=== PATIENT | male | born 1965 | race Caucasian/White ===

== ENCOUNTER → 2017-11-24 06:39 | Outpatient (CLI) | payer OTHER, SELFPAY ==
--- NOTE | 2017-11-24 10:18 | NEURO ---
NCS and/or EMG Patient Report Ordering Doctor: Pablo Werner DATE OF SERVICE: 11/24/17 This is a right upper extremity EMG and nerve conduction study performed on this 51-year-old male who suffered an elbow injury in 2017, subsequently he says that he developed tendinitis around his right elbow and since that time has had numbness and tingling in his fourth and fifth digits in his right hand. He is healthy otherwise with no neck pain or diabetes. Right upper extremity sensory and motor nerve conduction studies performed. There is very mild drop off of the ulnar motor amplitude across the elbow with decreased conduction velocity and prolonged latency across the elbow. The ulnar F wave is mildly prolonged compared to the median F-wave. The median motor and sensory and radial sensory responses are normal, the ulnar latencies are mildly prolonged. Right upper extremity needle electromyography is performed. Muscles evaluated included the first dorsal interosseous, abductor pollicis brevis, abductor digiti quinti, brachioradialis, biceps, triceps, and deltoid muscles. Ulnar innervated muscles included the first dorsal interosseous and abductor digiti quinti did demonstrate large motor units but no pathologic spontaneous activity was noted. All other muscles tested demonstrated normal insertional activity with absence of pathologic spontaneous activity. Motor unit potential recruitment pattern and amplitude was normal. 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
== END ==
PROVIDERS: Family Provider Internal Medicine; PCP Internal Medicine; Visit Provider Orthopaedic Surgery
DX: M17.11 Unilateral primary osteoarthritis, right knee (principal); S52.044A Nondisplaced fracture of coronoid process of right ulna, initial encounter for closed fracture; G56.21 Lesion of ulnar nerve, right upper limb; X58.XXXA Exposure to other specified factors, initial encounter
CPT/HCPCS: 95886; 95910

== ENCOUNTER → 2017-12-24 10:13 | Outpatient (CLI) | payer OTHER, SELFPAY ==
[2017-12-24 12:09] LABS: Absolute Lymphocyte Count 1.47 X10^3/ul (0.83-4.51); Absolute Neutrophil Count 3.9 X10^3/uL (2.0-7.7); Basophil# 0.03 X10^3/uL; Basophil% 0.5 % (0-1); Eosinophil# 0.24 X10^3/uL; Eosinophils% 3.8 % (0-5); Hematocrit 43.7 % (40-54); Hemoglobin 15.2 g/dl (13.0-16.5); Lymphocyte # 1.47 X10^3/ul (4.0); Lymphocyte % 23.4 % (19-41); Mean Corp Hgb Conc 34.8 g/gl (32-36); Mean Corpuscular Hgb 32.8 pg (27.0-32.0); Mean Corpuscular Volume 94.2 fL (80-94); Mean Platelet Vol. 10.5 fl (6.2-12.0); Monocyte# 0.65 X10^3/uL; Monocyte% 10.4 % (0-10); Neutrophil # 3.87 X10^3/uL (2.7-7.7); Neutrophil % 61.6 % (47-70); Platelet Count 244 K/mm3 (150-450); RBC Distribution Width CV 13.2 % (11.6-14.6); RBC Distribution Width SD 44.3 fl (35.1-43.9); Red Blood Count 4.64 M/mm3 (4.6-6.2); White Blood Count 6.3 K/mm3 (4.4-11.0)
[2017-12-24 12:15] LABS: POSITIVE COUNT NO; POSITIVE DIFFERENTIAL NO; POSITIVE MORPHOLOGY NO
[2017-12-24 12:28] LABS: Albumin, Serum 3.9 g/dL (3.2-5.0); BUN 17 mg/dL (7-18); BUN/Creat Ratio 16.5 RATIO (10-20); Creatinine, Serum 1.03 mg/dL (0.70-1.30); EST Glomerular Filtration Rate 81 mL/min (>60); Est Glom Filt Rate - Afr Amer 98 mL/min (>60); Glucose 84 mg/dL (74-106); Protein, Total 7.4 g/dL (6.4-8.2)
[2017-12-24 12:29] LABS: ALB/GLOB Ratio 1.1 RATIO (0.9-2.4); AST(SGOT) 23 U/L (15-37); Alanine Aminotransfer ALT/SGPT 46 U/L (16-61); Alkaline Phosphatase 96 U/L (45-117); Anion Gap 8 (5-15); Calcium,Total 8.7 mg/dL (8.5-10.1); Chloride 109 mmol/L (98-107); Globulin 3.5 g/dL (2.2-4.2); Potassium 3.8 mmol/L (3.5-5.1); Sodium Level 144 mmol/L (136-145)
== END ==
PROVIDERS: Family Provider Internal Medicine; PCP Internal Medicine; Visit Provider Internal Medicine Rheumatology
DX: L40.59 Other psoriatic arthropathy (principal); Z79.899 Other long term (current) drug therapy; L40.8 Other psoriasis; J30.9 Allergic rhinitis, unspecified
CPT/HCPCS: 36415; 80053; 85025

== ENCOUNTER → 2018-03-29 15:26 | Outpatient (CLI) | payer OTHER, SELFPAY ==
[2018-03-29 17:39] LABS: Absolute Lymphocyte Count 1.55 X10^3/ul (0.83-4.51); Absolute Neutrophil Count 3.6 X10^3/uL (2.0-7.7); Basophil# 0.04 X10^3/uL; Basophil% 0.6 % (0-1); Eosinophil# 0.31 X10^3/uL; Eosinophils% 4.8 % (0-5); Hematocrit 43.1 % (40-54); Hemoglobin 14.6 g/dl (13.0-16.5); Lymphocyte # 1.55 X10^3/ul (4.0); Lymphocyte % 23.9 % (19-41); Mean Corp Hgb Conc 33.9 g/gl (32-36); Mean Corpuscular Hgb 32.3 pg (27.0-32.0); Mean Corpuscular Volume 95.4 fL (80-94); Mean Platelet Vol. 10.9 fl (6.2-12.0); Monocyte# 1.01 X10^3/uL; Monocyte% 15.6 % (0-10); Neutrophil # 3.55 X10^3/uL (2.7-7.7); Neutrophil % 54.6 % (47-70); Platelet Count 223 K/mm3 (150-450); RBC Distribution Width CV 13.4 % (11.6-14.6); RBC Distribution Width SD 46.4 fl (35.1-43.9); Red Blood Count 4.52 M/mm3 (4.6-6.2); White Blood Count 6.5 K/mm3 (4.4-11.0)
[2018-03-29 17:45] LABS: POSITIVE COUNT NO; POSITIVE DIFFERENTIAL NO; POSITIVE MORPHOLOGY NO
[2018-03-29 18:00] LABS: ALB/GLOB Ratio 1.2 RATIO (0.9-2.4); AST(SGOT) 35 U/L (15-37); Alanine Aminotransfer ALT/SGPT 58 U/L (16-61); Albumin, Serum 3.9 g/dL (3.2-5.0); Alkaline Phosphatase 77 U/L (45-117); Anion Gap 11 (5-15); BUN 14 mg/dL (7-18); BUN/Creat Ratio 16.2 RATIO (10-20); Calcium,Total 8.8 mg/dL (8.5-10.1); Chloride 105 mmol/L (98-107); Creatinine, Serum 0.86 mg/dL (0.70-1.30); EST Glomerular Filtration Rate 99 mL/min (>60); Est Glom Filt Rate - Afr Amer 120 mL/min (>60); Globulin 3.3 g/dL (2.2-4.2); Glucose 98 mg/dL (74-106); Potassium 3.8 mmol/L (3.5-5.1); Protein, Total 7.2 g/dL (6.4-8.2); Sodium Level 143 mmol/L (136-145)
== END ==
PROVIDERS: Family Provider Internal Medicine; PCP Internal Medicine; Visit Provider Internal Medicine Rheumatology
DX: L40.59 Other psoriatic arthropathy (principal); Z79.899 Other long term (current) drug therapy; L40.8 Other psoriasis; J30.9 Allergic rhinitis, unspecified
CPT/HCPCS: 36415; 80053; 85025

== ENCOUNTER → 2018-06-23 09:14 | Outpatient (CLI) | payer OTHER, SELFPAY ==
[2018-06-23 10:16] LABS: Absolute Lymphocyte Count 1.72 X10^3/ul (0.83-4.51); Absolute Neutrophil Count 3.2 X10^3/uL (2.0-7.7); Basophil# 0.05 X10^3/uL; Basophil% 0.8 % (0-1); Eosinophil# 0.39 X10^3/uL; Eosinophils% 6.3 % (0-5); Hematocrit 44.3 % (40-54); Hemoglobin 14.9 g/dl (13.0-16.5); Lymphocyte # 1.72 X10^3/ul (4.0); Lymphocyte % 27.7 % (19-41); Mean Corp Hgb Conc 33.6 g/gl (32-36); Mean Corpuscular Hgb 32.3 pg (27.0-32.0); Mean Corpuscular Volume 95.9 fL (80-94); Mean Platelet Vol. 10.2 fl (6.2-12.0); Monocyte# 0.89 X10^3/uL; Monocyte% 14.3 % (0-10); Neutrophil # 3.15 X10^3/uL (2.7-7.7); Neutrophil % 50.7 % (47-70); Platelet Count 215 K/mm3 (150-450); RBC Distribution Width CV 13.2 % (11.6-14.6); RBC Distribution Width SD 45.6 fl (35.1-43.9); Red Blood Count 4.62 M/mm3 (4.6-6.2); White Blood Count 6.2 K/mm3 (4.4-11.0)
[2018-06-23 10:22] LABS: POSITIVE COUNT NO; POSITIVE DIFFERENTIAL NO; POSITIVE MORPHOLOGY NO
[2018-06-23 10:34] LABS: ALB/GLOB Ratio 1.1 RATIO (0.9-2.4); AST(SGOT) 22 U/L (15-37); Alanine Aminotransfer ALT/SGPT 31 U/L (16-61); Albumin, Serum 3.7 g/dL (3.2-5.0); Alkaline Phosphatase 90 U/L (45-117); Anion Gap 4 (5-15); BUN 11 mg/dL (7-18); BUN/Creat Ratio 12.3 RATIO (10-20); Calcium,Total 8.5 mg/dL (8.5-10.1); Chloride 107 mmol/L (98-107); EST Glomerular Filtration Rate 95 mL/min (>60); Est Glom Filt Rate - Afr Amer 115 mL/min (>60); Globulin 3.3 g/dL (2.2-4.2); Glucose 87 mg/dL (74-106); Potassium 3.8 mmol/L (3.5-5.1); Sodium Level 140 mmol/L (136-145)
== END ==
PROVIDERS: Family Provider Internal Medicine; PCP Internal Medicine; Referring Provider Internal Medicine Rheumatology; Visit Provider Internal Medicine Rheumatology
DX: L40.59 Other psoriatic arthropathy (principal); Z79.899 Other long term (current) drug therapy; L40.8 Other psoriasis; M72.2 Plantar fascial fibromatosis; J30.9 Allergic rhinitis, unspecified
CPT/HCPCS: 36415; 80053; 85025

== ENCOUNTER → 2018-09-28 10:06 | Outpatient (CLI) | payer OTHER, SELFPAY ==
[2018-09-28 12:04] LABS: Absolute Lymphocyte Count 1.68 X10^3/ul (0.83-4.51); Absolute Neutrophil Count 3.5 X10^3/uL (2.0-7.7); Basophil# 0.03 X10^3/uL; Basophil% 0.5 % (0-1); Eosinophil# 0.24 X10^3/uL; Eosinophils% 3.9 % (0-5); Hematocrit 46.1 % (40-54); Hemoglobin 15.3 g/dl (13.0-16.5); Lymphocyte # 1.68 X10^3/ul (4.0); Mean Corp Hgb Conc 33.2 g/gl (32-36); Mean Corpuscular Hgb 31.9 pg (27.0-32.0); Mean Corpuscular Volume 96.2 fL (80-94); Mean Platelet Vol. 10.6 fl (6.2-12.0); Monocyte# 0.72 X10^3/uL; Monocyte% 11.6 % (0-10); Neutrophil # 3.54 X10^3/uL (2.7-7.7); Neutrophil % 56.8 % (47-70); Platelet Count 241 K/mm3 (150-450); RBC Distribution Width CV 13.1 % (11.6-14.6); RBC Distribution Width SD 45.3 fl (35.1-43.9); Red Blood Count 4.79 M/mm3 (4.6-6.2); White Blood Count 6.2 K/mm3 (4.4-11.0)
[2018-09-28 12:10] LABS: POSITIVE COUNT NO; POSITIVE DIFFERENTIAL NO; POSITIVE MORPHOLOGY NO
[2018-09-28 12:13] LABS: ALB/GLOB Ratio 1.1 RATIO (0.9-2.4); AST(SGOT) 27 U/L (15-37); Alanine Aminotransfer ALT/SGPT 43 U/L (16-61); Albumin, Serum 3.8 g/dL (3.2-5.0); Alkaline Phosphatase 96 U/L (45-117); Anion Gap 7 (5-15); BUN 14 mg/dL (7-18); Chloride 107 mmol/L (98-107); Creatinine, Serum 0.93 mg/dL (0.70-1.30); EST Glomerular Filtration Rate 91 mL/min (>60); Est Glom Filt Rate - Afr Amer 110 mL/min (>60); Globulin 3.5 g/dL (2.2-4.2); Glucose 101 mg/dL (74-106); Potassium 4.2 mmol/L (3.5-5.1); Protein, Total 7.3 g/dL (6.4-8.2); Sodium Level 141 mmol/L (136-145)
== END ==
PROVIDERS: Family Provider Internal Medicine; PCP Internal Medicine; Referring Provider Internal Medicine Rheumatology; Visit Provider Internal Medicine Rheumatology
DX: L40.59 Other psoriatic arthropathy (principal); Z79.899 Other long term (current) drug therapy; L40.8 Other psoriasis; M72.2 Plantar fascial fibromatosis; J30.9 Allergic rhinitis, unspecified
CPT/HCPCS: 36415; 80053; 85025

== ENCOUNTER → 2018-12-27 | Outpatient (CLI) | payer OTHER, SELFPAY ==
[2018-12-27 13:53] LABS: Absolute Lymphocyte Count 1.97 X10^3/ul (0.83-4.51); Absolute Neutrophil Count 3.5 X10^3/uL (2.0-7.7); Basophil# 0.03 X10^3/uL; Basophil% 0.5 % (0-1); Hematocrit 44.3 % (40-54); Hemoglobin 15.5 g/dl (13.0-16.5); Lymphocyte # 1.97 X10^3/ul (4.0); Lymphocyte % 29.8 % (19-41); Mean Corpuscular Hgb 32.5 pg (27.0-32.0); Mean Corpuscular Volume 92.9 fL (80-94); Mean Platelet Vol. 10.2 fl (6.2-12.0); Monocyte# 0.86 X10^3/uL; Neutrophil # 3.52 X10^3/uL (2.7-7.7); Neutrophil % 53.4 % (47-70); Platelet Count 242 K/mm3 (150-450); RBC Distribution Width CV 13.4 % (11.6-14.6); RBC Distribution Width SD 45.2 fl (35.1-43.9); Red Blood Count 4.77 M/mm3 (4.6-6.2); White Blood Count 6.6 K/mm3 (4.4-11.0)
[2018-12-27 13:56] LABS: POSITIVE COUNT NO; POSITIVE DIFFERENTIAL NO; POSITIVE MORPHOLOGY NO
[2018-12-27 14:03] LABS: ALB/GLOB Ratio 1.2 RATIO (0.9-2.4); AST(SGOT) 23 U/L (15-37); Alanine Aminotransfer ALT/SGPT 40 U/L (16-61); Alkaline Phosphatase 88 U/L (45-117); Anion Gap 3 (5-15); BUN 13 mg/dL (7-18); BUN/Creat Ratio 13.1 RATIO (10-20); Calcium,Total 8.8 mg/dL (8.5-10.1); Chloride 108 mmol/L (98-107); Creatinine, Serum 0.99 mg/dL (0.70-1.30); EST Glomerular Filtration Rate 85 mL/min (>60); Est Glom Filt Rate - Afr Amer 103 mL/min (>60); Globulin 3.3 g/dL (2.2-4.2); Glucose 84 mg/dL (74-106); Protein, Total 7.3 g/dL (6.4-8.2); Sodium Level 140 mmol/L (136-145)
== END | disposition home or self-care (01) ==
LOC: MTLAB 12:55
PROVIDERS: Family Provider Internal Medicine; PCP Internal Medicine; Referring Provider Internal Medicine Rheumatology; Visit Provider Internal Medicine Rheumatology
DX: L40.59 Other psoriatic arthropathy (principal); Z79.899 Other long term (current) drug therapy; L40.8 Other psoriasis; M72.2 Plantar fascial fibromatosis; J30.9 Allergic rhinitis, unspecified
CPT/HCPCS: 36415; 80053; 85025

== ENCOUNTER → 2019-04-01 09:01 | Outpatient (CLI) | payer OTHER, SELFPAY ==
[2019-04-01 10:52] LABS: Absolute Lymphocyte Count 1.69 X10^3/ul (0.83-4.51); Absolute Neutrophil Count 4.2 X10^3/uL (2.0-7.7); Basophil# 0.04 X10^3/uL; Basophil% 0.6 % (0-1); Eosinophils% 4.2 % (0-5); Hematocrit 44.6 % (40-54); Hemoglobin 15.7 g/dl (13.0-16.5); Lymphocyte # 1.69 X10^3/ul (4.0); Lymphocyte % 23.8 % (19-41); Mean Corp Hgb Conc 35.2 g/gl (32-36); Mean Corpuscular Hgb 32.6 pg (27.0-32.0); Mean Corpuscular Volume 92.5 fL (80-94); Mean Platelet Vol. 10.8 fl (6.2-12.0); Monocyte# 0.89 X10^3/uL; Monocyte% 12.5 % (0-10); Neutrophil # 4.16 X10^3/uL (2.7-7.7); Neutrophil % 58.5 % (47-70); Platelet Count 222 K/mm3 (150-450); RBC Distribution Width CV 13.1 % (11.6-14.6); Red Blood Count 4.82 M/mm3 (4.6-6.2); White Blood Count 7.1 K/mm3 (4.4-11.0)
[2019-04-01 10:58] LABS: POSITIVE COUNT NO; POSITIVE DIFFERENTIAL NO; POSITIVE MORPHOLOGY NO
[2019-04-01 11:00] LABS: ALB/GLOB Ratio 1.1 RATIO (0.9-2.4); AST(SGOT) 20 U/L (15-37); Alanine Aminotransfer ALT/SGPT 34 U/L (16-61); Albumin, Serum 3.8 g/dL (3.2-5.0); Alkaline Phosphatase 91 U/L (45-117); Anion Gap 8 (5-15); BUN 16 mg/dL (7-18); BUN/Creat Ratio 15.2 RATIO (10-20); Calcium,Total 8.9 mg/dL (8.5-10.1); Chloride 107 mmol/L (98-107); Creatinine, Serum 1.05 mg/dL (0.70-1.30); EST Glomerular Filtration Rate 79 mL/min (>60); Est Glom Filt Rate - Afr Amer 96 mL/min (>60); Globulin 3.4 g/dL (2.2-4.2); Glucose 127 mg/dL (74-106); Potassium 3.8 mmol/L (3.5-5.1); Protein, Total 7.2 g/dL (6.4-8.2); Sodium Level 141 mmol/L (136-145)
== END ==
PROVIDERS: Family Provider Internal Medicine; PCP Internal Medicine; Referring Provider Internal Medicine Rheumatology; Visit Provider Internal Medicine Rheumatology
DX: L40.59 Other psoriatic arthropathy (principal); Z79.899 Other long term (current) drug therapy; L40.8 Other psoriasis; M72.2 Plantar fascial fibromatosis; J30.9 Allergic rhinitis, unspecified
CPT/HCPCS: 36415; 80053; 85025

== ENCOUNTER → 2019-06-27 12:41 | Outpatient (CLI) | payer OTHER, SELFPAY ==
[2019-06-27 13:55] LABS: Absolute Lymphocyte Count 1.63 X10^3/uL (0.83-4.51); Absolute Neutrophil Count 3.7 X10^3/uL (2.0-7.7); Basophil# 0.07 X10^3/uL; Eosinophil# 0.33 X10^3/uL; Eosinophils% 4.9 % (0-5); Hematocrit 45.4 % (40-54); Hemoglobin 15.8 g/dL (13.0-16.5); Lymphocyte # 1.63 X10^3/ul (4.0); Lymphocyte % 24.3 % (19-41); Mean Corp Hgb Conc 34.8 g/dL (32-36); Mean Corpuscular Hgb 32.8 pg (27.0-32.0); Mean Corpuscular Volume 94.2 fL (80-94); Mean Platelet Vol. 10.5 fl (6.2-12.0); Monocyte# 0.91 X10^3/uL; Monocyte% 13.5 % (0-10); NRBC Flagged by Analyzer 0 % (0-5); Neutrophil # 3.74 X10^3/uL (2.7-7.7); Neutrophil % 55.7 % (47-70); Platelet Count 233 K/mm3 (150-450); RBC Distribution Width CV 12.4 % (11.6-14.6); RBC Distribution Width SD 42.6 fl (35.1-43.9); Red Blood Count 4.82 M/mm3 (4.6-6.2); White Blood Count 6.7 K/mm3 (4.4-11.0)
[2019-06-27 14:09] LABS: ALB/GLOB Ratio 1.4 RATIO (0.9-2.4); AST(SGOT) 33 U/L (15-37); Alanine Aminotransfer ALT/SGPT 43 U/L (16-61); Albumin, Serum 4.2 g/dL (3.2-5.0); Alkaline Phosphatase 95 U/L (45-117); Anion Gap 7 (5-15); BUN 11 mg/dL (7-18); BUN/Creat Ratio 11.9 RATIO (10-20); Calcium,Total 8.5 mg/dL (8.5-10.1); Chloride 109 mmol/L (98-107); Creatinine, Serum 0.93 mg/dL (0.70-1.30); EST Glomerular Filtration Rate 91 mL/min (>60); Est Glom Filt Rate - Afr Amer 110 mL/min (>60); Globulin 2.9 g/dL (2.2-4.2); Glucose 92 mg/dL (74-106); Potassium 4.3 mmol/L (3.5-5.1); Protein, Total 7.1 g/dL (6.4-8.2); Sodium Level 143 mmol/L (136-145)
== END ==
PROVIDERS: Family Provider Internal Medicine; PCP Internal Medicine; Referring Provider Internal Medicine Rheumatology; Visit Provider Internal Medicine Rheumatology
DX: L40.59 Other psoriatic arthropathy (principal); Z79.899 Other long term (current) drug therapy; L40.8 Other psoriasis; M72.2 Plantar fascial fibromatosis; J30.9 Allergic rhinitis, unspecified
CPT/HCPCS: 36415; 80053; 85025

== ENCOUNTER → 2019-09-29 13:08 | Outpatient (CLI) | payer OTHER, SELFPAY ==
[2019-09-29 14:15] LABS: Absolute Lymphocyte Count 1.96 X10^3/uL (0.83-4.51); Absolute Neutrophil Count 3.3 X10^3/uL (2.0-7.7); Basophil# 0.06 X10^3/uL; Basophil% 0.9 % (0-1); Eosinophil# 0.24 X10^3/uL; Eosinophils% 3.7 % (0-5); Hemoglobin 15.3 g/dL (13.0-16.5); Lymphocyte # 1.96 X10^3/ul (4.0); Lymphocyte % 30.2 % (19-41); Mean Corp Hgb Conc 34.8 g/dL (32-36); Mean Corpuscular Hgb 33.2 pg (27.0-32.0); Mean Corpuscular Volume 95.4 fL (80-94); Mean Platelet Vol. 10.2 fl (6.2-12.0); Monocyte# 0.95 X10^3/uL; Monocyte% 14.7 % (0-10); NRBC Flagged by Analyzer 0 % (0-5); Neutrophil # 3.25 X10^3/uL (2.7-7.7); Neutrophil % 50.2 % (47-70); Platelet Count 245 K/mm3 (150-450); RBC Distribution Width CV 12.6 % (11.6-14.6); RBC Distribution Width SD 44.5 fl (35.1-43.9); Red Blood Count 4.61 M/mm3 (4.6-6.2); White Blood Count 6.5 K/mm3 (4.4-11.0)
[2019-09-29 14:41] LABS: ALB/GLOB Ratio 1.1 RATIO (0.9-2.4); AST(SGOT) 23 U/L (15-37); Alanine Aminotransfer ALT/SGPT 44 U/L (16-61); Albumin, Serum 3.9 g/dL (3.2-5.0); Alkaline Phosphatase 77 U/L (45-117); Anion Gap 3 (5-15); BUN 16 mg/dL (7-18); BUN/Creat Ratio 17.7 RATIO (10-20); Calcium,Total 8.8 mg/dL (8.5-10.1); Chloride 108 mmol/L (98-107); EST Glomerular Filtration Rate 94 mL/min (>60); Est Glom Filt Rate - Afr Amer 113 mL/min (>60); Globulin 3.4 g/dL (2.2-4.2); Glucose 82 mg/dL (74-106); Potassium 3.8 mmol/L (3.5-5.1); Protein, Total 7.3 g/dL (6.4-8.2); Sodium Level 139 mmol/L (136-145)
== END ==
PROVIDERS: Family Provider Internal Medicine; PCP Internal Medicine; Referring Provider Internal Medicine Rheumatology; Visit Provider Internal Medicine Rheumatology
DX: L40.59 Other psoriatic arthropathy (principal); Z79.899 Other long term (current) drug therapy; L40.8 Other psoriasis; M72.2 Plantar fascial fibromatosis; J30.9 Allergic rhinitis, unspecified
CPT/HCPCS: 36415; 80053; 85025

== ENCOUNTER → 2019-12-19 11:08 | Outpatient (CLI) | payer OTHER, SELFPAY ==
[2019-12-19 12:11] LABS: Absolute Lymphocyte Count 1.55 X10^3/uL (0.83-4.51); Absolute Neutrophil Count 4.4 X10^3/uL (2.0-7.7); Basophil# 0.07 X10^3/uL; Eosinophil# 0.41 X10^3/uL; Eosinophils% 5.6 % (0-5); Hematocrit 46.2 % (40-54); Hemoglobin 16.4 g/dL (13.0-16.5); Lymphocyte # 1.55 X10^3/ul (4.0); Lymphocyte % 21.3 % (19-41); Mean Corp Hgb Conc 35.5 g/dL (32-36); Mean Corpuscular Volume 95.9 fL (80-94); Mean Platelet Vol. 10.5 fl (6.2-12.0); Monocyte# 0.86 X10^3/uL; Monocyte% 11.8 % (0-10); NRBC Flagged by Analyzer 0 % (0-5); Neutrophil # 4.36 X10^3/uL (2.7-7.7); Neutrophil % 59.8 % (47-70); Platelet Count 197 K/mm3 (150-450); RBC Distribution Width CV 12.9 % (11.6-14.6); RBC Distribution Width SD 43.8 fl (35.1-43.9); Red Blood Count 4.82 M/mm3 (4.6-6.2); White Blood Count 7.3 K/mm3 (4.4-11.0)
[2019-12-19 12:37] LABS: ALB/GLOB Ratio 1.1 RATIO (0.9-2.4); AST(SGOT) 25 U/L (15-37); Alanine Aminotransfer ALT/SGPT 31 U/L (16-61); Alkaline Phosphatase 104 U/L (45-117); Anion Gap 5 (5-15); BUN 17 mg/dL (7-18); BUN/Creat Ratio 16.7 RATIO (10-20); Calcium,Total 9.1 mg/dL (8.5-10.1); Chloride 110 mmol/L (98-107); Creatinine, Serum 1.02 mg/dL (0.70-1.30); EST Glomerular Filtration Rate 82 mL/min (>60); Est Glom Filt Rate - Afr Amer 99 mL/min (>60); Globulin 3.5 g/dL (2.2-4.2); Glucose 91 mg/dL (74-106); Potassium 4.1 mmol/L (3.5-5.1); Protein, Total 7.5 g/dL (6.4-8.2); Sodium Level 141 mmol/L (136-145)
== END ==
PROVIDERS: PCP Internal Medicine; Referring Provider Internal Medicine Rheumatology; Visit Provider Internal Medicine Rheumatology
DX: L40.59 Other psoriatic arthropathy (principal); Z79.899 Other long term (current) drug therapy; L40.8 Other psoriasis; M72.2 Plantar fascial fibromatosis; J30.9 Allergic rhinitis, unspecified
CPT/HCPCS: 36415; 80053; 85025

== ENCOUNTER → 2020-05-03 09:41 | Outpatient (CLI) | payer OTHER, SELFPAY ==
[2020-05-03 12:32] LABS: Basophil# 0.04 X10^3/uL; Basophil% 0.5 % (0-1); Eosinophil# 0.05 X10^3/uL; Eosinophils% 0.6 % (0-5); Hematocrit 45.4 % (40-54); Hemoglobin 15.4 g/dL (13.0-16.5); Lymphocyte % 13.8 % (19-41); Mean Corp Hgb Conc 33.9 g/dL (32-36); Mean Corpuscular Hgb 32.8 pg (27.0-32.0); Mean Corpuscular Volume 96.6 fL (80-94); Mean Platelet Vol. 10.8 fl (6.2-12.0); Monocyte# 0.32 X10^3/uL; Monocyte% 3.7 % (0-10); NRBC Flagged by Analyzer 0 % (0-5); Neutrophil # 6.98 X10^3/uL (2.7-7.7); Neutrophil % 80.5 % (47-70); Platelet Count 253 K/mm3 (150-450); RBC Distribution Width CV 13.2 % (11.6-14.6); White Blood Count 8.7 K/mm3 (4.4-11.0)
[2020-05-03 12:57] LABS: AST(SGOT) 16 U/L (15-37); Alanine Aminotransfer ALT/SGPT 36 U/L (16-61); Albumin, Serum 3.8 g/dL (3.2-5.0); Alkaline Phosphatase 90 U/L (45-117); Anion Gap 6 (5-15); BUN 16 mg/dL (7-18); BUN/Creat Ratio 15.5 RATIO (10-20); Calcium,Total 8.8 mg/dL (8.5-10.1); Chloride 105 mmol/L (98-107); Creatinine, Serum 1.03 mg/dL (0.70-1.30); EST Glomerular Filtration Rate 81 mL/min (>60); Est Glom Filt Rate - Afr Amer 97 mL/min (>60); Globulin 3.7 g/dL (2.2-4.2); Glucose 164 mg/dL (74-106); Potassium 3.8 mmol/L (3.5-5.1); Protein, Total 7.5 g/dL (6.4-8.2); Sodium Level 138 mmol/L (136-145)
== END ==
PROVIDERS: PCP Internal Medicine; Referring Provider Internal Medicine Rheumatology; Visit Provider Internal Medicine Rheumatology
DX: L40.59 Other psoriatic arthropathy (principal); Z79.899 Other long term (current) drug therapy; L40.8 Other psoriasis; M72.2 Plantar fascial fibromatosis; J30.9 Allergic rhinitis, unspecified
CPT/HCPCS: 36415; 80053; 85025

== ENCOUNTER → 2020-07-17 15:06 | Outpatient (CLI) | payer OTHER, SELFPAY ==
[2020-07-17 17:54] LABS: Absolute Lymphocyte Count 1.72 X10^3/uL (0.83-4.51); Absolute Neutrophil Count 8.7 X10^3/uL (2.0-7.7); Basophil# 0.08 X10^3/uL; Basophil% 0.7 % (0-1); Eosinophil# 0.22 X10^3/uL; Eosinophils% 1.9 % (0-5); Hematocrit 44.7 % (40-54); Hemoglobin 15.1 g/dL (13.0-16.5); Lymphocyte # 1.72 X10^3/ul (4.0); Lymphocyte % 14.6 % (19-41); Mean Corp Hgb Conc 33.8 g/dL (32-36); Mean Corpuscular Hgb 32.5 pg (27.0-32.0); Mean Corpuscular Volume 96.3 fL (80-94); Mean Platelet Vol. 10.4 fl (6.2-12.0); Monocyte% 9.3 % (0-10); NRBC Flagged by Analyzer 0 % (0-5); Neutrophil # 8.65 X10^3/uL (2.7-7.7); Neutrophil % 73.2 % (47-70); Platelet Count 245 K/mm3 (150-450); RBC Distribution Width SD 46.1 fl (35.1-43.9); Red Blood Count 4.64 M/mm3 (4.6-6.2); White Blood Count 11.8 K/mm3 (4.4-11.0)
[2020-07-17 18:10] LABS: AST(SGOT) 19 U/L (15-37); Alanine Aminotransfer ALT/SGPT 35 U/L (16-61); Albumin, Serum 3.7 g/dL (3.2-5.0); Alkaline Phosphatase 96 U/L (45-117); Anion Gap 7 (5-15); BUN 14 mg/dL (7-18); BUN/Creat Ratio 13.7 RATIO (10-20); Calcium,Total 8.5 mg/dL (8.5-10.1); Chloride 106 mmol/L (98-107); Creatinine, Serum 1.02 mg/dL (0.70-1.30); EST Glomerular Filtration Rate 81 mL/min (>60); Est Glom Filt Rate - Afr Amer 98 mL/min (>60); Globulin 3.6 g/dL (2.2-4.2); Glucose 87 mg/dL (74-106); Potassium 3.8 mmol/L (3.5-5.1); Protein, Total 7.3 g/dL (6.4-8.2); Sodium Level 141 mmol/L (136-145)
== END ==
PROVIDERS: PCP Internal Medicine; Referring Provider Internal Medicine Rheumatology; Visit Provider Internal Medicine Rheumatology
DX: L40.59 Other psoriatic arthropathy (principal); Z79.899 Other long term (current) drug therapy; L40.8 Other psoriasis; M72.2 Plantar fascial fibromatosis; J30.9 Allergic rhinitis, unspecified
CPT/HCPCS: 36415; 80053; 85025

== ENCOUNTER → 2020-09-07 13:13 | Outpatient (CLI) | payer OTHER, SELFPAY ==
[2020-07-31 14:25] VITALS: BMI 28.0
--- NOTE | 2020-09-07 13:20 | RAD_ITS ---
STUDY: X-RAY CHEST REASON FOR EXAM: Male, 54 years old. sob, chronic asthma since childhood. no other chest complaints. primary MD checking for scar tissue in the lungs also. TECHNIQUE: PA and lateral views of the chest. COMPARISON: None. FINDINGS: The lungs are clear and expanded. There is no demonstrated pleural abnormality. Normal size heart. Normal mediastinum and mary. Normal visualized pulmonary arteries. Normal visualized aortic arch and descending thoracic aorta. Normal visualized thoracic spine. Normal visualized ribs, clavicles, and shoulders. There is no demonstrated abnormality of the visualized soft tissue structures of the upper abdomen. RAD/Chest PA and Lateral IMPRESSION: Normal x-ray examination of the chest. Electronically Signed: Rex Mattson MD at 17:01 EST Tel , Service support ,
[2020-09-07 16:16] LABS: Absolute Lymphocyte Count 0.94 X10^3/uL (0.83-4.51); Absolute Neutrophil Count 9.6 X10^3/uL (2.0-7.7); Basophil# 0.02 X10^3/uL; Basophil% 0.2 % (0-1); Hematocrit 46.1 % (40-54); Hemoglobin 15.5 g/dL (13.0-16.5); Lymphocyte # 0.94 X10^3/ul (4.0); Lymphocyte % 8.4 % (19-41); Mean Corp Hgb Conc 33.6 g/dL (32-36); Mean Corpuscular Volume 95.2 fL (80-94); Mean Platelet Vol. 10.6 fl (6.2-12.0); Monocyte# 0.64 X10^3/uL; Monocyte% 5.7 % (0-10); NRBC Flagged by Analyzer 0 % (0-5); Neutrophil # 9.58 X10^3/uL (2.7-7.7); Neutrophil % 85.2 % (47-70); Platelet Count 272 K/mm3 (150-450); RBC Distribution Width CV 12.7 % (11.6-14.6); RBC Distribution Width SD 43.9 fl (35.1-43.9); Red Blood Count 4.84 M/mm3 (4.6-6.2); White Blood Count 11.2 K/mm3 (4.4-11.0)
[2020-09-11 19:38] LABS: Immunoglobulin E 37 IU/mL (6-495)
== END ==
PROVIDERS: PCP Internal Medicine; Referring Provider Internal Medicine Pulmonary Disease; Visit Provider Internal Medicine Pulmonary Disease
DX: R06.00 Dyspnea, unspecified (principal); J45.909 Unspecified asthma, uncomplicated; T78.40XA Allergy, unspecified, initial encounter
CPT/HCPCS: 36415; 71046; 82785; 85025

== ENCOUNTER → 2020-10-05 14:09 | Outpatient (CLI) | payer OTHER, SELFPAY ==
[2020-07-31 14:25] VITALS: BMI 28.0
[2020-10-05 17:38] LABS: Absolute Lymphocyte Count 2.09 X10^3/uL (0.83-4.51); Absolute Neutrophil Count 3.5 X10^3/uL (2.0-7.7); Basophil# 0.07 X10^3/uL; Eosinophils% 4.3 % (0-5); Hematocrit 46.3 % (40-54); Hemoglobin 15.8 g/dL (13.0-16.5); Lymphocyte # 2.09 X10^3/ul (4.0); Mean Corp Hgb Conc 34.1 g/dL (32-36); Mean Corpuscular Hgb 32.8 pg (27.0-32.0); Mean Corpuscular Volume 96.3 fL (80-94); Mean Platelet Vol. 10.5 fl (6.2-12.0); Monocyte# 0.94 X10^3/uL; Monocyte% 13.5 % (0-10); NRBC Flagged by Analyzer 0 % (0-5); Neutrophil % 50.3 % (47-70); Platelet Count 286 K/mm3 (150-450); RBC Distribution Width SD 45.7 fl (35.1-43.9); Red Blood Count 4.81 M/mm3 (4.6-6.2)
[2020-10-05 17:59] LABS: ALB/GLOB Ratio 1.1 RATIO (0.9-2.4); AST(SGOT) 19 U/L (15-37); Alanine Aminotransfer ALT/SGPT 35 U/L (16-61); Albumin, Serum 3.8 g/dL (3.2-5.0); Alkaline Phosphatase 98 U/L (45-117); Anion Gap 6 (5-15); BUN 16 mg/dL (7-18); BUN/Creat Ratio 15.8 RATIO (10-20); Calcium,Total 8.8 mg/dL (8.5-10.1); Chloride 107 mmol/L (98-107); Creatinine, Serum 1.01 mg/dL (0.70-1.30); EST Glomerular Filtration Rate 82 mL/min (>60); Est Glom Filt Rate - Afr Amer 99 mL/min (>60); Globulin 3.5 g/dL (2.2-4.2); Glucose 104 mg/dL (74-106); Potassium 3.5 mmol/L (3.5-5.1); Protein, Total 7.3 g/dL (6.4-8.2); Sodium Level 140 mmol/L (136-145)
== END ==
PROVIDERS: PCP Internal Medicine; Referring Provider Internal Medicine Rheumatology; Visit Provider Internal Medicine Rheumatology
DX: L40.59 Other psoriatic arthropathy (principal); Z79.899 Other long term (current) drug therapy; L40.8 Other psoriasis; M72.2 Plantar fascial fibromatosis; J30.9 Allergic rhinitis, unspecified
CPT/HCPCS: 36415; 80053; 85025

== ENCOUNTER → 2020-12-27 16:07 | Outpatient (CLI) | payer OTHER, SELFPAY ==
[2020-12-27 17:46] LABS: Absolute Lymphocyte Count 2.39 X10^3/uL (0.83-4.51); Absolute Neutrophil Count 6.4 X10^3/uL (2.0-7.7); Basophil# 0.07 X10^3/uL; Basophil% 0.7 % (0-1); Eosinophil# 0.31 X10^3/uL; Eosinophils% 2.9 % (0-5); Hematocrit 44.4 % (40-54); Hemoglobin 15.5 g/dL (13.0-16.5); Lymphocyte # 2.39 X10^3/ul (4.0); Lymphocyte % 22.5 % (19-41); Mean Corp Hgb Conc 34.9 g/dL (32-36); Mean Corpuscular Hgb 33.5 pg (27.0-32.0); Mean Corpuscular Volume 95.9 fL (80-94); Mean Platelet Vol. 10.2 fl (6.2-12.0); Monocyte# 1.32 X10^3/uL; Monocyte% 12.4 % (0-10); NRBC Flagged by Analyzer 0 % (0-5); Neutrophil # 6.41 X10^3/uL (2.7-7.7); Neutrophil % 60.3 % (47-70); Platelet Count 262 K/mm3 (150-450); RBC Distribution Width CV 13.2 % (11.6-14.6); RBC Distribution Width SD 45.3 fl (35.1-43.9); Red Blood Count 4.63 M/mm3 (4.6-6.2); White Blood Count 10.6 K/mm3 (4.4-11.0)
[2020-12-27 18:23] LABS: AST(SGOT) 22 U/L (15-37); Alanine Aminotransfer ALT/SGPT 34 U/L (16-61); Albumin, Serum 3.8 g/dL (3.2-5.0); Alkaline Phosphatase 94 U/L (45-117); Anion Gap 4 (5-15); BUN 13 mg/dL (7-18); BUN/Creat Ratio 13.5 RATIO (10-20); Chloride 108 mmol/L (98-107); Creatinine, Serum 0.97 mg/dL (0.70-1.30); EST Glomerular Filtration Rate 86 mL/min (>60); Est Glom Filt Rate - Afr Amer 105 mL/min (>60); Globulin 3.7 g/dL (2.2-4.2); Glucose 84 mg/dL (74-106); Potassium 3.8 mmol/L (3.5-5.1); Protein, Total 7.5 g/dL (6.4-8.2); Sodium Level 140 mmol/L (136-145)
== END ==
PROVIDERS: PCP Internal Medicine; Referring Provider Internal Medicine Rheumatology; Visit Provider Internal Medicine Rheumatology
DX: L40.59 Other psoriatic arthropathy (principal); Z79.899 Other long term (current) drug therapy; L40.8 Other psoriasis; M72.2 Plantar fascial fibromatosis; J30.9 Allergic rhinitis, unspecified
CPT/HCPCS: 36415; 80053; 85025

== ENCOUNTER → 2021-04-01 15:52 | Outpatient (CLI) | payer OTHER, SELFPAY ==
[2021-04-01 17:38] LABS: Absolute Lymphocyte Count 1.42 X10^3/uL (0.83-4.51); Absolute Neutrophil Count 5.6 X10^3/uL (2.0-7.7); Basophil# 0.04 X10^3/uL; Basophil% 0.5 % (0-1); Eosinophil# 0.24 X10^3/uL; Hemoglobin 16.1 g/dL (13.0-16.5); Lymphocyte # 1.42 X10^3/ul (0.83-4.51); Lymphocyte % 17.8 % (19-41); Mean Corp Hgb Conc 34.3 g/dL (32-36); Mean Corpuscular Hgb 32.1 pg (27.0-32.0); Mean Corpuscular Volume 93.6 fL (80-94); Mean Platelet Vol. 10.2 fl (6.2-12.0); Monocyte# 0.64 X10^3/uL; NRBC Flagged by Analyzer 0 % (0-5); Neutrophil # 5.59 X10^3/uL (2.7-7.7); Neutrophil % 69.9 % (47-70); Platelet Count 262 K/mm3 (150-450); RBC Distribution Width CV 13.2 % (11.6-14.6); RBC Distribution Width SD 45.1 fl (35.1-43.9); Red Blood Count 5.02 M/mm3 (4.6-6.2)
[2021-04-01 18:12] LABS: AST(SGOT) 28 U/L (15-37); Alanine Aminotransfer ALT/SGPT 52 U/L (16-61); Albumin, Serum 3.7 g/dL (3.2-5.0); Alkaline Phosphatase 100 U/L (45-117); Anion Gap 6 (5-15); BUN 14 mg/dL (7-18); BUN/Creat Ratio 12.7 RATIO (10-20); Calcium,Total 9.3 mg/dL (8.5-10.1); Chloride 104 mmol/L (98-107); EST Glomerular Filtration Rate 74 mL/min (>60); Est Glom Filt Rate - Afr Amer 90 mL/min (>60); Globulin 3.8 g/dL (2.2-4.2); Glucose 94 mg/dL (74-106); Protein, Total 7.5 g/dL (6.4-8.2); Sodium Level 139 mmol/L (136-145)
== END ==
PROVIDERS: PCP Internal Medicine; Referring Provider Internal Medicine Rheumatology; Visit Provider Internal Medicine Rheumatology
DX: L40.59 Other psoriatic arthropathy (principal); Z79.899 Other long term (current) drug therapy; L40.8 Other psoriasis; M72.2 Plantar fascial fibromatosis; J30.9 Allergic rhinitis, unspecified
CPT/HCPCS: 36415; 80053; 85025

== ENCOUNTER → 2021-06-14 13:46 | Outpatient (CLI) | payer OTHER, SELFPAY ==
[2021-06-14 15:25] LABS: Absolute Lymphocyte Count 1.96 X10^3/uL (0.83-4.51); Basophil# 0.08 X10^3/uL; Basophil% 0.9 % (0-1); Eosinophil# 0.33 X10^3/uL; Eosinophils% 3.9 % (0-5); Hematocrit 45.2 % (40-54); Hemoglobin 15.6 g/dL (13.0-16.5); Lymphocyte # 1.96 X10^3/ul (0.83-4.51); Lymphocyte % 22.9 % (19-41); Mean Corp Hgb Conc 34.5 g/dL (32-36); Mean Corpuscular Hgb 32.9 pg (27.0-32.0); Mean Corpuscular Volume 95.4 fL (80-94); Mean Platelet Vol. 10.2 fl (6.2-12.0); Monocyte# 1.12 X10^3/uL; Monocyte% 13.1 % (0-10); NRBC Flagged by Analyzer 0 % (0-5); Neutrophil # 4.98 X10^3/uL (2.7-7.7); Neutrophil % 58.1 % (47-70); Platelet Count 244 K/mm3 (150-450); RBC Distribution Width CV 13.3 % (11.6-14.6); RBC Distribution Width SD 46.2 fl (35.1-43.9); Red Blood Count 4.74 M/mm3 (4.6-6.2); White Blood Count 8.6 K/mm3 (4.4-11.0)
[2021-06-14 15:51] LABS: AST(SGOT) 24 U/L (15-37); Alanine Aminotransfer ALT/SGPT 33 U/L (16-61); Albumin, Serum 3.4 g/dL (3.2-5.0); Alkaline Phosphatase 87 U/L (45-117); Anion Gap 6 (5-15); BUN 12 mg/dL (7-18); BUN/Creat Ratio 11.3 RATIO (10-20); Calcium,Total 8.5 mg/dL (8.5-10.1); Chloride 110 mmol/L (98-107); Creatinine, Serum 1.06 mg/dL (0.70-1.30); EST Glomerular Filtration Rate 78 mL/min (>60); Est Glom Filt Rate - Afr Amer 94 mL/min (>60); Globulin 3.5 g/dL (2.2-4.2); Glucose 98 mg/dL (74-106); Potassium 4.1 mmol/L (3.5-5.1); Protein, Total 6.9 g/dL (6.4-8.2); Sodium Level 140 mmol/L (136-145)
== END ==
PROVIDERS: PCP Internal Medicine; Referring Provider Internal Medicine Rheumatology; Visit Provider Internal Medicine Rheumatology
DX: L40.59 Other psoriatic arthropathy (principal); Z79.899 Other long term (current) drug therapy; L40.8 Other psoriasis; M72.2 Plantar fascial fibromatosis; J30.9 Allergic rhinitis, unspecified
CPT/HCPCS: 36415; 80053; 85025

== ENCOUNTER → 2021-09-06 13:23 | Outpatient (CLI) | payer OTHER, SELFPAY ==
[2021-09-06 15:20] LABS: Absolute Lymphocyte Count 1.22 X10^3/uL (0.83-4.51); Absolute Neutrophil Count 9.2 X10^3/uL (2.0-7.7); Basophil# 0.06 X10^3/uL; Basophil% 0.5 % (0-1); Eosinophil# 0.01 X10^3/uL; Eosinophils% 0.1 % (0-5); Hematocrit 46.7 % (40-54); Hemoglobin 16.1 g/dL (13.0-16.5); Lymphocyte # 1.22 X10^3/ul (0.83-4.51); Lymphocyte % 10.7 % (19-41); Mean Corp Hgb Conc 34.5 g/dL (32-36); Mean Corpuscular Hgb 32.7 pg (27.0-32.0); Mean Corpuscular Volume 94.7 fL (80-94); Mean Platelet Vol. 10.4 fl (6.2-12.0); NRBC Flagged by Analyzer 0 % (0-5); Neutrophil # 9.18 X10^3/uL (2.7-7.7); Platelet Count 281 K/mm3 (150-450); RBC Distribution Width CV 12.8 % (11.6-14.6); RBC Distribution Width SD 44.5 fl (35.1-43.9); Red Blood Count 4.93 M/mm3 (4.6-6.2); White Blood Count 11.4 K/mm3 (4.4-11.0)
[2021-09-06 15:39] LABS: ALB/GLOB Ratio 0.9 RATIO (0.9-2.4); AST(SGOT) 21 U/L (15-37); Alanine Aminotransfer ALT/SGPT 30 U/L (16-61); Albumin, Serum 3.6 g/dL (3.2-5.0); Alkaline Phosphatase 106 U/L (45-117); Anion Gap 6 (5-15); BUN 15 mg/dL (7-18); BUN/Creat Ratio 15.9 RATIO (10-20); Calcium,Total 9.4 mg/dL (8.5-10.1); Chloride 111 mmol/L (98-107); Creatinine, Serum 0.95 mg/dL (0.70-1.30); EST Glomerular Filtration Rate 88 mL/min (>60); Est Glom Filt Rate - Afr Amer 107 mL/min (>60); Glucose 116 mg/dL (74-106); Potassium 4.2 mmol/L (3.5-5.1); Protein, Total 7.6 g/dL (6.4-8.2); Sodium Level 141 mmol/L (136-145)
== END ==
PROVIDERS: PCP Internal Medicine; Referring Provider Internal Medicine Rheumatology; Visit Provider Internal Medicine Rheumatology
DX: L40.59 Other psoriatic arthropathy (principal); Z79.899 Other long term (current) drug therapy; L40.8 Other psoriasis; M72.2 Plantar fascial fibromatosis; J30.9 Allergic rhinitis, unspecified
CPT/HCPCS: 36415; 80053; 85025

== ENCOUNTER 2021-11-14 15:57 | Outpatient (CLI) | payer OTHER, SELFPAY ==
[2021-11-14 17:49] LABS: Absolute Lymphocyte Count 1.82 X10^3/uL (0.83-4.51); Absolute Neutrophil Count 5.4 X10^3/uL (2.0-7.7); Basophil# 0.07 X10^3/uL; Basophil% 0.8 % (0-1); Eosinophil# 0.32 X10^3/uL; Eosinophils% 3.7 % (0-5); Hematocrit 46.2 % (40-54); Hemoglobin 16.2 g/dL (13.0-16.5); Lymphocyte # 1.82 X10^3/ul (0.83-4.51); Lymphocyte % 21.3 % (19-41); Mean Corp Hgb Conc 35.1 g/dL (32-36); Mean Corpuscular Hgb 33.4 pg (27.0-32.0); Mean Corpuscular Volume 95.3 fL (80-94); Mean Platelet Vol. 10.2 fl (6.2-12.0); Monocyte# 0.95 X10^3/uL; Monocyte% 11.1 % (0-10); NRBC Flagged by Analyzer 0 % (0-5); Neutrophil # 5.35 X10^3/uL (2.7-7.7); Neutrophil % 62.6 % (47-70); Platelet Count 272 K/mm3 (150-450); RBC Distribution Width CV 13.1 % (11.6-14.6); RBC Distribution Width SD 45.1 fl (35.1-43.9); Red Blood Count 4.85 M/mm3 (4.6-6.2); White Blood Count 8.6 K/mm3 (4.4-11.0)
[2021-11-14 18:48] LABS: ALB/GLOB Ratio 0.9 RATIO (0.9-2.4); AST(SGOT) 24 U/L (15-37); Alanine Aminotransfer ALT/SGPT 44 U/L (16-61); Albumin, Serum 3.6 g/dL (3.2-5.0); Alkaline Phosphatase 95 U/L (45-117); Anion Gap 5 (5-15); BUN 12 mg/dL (7-18); BUN/Creat Ratio 11.8 RATIO (10-20); Calcium,Total 8.9 mg/dL (8.5-10.1); Chloride 105 mmol/L (98-107); Creatinine, Serum 1.02 mg/dL (0.70-1.30); EST Glomerular Filtration Rate 81 mL/min (>60); Est Glom Filt Rate - Afr Amer 98 mL/min (>60); Globulin 3.9 g/dL (2.2-4.2); Glucose 92 mg/dL (74-106); Potassium 3.8 mmol/L (3.5-5.1); Protein, Total 7.5 g/dL (6.4-8.2); Sodium Level 139 mmol/L (136-145)
== END 2021-11-14 23:59 | disposition home or self-care (01) ==
LOC: MTLAB 15:59
PROVIDERS: PCP Internal Medicine; Referring Provider Internal Medicine Rheumatology; Visit Provider Internal Medicine Rheumatology
DX: L40.59 Other psoriatic arthropathy (principal); Z79.899 Other long term (current) drug therapy; L40.8 Other psoriasis; M72.2 Plantar fascial fibromatosis; J30.9 Allergic rhinitis, unspecified
CPT/HCPCS: 36415; 80053; 85025

== ENCOUNTER → 2022-02-21 | Outpatient (CLI) | payer OTHER, SELFPAY ==
[2022-02-21 10:07] LABS: Absolute Lymphocyte Count 2.29 X10^3/uL (0.83-4.51); Absolute Neutrophil Count 5.9 X10^3/uL (2.0-7.7); Eosinophil# 0.43 X10^3/uL; Eosinophils% 4.1 % (0-5); Hematocrit 46.4 % (40-54); Hemoglobin 15.8 g/dL (13.0-16.5); Lymphocyte # 2.29 X10^3/ul (0.83-4.51); Lymphocyte % 22.1 % (19-41); Mean Corp Hgb Conc 34.1 g/dL (32-36); Mean Corpuscular Hgb 32.8 pg (27.0-32.0); Mean Corpuscular Volume 96.3 fL (80-94); Mean Platelet Vol. 10.5 fl (6.2-12.0); Monocyte# 1.52 X10^3/uL; Monocyte% 14.6 % (0-10); NRBC Flagged by Analyzer 0 % (0-5); Neutrophil # 5.92 X10^3/uL (2.7-7.7); POSITIVE DIFFERENTIAL YES; Platelet Count 280 K/mm3 (150-450); RBC Distribution Width CV 13.2 % (11.6-14.6); RBC Distribution Width SD 46.4 fl (35.1-43.9); Red Blood Count 4.82 M/mm3 (4.6-6.2); White Blood Count 10.4 K/mm3 (4.4-11.0)
[2022-02-21 10:13] LABS: Differential Indicated SCAN CRITERIA MET
[2022-02-21 10:26] LABS: AST(SGOT) 24 U/L (15-37); Alanine Aminotransfer ALT/SGPT 50 U/L (16-61); Albumin, Serum 3.8 g/dL (3.2-5.0); Alkaline Phosphatase 83 U/L (45-117); Anion Gap 8 (5-15); BUN 21 mg/dL (7-18); BUN/Creat Ratio 16.8 RATIO (10-20); Calcium,Total 9.2 mg/dL (8.5-10.1); Chloride 104 mmol/L (98-107); Creatinine, Serum 1.25 mg/dL (0.70-1.30); EST Glomerular Filtration Rate 64 mL/min (>60); Est Glom Filt Rate - Afr Amer 77 mL/min (>60); Globulin 3.8 g/dL (2.2-4.2); Glucose 92 mg/dL (74-106); Potassium 3.8 mmol/L (3.5-5.1); Protein, Total 7.6 g/dL (6.4-8.2); Sodium Level 138 mmol/L (136-145)
[2022-02-21 10:30] LABS: Differential Comment SCANNED
[2022-02-24 13:31] LABS: Pathologist Review Reviewed
== END | disposition home or self-care (01) ==
LOC: MTLAB 07:38
PROVIDERS: PCP Internal Medicine; Referring Provider Internal Medicine Rheumatology; Visit Provider Internal Medicine Rheumatology
DX: L40.59 Other psoriatic arthropathy (principal); Z79.899 Other long term (current) drug therapy; L40.8 Other psoriasis; M72.2 Plantar fascial fibromatosis; J30.9 Allergic rhinitis, unspecified
CPT/HCPCS: 36415; 80053; 85025

== ENCOUNTER → 2022-04-11 | Outpatient (CLI) | payer OTHER, SELFPAY ==
[2022-04-11 14:53] LABS: Erythrocyte Sedimentation Rate 3 mm/hr (0-20)
[2022-04-11 14:55] LABS: Absolute Neutrophil Count 4.7 X10^3/uL (2.0-7.7); Basophil# 0.06 X10^3/uL; Basophil% 0.8 % (0-1); Eosinophils% 2.6 % (0-5); Hematocrit 45.3 % (40-54); Hemoglobin 15.5 g/dL (13.0-16.5); Lymphocyte % 20.8 % (19-41); Mean Corp Hgb Conc 34.2 g/dL (32-36); Mean Corpuscular Hgb 32.8 pg (27.0-32.0); Mean Corpuscular Volume 95.8 fL (80-94); Mean Platelet Vol. 10.3 fl (6.2-12.0); Monocyte# 1.08 X10^3/uL; Monocyte% 14.1 % (0-10); NRBC Flagged by Analyzer 0 % (0-5); Neutrophil # 4.67 X10^3/uL (2.7-7.7); Neutrophil % 60.8 % (47-70); Platelet Count 276 K/mm3 (150-450); RBC Distribution Width CV 13.2 % (11.6-14.6); RBC Distribution Width SD 45.4 fl (35.1-43.9); Red Blood Count 4.73 M/mm3 (4.6-6.2); White Blood Count 7.7 K/mm3 (4.4-11.0)
[2022-04-11 15:13] LABS: CRP < 2.90 mg/L (0.0-3.0)
== END | disposition home or self-care (01) ==
LOC: MTLAB 13:24
PROVIDERS: PCP Internal Medicine; Referring Provider Internal Medicine Pulmonary Disease; Visit Provider Internal Medicine Pulmonary Disease
DX: J45.50 Severe persistent asthma, uncomplicated (principal)
CPT/HCPCS: 36415; 85025; 85652; 86140

== ENCOUNTER → 2022-05-16 | Outpatient (CLI) | payer OTHER, SELFPAY ==
[2022-05-16 15:01] LABS: Absolute Lymphocyte Count 1.55 X10^3/uL (0.83-4.51); Absolute Neutrophil Count 6.3 X10^3/uL (2.0-7.7); Basophil# 0.06 X10^3/uL; Basophil% 0.6 % (0-1); Eosinophils% 2.1 % (0-5); Hematocrit 45.9 % (40-54); Lymphocyte # 1.55 X10^3/ul (0.83-4.51); Lymphocyte % 16.5 % (19-41); Mean Corp Hgb Conc 34.9 g/dL (32-36); Mean Corpuscular Hgb 33.7 pg (27.0-32.0); Mean Corpuscular Volume 96.6 fL (80-94); Mean Platelet Vol. 10.7 fl (6.2-12.0); Monocyte# 1.26 X10^3/uL; Monocyte% 13.4 % (0-10); NRBC Flagged by Analyzer 0 % (0-5); Neutrophil # 6.28 X10^3/uL (2.7-7.7); Neutrophil % 66.7 % (47-70); Platelet Count 252 K/mm3 (150-450); RBC Distribution Width CV 13.4 % (11.6-14.6); RBC Distribution Width SD 47.2 fl (35.1-43.9); Red Blood Count 4.75 M/mm3 (4.6-6.2); White Blood Count 9.4 K/mm3 (4.4-11.0)
[2022-05-16 15:19] LABS: AST(SGOT) 18 U/L (15-37); Alanine Aminotransfer ALT/SGPT 35 U/L (16-61); Albumin, Serum 3.7 g/dL (3.2-5.0); Alkaline Phosphatase 93 U/L (45-117); Anion Gap 5 (5-15); BUN 14 mg/dL (7-18); BUN/Creat Ratio 14.2 RATIO (10-20); Calcium,Total 9.2 mg/dL (8.5-10.1); Chloride 110 mmol/L (98-107); Creatinine, Serum 0.99 mg/dL (0.70-1.30); EST Glomerular Filtration Rate 84 mL/min (>60); Est Glom Filt Rate - Afr Amer 101 mL/min (>60); Globulin 3.6 g/dL (2.2-4.2); Glucose 91 mg/dL (74-106); Potassium 3.9 mmol/L (3.5-5.1); Protein, Total 7.3 g/dL (6.4-8.2); Sodium Level 141 mmol/L (136-145)
== END | disposition home or self-care (01) ==
LOC: MTLAB 13:14
PROVIDERS: PCP Internal Medicine; Referring Provider Internal Medicine Rheumatology; Visit Provider Internal Medicine Rheumatology
DX: L40.59 Other psoriatic arthropathy (principal); Z79.899 Other long term (current) drug therapy; L40.8 Other psoriasis; M72.2 Plantar fascial fibromatosis; J30.9 Allergic rhinitis, unspecified
CPT/HCPCS: 36415; 80053; 85025

== ENCOUNTER 2022-08-06 11:19 | Outpatient (CLI) | payer OTHER, SELFPAY ==
[2022-08-07 14:09] LABS: Cytoplasmic Ab (C-ANCA) <1:20 titer (Neg:<1:20)
[2022-08-07 15:20] LABS: Angiotensin Convert Enzyme 26 U/L (14-82); Perinuclear Ab (P-ANCA) <1:20 titer (Neg:<1:20)
== END 2022-08-06 23:59 | disposition home or self-care (01) ==
LOC: MTLAB 11:20
PROVIDERS: PCP Internal Medicine; Referring Provider Internal Medicine Pulmonary Disease; Visit Provider Internal Medicine Pulmonary Disease
DX: J30.9 Allergic rhinitis, unspecified (principal)
CPT/HCPCS: 36415; 82164; 86256

== ENCOUNTER 2022-08-15 11:15 | Outpatient (CLI) | payer OTHER, SELFPAY ==
[2022-08-15 14:56] LABS: Absolute Lymphocyte Count 1.27 X10^3/uL (0.83-4.51); Basophil# 0.07 X10^3/uL; Basophil% 0.9 % (0-1); Eosinophil# 0.38 X10^3/uL; Eosinophils% 4.9 % (0-5); Hematocrit 45.1 % (40-54); Hemoglobin 15.1 g/dL (13.0-16.5); Lymphocyte # 1.27 X10^3/ul (0.83-4.51); Lymphocyte % 16.3 % (19-41); Mean Corp Hgb Conc 33.5 g/dL (32-36); Mean Corpuscular Hgb 32.1 pg (27.0-32.0); Mean Corpuscular Volume 95.8 fL (80-94); Mean Platelet Vol. 10.4 fl (6.2-12.0); Monocyte# 1.06 X10^3/uL; Monocyte% 13.6 % (0-10); NRBC Flagged by Analyzer 0 % (0-5); Neutrophil # 4.96 X10^3/uL (2.7-7.7); Neutrophil % 63.5 % (47-70); Platelet Count 267 K/mm3 (150-450); RBC Distribution Width CV 13.6 % (11.6-14.6); RBC Distribution Width SD 47.3 fl (35.1-43.9); Red Blood Count 4.71 M/mm3 (4.6-6.2); White Blood Count 7.8 K/mm3 (4.4-11.0)
[2022-08-15 15:06] LABS: ALB/GLOB Ratio 1.3 RATIO (0.9-2.4); AST(SGOT) 23 U/L (15-37); Alanine Aminotransfer ALT/SGPT 32 U/L (16-61); Albumin, Serum 3.8 g/dL (3.2-5.0); Alkaline Phosphatase 100 U/L (45-117); Anion Gap 5 (5-15); BUN 12 mg/dL (7-18); BUN/Creat Ratio 13.2 RATIO (10-20); Chloride 109 mmol/L (98-107); Creatinine, Serum 0.91 mg/dL (0.70-1.30); EST Glomerular Filtration Rate 92 mL/min (>60); Est Glom Filt Rate - Afr Amer 111 mL/min (>60); Glucose 104 mg/dL (74-106); Potassium 4.2 mmol/L (3.5-5.1); Protein, Total 6.8 g/dL (6.4-8.2); Sodium Level 141 mmol/L (136-145)
== END 2022-08-15 23:59 | disposition home or self-care (01) ==
LOC: MTLAB 11:16
PROVIDERS: PCP Internal Medicine; Referring Provider Internal Medicine Rheumatology; Visit Provider Internal Medicine Rheumatology
DX: L40.59 Other psoriatic arthropathy (principal); Z79.899 Other long term (current) drug therapy; L40.8 Other psoriasis; M72.2 Plantar fascial fibromatosis; J30.9 Allergic rhinitis, unspecified
CPT/HCPCS: 36415; 80053; 85025

== ENCOUNTER 2022-08-19 13:54 | Outpatient (CLI) | payer OTHER, SELFPAY ==
--- NOTE | 2022-08-19 14:00 | ECHOD_ITS ---
Reason For Study: Sleep apnea, fatigue Procedure This was a 2D Doppler, Color Flow transthoracic echocardiogram. Exam performed in department. Left Ventricle Normal LV size. Left ventricular systolic function is normal. The estimated ejection fraction is 60 %. The global longitudinal strain = -20 % (normal). No evidence for diastolic dysfunction. No regional wall motion abnormalities noted. Right Ventricle Normal RV size. Normal systolic function. Atria Normal left atrium. Normal right atrium. No doppler evidence for ASD. Mitral Valve There is no mitral annular calcification. Normal mitral valve. Trivial mitral valve insufficiency. Tricuspid Valve Normal tricuspid valve. Trivial tricuspid valve insufficiency. Unable to estimate RV systolic pressure due to insufficient tricuspid regurgitant envelope. Aortic Valve Trisinus/trileaflet aortic valve. Normal aortic valve. Pulmonic Valve The pulmonic valve is not well visualized. Trivial pulmonic valve insufficiency. Great Vessels Normal sized aortic root. Pericardium/Pleural No pericardial effusion. MMode/2D Measurements & Calculations LVIDd: 4.1 cm IVSd: 0.88 cm Ao root diam: 2.9 cm LVIDs: 1.9 cm LVPWd: 0.98 cm RVDd: 3.4 cm FS: 53.7 % LAV(MOD-bp): 35.1 ml LVAd ap4: 28.5 cm2 LVAd ap2: 29.0 cm2 LAV(MOD-bp) Indexed: 17.3 ml/m2 LVLd ap4: 8.3 cm LVLd ap2: 9.1 cm LAV(MOD-sp2): 39.3 ml EDV(MOD-sp4): 82.1 ml EDV(MOD-sp2): 78.4 ml LAV(MOD-sp4): 29.6 ml EDV(sp4-el): 83.3 ml EDV(sp2-el): 78.3 ml LVAs ap4: 16.6 cm2 LVAs ap2: 16.3 cm2 LVLs ap4: 7.0 cm LVLs ap2: 7.7 cm ESV(MOD-sp4): 34.4 ml ESV(MOD-sp2): 30.5 ml ESV(sp4-el): 33.3 ml ESV(sp2-el): 29.2 ml EF(MOD-sp4): 58.1 % EF(MOD-sp2): 61.1 % EF(sp4-el): 60.0 % SV(MOD-sp4): 47.7 ml SV(MOD-sp2): 47.9 ml SV(sp4-el): 50.0 ml LA dimension(2D): 3.9 cm LA A4 area: 13.4 cm2 RA A4 area: 10.7 cm2 Doppler Measurements & Calculations MV E max junito: 52.6 cm/sec Lat Peak E' Junito: 8.5 cm/sec Med Peak E' Junito: 7.9 cm/sec MV A max junito: 74.9 cm/sec E/E' lat: 6.2 E/E' med: 6.7 MV E/A: 0.70 Ao V2 max: 140.2 cm/sec LV V1 max: 96.8 cm/sec PA V2 max: 107.7 cm/sec Ao max P.9 mmHg LV V1 max P.8 mmHg ECHO/Echo Complete Interpretation Summary Left ventricular systolic function is normal. The estimated ejection fraction is 60 %. The global longitudinal strain = -20 % (normal). Trivial mitral valve insufficiency. Trivial tricuspid valve insufficiency. Trivial pulmonic valve insufficiency. Unable to estimate RV systolic pressure due to insufficient tricuspid regurgita nt envelope. No evidence for diastolic dysfunction. Ordering Physician: Bam Linda V Referring Physician: Bam Linda V Performed By: Yohana Baig RDCS
--- NOTE | 2022-08-19 14:01 | CT_ITS ---
STUDY: CT CHEST WITHOUT CONTRAST REASON FOR EXAM: Male, 56 years old. ARTHRITIS RADIATION DOSAGE (If Supplied By Facility): CTDIvol = ( 14.59 ) mGy, DLP = ( 423.68 ) mGycm TECHNIQUE: Transaxial imaging was performed without the administration of intravenous contrast material. Multiplanar coronal and sagittal images were reformatted. Individualized dose optimization techniques were used for this CT. COMPARISON: No relevant priors. FINDINGS: CHEST There are small benign appearing bilateral axillary lymph nodes. The lungs are normal. Azygos lobe. This is a normal variant. There is no demonstrated pleural abnormality. Normal heart and pericardium. There are multiple small lymph nodes within the mediastinum, which are normal in size and morphology most compatible with reactive lymph hyperplasia. Normal hilar regions. Normal unenhanced pulmonary arteries. Normal aorta arch and descending thoracic aorta. Normal osseous structures. There is no demonstrated abnormality of the visualized upper abdomen. CT/Chest without Contrast IMPRESSION: No acute abnormality is seen. Electronically Signed: Reji Guillen MD at 15:33 EST ,
== END 2022-08-19 23:59 | disposition home or self-care (01) ==
PROVIDERS: PCP Internal Medicine; Referring Provider Internal Medicine Pulmonary Disease; Visit Provider Internal Medicine Pulmonary Disease
DX: J45.40 Moderate persistent asthma, uncomplicated (principal); L40.52 Psoriatic arthritis mutilans
CPT/HCPCS: 71250; 93306

== ENCOUNTER 2022-10-13 17:58 | Emergency (ER) | payer OTHER, BC, SELFPAY ==
[2022-10-13 17:59] VITALS: BP 130/77; PULSE 84; RESP 18; TEMP 36.1; O2SAT 95; BMI 28.3
--- NOTE | 2022-10-13 20:00 | EDS_ITS ---
HPI History of Present Illness Chief Complaint: Laceration Narrative Narrative: 56-year-old male who denies significant past medical history, [id number], presents with laceration to his left forearm that he sustained approximately 5 hours ago. He states he was at work, using a safety knife, trying to open a bottle. As he was doing so, the bottle broke, and the safety knife lacerated his left forearm. He denies other injury. No significant past medical history. He put Band-Aids on his laceration and continue to work, he presents to the emergency department for closure of his laceration as he states it was still seeping a small amount of blood. He is unsure of his last tetanus immunization but thinks it may have been in the last 10 years but is not sure. [facility] Medical History Acute pharyngitis, unspecified Arthritis Knee pain URI (upper respiratory infection) Home Medications folic acid 1 mg tablet 1 mg PO DAILY 07/31/20 [History Last Taken Unknown] fluticasone furoate 200 mcg-vilanterol 25 mcg/dose inhalation powder inhalation 11/16/20 [History Last Taken Unknown] methotrexate sodium 2.5 mg tablet mg PO 11/16/20 [History Last Taken Unknown] pramipexole 0.25 mg tablet 0.25 mg PO QHS 08/28/22 [History Last Taken Unknown] Allergy/AdvReac Type Severity Reaction Status Date / Time bee venom protein (honey bee) Allergy Mild unknown Verified 10/13/22 17:59 Latex, Natural Rubber Allergy Mild unknown Verified 10/13/22 17:59 Social History Smoking Status: Never smoker ROS ROS ED ROS Narrative Constitutional: No fever, no chills. HEENT: No sore throat. No neck pain. No loss of vision. No rhinorrhea. Cardiovascular: No chest pain. No palpitations. No pedal edema. Respiratory: No cough, no shortness of breath. Abdominal: No abdominal pain. No nausea. No vomiting. Genitourinary: No dysuria. No hematuria. Musculoskeletal: No myalgias. No arthralgias. Neurologic: No headaches. No dizziness. No lightheadedness. Skin: No rash. No change in color. Laceration to left forearm, distal Psychiatric: No depression. No anxiety. EXAM Physical Exam Narrative Exam Narrative: Afebrile. Vital signs noted. HEENT: Normocephalic. Atraumatic. PERRL, EOMI. Neck soft and supple. No point tenderness or step off. Cardiovascular: Regular rate and rhythm. No murmurs, rubs, or gallops appreciated. Respiratory: No tachypnea. Lungs clear to auscultation bilaterally. Gastrointestinal: Abdomen soft, nontender, with normoactive bowel sounds. No rebound or guarding. Neurological: Awake. Alert. Nonfocal, nonlateralizing. Skin: No rash. Normal color. No pallor. 3 cm laceration, more linear in nature on distal radius area. Musculoskeletal: No pedal edema. Full range of motion extremities. No tendon rupture through full range of motion of wrist or fifth digit flexion and extension. He may have a small laceration in the muscle, but no active bleeding. Const Vital Signs: 10/13/22 17:59 Temperature 97 F L Temperature Source Temporal Pulse Rate 84 Respiratory Rate 18 Blood Pressure 130/77 H Blood Pressure Mean 94 Pulse Ox 95 Oxygen Delivery Method Room Air MDM MDM MDM Narrative Medical decision making narrative: As this is a work-related injury, he will follow-up with the [facility]. He was told of the risk of infection and scarring and acknowledges an understanding. He was immunized with Boostrix 0.5 mL intramuscularly. Wound closure will be performed. See procedure note for detail. I do not feel x-ray is indicated to look for foreign body. Procedure note: Lidocaine 1% was used as local anesthetic. Area was irrigated with chlorhexidine normal saline a moderate amount. There is no evidence of foreign body, no apparent tendon involvement. Wound edges approximated with 8 simple interrupted sutures using five-point 0 nylon. Patient tolerated procedure well. Patient will have his sutures removed in 7 to 10 days. He was told to look for signs of infection including redness, drainage of pus from the wound. He will return to work tomorrow and keep the area clean, dry, and covered. I feel he be discharged safely home with follow-up. Return instructions to the emergency department were reviewed. Disposition is discharged home in stable condition. Discharge Plan Triage Chief Complaint: Laceration ED Provider: José Encinas Dx/Rx/DC Orders Clinical Impression: Laceration of forearm, left Instructions: ED Laceration Extremity Prescriptions: No Action folic acid 1 mg tablet 1 mg PO DAILY fluticasone furoate-vilanterol 200-25 mcg/dose blister with device INHALATION methotrexate sodium 2.5 mg tablet PO pramipexole 0.25 mg tablet 0.25 mg PO QHS Primary Care Provider: Kaden Diamond Referrals: Kaden Diamond MD [Primary Care Provider] - [facility] [Non-Staff] - 10 Day for suture removal Disposition Disposition: Home, Self Care
[2022-10-13] MEDS: Diphth,Pertuss(Acell),Tet Vac 0.5 ML Vial IM (20:09)
[2022-10-13] MEDS: Lidocaine 1% (20 ml mdv) 20 ML Vial INFILT (21:04)
== END 2022-10-13 21:05 | disposition home or self-care (01) ==
PROVIDERS: Emergency Provider Emergency Medicine; PCP Internal Medicine; Visit Provider Emergency Medicine
DX: S51.812A Laceration without foreign body of left forearm, initial encounter (principal); W26.0XXA Contact with knife, initial encounter; Y93.89 Activity, other specified; Y99.0 Civilian activity done for income or pay; Z23 Encounter for immunization
CPT/HCPCS: 12002; 90471; 90715; 99283

== ENCOUNTER → 2022-11-05 | Outpatient (CLI) | payer BC, SELFPAY | END | disposition home or self-care (01) | LOC: LABSPEC 12:47 | PROVIDERS: PCP Internal Medicine; Referring Provider Physician Assistant; Visit Provider Physician Assistant | DX: S51.812A Laceration without foreign body of left forearm, initial encounter (principal) | CPT/HCPCS: 87070; 87205 ==

== ENCOUNTER → 2022-11-12 | Outpatient (CLI) | payer BC, SELFPAY ==
[2022-11-12 15:09] LABS: Absolute Lymphocyte Count 1.55 X10^3/uL (0.83-4.51); Absolute Neutrophil Count 4.2 X10^3/uL (2.0-7.7); Basophil# 0.06 X10^3/uL; Basophil% 0.8 % (0-1); Eosinophil# 0.49 X10^3/uL; Eosinophils% 6.8 % (0-5); Hematocrit 45.6 % (40-54); Hemoglobin 15.4 g/dL (13.0-16.5); Lymphocyte # 1.55 X10^3/ul (0.83-4.51); Lymphocyte % 21.6 % (19-41); Mean Corp Hgb Conc 33.8 g/dL (32-36); Mean Corpuscular Hgb 32.6 pg (27.0-32.0); Mean Corpuscular Volume 96.6 fL (80-94); Mean Platelet Vol. 10.6 fl (6.2-12.0); Monocyte# 0.86 X10^3/uL; NRBC Flagged by Analyzer 0 % (0-5); Neutrophil % 58.5 % (47-70); Platelet Count 261 K/mm3 (150-450); RBC Distribution Width SD 46.7 fl (35.1-43.9); Red Blood Count 4.72 M/mm3 (4.6-6.2); White Blood Count 7.2 K/mm3 (4.4-11.0)
[2022-11-12 15:54] LABS: BUN 18 mg/dL (7-18); Creatinine, Serum 1.02 mg/dL (0.70-1.30); Glucose 96 mg/dL (74-106)
[2022-11-12 15:55] LABS: AST(SGOT) 26 U/L (15-37); Alanine Aminotransfer ALT/SGPT 35 U/L (16-61); Albumin, Serum 3.7 g/dL (3.2-5.0); Alkaline Phosphatase 82 U/L (45-117); Anion Gap 7 (5-15); BUN/Creat Ratio 17.6 RATIO (10-20); Calcium,Total 9.3 mg/dL (8.5-10.1); Chloride 109 mmol/L (98-107); EST Glomerular Filtration Rate 81 mL/min (>60); Est Glom Filt Rate - Afr Amer 98 mL/min (>60); Globulin 3.6 g/dL (2.2-4.2); Protein, Total 7.3 g/dL (6.4-8.2); Sodium Level 142 mmol/L (136-145)
== END | disposition home or self-care (01) ==
LOC: MTLAB 11:07
PROVIDERS: PCP Internal Medicine; Visit Provider Internal Medicine Rheumatology
DX: L40.59 Other psoriatic arthropathy (principal); Z79.899 Other long term (current) drug therapy; L40.8 Other psoriasis; M72.2 Plantar fascial fibromatosis; J30.9 Allergic rhinitis, unspecified
CPT/HCPCS: 36415; 80053; 85025

== ENCOUNTER → 2023-01-09 | Outpatient (CLI) | payer BC, SELFPAY ==
--- NOTE | 2023-01-09 13:15 | CT_ITS ---
STUDY: CT MAXILLOFACIAL SINUSES REASON FOR EXAM: Male, 57 years old. SINUSITIS RADIATION DOSAGE (If Supplied By Facility): CTDIvol = ( 28.14 ) mGy, DLP = ( 756.74 ) mGycm TECHNIQUE: The patient was scanned in a multi detector CT scanner. High resolution axial imaging was performed without the administration of intravenous contrast material. Sagittal and coronal images were reconstructed. Individualized dose optimization techniques were used for this CT. COMPARISON: None. FINDINGS: FRONTAL SINUSES: Normal aeration, without mucosal inflammatory disease. ETHMOIDAL SINUSES: Normal aeration, without mucosal inflammatory disease. MAXILLARY SINUSES: Minimal degree mucosal thickening along the medial wall of the right maxillary sinus. 7.4 mm retention cyst or pneumonia. Assessment SPHENOIDAL SINUSES: Normal aeration, without mucosal inflammatory disease. There is patency of the bilateral maxillary infundibuli with normal uncinate processes, ethmoid bullae, and hiatus semilunaris. Normal bilateral middle turbinates. Normal bilateral inferior turbinates. There is a right sided nasal septal deviation, but without a nasal septal spur. There is patency of the bilateral nasal airways. The visualized osseous structures are normal. The visualized bilateral orbital contents are normal. CT/Sinus/Facial Bone IMPRESSION: Minimal maxillary sinus mucosal thickening. Nasal septum deviation to the right sided midline. Electronically Signed: Reji Guillen MD at 15:21 EDT ,
== END | disposition home or self-care (01) ==
PROVIDERS: PCP Internal Medicine; Referring Provider Otolaryngology; Visit Provider Otolaryngology
DX: J32.8 Other chronic sinusitis (principal)
CPT/HCPCS: 70486

== ENCOUNTER → 2023-02-12 | Outpatient (CLI) | payer BC, SELFPAY ==
[2023-02-12 15:10] LABS: Absolute Lymphocyte Count 1.71 X10^3/uL (0.83-4.51); Absolute Neutrophil Count 4.3 X10^3/uL (2.0-7.7); Basophil# 0.07 X10^3/uL; Eosinophil# 0.22 X10^3/uL; Hematocrit 46.3 % (40-54); Hemoglobin 15.7 g/dL (13.0-16.5); Lymphocyte # 1.71 X10^3/ul (0.83-4.51); Lymphocyte % 23.7 % (19-41); Mean Corp Hgb Conc 33.9 g/dL (32-36); Mean Corpuscular Hgb 32.7 pg (27.0-32.0); Mean Corpuscular Volume 96.5 fL (80-94); Mean Platelet Vol. 10.5 fl (6.2-12.0); Monocyte% 12.4 % (0-10); NRBC Flagged by Analyzer 0 % (0-5); Neutrophil # 4.31 X10^3/uL (2.7-7.7); Neutrophil % 59.6 % (47-70); Platelet Count 234 K/mm3 (150-450); RBC Distribution Width CV 13.5 % (11.6-14.6); RBC Distribution Width SD 47.7 fl (35.1-43.9); White Blood Count 7.2 K/mm3 (4.4-11.0)
[2023-02-12 15:39] LABS: ALB/GLOB Ratio 1.1 RATIO (0.9-2.4); AST(SGOT) 28 U/L (15-37); Alanine Aminotransfer ALT/SGPT 41 U/L (16-61); Albumin, Serum 3.7 g/dL (3.2-5.0); Alkaline Phosphatase 97 U/L (45-117); Anion Gap 4 (5-15); BUN 18 mg/dL (7-18); Calcium,Total 8.9 mg/dL (8.5-10.1); Chloride 110 mmol/L (98-107); Creatinine, Serum 0.94 mg/dL (0.70-1.30); EST Glomerular Filtration Rate 88 mL/min (>60); Est Glom Filt Rate - Afr Amer 106 mL/min (>60); Globulin 3.5 g/dL (2.2-4.2); Glucose 92 mg/dL (74-106); Potassium 4.2 mmol/L (3.5-5.1); Protein, Total 7.2 g/dL (6.4-8.2); Sodium Level 141 mmol/L (136-145)
== END | disposition home or self-care (01) ==
LOC: MTLAB 12:43
PROVIDERS: PCP Internal Medicine; Referring Provider Internal Medicine Rheumatology; Visit Provider Internal Medicine Rheumatology
DX: L40.59 Other psoriatic arthropathy (principal); Z79.899 Other long term (current) drug therapy
CPT/HCPCS: 36415; 80053; 85025

== ENCOUNTER → 2023-05-15 | Outpatient (CLI) | payer BC, SELFPAY ==
[2023-05-15 15:21] LABS: Absolute Lymphocyte Count 1.49 X10^3/uL (0.83-4.51); Basophil# 0.09 X10^3/uL; Basophil% 1.1 % (0-1); Eosinophil# 0.29 X10^3/uL; Eosinophils% 3.6 % (0-5); Hematocrit 46.2 % (40-54); Hemoglobin 15.7 g/dL (13.0-16.5); Lymphocyte # 1.49 X10^3/ul (0.83-4.51); Lymphocyte % 18.3 % (19-41); Mean Corpuscular Hgb 32.6 pg (27.0-32.0); Mean Platelet Vol. 10.7 fl (6.2-12.0); Monocyte# 1.19 X10^3/uL; Monocyte% 14.6 % (0-10); NRBC Flagged by Analyzer 0 % (0-5); Neutrophil # 4.98 X10^3/uL (2.7-7.7); Neutrophil % 61.2 % (47-70); Platelet Count 252 K/mm3 (150-450); RBC Distribution Width CV 13.4 % (11.6-14.6); RBC Distribution Width SD 47.3 fl (35.1-43.9); Red Blood Count 4.81 M/mm3 (4.6-6.2); White Blood Count 8.1 K/mm3 (4.4-11.0)
[2023-05-15 15:31] LABS: ALB/GLOB Ratio 1.1 RATIO (0.9-2.4); AST(SGOT) 21 U/L (15-37); Alanine Aminotransfer ALT/SGPT 35 U/L (16-61); Albumin, Serum 3.9 g/dL (3.2-5.0); Alkaline Phosphatase 102 U/L (45-117); Anion Gap 5 (5-15); BUN 16 mg/dL (7-18); Calcium,Total 8.8 mg/dL (8.5-10.1); Chloride 108 mmol/L (98-107); EST Glomerular Filtration Rate 82 mL/min (>60); Est Glom Filt Rate - Afr Amer 100 mL/min (>60); Globulin 3.4 g/dL (2.2-4.2); Glucose 90 mg/dL (74-106); Potassium 3.8 mmol/L (3.5-5.1); Protein, Total 7.3 g/dL (6.4-8.2); Sodium Level 139 mmol/L (136-145)
== END | disposition home or self-care (01) ==
LOC: MTLAB 11:42
PROVIDERS: PCP Internal Medicine; Referring Provider Internal Medicine Rheumatology; Visit Provider Internal Medicine Rheumatology
DX: L40.59 Other psoriatic arthropathy (principal); Z79.899 Other long term (current) drug therapy; L40.8 Other psoriasis
CPT/HCPCS: 36415; 80053; 85025

== ENCOUNTER → 2023-08-07 | Outpatient (CLI) | payer BC, SELFPAY ==
[2023-08-07 15:40] LABS: Absolute Lymphocyte Count 1.62 X10^3/uL (0.83-4.51); Basophil# 0.06 X10^3/uL; Basophil% 0.8 % (0-1); Eosinophil# 0.22 X10^3/uL; Eosinophils% 2.8 % (0-5); Hematocrit 45.5 % (40-54); Hemoglobin 15.3 g/dL (13.0-16.5); Lymphocyte # 1.62 X10^3/ul (0.83-4.51); Lymphocyte % 20.5 % (19-41); Mean Corp Hgb Conc 33.6 g/dL (32-36); Mean Corpuscular Hgb 32.1 pg (27.0-32.0); Mean Corpuscular Volume 95.6 fL (80-94); Mean Platelet Vol. 10.5 fl (6.2-12.0); Monocyte# 0.93 X10^3/uL; Monocyte% 11.8 % (0-10); NRBC Flagged by Analyzer 0 % (0-5); Neutrophil # 5.02 X10^3/uL (2.7-7.7); Neutrophil % 63.5 % (47-70); Platelet Count 243 K/mm3 (150-450); RBC Distribution Width CV 12.6 % (11.6-14.6); RBC Distribution Width SD 44.4 fl (35.1-43.9); Red Blood Count 4.76 M/mm3 (4.6-6.2); White Blood Count 7.9 K/mm3 (4.4-11.0)
[2023-08-07 16:40] LABS: AST(SGOT) 23 U/L (15-37); Alanine Aminotransfer ALT/SGPT 33 U/L (16-61); Albumin, Serum 3.6 g/dL (3.2-5.0); Alkaline Phosphatase 79 U/L (45-117); Anion Gap 7 (5-15); BUN 17 mg/dL (7-18); Calcium,Total 8.6 mg/dL (8.5-10.1); Chloride 109 mmol/L (98-107); EST Glomerular Filtration Rate 82 mL/min (>60); Est Glom Filt Rate - Afr Amer 100 mL/min (>60); Globulin 3.5 g/dL (2.2-4.2); Glucose 105 mg/dL (74-106); Potassium 3.7 mmol/L (3.5-5.1); Protein, Total 7.1 g/dL (6.4-8.2); Sodium Level 141 mmol/L (136-145)
== END | disposition home or self-care (01) ==
LOC: MTLAB 14:06
PROVIDERS: PCP Internal Medicine; Referring Provider Internal Medicine Rheumatology; Visit Provider Internal Medicine Rheumatology
DX: L40.59 Other psoriatic arthropathy (principal); Z79.899 Other long term (current) drug therapy
CPT/HCPCS: 36415; 80053; 85025

== ENCOUNTER → 2023-11-06 | Outpatient (CLI) | payer BC, SELFPAY ==
--- OUTSIDE RECORDS SUMMARY | 2023-11-06 11:30 | XMS RPT_ITS | CCD ---
Author Name Unknown Address [address] [place] [address] Organization [facility] Care Team Providers Care Director Process Name Role Phone JESSICA BARROSO, DR CARUSO Primary Care Physician Kaden Lopez MD Primary Care Provider [phone] Kaden Lopez MD Primary Care Provider [phone] KADEN LOPEZ Attending Unavailable KADEN LOPEZ Primary Care Unavailable KADEN LOPEZ Primary Care Unavailable OLDER, NOAR Referring Unavailable NORA NELSON Attending Unavailable KADEN LOPEZ Primary Care Unavailable Allergies Allergy Classification Reported Allergen(s) Allergy Type Date of Onset Reaction(s) Facility (3 sources) Ampicillin; Translations: [AMPICILLIN] Drug Allergy 6 [facility] Work Phone: (2 sources) bandaid [Other] Propensity to adverse reactions 9 Rash [facility] Work Phone: (2 sources) bee stings [Other] Propensity to adverse reactions 6 Shortness of Breath [facility] Work Phone: (2 sources) Seasonal Allergies [Other] Propensity to adverse reactions 7 [facility] (1 source) OTHER; Translations: [OTHER] Propensity to adverse reactions (disorder) 9 [facility] Medications Completed/Discontinued Medications Medication Drug Class(es) Dates Sig (Normalized) Sig (Original) [id number] 200 actuat albuterol 0.09 mg/actuat metered dose inhaler (4 sources) beta2-Adrenergic Agonist Start: 11-24-2019 take 2 puff(s) by inhalation every six hours as needed albuterol HFA (PROAIR HFA) 90 mcg/actuation inhaler Indications: Mild intermittent asthma with acute exacerbation Inhale 2 Puffs as instructed every 6 hours as needed. 1 Inhaler 5 11/24/2019 Active Problems Active Problems Problem Classification Problem Date Documented Date Episodic/Chronic Asthma (3 sources) Mild intermittent asthma; Translations: [Mild intermittent asthma with (acute) exacerbation] Onset: 10-21-2007 11-24-2019 Chronic Immunizations and screening for infectious disease (1 source) Needs influenza immunization; Translations: [Encounter for immunization] Episodic Osteoarthritis (2 sources) Osteoarthritis of hip; Translations: [Osteoarthritis of hip, unspecified] Onset: 05-12-2013 11-24-2019 Chronic Other inflammatory condition of skin (2 sources) Psoriasis; Translations: [Psoriasis, unspecified] Onset: 05-12-2013 09-16-2021 Chronic Other inflammatory condition of skin (2 sources) Psoriatic arthritis; Translations: [Arthropathic psoriasis, unspecified] Onset: 09-21-2017 11-24-2019 Chronic Other lower respiratory disease (1 source) Rib pain; Translations: [Pleurodynia] Episodic Other lower respiratory disease (1 source) Chronic cough; Translations: [Chronic cough] Episodic Other upper respiratory disease (2 sources) Chronic rhinitis; Translations: [Chronic rhinitis] Onset: 03-03-2006 05-12-2013 Chronic Other upper respiratory disease (1 source) Chronic rhinitis; Translations: [Unspecified sinusitis (chronic)] Chronic Past or Other Problems Problem Classification Problem Date Documented Da te Episodic/Chronic Other lower respiratory disease (1 source) Pleurodynia; Translations: [Rib pain on right side] Onset: 06-11-2022 Episodic Poisoning by nonmedicinal substances (2 sources) Toxic effect of contact with unspecified venomous animal, accidental (unintentional), initial encounter; Translations: [Toxic effect of venom] Onset: 11-21-2006 11-21-2006 Episodic Results Test Name Value Interpretation Reference Range Facil ity Vital Signs Date Time Vital Sign Value Performing Clinician Faci lity 12-15-2022 19:18-0400 Body temperature 97.3 [degF] Kaden Lopez MD Work Phone: [facility] 12-15-2022 19:18-0400 Body weight 91.17 kg Kaden Lopez MD Work Phone: [facility] 12-15-2022 19:18-0400 Diastolic blood pressure 70 mm[Hg] Kaden Lopez MD Work Phone: [facility] 12-15-2022 19:18-0400 Heart rate 56 /min Kaden Lopez MD Work Phone: [facility] 12-15-2022 19:18-0400 Respiratory rate 16 /min Kaden Lopez MD Work Phone: [facility] 12-15-2022 19:18-0400 Systolic blood pressure 116 mm[Hg] Kaden Lopez MD Work Phone: [facility] 06-11-2022 13:33-0400 Body temperature 97.5 [degF] Nora Older SUPERVISOR PIGMENT MAKING.IUSS MASTER ANALYST Work Phone: [facility] 06-11-2022 13:33-0400 Body weight 86.18 kg Nora Older SUPERVISOR PIGMENT MAKING.IUSS MASTER ANALYST Work Phone: [facility] 06-11-2022 13:33-0400 Diastolic blood pressure 78 mm[Hg] Nora Older SUPERVISOR PIGMENT MAKING.IUSS MASTER ANALYST Work Phone: [facility] 06-11-2022 13:33-0400 Heart rate 64 /min Nora Older SUPERVISOR PIGMENT MAKING.IUSS MASTER ANALYST Work Phone: [facility] 06-11-2022 13:33-0400 Respiratory rate 12 /min Nora Older SUPERVISOR PIGMENT MAKING.IUSS MASTER ANALYST Work Phone: [facility] 06-11-2022 13:33-0400 Systolic blood pressure 116 mm[Hg] Nora Older SUPERVISOR PIGMENT MAKING.IUSS MASTER ANALYST Work Phone: [facility] Encounters Encounter Date Encounter Type Care Provider Facility Start: 12-15-2022 End: 12-15-2022 ambulatory KADEN LOPEZ Facility:[facility] Start: 12-15-2022 End: 12-15-2022 Patient encounter procedure Kaden Lopez MD Work Phone: [facility] Procedures Date Procedure Procedure Detail Performing Clinician Start: 06-11-2022 INFLUENZA VACCINE QUADRIVALENT 6 MO - 64 YRS IM Nora Older SUPERVISOR PIGMENT MAKING.IUSS MASTER ANALYST Work Phone: Start: 11-23-2021 Adult depression scr eening assessment Nora Older SUPERVISOR PIGMENT MAKING.IUSS MASTER ANALYST Work Phone: Start: 04-23-2020 Colonoscopy Nora Older SUPERVISOR PIGMENT MAKING.IUSS MASTER ANALYST Work Phone: Plan of Treatment Date Care Activity Detail Author Start: 10-13-2032 Urine microalbumin profile DTA P,TDAP,TD (3 - Td or Tdap) [facility] Start: 04-23-2025 Colonoscopy COLONOSCOPY [facility] Start: 04-23-2025 COLORECTAL CANCER SCREENING COLORECTAL CANCER SCREENING [facility] Start: 11-23-2024 LIPID SCREEN LIPID SCREEN [facility] Start: 11-23-2024 PROSTATE CANCER SCRE ENING DISCUSSION PROSTATE CANCER SCREENING DISCUSSION [facility] Start: 12-16-2023 ANNUAL PCP TEAM WAX POT TENDER YOLANDA DISEASE VISIT ANNUAL PCP TEAM CHRONIC DISEASE VISIT [facility] Start: 06-11-2023 ANNUAL PCP TEAM WAX POT TENDER YOLANDA DISEASE VISIT ANNUAL PCP TEAM CHRONIC DISEASE VISIT [facility] Start: 05-12-2023 Urine microalbumin profile DTA P,TDAP,TD (2 - Td or Tdap) [facility] Start: 11-23-2022 Adult depression scr eening assessment DEPRESSION SCREENING [facility] Start: 09-29-2022 DIABETES SCREEN DIABETES SCREEN [facility] Start: 09-21-2022 DEPRESSION ASSESSMENT DEPRESSION ASS ESSMENT [facility] Start: 01-10-2022 COVID-19 VACCINE (5 - Booster for Moderna series) COVID-19 VACCINE (5 - Booster for Moderna series) [facility] Start: 11-06-2021 COVID-19 VACCINE (5 - Booster for Moderna series) COVID-19 VACCINE (5 - Booster for Moderna series) [facility] Start: 12-05-2012 COLOGUARD (FIT-DNA) COLOGUARD (FIT-D NA) [facility] Start: 12-05-[address] COLONOGRAPHY [facility] Start: 12-05-2012 FECAL OCCULT BLOOD FECAL OCCULT BLOO D [facility] Start: 12-05-2012 SIGMOIDOSCOPY SIGMOIDOSCOPY [facility] Start: 12-05-1986 SHINGRIX VACCINE (1 of 2) SHINGRIX V ACCINE (1 of 2) [facility] Start: 12-05-1985 SPIROMETRY SPIROMETRY [facility] Start: 12-05-1973 PNEUMOCOCCAL (1 - PCV) PNEUMOCOCCAL (1 - PCV) [facility] Start: 1967 HEPATITIS B (1 of 3 - 3-dose series) HEPATITIS B (1 of 3 - 3-dose series) [facility] Immunizations Immunization Date Immunization Notes Care Provider Fa cility 10-13-2022 tetanus toxoid, redu jeri diphtheria toxoid, and acellular pertussis vaccine, adsorbed Kaden Lopez MD Work Phone: [facility] Work Phone: 06-11-2022 influenza, injectabl e, quadrivalent, contains preservative Nora Older SUPERVISOR PIGMENT MAKING.IUSS MASTER ANALYST Work Phone: [facility] Work Phone: 11-21-2020 COVID-19 original vaccine, full dose, monovalent (MODERNA) Nora Older SUPERVISOR PIGMENT MAKING.IUSS MASTER ANALYST Work Phone: [facility] Work Phone: 08-20-2020 Seasonal, quadrivale nt, recombinant, injectable influenza vaccine, preservative free Kaden Lopez MD Work Phone: [facility] Work Phone: 05-12-2013 tetanus toxoid, redu jeri diphtheria toxoid, and acellular pertussis vaccine, adsorbed Nora Older SUPERVISOR PIGMENT MAKING.IUSS MASTER ANALYST Work Phone: [facility] Payers Date Payer Category Payer Unknown [id number] 2020 Unknown [id number] 2020 Unknown [id number] Social History Date Type Detail Facility Start: 05-12-2013 End: 12-15-2022 Tobacco smoking status NHIS Never smoked tobacco [facility] Work Phone: Start: 05-12-2013 End: 12-15-2022 Tobacco use and exposure Smokeless tobacco non-user [facility] Work Phone: Start: 06-11-2022 End: 12-15-2022 Alcohol intake Current drinker of alcohol (finding) [facility] Start: 11-23-2021 History SDOH Alcohol Frequency 2 [facility] Start: 11-23-2021 History SDOH Alcohol Std Drinks 1 [facility] Start: 11-23-2021 History SDOH Alcohol Comment occasional [facility] Start: 1965 Sex Assigned At Not on file [facility] Clinical Notes 06-11-2022 to 12-16-2022 Kaden Lopez MD - 12/16/2022 10:37 AM EDTPatient Dez Nelson APRN.CNP - 06/11/2022 1:38 PM EDT Note Date & Type Note Facility 12-16-2022 Note HNO ID: [id number] Author: Kaden Lopez MD Service: ? Author Type: Physician Type: Progress Notes Filed: 12/17/2022 9:30 AM Note Text: This note was created using [employer]. Subjective Patient presents with: Nasal Congestion Hollis Brito is a 57 year old male is here with nasal congestion, postnasal drainage, and cough productive of mucous plugs for 3 years. He had right nasal scabbing and epistaxis off and on. His asthma was controlled, and managed by Dr. Linda. His psoriatic arthritis was managed by Dr. Preciado. 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 He had work injury and delayed wound healing of his left arm. He had a Zpak then protracted course of doxycycline. These antibiotic courses did not impact his drainage. Review of Systems Constitutional: Negative for appetite change, chills, diaphoresis, fever and unexpected weight change. HENT: Positive for congestion. Negative for sinus pressure, sneezing, sore throat, trouble swallowing and voice change. Eyes: Negative. Respiratory: Negative for chest tightness, shortness of breath and wheezing. Cardiovascular: Negative. Gastrointestinal: Negative. 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 rOPINIRole (REQUIP) 0.25 mg tablet Take 0.5 mg by mouth daily at bedtime. Take 1 to 2 tablets at bedtime. Dextromethorphan-guaiFENesin (MUCINEX DM) 60-1,200 mg tab ER 12 hr Take by mouth. BREO ELLIPTA 200-25 mcg/dose inhaler fexofenadine (DEWEY ALLERGY) 180 mg tablet Take 1 tablet by mouth once daily. methotrexate 2.5 mg tablet Take 2.5 mg by mouth one time only. 7 tablets once weekly FOLIC ACID ORAL Take 2 tablets by mouth once daily. montelukast (SINGULAIR) 10 mg tablet Take 1 tablet by mouth daily at bedtime. fluticasone (FLONASE) 50 mcg/actuation nasal spray Use 2 Sprays in each nostril once daily. Rinse mouth after use. albuterol HFA (PROAIR HFA) 90 mcg/actuation inhaler Inhale 2 Puffs as instructed every 6 hours as needed. (Patient not taking: Reported on 12/15/2022) No current facility-administered medications for this visit. Objective BP 116/70 (BP Site: Right Arm, BP Position: Sitting, BP Cuff Size: Large Adult) Pulse (!) 56 Temp 36.3 ?C (97.3 ?F) (Temporal) Resp 16 Wt 91.2 kg (201 lb) BMI (P) 29.05 kg/m? Physical Exam Constitutional: General: He is not in acute distress. HENT: Right Ear: Tympanic membrane normal. Left Ear: Tympanic membrane normal. Nose: Congestion present. Right Nostril: Epistaxis present. Right Turbinates: Enlarged and swollen. Right Sinus: No maxillary sinus tenderness or frontal sinus tenderness. Left Sinus: No maxillary sinus tenderness or frontal sinus tenderness. Mouth/Throat: Mouth: Mucous membranes are moist. Pharynx: Oropharynx is clear. Cardiovascular: Rate and Rhythm: Normal rate and regular rhythm. Pulmonary: Effort: No respiratory distress. Breath sounds: No wheezing. Lymphadenopathy: Cervical: No cervical adenopathy. Neurological: Mental Status: He is alert. Assessment and Plan 1. Rhinosinusitis - ICD9: 473.9, ICD10: J31.0, J32.9 (primary diagnosis) - Supportive care with plenty of fluids, rest, and analgesia prn. - CONSULT TO ENT - MONTELUKAST 10 MG TABLET. Discussed medication dosage, usage, goals of therapy, and side effects. - FLUTICASONE PROPIONATE 50 MCG/ACTUATION NASAL SPRAY,SUSPENSION 2. Mild intermittent asthma with acute exacerbation - ICD9: 493.92, ICD10: J45.21 Mild intermittent Asthma stable - Avoidance of triggers recommended - BUDESONIDE 0.5 MG/2 ML SUSPENSION FOR NEBULIZATION - DEXTROMETHORPHAN-GUAIFENESIN ER 60 MG-1,200 MG TAB,EXTEND RELEASE,12HR Kaden Lopez MD [facility] 12-16-2022 History of Presen t illness Narrative This note was created using [employer]. Subjective Patient presents with: Nasal Congestion Hollis Brito is a 57 year old male is here with nasal congestion, postnasal drainage, and cough productive of mucous plugs for 3 years. He had right nasal scabbing and epistaxis off and on. His asthma was controlled, and managed by Dr. Linda. His psoriatic arthritis was managed by Dr. Preciado. 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 He had work injury and delayed wound healing of his left arm. He had a Zpak then protracted course of doxycycline. These antibiotic courses did not impact his drainage. Review of Systems Constitutional: Negative for appetite change, chills, diaphoresis, fever and unexpected weight change. HENT: Positive for congestion. Negative for sinus pressure, sneezing, sore throat, trouble swallowing and voice change. Eyes: Negative. Respiratory: Negative for chest tightness, shortness of breath and wheezing. Cardiovascular: Negative. Gastrointestinal: Negative. 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 rOPINIRole (REQUIP) 0.25 mg tablet Take 0.5 mg by mouth daily at bedtime. Take 1 to 2 tablets at bedtime. Dextromethorphan-guaiFENesin (MUCINEX DM) 60-1,200 mg tab ER 12 hr Take by mouth. BREO ELLIPTA 200-25 mcg/dose inhaler fexofenadine (DEWEY ALLERGY) 180 mg tablet Take 1 tablet by mouth once daily. methotrexate 2.5 mg tablet Take 2.5 mg by mouth one time only. 7 tablets once weekly FOLIC ACID ORAL Take 2 tablets by mouth once daily. montelukast (SINGULAIR) 10 mg tablet Take 1 tablet by mouth daily at bedtime. fluticasone (FLONASE) 50 mcg/actuation nasal spray Use 2 Sprays in each nostril once daily. Rinse mouth after use. albuterol HFA (PROAIR HFA) 90 mcg/actuation inhaler Inhale 2 Puffs as instructed every 6 hours as needed. (Patient not taking: Reported on 12/15/2022) No current facility-administered medications for this visit. Objective BP 116/70 (BP Site: Right Arm, BP Position: Sitting, BP Cuff Size: Large Adult) Pulse (!) 56 Temp 36.3 C (97.3 F) (Temporal) Resp 16 Wt 91.2 kg (201 lb) BMI (P) 29.05 kg/m Physical Exam Constitutional: General: He is not in acute distress. HENT: Right Ear: Tympanic membrane normal. Left Ear: Tympanic membrane normal. Nose: Congestion present. Right Nostril: Epistaxis present. Right Turbinates: Enlarged and swollen. Right Sinus: No maxillary sinus tenderness or frontal sinus tenderness. Left Sinus: No maxillary sinus tenderness or frontal sinus tenderness. Mouth/Throat: Mouth: Mucous membranes are moist. Pharynx: Oropharynx is clear. Cardiovascular: Rate and Rhythm: Normal rate and regular rhythm. Pulmonary: Effort: No respiratory distress. Breath sounds: No wheezing. Lymphadenopathy: Cervical: No cervical adenopathy. Neurological: Mental Status: He is alert. Assessment and Plan 1. Rhinosinusitis - ICD9: 473.9, ICD10: J31.0, J32.9 (primary diagnosis) - Supportive care with plenty of fluids, rest, and analgesia prn. - CONSULT TO ENT - MONTELUKAST 10 MG TABLET. Discussed medication dosage, usage, goals of therapy, and side effects. - FLUTICASONE PROPIONATE 50 MCG/ACTUATION NASAL SPRAY,SUSPENSION 2. Mild intermittent asthma with acute exacerbation - ICD9: 493.92, ICD10: J45.21 Mild intermittent Asthma stable - Avoidance of triggers recommended - BUDESONIDE 0.5 MG/2 ML SUSPENSION FOR NEBULIZATION - DEXTROMETHORPHAN-GUAIFENESIN ER 60 MG-1,200 MG TAB,EXTEND RELEASE,12HR Kaden Lopez MD documented in this encounter [facility] 06-11-2022 Note HNO ID: [id number] Author: RT Dana(R) Service: ? Author Type: Locator Type: Progress Notes Filed: 06/11/2022 2:12 PM Note Text: Radiology Service Progress Note PATIENT NAME: Hollis Brito DATE OF SERVICE: June 11, 2022 TIME: 1:56 PM PATIENT IDENTITY VERIFICATION COMPLETED USING TWO (2) IDENTIFIERS: Name and Date of confirmed by patient verbally. FALL SCREENING: Has the patient had 2 falls in the last year or 1 fall with injury or currently using an Ambulatory Assistive Device (Walker, Cane, Wheelchair, Crutches, etc.)? No PATIENT GENDER DATA: Male PATIENT RELEVANT IMPLANT DATA REVIEWED: Yes RADIOLOGY DEPARTMENT: General X-ray: Exam(s) Completed: Rib X-Ray: Right PERIPHERAL IV DATA: Not applicable SIGNED BY: RT Dana(R) June 11, 2022 1:56 PM [facility] 06-11-2022 Note HNO ID: [id number] Author: Nora Nelson APRN.ASIM Service: ? Author Type: Nurse Practitioner Type: Progress Notes Filed: 06/11/2022 1:56 PM Note Text: CC: Patient presents with: Immunizations: Flu vaccination HPI Hollis Brito is a 56 year old male who presents today for rib pain. Patient reports his rib on the right side popped out of place due to coughing fits from asthma. He went to chriopractor initially who popped it back into place however it has come out of place several more times since then. He is able to pop it back in. Reports constant pain right postero lateral lower rib, aggravated by deep breathing and coughing. He has not taken anything for the pain or cough. He is using inhalers and medications prescribed by his film and video graphics designer and has follow-up scheduled with Dr. Linda on Thursday. Denies fever, chills, SOB, chest pain, palpitations, hemoptysis, wheezing. REVIEW OF SYSTEMS See HPI PAST MEDICAL HISTORY Diagnosis Date Asthma ASTHMA UNSPECIFIED 10/21/2007 Chronic rhinitis 03/03/2006 DJD (degenerative joint disease) of hip 05/12/2013 Dr. Moeller Psoriasis 05/12/2013 Dr. Calloway Psoriatic arthritis (HCC) 09/21/2017 Dr. 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 albuterol (PROVENTIL) 2.5 mg /3 mL (0.083 %) nebulizer solution Use 3 mL via nebulizer every 6 hours as needed for Wheezing/Shortness of Breath. 1 vial contains 3 ml. methotrexate 2.5 mg tablet Take 2.5 mg by mouth one time only. 7 tablets once weekly FOLIC ACID ORAL Take 2 tablets by mouth once daily. albuterol HFA (PROAIR HFA) 90 mcg/actuation inhaler Inhale 2 Puffs as instructed every 6 hours as needed. (Patient not taking: No sig reported) FAMILY HISTORY Problem Relation Age of Onset Cancer Mother 67 lung cancer Hypertension Mother Arthritis Mother psoriatic GI Father diverticulitis Heart Father [place] @ 81 years COPD Father davies's lung GI Brother diverticulitis Hypertension Brother Genitourinary () Brother urethral stenosis Colon Cancer Paternal Grandfather Social History Tobacco Use Smoking status: Never Smokeless tobacco: Never Vaping Use Vaping Use: Never used Substance Use Topics Alcohol use: Yes Comment: occasional Drug use: No PHYSICAL EXAM BP 116/78 (BP Site: Left Arm, BP Position: Sitting, BP Cuff Size: Large Adult) Pulse 64 Temp 36.4 ?C (97.5 ?F) (Temporal) Resp 12 Wt 86.2 kg (190 lb) BMI (P) 27.46 kg/m? General Appearance: well appearing, in no acute distress, alert Lungs: Lungs clear to auscultation. No wheezing, rhonchi, rales. Heart: RRR without murmur, gallop, or rubs. No ectopy Musculoskeletal: significant point tenderness with palpation of posterior 10th rib. No crepitus or step offs. No obvious deformities. No rashes or lesions in the area of pain. ASSESSMENT/PLAN: 1. 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 Chronic cough - ICD9: 786.2, ICD10: R05.3 Patient attributes to asthma. Recommend starting Mucinex OTC. Follow-up with film and video graphics designer as scheduled 3. Need for influenza vaccination - ICD9: V04.81, ICD10: Z23 - INFLUENZA VACCINE QUADRIVALENT 6 MO - 64 YRS IM Prescription instructions reviewed with patient as applicable. Potential red flag symptoms discussed with the patient. Reviewed appropriate action plan to take if red flag symptoms occur. Patient agreeable to treatment plan. Nora Nelson APRN.CNP [facility] 06-11-2022 Instructions Nora Nelson APRN.CNP - 06/11/2022 1:46 PM EDT Over the counter medications: ibuprofen (Motrin , Advil ) or naproxen (Aleve ), take routinely for the next 3-4 days. Can also try topical medications such as Icy Hot, Biofreeze or Lidocaine. Non-medication measures: Ice for localized pain/tenderness and/or heat. Splinting with pillow when coughing or deep breathing documented in this encounter [facility] 06-11-2022 History of Presen t illness Narrative CC: Patient presents with: Immunizations: Flu vaccination HPI Hollis Brito is a 56 year old male who presents today for rib pain. Patient reports his rib on the right side popped out of place due to coughing fits from asthma. He went to chriopractor initially who popped it back into place however it has come out of place several more times since then. He is able to pop it back in. Reports constant pain right postero lateral lower rib, aggravated by deep breathing and coughing. He has not taken anything for the pain or cough. He is using inhalers and medications prescribed by his film and video graphics designer and has follow-up scheduled with Dr. Linda on Thursday. Denies fever, chills, SOB, chest pain, palpitations, hemoptysis, wheezing. REVIEW OF SYSTEMS See HPI PAST MEDICAL HISTORY Diagnosis Date Asthma ASTHMA UNSPECIFIED 10/21/2007 Chronic rhinitis 03/03/2006 DJD (degenerative joint disease) of hip 05/12/2013 Dr. Moeller Psoriasis 05/12/2013 Dr. Calloway Psoriatic arthritis (HCC) 09/21/2017 Dr. 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 albuterol (PROVENTIL) 2.5 mg /3 mL (0.083 %) nebulizer solution Use 3 mL via nebulizer every 6 hours as needed for Wheezing/Shortness of Breath. 1 vial contains 3 ml. methotrexate 2.5 mg tablet Take 2.5 mg by mouth one time only. 7 tablets once weekly FOLIC ACID ORAL Take 2 tablets by mouth once daily. albuterol HFA (PROAIR HFA) 90 mcg/actuation inhaler Inhale 2 Puffs as instructed every 6 hours as needed. (Patient not taking: No sig reported) FAMILY HISTORY Problem Relation Age of Onset Cancer Mother 67 lung cancer Hypertension Mother Arthritis Mother psoriatic GI Father diverticulitis Heart Father [place] @ 81 years COPD Father davies's lung GI Brother diverticulitis Hypertension Brother Genitourinary () Brother urethral stenosis Colon Cancer Paternal Grandfather Social History Tobacco Use Smoking status: Never Smokeless tobacco: Never Vaping Use Vaping Use: Never used Substance Use Topics Alcohol use: Yes Comment: occasional Drug use: No PHYSICAL EXAM BP 116/78 (BP Site: Left Arm, BP Position: Sitting, BP Cuff Size: Large Adult) Pulse 64 Temp 36.4 C (97.5 F) (Temporal) Resp 12 Wt 86.2 kg (190 lb) BMI (P) 27.46 kg/m General Appearance: well appearing, in no acute distress, alert Lungs: Lungs clear to auscultation. No wheezing, rhonchi, rales. Heart: RRR without murmur, gallop, or rubs. No ectopy Musculoskeletal: significant point tenderness with palpation of posterior 10th rib. No crepitus or step offs. No obvious deformities. No rashes or lesions in the area of pain. ASSESSMENT/PLAN: 1. 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 Chronic cough - ICD9: 786.2, ICD10: R05.3 Patient attributes to asthma. Recommend starting Mucinex OTC. Follow-up with film and video graphics designer as scheduled 3. Need for influenza vaccination - ICD9: V04.81, ICD10: Z23 - INFLUENZA VACCINE QUADRIVALENT 6 MO - 64 YRS IM Prescription instructions reviewed with patient as applicable. Potential red flag symptoms discussed with the patient. Reviewed appropriate action plan to take if red flag symptoms occur. Patient agreeable to treatment plan. Nora Nelson APRN.ASIM documented in this encounter [facility] Evaluation + Plan note No data available for this section [facility] Diagnosis Rhinosinusitis- Primary Unspecified sinusitis (chronic) Mild intermittent asthma with acute exacerbation Unspecified asthma, with exacerbation [facility] No data available for this section [facility] Reason for referral (narrative)* Diagnostic Procedure Only (Urgent) - Closed Specialty Diagnoses / Procedures Referred By Carole reece Referred To Contact XR IMAGING Diagnoses Rib pain on right side Procedures XR RIBS/CHEST 3V AP RIB/OBLS/CXR RIGHT RADEX RIBS UNI W/POSTEROANT CH MINIMUM 3 VIEWS Nora Nelson APRN.CNP [address] [place] [address] Xr Imaging Referral ID Status Reason Start Date Expiration Date V isits Requested Visits Authorized [id number] Closed Auto-Generate d Referral 06/11/2022 07/11/2023 1 1 [facility] Summary Purpose Family History No Family History Records FoundNo Family History Records Found Advance Directives No Advanced Directives Records FoundNo Advanced Directives Records Found Reason for Referral Specialty Diagnoses / Procedures Referred By Carole reece Referred To Contact Ent - Otolaryngology Diagnoses Rhinosinusitis Procedures CONSULT TO ENT Kaden Lopez MD [address] [place] [address] Referral ID Status Reason Start Date Expiration Date Visits Requested Visits Authorized [id number] Ref Not Required PCP Requested Referral 12/15/2022 12/15/2023 1 1 Additional Source Comments (unrecognized sect ion and content) No Status Records FoundNo Status Records Found INFORMATION SOURCE (unrecogn ized section and content) DATE CREATED AUTHOR AUTHOR'S ORGANIZ ATION 12/18/2022 [facility] Source Comments (unrecognize d section and content) In the event this informatio n is protected by the Federal Confidentiality of Alcohol and Drug Abuse Patient Records regulations: The Federal rules restrict any use of the information to criminally investigate or prosecute any alcohol or drug abuse patient.[facility] the event this information is protected by the Federal Confidentiality of Alcohol and Drug Abuse Patient Records regulations: The Federal rules restrict any use of the information to criminally investigate or prosecute any alcohol or drug abuse patient.[facility] Reason for Visit (unrecogniz ed section and content) Reason Comments Nasal Congestion Care Teams (unrecognized sec tion and content) Director Process Relationship Specialty Start Date End Date Kaden Lopez MD [address] [place] [address] PCP - General Internal Medicine 04/03/14 FOR RECORDS PERTAINING TO PATIENTS WHO ARE OR HAVE BEEN ENROLLED IN A CHEMICAL DEPENDENCY/SUBSTANCEABUSE PROGRAM, SOME INFORMATION MAY BE OMITTED. This clinical summary was aggregated from multiple sources. Caution should be exercised in using it in the provision of clinical care. This summary normalizes information from multiple sources, and as a consequence, information in this document may materially change the coding, format and clinical context of patient data. In addition, data may be omitted in some cases. CLINICAL DECISIONS SHOULD BE BASED ON THE PRIMARY CLINICAL RECORDS. [employer] [facility]. provides no warranty or guarantee of the accuracy or completeness of information in this document.
[2023-11-06 12:15] LABS: Absolute Lymphocyte Count 1.26 X10^3/uL (0.83-4.51); Absolute Neutrophil Count 5.7 X10^3/uL (2.0-7.7); Basophil# 0.07 X10^3/uL; Basophil% 0.8 % (0-1); Eosinophil# 0.18 X10^3/uL; Eosinophils% 2.2 % (0-5); Hematocrit 47.1 % (40-54); Hemoglobin 15.7 g/dL (13.0-16.5); Lymphocyte # 1.26 X10^3/ul (0.83-4.51); Lymphocyte % 15.2 % (19-41); Mean Corp Hgb Conc 33.3 g/dL (32-36); Mean Corpuscular Hgb 32.2 pg (27.0-32.0); Mean Corpuscular Volume 96.7 fL (80-94); Mean Platelet Vol. 10.8 fl (6.2-12.0); Monocyte# 1.07 X10^3/uL; Monocyte% 12.9 % (0-10); NRBC Flagged by Analyzer 0 % (0-5); Neutrophil # 5.66 X10^3/uL (2.7-7.7); Neutrophil % 68.3 % (47-70); Platelet Count 279 K/mm3 (150-450); RBC Distribution Width CV 13.1 % (11.6-14.6); RBC Distribution Width SD 46.4 fl (35.1-43.9); Red Blood Count 4.87 M/mm3 (4.6-6.2); White Blood Count 8.3 K/mm3 (4.4-11.0)
[2023-11-06 12:39] LABS: ALB/GLOB Ratio 0.9 RATIO (0.9-2.4); AST(SGOT) 24 U/L (15-37); Alanine Aminotransfer ALT/SGPT 28 U/L (16-61); Albumin, Serum 3.7 g/dL (3.2-5.0); Alkaline Phosphatase 107 U/L (45-117); Anion Gap 2 (5-15); BUN 15 mg/dL (7-18); BUN/Creat Ratio 15.6 RATIO (10-20); Calcium,Total 9.2 mg/dL (8.5-10.1); Chloride 107 mmol/L (98-107); Creatinine, Serum 0.96 mg/dL (0.70-1.30); EST Glomerular Filtration Rate 86 mL/min (>60); Est Glom Filt Rate - Afr Amer 104 mL/min (>60); Globulin 3.9 g/dL (2.2-4.2); Glucose 81 mg/dL (74-106); Potassium 3.9 mmol/L (3.5-5.1); Protein, Total 7.6 g/dL (6.4-8.2); Sodium Level 138 mmol/L (136-145)
== END | disposition home or self-care (01) ==
LOC: MTLAB 11:08
PROVIDERS: PCP Internal Medicine; Referring Provider Internal Medicine Rheumatology; Visit Provider Internal Medicine Rheumatology
DX: L40.59 Other psoriatic arthropathy (principal); Z79.899 Other long term (current) drug therapy
CPT/HCPCS: 36415; 80053; 85025

== ENCOUNTER → 2023-12-10 | Outpatient (CLI) | payer BC, SELFPAY ==
--- NOTE | 2023-12-10 10:47 | RAD_ITS ---
STUDY: X-RAY - LEFT HAND REASON FOR EXAM: Male, 58 years old. Hand injury TECHNIQUE: 3 view(s) of the hand. COMPARISON: None. FINDINGS: Normal radiocarpal articulation. Normal distal radioulnar joint. Normal visualized carpal bones. Normal carpal articulations Normal carpometacarpal articulation of the thumb. Normal second through fifth carpometacarpal joints. Normal metacarpi. Normal metacarpophalangeal joint of the thumb. Normal interphalangeal joint of the thumb. Normal proximal and distal phalanges of the thumb. Normal metacarpophalangeal joints of the second through fifth fingers. Normal proximal and distal interphalangeal joints of the second through fifth fingers. Normal phalanges of the second through fifth fingers. The soft tissue structures are unremarkable. RAD/Hand Min 3 Views IMPRESSION: Normal x-ray examination of the hand. Electronically Signed: Reji Guillen MD at 10:59 EDT ,
== END | disposition home or self-care (01) ==
LOC: MTRAD 10:46
PROVIDERS: PCP Internal Medicine; Referring Provider Physician Assistant Surgical; Visit Provider Physician Assistant Surgical
DX: T14.90XA Injury, unspecified, initial encounter (principal)
CPT/HCPCS: 73130

== ENCOUNTER → 2024-02-01 | Outpatient (CLI) | payer BC, SELFPAY ==
[2024-02-01 15:53] LABS: Absolute Lymphocyte Count 1.51 X10^3/uL (0.83-4.51); Absolute Neutrophil Count 5.8 X10^3/uL (2.0-7.7); Basophil# 0.06 X10^3/uL; Basophil% 0.7 % (0-1); Eosinophil# 0.23 X10^3/uL; Eosinophils% 2.7 % (0-5); Hematocrit 44.4 % (40-54); Hemoglobin 14.9 g/dL (13.0-16.5); Lymphocyte # 1.51 X10^3/ul (0.83-4.51); Lymphocyte % 17.6 % (19-41); Mean Corp Hgb Conc 33.6 g/dL (32-36); Mean Corpuscular Hgb 31.6 pg (27.0-32.0); Mean Corpuscular Volume 94.1 fL (80-94); Mean Platelet Vol. 10.5 fl (6.2-12.0); Monocyte# 0.99 X10^3/uL; Monocyte% 11.5 % (0-10); NRBC Flagged by Analyzer 0 % (0-5); Neutrophil # 5.76 X10^3/uL (2.7-7.7); Neutrophil % 66.9 % (47-70); Platelet Count 273 K/mm3 (150-450); RBC Distribution Width CV 13.5 % (11.6-14.6); RBC Distribution Width SD 46.4 fl (35.1-43.9); Red Blood Count 4.72 M/mm3 (4.6-6.2); White Blood Count 8.6 K/mm3 (4.4-11.0)
[2024-02-01 16:11] LABS: ALB/GLOB Ratio 0.9 RATIO (0.9-2.4); AST(SGOT) 20 U/L (15-37); Alanine Aminotransfer ALT/SGPT 26 U/L (16-61); Albumin, Serum 3.7 g/dL (3.2-5.0); Alkaline Phosphatase 106 U/L (45-117); Anion Gap 8 (5-15); BUN 12 mg/dL (7-18); BUN/Creat Ratio 11.2 RATIO (10-20); Calcium,Total 8.9 mg/dL (8.5-10.1); Chloride 107 mmol/L (98-107); Creatinine, Serum 1.07 mg/dL (0.70-1.30); EST Glomerular Filtration Rate 76 mL/min (>60); Est Glom Filt Rate - Afr Amer 92 mL/min (>60); Glucose 100 mg/dL (74-106); Potassium 3.7 mmol/L (3.5-5.1); Protein, Total 7.7 g/dL (6.4-8.2); Sodium Level 141 mmol/L (136-145)
== END | disposition home or self-care (01) ==
PROVIDERS: PCP Internal Medicine; Referring Provider Internal Medicine Rheumatology; Visit Provider Internal Medicine Rheumatology
DX: L40.59 Other psoriatic arthropathy (principal); Z79.899 Other long term (current) drug therapy; L40.8 Other psoriasis
CPT/HCPCS: 36415; 80053; 85025

== ENCOUNTER 2024-03-09 15:00 | Outpatient (RCR) | payer BC, SELFPAY ==
--- NOTE | 2024-01-28 15:27 | HP.OTEVAL ---
Patient's Visit Information Visit Information Visit Information: RUFINA MASCORRO is a 58 year old M, referred to Occupational Therapy by BECK Marquis, with a diagnosis of S69.92XA, injury of L index finger. Date of Evaluation: 01/28/24 Occupational Therapist: Trudi Go Subjective Subjective: This 58 year old male referred to OT due to persistent L IF pain. injury 6-7 weeks ago with steer stick between two fingers adn steer was able to twist stick around finger causing pain. pt reports he has been in pain ever since. X ray complete no fx indicated shows arthritis of joints. Pt took prednisone for approx 3-4 days which did help the swelling. pt pain is when flexing the hand at the radiolateral aspect of D2 MCP pain also with digit extension. no pain at rest but with movement pain at 3-4/10. pt is R hand dominant. pt states he does have arthritis which he has now had for approx 17 years. 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 Pain L D2: Current Pain Intensity: 3 Objective Objective/Observation: pt arrives this date no orthosis no swelling noted in hand. normal coloration of hand. reported pain with L hand D2 flex/extenion as well as abduction ROM Shoulder: wfl Elbow: wfl Forearm: wfl Wrist: wfl CMC: wfl MP: wfl IP: wfl Radial Abduction: wfl Palmar Abduction: wfl Opposition: wfl MP: R 0/85 L 0/70 PIP: R 0/105 L 0/105 DIP: R0/80 L 0/85 ROM Comments: decreased ROM at L IF MCP Strength Washer Engineer Helper: R hand 80 pounds L hand 20 pounds Lateral Pinch: R hand 8 pounds L hand 6 pounds Tripod Pinch: R hand 5 pounds L hand 5 pounds Edema Other: R 22.3 L 22.5 Sensation Sensation Comments: denies Nine Hole Peg Right: 20 sec Left: 20 sec In-Hand Manipulation Finger to Palm Translation: Normal - Right and Normal - Left Quick DASH-Disab of Arm,Shoulder& Hand Quick DASH Score: 13.6350 Goals Goal:: 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 strength equal to non affected hand (85 pounds RUE) in order to return to IADL as well as work related tasks within 6 weeks Goal:: pt will increase L hand IF flexion at the MP joint to 80 degrees in order to return to IADL and work related tasks within 6 weeks Goal:: pt will decrease L hand IF pain with movement to 1/10 or less for increased functional use in day to day tasks within 6 weeks Goal:: pt will verbalize/ demonstrate 100% accuracy in proper joint protection and proper positioning during day to day tasks by third session Goal:: pt will improve quick dash score by 5-10 points (13.63 at eval) in order to increase perceived use of L hand within 6 weeks Rehabilitation General Assessment: This 58 year old male presents this date reporting L IF pain with completion of flexion extension as well as abduction of digit. 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 Rehabilitation Potential: Good Anticipated Interventions Anticipated Interventions: A/AAROM/PROM, Strengthening, Massage, Triggerpoint Release, Modalities, Joint Protection/Energy Conservation, Education re assistive Equipment, Education re Diagnosis, Education re Self Massage Techniques and Home Program Visit Plan Frequency: 1x/Week Duration: 6 Weeks General Plan: modalities tendon glide trigger point release and massage AROM/AAROM/PROM strengthening TEXT: Thank you for the opportunity to evaluate your patient. For Medicare and Medicare HMO plans, please review the plan of care and approve it. It will need to be FAXED BACK to us at [phone] for Medicare purposes. Please let me know if there are questions or concerns regarding this plan of care. Physician Signature: Date:
--- NOTE | 2024-03-09 15:33 | HP.OTDCSUM_ITS ---
Discharge Summary D/C Summary: It has been my pleasure to treat RUFINA MASCORRO under orders from BECK Marquis, for the diagnosis of S69.92XA, injury of L index finger for a total of 6 visit(s). Please see the following information for a summary of their discharge status. Pain modality treatment as well as training in joint protection. short arc AROM and ed on shashi taping for pain reduction and return to function. pt plan is to make appointment with ortho specialist. 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 equal to non affected hand (85 pounds RUE) in order to return to [employer]AD[employer] as well as work related tasks within 6 weeks now at 65 pounds not met Goal:: pt will increase L hand IF flexion at the MP joint to 80 degrees in order to return to IADL and work related tasks within 6 weeks now 75 degrees goal not met Goal:: pt will decrease L hand IF pain with movement to 1/10 or less for increased functional use in day to day tasks within 6 weeks 1/10 at rest and 3/10 with movement goa not emt Goal:: pt will verbalize/ demonstrate 100% accuracy in proper joint protection and proper positioning during day to day tasks by third session goal met Goal:: pt will improve quick dash score by 5-10 points (13.63 at eval) in order to increase perceived use of L hand within 6 weeks now 15.97 goal not met Plan Plan: discharge this date pt to go see ortho specialist D/C Information d/c sentence: If there are questions or concerns regarding this patient's occupational therapy, please fell free to call me at [phone]. Thank you for the referral of this patient. Sincerely, Trudi Go
--- NOTE | 2024-03-09 15:36 | HP.OT.NRP ---
Patient Information Patient Information: RUFINA MASCORRO was seen in my office for initial evaluation on 01/28/24. The following Plan of Care was established for this patient: POC Established Initial Frequency: 1x/Week Initial Duration: 6 Weeks Plan: discharge this date pt to go see ortho specialist Anticipated Interventions Anticipated Interventions: A/AAROM/PROM, Strengthening, Massage, Triggerpoint Release, Modalities, Joint Protection/Energy Conservation, Education re assistive Equipment, Education re Diagnosis, Education re Self Massage Techniques and Home Program Last Seen Last Seen: This patient was last seen in our office 03/09/24. Pertinent comments regarding their Occupational therapy will appear below: This 58 year old male seen due to pain at L hand D2 MCP joint. Pt continues to have pain during grasping motion resting at about a 1/10. pain modalities complete as well as short arc AROM and trigger point massage for healing and blood flow. ed provided on options of shashi taping/ taping as well as proper joint protection. Pt states he is going to book an appointment with ortho specialist to see what is going on. discharge at this time as pt to refer to ortho. At this point I will be discontinuing this patient from occupational therapy. I would be happy to see this patient again in the future if found appropriate by the physician. Thank you! Trudi Go
== END 2024-03-09 19:00 | disposition home or self-care (01) ==
LOC: OT 15:00
PROVIDERS: PCP Internal Medicine; Referring Provider Physician Assistant Surgical; Visit Provider Physician Assistant Surgical
DX: S69.92XD Unspecified injury of left wrist, hand and finger(s), subsequent encounter (principal)
CPT/HCPCS: 97035; 97140; 97165; 97530

== ENCOUNTER 2024-04-05 12:07 | Emergency (ER) | payer BC, SELFPAY ==
[2024-04-05 12:07] VITALS: BP 129/92; PULSE 68; RESP 16; TEMP 36.7; BMI 27.4
[2024-04-05 12:12] VITALS: O2SAT 97
--- NOTE | 2024-04-05 12:28 | EX.ED.UPPERE ---
HPI History of Present Illness HPI Narrative: Patient presents with injury to his right index finger that occurred today. Patient states he got it between 2 pieces of metal. Patient is right-hand dominant. Patient states this occurred approxione and 1/2 hours ago. Patient went to urgent care and was referred to the emergency department. Patient states his pain is worse with any palpation and with any movement. Patient admits to some tingling in the tip of his finger. Patient is unsure of his last tetanus. Chief Complaint: Laceration Informant: patient Occured/Mechanism Mechanism/Context: Yes blunt trauma Onset/Context/Timing Onset: Today Context: Sudden Onset Timing: Continuous Quality of Pain: Aching and Throbbing Location: Distal phalanx right index finger Worsened by: Palpation, movement Relieved by: Nothing Associated Symptoms Associated Symptoms: Positive for Parasthesia; Negative for Weakness or Loss of Funtion Narrative Tetanus Immunization: Unknown [facility] Medical History (Updated 04/05/24 @ 15:[address] Adolfo Mccormick, DO) Laceration of left forearm URI (upper respiratory infection) Acute pharyngitis, unspecified Arthritis Knee pain Home Medications ?Medication ?Instructions ?Recorded ?Last Taken ?Type folic acid 1 mg tablet 1 mg PO DAILY 07/31/20 Unknown History fluticasone furoate 200 inhalation 11/16/20 Unknown History mcg-vilanterol 25 mcg/dose inhalation powder methotrexate sodium 2.5 mg tablet mg PO 11/16/20 Unknown History pramipexole 0.25 mg tablet 0.25 mg PO QHS 08/28/22 Unknown History budesonide 0.25 mg/2 mL suspension 0.25 mg inhalation BID PRN 07/03/23 Unknown History for nebulization clobetasol 0.05 % scalp solution topical 12/10/23 Unknown History ipratropium bromide 21 mcg (0.03 1 spray intranasal BID 12/10/23 Unknown History %) nasal spray montelukast 10 mg tablet 10 mg PO QHS 12/10/23 Unknown History clindamycin HCl 300 mg capsule 300 mg PO Q6H #40 CAPSULES 04/05/24 Unknown Rx (Cleocin HCl) Allergy/AdvReac Type Severity Reaction Status Date / Time bee venom protein (honey bee) Allergy Mild unknown Verified 01/22/24 15:22 Latex, Natural Rubber Allergy Mild unknown Verified 01/22/24 15:22 ampicillin Allergy Unknown Other Verified 01/22/24 15:22 Surgical History (Updated 04/05/24 @ 12:[address] Adolfo Mccormick DO) Hx of foot surgery History of total hip replacement Social History Smoking Status: Never smoker ROS ROS ED Constitutional Constitutional ED: Denies chills or fever(s) Eyes Eyes: Denies blurry vision or change in vision ENT ENT ED: Denies rhinorrhea or sore throat Cardiovascular Cardiovascular: Denies chest pain or palpitations Respiratory/Chest Respiratory/Chest: Reports cough; Denies dyspnea Gastrointestinal Gastrointestinal: Denies nausea or vomiting Genitourinary Genitourinary ED: Denies dysuria or hematuria Musculoskeletal Musculoskeletal: Denies back pain or neck pain Integumentary Denies abscess or rash Neurologic Neurologic: Denies headache(s) or weakness Allergic/Immunologic Allergic/Immunologic ED: Denies mouth swelling or urticaria EXAM Physical Exam Const Vital Signs: 04/05/24 12:07 04/05/24 12:12 Temperature 98.1 F Temperature Source Temporal Pulse Rate 68 Respiratory Rate 16 Blood Pressure 129/92 H Blood Pressure Mean 104 Pulse Ox 97 Positive well nourished and well developed General Appearance ED: well developed and NAD HEENT Reports moist mucous membranes Neck full ROM and supple Extremity Extremity Narrative: There is a 2.5 cm full-thickness laceration over the distal phalanx of the right index finger that extends into the nailbed. The nail plate was avulsed. There is moderate gapping of the wound margins. There is no foreign body noted. There is minimal bleeding noted. Sensation was intact to light touch in all digits. Capillary refill was less than 2 seconds in all digits. Strength is 5/5 in flexion and and extension of the MP, PIP, and DIP joints. Neuro oriented x3, CN's II-XII intact bilaterally, moves all extremities, no focal motor deficits and no sensory deficits noted Sensorium / Orientation: alert Motor Exam: strength 5/5 throughout Psych mental status grossly normal MDM MDM MDM Narrative Medical decision making narrative: Differential diagnosis includes open fracture of the distal phalanx of the right index finger, and laceration. X-rays of the right index finger will be obtained to assess for fracture. Radiography Diagnostic Testing: X-rays of the right index finger were obtained. There are 3 views. On my independent interpretation, there is a nondisplaced fracture of the tip of the distal phalanx of the right index finger. Radiologist also interpreted the x-rays and agrees. Treatment and Re-Evaluation Narrative: Patient was given a tetanus booster. The wound was cleaned and irrigated with copious amounts of normal saline. The wound was anesthetized with 1% plain lidocaine via digital block. The nailbed laceration was closed with 4 simple interrupted #5-0 Vicryl rapide sutures. The wound outside of the nailbed was closed with 4 simple interrupted #4-0 nylon sutures under sterile technique. Patient tolerated the procedure well. Bacitracin dressing was applied. Aluminum foam splint was applied. Patient tolerated procedure well. Patient was given a dose of clindamycin here. Patient was given a prescription for clindamycin. Patient was instructed to follow-up with his primary care physician in 5 to 7 days. Patient understood and was agreeable with the plan. All questions were answered. Procedures Lacerations Distal phalanx right index finger: Length: 2.5 cm Depth: Sub Q Shape: Linear Prep: Sterile Conditions and Chlorhexadine Laceration repair: Digital block, Irrigated, Lidocaine, Skin sutures and Wound explored Irrigated (ml): 150 Number of Sutures/Farrell: 8 Suture Information: Vicryl, Ethilon, Simple, 4-0 and 5-0 Discharge Plan Triage Chief Complaint: Laceration ED Provider: Adolfo Mccormick Dx/Rx/DC Orders Clinical Impression: Open fracture of distal phalanx of right index finger, Laceration of right index finger Instructions: ED Fracture, Finger, Open, ED Laceration, Hand: All Closures Prescriptions: New clindamycin HCl [Cleocin HCl] 300 mg capsule 300 mg PO Q6H Qty: 40 0RF No Action folic acid 1 mg tablet 1 mg PO DAILY fluticasone furoate-vilanterol 200-25 mcg/dose blister with device INHALATION methotrexate sodium 2.5 mg tablet PO pramipexole 0.25 mg tablet 0.25 mg PO QHS budesonide 0.25 mg/2 mL suspension for nebulization 0.25 mg inhalation BID PRN montelukast 10 mg tablet 10 mg PO QHS ipratropium bromide 21 mcg (0.03 %) spray,non-aerosol 1 spray intranasal BID clobetasol 0.05 % solution topical Patient Comments: PLEASE SEE ATTACHED FOR DETAILED DIRECTIONS Primary Care Provider: Kaden Diamond Referrals: Kaden Diamond MD [Primary Care Provider] - 7 Days for suture removal Print Language: Irish Disposition Disposition: Home, Self Care
[2024-04-05] MEDS: Lidocaine 1% (20 ml mdv) 20 ML Vial INFILT (12:37)
--- NOTE | 2024-04-05 12:40 | RAD_ITS ---
STUDY: X-RAY - RIGHT HAND, ATTENTION INDEX FINGER REASON FOR EXAM: Male, 58 years old. Injury/Pain TECHNIQUE: 3 view(s) of the finger were obtained. COMPARISON: None. FINDINGS: Normal metacarpal head. Normal metacarpophalangeal joint. Normal proximal phalanx. Normal middle phalanx. Nondisplaced comminuted fracture of the tuft of the distal phalanx of the index finger with overlying soft tissue laceration and swelling. Normal proximal interphalangeal joint. Normal distal interphalangeal joint. RAD/Finger(s) Min 2 Views IMPRESSION: Nondisplaced, fracture of the tuft of the distal phalanx of the index finger with overlying soft tissue laceration and swelling. Electronically Signed: Reji Guillen MD at 13:02 EDT ,
[2024-04-05] MEDS: Clindamycin 900 MG/50 ML BAG 75 MG IV (12:46)
[2024-04-05] MEDS: Diphth,Pertuss(Acell),Tet Vac 0.5 ML Vial IM (12:46)
--- NOTE | 2024-04-05 15:49 | CHAPLAIN ---
Type of Pastoral Visit _x__ Initial Visit ___ Follow-up Visit ___ On-call Visit ___ General Patient Visit ___ Spiritual Assessment ___ Family Conference ___ Bereavement ___ Rapid Response ___ Code Blue ___ Other (describe below) Pastoral Care Referral From ___ Patient _x__ Family ___ Nurse ___ Physician ___ Automobile Appraiser ___ Radial Saw Operator ___ Other (describe below) Sacrament/Intervention _x__ Active listening ___ Anointing ___ Scientology ___ Bereavement ___ Communion ___ Tiesha exploration ___ _x__ Life review _x__ Prayer ___ Reconciliation ___ Sacrament of Sick _x__ Supportive presence ___ Wedding ___ Other (describe below) Pastoral Comments
== END 2024-04-05 16:01 | disposition home or self-care (01) ==
PROVIDERS: Emergency Provider Emergency Medicine; PCP Internal Medicine; Visit Provider Emergency Medicine
DX: S62.660B Nondisplaced fracture of distal phalanx of right index finger, initial encounter for open fracture (principal); Z96.649 Presence of unspecified artificial hip joint; Z23 Encounter for immunization; S61.310A Laceration without foreign body of right index finger with damage to nail, initial encounter; W23.0XXA Caught, crushed, jammed, or pinched between moving objects, initial encounter
CPT/HCPCS: 12001; 73140; 90715; 96365; 99283; A4216

== ENCOUNTER → 2024-04-21 | Outpatient (CLI) | payer BC, SELFPAY ==
[2024-04-21 17:52] LABS: Absolute Lymphocyte Count 1.75 X10^3/uL (0.83-4.51); Absolute Neutrophil Count 5.6 X10^3/uL (2.0-7.7); Basophil# 0.07 X10^3/uL; Basophil% 0.8 % (0-1); Eosinophil# 0.28 X10^3/uL; Eosinophils% 3.2 % (0-5); Hematocrit 44.6 % (40-54); Hemoglobin 15.4 g/dL (13.0-16.5); Lymphocyte # 1.75 X10^3/ul (0.83-4.51); Lymphocyte % 19.9 % (19-41); Mean Corp Hgb Conc 34.5 g/dL (32-36); Mean Corpuscular Hgb 32.2 pg (27.0-32.0); Mean Corpuscular Volume 93.1 fL (80-94); Mean Platelet Vol. 10.1 fl (6.2-12.0); Monocyte# 0.98 X10^3/uL; Monocyte% 11.2 % (0-10); NRBC Flagged by Analyzer 0 % (0-5); Neutrophil # 5.57 X10^3/uL (2.7-7.7); Neutrophil % 63.4 % (47-70); Platelet Count 266 K/mm3 (150-450); RBC Distribution Width CV 12.5 % (11.6-14.6); RBC Distribution Width SD 42.5 fl (35.1-43.9); Red Blood Count 4.79 M/mm3 (4.6-6.2); White Blood Count 8.8 K/mm3 (4.4-11.0)
[2024-04-21 18:03] LABS: ALB/GLOB Ratio 0.9 RATIO (0.9-2.4); AST(SGOT) 22 U/L (15-37); Alanine Aminotransfer ALT/SGPT 27 U/L (16-61); Albumin, Serum 3.5 g/dL (3.2-5.0); Alkaline Phosphatase 94 U/L (45-117); Anion Gap 6 (5-15); BUN 16 mg/dL (7-18); BUN/Creat Ratio 14.8 RATIO (10-20); Calcium,Total 8.8 mg/dL (8.5-10.1); Chloride 111 mmol/L (98-107); Creatinine, Serum 1.08 mg/dL (0.70-1.30); EST Glomerular Filtration Rate 75 mL/min (>60); Est Glom Filt Rate - Afr Amer 91 mL/min (>60); Globulin 4.1 g/dL (2.2-4.2); Glucose 129 mg/dL (74-106); Potassium 3.9 mmol/L (3.5-5.1); Protein, Total 7.6 g/dL (6.4-8.2); Sodium Level 141 mmol/L (136-145)
== END | disposition home or self-care (01) ==
LOC: MTLAB 13:58
PROVIDERS: PCP Internal Medicine; Referring Provider Internal Medicine Rheumatology; Visit Provider Internal Medicine Rheumatology
DX: L40.59 Other psoriatic arthropathy (principal); Z79.899 Other long term (current) drug therapy
CPT/HCPCS: 36415; 80053; 85025

== ENCOUNTER → 2024-07-15 | Outpatient (CLI) | payer BC, SELFPAY ==
[2024-07-15 10:30] LABS: Absolute Lymphocyte Count 1.73 X10^3/uL (0.83-4.51); Absolute Neutrophil Count 5.2 X10^3/uL (2.0-7.7); Basophil# 0.08 X10^3/uL; Basophil% 0.9 % (0-1); Eosinophil# 0.32 X10^3/uL; Eosinophils% 3.7 % (0-5); Hematocrit 44.2 % (40-54); Hemoglobin 15.1 g/dL (13.0-16.5); Lymphocyte # 1.73 X10^3/ul (0.83-4.51); Lymphocyte % 20.1 % (19-41); Mean Corp Hgb Conc 34.2 g/dL (32-36); Mean Corpuscular Hgb 32.3 pg (27.0-32.0); Mean Corpuscular Volume 94.6 fL (80-94); Monocyte# 1.26 X10^3/uL; Monocyte% 14.6 % (0-10); NRBC Flagged by Analyzer 0 % (0-5); Neutrophil # 5.17 X10^3/uL (2.7-7.7); Neutrophil % 60.1 % (47-70); Platelet Count 263 K/mm3 (150-450); RBC Distribution Width CV 13.5 % (11.6-14.6); RBC Distribution Width SD 46.6 fl (35.1-43.9); Red Blood Count 4.67 M/mm3 (4.6-6.2); White Blood Count 8.6 K/mm3 (4.4-11.0)
[2024-07-15 13:20] LABS: AST(SGOT) 23 U/L (15-37); Alanine Aminotransfer ALT/SGPT 39 U/L (16-61); Albumin, Serum 3.7 g/dL (3.2-5.0); Alkaline Phosphatase 99 U/L (45-117); Anion Gap 7 (5-15); BUN 17 mg/dL (7-18); BUN/Creat Ratio 19.3 RATIO (10-20); Calcium,Total 9.1 mg/dL (8.5-10.1); Chloride 110 mmol/L (98-107); Creatinine, Serum 0.88 mg/dL (0.70-1.30); EST Glomerular Filtration Rate 95 mL/min (>60); Est Glom Filt Rate - Afr Amer 115 mL/min (>60); Globulin 3.6 g/dL (2.2-4.2); Glucose 88 mg/dL (74-106); Potassium 3.7 mmol/L (3.5-5.1); Protein, Total 7.3 g/dL (6.4-8.2); Sodium Level 140 mmol/L (136-145)
== END | disposition home or self-care (01) ==
LOC: MTLAB 09:40
PROVIDERS: PCP Internal Medicine; Referring Provider Internal Medicine Rheumatology; Visit Provider Internal Medicine Rheumatology
DX: L40.59 Other psoriatic arthropathy (principal); Z79.899 Other long term (current) drug therapy
CPT/HCPCS: 36415; 80053; 85025

== ENCOUNTER → 2024-10-05 | Outpatient (CLI) | payer BC, SELFPAY ==
[2024-10-05 17:25] LABS: Absolute Lymphocyte Count 2.23 X10^3/uL (0.83-4.51); Absolute Neutrophil Count 5.1 X10^3/uL (2.0-7.7); Basophil# 0.08 X10^3/uL; Basophil% 0.9 % (0-1); Eosinophil# 0.24 X10^3/uL; Eosinophils% 2.8 % (0-5); Hematocrit 46.7 % (40-54); Hemoglobin 16.2 g/dL (13.0-16.5); Lymphocyte # 2.23 X10^3/ul (0.83-4.51); Lymphocyte % 25.8 % (19-41); Mean Corp Hgb Conc 34.7 g/dL (32-36); Mean Corpuscular Hgb 32.2 pg (27.0-32.0); Mean Corpuscular Volume 92.8 fL (80-94); Mean Platelet Vol. 9.6 fl (6.2-12.0); Monocyte# 0.99 X10^3/uL; Monocyte% 11.4 % (0-10); NRBC Flagged by Analyzer 0 % (0-5); Neutrophil # 5.09 X10^3/uL (2.7-7.7); Neutrophil % 58.8 % (47-70); Platelet Count 263 K/mm3 (150-450); RBC Distribution Width CV 13.2 % (11.6-14.6); Red Blood Count 5.03 M/mm3 (4.6-6.2); White Blood Count 8.7 K/mm3 (4.4-11.0)
[2024-10-05 17:45] LABS: AST(SGOT) 24 U/L (15-37); Alanine Aminotransfer ALT/SGPT 31 U/L (16-61); Albumin, Serum 3.9 g/dL (3.2-5.0); Alkaline Phosphatase 93 U/L (45-117); Anion Gap 6 (5-15); BUN 16 mg/dL (7-18); Calcium,Total 9.3 mg/dL (8.5-10.1); Chloride 107 mmol/L (98-107); EST Glomerular Filtration Rate 82 mL/min (>60); Est Glom Filt Rate - Afr Amer 99 mL/min (>60); Globulin 3.9 g/dL (2.2-4.2); Glucose 95 mg/dL (74-106); Potassium 3.6 mmol/L (3.5-5.1); Protein, Total 7.8 g/dL (6.4-8.2); Sodium Level 139 mmol/L (136-145)
== END | disposition home or self-care (01) ==
LOC: MTLAB 14:09
PROVIDERS: PCP Internal Medicine; Referring Provider Internal Medicine Rheumatology; Visit Provider Internal Medicine Rheumatology
DX: L40.59 Other psoriatic arthropathy (principal); Z79.899 Other long term (current) drug therapy
CPT/HCPCS: 36415; 80053; 85025

== ENCOUNTER → 2024-12-29 | Outpatient (CLI) | payer BC, SELFPAY ==
[2024-12-29 15:27] LABS: Absolute Lymphocyte Count 1.97 X10^3/uL (0.83-4.51); Absolute Neutrophil Count 5.1 X10^3/uL (2.0-7.7); Basophil# 0.09 X10^3/uL; Eosinophil# 0.28 X10^3/uL; Eosinophils% 3.2 % (0-5); Hematocrit 45.5 % (40-54); Hemoglobin 15.8 g/dL (13.0-16.5); Lymphocyte # 1.97 X10^3/ul (0.83-4.51); Lymphocyte % 22.6 % (19-41); Mean Corp Hgb Conc 34.7 g/dL (32-36); Mean Corpuscular Hgb 32.6 pg (27.0-32.0); Mean Platelet Vol. 10.1 fl (6.2-12.0); Monocyte# 1.25 X10^3/uL; Monocyte% 14.3 % (0-10); NRBC Flagged by Analyzer 0 % (0-5); Neutrophil # 5.07 X10^3/uL (2.7-7.7); Neutrophil % 58.1 % (47-70); Platelet Count 249 K/mm3 (150-450); RBC Distribution Width CV 12.9 % (11.6-14.6); RBC Distribution Width SD 44.2 fl (35.1-43.9); Red Blood Count 4.84 M/mm3 (4.6-6.2); White Blood Count 8.7 K/mm3 (4.4-11.0)
[2024-12-29 16:13] LABS: ALB/GLOB Ratio 1.3 RATIO (0.9-2.4); AST(SGOT) 26 U/L (<=37); Alanine Aminotransfer ALT/SGPT 25 U/L (<=46); Albumin, Serum 4.2 g/dL (3.5-5.0); Alkaline Phosphatase 82 U/L (40-129); Anion Gap 11 (5-15); BUN 18 mg/dL (4-19); BUN/Creat Ratio 16.8 RATIO (10-20); Calcium,Total 9.1 mg/dL (7.6-11.0); Carbon Dioxide 23.5 mmol/L (21.0-32.0); Chloride 105 mmol/L (98-108); Creatinine, Serum 1.06 mg/dL (0.70-1.20); EST Glomerular Filtration Rate 82 (>60); Globulin 3.1 g/dL (2.2-4.2); Glucose 96 mg/dL (70-99); Potassium 4.3 mmol/L (3.3-5.1); Protein, Total 7.3 g/dL (5.9-8.4); Sodium Level 139 mmol/L (133-145); Total Bilirubin 0.31 mg/dL (0.00-1.30)
== END | disposition home or self-care (01) ==
LOC: MTLAB 12:51
PROVIDERS: PCP Internal Medicine; Referring Provider Internal Medicine Rheumatology; Visit Provider Internal Medicine Rheumatology
DX: L40.59 Other psoriatic arthropathy (principal); Z79.899 Other long term (current) drug therapy; L40.8 Other psoriasis
CPT/HCPCS: 36415; 80053; 85025

== ENCOUNTER → 2025-03-27 | Outpatient (CLI) | payer BC, SELFPAY ==
[2025-03-27 15:39] LABS: Hematocrit 45.8 % (40-54); Hemoglobin 15.5 g/dL (13.0-16.5); Immature Granulocytes Count 0.030 X10^3/uL (0.0-0.0); Mean Corp Hgb Conc 33.8 g/dL (32-36); Mean Corpuscular Volume 95.4 fL (80-94); Mean Platelet Vol. 10.4 fl (6.2-12.0); NRBC Flagged by Analyzer 0 % (0-5); Platelet Count 244 K/mm3 (150-450); RBC Distribution Width CV 13.4 % (11.6-14.6); RBC Distribution Width SD 47.0 fl (35.1-43.9); Red Blood Count 4.80 M/mm3 (4.6-6.2); White Blood Count 6.4 K/mm3 (4.4-11.0)
[2025-03-27 18:50] LABS: AST(SGOT) 32 U/L (<=37); Alanine Aminotransfer ALT/SGPT 32 U/L (<=46); Albumin, Serum 4.2 g/dL (3.5-5.0); Alkaline Phosphatase 92 U/L (40-129); Anion Gap 10 (5-15); BUN 19 mg/dL (4-19); BUN/Creat Ratio 14.2 RATIO (10-20); Calcium,Total 9.2 mg/dL (7.6-11.0); Carbon Dioxide 23.4 mmol/L (21.0-32.0); Chloride 109 mmol/L (98-108); Globulin 2.9 g/dL (2.2-4.2); Glucose 135 mg/dL (70-99); Potassium 4.1 mmol/L (3.3-5.1)
== END | disposition home or self-care (01) ==
PROVIDERS: PCP Internal Medicine; Referring Provider Internal Medicine Rheumatology; Visit Provider Internal Medicine Rheumatology
DX: L40.59 Other psoriatic arthropathy (principal); Z79.899 Other long term (current) drug therapy
CPT/HCPCS: 36415; 80053; 85025

== ENCOUNTER → 2025-05-26 | Outpatient (CLI) | payer BC, SELFPAY ==
[2025-05-26 15:32] LABS: Hematocrit 44.6 % (40-54); Hemoglobin 15.6 g/dL (13.0-16.5); Immature Granulocytes Count 0.100 X10^3/uL (0.0-0.0); Mean Corp Hgb Conc 35.0 g/dL (32-36); Mean Corpuscular Volume 93.1 fL (80-94); Mean Platelet Vol. 10.2 fl (6.2-12.0); NRBC Flagged by Analyzer 0 % (0-5); Platelet Count 258 K/mm3 (150-450); RBC Distribution Width CV 13.3 % (11.6-14.6); RBC Distribution Width SD 45.2 fl (35.1-43.9); Red Blood Count 4.79 M/mm3 (4.6-6.2); White Blood Count 8.7 K/mm3 (4.4-11.0)
[2025-05-26 16:35] LABS: AST(SGOT) 31 U/L (<=37); Alanine Aminotransfer ALT/SGPT 34 U/L (<=46); Albumin, Serum 4.2 g/dL (3.5-5.0); Alkaline Phosphatase 82 U/L (40-129); Anion Gap 15 (5-15); BUN 17 mg/dL (4-19); BUN/Creat Ratio 16.7 RATIO (10-20); Calcium,Total 9.1 mg/dL (7.6-11.0); Carbon Dioxide 20.5 mmol/L (21.0-32.0); Chloride 102 mmol/L (98-108); Globulin 3.1 g/dL (2.2-4.2); Glucose 128 mg/dL (70-99); Potassium 3.7 mmol/L (3.3-5.1)
== END | disposition home or self-care (01) ==
LOC: MTLAB 14:04
PROVIDERS: PCP Internal Medicine; Referring Provider Internal Medicine Rheumatology; Visit Provider Internal Medicine Rheumatology
DX: L40.59 Other psoriatic arthropathy (principal); Z79.899 Other long term (current) drug therapy
CPT/HCPCS: 36415; 80053; 85025

== ENCOUNTER 2025-06-17 17:24 | Emergency (ER) | payer BC, SELFPAY ==
--- OUTSIDE RECORDS SUMMARY | 2025-06-14 14:56 | XMS RPT_ITS ---
Author Name Auto Generated Organization OHIP Care Team Providers Care Senior Medical Transcriptionist Name Role Phone IVANIA ALABRRAN Attending Unavailable DIAMOND, KADEN Primary Care Unavailable DIAMOND, KADEN Primary Care Unavailable DIAMOND, KADEN Primary Care Unavailable KARL NOLASCO Referring Unavailable KARL NOLASCO Attending Unavailable KARL NOLASCO Attending Unavailable ANDREA, KARL Admitting Unavailable DIAMOND, KADEN Primary Care Unavailable DIAMOND, KADEN Primary Care Unavailable IVANIA ALBARRAN Attending Unavailable DIAMOND, KADEN Primary Care Unavailable ANDREAKARL STAHL Attending Unavailable DIAMOND, BRE Attending Unavailable DIAMOND, BRE Primary Care Unavailable PROBLEMS DATE TYPE CONDITION / CODE ATTENDING STATUS [facility] 05/09/2025 Admitting Diagnosis Traumatic rupture of unspecified radial collateral ligament, initial encounter / S53.20XA(ICD-10) IVANIA ALBARRAN Active [facility] 05/02/2025 Admitting Diagnosis Other specified postprocedural states / Z98.890(ICD-10) KARL NOLASCO Active [facility] PROCEDURES No Procedure Records Found RESULTS OFFICE VISIT Observed: 05/16/2025 2:30 PM Status: COMPLETED Source: [facility] [id number] Rufina Mascorro [birth year] 70 M Date Provider Department Center 05/16/2025 [id number] ALBARRAN [facility] None No family history on file Level of Service:00493 HI POSTOP FOLLOW UP VISIT RELATED TO ORIGINAL PX Reason for Visit and Comments: Post-op [483] - Left index MCP radial collateral ligament reconstruction using palmaris longus autograft and Tenolysis EDC and EIP left index finger PROGRESS NOTE Observed: 05/16/2025 2:30 PM Status: COMPLETED Source: [facility] Subjective: Rufina is approximately 2 week(s) s/p Left index MCP radial collateral ligament reconstruction using palmaris longus autograft and Tenolysis EDC and EIP left index finger . Pain is minimal. He is taking tylenol for pain relief. He reports improvement in pain. The patient has been compliant with non-weight bearing restrictions in post operative splint. He denies numbness and tingling. He starts OT on . The patient returns today for repeat skin check and anticipated suture removal. He denies drainage from his incisions. He reports fluctuating swelling in the confines of his custom splint. He does report that the splint inhibits him from MCP motion of his ring and small fingers. His accompanies him today. He has been able to return to work light duty without any issues. He is scheduled to start occupational therapy closer to home next week. Objective: Ht 5' 9 (1.753 m) Wt 194 lb (88 kg) BMI 28.65 kg/m? Focused Exam of the LEFT Upper Extremity Skin: healing incision without evidence of infection Edema: moderate edema surrounding the hand, mildly increased in areas surrounding the custom splint straps Palpation: tender to palpation over the surgical sites as expected postoperatively ROM: LEFT index finger MCP (nl 0-45?H/90?) PIP (nl 0?/100?) DIP (nl 0?-80?) Tip to Palm EXTENSION -15? 0? 0? FLEXION 20? 70? 80? Not measured *(Passive values entered only if different than active; otherwise = AROM) Remaining fingers flex to palm excluding the middle finger which is approximately 2 cm tip to palm. Active wrist range of motion: full flexion/ full extension. Pronation full/ Supination full. Motor: Intact in the hand - able to fire AIN, PIN, and Ulnar nerves Sensation: to light touch is normal in the median, ulnar, and radial nerve distributions Perfusion: Brisk capillary refill in all 5 digits XRay: NONE Assessment Diagnosis Plan 1. Traumatic rupture of radial collateral ligament 2. S/P ligament repair Plan Rufina is healing his incision well without signs of infection underwent suture removal today without complication. He will continue with stockinettes under his hand-based custom splint. We did discuss that his splint can be adjusted to allow full MCP motion of his ring and small fingers but if this helps inhibit attempted use of his hand to avoid noncompliance, we can leave the custom splint as is. He can begin coming out of the splint to work active finger flexion and extension but is to avoid passive range of motion of the index MCP joint. Finger range of motion was encouraged within the confines of the splint. He will proceed with formal occupational therapy as scheduled and continue home exercises. The patient is to remain nonweightbearing through the hand. He was advised to avoid any type of pinching or gripping with his index finger as well as ulnar deviation of his MCP joint. This was demonstrated to the patient today in the office with good understanding. Expected recovery course was discussed with the patient. He will follow-up in 4 weeks. Their questions were answered and are comfortable with the plan. Weight Bearing: Non Weight Bearing Rehabilitation: OT/PT Rx given: To follow protocol. Dr. Nolasco/I will see Rufina back in 4 weeks to see how he is doing. Rufina knows to call the office with any questions or concerns in the interim. Future Imaging: NONE Electronically signed by Ivania Albarrna PA-C to Karl Nolasco M.D. Hand & Upper Extremity Surgery 05/16/2025 at 3:38 PM. (Please note that portions of this note may have been completed with a voice recognition program. Efforts were made to edit the dictations but occasionally words are mis-transcribed.) 36 Observed: 05/11/2025 11:36 AM Status: COMPLETED Source: [facility] Faxed and scanned to [employer] 36 Observed: 05/11/2025 10:50 AM Status: COMPLETED Source: [facility] Patient would like his PT/OT order to be faxed to [facility]. States that location is closer and easier for him. FAX: [phone] Attn: Vaishnavi Atkins PROGRESS NOTE Observed: 05/09/2025 4:00 PM Status: COMPLETED Source: [facility] [address] [facility] [address] Dept: [phone] Dept OCCUPATIONAL THERAPY Orthotic Only Evaluation Patient Name: Rufina Mascorro : 1965 Date of Service: 05/09/2025 Referring Provider: Karl Nolasco MD Diagnosis: Traumatic rupture of radial collateral ligament Visit Info / PMH Rufina Mascorro is a 59 y.o. male presents to clinic for a custom orthosis fabrication in order to protect healing structures. General Visit Information History of Injury: Pt is R hand dominant male. DOI: November 2023. ARNULFO: Injury involving a Steer ramming into his L hand. 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 DOS: 05/02 for RCL repair with PL graft with tenolysis EDC and EIP left index finger . Pt referred for custom orthosis and initiation of formal therapy. Reason for Referral: Custom [id number] MP extension with IP joints free to move-confirmed by Dr. Nolasco. Treatment Guidelines: Protocol in op note. Paper copy given to patient is a will continue with a hand specialist closer to their home. 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 Precautions/Red Flags: Gentle MP AROM initiated at week #2. No strengthening until the 8-week esteban per protocol. Subjective Chief complaints: 0/10 pain currently Knowledge of HEP/splint wear/care: Independent Knowledge of condition/precautions/restrictions: Independent Objective ROM: IP joints of digits 2-5 or WFL with the second digit perhaps slightly less than WFL which is to be expected. Sensation: Intact Observation of skin/wound: Sutures present. Clean, dry, and intact Treatment Therapeutic Activity # of Activities: 3 Therapeutic Activity 1: Background information gathered Therapeutic Activity 2: Education on anatomy/healing Activity 2 Comment: Review of protocol Therapeutic Activity 3: Splint education Activity 3 Comment: Wear and care Splinting Location: Left hand Type: Hand-based MP extension splint for digits 2-5 with IP's free to move. Splinting: Fabrication Splinting Education: Fitting, Donning, [place], Wear schedule, Precautions Splinting Comments: Patient satisfied with fit Assessment Patient appropriately fit with custom hand-based orthosis holding the MP joints of digits 2-5 and full extension with IP joints free to move in order to protect healing structures. Patient satisfied with fit and is independent with donning/doffing by end of session as well as has precautions. Patient knows to call the clinic with any questions, comments, and/or concerns. He will be attending his follow-up therapy at a location closer to his home. Plan & Recommendations Plan: d/c to HEP Goals Time Entry Total Treatment Time Start Time: 1603 Stop Time: 1700 Time Calculation (min): 57 min OT Therapeutic Procedures Time Entry Therapeutic Activity Time Entry: 10 Application of Splint Time Entry: 37 Vikas Tran OT OFFICE VISIT Observed: 05/09/2025 2:45 PM Status: COMPLETED Source: [facility] [id number] Rufina Mascorro [birth year] 70 M Date Provider Department Center 05/09/2025 [id number] ALBARRAN [facility] None No family history on file Level of Service:55499 HI POSTOP FOLLOW UP VISIT RELATED TO ORIGINAL PX Reason for Visit and Comments: Post-op [483] - Left index MCP radial collateral ligament reconstruction using palmaris longus autograft and Tenolysis EDC and EIP left index finger on 05/02/25 PROGRESS NOTE Observed: 05/09/2025 2:45 PM Status: COMPLETED Source: [facility] Subjective: Rufina is approximately 6 day(s) s/p Left index MCP radial collateral ligament reconstruction using palmaris longus autograft and Tenolysis EDC and EIP left index finger. Pain is minimal. He is taking Tylenol for pain relief. He reports improvement in pain. The patient has been compliant with non-weight bearing restrictions in post operative splint. He denies numbness and tingling. The patient is scheduled for a custom splint with occupational therapy today at 3:45. The patient feels that his hand is recovering well postoperatively. He has little to no discomfort. He comes out of his postoperative splint for the first time today and reports compliance with his postoperative restrictions. He would like to attend formal therapy closer to [place] where he lives. He is accompanied today by his . 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 He states that he mostly performs desk work and can avoid lifting through his operative hand. Objective: Ht 5' 9 (1.753 m) Wt 194 lb (88 kg) BMI 28.65 kg/m? Focused Exam of the LEFT Upper Extremity Skin: healing incision without evidence of infection Clinical Picture: Edema: mild edema surrounding the surgical site ROM: LEFT index finger MCP (nl 0-45?H/90?) PIP (nl 0?/100?) DIP (nl 0?-80?) Tip to Palm EXTENSION 0? 0? 0? FLEXION Not measured Not measured Not measured Not assessed *(Passive values entered only if different than active; otherwise = AROM) Motor: Intact in the hand - able to fire AIN, PIN, and Ulnar nerves Sensation: to light touch is normal in the median, ulnar, and radial nerve distributions Perfusion: Brisk capillary refill in all 5 digits XRay: NONE Assessment Diagnosis Plan 1. Traumatic rupture of radial collateral ligament External referral to Occupational Therapy 2. S/P ligament repair External referral to Occupational Therapy Plan I would like Rufina to be fit with custom splint with occupational therapy. He was temporarily placed back in his postoperative splint until his therapy appointment. He understands that he is to wear the splint at all times and only remove for hygiene purposes and at rest. At this time, he is to avoid any motion through his index MCP joint which was demonstrated to the patient today in the office. Finger range of motion was encouraged within the confines of the splint. A prescription to formal occupational therapy was provided to the patient. The patient is to remain nonweightbearing through the hand. Expected recovery course was discussed with the patient. I would like to see him back in 1 week for repeat skin check and anticipated suture removal. He was given a work release letter allowing him to return to light duty in 2 days as requested. Their questions were answered and are comfortable with the plan. Weight Bearing: Non Weight Bearing Rehabilitation: OT/PT Rx given: To follow protocol. I will see Rufina back in 1 week to see how he is doing. Rufina knows to call the office with any questions or concerns in the interim. Future Imaging: NONE Electronically signed by Ivania Albarran PA-C to Karl Nolasco M.D. Hand & Upper Extremity Surgery 05/09/2025 at 3:04 PM. (Please note that portions of this note may have been completed with a voice recognition program. Efforts were made to edit the dictations but occasionally words are mis-transcribed.) 36 Observed: 05/03/2025 3:40 PM Status: COMPLETED Source: [facility] Fax successfully and paperwo rk scanned into the chart 36 Observed: 05/03/2025 12:08 PM Status: COMPLETED Source: [facility] Paperwork completed and fax pending awaiting confirmation HISTORY AND PHYSICAL NOTE Observed: 04/21 11:08 AM Status: COMPLETED Source: [facility] Comprehensive PreSurgical History and Physical Name: Rufina Mascorro : 1965 (Age-59 y.o.) Date of evaluation: 05/02/2025 Surgeon: Karl Nolasco MD Allergies[1] Weight: 88 kg (194 lb) BMI (Calculated): 28.64 HPI: Traumatic rupture of unspecified radial collateral ligament, initial encounter [S53.20XA] Severity: Moderate Duration: > one week Review of systems negative except for items below: Medical History[2] There are no active problems to display for this patient. Surgical History[3] Family History[4] Medications: @DIAGMEDLIST@ Social history and Laboratory Data: No results found for: HGB, HCT, PLT, WBC, PROTIME, INR, APTT, NA, K, BUN, CREATININE, GLUCOSE Tobacco Use History[5] Social History Substance and Sexual Activity Alcohol Use Yes Comment: LESS THAN ONCE A MONTH 1-2 DRINKS Social History Substance and Sexual Activity Drug Use Never BP 113/70 (BP Location: Right arm, Patient Position: Lying) Pulse 68 Temp 36.2 ?C (97.2 ?F) (Temporal) Resp 24 Wt 88 kg (194 lb) SpO2 93% BMI 28.65 kg/m? Physical Examination: Constitutional: No apparent distress, well nourished, and in stable condition. Cardiac: Regular rate and rhythm Abdomen: Soft and nonacute Pulmonary: Clear bilaterally and no wheezing Neuro: Moves extremities X4 with no tremors HEENT: No gross cranial nerve defects and anicteric sclera Skin: Skin warm and dry with no visible rashes Vascular: Adequate perfusion of extremities with no cyanosis Psych: Alert and oriented x3 with appropriate affect Lymphatics: No swelling of arms/hands with no pedal edema Neck: FROM with no JVD Additional Notes:None After review of the medical history and physical assessment, medications, allergies, patient's current medical condition, and labs, this patient is at acceptable risk for the planned surgical procedure and anesthestic at this outpatient surgical facility. Electronically signed by: EDY CAMPBELL APRN - CRNA, MD Date: 05/02/2025 at 3:40 PM [1] Allergies Allergen Reactions Ampicillin Other Rash Bee Venom Hives, Swelling and Unknown [2] Past Medical History: Diagnosis Date Asthma Delayed emergence from general anesthesia Osteoarthritis PONV (postoperative nausea and vomiting) Psoriatic arthritis (HCC) Restless leg [3] Past Surgical History: Procedure Laterality Date COLONOSCOPY HAND SURGERY Left 05/02/2025 index finger metacarpophalangeal radial collateral ligament reconstruction TENDON REPAIR Left FOOT TOTAL HIP ARTHROPLASTY Left [4] No family history on file. [5] Social History Tobacco Use Smoking Status Never Smokeless Tobacco Never NURSING NOTE Observed: 05/02/2025 11:00 AM Status: COMPLETED Source: [email or web address] Pt dressed with little eric t-Tolerated activity well. States he is ready to go home. NURSING NOTE Observed: 05/02/2025 10:49 AM Status: COMPLETED Source: [email or web address] Homegoing isntrucitons given to pt and spouse verbally and written. Both verbalize understanding, no questions at this time. Pt set up on side of cart-denies any dizziness,pain,nausea. [id number] Observed: 05/02/2025 10:17 AM Status: COMPLETED Source: [email or web address] Patient: Rufina Mascorro Procedure Summary Date: 05/02/25 Room / Location: [address] Operating Room Anesthesia Start: 728 Anesthesia Stop: 929 Procedure: LEFT INDEX FINGER METACARPOPHALANGEAL RADIAL COLLATERAL LIGAMENT RECONSTRUCTION USING PALMARIS LONGUS AUTOGRAFT (Left: Hand) Diagnosis: Traumatic rupture of unspecified radial collateral ligament, initial encounter Surgeons: Karl Nolasco MD Responsible Provider: No Anesthesiologist - Lucinda/MD Brian Anesthesia Type: TIVA, regional ASA Status: 2 Anesthesia Type: TIVA, regional Vitals Value Taken Time BP 120/79 05/02/25 10:10 Temp 36.4 ?C (97.5 ?F) 05/02/25 10:00 Pulse 72 05/02/25 10:16 Resp 20 05/02/25 10:16 SpO2 92 % 05/02/25 10:16 Vitals shown include unfiled device data. Anesthesia Post Evaluation Patient location during evaluation: PACU Patient participation: complete - patient participated Level of consciousness: alert Pain management: satisfactory to patient Airway patency: patent Dental Injury: no Cardiovascular status: acceptable, blood pressure returned to baseline and hemodynamically stable Respiratory status: acceptable and spontaneous ventilation Hydration status: euvolemic Nausea/Vomiting: controlled No notable events documented. Patient can be discharged once all PACU criteria has been met. NURSING NOTE Observed: 05/02/2025 10:17 AM Status: COMPLETED Source: [email or web address] Pt awake and drinking soda-t olerating well. ANESTHESIA NOTE Observed: 05/02/2025 10:15 AM Status: COMPLETED Source: [facility] Patient: Rufina Mascorro Procedure Summary Date: 05/02/25 Room / Location: [address] Operating Room Anesthesia Start: 728 Anesthesia Stop: 929 Procedure: LEFT INDEX FINGER METACARPOPHALANGEAL RADIAL COLLATERAL LIGAMENT RECONSTRUCTION USING PALMARIS LONGUS AUTOGRAFT (Left: Hand) Diagnosis: Traumatic rupture of unspecified radial collateral ligament, initial encounter Surgeons: Karl Nolasco MD Responsible Provider: No Anesthesiologist - Lucinda/MD Brian Anesthesia Type: TIVA, regional ASA Status: 2 Anesthesia Type: TIVA, regional Vitals Value Taken Time BP 120/79 05/02/25 10:10 Temp 36.4 ?C (97.5 ?F) 05/02/25 10:00 Pulse 74 05/02/25 10:14 Resp 18 05/02/25 10:14 SpO2 95 % 05/02/25 10:14 Vitals shown include unfiled device data. Anesthesia Post Evaluation Patient participation: complete - patient participated Level of consciousness: sleepy but arousable Pain management: satisfactory to patient Multimodal analgesia pain management approach Airway patency: patent Two or more strategies used to mitigate risk of obstructive sleep apnea Respiratory status: acceptable Cardiovascular status: acceptable Hydration status: acceptable No notable events documented. MIPS #430 PONV Patient received an inhalational anesthetic (4554F) Patient exhibits three or more risk factors for PONV (4556F) [facility] prophylactic Rx PONV anti-emtic agents of different classes preop and/or intraop (G9775) MIPS # 424 Perioperative Temperature Management Anesthesia time was 60 minutes or longer (4255F) Anesthesai administered was General (inhalational or TIVA) or Neuraxial block (X0424) At least one body temperature greater than 95.8F/35.5C achieved within the 30 mins immediately prior to or the 15 minutes immediately following anesthesia end time (G9771) MIPS #477 Multimodal Pain Management Not emergent case Patient was administered multimodal pain management (two or more drugs and/or interventions excluding systemic opioids) in the periopeartive period occurring at some time between 6 hours prior to anesthesia start time until discharged from PACU (G2148) MIPS #404 Anesthesiology Smoking Abstinence The patient is not a current smoker (e.g. cigarette, cigar, pipe, e-cigarette/vaping/marijuana) If no stop here (XX404) I completed my handoff to the receiving clinician during which we: 1. Identified the patient 2. Identified the responsible provider 3. Reviewed the pertinent medical history 4. Discussed the surgical course 5. Reviewed intra-op anesthesia management and issues during anesthesia 6. Set expectations for post-procedure period 7. Allowed opportunity for questions and acknowledgement of understanding. NURSING NOTE Observed: 05/02/2025 10:07 AM Status: COMPLETED Source: [email or web address] Pt opens eyes and answers qu estions appropriately. NURSING NOTE Observed: 05/02/2025 9:26 AM Status: COMPLETED Source: [email or web address] Pt received from OR via cart , spont. Resp. With NOODLE CATALYST MAKER in attendance. Placed on monitor. Monitor alarms on in PACU PROCEDURE NOTE Observed: 05/02/2025 8:05 AM Status: COMPLETED Source: [email or web address] Peripheral Block Time Out: 05/02/2025 7:11 AM Patient location during procedure: Procedural Start time: 05/02/2025 7:12 AM End time: 05/02/2025 7:18 AM Reason for block: at surgeon's request and post-op pain management Staffing Performed: ZULEYMA Resident/NOODLE CATALYST MAKER: Edy Campbell INVESTMENT ASSOCIATE - NOODLE CATALYST MAKER Josie Allen RN Preanesthetic Checklist Completed: patient identified, IV checked, site marked, risks and benefits discussed, surgical consent and timeout performed Region: Upper Extremities Primary: Supraclavicular Peripheral Block Patient position: supine Prep: ChloraPrep Patient monitoring: continuous pulse ox and heart rate O2: Room air Laterality: left Injection technique: single-shot Guidance: ultrasound guided -image retained in chart, tip of the needle identified by ultraound during injection. Local infiltration: lidocaine Infiltration strength: 1 % Dose: 3 mL Needle Needle: 22G X 80 mm Additional Notes Patient Position - Supine w/head elevated Nerve stimulating, Minimum current when twitches disappeared at 0.3mA Post Procedure - Patient tolerated procedure well. No complications noted05/02/2025 7:12 AM and midazolam (Versed) injection - IntraVENous 2 mg - 05/02/2025 7:12:00 AM Assessment Injection assessment: negative aspiration for heme, no paresthesia on injection, incremental injection, local visualized surrounding nerve on ultrasound and transient paresthesias Heart rate change: no Slow fractionated injection: yes Required Documentation: Relevant anatomy identified (Nerves, Vessels, Muscles), Negative for blood on aspiration, Local anesthetic injected incrementally with intermittent aspiration every 5 mL, Normal resistance with injection, Local anesthetic spread visualized around nerves or plane., No EKG changes noted, No symptoms of toxicity and No paresthesias reported by patient during injectionMedications midazolam (Versed) injection - IntraVENous 2 mg - 05/02/2025 7:12:00 [id number]-aakrmnhmzaa-szcamuskkrh (TAP) syringe - Injection 25 mL - 05/02/2025 7:12:00 AM PROCEDURE NOTE Observed: 05/02/2025 7:43 AM Status: COMPLETED Source: [facility] Airway Date/Time: 05/02/2025 7:34 AM Reason: scheduled General Information and Staff Patient location during procedure: Procedural Performed: SRNA Patient Condition Indications for airway management: anesthesia Patient position: sniffing Sedation level: Asleep Final Airway Details Preoxygenated: yes Final airway type: supraglottic airway Successful airway: Igel Size: 4 Number of attempts at approach: 1 OP NOTE Observed: 05/02/2025 7:29 AM Status: COMPLETED [facility] [address] [place] [address] Dept: [phone] Loc: [phone] Operative Report Patient Name: Rufina Mascorro Date of : 1965 Date of Surgery: 05/02/25 Preoperative Diagnosis: 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 Rufina Mascorro is a 59 y.o. year-old male who presents today for surgical intervention. I have discussed with him, preoperatively, the complications, limitations, expectations, alternatives, and risks of surgical intervention which he has demonstrated understanding. No guarantees were given or implied. After having all of his questions answered to his satisfaction, Mr. Rufina Mascorro has provided written informed consent to proceed. Please see previous notes for full operative risk discussion. Procedure: Rufina Mascorro was identified in the preoperative waiting area. His operative site was initialed and consent was reviewed. Final questions were answered. He was brought to the operating room and placed in the supine position. All bony prominences were well padded. The operative extremity was prepped and draped in the usual sterile fashion. A surgical timeout was then performed with the patient's identification, the procedure to be performed being reviewed, verification that the patient had received preoperative antibiotics if indicated, and verification of the correct surgical site. The patient's ASA was verified by the nurse superintendent mechanical and the anesthesia staff. Fire risk was assessed. An esmarch bandage was used to exsanguinate the limb and the tourniquet was inflated to 250mm Hg. A curvilinear incision was made over the dorsal radial aspect of the left index finger MCP joint. Full-thickness skin flaps were developed and the extensor mechanism clearly identified. The radial sagittal band was reflected with a 1 to 2 mm sleeve of EDC tendon. The EDC and EIP tendons were densely adherent to the underlying dorsal MCP capsule from his previous trauma. I had careful tenolysis was performed with scissor dissection and 15 blade scalpel in order to release peritendinous adhesions of both tendons to allow for normal tendinous excursion. Once this was complete I evaluated the radial collateral ligament. The ligament appeared to have ruptured from the metacarpal neck with thick dense scar tissue remaining. An oblique capsulotomy was performed from metacarpal neck to the base of the proximal phalanx. The proper radial collateral ligament origin and insertion was sharply elevated from the metacarpal neck and proximal phalanx respectively. I was able to access the joint which appeared healthy without chondral wear. Attention was then turned to the volar forearm. The palmaris longus tendon was harvested with 2 small transverse incisions. The tendon was whipstitched with 4 looped FiberWire for later reconstruction. Guidewires were placed in the metacarpal head at the origin of the RCL as well as the base of the proximal phalanx at the RCL insertion. A 3 mm cannulated drill bit was passed over the wires to create bone sockets. The far cortex was left intact. I then dunked the palmaris longus graft with a suture tape in the metacarpal neck socket and retrieved the suture limbs ulnarly through the skin using a Krunal needle. The graft was tensioned and a 3 mm tenodesis screw placed. With the MCP joint flexed and in slight radial deviation the graft was then dunked into the proximal phalanx bone socket with a similar technique. With maximum tension the second 3 mm tenodesis screw was placed. This restored excellent stability to the radial collateral ligament with full impingement free passive range of motion. The joint was augustina irrigated normal saline. The [place] RCL tissue was repaired in an imbricated fashion over top of the reconstruction using 3-0 FiberWire suture. The sagittal band was repaired using 3-0 FiberWire suture and the tourniquet plated. The wound was irrigated and saline hemostasis achieved with bipolar cautery and gentle compression. The skin was closed in layers followed by an MCP blocking splint. Mr. Rufina Mascorro was taken to the recovery room in stable condition. POST OPERATIVE PLAN Phase 1: Immediate Postoperative (Days 0-14) Splint Type: Forearm-based radial gutter splint Positioning: Wrist: ~20? extension MCP joint: ~45? flexion IP joints: free to move Purpose: Immobilize the MCP joint to protect the repair and reduce tension on the reconstructed ligament. Wear Schedule: Full-time wear, including sleep. Remove only for hygiene under supervision. Phase 2: Early Mobilization (Weeks 2-4) Splint Transition: Switch to a custom thermoplastic radial gutter orthosis or MP extension splint Daytime Use: May begin protected AROM of MCP joint in flexion/extension only. Nighttime Use: Continue splinting to prevent stress on the repair. Shashi Loop Option: Introduce wide shashi loop splint during the day to allow controlled motion while preventing ulnar deviation. Phase 3: Intermediate Recovery (Weeks 5-8) Splinting Strategy: Daytime: Continue shashi loop splint for protection during light activity. Nighttime: May continue MP extension splint if instability or pain persists. Goal: Gradual increase in MCP joint motion while maintaining ligament integrity. Phase 4: Late Recovery (Weeks 8-12) Discontinue Splints: If MCP joint is stable and pain-free. Functional Splinting: Optional use of shashi loop during high-risk activities (e.g., gripping, lifting). Therapy Focus: Strengthening and proprioception. Outpatient Follow-up XRays: None Karl Nolasco MD 05/02/2025 , 9:25 AM HISTORY AND PHYSICAL NOTE Observed: 04/21 7:25 AM Status: COMPLETED Source: [facility] Pre-Surgical History and Physical Name: Rufina Mascorro : 1965 (Age-59 y.o.) Date of Service: Pt seen/examined on 05/02/2025 Chief Complaint: 59 y.o. male who we are asked to see/evaluate Rufina Mascorro for pre-procedure evaluation prior to Procedure Information Date/Time: 05/02/25 2776 Procedure: LEFT INDEX FINGER METACARPOPHALANGEAL RADIAL COLLATERAL LIGAMENT RECONSTRUCTION USING PALMARIS LONGUS AUTOGRAFT (Left: Hand) - 120 minutes total Location: [address] Operating Room Surgeons: Karl Nolasco MD History Of Present Illness: HPI: Pt here for LEFT INDEX FINGER METACARPOPHALANGEAL RADIAL COLLATERAL LIGAMENT RECONSTRUCTION USING PALMARIS LONGUS AUTOGRAFT BP 118/74 Pulse 54 Temp 36.2 ?C (97.2 ?F) (Temporal) Resp 16 Wt 194 lb (88 kg) SpO2 94% BMI 28.65 kg/m? Medical History[1] There are no active problems to display for this patient. Surgical History[2] Family History[3] Medications: Prior to Admission medications Medication Sig Start Date End Date Taking? Authorizing Provider Keyla Ellipta 100-25 MCG/ACT aerosol powder Inhale. Yes Historical Provider, fexofenadine (Rachell) 180 MG tablet Take 180 mg by mouth Daily with lunch. Yes Historical Provider, folic acid (Folvite) 1 MG tablet Take 2 mg by mouth daily. Yes Historical Provider, rOPINIRole (Requip) 0.25 MG tablet Take 0.5 mg by mouth Nightly. Yes Historical Provider, clindamycin (Cleocin) 300 MG capsule Take 300 mg by mouth in the morning and 300 mg at noon and 300 mg in the evening and 300 mg before bedtime. Historical Provider, methotrexate 2.5 MG tablet Take 6 tablets by mouth 1 (one) time per week . TAKES ON THURSDAY Historical Provider, montelukast (Singulair) 10 MG tablet Take 1 tablet by mouth Nightly. Patient not taking: Reported on 05/02/2025 12/15/22 Historical Provider, predniSONE (Deltasone) 10 MG tablet Take 10 mg by mouth Daily as needed. Patient not taking: Reported on 05/02/2025 Historical Provider, Social history and Laboratory Data: Tobacco Use History[4] Social History Substance and Sexual Activity Alcohol Use Yes Comment: LESS THAN ONCE A MONTH 1-2 DRINKS Social History Substance and Sexual Activity Drug Use Never No results found for: WBC, HGB, HCT, MCV, PLT No results found for: NA, K, CL, CO2, BUN, CREATININE, GLUCOSE, CALCIUM, PROT, BILITOT, ALKPHOS, AST, ALT, LABGLOM, AGRATIO, GLOB Review of systems negative except for what is noted in HPI and medical history. See Anesthesia Pre-op on the Day of Surgery for the completed Physical Exam. ASSESSMENT/PLAN: 1) LEFT INDEX FINGER METACARPOPHALANGEAL RADIAL COLLATERAL LIGAMENT RECONSTRUCTION USING PALMARIS LONGUS AUTOGRAFT Electronically signed by: Bridger Justice PA-C, Date: 05/02/2025 at 7:25 AM [1] Past Medical History: Diagnosis Date Asthma Delayed emergence from general anesthesia Osteoarthritis PONV (postoperative nausea and vomiting) Psoriatic arthritis (HCC) Restless leg [2] Past Surgical History: Procedure Laterality Date COLONOSCOPY TENDON REPAIR Left FOOT TOTAL HIP ARTHROPLASTY Left [3] No family history on file. [4] Social History Tobacco Use Smoking Status Never Smokeless Tobacco Never ANESTHESIA NOTE Observed: 05/02/2025 7:03 AM Status: COMPLETED Source: [facility] Patient: Rufina Mascorro Procedure Information Date/Time: 05/02/25729 Procedure: LEFT INDEX FINGER METACARPOPHALANGEAL RADIAL COLLATERAL LIGAMENT RECONSTRUCTION USING PALMARIS LONGUS AUTOGRAFT (Left: Hand) - 120 minutes total Location: [address] Operating Room Surgeons: Karl Nolasco MD Relevant Problems No relevant active problems Past Medical History: Past Medical History: No date: Asthma No date: Delayed emergence from general anesthesia No date: Osteoarthritis No date: PONV (postoperative nausea and vomiting) No date: Psoriatic arthritis (HCC) No date: Restless leg Past Surgical History: Past Surgical History: No date: COLONOSCOPY No date: TENDON REPAIR; Left Comment: FOOT No date: TOTAL HIP ARTHROPLASTY; Left Social History: TOBACCO: reports that he has never smoked. He has never used smokeless tobacco. ETOH: reports current alcohol use. Social History Substance and Sexual Activity Drug Use Never Family History: Family History[1] Screening: unknown Clinical information reviewed: Tobacco Allergies Meds Med Hx Surg Hx Fam Hx Soc Hx Physical Exam Airway Mallampati: II TM distance: >3 FB Neck ROM: full Mouth Open: normal Cardiovascular Dental dentition normal Pulmonary Abdominal Anesthesia Plan Any family history or previous problems with anesthesia no We discussed risks, benefits, alternatives and likelihood of success with the Patient and spouse. ASA 2 TIVA and regional Any family history or previous problems with anesthesia no The patient is not a current smoker. patient is NPO appropriate FLORIN Screening Labs: No results found for: WBC, HGB, HCT, MCV, PLT No results found for: SODIUM, NA, POTASSIUM, K, CHLORIDE, CL, CO2, BUN, CREATININE, GLUCOSE, CALCIUM, PROT, BILIRUBINFL, ALKPHOS, AST, ALT, EGFR, GLOB Pain Score: Scheduled No echocardiogram results found for the past 14 days No results found for this or any previous visit. Equipment Requests: Additional Equipment Requests [1] No family history on file. 29 Observed: 04/27/2025 1:43 PM Status: COMPLETED Source: [facility] Addended by: SAUL RODRIGUEZ on: 04/27/2025 01:43 PM Modules accepted: Orders 36 Observed: 04/27/2025 1:42 PM Status: COMPLETED Source: [facility] Custom splint order placed 36 Observed: 04/27/2025 1:39 PM Status: COMPLETED Source: [facility] Can you place another order for a custom splint? Please hand based radial maricarmen [id number] Observed: 04/18/2025 10:30 AM Status: COMPLETED Source: [facility] Medication List Accurate as of April 18, 2025 10:51 AM. Always use your most recent med list. Breo Ellipta 100-25 MCG/ACT aerosol powder Generic drug: Fluticasone Furoate-Vilanterol Medication Adjustments for Surgery: Take morning of surgery clindamycin 300 MG capsule Commonly known as: Cleocin Medication Adjustments for Surgery: Other (Comment) Notes to patient: NOT TAKING fexofenadine 180 MG tablet Commonly known as: Rachell Medication Adjustments for Surgery: Take night before surgery folic acid 1 MG tablet Commonly known as: Folvite Medication Adjustments for Surgery: Hold morning of surgery methotrexate 2.5 MG tablet Medication Adjustments for Surgery: Other (Comment) Notes to patient: TAKES ON THURSDAY montelukast 10 MG tablet Commonly known as: Singulair Medication Adjustments for Surgery: Take morning of surgery predniSONE 10 MG tablet Commonly known as: Deltasone Medication Adjustments for Surgery: Other (Comment) Notes to patient: OK TO TAKE IF NEEDED rOPINIRole 0.25 MG tablet Commonly known as: Requip Medication Adjustments for Surgery: Take night before surgery Additional Instructions: NO FOOD AFTER MIDNIGHT. YOU MAY HAVE 16 OUNCES OF CLEAR LIQUID 2 HOURS BEFORE SURGERY INCLUDING: WATER, BLACK COFFEE OR TEA-NO CREAM OR MILK APPLE OR CRANBERRY JUICE-NO ORANGE JUICE SODA SPORTS DRINKS You may take your prescription pain medication. You may take Tylenol for pain. NO Motrin, ibuprofen or Advil for 24 hours prior to surgery or longer if instructed by your surgeon. NO Aleve or Naprosyn for 5 days prior to surgery or longer if instructed by your surgeon. IF YOU TAKE BLOOD THINNERS OR ASPIRIN: DO NOT take aspirin or aspirin containing products for 5 days before surgery, or longer if instructed by your surgeon. Follow any instructions given to you by Dr. ANDREA WHITNEY AT YOUR PHARMACY AND SHOWER THE NIGHT BEFORE AND MORNING OF SURGERY BEFORE COMING TO THE HOSPITAL. FOLLOW DIRECTIONS WE DISCUSSED. No makeup, lotion, powder, deodorant or body spays. No hair products. Remove all jewelry and leave it at home. Wear loose comfortable clothing to go home in. You may brush your teeth morning of surgery. Do not wear contacts day of surgery. No marijuana (THC), smoking or alcohol for 24 hours prior to surgery. Please arrange for a responsible adult to drive you home after your surgery and that there is a responsible adult with you for 24 hours post discharge. If you have specific questions, please call your surgeon. You will receive a call the day before your surgery to verify your arrival time and date. You will be asked to arrive at least two hours prior to your scheduled surgery time. Please bring your [facility] folder and medication list with you day of surgery. We encourage you to write down any questions you may have for the surgeon, anesthesiologist, or other members of the surgical team and bring it with you the day of surgery. Please bring photo ID and insurance information. Ezio: Enter through Door number 2 Registration department is located here Patient will be escorted to [facility] Ezio does not open before 6am 36 Observed: 04/03/2025 4:20 PM Status: COMPLETED Source: [employer] Spoke with the pt. Clarified PAT and IPO time/day/location. Pt gave verbal understanding. 36 Observed: 04/03/2025 4:13 PM Status: COMPLETED [facility] I called and spoke with the patient, I told him no a custom splint is not needed prior surgery. He had questions about PAT and arrival time, I told him I send the message to Steffanie, she will probably call him tomorrow. 36 Observed: 04/03/2025 4:03 PM Status: COMPLETED Source: [facility] This patient called to ye vieyra a splint appointment. He said he thought he was supposed to get one pre surgery. He said that they were going to do one pre surgery before and the surgery was rescheduled? He said he also wasn't aware that he has an IPO appointment and OT appointment that was already scheduled. Can the office reach out to him and make him aware of that? Also if he needs a splint before the surgery we would need another order. Thank you! 36 Observed: 10/03/2024 1:20 PM Status: COMPLETED Source: [facility] Pt is rescheduled for 05/01 36 Observed: 10/03/2024 1:03 PM Status: COMPLETED Source: [facility] Brought to my attention cust om splint appt is scheduled for 11/07 while the surgery is scheduled Apr. I cancelled the appt for Oct but patient needs a custom splint appt for April. 36 Observed: 07/26/2024 11:29 AM Status: COMPLETED Source: [facility] PAT and Splint Order Signed. 36 Observed: 07/26/2024 8:10 AM Status: COMPLETED Source: [facility] Please enter PAT orders, ple ase Sx-05/02 @8a Consent- Left index finger MCP radial collateral ligament reconstruction using palmaris longus autograft Dx-(S53.20XA) Traumatic rupture of radial collateral ligament Anesthesia- MAC , Regional PAT- 04/18 @ 10:30a Surgery Checklist Details Calendar done Clearance no Case # [id number] Authorization Jess Armendariz [id number] clinicals PAT Day/Time done PAT Orders to Bridger done Splint yes IPO 05/08 @ 11a [facility] SURGERY SCHEDULING SLIP Patient: Rufina Mascorro Date of : 1965 Date of Surgery: Next available Day of Surgery: [facility] [place] Duration: 2hrs Type: Outpatient PAT: Yes - tele Med Clearance: No Anesthesia: MAC Block: Regional Position: Supine Table: Stretcher Arm Board: Roll-up arm table Radiology: Small C-Arm CPT Code: 84491 Consent: Left index finger MCP radial collateral ligament reconstruction using palmaris longus autograft FollowUp: Any P.A. in 5-7 days XRays: No OT Splint needed at first PO appointment: Yes - hand based radial gutter Special Requests Hand tray Arthrex 3mm tenodesis screws Krunal needles Looped 4-0 fiberwire 36 Observed: 07/25/2024 9:57 PM Status: COMPLETED Source: [facility] No need to see in office. Barbosa rgery form sent to Steffanie in separate TE 36 Observed: 07/22/2024 4:40 PM Status: COMPLETED Source: [facility] Name of caller: Rufina Mascorro Contact phone number: [phone] Relationship to Patient: patient Provider: Dr. Nolasco Practice: Ortho Chief Complaint/Reason for Call: Patient was requesting a call back, as he saw Dr. Nolasco on 05/09, he is wanting to go ahead with surgery. Please advise Best time of day caller can be reached: any Patient advised that office/PCP has 24-48 business hours to return their call: Yes CNPN Observed: 06/27/2024 12:00 AM Status: COMPLETED Source: [facility] Telephone ([email or web address]) RUFINA MASCORRO ([id number]) 1965 M Date Time Provider Department 06/27/24 KADEN DIAMOND INTMWS During your visit today, we recorded the following information about you: Judith Eason RN 06/27/2024 4:38 PM Signed Patient calling Dr. Diamond for advise. 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 Last treatment ended 06/17/24. Reports symptoms are returning. Reports loose stools, gas and bloating. Denies fever, abdominal pain nausea or vomiting. Eating healthy diet and taking probiotic. Uses [facility]. Please advise patient. Thank you. Kaden Diamond MD 06/29/2024 9:03 AM Signed Update on patient's condition/symptoms please. Rajiv Garcia, LIZ 06/29/2024 12:58 PM Signed Phoned patient and asked for update. Patient reports he is eating 4 lao yogarts a day now, instead of taking probiotic pill. Color of stools is darker now, and more formed. Mucous is gone from stools now. Having less stools now, only 1 stool today. Still has a lot of gas. No fever, nausea, vomiting, or abdominal pain. Kaden Diamond MD 06/29/2024 1:33 PM Signed Okay. There may be some irritable bowel for some time. Increase fiber. Return for liquid diarrhea. Rajiv Garcia RN 06/29/2024 4:42 PM Signed Left vm for patient to return call to nurse for provider's message. Mini Peña LPN 06/30/2024 9:38 AM Signed Left message to call office. 06/30/2024 9:38 AM CHASIDY Edwards M Robin, RN 06/30/2024 10:55 AM Signed Pt returned call and given provider's message below with verbalized understanding. Patient agreeable. Allergies As of Date: 06/27/2024 Noted Allergy Reaction AMPICILLIN 03/03/2006 bandaid [Other] 04/04/2009 2 - Rash bee stings [Other] 03/03/2006 12 - Shortness of Breath Seasonal Allergies [Other] 11/21/2006 Date Reviewed: 06/24/2024 Reviewed by: Roselyn Hdz LPN - Fully Assessed Reason for Visit: Patient Update [1234] Patient Question [9697] Prescriptions as of 06/30/2024 - rOPINIRole (REQUIP) 0.25 mg tablet Take 0.5 mg by mouth daily at bedtime. Take 1 to 2 tablets at bedtime. - BREO ELLIPTA 200-25 mcg/dose inhaler - fexofenadine (RACHELL ALLERGY) 180 mg tablet Take 1 tablet by mouth once daily. - methotrexate 2.5 mg tablet Take 2.5 mg by mouth one time only. 6 tablets once weekly - FOLIC ACID ORAL Take 2 tablets by mouth once daily. Problem List As Of Date 06/27/2024 Noted Resolved Chronic rhinitis [J31.0] 03/03/2006 TOXIC EFFECT VENOM [T63.91XA] 11/21/2006 Mild intermittent asthma with acute exacerbatio*10/21/2007 Osteoarthritis of hip [M16.9] 05/12/2013 Psoriasis [L40.9] 05/12/2013 Psoriatic arthritis (HCC) [L40.50] 09/21/2017 Clostridium difficile colitis [A04.72] 05/20/2024 06/24/2024 Encounter Status:Closed by Rajiv GARCIA on 06/30/24 PROGRESS Observed: 06/24/2024 11:41 AM Status: COMPLETED [id number] Author: KADEN DIAMOND MD Service: ? Author Type: Physician Type: Progress Notes Filed: 06/24/2024 13:13 Note Text: This note was created using [employer] Callriter. Subjective Patient presents with: Yearly Exam Immunizations: Flu vaccination Rufina Mascorro is a 58 year old male. He just recovered from C dificile colitis with repeat treatment completed. He was taking probiotics. His labs were mostly normal and CT of the abdomen and pelvis non specific. He gets allergy shots weekly. There are plans to do left index finger surgery in September and another hip replacement down the line. His medications are from his specialists: Dr. Bam Raines for asthma DrMarie Preciado for psoriatic arthritis and psoriasis. Dr. Levi Reyes, [facility]. Dr. Karl Nolasco, [facility] (hands) Dr. Robert Montoya, [facility], allergy. Review of Systems PAST MEDICAL HISTORY Diagnosis Date Chronic rhinitis 03/03/2006 Clostridium difficile colitis 05/20/2024 DJD (degenerative joint disease) of hip 05/12/2013 Dr. Moeller Mild intermittent asthma with acute exacerbation 10/21/2007 Osteoarthritis of hip 05/12/2013 Psoriasis 05/12/2013 Dr. Calloway Psoriatic arthritis (HCC) 09/21/2017 Dr. 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 Traumatic rupture of collateral ligament of left index finger 12/09/2023 [facility] PAST SURGICAL HISTORY Procedure Laterality Date ANKLE LEFT OP SURGERY Left 07/2015 COLONOSCOPY FLX DX W/COLLJ SPEC WHEN PFRMD 04/23/2020 Colonoscopy TOTAL HIP REPLACEMENT Left 11/28/2021 FAMILY HISTORY Problem Relation Age of Onset Cancer Mother 67 lung cancer Hypertension Mother Arthritis Mother psoriatic GI Father diverticulitis Heart Father GA @ 81 years COPD Father driscoll's lung GI Brother diverticulitis Hypertension Brother Genitourinary () Brother urethral stenosis Colon Cancer Paternal Grandfather Social History Tobacco Use Smoking status: Never Smokeless tobacco: Never Vaping Use Vaping status: Never Used Substance Use Topics Alcohol use: Yes Comment: occasional Drug use: No ALLERGIES Allergen Reactions Ampicillin Bandaid [Other] Rash Bee Stings [Other] Shortness of Breath Seasonal Allergies * Current Outpatient Medications Medication Sig rOPINIRole (REQUIP) 0.25 mg tablet Take 0.5 mg by mouth daily at bedtime. Take 1 to 2 tablets at bedtime. BREO ELLIPTA 200-25 mcg/dose inhaler fexofenadine (RACHELL ALLERGY) 180 mg tablet Take 1 tablet by mouth once daily. methotrexate 2.5 mg tablet Take 2.5 mg by mouth one time only. 6 tablets once weekly FOLIC ACID ORAL Take 2 tablets by mouth once daily. No current facility-administered medications for this visit. Objective BP 130/72 (BP Site: Left Arm, BP Position: Sitting, BP Cuff Size: Large Adult) Pulse 70 Temp 36.7 ?C (98.1 ?F) Resp 12 Ht 175.3 cm (5' 9) Wt 87.9 kg (193 lb 12.6 oz) SpO2 97% BMI 28.62 kg/m? Physical Exam HENT: Head: Normocephalic and atraumatic. Nose: Nose normal. No congestion or rhinorrhea. Mouth/Throat: Mouth: Mucous membranes are moist. Pharynx: Oropharynx is clear. No oropharyngeal exudate or posterior oropharyngeal erythema. Eyes: Extraocular Movements: Extraocular movements intact. Conjunctiva/sclera: Conjunctivae normal. Cardiovascular: Rate and Rhythm: Normal rate and regular rhythm. Heart sounds: No murmur heard. No gallop. Pulmonary: Effort: Pulmonary effort is normal. Breath sounds: Normal breath sounds. Abdominal: Palpations: Abdomen is soft. Tenderness: There is no abdominal tenderness. Musculoskeletal: General: No tenderness. Normal range of motion. Cervical back: Neck supple. Right lower leg: No edema. Left lower leg: No edema. Lymphadenopathy: Cervical: No cervical adenopathy. Skin: Findings: No lesion or rash. Neurological: General: No focal deficit present. Mental Status: He is alert. Assessment and Plan 1. Routine medical exam - ICD9: V70.0, ICD10: Z00.00 (primary diagnosis) - Counseled on healthy diet and regular exercise - Discussed need for and benefit of weight loss. BMI 28.62 kg/(m2) - Risks/benefits of prostate cancer screening discussed. screening PSA ordered - Counseled on limiting alcohol intake to 2 drinks per day - Patient counseled on and acknowledged vaccine benefits/risks/side effects; VIS provided: Influenza and Pneumococcal - Periodic eye exam recommended. 2. Need for influenza vaccination - ICD9: V04.81, ICD10: Z23 - INFLUENZA VACCINE, AGE 6MO-64YR, TRIVALENT (AFLURIA, FLULAVAL, FLUVIRIN, FLUZONE) 3. Screening for depression - ICD9: V79.0, ICD10: Z13.31 - DEPRESSION SCREENING 4. Encounter for screening examination for other mental health and behavioral disorders - ICD9: V79.8, ICD10: Z13.39 - ANXIETY SCREENING 5. Clostridium difficile colitis - ICD9: 008.45, ICD10: A04.72 Resolved. 6. Psoriatic arthritis (HCC) - ICD9: 696.0, ICD10: L40.50 Controlled. 7. Mild intermittent asthma with acute exacerbation - ICD9: 493.92, ICD10: J45.21 - Mild intermittent asthma stable - Continue current medications 8. Need for vaccination - ICD9: V05.9, ICD10: Z23 - PNEUMOCOCCAL VACCINE, 20 VALENT (PREVNAR 20) Kaden Diamond MD CNOV Observed: 06/24/2024 11:00 AM Status: COMPLETED Source: [facility] Office Visit (INTMWS) RUFINA MASCORRO ([id number]) 1965 M Date Time Provider Department 06/24/24 11:00 AM KADEN DIAMOND INTMWS During your visit today, we recorded the following information about you: Temperature Pulse Respiration Blood pressure 98.1 degrees 70/minute 12/minute 130/72 Weight Height 87.9 kg 1.753 m Kaden Diamond MD 06/24/2024 1:13 PM Signed This note was created using NoteWriter. Subjective Patient presents with: Yearly Exam Immunizations: Flu vaccination Rufina Mascorro is a 58 year old male. He just recovered from C dificile colitis with repeat treatment completed. He was taking probiotics. His labs were mostly normal and CT of the abdomen and pelvis non specific. He gets allergy shots weekly. There are plans to do left index finger surgery in September and another hip replacement down the line. His medications are from his specialists: Dr. Bam Raines for asthma Dr.. Catherine Preciado for psoriatic arthritis and psoriasis. Dr. Levi Reyes, [facility]. Dr. Karl Nolasco, [facility] (hands) Dr. Robert Montoya, [facility], allergy. Review of Systems PAST MEDICAL HISTORY Diagnosis Date Chronic rhinitis 03/03/2006 Clostridium difficile colitis 05/20/2024 DJD (degenerative joint disease) of hip 05/12/2013 Dr. Moeller Mild intermittent asthma with acute exacerbation 10/21/2007 Osteoarthritis of hip 05/12/2013 Psoriasis 05/12/2013 Dr. Calloway Psoriatic arthritis (HCC) 09/21/2017 Dr. 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 Traumatic rupture of collateral ligament of left index finger 12/09/2023 [facility] PAST SURGICAL HISTORY Procedure Laterality Date ANKLE LEFT OP SURGERY Left 07/2015 COLONOSCOPY FLX DX W/COLLJ SPEC WHEN PFRMD 04/23/2020 Colonoscopy TOTAL HIP REPLACEMENT Left 11/28/2021 FAMILY HISTORY Problem Relation Age of Onset Cancer Mother 67 lung cancer Hypertension Mother Arthritis Mother psoriatic GI Father diverticulitis Heart Father GA @ 81 years COPD Father driscoll's lung GI Brother diverticulitis Hypertension Brother Genitourinary () Brother urethral stenosis Colon Cancer Paternal Grandfather Social History Tobacco Use Smoking status: Never Smokeless tobacco: Never Vaping Use Vaping status: Never Used Substance Use Topics Alcohol use: Yes Comment: occasional Drug use: No ALLERGIES Allergen Reactions Ampicillin Bandaid [Other] Rash Bee Stings [Other] Shortness of Breath Seasonal Allergies * Current Outpatient Medications Medication Sig rOPINIRole (REQUIP) 0.25 mg tablet Take 0.5 mg by mouth daily at bedtime. Take 1 to 2 tablets at bedtime. BREO ELLIPTA 200-25 mcg/dose inhaler fexofenadine (RACHELL ALLERGY) 180 mg tablet Take 1 tablet by mouth once daily. methotrexate 2.5 mg tablet Take 2.5 mg by mouth one time only. 6 tablets once weekly FOLIC ACID ORAL Take 2 tablets by mouth once daily. No current facility-administered medications for this visit. Objective BP 130/72 (BP Site: Left Arm, BP Position: Sitting, BP Cuff Size: Large Adult) Pulse 70 Temp 36.7 ?C (98.1 ?F) Resp 12 Ht 175.3 cm (5' 9) Wt 87.9 kg (193 lb 12.6 oz) SpO2 97% BMI 28.62 kg/m? Physical Exam HENT: Head: Normocephalic and atraumatic. Nose: Nose normal. No congestion or rhinorrhea. Mouth/Throat: Mouth: Mucous membranes are moist. Pharynx: Oropharynx is clear. No oropharyngeal exudate or posterior oropharyngeal erythema. Eyes: Extraocular Movements: Extraocular movements intact. Conjunctiva/sclera: Conjunctivae normal. Cardiovascular: Rate and Rhythm: Normal rate and regular rhythm. Heart sounds: No murmur heard. No gallop. Pulmonary: Effort: Pulmonary effort is normal. Breath sounds: Normal breath sounds. Abdominal: Palpations: Abdomen is soft. Tenderness: There is no abdominal tenderness. Musculoskeletal: General: No tenderness. Normal range of motion. Cervical back: Neck supple. Right lower leg: No edema. Left lower leg: No edema. Lymphadenopathy: Cervical: No cervical adenopathy. Skin: Findings: No lesion or rash. Neurological: General: No focal deficit present. Mental Status: He is alert. Assessment and Plan 1. Routine medical exam - ICD9: V70.0, ICD10: Z00.00 (primary diagnosis) - Counseled on healthy diet and regular exercise - Discussed need for and benefit of weight loss. BMI 28.62 kg/(m2) - Risks/benefits of prostate cancer screening discussed. screening PSA ordered - Counseled on limiting alcohol intake to 2 drinks per day - Patient counseled on and acknowledged vaccine benefits/risks/side effects; VIS provided: Influenza and Pneumococcal - Periodic eye exam recommended. 2. Need for influenza vaccination - ICD9: V04.81, ICD10: Z23 - INFLUENZA VACCINE, AGE 6MO-64YR, TRIVALENT (AFLURIA, FLULAVAL, FLUVIRIN, FLUZONE) 3. Screening for depression - ICD9: V79.0, ICD10: Z13.31 - DEPRESSION SCREENING 4. Encounter for screening examination for other mental health and behavioral disorders - ICD9: V79.8, ICD10: Z13.39 - ANXIETY SCREENING 5. Clostridium difficile colitis - ICD9: 008.45, ICD10: A04.72 Resolved. 6. Psoriatic arthritis (HCC) - ICD9: 696.0, ICD10: L40.50 Controlled. 7. Mild intermittent asthma with acute exacerbation - ICD9: 493.92, ICD10: J45.21 - Mild intermittent asthma stable - Continue current medications 8. Need for vaccination - ICD9: V05.9, ICD10: Z23 - PNEUMOCOCCAL VACCINE, 20 VALENT (PREVNAR 20) Kaden Diamond MD Allergies As of Date: 06/24/2024 Noted Allergy Reaction AMPICILLIN 03/03/2006 bandaid [Other] 04/04/2009 2 - Rash bee stings [Other] 03/03/2006 12 - Shortness of Breath Seasonal Allergies [Other] 11/21/2006 Date Reviewed: 06/24/2024 Reviewed by: Roselyn Hdz LPN - Fully Assessed Reason for Visit: Yearly Exam [187] Immunizations [194] Cmt: Flu vaccination Primary Visit Diagnosis:Routine medical exam [Z00.00] Other Visit Diagnoses:Need for influenza vaccination [Z23] Screening for depression [Z13.31] Encounter for screening examination for other mental health and behavioral disorders [Z13.39] Clostridium difficile colitis [A04.72] Psoriatic arthritis (HCC) [L40.50] Mild intermittent asthma with acute exacerbation [J45.21] Need for vaccination [Z23] Order(s):INFLUENZA VACCINE, AGE 6MO-64YR, TRIVALENT (AFLURIA, FLULAVAL, FLUVIRIN, FLUZONE) [[id number]] Order #: [id number] DEPRESSION SCREENING [] Order #: [id number]: 1 ANXIETY SCREENING [] Order #: [id number]: 1 PNEUMOCOCCAL VACCINE, 20 VALENT (PREVNAR 20) [[id number]] Order #: [id number] Prescriptions as of 06/24/2024 - rOPINIRole (REQUIP) 0.25 mg tablet Take 0.5 mg by mouth daily at bedtime. Take 1 to 2 tablets at bedtime. - BREO ELLIPTA 200-25 mcg/dose inhaler - fexofenadine (RACHELL ALLERGY) 180 mg tablet Take 1 tablet by mouth once daily. - methotrexate 2.5 mg tablet Take 2.5 mg by mouth one time only. 6 tablets once weekly - FOLIC ACID ORAL Take 2 tablets by mouth once daily. Problem List As Of Date 06/24/2024 Noted Resolved Chronic rhinitis [J31.0] 03/03/2006 TOXIC EFFECT VENOM [T63.91XA] 11/21/2006 Mild intermittent asthma with acute exacerbatio*10/21/2007 Osteoarthritis of hip [M16.9] 05/12/2013 Psoriasis [L40.9] 05/12/2013 Psoriatic arthritis (HCC) [L40.50] 09/21/2017 Clostridium difficile colitis [A04.72] 05/20/2024 06/24/2024 Medications Discontinued During This Encounter Prescriptions - budesonide (PULMICORT) 0.5 mg/2 mL nebulizer solution (Discontinued) Use 0.5 mg via nebulizer once daily. - dicyclomine (BENTYL) 20 mg tablet (Discontinued) Take 20 mg by mouth three times a day as needed. Disposition: Return in about 1 year (around 06/24/2025). Follow-up and Disposition History for Encounter Date Provider Department Center 06/24/2024 [id number] DIAMOND [facility] Encounter Status:Closed by KADEN DIAMOND on 06/24/24 ALLERGIES DATE TYPE / CODE NAME / CODE REACTION SEVERITY SOURCE 04/04/2009 Miscellaneous Allergy/104042437(SNOMED CT) OTHER RASH [facility] 03/03/2006 DRUG INGREDI/919232477(SNOMED CT) AMPICILLIN [facility] ENCOUNTERS ADMIT/DISCHARGE ACCOUNT NUMBER ADMITTING ENCOUNTER CLASS LOCATION SOURCE 06/14/2025/06/14/20 [id number] Ambulatory Buildin [id number] [facility] 05/16/2025/05/16/20 25 [id number] Ambulatory Buildin [id number] [facility] 05/09/2025/05/09/20 25 [id number] Ambulatory Buildin [id number] [facility] 05/09/2025/05/09/20 [id number] Ambulatory Buildin [id number] [facility] 05/02/2025/05/02/20 25 [id number] KARL NOLASCO [id number] 04/18/2025/04/18/20 [id number] Ambulatory Buildin [id number] [facility] 06/24/2024/06/24/20 [id number] [facility] PAYERS ENCOUNTER GUARANTOR PAYER SUBSCRIBER SOURCE 06/14/2025 Primary Insurance:JAYDEN BLUE CROSSPolicy Number: [id number] Date:3378-73-70Heyy Name:Commercial RUFINA VASQUEZB: [id number] [place] [address] [facility] 05/16/2025 Primary Insurance:ANTHEM BLUE CROSSPolicy Number: [id number] Date:6618-72-10Ejxv Name:Commercial RUFINA VASQUEZB: [id number] [place] [address] [facility] 05/09/2025 Primary Insurance:ANTHEM BLUE CROSSPolicy Number: [id number] Date:2747-59-48Aqeg Name:Commercial RUFINA VASQUEZB: [id number] [place] [address] [facility] 05/09/2025 Primary Insurance:ANTHEM BLUE CROSSPolicy Number: [id number] Date:4398-76-36Wysd Name:Commercial RUFINA VASQUEZB: [id number] [place] [address] [facility] 05/02/2025 Primary Insurance:ANTHEM BLUE CROSSPolicy Number: [id number] Date:6483-78-47Bvsw Name:Commercial RUFINA VASQUEZB: [id number] [place] [address] [facility] 04/18/2025 Primary Insurance:ANTHEM BLUE CROSSPolicy Number: [id number] Date:4337-16-40Zlhr Name:Commercial RUFINA VASQUEZB: [id number] [place] [address] [facility] 06/24/2024 Primary Insuranc e:BLUE ACCESS PPOPolicy Number: [id number] Date:6138-98-98Fcut Name:Philip SKAGGS: [id number] [place] [address] [facility]
[2025-06-17 17:24] VITALS: BP 151/99; PULSE 96; RESP 18; TEMP 36.6; O2SAT 98; BMI 29.7
--- NOTE | 2025-06-17 17:51 | CM.ED ---
Social Work Date of referral: 06/17/25 Reason for referral: Advanced Care Directives (ACD's) not on file Referred by: Social Work identification Patient provided consent for social work visit. Assistant Professor Of Marine Biology asked patient to bring in a copy of the ACD's which patient was agreeable to. Yessi Thao, MANAGER SHIP, BLADE ALIGNER
--- NOTE | 2025-06-17 17:54 | EDS_ITS ---
HPI History of Present Illness Chief Complaint: Laceration Narrative Narrative: Patient is a 59-year-old male who presents to the emergency department chief complaint of cut to his right finger. According to the patient he was attempting to open a hay hawk when a knife slipped and cut his finger. He states that his tetanus shot is up-to-date was recently updated. He noted that since it was continuously bleeding they came here for further evaluation management. [facility] Medical History Laceration of left forearm URI (upper respiratory infection) Acute pharyngitis, unspecified Arthritis Knee pain Home Medications ?Medication ?Instructions ?Recorded ?Last Taken ?Type folic acid 1 mg tablet 1 mg PO DAILY 07/31/20 Unkno wn History fluticasone furoate 200 inhalation 11/16/20 Unknown History mcg-vilanterol 25 mcg/dose inhalation powder methotrexate sodium 2.5 mg tablet mg PO 11/16/20 Unkno wn History pramipexole 0.25 mg tablet 0.25 mg PO QHS 08/28/22 Unk nown History budesonide 0.25 mg/2 mL suspension 0.25 mg inhalation BID PRN 07/03/23 Unknown History for nebulization clobetasol 0.05 % scalp solution topical 12/10/23 Unkn own History ipratropium bromide 21 mcg (0.03 1 spray intranasal BI D 12/10/23 Unknown History %) nasal spray montelukast 10 mg tablet 10 mg PO QHS 12/10/23 Unknow n History dicyclomine 20 mg tablet 20 mg PO TID PRN abdominal p ain 05/13/24 Unknown Rx #20 tabs Allergy/AdvReac Type Severity Reaction Status Date / Time bee venom protein (honey bee) Allergy Mild unknown Verified 06/17/25 17:24 Latex, Natural Rubber Allergy Mild unknown Verified 06/17/25 17:24 ampicillin Allergy Unknown Other Verified 06/17/25 17:24 Surgical History Hx of foot surgery History of total hip replacement Social History Smoking Status: Never smoker ROS ROS ED ROS Narrative Neurological: Denies any numbness, weakness, tingling Skin: Complains of cut to the right index finger EXAM Physical Exam Narrative Exam Narrative: General: Patient is lying in bed rest comfortably did not appear to be acute distress Head: Atraumatic, normocephalic Eyes: PERRL bilaterally, EOMI bilaterally Cardiovascular: Regular rate Extremities: Radial pulses +2/4 in the bilateral extremities, +5/5 strength noted in the bilateral lower extremities, patient has full flexion extension of his fingers in his right hand Neurological: Patient has sensation grossly intact in the median, ulnar and radial nerve distribution bilaterally Skin: Patient has a chunk of skin missing out of the right index finger with no active bleeding noted there is no laceration to be repaired Const Vital Signs: 06/17/25 17:24 Temperature 97.9 F Temperature Source Oral Pulse Rate 96 Respiratory Rate 18 Blood Pressure 151/99 H Blood Pressure Mean 116 Pulse Ox 98 Oxygen Delivery Method Room Air MDM MDM MDM Narrative Medical decision making narrative: Patient is a 59-year-old male who presents to the emergency department the chief complaint of right index finger wound. On the differential diagnose includes but limited to laceration, abrasion. At this point time there is no repairable laceration and there is a chunk of skin missing out of his right finger. He is advised to keep the area dry and clean wound was cleaned here in the emergency department and Xeroform applied. He is advised to watch out for signs of infection and if this is to occur he is to return to the emergency department or follow-up with his doctor in outpatient setting. He is advised to do Dreft soaks as well. He is agreeable this plan as well as significant other at bedside he is discharged home in stable condition. Once again the patient's tetanus shot is up-to-date. Discharge Plan Triage Chief Complaint: Laceration ED Provider: Travis Pike Dx/Rx/DC Orders Clinical Impression: Injury of right index finger, History of IBS, Abrasion of right index finger Prescriptions: No Action folic acid 1 mg tablet 1 mg PO DAILY fluticasone furoate-vilanterol 200-25 mcg/dose blister with device INHALATION methotrexate sodium 2.5 mg tablet PO pramipexole 0.25 mg tablet 0.25 mg PO QHS budesonide 0.25 mg/2 mL suspension for nebulization 0.25 mg inhalation BID PRN montelukast 10 mg tablet 10 mg PO QHS ipratropium bromide 21 mcg (0.03 %) spray,non-aerosol 1 spray intranasal BID clobetasol 0.05 % solution topical Patient Comments: PLEASE SEE ATTACHED FOR DETAILED DIRECTIONS dicyclomine 20 mg tablet 20 mg PO TID PRN (Reason: abdominal pain) Qty: 20 0RF Primary Care Provider: Kaden Diamond Referrals: Kaden Diamond MD [Primary Care Provider, Internal Medicine] Activity Restrictions/Additional Instructions: Keep the area dry and clean. Follow-up your doctor in outpatient setting. Return to worsening symptoms or any concerns. Do Dreft soaks as we discussed here. If you develop surrounding redness purulent drainage out of the wound your whole finger becomes very swollen red and painful you need to return to the emergency department immediately Print Language: Micronesian Disposition Disposition: Home, Self Care
[2025-06-17 18:04] VITALS: BP 132/84; PULSE 75; RESP 18; TEMP 36.9; O2SAT 95
== END 2025-06-17 18:17 | disposition home or self-care (01) ==
PROVIDERS: Emergency Provider Emergency Medicine; PCP Internal Medicine; Visit Provider Emergency Medicine
DX: S60.410A Abrasion of right index finger, initial encounter (principal); Z96.649 Presence of unspecified artificial hip joint; W26.0XXA Contact with knife, initial encounter
CPT/HCPCS: 99282

== ENCOUNTER → 2025-07-07 | Outpatient (CLI) | payer BC, SELFPAY ==
--- OUTSIDE RECORDS SUMMARY | 2025-07-07 13:22 | XMS RPT_ITS | CCD ---
Author Organization [facility] Care Team Providers Care Sample Prep Technician Name Role Phone DR KADEN DIAMOND MD Primary Care Physician Kaden Diamond MD Primary Care Provider Dr. Kaden Diamond Primary Care Provider Dr. Janes Hammond Attending Provider Dr. Kaden Diamond Referring Provider BECK Orozco Attending Provider Kaden Diamond MD Primary Care Provider Dr. Kaden Diamond Primary Care Provider Dr. Kaden Diamond Referring Provider BECK Orozco Attending Provider Dr. Kaden Diamond Primary Care Provider Dr. Kaden Diamond Referring Provider BECK Fernandez Attending Provider Dr. Kaden Diamond Primary Care Provider Dr. Kaden Diamond Referring Provider BECK Fernandez Attending Provider Kaden Diamond MD Primary Care Provider Kaden Diamond Primary Care Provider Ozzy BARROSO, Catherine Unavailable DIAMOND, BRE Referring Unavailable DIAMOND, BRE Primary Care Unavailable DIAMOND, BRE Attending Unavailable DIAMOND, BRE Primary Care Unavailable DIAMOND, BRE Attending Unavailable DIAMOND, BRE Primary Care Unavailable DIAMOND, BRE Attending Unavailable DIAMOND, BRE Primary Care Unavailable DIAMOND, BRE Referring Unavailable DIAMOND, BRE Primary Care Unavailable DIAMOND, BRE Referring Unavailable DIAMOND, BRE Primary Care Unavailable Lobo BARROSO, Dr. Alfonso Primary Care Provider Ozzy BARROSO, Dr. Alexander Attending Provider Ozzy BARROSO, Dr. Alexander Referring Provider Lobo BARROSO, Dr. Alfonso Primary Care Provider Ozzy BARROSO, Dr. Alexander Attending Provider Ozzy BARROSO, Dr. Alexander Referring Provider Lobo BARROSO, Dr. Alfonso Primary Care Physician Ozzy BARROSO, Dr. Alexander Attending Physician Ozzy BARROSO, Dr. Alexander Referring Provider CHARISSA CORLEY Attending Physician CHARISSA CORLEY Referring Provider Dr. Travis Pike DO Emergency Department Physic drake Dr. Travis Pike DO Attending Physician [phone] CHARISSA CORLEY Attending Unavailable DIAMOND, KADEN Primary Care Unavailable DIAMOND, KADEN Primary Care Unavailable GAURAV, KARL Attending Unavailable GAURAV, KARL Referring Unavailable DIAMOND, KADEN Primary Care Unavailable GAURAV, KARL Admitting Unavailable GAURAV, KARL Attending Unavailable DIAMOND, KADEN Primary Care Unavailable CHARISSA CORLEY Attending Unavailable DIAMOND, KADEN Primary Care Unavailable GAURAV, KARL Attending Unavailable DIAMOND, KADEN Primary Care Unavailable KADHIM, HA1 Referring Unavailable Diamond, Kaden Primary Care Unavailable KADHIM, HA1 Attending Unavailable Diamond, Kaden Primary Care Unavailable Vellanki, Catherine Attending Unavailable Vellanki, Catherine Referring Unavailable Vellanki, Catherine Attending Unavailable Diamond, Kaden Primary Care Unavailable Vellanki, Catherine Referring Unavailable Diamond, Kaden Primary Care Unavailable Vellanki, Catherine Referring Unavailable Vellanki, Catherine Attending Unavailable Diamond, Kaden Primary Care Unavailable Vellanki, Catherine Referring Unavailable Vellanki, Catherine Attending Unavailable Diamond, Kaden Primary Care Unavailable Vellanki, Catherine Referring Unavailable Vellanki, Catherine Attending Unavailable Diamond, Kaden Primary Care Unavailable Travis Pike Attending Unavailable Allergies Allergy Classification Reported Allergen(s) Allergy Type Date of Onset Reaction(s) Facility (18 sources) natural latex rubber; Translations: [Latex, Natural Rubber] Allergy to substance 1 unknown [facility] (20 sources) bee venom protein (honey bee) Allergy to substance 1 Unknown [facility] (20 sources) Ampicillin; Translations: [AMPICILLIN] Drug Allergy 6 Other [facility] Work Phone: Comment on above: Pt was told he was a llergic unknown reaction to medication. Pt was told to stay away from it. (13 sources) bandaid [Other] Propensity to adverse reactions 9 Rash [facility] Work Phone: (13 sources) bee stings [Other] Propensity to adverse reactions 6 Shortness of Breath [facility] Work Phone: (13 sources) Seasonal Allergies [Other] Propensity to adverse reactions 7 [facility] (1 source) OTHER; Translations: [OTHER] Propensity to adverse reactions (disorder) 9 [facility] (13 sources) bee venom Allergy to substance 1 Unknown, Hives, Swelling [facility] (1 source) Ampicillin Drug Allergy 5 [facility] (1 source) bee venom protein (honey bee) Drug allergy (disorder) 5 [facility] Medications Current Medications Medication Drug Class(es) Dates Sig (Normalized) Sig (Original) budesonide 0.125 mg/ml inhalation suspension (17 sources) Corticosteroid Start: 07-03-2023 take 0.25 mg by inhalation twice daily as needed End: 06-24-2024 budesonide (PULMICORT) 0.5 m g/2 mL nebulizer solution Indications: Mild intermittent asthma with acute exacerbation Use 0.5 mg via nebulizer once daily. 06/24/2024 Discontinued Comment on above: Use 0.5 mg via nebul izer once daily. clobetasol propionate 0.5 mg/ml topical solution (5 sources) Corticosteroid Start: 12-10-2023 Start: 12-10-2023 Clobetasol Act jacquie TOPICAL December 10, 2023 12:00am dicyclomine hydrochloride 20 mg oral tablet (12 sources) Anticholinergic Start: 05-13-2024 End: 06-24-2024 take 1 tablet by mouth three times daily as needed for pain enteric contrast (will be provided with radiology test) (1 source) Start: 05-18-2024 End: 05-19-2024 enteric contrast (will be provided with radiology test) Indications: Abdominal pain, lower , Diarrhea, unspecified type For CT ABD/PEL W IVCON Routine order Administer, As Directed One Time Only, via Oral, Rectal, both Oral and Rectal, Enteric Tube, Stoma or Indwelling Catheter, Enteric Contrast as designated per enteric contrast guidelines 1 Each 05/18/2024 05/19/2024 Active fexofenadine hydrochloride 180 mg oral tablet (20 sources) Histamine-1 Receptor Antagonist Start: 11-24-2019 take 1 tablet by mouth once daily fexofenadine (RACHELL ALLERGY) 180 mg tablet Take 1 tablet by mouth once daily. 11/24/2019 Active Comment on above: Take 1 tablet by [facility] once daily. 30 actuat fluticasone furoate 0.2 mg/actuat / vilanterol 0.025 mg/actuat dry powder inhaler (20 sources) Corticosteroid, beta2-Adrenergic Agonist Start: 10-29-2021 BREO ELLIPTA 200-25 mcg/dose inhaler 10/29/2021 Active Start: 11-16-2020 Fluticasone Fu roate-Vilanterol Active INHALATION November 16, 2020 1:45pm Start: 11-16-2020 Start: 11-16-2020 Fluticasone Fu roate-Vilanterol 200-25 mcg/dose blister with device Active INHALATION November 16, 2020 1:00am Start: 11-16-2020 Fluticasone Fu roate-Vilanterol Active INHALATION November 16, 2020 12:00am Start: 11-16-2020 Fluticasone Fu roate-Vilanterol Active INHALATION November 16, 2020 1:00am Breo Ellipta 100 -25 MCG/ACT aerosol powder Inhale. Active folic acid 1 mg oral tablet (20 sources) Start: 07-31-2020 take 1 tablet by mouth once da alecia folic acid (Folv ite) 1 MG tablet Take 2 mg by mouth daily. Active take 2 tablets by mouth once alexa ly FOLIC ACID ORAL Take 2 tablets by mouth once daily. Active take 2 tablets by mouth once alexa ly FOLIC ACID ORAL Take 2 tablets by mouth once daily. 0 Active Comment on above: Take 2 tablets by mo uth once daily. ipratropium bromide 0.021 mg/actuat metered dose nasal spray (5 sources) Anticholinergic Start: 12-10-2023 Start: 12-10-2023 Ipratropium Br omide Active 1 SPRAY INTRANASAL TWICE A DAY December 10, 2023 12:00am iv contrast (will be provided with radiology test) (1 source) Start: 05-18-2024 End: 05-19-2024 iv contrast (will be provided with radiology test) Indications: Abdominal pain, lower , Diarrhea, unspecified type CT ABD/PEL -Inject, intravenously, once for 1 dose.No IV access, insert saline lock prior to the beginning of sedation, infusion, injection of imaging exam. Discontinue saline lock post exam. If Pt. has a central line or IVAD, may access for administration according to line specific nursing protocol. Once exam is complete flush line and de-access according to line specific nursing protocol in the CT contrast administration guidelines link. 1 Each 05/18/2024 05/19/2024 Active methotrexate 2.5 mg oral tablet (20 sources) Folate Analog Metabolic Inhibitor Start: 11-16-2020 Start: 11-16-2020 Methotrexate S odium Active MG PO November 16, 2020 1:00am take 6 tablets by mo uth every week methotrexate 2.5 MG tablet Take 6 tablets by mouth 1 (one) time per week . TAKES ON THURSDAY Active take 1 tablet by mouth once meth otrexate 2.5 mg tablet Take 2.5 mg by mouth one time only. 6 tablets once weekly Active Comment on above: Take 2.5 mg by mouth one time only. 7 tablets once weekly montelukast 10 mg oral tablet (20 sources) Leukotriene Receptor Antagonist Start: 12-16-19 End: 05-16-20 24 take 1 tablet by mouth at bedtime Comment on above: Take 1 tablet by zuleima th daily at bedtime. pramipexole dihydrochloride 0.25 mg oral tablet (12 sources) Nonergot Dopamine Agonist Start: 08-28-20 take 1 tablet by mouth at bedtime rOPINIRole 0.25 mg oral tablet (20 sources) Nonergot Dopamine Agonist take 2 tablets by mouth once daily rOPINIRole (Requip) 0.25 MG tablet Take 0.5 mg by mouth Nightly. Active rOPINIRole (Requ ip) 0.25 MG tablet Take by mouth. Active Comment on above: Take 0.5 mg by mouth daily at bedtime. Take 1 to 2 tablets at bedtime. vancomycin 125 mg oral capsule (5 sources) Glycopeptide Antibacterial Start: 4 End: 4 take 1 capsule by mouth four times daily vancomycin (VANCOCIN) 125 mg capsule Indications: Clostridium difficile colitis Take 1 capsule by mouth four times daily for 10 days. 40 capsule 06/07/2024 06/17/2024 Active Start: 05-20-2024 End: 05-30-2024 take 1 capsule by mouth four times daily vancomycin (VANCOCIN) 125 mg capsule Indications: Clostridium difficile colitis Take 1 capsule by mouth four times daily for 10 days. 40 capsule 05/20/2024 05/30/2024 Active Completed/Discontinued Medications Medication Drug Class(es) Dates Sig (Normalized) Sig (Original) acetaminophen 500 mg oral tablet (2 sources) Start: 05-02-2025 End: 05-02-2025 1,000 mg, Oral, Once, On Thu05/02/25 at 0615, For 1 dose, Preprocedure, Administer 60 minutes prior to surgery. [id number] 200 actuat albuterol 0.09 mg/actuat metered dose inhaler (20 sources) beta2-Adrenergic Agonist Start: 07-31-2020 End: 11-16-2020 Albuterol Sulfate 90 mcg/actuation HFA aerosol inhaler Discontinued 1 NMA INHALATION ONCE July 31, 2020 1:00am November 16, 2020 1:45pm Start: 07-31-2020 End: 11-16-2020 Albuterol Sulfate Discontinu ed 1 INH INHALATION ONCE July 31, 2020 1:00am November 16, 2020 1:45pm Start: 11-24-2019 End: 05-16-2024 take 2 puff(s) by inhalation every six hours as needed albuterol HFA (PROAIR HFA) 90 mcg/actuation inhaler Indications: Mild intermittent asthma with acute exacerbation Inhale 2 Puffs as instructed every 6 hours as needed. 1 Inhaler 5 11/24/2019 05/16/2024 Discontinued Start: 11-03-2019 End: 12-15-2022 albuterol (PROVENTIL) 2.5 mg /3 mL (0.083 %) nebulizer solution Indications: Mild intermittent asthma with acute exacerbation Use 3 mL via nebulizer every 6 hours as needed for Wheezing/Shortness of Breath. 1 vial contains 3 ml. 100 Vial 1 11/03/2019 12/15/2022 Discontinued Comment on above: Use 3 mL via nebuliz er every 6 hours as needed for Wheezing/Shortness of Breath. 1 vial contains 3 ml. Inhale 2 Puffs as in structed every 6 hours as needed. azithromycin 250 mg oral tablet (20 sources) Macrolide Antimicrobial Start: 10-22-2022 End: 11-24-2022 Azithromycin 250 mg tablet Discontinued 250 mg PO daily 6 0 October 22, 2022 1:00am November 24, 2022 11:48am 2 tablets today, then 1 tablet daily on days 2 through 5 Start: 07-31-2020 End: 11-16-2020 take 2-5 tablets by mouth once daily Azithromycin 250 mg tablet Discontinued 0 PO .COMPLEX 6 0 July 31, 2020 1:00am November 16, 2020 1:45pm take 500 mg today (day 1), then 250 mg for 4 days (days 2-5) PO Start: 07-31-2020 End: 11-16-2020 Azithromycin Discontinued 0 PO .COMPLEX 6 July 31, 2020 1:00am November 16, 2020 1:45pm take 500 mg today (day 1), then 250 mg for 4 days (days 2-5) PO calcium chloride 0.0014 meq/ml / potassium chloride 0.004 meq/ml / sodium chloride 0.103 meq/ml / sodium lactate 0.028 meq/ml injectable solution (3 sources) Start: 05-02-2025 End: 05-02-2025 take 50 mL intravenously every hour 50 mL/hr, IntraVENous, Continuous, Starting on Thu05/02/25 at 0615, Preprocedure, Upon admission to sameday - please start iv if patient does not have iv access. Use 500ml NS for patients on dialysis. cephalexin 500 mg oral capsule (7 sources) Cephalosporin Antibacterial Start: 07-03-2023 End: 07-13-2023 take 1 capsule by mouth every twelve hours Cephalexin 500 mg capsule Discontinued 500 mg PO Q12H 20 10 0 July 03, 2023 12:00am July 12, 2023 12:00am July 13, 2023 12:04am 50 ml clindamycin 12 mg/ml injection (20 sources) Lincosamide Antibacterial Start: 05-02-2025 End: 05-02-2025 600 mg, IntraVENous, at 100 mL/hr, Administer over 30 Minutes, Once, On Thu05/02/25 at 0615, For 1 dose, Preprocedure, Administer within 1 hour prior to Incision. premix bag, Suspected Indication (Select all that apply): Surgical Prophylaxis Start: 04-05-2024 End: 05-16-2025 take 1 capsule by mouth every six hours Clindamycin Hcl (Cleocin Hcl) 300 mg capsule Discontinued 300 mg PO EVERY 6 HOURS 40 0 April 05, 2024 12:00am May 13, 2024 4:25pm 1 ml dexamethasone phosphate 10 mg/ml injection (1 source) Corticosteroid Start: 05-02-2025 End: 05-02-2025 IntraVENous, As needed, Starting on Thu05/02/25 at 0735, Anesthesia Intraprocedure dexAMETHasone-bupivac bethany-epinephrine (TAP) syringe (1 source) Start: 05-02-2025 End: 05-02-2025 Injection, Once PRN Procedure, Starting on Thu05/02/25 at 0712, For 1 dose, Anesthesia Intraprocedure dexAMETHasone-bupivac bethany-epinephrine (TAP) syringe 30 mL (2 sources) Start: 05-02-2025 End: 05-02-2025 30 mL, Transabdominal Plane, Once PRN, Nerve Block, Starting on Thu05/02/25 at 0605, For 1 dose, Preprocedure 12 hr dextromethorphan hydrobromide 60 mg / guaiFENesin 1200 mg extended release oral tablet (3 sources) Uncompetitive B-osbele-P-aspartat e Receptor Antagonist, Sigma-1 Agonist End: 05-16-2024 take 60-1200 mg by mouth every twelve hours Dextromethorphan-gu aiFENesin (MUCINEX DM) 60-1,200 mg tab ER 12 hr Indications: Mild intermittent asthma with acute exacerbation Take by mouth. 05/16/2024 Discontinued Dextromethorphan -guaiFENesin (MUCINEX DM) 60-1,200 mg tab ER 12 hr Indications: Mild intermittent asthma with acute exacerbation Take by mouth. 0 Active Comment on above: Take by mouth. 1 ml diphenhydrAMINE hydrochloride 50 mg/ml cartridge (2 sources) Histamine-1 Receptor Antagonist Start: 025 End: 025 12.5 mg, IntraVENous, Once PRN, itching, Starting on Thu05/02/25 at 0944, For 1 dose, Recovery (only) doxycycline monohydrate 100 mg oral capsule (20 sources) Tetracycline-class Drug Start: End: take 1 capsule by mouth twice daily Doxycycline Monohydrate 100 mg capsule Discontinued 100 mg PO TWICE A DAY 28 0 November 12, 2022 12:00pm July 03, 2023 11:59am fluticasone propionate 0.05 mg/actuat metered dose nasal spray (20 sources) Corticosteroid Start: 023 End: take 2 spray(s) by mouth once daily fluticasone (FLONASE) 50 mcg/actuation nasal spray Indications: Rhinosinusitis Use 2 Sprays in each nostril once daily. Rinse mouth after use. 1 Each 12/15/2022 05/16/2024 Discontinued Start: 07-31-2020 End: 11-16-2020 Fluticasone Propionate 110 mcg/actuation HFA aerosol inhaler Discontinued 1 NMA INHALATION TWICE A DAY July 31, 2020 1:00am November 16, 2020 1:45pm Start: 07-31-2020 End: 11-16-2020 take 1 puff(s) by inhalation twice daily Fluticasone Propionate Discontinued 1 PUFF INHALATION TWICE A DAY July 31, 2020 1:00am November 16, 2020 1:45pm Comment on above: Use 2 Sprays in each nostril once daily. Rinse mouth after use. 1 ml HYDROmorphone hydrochloride 1 mg/ml cartridge (4 sources) Opioid Agonist Start: 05-02-2025 End: 05-02-2025 0.5 mg, IntraVENous, Every 5 min PRN, severe pain (7-10), Starting on Thu05/02/25 at 0944, For 4 doses, Recovery (only), For Phase I. If Phase II oral narcotics have been administered in the last 60 minutes, do not administer IV narcotics unless specifically approved by provider. Start: 05-02-2025 End: 05-02-2025 0.25 mg, IntraVENous, Every 5 min PRN, moderate pain (4-6), Starting on Thu05/02/25 at 0944, For 4 doses, Recovery (only), For Phase I. If Phase II oral narcotics have been administered in the last 60 minutes, do not administer IV narcotics unless specifically approved by provider. 1 ml ketorolac tromethamine 30 mg/ml cartridge (1 source) Nonsteroidal Anti-inflammatory Drug, Cyclooxygenase Inhibitor Start: 05-02-2025 End: 05-02-2025 IntraVENous, As needed, Starting on Thu05/02/25 at 0916, Anesthesia Intraprocedure labetalol (Normodyne,Trandate) injection 5 mg (2 sources) Start: 05-02-2025 End: 05-02-2025 labetalol (Normodyne,Trandate) injection 5 mg 10 ml lidocaine hydrochloride 20 mg/ml injection (1 source) Antiarrhythmic, Amide Local Anesthetic Start: 05-02-2025 End: 05-02-2025 IntraVENous, As needed, Starting on Thu05/02/25 at 0732, Anesthesia Intraprocedure 1 ml LORazepam 2 mg/ml injection (2 sources) Benzodiazepine Start: 05-02-2025 End: 05-02-2025 0.5 mg, IntraVENous, Once PRN, for anxiety or muscle spasm., Starting on Thu05/02/25 at 0944, For 1 dose, Recovery (only), For IV doses dilute dose with 1ml NS. methylPREDNISolone 4 mg oral tablet (17 sources) Corticosteroid Start: 07-31-2020 End: 08-05-2020 take 1 tablet by mouth once Methylprednisolone (Medrol (Rodriguez)) 4 mg tablets,dose pack Discontinued 4 mg PO per package directions 21 5 0 July 31, 2020 1:00am August 04, 2020 1:00am August 05, 2020 1:03am 2 ml midazolam 1 mg/ml injection (3 sources) Benzodiazepine Start: 05-02-2025 End: 05-02-2025 IntraVENous, Once PRN Procedure, Starting on Thu05/02/25 at 0712, For 1 dose, Anesthesia Intraprocedure Start: 05-02-2025 End: 05-02-2025 2 mg, IntraVENous, PRN, anxi ety, administration per anesthesiologist direction. Up to two mg., Starting on Thu05/02/25 at 0605, Preprocedure, Pull 2 mg vial of midazolam draw up for anesthesia block placement with administration per anesthesiologist direction. 2 ml ondansetron 2 mg/ml injection (3 sources) Serotonin-3 Receptor Antagonist Start: 05-02-2025 End: 05-02-2025 4 mg, IntraVENous, Once PRN, nausea, Starting on Thu05/02/25 at 0944, For 1 dose, Recovery (only), Initial antiemetic therapy. Start: 05-02-2025 End: 05-02-2025 IntraVENous, As needed, Star ting on Thu05/02/25 at 0851, Anesthesia Intraprocedure oxyCODONE hydrochloride 5 mg oral tablet (6 sources) Opioid Agonist Start: 05-02-2025 End: 05-09-2025 take 1 tablet by mouth every six hours as needed for pain oxyCODONE (Roxicodone) 5 MG immediate release tablet Indications: S/P ligament repair Take 1 tablet (5 mg) by mouth every 6 hours as needed for severe pain (7-10) for up to 5 days. 20 tablet 05/02/2025 05/09/2025 Discontinued (Therapy completed) Start: 05-02-2025 End: 05-02-2025 take 1 tablet by mouth every four hours as needed for pain oxyCODONE (Roxicodone) immediate release tablet 5 mg predniSONE 10 mg oral tablet (20 sources) Start: 11-16-2020 End: 11-28-2020 Prednisone 10 mg tablet Discontinued 10 mg PO daily 30 0 November 16, 2020 1:00am November 27, 2020 1:00am November 28, 2020 1:02am Unspecified contact dermatitis, unspecified cause Take 4 tabs once daily days 1-3 3 tabs once daily days 4-6 2 tabs once daily days 7-9 and 1 tab once daily days 10-12. take 1 tablet by zuleima th every twenty-four hours as needed predniSONE (Deltasone) 10 MG tablet Take 10 mg by mouth Daily as needed. Active 20 ml propofol 10 mg/ml injection (1 source) General Anesthetic Start: 05-02-2025 End: 05-02-2025 IntraVENous, As needed, Starting on Thu05/02/25 at 0732, Anesthesia Intraprocedure 50 ml sodium chloride 9 mg/ml injection (14 sources) Start: 05-02-2025 End: 05-02-2025 10 mL, IntraVENous, Every 12 hours scheduled (2 times per day), First dose on Thu05/02/25 at 0900, Preprocedure Start: 05-02-2025 End: 05-02-2025 500 mL, IntraVENous, at 1,00 0 mL/hr, Administer over 0.5 Hours, PRN, Anti-nausea, Starting on Thu05/02/25 at 0944, Recovery (only), Indications: Anti-nausea Start: 05-02-2025 End: 05-02-2025 take 10 mL intravenously once as needed 10 mL, IntraVENous, PRN, line care, Starting on Thu05/02/25 at 0605, Preprocedure, After every IV line use Start: 05-02-2025 End: 05-02-2025 take 5-40 mL intravenously every twelve hours 5-40 mL, IntraVENous, Every 12 hours, First dose on Thu05/02/25 at 0615, Preprocedure, For Line Patency: Peripheral IV = 5 mL; Midline or Central Line = 10 mL/lumen. If following IV push medication, administer flush at same rate as the IV push. Flush volume is determined by type of infusion therapy being given. For non-viscous solutions use: Peripheral IV = 5 mL Midline or Central Line = 10 mL/lumen For viscous solutions (i.e. blood components, parenteral nutrition, contrast media, or after obtaining blood sample) use: Peripheral IV = 10 mL Midline or Central Line = 20 mL/lumen Problems Active Problems Problem Classification Problem Date Documented Da te Episodic/Chronic Abdominal pain (4 sources) Lower abdominal pain; Translations: [Lower abdominal pain, unspecified] Onset: 05-17-2024 05-16-2024 Episodic Acute bronchitis (18 sources) Acute bronchitis; Translations: [Acute bronchitis, unspecified] Onset: 06-14-2025 07-31-2020 Episodic Asthma (16 sources) Mild intermittent asthma; Translations: [Mild intermittent asthma with (acute) exacerbation] Onset: 10-21-2007 11-24-2019 Chronic Fracture of upper limb (5 sources) Open fracture of distal phalanx of index finger; Translations: [Nondisplaced fracture of distal phalanx of right index finger, subsequent encounter for fracture with routine healing] 04-12-2024 Episodic Genitourinary symptoms and ill-defined conditions (2 sources) Delay when starting to pass urine; Translations: [Hesitancy of micturition] Onset: 05-17-2024 05-16-2024 Episodic Immunizations and screening for infectious disease (3 sources) Needs influenza immunization; Translations: [Encounter for immunization] Episodic Open wounds of extremities (20 sources) Laceration of left forearm; Translations: [Laceration without foreign body of left forearm, initial encounter] Onset: 06-14-2025 10-13-2022 Episodic Open wounds of extremities (6 sources) Laceration of finger without foreign body; Translations: [Laceration without foreign body of right index finger with damage to nail, subsequent encounter] Onset: 06-14-2025 04-12-2024 Episodic Osteoarthritis (15 sources) Osteoarthritis of hip; Translations: [Osteoarthritis of hip, unspecified] Onset: 05-12-2013 11-24-2019 Chronic Other aftercare (1 source) Removal of sutures done; Translations: [Encounter for removal of sutures] 04-12-2024 Episodic Other connective tissue disease (11 sources) Tendinitis of wrist; Translations: [Other enthesopathies, not elsewhere classified] 11-16-2020 Episodic Other connective tissue disease (7 sources) Tendonitis of right wrist; Translations: [Other enthesopathies, not elsewhere classified] Onset: 06-14-2025 11-16-2020 Episodic Other gastrointestinal disorders (5 sources) Irritable bowel syndrome; Translations: [Irritable bowel syndrome without diarrhea] Onset: 06-14-2025 05-13-2024 Chronic Other gastrointestinal disorders (3 sources) Diarrhea; Translations: [Diarrhea, unspecified] 05-16-2024 Episodic Other gastrointestinal disorders (1 source) Diarrhea, unspecified; Translations: [Diarrhea, unspecified type] Onset: 05-17-2024 Episodic Other gastrointestinal disorders (2 sources) History of irritable bowel syndrome; Translations: [Personal history of other diseases of the digestive system] 06-17-2025 Episodic Other inflammatory condition of skin (14 sources) Psoriasis; Translations: [Psoriasis, unspecified] Onset: 09-21-1985 09-16-2021 Chronic Other inflammatory condition of skin (16 sources) Psoriatic arthritis; Translations: [Arthropathic psoriasis, unspecified] Onset: 09-21-2017 11-24-2019 Chronic Other inflammatory condition of skin (1 source) Arthropathic psoriasis, unspecified; Translations: [Psoriatic arthritis (HCC)] Onset: 11-24-2019 Chronic Other inflammatory condition of skin (1 source) Other psoriatic arthropathy; Translations: [Other psoriatic arthropathy] Onset: 06-09-2025 Chronic Other injuries and conditions due to external causes (11 sources) Injury of finger of left hand; Translations: [Unspecified injury of left wrist, hand and finger(s), initial encounter] Onset: 06-14-2025 12-10-2023 Episodic Other injuries and conditions due to external causes (2 sources) Unspecified injury of left wrist, hand and finger(s), initial encounter; Translations: [Finger injury] 12-10-2023 Episodic Other injuries and conditions due to external causes (2 sources) Injury of finger of right hand; Translations: [Unspecified injury of right wrist, hand and finger(s), initial encounter] 06-17-2025 Episodic Other lower respiratory disease (2 sources) Rib pain; Translations: [Pleurodynia] Episodic Other lower respiratory disease (1 source) Chronic cough; Translations: [Chronic cough] Episodic Other screening for suspected conditions (not mental disorders or infectious disease) (4 sources) Patient encounter status; Translations: [Encounter for screening for lipoid disorders] Onset: 05-17-2024 04-12-2024 Episodic Other upper respiratory disease (14 sources) Chronic rhinitis; Translations: [Chronic rhinitis] Onset: 03-03-2006 05-12-2013 Chronic Other upper respiratory disease (1 source) Chronic rhinitis; Translations: [Unspecified sinusitis (chronic)] Chronic Residual codes; unclassified (5 sources) History of orthopedic surgery; Translations: [Other specified postprocedural states] 05-02-2025 Episodic Residual codes; unclassified (2 sources) Other specified postprocedural states; Translations: [Other specified postprocedural states] Onset: 05-02-2025 Episodic Sprains and strains (20 sources) Ligament rupture ; Translations: [Traumatic rupture of unspecified radial collateral ligament, initial encounter] Onset: 07-23-2020 05-09-2024 Episodic Superficial injury; contusion (3 sources) Abrasion of right index finger; Translations: [Abrasion of right index finger, initial encounter] Onset: 06-21-2025 06-17-2025 Episodic Unclassified (12 sources) Traumatic rupture of radial collateral ligament of elbow 08-04-2024 Past or Other Problems Problem Classification Problem Date Documented Da te Episodic/Chronic Acquired foot deformities (1 source) Acquired deformity of left foot; Translations: [Other acquired deformities of left foot] Onset: 06-25-2015 06-14-2025 Episodic Intestinal infection (10 sources) Clostridium difficile colitis; Translations: [Enterocolitis due to Clostridium difficile, not specified as recurrent] Onset: 05-20-2024 Resolved: 06-24-2024 05-20-2024 Episodic Other connective tissue disease (1 source) Lateral epicondylitis; Translations: [Lateral epicondylitis, unspecified elbow] Onset: 09-24-2017 06-14-2025 Episodic Other connective tissue disease (1 source) Peroneal tendinitis of left lower limb; Translations: [Peroneal tendinitis, left leg] Onset: 06-25-2015 06-14-2025 Episodic Other non-traumatic joint disorders (1 source) Knee joint effusion; Translations: [Effusion, unspecified knee] Onset: 07-23-2020 06-14-2025 Episodic Other nutritional; endocrine; and metabolic disorders (1 source) Body mass index 25-29 - overweight; Translations: [Overweight] Onset: 07-23-2020 06-14-2025 Episodic Other nutritional; endocrine; and metabolic disorders (1 source) Overweight; Translations: [Overweight] Onset: 07-23-2020 06-14-2025 Episodic Other upper respiratory infections (20 sources) Upper respiratory infection; Translations: [Acute upper respiratory infection, unspecified] Onset: 07-03-2023 08-28-2022 Episodic Poisoning by nonmedicinal substances (14 sources) Toxic effect of contact with unspecified venomous animal, accidental (unintentional), initial encounter; Translations: [Toxic effect of venom] Onset: 11-21-2006 11-21-2006 Episodic Unclassified (1 source) Traumatic rupture of collateral ligament of wrist 05-09-2025 Unclassified (1 source) History of orthopedic surgery 05-09-2025 Results Test Name Value Interpretation Reference Range Facility Emergency Department Summary on 06-17-2025 Emergency Department Summary [facility] Medical Records Department [address] [place] [address] Emergency Department Summary 06/17/25 MR#: [id number] Acct: [id number] Name: HOLLIS MASCORRO Rep #: [id number] : 1965 59 From: Travis Pike DO PCP: Dr. Kaden Diamond MD Status:PRE ER Location: ED HPI History of Present Illness Chief Complaint: Laceration Narrative Narrative: Patient is a 59-year-old male who presents to the emergency department chief complaint of cut to his right finger. According to the patient he was attempting to open a hay hawk when a knife slipped and cut his finger. He states that his tetanus shot is up-to-date was recently updated. He noted that since it was continuously bleeding they came here for further evaluation management. [facility] Medical History Laceration of left forearm URI (upper respiratory infection) Acute pharyngitis, unspecified Arthritis Knee pain Home Medications ???Medication ???Instructions ???Recorded ???Last Taken ???Type folic acid 1 mg tablet 1 mg PO DAILY 07/31/20 Unknown His tory fluticasone furoate 200 inhalation 11/16/20 Unknown Histor y mcg-vilanterol 25 mcg/dose inhalation powder methotrexate sodium 2.5 mg tablet mg PO 11/16/20 Unknown History pramipexole 0.25 mg tablet 0.25 mg PO QHS 08/28/22 Unknown Hi story budesonide 0.25 mg/2 mL suspension 0.25 mg inhalation BID PRN 07/03 Unknown History for nebulization clobetasol 0.05 % scalp solution topical 12/10/23 Unknown History ipratropium bromide 21 mcg (0.03 1 spray intranasal BID 12/10/23 Un known History %) nasal spray montelukast 10 mg tablet 10 mg PO QHS 12/10/23 Unknown Hist ory dicyclomine 20 mg tablet 20 mg PO TID PRN abdominal pain Unknown Rx #20 tabs Allergy/AdvReac Type Severity Reaction Status Date / Time bee venom protein (honey bee) Allergy Mild unknown Verified 06/17/25 17:24 Latex, Natural Rubber Allergy Mild unknown Verified 06/17/25 17:24 ampicillin Allergy Unknown Other Verified 06/17/25 17:24 Surgical History Hx of foot surgery History of total hip replacement Social History Smoking Status: Never smoker ROS ROS ED ROS Narrative Neurological: Denies any numbness, weakness, tingling Skin: Complains of cut to the right index finger EXAM Physical Exam Narrative Exam Narrative: General: Patient is lying in bed rest comfortably did not appear to be acute distress Head: Atraumatic, normocephalic Eyes: PERRL bilaterally, EOMI bilaterally Cardiovascular: Regular rate Extremities: Radial pulses +2/4 in the bilateral extremities, +5/5 strength noted in the bilateral lower extremities, patient has full flexion extension of his fingers in his right hand Neurological: Patient has sensation grossly intact in the median, ulnar and radial nerve distribution bilaterally Skin: Patient has a chunk of skin missing out of the right index finger with no active bleeding noted there is no laceration to be repaired Const Vital Signs: 06/17/25 17:24 Temperature 97.9 F Temperature Source Oral Pulse Rate 96 Respiratory Rate 18 Blood Pressure 151/99 H Blood Pressure Mean 116 Pulse Ox 98 Oxygen Delivery Method Room Air MDM MDM MDM Narrative Medical decision making narrative: Patient is a 59-year-old male who presents to the emergency department the chief complaint of right index finger wound. On the differential diagnose includes but limited to laceration, abrasion. At this point time there is no repairable laceration and there is a chunk of skin missing out of his right finger. He is advised to keep the area dry and clean wound was cleaned here in the emergency department and Xeroform applied. He is advised to watch out for signs of infection and if this is to occur he is to return to the emergency department or follow-up with his doctor in outpatient setting. He is advised to do Dreft soaks as well. He is agreeable this plan as well as significant other at bedside he is discharged home in stable condition. Once again the patient's tetanus shot is up-to-date. Discharge Plan Triage Chief Complaint: Laceration ED Provider: Travis Pike Dx/Rx/DC Orders Clinical Impression: Injury of right index finger, History of IBS, Abrasion of right index finger Prescriptions: No Action folic acid 1 mg tablet 1 mg PO DAILY fluticasone furoate-vilanterol 200-25 mcg/dose blister with device INHALATION methotrexate sodium 2.5 mg tablet PO pramipexole 0.25 mg tablet 0.25 mg PO QHS budesonide 0.25 mg/2 mL suspension for nebulization 0.25 mg inhalation BID PRN montelukast 10 mg (more content not included)... Normal [facility] Office Visiton 06-14-2025 Follow-up visit [id number] Hollis Mascorro 1965 M Date Provider Department Center 06/14/2025 [id number] NOLASCO MG GRN ORT None No family history on file Level of Service:56946 [place] POSTOP FOLLOW UP VISIT RELATED TO ORIGINAL PX Reason for Visit and Comments: Post-op [483] - Left index finger MCP radial collateral ligament reconstruction using palmaris longus autograft DOS 05/02/2025 Normal [facility] Progress Noteon 06-14-2025 Progress Note [facility] [address] [facility] [id number] Dept: [phone] Dept 06/14/2025 Chief Complaint Patient presents with Post-op Left index finger MCP radial collateral ligament reconstruction using palmaris longus autograft DOS 05/02/2025 SUBJECTIVE Hollis is approximately 6 week(s) s/p Left index finger MCP radial collateral ligament reconstruction using palmaris longus autograft. Pain is minimal. He is no longer taking anything for pain. He denies significant complaints other than the expected amount of pain. Feels pain is improving. OBJECTIVE BP 126/79 (BP Location: Right arm, Patient Position: Sitting) Pulse 61 Ht 5' 9 (1.753 m) Wt 194 lb (88 kg) BMI 28.65 kg/m? Ortho Exam Focused Exam of the LEFT Upper Extremity Skin: appropriately healed incision(s) without evidence of infection Edema: mild edema surrounding the at the surgical site Palpation: non tender to palpation throughout ROM: full functional ROM of the shoulder, elbow, and wrist. Clinical ROM Photo(s): Stability: no evidence of joint instabilities, firm end point with stability testing Motor: Intact in the hand - able to fire AIN, PIN, and Ulnar nerves Sensation: intact to light touch in all fingers Perfusion: Brisk capillary refill in all 5 digits Examination of the contralateral upper extremity reveals skin to be warm, dry, and intact. There is no evidence of edema. He has full range of motion without apparent instabilities. There is no apparent tenderness to palpation. Excellent strength without deficit. Normal coordination and sensation throughout his upper extremity. Easily palpable radial pulse. IMAGING No new Xray images obtained this visit. ASSESSMENT (S53.20XA) Traumatic rupture of radial collateral ligament (Z98.890) S/P ligament repair 1. Traumatic rupture of radial collateral ligament 2. S/P ligament repair PLAN Hollis is to continue with slow gradual strength in the hand. Given option for another follow-up at 3 months from surgery but he states he would call the office to be reevaluated if he feels necessary.. Immobilization: NO immobilization required at this point - FULL ROM encouraged without resitrictions Weight Bearing: Progress per therapy protocol Rehabilitation: Continue with therapy as scheduled. Follow-up: Hollis will followup with me on an as needed basis. He knows to call the office with any questions or concerns in the interim. Future Imaging: NONE Karl Nolasco MD Hand and Upper Extremity Surgery [facility] Department of Orthopaedics and Sports Medicine 06/14/2025 at 3:40 PM (Please note that portions of this note may have been completed with a voice recognition program. Efforts were made to edit the dictations but occasionally words are mis-transcribed.) Normal [facility] Re-Evalution OTon 06-13-2025 Re-Evalution OT [facility] Occupational Therapy [facility] [address] [place] [address] / REEVALUATION / MEDICARE RECERTIFICATION OCCUPATIONAL THERAPY MR#: [id number] Acct: [id number] Name: HOLLIS MASCORRO Rep #: [id number] : 1965 59 From: Tatum Atkins OTR/ROBERT MorrowT Referring Dr.: OUT OF TOWN DOCTOR Status: REG R CR [facility] Date: SELF PAY INSURANCE Re-Evaluation Intro: CHARISSA CORLEY, It has been my pleasure to treat HOLLIS MASCORRO over the last 6 visits for left IF radial collateral lig. Please see the progress note below for an update on the occupational therapy plan of care! Subjective Subjective: pt arrives 6 weeks s/p from left IF radial collateral lig repair. Objective Objective/Function: L hand prior to tx: IF MP 0/75 PIP -5/85 DIP 65 L hand after tx: IF MP 83 PIP PIP 90 DIP 70 pt is using his hand IND with bathing/dressing pt is progressing well and will transition pt to light PRE still wearing shashi splint for protection around others and pets. Plan Plan Frequency: 1-2x /Week Duration: 2 Months Visits in this POC: 16 Plan: General Plan: Phase 1: Day 0-14 splint all times phase 2 ( week 2-4) early mobilization Splint to custom orthosis (MP ext) allowing PIP and DIP motion- May begin protected AROM of MCP joint in flexion/extension only Night use: splint Shashi Loop Option: introduce wide shashi loop splint during the day to allow for controlled motion while preventing ulnar deviation Phase 3: Intermediate Recovery (week 5-8) daytime: continue shashi loop splint for protection during light activity nighttime: may contnue MP extension splint if instability or painful Goal gradual increase in MCP joint motion wile maintaining ligament integrity Phase 4 late recovery (week 8-12) D/C splint if MCP joint is stable and pain-free Functional splint: optional use of shashi loop during high-risk activity ( gripping/lifting) Therapy focus on strengthening and proprioception: Goals Goals Patient Goals: Regain Mobility, Decrease Pain, Improve Fine Motor Skills, Use Hand/Wrist/Arm Normally Again and Be More Independent in ADLS Goal:Daily scar massage when approriate: Yes Goal:ROM equal to unaffected hand: Yes Goal:Slimer/Pinch strength at least 75% of unaffected hand: Yes Goal:No pain with affected hand use: Yes Goal:PIP Circumferences equal to unaffected hand: Yes Goal:Full use of affected hand in daily activities including work: Yes Goal:Decrease scar hypersensitivity: Yes Anticipated Interventions Anticipated Interventions Anticipated Interventions: Early Active Motion, A/AAROM/PROM, Strengthening, Scar Care, Triggerpoint Release, Modalities, Orthoses, Joint Protection/Energy Conservation, Ergonomic Education, Education re assistive Equipment, Education re Diagnosis, Caregiver Training and Home Program Re-Evaluation Ending Re-evaluation ending: Please do not hesitate to contact me at [phone] by phone or if you have questions or concerns regarding this new plan of care! Sincerely, Tatum Atkins OTR/L, [facility] 06/13/25 0783 CC: Dr. Kaden Diamond MD; CHARISSA CORLEY MK Signed For Medicare only, by signing this I certify the plan of care. ___ Physicians Signature Date Normal [facility] Absolute lymphocyte countOrd ered By: Catherine Preciado on 05-26-2025 Lymphocytes Auto (Unsp spec) [#/Vol] 1.80 10*3/uL 0.83-4.51 [facility] Absolute neutrophil countOrd ered By: Catherine Preciado on 05-26-2025 Neutrophils (Bld) [#/Vol] 5.3 10*3/uL 2.0-7.7 [facility] Anion gap in Serum or Plasma Ordered By: Catherine Preciado on 05-26-2025 Anion gap [Moles/Vol] 15 mmol/L 5-15 [facility] Automated lymphocyte count a s percentage of total leukocytesOrdered By: Catherine Preciado on 05-26-2025 Lymphocytes/100 WBC Auto (Unsp spec) 20.7 % 19- [facility] BUN/creatinine ratioOrdered By: Catherinecarlos Preciado on 05-26-2025 Urea nitrogen/Creatinine [Mass ratio] 16.7 mg/mg 10- [facility] Basophil percentageOrdered B y: Catherine Preciado on 05-26-2025 Basophils/100 WBC (Bld) 0.9 % 0-1 [facility] Bilirubin, totalOrdered By: Catherinecarlos Preciado on 05-26-2025 Bilirubin [Mass/Vol] 0.41 mg/dL 0.00-1.30 [facility] CBC W/Diff, Automatedon Absolute Lymph 1.80 X10 3/uL Normal 0.83-4.51 [facility] Comment on above: Performed By: #### L 500.4050, L100.0100 #### [facility] [address] [place], [address] Absolute Neut 5.3 X10 3/uL Normal 2.0-7.7 [facility] Comment on above: Performed By: #### L 500.4050, L100.0100 #### [facility] [address] [place], [address] Basophils/100 WBC (Bld) 0.9 % Normal 0-1 [facility] Comment on above: Performed By: #### L 500.4050, L100.0100 #### [facility] [address] [place], [address] Eosinophils/100 WBC (Bld) 3.8 % Normal 0-5 [facility] Comment on above: Performed By: #### L 500.4050, L100.0100 #### [facility] [address] [place], [address] Erythrocyte distribution width (RBC) [Ratio] 13.3 % Normal 11.6-14.6 [facility] Comment on above: Performed By: #### L 500.4050, L100.0100 #### [facility] [address] [place], [address] Hematocrit (Bld) [Volume fraction] 44.6 % Normal 40-54 [facility] Comment on above: Performed By: #### L 500.4050, L100.0100 #### [facility] [address] [place], [address] Hemoglobin (Bld) [Mass/Vol] 15.6 g/dL Normal 13.0-16.5 [facility] Comment on above: Performed By: #### L 500.4050, L100.0100 #### [facility] [address] [place], [address] IG% 1.200 High 0.0-0.9 [facility] Comment on above: Result Comment: IG% - Immature Granulocytes (promyelocytes, myelocytes and metamyelocytes) > 1% indicates that a LEFT SHIFT is Present. Performed By: #### L 500.4050, L100.0100 #### [facility] [address] [place], [address] Lymphocytes/100 WBC (Bld) 20.7 % Normal 19-41 [facility] Comment on above: Performed By: #### L 500.4050, L100.0100 #### [facility] [address] [place], [address] MCH (RBC) [Entitic mass] 32.6 pg High 27.0-32.0 [facility] Comment on above: Performed By: #### L 500.4050, L100.0100 #### [facility] [address] [place], [address] MCHC (RBC) [Mass/Vol] 35.0 g/dL Normal 32-36 [facility] Comment on above: Performed By: #### L 500.4050, L100.0100 #### [facility] [address] [place], [address] MCV (RBC) [Entitic vol] 93.1 fL Normal 80-94 [facility] Comment on above: Performed By: #### L 500.4050, L100.0100 #### [facility] [address] [place], [address] Monocytes/100 WBC (Bld) 12.1 % High 0-10 [facility] Comment on above: Performed By: #### L 500.4050, L100.0100 #### [facility] [address] [place], [address] Neutrophils/100 WBC (Bld) 61.3 % Normal 47-70 [facility] Comment on above: Performed By: #### L 500.4050, L100.0100 #### [facility] [address] [place], [address] Nucleated RBC (Bld) [#/Vol] 0 10*3/uL Normal 0-5 [facility] Comment on above: Performed By: #### L 500.4050, L100.0100 #### [facility] [address] [place], [address] Platelet mean volume (Bld) [Entitic vol] 10.2 fL Normal 6.2-12.0 [facility] Comment on above: Performed By: #### L 500.4050, L100.0100 #### [facility] [address] [place], [address] Platelets (Bld) [#/Vol] 258 10*3/uL Normal 150-450 [facility] Comment on above: Performed By: #### L 500.4050, L100.0100 #### [facility] [address] [place], [address] RBC (Bld) [#/Vol] 4.79 10*6/uL Normal 4.6-6.2 [facility] Comment on above: Performed By: #### L 500.4050, L100.0100 #### [facility] [address] [place], [address] RDW SD 45.2 fl High 35.1-43.9 [facility] Comment on above: Performed By: #### L 500.4050, L100.0100 #### [facility] [address] [place], [address] WBC (Bld) [#/Vol] 8.7 10*3/uL Normal 4.4-11.0 [facility] Comment on above: Performed By: #### L 500.4050, L100.0100 #### [facility] [address] [place], [address] Carbon dioxide, total [Moles /volume] in Central venous bloodOrdered By: Catherine Preciado on 05-26-2025 CO2 [Moles/Vol] 20.5 mmol/L Low 21.0-32.0 [facility] Chloride assayOrdered By: Beck Preciado on 05-26-2025 Chloride [Moles/Vol] 102 mmol/L 98-108 [facility] Comprehensive Metabolic Prof ilon 05-26-2025 Albumin [Mass/Vol] 4.2 g/dL Normal 3.5-5.0 [facility] Comment on above: Performed By: #### L 500.4050, L100.0100 #### [facility] [address] [place], [address] Albumin/Globulin [Mass ratio] 1.4 {ratio} Normal 0.9-2.4 [facility] Comment on above: Performed By: #### L 500.4050, L100.0100 #### [facility] [address] [place], [address] ALK PHOS 82 U/L Normal 40-129 [facility] Comment on above: Performed By: #### L 500.4050, L100.0100 #### [facility] [address] [place], [address] ALT [Catalytic activity/Vol] 34 U/L Normal <=46 [facility] Comment on above: Performed By: #### L 500.4050, L100.0100 #### [facility] [address] [place], [address] AST [Catalytic activity/Vol] 31 U/L Normal <=37 [facility] Comment on above: Performed By: #### L 500.4050, L100.0100 #### [facility] [address] [place], [address] Bilirubin [Mass/Vol] 0.41 mg/dL Normal 0.00-1.30 [facility] Comment on above: Performed By: #### L 500.4050, L100.0100 #### [facility] [address] [place], [address] BUN/CRE 16.7 RATIO Normal 10-20 [facility] Comment on above: Performed By: #### L 500.4050, L100.0100 #### [facility] [address] [place], [address] Calcium [Mass/Vol] 9.1 mg/dL Normal 7.6-11.0 [facility] Comment on above: Performed By: #### L 500.4050, L100.0100 #### [facility] [address] [place], [address] Chloride [Moles/Vol] 102 mmol/L Normal 98-108 [facility] Comment on above: Performed By: #### L 500.4050, L100.0100 #### [facility] [address] [place], [address] CO2 [Moles/Vol] 20.5 mmol/L Low 21.0-32.0 [facility] Comment on above: Performed By: #### L 500.4050, L100.0100 #### [facility] [address] [place], [address] Creatinine [Mass/Vol] 1.00 mg/dL Normal 0.70-1.20 [facility] Comment on above: Performed By: #### L 500.4050, L100.0100 #### [facility] [address] [place], [address] GAP 15 Normal 5-15 [facility] Comment on above: Performed By: #### L 500.4050, L100.0100 #### [facility] [address] [place], [address] GFR/1.73 sq M.predicted among non-blacks MDRD (S/P/Bld) [Vol rate/Area] 88 mL/min/{1.73_m2} Normal >60 [facility] Comment on above: Result Comment: mL/m in/1.73m2 CKD-EPI Creatinine Equation (2020) Performed By: #### L 500.4050, L100.0100 #### [facility] [address] [place], [address] Globulin (S) [Mass/Vol] 3.1 g/dL Normal 2.2-4.2 [facility] Comment on above: Performed By: #### L 500.4050, L100.0100 #### [facility] [address] [place], [address] Glucose [Mass/Vol] 128 mg/dL High 70-99 [facility] Comment on above: Performed By: #### L 500.4050, L100.0100 #### [facility] [address] [place], [address] Potassium [Moles/Vol] 3.7 mmol/L Normal 3.3-5.1 [facility] Comment on above: Performed By: #### L 500.4050, L100.0100 #### [facility] [address] [place], [address] Sodium [Moles/Vol] 138 mmol/L Normal 133-145 [facility] Comment on above: Performed By: #### L 500.4050, L100.0100 #### [facility] [address] [place], [address] T PROT 7.4 g/dL Normal 5.9-8.4 [facility] Comment on above: Performed By: #### L 500.4050, L100.0100 #### [facility] [address] [place], [address] Urea nitrogen [Mass/Vol] 17 mg/dL Normal 4-19 [facility] Comment on above: Performed By: #### L 500.4050, L100.0100 #### [facility] [address] [place], [address] Eosinophil percentageOrdered By: Catherine Preciado on 05-26-2025 Eosinophils/100 WBC (Bld) 3.8 % 0-5 [facility] Erythrocyte distribution wid th ratioOrdered By: Catherine Preciado on 05-26-2025 Erythrocyte distribution width (RBC) [Ratio] 13.3 % 11.6-14.6 [facility] Erythrocyte distribution wid th standard deviationOrdered By: Catherine Preciado on 05-26-2025 Erythrocyte distribution width (RBC) [Ratio] 45.2 fl High 35.1-43.9 [facility] Glomerular filtration rate ( GFR) estimation/1.73 sq m using serum, plasma, or whole bOrdered By: Catherine Preciado on 05-26-2025 GFR/1.73 sq M.predicted among non-blacks MDRD (S/P/Bld) [Vol rate/Area] 88 mL/min/{1.73_m2} >60 [facility] Comment on above: mL/min/1.73m2 CKD-EP I Creatinine Equation (2020) Hematocrit Auto (Bld) [Volum e fraction]Ordered By: Catherine Preciado on 05-26-2025 Hematocrit (Bld) [Volume fraction] 44.6 % 40-54 [facility] Hemoglobin measurementOrdere d By: Catherine Preciado on 05-26-2025 Hemoglobin (Bld) [Mass/Vol] 15.6 g/dL 13.0-16.5 [facility] Immature granulocytes/100 WB C Auto (Bld)Ordered By: Catherine Preciado on 05-26-2025 Immature granulocytes/100 WBC (Bld) 1.200 % High 0.0-0.9 [facility] Comment on above: IG% - Immature Granu locytes (promyelocytes, myelocytes and metamyelocytes) > 1% indicates that a LEFT SHIFT is Present. Laboratory - Chemistry and C hemistry - challengeOrdered By: Catherine Preciado on 05-26-2025 AST [Catalytic activity/Vol] 31 U/L <38 [facility] MCV (mean corpuscular volume ) determinationOrdered By: Catherine Preciado on 05-26-2025 MCV (RBC) [Entitic vol] 93.1 fL 80-94 [facility] Mean corpuscular hemoglobin (MCH) determinationOrdered By: Catherine Preciado on 05-26-2025 MCH (RBC) [Entitic mass] 32.6 pg High 27.0-32.0 [facility] Mean corpuscular hemoglobin concentration (MCHC) determinationOrdered By: Catherine Preciado 05-26-2025 MCHC (RBC) [Mass/Vol] 35.0 g/dL 32-36 [facility] Mean platelet volume determi nationOrdered By: Catherine Preciado on 05-26-2025 Platelet mean volume (Bld) [Entitic vol] 10.2 fL 6.2-12.0 [facility] Monocyte percentageOrdered B y: Catherine Preciado on 05-26-2025 Monocytes/100 WBC (Bld) 12.1 % High 0-10 [facility] Neutrophil percentageOrdered By: Catherine Preciado on 05-26-2025 Neutrophils/100 WBC (Bld) 61.3 % 47-70 [facility] Nucleated red blood cell per centageOrdered By: Catherine Preciado on 05-26-2025 Nucleated RBC/100 WBC (Bld) [Ratio] 0 % 0-5 [facility] Platelet countOrdered By: Beck Preciado on 05-26-2025 Platelets (Bld) [#/Vol] 258 10*3/uL 150-450 [facility] Potassium measurement (mass/ volume)Ordered By: Catherine Preciado on 05-26-2025 Potassium (Unsp spec) [Mass/Vol] 3.7 mmol/L 3.3-5.1 [facility] RBC Auto (Bld) [#/Vol]Ordere d By: Catherine Preciado on 05-26-2025 RBC (Bld) [#/Vol] 4.79 10*6/uL 4.6-6.2 [facility] Serum creatinine measurement (mass/volume)Ordered By: Catherine Preciado on 05-26-2025 Creatinine [Mass/Vol] 1.00 mg/dL 0.70-1.20 [facility] Serum globulin measurementOr dered By: Catherine Preciado on 05-26-2025 Globulin (S) [Mass/Vol] 3.1 g/dL 2.2-4.2 [facility] Serum glucose measurement (m ass/volume)Ordered By: Catherine Preciado on 05-26-2025 Glucose [Mass/Vol] 128 mg/dL High 70-99 [facility] Serum or plasma alanine rivera otransferase (ALT) measurementOrdered By: Catherine Preciado on 05-26-2025 ALT [Catalytic activity/Vol] 34 U/L <47 [facility] Serum or plasma albumin britni urement (mass/volume)Ordered By: Catherine Preciado on 05-26-2025 Albumin [Mass/Vol] 4.2 g/dL 3.5-5.0 [facility] Serum or plasma albumin/glob ulin mass ratioOrdered By: Catherine Preciado on 05-26-2025 Albumin/Globulin [Mass ratio] 1.4 {ratio} 0.9-2.4 [facility] Serum or plasma alkaline addie sphatase measurementOrdered By: Catherine Preciado on 05-26-2025 ALP [Catalytic activity/Vol] 82 U/L 40-129 [facility] Serum or plasma calcium britni urement (mass/volume)Ordered By: Catherine Preciado on 05-26-2025 Calcium [Mass/Vol] 9.1 mg/dL 7.6-11.0 [facility] Serum or plasma urea nitroge n measurement (mass/volume)Ordered By: Catherine Preciado on 05-26-2025 Urea nitrogen [Mass/Vol] 17 mg/dL 4-19 [facility] Sodium levelOrdered By: Gloria Preciado on 05-26-2025 Sodium [Moles/Vol] 138 mmol/L 133-145 [facility] Total proteinOrdered By: Warren Preciado on 05-26-2025 Protein [Mass/Vol] 7.4 g/dL 5.9-8.4 [facility] White blood cell (WBC) count Ordered By: Catherine Preciado on 05-26-2025 WBC (Bld) [#/Vol] 8.7 10*3/uL 4.4-11.0 [facility] OT General Evaluationon 04-22 OT General Evaluation [facility] [address] [place] [address] / REHABILITATION SERVICES INITIAL EVALUATION MR#: [id number] Acct: [id number] Name: HOLLIS MASCORRO Rep #: [id number] : 1965 59 From: Tatum Atkins OTR/L, CHT Referring DrFina: OUT OF TOWN DOCTOR Status: REG R CR Insurance: JAYDEN Gonzalez Date: SELF PAY INSURANCE Patient's Visit Information Visit Information Visit Information: HOLLIS MASCORRO is a 59 year old M, referred to Occupational Therapy by CHARISSA CORLEY, with a diagnosis of left IF radial collateral lig. Date of Evaluation: 05/18/25 Occupational Therapist: Tatum Atkins, OTR/Elisa, CHT Subjective Subjective: This 59 year old male was seen for OT eval with dx of traumatic rupture of radial collateral ligament of right IF. Pt states DOI was November 2023. 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 pt states following failed conservative therapy. pt did see Dr. Gaurav Pate for Left IF radial collateral ligament reconstruction using palmaris longus autograft- tenolysis of EDC and EIP of IF. pt is right handed. 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 pt arrives 2 weeks and 2 days s/p. ROM MP: right IF 0/85 left -5/15 PIP: right IF 0/93 left 0/40 DIP: right 0/60 left 0/35 Strength Slimer: right 90# left NT Lateral Pinch: right 22# left NT Tripod Pinch: right 22# left NT Strength Comments: will test strength at later date Edema PIP: right IF 7.0 left 7.5 Sensation Sensation Comments: denies Quick DASH-Disab of Arm,Shoulder Hand Quick DASH Score: 30.0000 Goals Goal:Daily scar massage when approriate: Yes Goal:ROM equal to unaffected hand: Yes Goal:Slimer/Pinch strength at least 75% of unaffected hand: Yes Comment: will not initiate until week 8 or otherwise indicated by Goal:No pain with affected hand use: Yes Goal:PIP Circumferences equal to unaffected hand: Yes Goal:Full use of affected hand in daily activities including work: Yes Goal:Decrease scar hypersensitivity: Yes Rehabilitation General Assessment: pt arrives 2 weeks and 2 days s/p Left IF radial collateral ligament reconstruction using palmaris longus autograft- tenolysis of EDC and EIP of IF. pt is unbale to use left UE for ADLs and IADLs at this time due to newly healing structures. Pt demo need for skilled OT services 1-2x week for 8 weeks to return pt to functional use of left UE. Today therapist ed. pt on surgical guidelines, reviewed use of orthosis, and ed. pt on edema control. pt demo understanding and agree to POC. Rehabilitation Potential: Good Anticipated Interventions Anticipated Interventions: Early Active Motion, A/AAROM/PROM, Strengthening, Scar Care, Triggerpoint Release, Modalities, Orthoses, Joint Protection/Energy Conservation, Ergonomic Education, Education re assistive Equipment, Education re Diagnosis, Caregiver Training and Home Program Visit Plan Frequency: 1-2x /Week Duration: 2 Months General Plan: Phase 1: Day 0-14 splint all times phase 2 ( week 2-4) early mobilization Splint to custom orthosis (MP ext) allowing PIP and DIP motion- May begin protected AROM of MCP joint in flexion/extension only Night use: splint Shashi Loop Option: introduce wide shashi loop splint during the day to allow for controlled motion while preventing ulnar deviation Phase 3: Intermediate Recovery (week 5-8) daytime: continue shashi loop splint for protection during light activity nighttime: may contnue MP extension splint if instability or painful Goal gradual increase in MCP joint motion wile maintaining ligament integrity Phase 4 late recovery (week 8-12) D/C splint if MCP joint is stable and pain-free Functional splint: optional use of shashi loop during high-risk activity ( gripping/lifting) Therapy focus on strengthening and proprioception: TEXT: Thank you for the opportunity to evaluate your patient. For Medicare and Medicare HMO plans, please review the plan of care and approve it. It will need to be FAXED BACK to us at [phone] for Medicare purposes. Please let me know if there are questions or concerns regarding this plan of care. Physician Signature: Date: _ 05/19/25 1159 CC: Dr. Kaden Diamond MD; CHARISSA CORLEY AYAKA Signed For Medicare only, by signing this I certify the plan of care. ___ Physicians Signature Date [facility] Office Visiton 05-16-2025 Follow-up visit [id number] Hollis Mascorro 1965 M Date Provider Department Center 05/16/2025 [id number] CORLEY [facility] GRN ORT None No family history on file Level of Service:31377 [place] POSTOP FOLLOW UP VISIT RELATED TO ORIGINAL PX Reason for Visit and Comments: Post-op [483] - Left index MCP radial collateral ligament reconstruction using palmaris longus autograft and Tenolysis EDC and EIP left index finger Normal [facility] Progress Noteon 05-16-2025 Progress Note Subjective: Hollis is approximately 2 week(s) s/p Left index [...] collateral ligament 2. S/P ligament repair Plan Hollis is healing his incision well without signs [...] To follow protocol. Dr. Nolasco/I will see Hollis back in 4 weeks to see how he is doing. Hollis knows to call the office with any questions or concerns in the interim. Future Imaging: NONE Electronically signed by Charissa Corley PA-C to Karl Nolasco M.D. Hand & Upper Extremity Surgery 05/16/2025 at 3:38 PM. (Please note that portions of this note may have been completed with a voice recognition program. Efforts were made to edit the dictations but occasionally words are mis-transcribed.) [facility] 36on 05-11-2025 36 Faxed and scanned to [facility] 36 Patient would like h is PT/OT order to be faxed to [facility] Physical therapy. States that location is closer and easier for him. FAX: [phone] Attn: Vaishnavi Atkins [facility] Office Visiton 05-09-2025 Follow-up visit [id number] Hollis Mascorro 1965 M Date Provider Department Center 05/09/2025 [id number] CORLEY [facility] GRN ORT None No family history on file Level of Service:49837 [place] POSTOP FOLLOW UP VISIT RELATED TO ORIGINAL PX Reason for Visit and Comments: Post-op [483] - Left index MCP radial collateral ligament reconstruction using palmaris longus autograft and Tenolysis EDC and EIP left index finger on 05/02/25 [facility] Progress Noteon 05-09-2025 Progress Note [facility] [address] [facility] [address] Dept: [phone] Dept OCCUPATIONAL THERAPY Orthotic Only Evaluation Patient Name: Hollis Mascorro : 1965 Date of Service: 05/09/2025 Referring Provider: Karl Nolasco MD Diagnosis: Traumatic rupture of radial collateral ligament Visit Info / PMH Hollis Mascorro is a 59 y.o. male presents [...] of formal therapy. Reason for Referral: Custom [id number] MP extension with IP joints free to move-confirmed by Dr. Nolasco. Treatment Guidelines: Protocol in op note. Paper copy given to patient is a will continue with a hand specialist closer to their home. 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 Precautions/Red Flags: Gentle MP AROM initiated at week #2. No strengthening until the 8-week esteban per protocol. Subjective Chief complaints: 0/10 pain currently Knowledge of HEP/splint wear/care: Independent Knowledge of condition/precautions/res trictions: Independent Objective ROM: IP joints of digits [...] move. Splinting: Fabrication Splinting Education: Fitting, Donning, Poplar, Wear schedule, Precautions Splinting Comments: Patient satisfied [...] Splint Time Entry: 37 Vikas Tran OT [facility] Progress Note Subjective: Hollis is approximately 6 day(s) s/p Left index [...] like to attend formal therapy closer to [place] where he lives. He is accompanied today by his . 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 He states [...] to Occupational Therapy Plan I would like Hollis to be fit with custom splint with [...] given: To follow protocol. I will see Hollis back in 1 week to see how he is doing. Hollis knows to call the office with any questions or concerns in the interim. Future Imaging: NONE Electronically signed by Charissa Corley PA-C to Karl Nolasco M.D. Hand & Upper Extremity Surgery 05/09/2025 at 3:04 PM. (Please note that portions of this note may have been completed with a voice recognition program. Efforts were made to edit the dictations but occasionally words are mis-transcribed.) [facility] 36on 05-03-2025 36 Fax successfully and paperwork scanned into the chart [facility] 36 Paperwork completed and fax pending awaiting confirmation [facility] Airwayon 05-02-2025 CHRISTOPHER Plascencia CRNA 05/02/2025 8:07 AM Airway Date/Time: 05/02/2025 7:34 AM Reason: scheduled General Information and Staff Patient location during procedure: Procedural Performed: SRNA Patient Condition Indications for airway management: anesthesia Patient position: sniffing Sedation level: Asleep Final Airway Details Preoxygenated: yes Final airway type: supraglottic airway Successful airway: Igel Size: 4 Number of attempts at approach: 1 [facility] Nursing Noteon 05-02-2025 Nursing Note Pt dressed with tom le assist-Tolerated activity well. States he is ready to go home. Normal [facility] Nursing Note Homegoing isntrucito ns given to pt and spouse verbally and written. Both verbalize understanding, no questions at this time. Pt set up on side of cart-denies any dizziness,pain,nausea. Normal [facility] Nursing Note Pt awake and drinkin g soda-tolerating well. Normal [facility] Nursing Note Pt opens eyes and an swers questions appropriately. Normal [facility] Nursing Note Pt received from OR via cart, spont. Resp. With SKATESMAN in attendance. Placed on monitor. Monitor alarms on in PACU Normal [facility] Op Noteon 05-02-2025 Op Note [facility] OR [address] [address] Dept: [phone] Loc: [phone] Operative Report Patient Name: Hollis Mascorro Date of : 1965 Date of [...] after intra operative cultures obtained Indications: Mr. Hollis Mascorro is a 59 y.o. year-old male who presents today for surgical intervention. I have discussed with him, preoperatively, the complications, limitations, expectations, alternatives, and risks of surgical intervention which he has demonstrated understanding. No guarantees were given or implied. After having all of his questions answered to his satisfaction, Mr. Hollis Mascorro has provided written informed consent to proceed. Please see previous notes for full operative risk discussion. Procedure: Hollis Mascorro was identified in the preoperative waiting [...] patient's ASA was verified by the nurse boot maker and the anesthesia staff. Fire risk was [...] joint was augustina irrigated normal saline. The [place] RCL tissue was repaired in an imbricated fashion over top of the reconstruction using 3-0 FiberWire suture. The sagittal band was repaired using 3-0 FiberWire suture and the tourniquet plated. The wound was irrigated and saline hemostasis achieved with bipolar cautery and gentle compression. The skin was closed in layers followed by an MCP blocking splint. Mr. Hollis Mascorro was taken to the recovery room in stable condition. POST OPERATIVE PLAN Phase 1: Immediate Postoperative (Days 0-14) Splint Type: Forearm-based radial gutter splint Po (more content not included)... [facility] Peripheral Blockon 5 CHRISTOPHER Plascencia CRNA 05/02/2025 8:05 AM Peripheral Block Time Out: 05/02/2025 7:11 AM Patient location during procedure: Procedural Start time: 05/02/2025 7:12 AM End time: 05/02/2025 7:18 AM Reason for block: at surgeon's request and post-op pain management Staffing Performed: ZULEYMA Resident/SKATESMAN: CHRISTOPHER Plascencia CRNA, RN Preanesthetic Checklist Completed: patient identified, IV [...] - IntraVENous 2 mg - 05/02/2025 7:12:00 AMdexAMETHasone-bupivacai ne-epinephrine (TAP) syringe - Injection 25 mL - 05/02/2025 7:12:00 AM [facility] 2904-27-2025 29 Addended by: CAROLYN RODRIGUEZ on: 04/27/2025 01:43 PM Modules accepted: Orders [facility] 36on 04-27-2025 36 Custom splint order placed [facility] [address] anothe r order for a custom splint? Please hand based radial gutter [facility] [id number] 04-18-2025 [id number] Medication List Accurate as of April 18, [...] any instructions given to you by Dr. GAURAV WHITNEY AT YOUR PHARMACY AND SHOWER THE [...] your scheduled surgery time. Please bring your [facility] Surgical folder and medication list with you day of surgery. We encourage you to write down any questions you may have for the surgeon, anesthesiologist, or other members of the surgical team and bring it with you the day of surgery. Please bring photo ID and insurance information. Lauryn: Enter through Door number 2 Registration department is located here Patient will be escorted to [facility] [place] does not open before 6am [facility] 36on 04-03-2025 36 Spoke with the pt. Clarified PAT and IPO time/day/location. Pt gave verbal understanding. [facility] 36 I called and spoke w ith the patient, I told him no a custom splint is not needed prior surgery. He had questions about PAT and arrival time, I told him I send the message to Steffanie, she will probably call him tomorrow. [facility] 36 This patient called to schedule a splint appointment. He said he thought [...] we would need another order. Thank you! [facility] Absolute lymphocyte countOrd ered By: Catherine Preciado on 03-27-2025 Lymphocytes Auto (Unsp spec) [#/Vol] 1.69 10*3/uL 0.83-4.51 [facility] Absolute neutrophil countOrd ered By: Catherine Preciado on 03-27-2025 Neutrophils (Bld) [#/Vol] 3.7 10*3/uL 2.0-7.7 [facility] Anion gap in Serum or Plasma Ordered By: Catherine Preciado on 03-27-2025 Anion gap [Moles/Vol] 10 mmol/L 5-15 [facility] Automated lymphocyte count a s percentage of total leukocytesOrdered By: Catherine Preciado on 03-27-2025 Lymphocytes/100 WBC Auto (Unsp spec) 26.3 % 19-41 [facility] BUN/creatinine ratioOrdered By: Catherine Preciado on 03-27-2025 Urea nitrogen/Creatinine [Mass ratio] 14.2 mg/mg 10-20 [facility] Basophil percentageOrdered B y: Catherine Ozzy on 03-27-2025 Basophils/100 WBC (Bld) 0.8 % 0-1 [facility] Bilirubin, totalOrdered By: Catherine Ozzy on 03-27-2025 Bilirubin [Mass/Vol] 0.47 mg/dL 0.00-1.30 [facility] CBC W/Diff, Automatedon Absolute Lymph 1.69 X10 3/uL Normal 0.83-4.51 [facility] Comment on above: Performed By: #### L 500.4050, L100.0100 ####[facility] [address] [place], [address] Absolute Neut 3.7 X10 3/uL Normal 2.0-7.7 [facility] Comment on above: Performed By: #### L 500.4050, L100.0100 ####[facility] [address] [place], [address] Basophils/100 WBC (Bld) 0.8 % Normal 0-1 [facility] Comment on above: Performed By: #### L 500.4050, L100.0100 ####[facility] [address] [place], [address] Eosinophils/100 WBC (Bld) 4.7 % Normal 0-5 [facility] Comment on above: Performed By: #### L 500.4050, L100.0100 ####[facility] [address] [place], [address] Erythrocyte distribution width (RBC) [Ratio] 13.4 % Normal 11.6-14.6 [facility] Comment on above: Performed By: #### L 500.4050, L100.0100 ####[facility] [address] [place], [address] Hematocrit (Bld) [Volume fraction] 45.8 % Normal 40-54 [facility] Comment on above: Performed By: #### L 500.4050, L100.0100 ####[facility] [address] [place], [address] Hemoglobin (Bld) [Mass/Vol] 15.5 g/dL Normal 13.0-16.5 [facility] Comment on above: Performed By: #### L 500.4050, L100.0100 ####[facility] [address] [place], [address] IG% 0.500 Normal 0.0-0.9 [facility] Comment on above: Result Comment: IG% - Immature Granulocytes (promyelocytes, myelocytes and metamyelocytes) > 1% indicates that a LEFT SHIFT is Present. Performed By: #### L 500.4050, L100.0100 ####[facility] [address] [place], [address] Lymphocytes/100 WBC (Bld) 26.3 % Normal 19-41 [facility] Comment on above: Performed By: #### L 500.4050, L100.0100 ####[facility] [address] [place], [address] MCH (RBC) [Entitic mass] 32.3 pg High 27.0-32.0 [facility] Comment on above: Performed By: #### L 500.4050, L100.0100 ####[facility] [address] [place], [address] MCHC (RBC) [Mass/Vol] 33.8 g/dL Normal 32-36 [facility] Comment on above: Performed By: #### L 500.4050, L100.0100 ####[facility] [address] [place], [address] MCV (RBC) [Entitic vol] 95.4 fL High 80-94 [facility] Comment on above: Performed By: #### L 500.4050, L100.0100 ####[facility] [address] [place], [address] Monocytes/100 WBC (Bld) 10.9 % High 0-10 [facility] Comment on above: Performed By: #### L 500.4050, L100.0100 ####[facility] [address] [place], [address] Neutrophils/100 WBC (Bld) 56.8 % Normal 47-70 [facility] Comment on above: Performed By: #### L 500.4050, L100.0100 ####[facility] [address] [place], [address] Nucleated RBC (Bld) [#/Vol] 0 10*3/uL Normal 0-5 [facility] Comment on above: Performed By: #### L 500.4050, L100.0100 ####[facility] [address] [place], [address] Platelet mean volume (Bld) [Entitic vol] 10.4 fL Normal 6.2-12.0 [facility] Comment on above: Performed By: #### L 500.4050, L100.0100 ####[facility] [address] [place], [address] Platelets (Bld) [#/Vol] 244 10*3/uL Normal 150-450 [facility] Comment on above: Performed By: #### L 500.4050, L100.0100 ####[facility] [address] [place], [address] RBC (Bld) [#/Vol] 4.80 10*6/uL Normal 4.6-6.2 [facility] Comment on above: Performed By: #### L 500.4050, L100.0100 ####[facility] [address] [place], [address] RDW SD 47.0 fl High 35.1-43.9 [facility] Comment on above: Performed By: #### L 500.4050, L100.0100 ####[facility] [address] [place], [address] WBC (Bld) [#/Vol] 6.4 10*3/uL Normal 4.4-11.0 [facility] Comment on above: Performed By: #### L 500.4050, L100.0100 ####[facility] [address] [place], [address] Carbon dioxide, total [Moles /volume] in Central venous bloodOrdered By: Catherine Preciado on 03-27-2025 CO2 [Moles/Vol] 23.4 mmol/L 21.0-32.0 [facility] Chloride assayOrdered By: Beck Preciado on 03-27-2025 Chloride [Moles/Vol] 109 mmol/L High 98-108 [facility] Comprehensive Metabolic Prof ilon 03-27-2025 Albumin [Mass/Vol] 4.2 g/dL Normal 3.5-5.0 [facility] Comment on above: Performed By: #### L 500.4050, L100.0100 ####[facility] [address] [place], [address] Albumin/Globulin [Mass ratio] 1.5 {ratio} Normal 0.9-2.4 [facility] Comment on above: Performed By: #### L 500.4050, L100.0100 ####[facility] [address] [place], [address] ALK PHOS 92 U/L Normal 40-129 [facility] Comment on above: Performed By: #### L 500.4050, L100.0100 ####[facility] [address] [place], [address] ALT [Catalytic activity/Vol] 32 U/L Normal <=46 [facility] Comment on above: Performed By: #### L 500.4050, L100.0100 ####[facility] [address] [place], [address] AST [Catalytic activity/Vol] 32 U/L Normal <=37 [facility] Comment on above: Performed By: #### L 500.4050, L100.0100 ####[facility] [address] [place], [address] Bilirubin [Mass/Vol] 0.47 mg/dL Normal 0.00-1.30 [facility] Comment on above: Performed By: #### L 500.4050, L100.0100 ####[facility] [address] [place], [address] BUN/CRE 14.2 RATIO Normal 10-20 [facility] Comment on above: Performed By: #### L 500.4050, L100.0100 ####[facility] [address] [place], [address] Calcium [Mass/Vol] 9.2 mg/dL Normal 7.6-11.0 [facility] Comment on above: Performed By: #### L 500.4050, L100.0100 ####[facility] [address] [place], [address] Chloride [Moles/Vol] 109 mmol/L High 98-108 [facility] Comment on above: Performed By: #### L 500.4050, L100.0100 ####[facility] [address] [place], [address] CO2 [Moles/Vol] 23.4 mmol/L Normal 21.0-32.0 [facility] Comment on above: Performed By: #### L 500.4050, L100.0100 ####[facility] [address] [place], [address] Creatinine [Mass/Vol] 1.36 mg/dL High 0.70-1.20 [facility] Comment on above: Performed By: #### L 500.4050, L100.0100 ####[facility] [address] [place], [address] GAP 10 Normal 5-15 [facility] Comment on above: Performed By: #### L 500.4050, L100.0100 ####[facility] [address] [place], [address] GFR/1.73 sq M.predicted among non-blacks MDRD (S/P/Bld) [Vol rate/Area] 61 mL/min/{1.73_m2} Normal >60 [facility] Comment on above: Result Comment: mL/m in/1.73m2 CKD-EPI Creatinine Equation (2020) Performed By: #### L 500.4050, L100.0100 ####[facility] [address] [place], [address] Globulin (S) [Mass/Vol] 2.9 g/dL Normal 2.2-4.2 [facility] Comment on above: Performed By: #### L 500.4050, L100.0100 ####[facility] [address] [place], [address] Glucose [Mass/Vol] 135 mg/dL High 70-99 [facility] Comment on above: Performed By: #### L 500.4050, L100.0100 ####[facility] [address] [place], [address] Potassium [Moles/Vol] 4.1 mmol/L Normal 3.3-5.1 [facility] Comment on above: Performed By: #### L 500.4050, L100.0100 ####[facility] [address] [place], [address] Sodium [Moles/Vol] 143 mmol/L Normal 133-145 [facility] Comment on above: Performed By: #### L 500.4050, L100.0100 ####[facility] [address] [place], [address] T PROT 7.1 g/dL Normal 5.9-8.4 [facility] Comment on above: Performed By: #### L 500.4050, L100.0100 ####[facility] [address] [place], [address] Urea nitrogen [Mass/Vol] 19 mg/dL Normal 4-19 [facility] Comment on above: Performed By: #### L 500.4050, L100.0100 ####[facility] [address] [place], [address] Eosinophil percentageOrdered By: Catherine Preciado on 03-27-2025 Eosinophils/100 WBC (Bld) 4.7 % 0-5 [facility] Erythrocyte distribution wid th ratioOrdered By: [facility] Ozzy on 03-27-2025 Erythrocyte distribution width (RBC) [Ratio] 13.4 % 11.6-14.6 [facility] Erythrocyte distribution wid th standard deviationOrdered By: Catherine Preciado on 03-27-2025 Erythrocyte distribution width (RBC) [Ratio] 47.0 fl High 35.1-43.9 [facility] Glomerular filtration rate ( GFR) estimation/1.73 sq m using serum, plasma, or whole bOrdered By: Catherine Preciado on 03-27-2025 GFR/1.73 sq M.predicted among non-blacks MDRD (S/P/Bld) [Vol rate/Area] 61 mL/min/{1.73_m2} >60 [facility] Comment on above: mL/min/1.73m2 CKD-EP I Creatinine Equation (2020) Hematocrit Auto (Bld) [Volum e fraction]Ordered By: Catherine Preciado on 03-27-2025 Hematocrit (Bld) [Volume fraction] 45.8 % 40-54 [facility] Hemoglobin measurementOrdere d By: Catherine Preciado on 03-27-2025 Hemoglobin (Bld) [Mass/Vol] 15.5 g/dL 13.0-16.5 [facility] Immature granulocytes/100 WB C Auto (Bld)Ordered By: Catherine Preciado on 03-27-2025 Immature granulocytes/100 WBC (Bld) 0.500 % 0.0-0.9 [facility] Comment on above: IG% - Immature Granu locytes (promyelocytes, myelocytes and metamyelocytes) > 1% indicates that a LEFT SHIFT is Present. Laboratory - Chemistry and C hemistry - challengeOrdered By: Catherine Preciado on 03-27-2025 AST [Catalytic activity/Vol] 32 U/L <38 [facility] MCV (mean corpuscular volume ) determinationOrdered By: Catherine Preciado on 03-27-2025 MCV (RBC) [Entitic vol] 95.4 fL High 80-94 [facility] Mean corpuscular hemoglobin (MCH) determinationOrdered By: Catherine Preciado on 03-27-2025 MCH (RBC) [Entitic mass] 32.3 pg High 27.0-32.0 [facility] Mean corpuscular hemoglobin concentration (MCHC) determinationOrdered By: Catherine Preciado on 03-27-2025 MCHC (RBC) [Mass/Vol] 33.8 g/dL 32-36 [facility] Mean platelet volume determi nationOrdered By: Catherine Preciado on 03-27-2025 Platelet mean volume (Bld) [Entitic vol] 10.4 fL 6.2-12.0 [facility] Monocyte percentageOrdered B y: Catherine Preciado on 03-27-2025 Monocytes/100 WBC (Bld) 10.9 % High 0-10 [facility] Neutrophil percentageOrdered By: Catherine Preciado on 03-27-2025 Neutrophils/100 WBC (Bld) 56.8 % 47-70 [facility] Nucleated red blood cell per centageOrdered By: Catherine Preciado on 03-27-2025 Nucleated RBC/100 WBC (Bld) [Ratio] 0 % 0-5 [facility] Platelet countOrdered By: Beck Preciado on 03-27-2025 Platelets (Bld) [#/Vol] 244 10*3/uL 150-450 [facility] Potassium measurement (mass/ volume)Ordered By: Catherine Preciado on 03-27-2025 Potassium (Unsp spec) [Mass/Vol] 4.1 mmol/L 3.3-5.1 [facility] RBC Auto (Bld) [#/Vol]Ordere d By: Catherine Preciado on 03-27-2025 RBC (Bld) [#/Vol] 4.80 10*6/uL 4.6-6.2 [facility] Serum creatinine measurement (mass/volume)Ordered By: Catherine Preciado on 03-27-2025 Creatinine [Mass/Vol] 1.36 mg/dL High 0.70-1.20 [facility] Serum globulin measurementOr dered By: Catherine Preciado on 03-27-2025 Globulin (S) [Mass/Vol] 2.9 g/dL 2.2-4.2 [facility] Serum glucose measurement (m ass/volume)Ordered By: Catherine Preciado on 03-27-2025 Glucose [Mass/Vol] 135 mg/dL High 70-99 [facility] Serum or plasma alanine rivera otransferase (ALT) measurementOrdered By: Catherine Preciado on 03-27-2025 ALT [Catalytic activity/Vol] 32 U/L <47 [facility] Serum or plasma albumin britni urement (mass/volume)Ordered By: Catherine Preciado on 03-27-2025 Albumin [Mass/Vol] 4.2 g/dL 3.5-5.0 [facility] Serum or plasma albumin/glob ulin mass ratioOrdered By: Catherine Preciado on 03-27-2025 Albumin/Globulin [Mass ratio] 1.5 {ratio} 0.9-2.4 [facility] Serum or plasma alkaline addie sphatase measurementOrdered By: Catherine Preciado on 03-27-2025 ALP [Catalytic activity/Vol] 92 U/L 40-129 [facility] Serum or plasma calcium britni urement (mass/volume)Ordered By: Catherine Preciado on 03-27-2025 Calcium [Mass/Vol] 9.2 mg/dL 7.6-11.0 [facility] Serum or plasma urea nitroge n measurement (mass/volume)Ordered By: Catherine Preciado on 03-27-2025 Urea nitrogen [Mass/Vol] 19 mg/dL 4-19 [facility] Sodium levelOrdered By: Gloria Preciado on 03-27-2025 Sodium [Moles/Vol] 143 mmol/L 133-145 [facility] Total proteinOrdered By: Warren Preciado on 03-27-2025 Protein [Mass/Vol] 7.1 g/dL 5.9-8.4 [facility] White blood cell (WBC) count Ordered By: Catherine Preciado on 03-27-2025 WBC (Bld) [#/Vol] 6.4 10*3/uL 4.4-11.0 [facility] Absolute lymphocyte countOrd ered By: Catherine Preciado on 12-29-2024 Lymphocytes Auto (Unsp spec) [#/Vol] 1.97 10*3/uL 0.83-4.51 [facility] Absolute neutrophil countOrd ered By: Catherine Preciado on 12-29-2024 Neutrophils (Bld) [#/Vol] 5.1 10*3/uL 2.0-7.7 [facility] Anion gap in Serum or Plasma Ordered By: Catherine Preciado on 12-29-2024 Anion gap [Moles/Vol] 11 mmol/L 5-15 [facility] Automated lymphocyte count a s percentage of total leukocytesOrdered By: Catherine Preciado on 12-29-2024 Lymphocytes/100 WBC Auto (Unsp spec) 22.6 % 19-41 [facility] BUN/creatinine ratioOrdered By: Catherine Preciado on 12-29-2024 Urea nitrogen/Creatinine [Mass ratio] 16.8 mg/mg 10-20 [facility] Basophil percentageOrdered B y: Catherine Preciado on 12-29-2024 Basophils/100 WBC (Bld) 1.0 % 0-1 [facility] Bilirubin, totalOrdered By: Catherine Preciado on 12-29-2024 Bilirubin [Mass/Vol] 0.31 mg/dL 0.00-1.30 [facility] CBC W/Diff, Automatedon 04-1 0-2024 Absolute Lymph 1.97 X10 3/uL Normal 0.83-4.51 [facility] Comment on above: Performed By: #### L 500.4050, L100.0100 #### [facility] [address] [place], [address] Absolute Neut 5.1 X10 3/uL Normal 2.0-7.7 [facility] Comment on above: Performed By: #### L 500.4050, L100.0100 #### [facility] [address] [place], [address] Basophils/100 WBC (Bld) 1.0 % Normal 0-1 [facility] Comment on above: Performed By: #### L 500.4050, L100.0100 #### [facility] [address] [place], [address] Eosinophils/100 WBC (Bld) 3.2 % Normal 0-5 [facility] Comment on above: Performed By: #### L 500.4050, L100.0100 #### [facility] [address] [place], [address] Erythrocyte distribution width (RBC) [Ratio] 12.9 % Normal 11.6-14.6 [facility] Comment on above: Performed By: #### L 500.4050, L100.0100 #### [facility] [address] [place], [address] Hematocrit (Bld) [Volume fraction] 45.5 % Normal 40-54 [facility] Comment on above: Performed By: #### L 500.4050, L100.0100 #### [facility] [address] [place], [address] Hemoglobin (Bld) [Mass/Vol] 15.8 g/dL Normal 13.0-16.5 [facility] Comment on above: Performed By: #### L 500.4050, L100.0100 #### [facility] [address] [place], [address] IG% 0.800 Normal 0.0-0.9 [facility] Comment on above: Result Comment: IG% - Immature Granulocytes (promyelocytes, myelocytes and metamyelocytes) > 1% indicates that a LEFT SHIFT is Present. Performed By: #### L 500.4050, L100.0100 #### [facility] [address] [place], [address] Lymphocytes/100 WBC (Bld) 22.6 % Normal 19-41 [facility] Comment on above: Performed By: #### L 500.4050, L100.0100 #### [facility] [address] [place], [address] MCH (RBC) [Entitic mass] 32.6 pg High 27.0-32.0 [facility] Comment on above: Performed By: #### L 500.4050, L100.0100 #### [facility] [address] [place], [address] MCHC (RBC) [Mass/Vol] 34.7 g/dL Normal 32-36 [facility] Comment on above: Performed By: #### L 500.4050, L100.0100 #### [facility] [address] [place], [address] MCV (RBC) [Entitic vol] 94.0 fL Normal 80-94 [facility] Comment on above: Performed By: #### L 500.4050, L100.0100 #### [facility] [address] [place], [address] Monocytes/100 WBC (Bld) 14.3 % High 0-10 [facility] Comment on above: Performed By: #### L 500.4050, L100.0100 #### [facility] [address] [place], [address] Neutrophils/100 WBC (Bld) 58.1 % Normal 47-70 [facility] Comment on above: Performed By: #### L 500.4050, L100.0100 #### [facility] [address] [place], [address] Nucleated RBC (Bld) [#/Vol] 0 10*3/uL Normal 0-5 [facility] Comment on above: Performed By: #### L 500.4050, L100.0100 #### [facility] [address] [place], [address] Platelet mean volume (Bld) [Entitic vol] 10.1 fL Normal 6.2-12.0 [facility] Comment on above: Performed By: #### L 500.4050, L100.0100 #### [facility] [address] [place], [address] Platelets (Bld) [#/Vol] 249 10*3/uL Normal 150-450 [facility] Comment on above: Performed By: #### L 500.4050, L100.0100 #### [facility] [address] [place], [address] RBC (Bld) [#/Vol] 4.84 10*6/uL Normal 4.6-6.2 [facility] Comment on above: Performed By: #### L 500.4050, L100.0100 #### [facility] [address] [place], [address] RDW SD 44.2 fl High 35.1-43.9 [facility] Comment on above: Performed By: #### L 500.4050, L100.0100 #### [facility] [address] [place], [address] WBC (Bld) [#/Vol] 8.7 10*3/uL Normal 4.4-11.0 [facility] Comment on above: Performed By: #### L 500.4050, L100.0100 #### [facility] [address] [place], [address] Carbon dioxide, total [Moles /volume] in Central venous bloodOrdered By: Catherine Preciado on 12-29-2024 CO2 [Moles/Vol] 23.5 mmol/L 21.0-32.0 [facility] Chloride assayOrdered By: Beck Preciado on 12-29-2024 Chloride [Moles/Vol] 105 mmol/L 98-108 [facility] Comprehensive Metabolic Prof ilon 12-29-2024 Albumin [Mass/Vol] 4.2 g/dL Normal 3.5-5.0 [facility] Comment on above: Performed By: #### L 500.4050, L100.0100 #### [facility] [address] [place], [address] Albumin/Globulin [Mass ratio] 1.3 {ratio} Normal 0.9-2.4 [facility] Comment on above: Performed By: #### L 500.4050, L100.0100 #### [facility] [address] [place], [address] ALK PHOS 82 U/L Normal 40-129 [facility] Comment on above: Performed By: #### L 500.4050, L100.0100 #### [facility] [address] [place], [address] ALT [Catalytic activity/Vol] 25 U/L Normal <=46 [facility] Comment on above: Performed By: #### L 500.4050, L100.0100 #### [facility] [address] [place], [address] AST [Catalytic activity/Vol] 26 U/L Normal <=37 [facility] Comment on above: Performed By: #### L 500.4050, L100.0100 #### [facility] [address] [place], [address] Bilirubin [Mass/Vol] 0.31 mg/dL Normal 0.00-1.30 [facility] Comment on above: Performed By: #### L 500.4050, L100.0100 #### [facility] [address] [place], [address] BUN/CRE 16.8 RATIO Normal 10-20 [facility] Comment on above: Performed By: #### L 500.4050, L100.0100 #### [facility] [address] [place], [address] Calcium [Mass/Vol] 9.1 mg/dL Normal 7.6-11.0 [facility] Comment on above: Performed By: #### L 500.4050, L100.0100 #### [facility] [address] [place], [address] Chloride [Moles/Vol] 105 mmol/L Normal 98-108 [facility] Comment on above: Performed By: #### L 500.4050, L100.0100 #### [facility] [address] [place], [address] CO2 [Moles/Vol] 23.5 mmol/L Normal 21.0-32.0 [facility] Comment on above: Performed By: #### L 500.4050, L100.0100 #### [facility] [address] [place], [address] Creatinine [Mass/Vol] 1.06 mg/dL Normal 0.70-1.20 [facility] Comment on above: Performed By: #### L 500.4050, L100.0100 #### [facility] [address] [place], [address] GAP 11 Normal 5-15 [facility] Comment on above: Performed By: #### L 500.4050, L100.0100 #### [facility] [address] [place], [address] GFR/1.73 sq M.predicted among non-blacks MDRD (S/P/Bld) [Vol rate/Area] 82 mL/min/{1.73_m2} Normal >60 [facility] Comment on above: Result Comment: mL/m in/1.73m2 CKD-EPI Creatinine Equation (2020) Performed By: #### L 500.4050, L100.0100 #### [facility] [address] [place], [address] Globulin (S) [Mass/Vol] 3.1 g/dL Normal 2.2-4.2 [facility] Comment on above: Performed By: #### L 500.4050, L100.0100 #### [facility] [address] [place], [address] Glucose [Mass/Vol] 96 mg/dL Normal 70-99 [facility] Comment on above: Performed By: #### L 500.4050, L100.0100 #### [facility] [address] [place], [address] Potassium [Moles/Vol] 4.3 mmol/L Normal 3.3-5.1 [facility] Comment on above: Performed By: #### L 500.4050, L100.0100 #### [facility] [address] [place], [address] Sodium [Moles/Vol] 139 mmol/L Normal 133-145 [facility] Comment on above: Performed By: #### L 500.4050, L100.0100 #### [facility] [address] [place], [address] T PROT 7.3 g/dL Normal 5.9-8.4 [facility] Comment on above: Performed By: #### L 500.4050, L100.0100 #### [facility] [address] [place], [address] Urea nitrogen [Mass/Vol] 18 mg/dL Normal 4-19 [facility] Comment on above: Performed By: #### L 500.4050, L100.0100 #### [facility] [address] [place], [address] Eosinophil percentageOrdered By: Catherine Preciado on 12-29-2024 Eosinophils/100 WBC (Bld) 3.2 % 0-5 [facility] Erythrocyte distribution wid th (RBC) [Ratio]Ordered By: Catherine Preciado on 12-29-2024 Erythrocyte distribution width (RBC) [Entitic vol] 44.2 fL High 35.1-43.9 [facility] Erythrocyte distribution wid th ratioOrdered By: Catherine Preciado on 12-29-2024 Erythrocyte distribution width (RBC) [Ratio] 12.9 % 11.6-14.6 [facility] Erythrocyte distribution wid th standard deviationOrdered By: Catherine Preciado on 12-29-2024 Erythrocyte distribution width (RBC) [Ratio] 44.2 fl High 35.1-43.9 [facility] GFR/1.73 sq M.predicted derrick g non-blacks MDRD (S/P/Bld) [Vol rate/Area]Ordered By: Catherine Preciado on 12-29-2024 Estimated GFR (MDRD) Non-Af Amer 82 >60 [facility] Comment on above: mL/min/1.73m2 CKD-EP I Creatinine Equation (2020) Glomerular filtration rate ( GFR) estimation/1.73 sq m using serum, plasma, or whole bOrdered By: Catherine Preciado on 12-29-2024 GFR/1.73 sq M.predicted among non-blacks MDRD (S/P/Bld) [Vol rate/Area] 82 mL/min/{1.73_m2} >60 [facility] Comment on above: mL/min/1.73m2 CKD-EP I Creatinine Equation (2020) Hematocrit Auto (Bld) [Volum e fraction]Ordered By: Catherine Preciado on 12-29-2024 Hematocrit (Bld) [Volume fraction] 45.5 % 40-54 [facility] Hemoglobin measurementOrdere d By: Catherine Preciado on 12-29-2024 Hemoglobin (Bld) [Mass/Vol] 15.8 g/dL 13.0-16.5 [facility] Immature granulocytes/100 WB C Auto (Bld)Ordered By: Catherine Preciado on 12-29-2024 Immature granulocytes/100 WBC (Bld) 0.800 % 0.0-0.9 [facility] Comment on above: IG% - Immature Granu locytes (promyelocytes, myelocytes and metamyelocytes) > 1% indicates that a LEFT SHIFT is Present. Laboratory - Chemistry and C hemistry - challengeOrdered By: Catherine Preciado on 12-29-2024 AST [Catalytic activity/Vol] 26 U/L <38 [facility] Lymphocytes Auto (Unsp spec) [#/Vol]Ordered By: Catherine Preciado on 12-29-2024 Lymphocytes (Bld) [#/Vol] 1.97 10*3/uL 0.83-4.51 [facility] Lymphocytes/100 WBC Auto (Un sp spec)Ordered By: Catherine Preciado on 12-29-2024 Lymphocytes/100 WBC (Bld) 22.6 % 19-41 [facility] MCV (mean corpuscular volume ) determinationOrdered By: Catherine Preciado on 12-29-2024 MCV (RBC) [Entitic vol] 94.0 fL 80-94 [facility] Mean corpuscular hemoglobin (MCH) determinationOrdered By: Catherine Preciado on 12-29-2024 MCH (RBC) [Entitic mass] 32.6 pg High 27.0-32.0 [facility] Mean corpuscular hemoglobin concentration (MCHC) determinationOrdered By: Catherine Preciado on 12-29-2024 MCHC (RBC) [Mass/Vol] 34.7 g/dL 32-36 [facility] Mean platelet volume determi nationOrdered By: Catherine Preciado on 12-29-2024 Platelet mean volume (Bld) [Entitic vol] 10.1 fL 6.2-12.0 [facility] Monocyte percentageOrdered B y: Catherine Preciado on 12-29-2024 Monocytes/100 WBC (Bld) 14.3 % High 0-10 [facility] Neutrophil percentageOrdered By: Catherine Preciado on 12-29-2024 Neutrophils/100 WBC (Bld) 58.1 % 47-70 [facility] Nucleated red blood cell per centageOrdered By: Catherine Preciado on 12-29-2024 Nucleated RBC/100 WBC (Bld) [Ratio] 0 % 0-5 [facility] Platelet countOrdered By: Beck Preciado on 12-29-2024 Platelets (Bld) [#/Vol] 249 10*3/uL 150-450 [facility] Potassium (Unsp spec) [Mass/ Vol]Ordered By: Catherine Preciado on 12-29-2024 Potassium [Moles/Vol] 4.3 mmol/L 3.3-5.1 [facility] Potassium measurement (mass/ volume)Ordered By: Catherine Preciado on 12-29-2024 Potassium (Unsp spec) [Mass/Vol] 4.3 mmol/L 3.3-5.1 [facility] RBC Auto (Bld) [#/Vol]Ordere d By: Catherine Preciado on 12-29-2024 RBC (Bld) [#/Vol] 4.84 10*6/uL 4.6-6.2 [facility] Serum creatinine measurement (mass/volume)Ordered By: Catherine Preciado on 12-29-2024 Creatinine [Mass/Vol] 1.06 mg/dL 0.70-1.20 [facility] Serum globulin measurementOr dered By: Catherine Preciado on 12-29-2024 Globulin (S) [Mass/Vol] 3.1 g/dL 2.2-4.2 [facility] Serum glucose measurement (m ass/volume)Ordered By: Catherine Preciado on 12-29-2024 Glucose [Mass/Vol] 96 mg/dL 70-99 [facility] Serum or plasma alanine rivera otransferase (ALT) measurementOrdered By: Catherine Preciado on 12-29-2024 ALT [Catalytic activity/Vol] 25 U/L <47 [facility] Serum or plasma albumin britni urement (mass/volume)Ordered By: Catherine Preciado on 12-29-2024 Albumin [Mass/Vol] 4.2 g/dL 3.5-5.0 [facility] Serum or plasma albumin/glob ulin mass ratioOrdered By: Catherine Preciado on 12-29-2024 Albumin/Globulin [Mass ratio] 1.3 {ratio} 0.9-2.4 [facility] Serum or plasma alkaline addie sphatase measurementOrdered By: Catherine Preciado on 12-29-2024 ALP [Catalytic activity/Vol] 82 U/L 40-129 [facility] Serum or plasma calcium britni urement (mass/volume)Ordered By: Catherine Preciado on 12-29-2024 Calcium [Mass/Vol] 9.1 mg/dL 7.6-11.0 [facility] Serum or plasma urea nitroge n measurement (mass/volume)Ordered By: Catherine Preciado on 12-29-2024 Urea nitrogen [Mass/Vol] 18 mg/dL 4-19 [facility] Sodium levelOrdered By: Gloria Preciado on 12-29-2024 Sodium [Moles/Vol] 139 mmol/L 133-145 [facility] Total proteinOrdered By: Warren Preciado on 12-29-2024 Protein [Mass/Vol] 7.3 g/dL 5.9-8.4 [facility] White blood cell (WBC) count Ordered By: Catherine Preciado on 12-29-2024 WBC (Bld) [#/Vol] 8.7 10*3/uL 4.4-11.0 [facility] Absolute neutrophil countOrd ered By: Catherine Preciado on 10-05-2024 Neutrophils (Bld) [#/Vol] 5.1 10*3/uL 2.0-7.7 [facility] Albumin to globulin ratioOrd ered By: Catherine Preciado on 10-05-2024 Albumin/Globulin [Mass ratio] 1.0 {ratio} 0.9-2.4 [facility] Basophil percentageOrdered B y: Catherine Preciado on 10-05-2024 Basophils/100 WBC (Bld) 0.9 % 0-1 [facility] Bilirubin, totalOrdered By: Catherine Preciado on 10-05-2024 Bilirubin [Mass/Vol] 0.40 mg/dL 0.20-1.00 [facility] Comment on above: For patients on eltr ombopag therapy, use of Dimension Watson TBIL is not recommended. Blood urea nitrogen (BUN)/cr eatinine ratioOrdered By: Catherine Preciado on 10-05-2024 Urea nitrogen/Creatinine [Mass ratio] 16.0 mg/mg 10-20 [facility] CBC W/Diff, Automatedon 09-21 Absolute Lymph 2.23 X10 3/uL Normal 0.83-4.51 [facility] Comment on above: Performed By: #### L 100.0100, L500.4050 #### [facility] [address] [place], [address] Absolute Neut 5.1 X10 3/uL Normal 2.0-7.7 [facility] Comment on above: Performed By: #### L 100.0100, L500.4050 #### [facility] [address] [place], [address] Basophils/100 WBC (Bld) 0.9 % Normal 0-1 [facility] Comment on above: Performed By: #### L 100.0100, L500.4050 #### [facility] [address] [place], [address] Eosinophils/100 WBC (Bld) 2.8 % Normal 0-5 [facility] Comment on above: Performed By: #### L 100.0100, L500.4050 #### [facility] [address] [place], [address] Erythrocyte distribution width (RBC) [Ratio] 13.2 % Normal 11.6-14.6 [facility] Comment on above: Performed By: #### L 100.0100, L500.4050 #### [facility] [address] [place], [address] Hematocrit (Bld) [Volume fraction] 46.7 % Normal 40-54 [facility] Comment on above: Performed By: #### L 100.0100, L500.4050 #### [facility] [address] [place], [address] Hemoglobin (Bld) [Mass/Vol] 16.2 g/dL Normal 13.0-16.5 [facility] Comment on above: Performed By: #### L 100.0100, L500.4050 #### [facility] [address] [place], [address] IG% 0.300 Normal 0.0-0.9 [facility] Comment on above: Result Comment: IG% - Immature Granulocytes (promyelocytes, myelocytes and metamyelocytes) > 1% indicates that a LEFT SHIFT is Present. Performed By: #### L 100.0100, L500.4050 #### [facility] [address] [place], [address] Lymphocytes/100 WBC (Bld) 25.8 % Normal 19-41 [facility] Comment on above: Performed By: #### L 100.0100, L500.4050 #### [facility] [address] [place], [address] MCH (RBC) [Entitic mass] 32.2 pg High 27.0-32.0 [facility] Comment on above: Performed By: #### L 100.0100, L500.4050 #### [facility] [address] [place], [address] MCHC (RBC) [Mass/Vol] 34.7 g/dL Normal 32-36 [facility] Comment on above: Performed By: #### L 100.0100, L500.4050 #### [facility] [address] [place], [address] MCV (RBC) [Entitic vol] 92.8 fL Normal 80-94 [facility] Comment on above: Performed By: #### L 100.0100, L500.4050 #### [facility] [address] [place], [address] Monocytes/100 WBC (Bld) 11.4 % High 0-10 [facility] Comment on above: Performed By: #### L 100.0100, L500.4050 #### [facility] [address] [place], [address] Neutrophils/100 WBC (Bld) 58.8 % Normal 47-70 [facility] Comment on above: Performed By: #### L 100.0100, L500.4050 #### [facility] [address] [place], [address] Nucleated RBC (Bld) [#/Vol] 0 10*3/uL Normal 0-5 [facility] Comment on above: Performed By: #### L 100.0100, L500.4050 #### [facility] [address] [place], [address] Platelet mean volume (Bld) [Entitic vol] 9.6 fL Normal 6.2-12.0 [facility] Comment on above: Performed By: #### L 100.0100, L500.4050 #### [facility] [address] [place], [address] Platelets (Bld) [#/Vol] 263 10*3/uL Normal 150-450 [facility] Comment on above: Performed By: #### L 100.0100, L500.4050 #### [facility] [address] [place], [address] RBC (Bld) [#/Vol] 5.03 10*6/uL Normal 4.6-6.2 [facility] Comment on above: Performed By: #### L 100.0100, L500.4050 #### [facility] [address] [place], [address] RDW SD 45.0 fl High 35.1-43.9 [facility] Comment on above: Performed By: #### L 100.0100, L500.4050 #### [facility] [address] [place], [address] WBC (Bld) [#/Vol] 8.7 10*3/uL Normal 4.4-11.0 [facility] Comment on above: Performed By: #### L 100.0100, L500.4050 #### [facility] [address] [place], [address] Carbon dioxide measurementOr dered By: Catherine Preciado on 10-05-2024 CO2 [Moles/Vol] 26.0 mmol/L 21.0-32.0 [facility] Chloride measurementOrdered By: Catherine Preciado on 10-05-2024 Chloride [Moles/Vol] 107 mmol/L 98-107 [facility] Comprehensive Metabolic Prof ilon 10-05-2024 Albumin [Mass/Vol] 3.9 g/dL Normal 3.2-5.0 [facility] Comment on above: Performed By: #### L 100.0100, L500.4050 ####[facility] [address] [place], [address] Albumin/Globulin [Mass ratio] 1.0 {ratio} Normal 0.9-2.4 [facility] Comment on above: Performed By: #### L 100.0100, L500.4050 ####[facility] [address] [place], [address] ALK P 93 U/L Normal 45-117 [facility] Comment on above: Performed By: #### L 100.0100, L500.4050 ####[facility] [address] [place], [address] ALT [Catalytic activity/Vol] 31 U/L Normal 16-61 [facility] Comment on above: Performed By: #### L 100.0100, L500.4050 ####[facility] [address] [place], [address] AST [Catalytic activity/Vol] 24 U/L Normal 15-37 [facility] Comment on above: Performed By: #### L 100.0100, L500.4050 ####[facility] [address] [place], [address] Bilirubin [Mass/Vol] 0.40 mg/dL Normal 0.20-1.00 [facility] Comment on above: Result Comment: For patients on eltrombopag therapy, use of Dimension Watson TBIL is not recommended. Performed By: #### L 100.0100, L500.4050 ####[facility] [address] [place], [address] BUN/CRE 16.0 RATIO Normal 10-20 [facility] Comment on above: Performed By: #### L 100.0100, L500.4050 ####[facility] [address] [place], [address] CA,Total 9.3 mg/dL Normal 8.5-10.1 [facility] Comment on above: Performed By: #### L 100.0100, L500.4050 ####[facility] [address] [place], [address] Chloride [Moles/Vol] 107 mmol/L Normal 98-107 [facility] Comment on above: Performed By: #### L 100.0100, L500.4050 ####[facility] [address] [place], [address] CO2 [Moles/Vol] 26.0 mmol/L Normal 21.0-32.0 [facility] Comment on above: Performed By: #### L 100.0100, L500.4050 ####[facility] [address] [place], [address] Creatinine [Mass/Vol] 1.00 mg/dL Normal 0.70-1.30 [facility] Comment on above: Result Comment: The validity of the calculated GFR GFRAA in patients over 70 years has not been determined. Clinical correlation is essential. Performed By: #### L 100.0100, L500.4050 ####[facility] [address] [place], [address] EST GFR - AA 99 mL/min Normal >60 [facility] Comment on above: Result Comment: Afri can [place] GFR Calc Performed By: #### L 100.0100, L500.4050 ####[facility] [address] [place], [address] GAP 6 Normal 5-15 [facility] Comment on above: Performed By: #### L 100.0100, L500.4050 ####[facility] [address] [place], [address] GFR/1.73 sq M.predicted among non-blacks MDRD (S/P/Bld) [Vol rate/Area] 82 mL/min/{1.73_m2} Normal >60 [facility] Comment on above: Result Comment: Non- GFR Calc Performed By: #### L 100.0100, L500.4050 ####[facility] [address] [place], [address] Globulin (S) [Mass/Vol] 3.9 g/dL Normal 2.2-4.2 [facility] Comment on above: Performed By: #### L 100.0100, L500.4050 ####[facility] [address] [place], [address] Glucose [Mass/Vol] 95 mg/dL Normal 74-106 [facility] Comment on above: Performed By: #### L 100.0100, L500.4050 ####[facility] [address] [place], [address] Potassium [Moles/Vol] 3.6 mmol/L Normal 3.5-5.1 [facility] Comment on above: Performed By: #### L 100.0100, L500.4050 ####[facility] [address] [place], [address] Sodium [Moles/Vol] 139 mmol/L Normal 136-145 [facility] Comment on above: Performed By: #### L 100.0100, L500.4050 ####[facility] [address] [place], [address] T PROT 7.8 g/dL Normal 6.4-8.2 [facility] Comment on above: Performed By: #### L 100.0100, L500.4050 ####[facility] [address] [place], [address] Urea nitrogen [Mass/Vol] 16 mg/dL Normal 7-18 [facility] Comment on above: Performed By: #### L 100.0100, L500.4050 ####[facility] [address] [place], [address] Eosinophil percentageOrdered By: Catherine Preciado on 10-05-2024 Eosinophils/100 WBC (Bld) 2.8 % 0-5 [facility] Erythrocyte distribution wid th (RBC) [Ratio]Ordered By: Catherine Preciado on 10-05-2024 Erythrocyte distribution width (RBC) [Entitic vol] 45.0 fL High 35.1-43.9 [facility] Erythrocyte distribution wid th ratioOrdered By: Catherine Preciado on 10-05-2024 Erythrocyte distribution width (RBC) [Ratio] 13.2 % 11.6-14.6 [facility] Estimated glomerular filtrat ion rate (GFR) AmericanOrdered By: Catherine Preciado on 10-05-2024 Estimated GFR (MDRD) Amer 99 mL/min >60 [facility] Comment on above: GFR Calc Glomerular filtration rate ( GFR) estimationOrdered By: Catherine Preciado on 10-05-2024 Estimated GFR (MDRD) Non-Af Amer 82 mL/min >60 [facility] Comment on above: Non- GFR Calc Glucose measurementOrdered B y: Catherine Preciado on 10-05-2024 Glucose [Mass/Vol] 95 mg/dL 74-106 [facility] Hematocrit Auto (Bld) [Volum e fraction]Ordered By: Catherine Preciado on 10-05-2024 Hematocrit (Bld) [Volume fraction] 46.7 % 40-54 [facility] Hemoglobin measurementOrdere d By: Catherine Preciado on 10-05-2024 Hemoglobin (Bld) [Mass/Vol] 16.2 g/dL 13.0-16.5 [facility] Immature granulocytes/100 WB C Auto (Bld)Ordered By: Catherine Preciado on 10-05-2024 Immature granulocytes/100 WBC (Bld) 0.300 % 0.0-0.9 [facility] Comment on above: IG% - Immature Granu locytes (promyelocytes, myelocytes and metamyelocytes) > 1% indicates that a LEFT SHIFT is Present. Laboratory - Chemistry and C hemistry - challengeOrdered By: Catherine Preciado on 10-05-2024 AST [Catalytic activity/Vol] 24 U/L 15-37 [facility] Lymphocytes Auto (Unsp spec) [#/Vol]Ordered By: Catherine Preciado on 10-05-2024 Lymphocytes (Bld) [#/Vol] 2.23 10*3/uL 0.83-4.51 [facility] Lymphocytes/100 WBC Auto (Un sp spec)Ordered By: Catherine Preciado on 10-05-2024 Lymphocytes/100 WBC (Bld) 25.8 % 19-41 [facility] MCV (mean corpuscular volume ) determinationOrdered By: Catherine Preciado on 10-05-2024 MCV (RBC) [Entitic vol] 92.8 fL 80-94 [facility] Mean corpuscular hemoglobin (MCH) determinationOrdered By: Catherine Preciado on 10-05-2024 MCH (RBC) [Entitic mass] 32.2 pg High 27.0-32.0 [facility] Mean corpuscular hemoglobin concentration (MCHC) determinationOrdered By: Catherine Preciado on 10-05-2024 MCHC (RBC) [Mass/Vol] 34.7 g/dL 32-36 [facility] Mean platelet volume determi nationOrdered By: Catherine Preciado on 10-05-2024 Platelet mean volume (Bld) [Entitic vol] 9.6 fL 6.2-12.0 [facility] Monocyte percentageOrdered B y: Catherine Preciado on 10-05-2024 Monocytes/100 WBC (Bld) 11.4 % High 0-10 [facility] Neutrophil percentageOrdered By: Catherine Preciado on 10-05-2024 Neutrophils/100 WBC (Bld) 58.8 % 47-70 [facility] Nucleated red blood cell per centageOrdered By: Catherine Preciado on 10-05-2024 Nucleated RBC/100 WBC (Bld) [Ratio] 0 % 0-5 [facility] Platelet countOrdered By: Beck Preciado on 10-05-2024 Platelets (Bld) [#/Vol] 263 10*3/uL 150-450 [facility] Potassium measurementOrdered By: Catherine Preciado on 10-05-2024 Potassium [Moles/Vol] 3.6 mmol/L 3.5-5.1 [facility] RBC Auto (Bld) [#/Vol]Ordere d By: Catherine Preciado on 10-05-2024 RBC (Bld) [#/Vol] 5.03 10*6/uL 4.6-6.2 [facility] Serum anion gap measurementO rdered By: Catherine Preciado on 10-05-2024 Anion gap [Moles/Vol] 6 mmol/L 5-15 [facility] Serum globulin measurementOr dered By: Catherine Preciado on 10-05-2024 Globulin (S) [Mass/Vol] 3.9 g/dL 2.2-4.2 [facility] Serum or plasma alanine rivera otransferase (ALT) measurementOrdered By: Catherine Preciado on 10-05-2024 ALT [Catalytic activity/Vol] 31 U/L 16-61 [facility] Serum or plasma albumin britni urement (mass/volume)Ordered By: Catherine Preciado on 10-05-2024 Albumin [Mass/Vol] 3.9 g/dL 3.2-5.0 [facility] Serum or plasma alkaline addie sphatase measurementOrdered By: Catherine Preciado on 10-05-2024 ALP [Catalytic activity/Vol] 93 U/L 45-117 [facility] Serum or plasma calcium britni urement (mass/volume)Ordered By: Catherine Preciado on 10-05-2024 Calcium [Mass/Vol] 9.3 mg/dL 8.5-10.1 [facility] Serum or plasma creatinine m easurement (mass/volume)Ordered By: Catherine Preciado on 10-05-2024 Creatinine [Mass/Vol] 1.00 mg/dL 0.70-1.30 [facility] Comment on above: The validity of the calculated GFR & GFRAA in patients over 70 years has not been determined. Clinical correlation is essential. Serum or plasma urea nitroge n measurement (mass/volume)Ordered By: Catherine Preciado on 10-05-2024 Urea nitrogen [Mass/Vol] 16 mg/dL 7-18 [facility] Sodium levelOrdered By: Gloria Preciado on 10-05-2024 Sodium [Moles/Vol] 139 mmol/L 136-145 [facility] Total proteinOrdered By: Warren Preciado on 10-05-2024 Protein [Mass/Vol] 7.8 g/dL 6.4-8.2 [facility] White blood cell (WBC) count Ordered By: Catherine Preciado on 10-05-2024 WBC (Bld) [#/Vol] 8.7 10*3/uL 4.4-11.0 [facility] 36on 10-03-2024 36 Pt is rescheduled fo 05/01 [facility] 36 Brought to my attent ion custom splint appt is scheduled for 11/07 while the surgery is scheduled Apr. I cancelled the appt for Oct but patient needs a custom splint appt for April. [facility] 36on 07-26-2024 36 PAT and Splint Order Signed. [facility] 36 Please enter PAT ord ers, please Sx-05/02 @8a Consent- Left index finger MCP radial collateral ligament reconstruction using palmaris longus autograft Dx-(S53.20XA) Traumatic rupture of radial collateral ligament Anesthesia- MAC , Regional PAT- 04/18 @ 10:30a Surgery Checklist Details Calendar done Clearance no Case # [id number] Authorization Jess Armendariz [phone] [id number] clinicals PAT Day/Time done PAT Orders to Christianity done Splint yes IPO 05/08 @ 11a [facility] SURG[facility] SCHEDULING SLIP Patient: Hollis Mascorro Date of : 1965 Date of Surgery: Next available Day of Surgery: [facility]: [place] Duration: 2hrs Type: Outpatient PAT: Yes - tele Med Clearance: No Anesthesia: MAC Block: Regional Position: Supine Table: Stretcher Arm Board: Roll-up arm table Radiology: Small C-Arm CPT Code: 56069 Consent: Left index finger MCP radial collateral ligament reconstruction using palmaris longus autograft FollowUp: Any P.A. in 5-7 days XRays: No OT Splint needed at first PO appointment: Yes - hand based radial gutter Special Requests Hand tray Arthrex 3mm tenodesis screws Krunal needles Looped 4-0 fiberwire [facility] 36on 07-25-2024 36 No need to see in of fice. Surgery form sent to Steffanie in separate TE [facility] 36on 07-22-2024 36 Name of caller: Lily Mascorro Contact phone number: [phone] Relationship to Patient: patient Provider: Dr. Nolasco Practice: Ortho Chief Complaint/Reason for Call: Patient was requesting a call back, as he saw Dr. Nolasco on 05/09, he is wanting to go ahead with surgery. Please advise Best time of day caller can be reached: any Patient advised that office/PCP has 24-48 business hours to return their call: Yes Normal [facility] CBC W/Diff, Automatedon 10-2 -2023 Absolute Lymph 1.73 X10 3/uL Normal 0.83-4.51 [facility] Comment on above: Performed By: #### L 500.4050, L100.0100 #### [facility] [address] [place], [address] Absolute Neut 5.2 X10 3/uL Normal 2.0-7.7 [facility] Comment on above: Performed By: #### L 500.4050, L100.0100 #### [facility] [address] [place], [address] Basophils/100 WBC (Bld) 0.9 % Normal 0-1 [facility] Comment on above: Performed By: #### L 500.4050, L100.0100 #### [facility] [address] [place], [address] Eosinophils/100 WBC (Bld) 3.7 % Normal 0-5 [facility] Comment on above: Performed By: #### L 500.4050, L100.0100 #### [facility] [address] [place], [address] Erythrocyte distribution width (RBC) [Ratio] 13.5 % Normal 11.6-14.6 [facility] Comment on above: Performed By: #### L 500.4050, L100.0100 #### [facility] [address] [place], [address] Hematocrit (Bld) [Volume fraction] 44.2 % Normal 40-54 [facility] Comment on above: Performed By: #### L 500.4050, L100.0100 #### [facility] [address] [place], [address] Hemoglobin (Bld) [Mass/Vol] 15.1 g/dL Normal 13.0-16.5 [facility] Comment on above: Performed By: #### L 500.4050, L100.0100 #### [facility] [address] [place], [address] IG% 0.600 Normal 0.0-0.9 [facility] Comment on above: Result Comment: IG% - Immature Granulocytes (promyelocytes, myelocytes and metamyelocytes) > 1% indicates that a LEFT SHIFT is Present. Performed By: #### L 500.4050, L100.0100 #### [facility] [address] [place], [address] Lymphocytes/100 WBC (Bld) 20.1 % Normal 19-41 [facility] Comment on above: Performed By: #### L 500.4050, L100.0100 #### [facility] [address] [place], [address] MCH (RBC) [Entitic mass] 32.3 pg High 27.0-32.0 [facility] Comment on above: Performed By: #### L 500.4050, L100.0100 #### [facility] [address] [place], [address] MCHC (RBC) [Mass/Vol] 34.2 g/dL Normal 32-36 [facility] Comment on above: Performed By: #### L 500.4050, L100.0100 #### [facility] [address] [place], [address] MCV (RBC) [Entitic vol] 94.6 fL High 80-94 [facility] Comment on above: Performed By: #### L 500.4050, L100.0100 #### [facility] [address] [place], [address] Monocytes/100 WBC (Bld) 14.6 % High 0-10 [facility] Comment on above: Performed By: #### L 500.4050, L100.0100 #### [facility] [address] [place], [address] Neutrophils/100 WBC (Bld) 60.1 % Normal 47-70 [facility] Comment on above: Performed By: #### L 500.4050, L100.0100 #### [facility] [address] [place], [address] Nucleated RBC (Bld) [#/Vol] 0 10*3/uL Normal 0-5 [facility] Comment on above: Performed By: #### L 500.4050, L100.0100 #### [facility] [address] [place], [address] Platelet mean volume (Bld) [Entitic vol] 10.0 fL Normal 6.2-12.0 [facility] Comment on above: Performed By: #### L 500.4050, L100.0100 #### [facility] [address] [place], [address] Platelets (Bld) [#/Vol] 263 10*3/uL Normal 150-450 [facility] Comment on above: Performed By: #### L 500.4050, L100.0100 #### [facility] [address] [place], [address] RBC (Bld) [#/Vol] 4.67 10*6/uL Normal 4.6-6.2 [facility] Comment on above: Performed By: #### L 500.4050, L100.0100 #### [facility] [address] [place], [address] RDW SD 46.6 fl High 35.1-43.9 [facility] Comment on above: Performed By: #### L 500.4050, L100.0100 #### [facility] [address] [place], [address] WBC (Bld) [#/Vol] 8.6 10*3/uL Normal 4.4-11.0 [facility] Comment on above: Performed By: #### L 500.4050, L100.0100 #### [facility] [address] [place], [address] Comprehensive Metabolic Prof ndon 07-15-2024 Albumin [Mass/Vol] 3.7 g/dL Normal 3.2-5.0 [facility] Comment on above: Performed By: #### L 500.4050, L100.0100 #### [facility] [address] [place], [address] Albumin/Globulin [Mass ratio] 1.0 {ratio} Normal 0.9-2.4 [facility] Comment on above: Performed By: #### L 500.4050, L100.0100 #### [facility] [address] [place], [address] ALK P 99 U/L Normal 45-117 [facility] Comment on above: Performed By: #### L 500.4050, L100.0100 #### [facility] [address] [place], [address] ALT [Catalytic activity/Vol] 39 U/L Normal 16-61 [facility] Comment on above: Performed By: #### L 500.4050, L100.0100 #### [facility] [address] [place], [address] AST [Catalytic activity/Vol] 23 U/L Normal 15-37 [facility] Comment on above: Performed By: #### L 500.4050, L100.0100 #### [facility] [address] [place], [address] Bilirubin [Mass/Vol] 0.20 mg/dL Normal 0.20-1.00 [facility] Comment on above: Result Comment: For patients on eltrombopag therapy, use of Dimension Watson TBIL is not recommended. Performed By: #### L 500.4050, L100.0100 #### [facility] [address] [place], [address] BUN/CRE 19.3 RATIO Normal 10-20 [facility] Comment on above: Performed By: #### L 500.4050, L100.0100 #### [facility] [address] [place], [address] CA,Total 9.1 mg/dL Normal 8.5-10.1 [facility] Comment on above: Performed By: #### L 500.4050, L100.0100 #### [facility] [address] [place], [address] Chloride [Moles/Vol] 110 mmol/L High 98-107 [facility] Comment on above: Performed By: #### L 500.4050, L100.0100 #### [facility] [address] [place], [address] CO2 [Moles/Vol] 24.0 mmol/L Normal 21.0-32.0 [facility] Comment on above: Performed By: #### L 500.4050, L100.0100 #### [facility] [address] [place], [address] Creatinine [Mass/Vol] 0.88 mg/dL Normal 0.70-1.30 [facility] Comment on above: Result Comment: The validity of the calculated GFR GFRAA in patients over 70 years has not been determined. Clinical correlation is essential. Performed By: #### L 500.4050, L100.0100 #### [facility] [address] [place], [address] EST GFR - AA 115 mL/min Normal >60 [facility] Comment on above: Result Comment: Afri can Nicaraguan GFR Calc Performed By: #### L 500.4050, L100.0100 #### [facility] [address] [place], [address] GAP 7 Normal 5-15 [facility] Comment on above: Performed By: #### L 500.4050, L100.0100 #### [facility] [address] [place], [address] GFR/1.73 sq M.predicted among non-blacks MDRD (S/P/Bld) [Vol rate/Area] 95 mL/min/{1.73_m2} Normal >60 [facility] Comment on above: Result Comment: Non- GFR Calc Performed By: #### L 500.4050, L100.0100 #### [facility] [address] [place], [address] Globulin (S) [Mass/Vol] 3.6 g/dL Normal 2.2-4.2 [facility] Comment on above: Performed By: #### L 500.4050, L100.0100 #### [facility] [address] [place], [address] Glucose [Mass/Vol] 88 mg/dL Normal 74-106 [facility] Comment on above: Performed By: #### L 500.4050, L100.0100 #### [facility] [address] [place], [address] Potassium [Moles/Vol] 3.7 mmol/L Normal 3.5-5.1 [facility] Comment on above: Performed By: #### L 500.4050, L100.0100 #### [facility] [address] [place], [address] Sodium [Moles/Vol] 140 mmol/L Normal 136-145 [facility] Comment on above: Performed By: #### L 500.4050, L100.0100 #### [facility] [address] [place], [address] T PROT 7.3 g/dL Normal 6.4-8.2 [facility] Comment on above: Performed By: #### L 500.4050, L100.0100 #### [facility] [address] [place], [address] Urea nitrogen [Mass/Vol] 17 mg/dL Normal 7-18 [facility] Comment on above: Performed By: #### L 500.4050, L100.0100 #### [facility] [address] [place], [address] [facility] 06-27-2024 [facility] Telephone (INTMWS) ----- HOLLIS MASCORRO ([id number]) 1965 M Date Time Provider Department 06/27/24 KADEN DIAMOND INTWS During your visit today, we recorded the following information about you: Judith Eason RN 06/27/2024 4:38 PM Signed Patient calling Dr. Diamond for advise. 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 Last treatment ended 06/17/24. Reports symptoms are returning. Reports loose stools, gas and bloating. Denies fever, abdominal pain nausea or vomiting. Eating healthy diet and taking probiotic. Uses [facility]. Please advise patient. Thank you. Kaden Diamond MD 06/29/2024 9:03 AM Signed Update on patient's condition/symptoms please. Rajiv Alvarez RN 06/29/2024 12:58 PM Signed Phoned patient and asked for update. Patient reports he is eating 4 norwegian yogarts a day now, instead of taking [...] Increase fiber. Return for liquid diarrhea. Rajiv Alvarez RN 06/29/2024 4:42 PM Signed Left vm [...] for Visit: Patient Update [1234] Patient Question [4487] Prescriptions as of 06/30/2024 - rOPINIRole (REQUIP) [...] [A04.72] 05/20/2024 06/24/2024 Encounter Status:Closed by Rajiv ALVAREZ on 06/30/24 [facility] CNOVon 06-24-2024 CNOV Office Visit (INTMWS ) ----- HOLLIS MASCORRO ([id number]) 1965 M Date Time Provider Department 06/24/24 11:00 AM KADEN DIAMOND INTMWS During your visit today, we recorded the following information about you: Temperature Pulse Respiration Blood pressure 98.1 degrees 70/minute 12/minute 130/72 Weight Height 87.9 kg 1.753 m Kaden Diamond MD 06/24/2024 1:13 PM Signed This note was created using [employer]. Subjective Patient presents with: Yearly Exam Immunizations: Flu vaccination Hollis Mascorro is a 58 year old male. [...] psoriatic arthritis and psoriasis. Dr. Levi Reyes, [facility]. Dr. Karl Nolasco, [facility] (hands) [facility], allergy. Review of Systems PAST MEDICAL HISTORY Diagnosis Date Chronic rhinitis 03/03/2006 Clostridium difficile colitis 05/20/2024 DJD (degenerative joint disease) of hip 05/12/2013 Dr. Moeller Mild intermittent asthma with acute exacerbation 10/21/2007 Osteoarthritis of hip 05/12/2013 Psoriasis 05/12/2013 Dr. Calloway Psoriatic arthritis (HCC) 09/21/2017 Dr. 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 Traumatic rupture of collateral ligament of left index finger 12/09/2023 [facility] PAST SURGICAL HISTORY Procedure Laterality Date ANKLE LEFT OP SURGERY Left 07/2015 COLONOSCOPY FLX DX W/COLLJ SPEC WHEN PFRMD 04/23/2020 Colonoscopy TOTAL HIP REPLACEMENT Left 11/28/2021 FAMILY HISTORY Problem Relation Age of Onset Cancer Mother 67 lung cancer Hypertension Mother Arthritis Mother psoriatic GI Father diverticulitis Heart Father SC @ 81 years COPD Father driscoll's lung [...] Z23 - INFLUENZA VACCINE, AGE 6MO-64YR, TRIVALENT (AFLURI (more content not included)... Normal [facility]20[facility] ----- HOLLIS MASCORRO ([id number]) 1965 M Date Time Provider Department 06/07/24 KADEN DIAMOND INTMWS During your visit today, we recorded the following information about you: Jess Lyman RN 06/07/2024 3:11 PM Signed Patient calls and states that he had c-diff a couple of weeks ago and was put on antibiotic for this. Patient states that his last dose of Vancomycin was on the weekend on 05/28. Patient reports that he is starting to not feel well again. Patient noticed that the mucous was back in stool yesterday. Patient has been having a lot of gas and he is starting to feel not well again. Please review and advise, LIZ Hidalog Terri, CHRISTOPHER.PAPER COUNTER 06/07/2024 3:20 PM Signed Appears this is the first recurrence. Repeat vancomycin x 10 days. Rx sent. He should let us know how he is doing following the treatment or if not improving while taking the treatment. Dena Jameson LPN 06/07/2024 3:29 PM Signed Patient notified, verbalized understanding. Dena Jameson LPN Allergies As of Date: 06/07/2024 Noted Allergy Reaction AMPICILLIN 03/03/2006 bandaid [Other] 04/04/2009 2 - Rash bee stings [Other] 03/03/2006 12 - Shortness of Breath Seasonal Allergies [Other] 11/21/2006 Date Reviewed: 05/16/2024 Reviewed by: Dena Jameson LPN - Fully Assessed Reason for Visit: Patient Update [1234] Visit Diagnosis:Clostridium difficile colitis [A04.72] Order(s):vancomycin (VANCOCIN) 125 mg capsuleTake 1 capsule by mouth four times daily for 10 days.Disp: 40 capsuleRfl: 0 Prescriptions as of 06/07/2024 - vancomycin (VANCOCIN) 125 mg capsule Take 1 capsule by mouth four times daily for 10 days. - dicyclomine (BENTYL) 20 mg tablet Take 20 mg by mouth three times a day as needed. - budesonide (PULMICORT) 0.5 mg/2 mL nebulizer solution Use 0.5 mg via nebulizer once daily. - rOPINIRole (REQUIP) 0.25 mg tablet Take [...] once daily. Problem List As Of Date 06/07/2024 Noted Resolved Chronic rhinitis [J31.0] 03/03/2006 TOXIC EFFECT VENOM [T63.91XA] 11/21/2006 Mild intermittent asthma with acute exacerbatio*10/21/2007 Osteoarthritis of hip [M16.9] 05/12/2013 Psoriasis [L40.9] 05/12/2013 Psoriatic arthritis (HCC) [L40.50] 09/21/2017 Clostridium difficile colitis [A04.72] 05/20/2024 Prescriptions ordered this encounter Disp Refills Start End VANCOMYCIN 125 MG CAPSULE 40 c* 0 06/07/2024 06/17/2024 Route: ORAL Sig: Take 1 capsule by mouth four times daily for 10 days. Medications Discontinued During This Encounter Prescriptions - vancomycin (VANCOCIN) 125 mg capsule (Discontinued) Take 1 capsule by mouth four times daily for 10 days. Encounter Status:Closed by DENA JAMESON on 06/07/[address] [facility] [address] ABD/PEL W IVCONon 024 CT ABD/PEL W IVCON * * *Final Report* * * DATE OF EXAM: May 27 2024 11:24AM [facility] 0530 - CT ABD/PEL W IVCON / PROCEDURE REASON: multiple diagnoses * * * * Physician Interpretation * * * * EXAMINATION: CT ABDOMEN AND PELVIS WITH IV CONTRAST CLINICAL HISTORY: Abdominal pain and diarrhea. TECHNIQUE: CT of the abdomen and pelvis was performed using standard technique, scanning from just above the dome of the diaphragm to the symphysis pubis. MQ: CTAP_3 Contrast: IV: 100 ml of Omnipaque 350 Oral: 10 ml of Omni 300 10-25ml diluted with water CT Radiation dose: Integrated Dose-length product (DLP) for this visit = 674 mGy*cm. CT Dose Reduction Employed: Automated exposure control(AEC) and iterative recon RESULT: Liver: The liver is of low-density, when compared to the spleen, suggesting fatty infiltration of the liver. There is no obvious focal discrete hepatic mass. Biliary: The gallbladder is relatively collapsed. There is no biliary dilation. Spleen: No mass. No splenomegaly. Pancreas: There is no obvious focal discrete pancreatic mass or pancreatic ductal dilation. Adrenals: No mass. Kidneys: There is no hydronephrosis or perinephric fluid collection. GI tract: There are no dilated loops of bowel to suggest obstruction. Moderate stool burden. The appendix is seen right lower quadrant and is within normal limits. There is sigmoid colon diverticulosis. There is mild fat stranding seen involving the sigmoid colon and mild colitis cannot be excluded. No evidence for bowel perforation, abscess, or bowel obstruction. Lymph nodes: There are prominent, less than 1 cm abdominal lymph nodes, likely reactive. Mesentery/Peritoneum: There is fat stranding, with prominent lymph nodes within the root of mesentery, a nonspecific finding, but one which can be seen with mesenteric panniculitis. No abdominal ascites. Retroperitoneum: No mass. Vasculature: There is no abdominal aortic aneurysm. Pelvis: Evaluation of pelvis is limited signal to streak artifact from left hip arthroplasty. Prominent, less than 1 cm pelvic lymph nodes are likely reactive. Phleboliths within the right pelvis. Within the limits of this examination, there is no obvious pelvic mass or pelvic ascites. Calcifications within the prostate gland. Prominence of the seminal vesicles, bilaterally. Bones/Soft Tissues: Status post left hip arthroplasty. Right hip osteoarthritis, with associated osteophyte formation. There is no destructive bony lesion. Degenerative changes are seen within the visualized lower thoracic spine. Diastases of the rectus abdominis musculature. Lower thorax: There is dependent atelectasis. Linear atelectasis is seen within the lingula and right middle lobe. IMPRESSION: Normal appendix. Sigmoid colon diverticulosis. Mild fat stranding is seen involving the sigmoid colon and mild colitis is not excluded. No evidence for bowel perforation, abscess, or bowel obstruction. Moderate stool burden. Fatty infiltration of the liver. Training Development Manager: JAZMÍN Transcribe Date/Time: May 27 2024 12:45P Dictated by : DEDRICK YEAGER MD This examination was interpreted and the report reviewed and electronically signed by: DEDRICK YEAGER MD on May 27 2024 12:52PM EST [id number] Normal [facility] CT Abdomen and Pelvis W cont rast Denisha 05-27-2024 IMPRESSION: Normal appendix. Sigmoid colon diverticulosis. Mild fat stranding is seen involving the sigmoid colon and mild colitis is not excluded. No evidence for bowel perforation, abscess, or bowel obstruction. Moderate stool burden. Fatty infiltration of the liver. Training Development Manager: JAZMÍN Transcribe Date/Time: May 27 2024 12:45P Dictated by : DEDRICK YEAGER MD This examination was interpreted and the report reviewed and electronically signed by: DEDRICK YEAGER MD on May 27 2024 12:52PM EST DIVISION OF RADIOLOGY * * *Final Report* * * DATE OF EXAM: May 27 2024 11:24AM [facility] 0530 - CT ABD/PEL W IVCON / PROCEDURE REASON: multiple diagnoses * * * * Physician Interpretation * * * * EXAMINATION: CT ABDOMEN AND PELVIS WITH IV CONTRAST CLINICAL HISTORY: Abdominal pain and diarrhea. TECHNIQUE: CT of the abdomen and pelvis was performed using standard technique, scanning from just above the dome of the diaphragm to the symphysis pubis. MQ: CTAP_3 Contrast: IV: 100 ml of Omnipaque 350 Oral: 10 ml of Omni 300 10-25ml diluted with water CT Radiation dose: Integrated Dose-length product (DLP) for this visit = 674 mGy*cm. CT Dose Reduction Employed: Automated exposure control(AEC) and iterative recon RESULT: Liver: The liver is of low-density, when compared to the spleen, suggesting fatty infiltration of the liver. There is no obvious focal discrete hepatic mass. Biliary: The gallbladder is relatively collapsed. There is no biliary dilation. Spleen: No mass. No splenomegaly. Pancreas: There is no obvious focal discrete pancreatic mass or pancreatic ductal dilation. Adrenals: No mass. Kidneys: There is no hydronephrosis or perinephric fluid collection. GI tract: There are no dilated loops of bowel to suggest obstruction. Moderate stool burden. The appendix is seen right lower quadrant and is within normal limits. There is sigmoid colon diverticulosis. There is mild fat stranding seen involving the sigmoid colon and mild colitis cannot be excluded. No evidence for bowel perforation, abscess, or bowel obstruction. Lymph nodes: There are prominent, less than 1 cm abdominal lymph nodes, likely reactive. Mesentery/Peritoneum: There is fat stranding, with prominent lymph nodes within the root of mesentery, a nonspecific finding, but one which can be seen with mesenteric panniculitis. No abdominal ascites. Retroperitoneum: No mass. Vasculature: There is no abdominal aortic aneurysm. Pelvis: Evaluation of pelvis is limited signal to streak artifact from left hip arthroplasty. Prominent, less than 1 cm pelvic lymph nodes are likely reactive. Phleboliths within the right pelvis. Within the limits of this examination, there is no obvious pelvic mass or pelvic ascites. Calcifications within the prostate gland. Prominence of the seminal vesicles, bilaterally. Bones/Soft Tissues: Status post left hip arthroplasty. Right hip osteoarthritis, with associated osteophyte formation. There is no destructive bony lesion. Degenerative changes are seen within the visualized lower thoracic spine. Diastases of the rectus abdominis musculature. Lower thorax: There is dependent atelectasis. Linear atelectasis is seen within the lingula and right middle lobe. DIVISION OF RADIOLOGY Provider, Fabby Flaherty [facility] - 05/27/2024 * * *Final Report* * * DATE OF EXAM: May 27 2024 11:24AM [facility] 0530 - CT ABD/PEL W IVCON / PROCEDURE REASON: multiple diagnoses * * * * Physician Interpretation * * * * EXAMINATION: CT ABDOMEN AND PELVIS WITH IV CONTRAST CLINICAL HISTORY: Abdominal pain and diarrhea. TECHNIQUE: CT of the abdomen and pelvis was performed using standard technique, scanning from just above the dome of the diaphragm to the symphysis pubis. MQ: CTAP_3 Contrast: IV: 100 ml of Omnipaque 350 Oral: 10 ml of Omni 300 10-25ml diluted with water CT Radiation dose: Integrated Dose-length product (DLP) for this visit = 674 mGy*cm. CT Dose Reduction Employed: Automated exposure control(AEC) and iterative recon RESULT: Liver: The liver is of low-density, when compared to the spleen, suggesting fatty infiltration of the liver. There is no obvious focal discrete hepatic mass. Biliary: The gallbladder is relatively collapsed. There is no biliary dilation. Spleen: No mass. No splenomegaly. Pancreas: There is no obvious focal discrete pancreatic mass or pancreatic ductal dilation. Adrenals: No mass. Kidneys: There is no hydronephrosis or perinephric fluid collection. GI tract: There are no dilated loops of bowel to suggest obstruction. Moderate stool burden. The appendix is seen right lower quadrant and is within normal limits. There is sigmoid colon diverticulosis. There is mild fat stranding seen involving the sigmoid colon and mild colitis cannot be excluded. No evidence for bowel perforation, abscess, or bowel obstruction. Lymph nodes: There are prominent, less than 1 cm abdominal lymph nodes, likely reactive. Mesentery/Peritoneum: There is fat stranding, with prominent lymph nodes within the root of mesentery, a nonspecific finding, but one which can be seen with mesenteric panniculitis. No abdominal ascites. Retroperitoneum: No mass. Vasculature: There is no abdominal aortic aneurysm. Pelvis: Evaluation of pelvis is limited signal to streak artifact from left hip arthroplasty. Prominent, less than 1 cm pelvic lymph nodes are likely reactive. Phleboliths within the right pelvis. Within the limits of this examination, there is no obvious pelvic mass or pelvic ascites. Calcifications within the prostate gland. Prominence of the seminal vesicles, bilaterally. Bones/Soft Tissues: Status post left hip arthroplasty. Right hip osteoarthritis, with associated osteophyte formation. There is no destructive bony lesion. Degenerative changes are seen within the visualized lower thoracic spine. Diastases of the rectus abdominis musculature. Lower thorax: There is dependent atelectasis. Linear atelectasis is seen within the lingula and right middle lobe. IMPRESSION IMPRESSION: Normal appendix. Sigmoid colon diverticulosis. Mild fat stranding is seen involving the sigmoid colon and mild colitis is not excluded. No evidence for bowel perforation, abscess, or bowel obstruction. Moderate stool burden. Fatty infiltration of the liver. Training Development Manager: PSCB Transcribe Date/Time: May 27 2024 12:45P Dictated by : DEDRICK YEAGER MD This examination was interpreted and the report reviewed and electronically signed by: DEDRICK YEAGER MD on May 27 2024 12:52PM EST [facility] Radiology Study observation (narrative) [facility] CT Abdomen and Pelvis W cont rast IVOrdered By: [facility] Provider on 05-27-2024 [facility]-2024 [facility] ----- HOLLIS MASCORRO ([id number]) 1965 M Date Time Provider Department 05/21/24 KADEN DIAMOND During your visit today, we recorded the following information about you: Judith Eason, LIZ 05/21/2024 9:04 AM Signed Attempted to contact patient. No answer. Voicemail message left to call PCP office to ensure he is aware message. Kaden Diamond MD 05/20/2024 1:07 PM EDT Result(s) viewed by patient: Yes. Antibiotic associated inflammation of colon. Advise ER for worsening symptoms especially abdominal pain, fever. Contact precautions and frequent hand washing. Hydrate well. Do not take anti diarrhea medication. Start Vancomycin 125 mg 4x per day x 10 days. Emelina Black LPN 05/21/2024 10:31 AM Signed Spoke with pt and information listed below given. Pt verbalizes understanding. Pt reports already starting to feel better. Emelina Black LPN Allergies As of Date: 05/21/2024 Noted Allergy Reaction AMPICILLIN 03/03/2006 bandaid [Other] 04/04/2009 2 - Rash bee stings [Other] 03/03/2006 12 - Shortness of Breath Seasonal Allergies [Other] 11/21/2006 Date Reviewed: 05/16/2024 Reviewed by: Dena Jameson LPN - Fully Assessed Reason for Visit: Results [95] Prescriptions as of 05/21/2024 - vancomycin (VANCOCIN) 125 mg capsule Take 1 capsule by mouth four times daily for 10 days. - dicyclomine (BENTYL) 20 mg tablet Take 20 mg by mouth three times a day as needed. - budesonide (PULMICORT) 0.5 mg/2 mL nebulizer solution Use 0.5 mg via nebulizer once daily. - rOPINIRole (REQUIP) 0.25 mg tablet Take [...] once daily. 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 difficile toxin genes ERIC+probe Ql (Stl) Positive Abnormal Negative for C. difficile toxin by PCR [facility] Comment on above: Order Comment: aMrcos rolon Type: BLOOD SPECIMEN Ordering Facility: [facility] Address: [address] [place] [address] Result Comment: A po sitive PCR result may indicate C.difficile infection or colonization. The positive predictive value of this test for C.difficile infection is highest for patients with clinically significant diarrhea (>=3 unformed stools in 24h) who do not have an alternative explanation (e.g., recent receipt of laxatives). Toxin EIA testing will also be performed as recommended by IDSA clinical practice guidelines for institutions without pre-agreed criteria for specimen submission. Performed By: #### 4 537-7, 53977-4 #### [facility] CLIA [id number] [address] [place] [address] [place] C. DIFFICILE TOXIN BY EIAon 05-19-2024 C. difficile toxin A+B IA Ql (Stl) Detected Abnormal Negative for C. difficile toxin [facility] Comment on above: Order Comment: Marcos rolon Type: BLOOD SPECIMEN Ordering Facility: [facility] Address: [address] [place] [address] Performed By: #### 4 537-7, 17323-8 #### [facility] CLIA [id number] [address] [place] [address] [place] CBC panel Auto (Bld)on 05-17 Erythrocyte distribution width (RBC) [Ratio] 12.9 % Normal 11.5-15.0 [facility] Comment on above: Order Comment: Marcos rolon Type: BLOOD SPECIMEN Ordering Facility: [facility] Address: [address] [place] [address] Performed By: #### 4 537-7, 26805-9 #### [facility] CLIA [id number] [address] [place] [address] [place] Hematocrit (Bld) [Volume fraction] 44.8 % Normal 39.0-51.0 [facility] Comment on above: Order Comment: Speci men Type: BLOOD SPECIMEN Ordering Facility: [facility] Address: [address] [place] [address] Performed By: #### 4 537-7, 87289-3 #### [facility] CLIA [id number] [address] [place] [address] [place] Hemoglobin (Bld) [Mass/Vol] 15.3 g/dL Normal 13.0-17.0 [facility] Comment on above: Order Comment: Speci men Type: BLOOD SPECIMEN Ordering Facility: [facility] Address: [address] [place] [address] Performed By: #### 4 537-7, 62943-7 #### [facility] CLIA [id number] [address] [place] [address] [place] MCH (RBC) [Entitic mass] 32.1 pg Normal 26.0-34.0 [facility] Comment on above: Order Comment: Speci men Type: BLOOD SPECIMEN Ordering Facility: [facility] Address: [address] [place] [address] Performed By: #### 4 537-7, 79976-4 #### [facility] CLIA [id number] [address] [place] [address] [place] MCHC (RBC) [Mass/Vol] 34.2 g/dL Normal 30.5-36.0 [facility] Comment on above: Order Comment: Speci men Type: BLOOD SPECIMEN Ordering Facility: [facility] Address: [address] [place] [address] Performed By: #### 4 537-7, 79933-4 #### [facility] CLIA [id number] [address] [place] [address] [place] MCV (RBC) [Entitic vol] 94.1 fL Normal 80.0-100.0 C [facility] Comment on above: Order Comment: Speci men Type: BLOOD SPECIMEN Ordering Facility: [facility] Address: [address] [place] [address] Performed By: #### 4 537-7, 86598-2 #### [facility] CLIA [id number] [address] [place] [address] [place] Nucleated RBC (Bld) [#/Vol] 10*3/uL Normal <0.01 [facility] Comment on above: Order Comment: Speci men Type: BLOOD SPECIMEN Ordering Facility: [facility] Address: [address] [place] [address] Performed By: #### 4 537-7, 36374-0 #### [facility] CLIA [id number] [address] [place] [address] [place] Platelet mean volume (Bld) [Entitic vol] 10.1 fL Normal 9.0-12.7 [facility] Comment on above: Order Comment: Speci men Type: BLOOD SPECIMEN Ordering Facility: [facility] Address: [address] [place] [address] Performed By: #### 4 537-7, 72726-3 #### [facility] CLIA [id number] [address] [place] [address] [place] Platelets (Bld) [#/Vol] 268 10*3/uL Normal 150-400 [facility] Comment on above: Order Comment: Speci men Type: BLOOD SPECIMEN Ordering Facility: [facility] Address: [address] [place] [address] Performed By: #### 4 537-7, 40499-4 #### [facility] CLIA [id number] [address] [place] [address] [place] RBC (Bld) [#/Vol] 4.76 10*6/uL Normal 4.20-6.00 [facility] Comment on above: Order Comment: Speci men Type: BLOOD SPECIMEN Ordering Facility: [facility] Address: [address] [place] [address] Performed By: #### 4 537-7, 46893-2 #### [facility] CLIA [id number] [address] [place] [address] [place] WBC (Bld) [#/Vol] 14.68 10*3/uL High 3.70-11.00 [facility] Comment on above: Order Comment: Speci men Type: BLOOD SPECIMEN Ordering Facility: [facility] Address: [address] [place] [address] Performed By: #### 4 537-7, 12399-3 #### [facility] CLIA [id number] [address] [place] [address] [place] CRP SerPl-mCncon 05-17-2024 CRP [Mass/Vol] 2.0 mg/dL High <0.9 [facility] Comment on above: Order Comment: Speci men Type: BLOOD SPECIMEN Ordering Facility: [facility] Address: [address] [place] [address] Performed By: #### 4 537-7, 67107-9 #### [facility] CLIA [id number] [address] [place] [address] [place] Comprehensive metabolic 2000 panelon 05-17-2024 Albumin [Mass/Vol] 4.1 g/dL Normal 3.9-4.9 [facility] Comment on above: Order Comment: Speci men Type: BLOOD SPECIMEN Ordering Facility: [facility] Address: [address] [place] [address] Performed By: #### 4 537-7, 39016-2 #### [facility] CLIA [id number] [address] [place] [address] [place] ALP [Catalytic activity/Vol] 87 U/L Normal 38-113 [facility] Comment on above: Order Comment: Speci men Type: BLOOD SPECIMEN Ordering Facility: [facility] Address: [address] [place] [address] Performed By: #### 4 537-7, 05209-7 #### [facility] CLIA [id number] [address] [place] [address] [place] ALT [Catalytic activity/Vol] 15 U/L Normal 10-54 [facility] Comment on above: Order Comment: Speci men Type: BLOOD SPECIMEN Ordering Facility: [facility] Address: [address] [place] [address] Performed By: #### 4 537-7, 02809-2 #### [facility] CLIA [id number] [address] [place] [address] [place] Anion gap [Moles/Vol] 10 mmol/L Normal 8-15 [facility] Comment on above: Order Comment: Speci men Type: BLOOD SPECIMEN Ordering Facility: [facility] Address: [address] [place] [address] Performed By: #### 4 537-7, 05540-0 #### [facility] CLIA [id number] [address] [place] [address] [place] AST [Catalytic activity/Vol] 16 U/L Normal 14-40 [facility] Comment on above: Order Comment: Speci men Type: BLOOD SPECIMEN Ordering Facility: [facility] Address: [address] [place] [address] Performed By: #### 4 537-7, 72309-4 #### [facility] CLIA [id number] [address] [place] [address] [place] Bilirubin [Mass/Vol] 0.5 mg/dL Normal 0.2-1.3 [facility] Comment on above: Order Comment: Speci men Type: BLOOD SPECIMEN Ordering Facility: [facility] Address: [address] [place] [address] Performed By: #### 4 537-7, 27452-5 #### [facility] CLIA [id number] [address] [place] [address] [place] Calcium [Mass/Vol] 9.4 mg/dL Normal 8.5-10.2 [facility] Comment on above: Order Comment: Speci men Type: BLOOD SPECIMEN Ordering Facility: [facility] Address: [address] [place] [address] Performed By: #### 4 537-7, 14226-3 #### [facility] CLIA [id number] [address] [place] [address] [place] Chloride [Moles/Vol] 104 mmol/L Normal 98-107 [facility] Comment on above: Order Comment: Speci men Type: BLOOD SPECIMEN Ordering Facility: [facility] Address: [address] [place] [address] Performed By: #### 4 537-7, 34474-2 #### [facility] CLIA [id number] [address] [place] [address] [place] CO2 [Moles/Vol] 26 mmol/L Normal 22-30 [facility] Comment on above: Order Comment: Speci men Type: BLOOD SPECIMEN Ordering Facility: [facility] Address: [address] [place] [address] Performed By: #### 4 537-7, 17360-1 #### [facility] CLIA [id number] [address] [place] [address] [place] Creatinine [Mass/Vol] 0.99 mg/dL Normal 0.73-1.22 [facility] Comment on above: Order Comment: Speci men Type: BLOOD SPECIMEN Ordering Facility: [facility] Address: [address] [place] [address] Performed By: #### 4 537-7, 19297-1 #### [facility] CLIA [id number] [address] [place] [address] [place] Creatinine and Glomerular filtration rate.predicted panel (S/P/Bld) 89 mL/min/1.73m??? Normal >=60 [facility] Comment on above: Order Comment: Marcos rolon Type: BLOOD SPECIMEN Ordering Facility: [facility] Address: [address] [place] [address] Result Comment: Mary mated Glomerular Filtration Rate (eGFR) is calculated using the 2020 CKD-EPI creatinine equation. This equation utilizes serum creatinine, sex, and age as parameters. The creatinine assay has traceable calibration to isotope dilution-mass spectrometry. Refer to KDIGO guidelines for clinical interpretation. In patients with unstable renal function, e.g. those with acute kidney injury, the eGFR may not accurately reflect actual GFR. Performed By: #### 4 537-7, 96517-2 #### [facility] CLIA [id number] [address] [place] [address] [place] Glucose [Mass/Vol] 86 mg/dL Normal 74-99 [facility] Comment on above: Order Comment: Marcos rolon Type: BLOOD SPECIMEN Ordering Facility: [facility] Address: [address] [place] [address] Result Comment: The [place] Diabetes Association (ADA) provides guidance for cutoff values for fasting glucose and random glucose. The ADA defines fasting as no caloric intake for at least 8 hours. Fasting plasma glucose results between 100 to 125 mg/dL indicate increased risk for diabetes (prediabetes). Fasting plasma glucose results greater than or equal to 126 mg/dL meet the criteria for diagnosis of diabetes. In the absence of unequivocal hyperglycemia, results should be confirmed by repeat testing. In a patient with classic symptoms of hyperglycemia or hyperglycemic crisis, random plasma glucose results greater than or equal to 200 mg/dL meet the criteria for diagnosis of diabetes. Reference: Standards of Medical Care in Diabetes 2016, [place] [employer]. Diabetes Care. 2016.39(Suppl 1). Performed By: #### 4 537-7, 11332-1 #### [facility] CLIA [id number] [address] [place], [place] [address] [place] Potassium [Moles/Vol] 4.4 mmol/L Normal 3.7-5.1 [facility] Comment on above: Order Comment: Speci men Type: BLOOD SPECIMEN Ordering Facility: [facility] Address: [address] [place] [address] Performed By: #### 4 537-7, 37736-9 #### [facility] CLIA [id number] [address] [place] [address] [place] Protein [Mass/Vol] 7.4 g/dL Normal 6.3-8.0 [facility] Comment on above: Order Comment: Speci men Type: BLOOD SPECIMEN Ordering Facility: [facility] Address: [address] [place] [address] Performed By: #### 4 537-7, 83211-3 #### [facility] CLIA [id number] [address] [place] [address] [place] Sodium [Moles/Vol] 140 mmol/L Normal 136-144 [facility] Comment on above: Order Comment: Speci men Type: BLOOD SPECIMEN Ordering Facility: [facility] Address: [address] [place] [address] Performed By: #### 4 537-7, 28618-9 #### [facility] CLIA [id number] [address] [place] [address] [place] Urea nitrogen [Mass/Vol] 11 mg/dL Normal 9-24 [facility] Comment on above: Order Comment: Speci men Type: BLOOD SPECIMEN Ordering Facility: [facility] Address: [address] [place] [address] Performed By: #### 4 537-7, 85784-3 #### [facility] CLIA [id number] [address] [place] [address] [place] ESR Westergren method (Bld) [Velocity]on 05-17-2024 ESR (Bld) [Velocity] 13 mm/h Normal 0-15 [facility] Comment on above: Order Comment: Speci men Type: BLOOD SPECIMEN Ordering Facility: [facility] Address: [address] [place] [address] Performed By: #### 4 537-7, 87419-4 #### [facility] CLIA [id number] [address] [place] [address] [place] Lipid 1996 panelon 4 Cholesterol [Mass/Vol] 114 mg/dL Normal <200 [facility] Comment on above: Order Comment: Speci men Type: BLOOD SPECIMEN Ordering Facility: [facility] Address: [address] [place] [address] Result Comment: <200 mg/dL, Desirable 200-239 mg/dL, Borderline high >239 mg/dL, High Performed By: #### 4 537-7, 37014-1 #### [facility] CLIA [id number] [address] [place] [address] [place] Cholesterol in HDL [Mass/Vol] 41 mg/dL Normal >39 [facility] Comment on above: Order Comment: Speci men Type: BLOOD SPECIMEN Ordering Facility: [facility] Address: [address] [place] [address] Result Comment: 40-5 9 mg/dL, Acceptable >59 mg/dL, High: Negative risk factor for coronary heart disease <40 mg/dL, Low: Positive risk factor for coronary heart disease Performed By: #### 4 537-7, 62331-5 #### [facility] CLIA [id number] [address] [place] [address] [place] Cholesterol in LDL [Mass/Vol] 56 mg/dL Normal <100 [facility] Comment on above: Order Comment: Speci men Type: BLOOD SPECIMEN Ordering Facility: [facility] Address: [address], [place] [address] Result Comment: <100 mg/dL, Optimal 100-129 mg/dL, Near optimal/above optimal 130-159 mg/dL, Borderline high 160-189 mg/dL, High >189 mg/dL, Very high Secondary prevention optimal LDL Cholesterol levels are recommended to be < 70 mg/dL Performed By: #### 4 537-7, 48091-8 #### [facility] CLIA [id number] [address] [place] [address] [place] Cholesterol in LDL/Cholesterol in HDL [Mass ratio] 1.37 {ratio} Normal <2.54 [facility] Comment on above: Order Comment: Marcos rolon Type: BLOOD SPECIMEN Ordering Facility: [facility] Address: [address] [place] [address] Result Comment: Refe richiece: 1. National Cholesterol Education Program ATP III Guideline At-A-Glance Quick Desk Reference: National Heart, Lung, and Blood Custer. National Institutes of Health. 2001: NIH Publication No. 01-3305. 2. An International Atherosclerosis Society position paper: global recommendations for the management of dyslipidemia: executive summary, Atherosclerosis. 2014: 232(2):410-413. Performed By: #### 4 537-7, 23059-3 #### [facility] CLIA [id number] [address] [place] [address] [place] Cholesterol in VLDL [Mass/Vol] 17 mg/dL Normal <30 [facility] Comment on above: Order Comment: Marcos rolon Type: BLOOD SPECIMEN Ordering Facility: [facility] Address: [address] [place] [address] Performed By: #### 4 537-7, 31905-2 #### [facility] CLIA [id number] [address] [place] [address] [place] Cholesterol non HDL [Mass/Vol] 73 mg/dL Normal <130 [facility] Comment on above: Order Comment: Marcos rolon Type: BLOOD SPECIMEN Ordering Facility: [facility] Address: [address] [place] [address] Result Comment: <130 mg/dL, Optimal 130-159 mg/dL, Near optimal/above optimal 160-189 mg/dL, Borderline high 190-219 mg/dL, High >219 mg/dL, Very high Secondary prevention optimal non HDL Cholesterol levels are recommended to be <100 mg/dL Performed By: #### 4 537-7, 26858-4 #### [facility] CLIA [id number] [address] [place] [address] [place] Cholesterol.total/Choles terol in HDL [Mass ratio] 2.78 {ratio} Normal <5.10 [facility] Comment on above: Order Comment: Speci men Type: BLOOD SPECIMEN Ordering Facility: [facility] Address: [address] [place] [address] Performed By: #### 4 537-7, 56782-5 #### [facility] CLIA [id number] [address] [place] [address] [place] FASTING TIME 12 hrs Normal [facility] Comment on above: Order Comment: Speci men Type: BLOOD SPECIMEN Ordering Facility: [facility] Address: [address] [place] [address] Performed By: #### 4 537-7, 30351-8 #### [facility] CLIA [id number] [address] [place] [address] [place] Triglyceride [Mass/Vol] 86 mg/dL Normal <150 [facility] Comment on above: Order Comment: Speci men Type: BLOOD SPECIMEN Ordering Facility: [facility] Address: [address] [place] [address] Result Comment: <150 mg/dL, Normal 150-199 mg/dL, Borderline high 200-499 mg/dL, High >499 mg/dL, Very high Performed By: #### 4 537-7, 18242-1 #### [facility] CLIA [id number] [address] [place], [place] [address] [place] PSA/PROSTATE SPECIFIC ANTIGE N SCREENINGon 05-17-2024 Prostate specific Ag [Mass/Vol] 1.35 ng/mL Normal <2.60 [facility] Comment on above: Order Comment: Speci men Type: BLOOD SPECIMEN Ordering Facility: [facility] Address: [address] [place] [address] Result Comment: Jessica morrow PSA test methodology used is the Electrochemiluminescence Immunoassay by [employer]. Total PSA values by differing methodologies cannot be interchanged. Performed By: #### P SAS1 #### [facility] CLIA [id number] [address] [place] [address] [place] CNOVon 05-16-2024 CNOV Office Visit (INTMWS ) ----- HOLLIS MASCORRO ([id number]) 1965 M Date Time Provider Department 05/16/24 6:20 PM KADEN DIAMOND INTMWS During your visit today, we recorded the following information about you: Temperature Pulse Respiration Blood pressure 98 degrees 68/minute 16/minute 98/68 Weight 84 kg Kaden Diamond MD 05/17/2024 7:28 AM Signed This note was created using [employer] M[employer]. Subjective Patient presents with: Abdominal Pain Hollis Mascorro is a 58 year old male with lower abdominal pressure, cramping, and mucosy diarrhea for one week. He attributed this to stress, as he gave a history of similar issues in the past treated with dicyclomine. [facility] to [facility] ago, and was prescribed dicyclomine with some improvement. He denied unusual food intake, travel, or antibiotic usage. Review of Systems Constitutional: Negative for appetite change, fatigue and fever. Respiratory: Negative for shortness of breath. Cardiovascular: Negative. Gastrointestinal: Positive for abdominal distention. Negative for anal bleeding, blood in stool, constipation, nausea and vomiting. Genitourinary: Positive for difficulty urinating. Negative for dysuria and flank pain. Neurological: Negative for dizziness and light-headedness. 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 - budesonide (PULMICORT) 0.5 mg/2 mL nebulizer solution Use 0.5 mg via nebulizer once daily. - rOPINIRole (REQUIP) 0.25 mg tablet Take [...] facility-administered medications for this visit. Objective BP 98/68 (BP Site: Left Arm, BP Position: Sitting, BP Cuff Size: Large Adult) Pulse 68 Temp 36.7 ?C (98 ?F) (Temporal) Resp 16 Wt 84 kg (185 lb 3 oz) BMI (P) 26.76 kg/m? Physical Exam Constitutional: General: He is not in acute distress. Appearance: He is not ill-appearing. Cardiovascular: Heart sounds: Normal heart sounds. Pulmonary: Breath sounds: Normal breath sounds. Abdominal: General: Abdomen is flat. Bowel sounds are normal. Palpations: Abdomen is soft. There is no mass. Tenderness: There is abdominal tenderness in the right lower quadrant and suprapubic area. There is rebound. There is no guarding. Hernia: No hernia is present. Neurological: Mental Status: He is alert. Latest Ref Rng 05/16/2024 GLUCOSE UA (POCT) Negative mg/dL Negative BILIRUBIN UA (POCT) Negative Negative KETONE UA (POCT) Negative mg/dL Negative SPECIFIC GRAVITY UA (POCT) 1.005 - 1.030 1.020 HEMOGLOBIN/BLOOD UA (POCT) Negative Negative PH UA (POCT) 4.5 - 8.0 5.5 PROTEIN UA (POCT) Negative mg/dL Negative UROBILINOGEN UA (POCT) Normal E.U./dL 0.2 NITRITE UA (POCT) Negative Negative LEUKOCYTES UA (POCT) Negative Negative COLOR UA (POCT) Yellow CLARITY UA (POCT) Clear Assessment and Plan 1. Diarrhea, unspecified type - ICD9: 787.91, ICD10: R19.7 (primary diagnosis) - Labs tomorrow. If labs benign, treat diarrhea. - After the visit, on med reconciliation, he was prescribed clindamycin last month by some other provider. - COMPREHENSIVE METABOLIC PANEL - C. DIFFICILE PCR- Added late. Patient did not recall antibiotic prescription in March. 2. Abdominal pain, lower - ICD9: 789.09, ICD10: R10.30 History of IBS. See above. - COMPREHENSIVE METABOLIC PANEL - SEDIMENTATION RATE, WESTERGREN - C-REACTIVE PROTEIN 3. Urinary hesitancy - ICD9: 788.64, ICD10: R39.11 - PSA/PROSTATE SPECIFIC ANTIGEN SCREENING MD Lobo Balderrama Victor H, MD 05/16/2024 7:50 PM Signed DO ALL LABS TOMORROW FASTING. NOTIFY LAB YOU ARE FASTING. Tatum Miller 05/19/2024 8:26 PM Signed Addended by: TATUM SLOAN on: 05/19/2024 08:26 PM Modules accepted: Orders Allergies As of Date: 05/16/2024 Noted Allergy Reaction AMPICILLIN 03/03/2006 bandaid [Other] 04/04/2009 2 - Rash bee stings [Other] 03/03/2006 12 - Shortness of Breath Seasonal Allergies [Other] 11/21/2006 Date Reviewed: 05/16/2024 Reviewed by: Dena Jameson LPN - Fully Assessed Reason for Visit: Abdominal Pain [1] Primary Visit (more content not included)... [facility], URINE (POC)on 2023 BILIRUBIN UA (POCT) Negative Negative [facility] CLARITY UA (POCT) Clear [facility] COLOR UA (POCT) Yellow [facility] GLUCOSE UA (POCT) Negative Negative mg/dL [facility] Hemoglobin Ql (U) Negative Negative [facility] KETONE UA (POCT) Negative Negative mg/dL [facility] LEUKOCYTES UA (POCT) Negative [facility] NITRITE UA (POCT) Negative Negative [facility] PH UA (POCT) 5.5 4.5 - 8.0 [facility] Protein Ql (U) Negative Negative mg/dL [facility] SPECIFIC GRAVITY UA (POCT) 1.020 1.005 - 1.030 [facility] UROBILINOGEN UA (POCT) 0.2 Lisa l E.U./dL [facility] Location:[facility], [address] [place] [address], [place], [place], [id number] [place] [address] POINT OF CARE [facility] CNOVon 04-12-2024 CNOV Office Visit (INTMWS ) ----- HOLLIS MASCORRO ([id number]) 1965 M Date Time Provider Department 04/12/24 2:40 PM KADEN DIAMOND INTMWS During your visit today, we recorded the following information about you: Temperature Pulse Respiration Blood pressure 98.6 degrees 68/minute 16/minute 104/72 Weight 87.5 kg Kaden Diamond MD 04/12/2024 3:25 PM Signed This note was created using [employer]. Subjective Hollis Mascorro is a 58 year old male. He was working on a tool at home when he injured his right distal index finger on 04/05/24. He was treated in the ED for finger laceration, nail avulsion, distal phalanx fracture. He was using a finger spilint and was here for suture removal. Review of Systems Constitutional: Negative for fever. Hematological: Does not bruise/bleed easily. ACTIVE PROBLEM LIST Chronic Rhinitis Toxic Effect [...] Take 1 to 2 tablets at bedtime. montelukast (SINGULAIR) 10 mg tablet Take 1 tablet by mouth daily at bedtime. fluticasone (FLONASE) 50 mcg/actuation nasal spray Use 2 Sprays in each nostril once daily. Rinse mouth after use. BREO ELLIPTA 200-25 mcg/dose inhaler fexofenadine (RACHELL ALLERGY) 180 mg tablet Take 1 tablet by mouth once daily. methotrexate 2.5 mg tablet Take 2.5 mg by mouth one time only. 7 tablets once weekly FOLIC ACID ORAL Take 2 tablets by mouth once daily. Dextromethorphan-guaiFENe sin (MUCINEX DM) 60-1,200 mg tab ER 12 hr Take by mouth. (Patient not taking: Reported on 04/12/2024) albuterol HFA (PROAIR HFA) 90 mcg/actuation inhaler Inhale 2 Puffs as instructed every 6 hours as needed. (Patient not taking: Reported on 12/15/2022) No current facility-administered medications for this visit. Objective BP 104/72 (BP Site: Left Arm, BP Position: Sitting, BP Cuff Size: Large Adult) Pulse 68 Temp 37 ?C (98.6 ?F) (Temporal) Resp 16 Wt 87.5 kg (192 lb 12.8 oz) BMI (P) 27.86 kg/m? Physical Exam Constitutional: General: He is not in acute distress. Appearance: He is not ill-appearing. Pulmonary: Effort: Pulmonary effort is normal. Musculoskeletal: Comments: Right index finger tip swollen, ecchymotic. Capillary refill within normal limits. Nail splint in place. 4 sutures removed without difficulty. Scant serosanguinous drainage noted. Assessment and Plan 1. Visit for suture removal - ICD9: V58.32, ICD10: Z48.02 (primary diagnosis) Removed.. 2. Laceration of right index finger without foreign body with damage to nail, subsequent encounter - ICD9: V58.89, ICD10: S61.310D Improved. - He was aware the new nail may be deformed. 3. Open nondisplaced fracture of distal phalanx of right index finger with routine healing, subsequent encounter - ICD9: V54.19, ICD10: S62.660D Continue splinting until better. 4. Psoriatic arthritis (HCC) - ICD9: 696.0, ICD10: L40.50 Labs need updating. - COMPLETE BLOOD COUNT - BASIC METABOLIC PANEL 5. Screening for lipid disorders - ICD9: V77.91, ICD10: Z13.220 Labs need updating. - LIPID PANEL BASIC Yearly check up recommended in 2 months. Kaden Diamond MD Allergies As of Date: 04/12/2024 Noted Allergy Reaction AMPICILLIN 03/03/2006 bandaid [Other] 04/04/2009 2 - Rash bee stings [Other] 03/03/2006 12 - Shortness of Breath Seasonal Allergies [Other] 11/21/2006 Date Reviewed: 04/12/2024 Reviewed by: Dena Jameson LPN - Fully Assessed Reason for Visit: Suture Removal [105] Primary Visit Diagnosis:Visit for suture removal [Z48.02] Other Visit Diagnoses:Laceration of right index finger without foreign body with damage to nail, subsequent encounter [S61.310D] Open nondisplaced fracture of distal phalanx of right index finger with routine healing, subsequent encounter [S62.660D] Psoriatic arthritis (HCC) [L40.50] Screening for lipid disorders [Z13.220] Order(s):COMPLETE BLOOD COUNT [SQCBC] Order #: [id number] FUTURE BASIC METABOLIC PANEL [SQBMP] Order #: [id number] FUTURE LIPID PANEL BASIC [SQLIPB] Order #: [id number] FUTURE Prescriptions as of 04/12/2024 - budesonide (PULMICORT) 0.5 mg/2 mL nebulizer solution Use 0.5 mg via nebulizer once daily. - rOPINIRole (REQUIP) 0.25 mg tablet Take 0.5 mg by mouth daily at bedtime. Take 1 to 2 tablets at bedtime. - Dextromethorphan-guaiFENe sin (MUCINEX DM) 60-1,200 mg tab ER 12 hr Take by mouth. - (more content not included)... Normal [facility] Absolute lymphocyte countOrd ered By: Catherine Preciado on 11-06-2023 Lymphocytes Auto (Unsp spec) [#/Vol] 1.26 10*3/uL 0.83-4.51 [facility] Automated lymphocyte count a s percentage of total leukocytesOrdered By: Catherine Preciado on 11-06-2023 Lymphocytes/100 WBC Auto (Unsp spec) 15.2 % 19-41 [facility] Basophil percentageOrdered B y: Catherine Preciado on 11-06-2023 Basophils/100 WBC (Bld) 0.8 % 0-1 [facility] Bilirubin [Mass/Vol] 0.60 mg/dL 0.20-1.00 [facility] Comment on above: For patients on eltr ombopag therapy, use of Dimension Watson TBIL is not recommended. Chloride [Moles/Vol] 107 mmol/L 98-107 [facility] Eosinophils/100 WBC (Bld) 2.2 % 0-5 [facility] Glucose [Mass/Vol] 81 mg/dL 74-106 [facility] Hemoglobin (Bld) [Mass/Vol] 15.7 g/dL 13.0-16.5 [facility] Monocytes/100 WBC (Bld) 12.9 % 0-10 [facility] Neutrophils (Bld) [#/Vol] 5.7 10*3/uL 2.0-7.7 [facility] Neutrophils/100 WBC (Bld) 68.3 % 47-70 [facility] Potassium [Moles/Vol] 3.9 mmol/L 3.5-5.1 [facility] Protein [Mass/Vol] 7.6 g/dL 6.4-8.2 [facility] Sodium [Moles/Vol] 138 mmol/L 136-145 [facility] WBC (Bld) [#/Vol] 8.3 10*3/uL 4.4-11.0 [facility] Determination of erythrocyte mean corpuscular volume (MCV)Ordered By: Catherine Preciado on 11-06-2023 MCV (RBC) [Entitic vol] 96.7 fL 80-94 [facility] Erythrocyte distribution wid th ratioOrdered By: Catherine Preciado on 11-06-2023 Erythrocyte distribution width (RBC) [Ratio] 13.1 % 11.6-14.6 [facility] Erythrocyte distribution wid th standard deviationOrdered By: Catherine Preciado on 11-06-2023 Erythrocyte distribution width (RBC) [Entitic vol] 46.4 fL 35.1-43.9 [facility] Hematocrit Auto (Bld) [Volum e fraction]Ordered By: Catherine Preciado on 11-06-2023 Hematocrit (Bld) [Volume fraction] 47.1 % 40-54 [facility] Immature granulocytes/100 WB C Auto (Bld)Ordered By: Catherinecarlos Preciado on 11-06-2023 Immature granulocytes/100 WBC (Bld) 0.600 % 0.0-0.9 [facility] Comment on above: IG% - Immature Granu locytes (promyelocytes, myelocytes and metamyelocytes) > 1% indicates that a LEFT SHIFT is Present. Laboratory - Chemistry and C hemistry - challengeOrdered By: Catherine Preciado on 11-06-2023 Albumin/Globulin [Mass ratio] 0.9 {ratio} 0.9-2.4 [facility] ALP [Catalytic activity/Vol] 107 U/L 45-117 [facility] ALT [Catalytic activity/Vol] 28 U/L 16-61 [facility] CO2 [Moles/Vol] 29.0 mmol/L 21.0-32.0 [facility] Globulin (S) [Mass/Vol] 3.9 g/dL 2.2-4.2 [facility] Urea nitrogen/Creatinine [Mass ratio] 15.6 mg/mg 10-20 [facility] Laboratory - Hematology and Cell countsOrdered By: Catherine Preciado on 11-06-2023 MCH (RBC) [Entitic mass] 32.2 pg 27.0-32.0 [facility] MCHC (RBC) [Mass/Vol] 33.3 g/dL 32-36 [facility] Nucleated RBC/100 WBC (Bld) [Ratio] 0 % 0-5 [facility] Platelet mean volume (Bld) [Entitic vol] 10.8 fL 6.2-12.0 [facility] Platelets (Bld) [#/Vol] 279 10*3/uL 150-450 [facility] No Panel InformationOrdered By: Catherine Preciado on 11-06-2023 Estimated GFR (MDRD) Amer 104 mL/min >60 [facility] Comment on above: GFR Calc Estimated GFR (MDRD) Non-Af Amer 86 mL/min >60 [facility] Comment on above: Non- GFR Calc RBC Auto (Bld) [#/Vol]Ordere d By: Catherine Preciado on 11-06-2023 RBC (Bld) [#/Vol] 4.87 10*6/uL 4.6-6.2 [facility] Serum or plasma calcium britni urement (mass/volume)Ordered By: Catherine Preciado on 11-06-2023 Calcium [Mass/Vol] 9.2 mg/dL 8.5-10.1 [facility] Serum or plasma creatinine m easurement (mass/volume)Ordered By: Catherine Preciado on 11-06-2023 Creatinine [Mass/Vol] 0.96 mg/dL 0.70-1.30 [facility] Comment on above: The validity of the calculated GFR & GFRAA in patients over 70 years has not been determined. Clinical correlation is essential. Serum or plasma urea nitroge n measurement (mass/volume)Ordered By: Catherine Preciado on 11-06-2023 Urea nitrogen [Mass/Vol] 15 mg/dL 7-18 [facility] Thin prep Papanicolaou smear with manual screeningOrdered By: Catherine Preciado on 11-06-2023 Thin prep Papanicolaou smear with manual screening 3.7 g/dL 3.2-5.0 [facility] Thin prep Papanicolaou smear with manual screening 24 U/L 15-37 [facility] Thin prep Papanicolaou smear with manual screening 2 5-15 [facility] Absolute lymphocyte countOrd ered By: Catherine Preciado on 08-07-2023 Lymphocytes Auto (Unsp spec) [#/Vol] 1.62 10*3/uL 0.83-4.51 [facility] Basophil percentageOrdered B y: Catherine Preciado on 08-07-2023 Basophils/100 WBC (Bld) 0.8 % 0-1 [facility] Bilirubin [Mass/Vol] 0.50 mg/dL 0.20-1.00 [facility] Comment on above: For patients on eltr ombopag therapy, use of Dimension Watson TBIL is not recommended. Chloride [Moles/Vol] 109 mmol/L 98-107 [facility] Eosinophils/100 WBC (Bld) 2.8 % 0-5 [facility] Glucose [Mass/Vol] 105 mg/dL 74-106 [facility] Comment on above: Fasting Glucose resu lt from 100 to 125 mg/dL suggests IMPAIRED HOMEOSTASIS per A.D.A. criteria. Neutrophils (Bld) [#/Vol] 5.0 10*3/uL 2.0-7.7 [facility] Neutrophils/100 WBC (Bld) 63.5 % 47-70 [facility] Potassium [Moles/Vol] 3.7 mmol/L 3.5-5.1 [facility] Protein [Mass/Vol] 7.1 g/dL 6.4-8.2 [facility] Sodium [Moles/Vol] 141 mmol/L 136-145 [facility] WBC (Bld) [#/Vol] 7.9 10*3/uL 4.4-11.0 [facility] Blood erythrocytes count (nu mber/volume)Ordered By: Catherine Preciado on 08-07-2023 RBC (Bld) [#/Vol] 4.76 10*6/uL 4.6-6.2 [facility] Blood hemoglobin measurement (mass/volume)Ordered By: Catherine Preciado on 08-07-2023 Hemoglobin (Bld) [Mass/Vol] 15.3 g/dL 13.0-16.5 [facility] Blood lymphocytes/100 leukoc ytesOrdered By: Catherine Preciado on 08-07-2023 Lymphocytes/100 WBC (Bld) 20.5 % 19-41 [facility] Blood monocytes/100 leukocyt esOrdered By: Catherine Preciado on 08-07-2023 Monocytes/100 WBC (Bld) 11.8 % 0-10 [facility] Blood platelet mean volumeOr dered By: Catherine Preciado on 08-07-2023 Platelet mean volume (Bld) [Entitic vol] 10.5 fL 6.2-12.0 [facility] Determination of erythrocyte mean corpuscular volume (MCV)Ordered By: Catherine Preciado on 08-07-2023 MCV (RBC) [Entitic vol] 95.6 fL 80-94 [facility] Hematocrit Auto (Bld) [Volum e fraction]Ordered By: Catherinecarlos Preciado on 08-07-2023 Hematocrit (Bld) [Volume fraction] 45.5 % 40-54 [facility] Laboratory - Chemistry and C hemistry - challengeOrdered By: [facility] Ozzy on 08-07-2023 ALP [Catalytic activity/Vol] 79 U/L 45-117 [facility] ALT [Catalytic activity/Vol] 33 U/L 16-61 [facility] CO2 [Moles/Vol] 25.0 mmol/L 21.0-32.0 [facility] Globulin (S) [Mass/Vol] 3.5 g/dL 2.2-4.2 [facility] Urea nitrogen/Creatinine [Mass ratio] 17.0 mg/mg 10-20 [facility] Laboratory - Hematology and Cell countsOrdered By: [facility] Erythrocyte distribution width (RBC) [Entitic vol] 44.4 fL 35.1-43.9 [facility] Erythrocyte distribution width (RBC) [Ratio] 12.6 % 11.6-14.6 [facility] Immature granulocytes/100 WBC (Bld) 0.600 % 0.0-0.9 [facility] Comment on above: IG% - Immature Granu locytes (promyelocytes, myelocytes and metamyelocytes) > 1% indicates that a LEFT SHIFT is Present. MCH (RBC) [Entitic mass] 32.1 pg 27.0-32.0 [facility] Nucleated RBC/100 WBC (Bld) [Ratio] 0 % 0-5 [facility] MCHC Auto (RBC) [Mass/Vol]Or dered By: Catherinecarlos Preciado on 08-07-2023 MCHC (RBC) [Mass/Vol] 33.6 g/dL 32-36 [facility] No Panel InformationOrdered By: Catherinecarlos Preciado on 08-07-2023 Estimated GFR (MDRD) Amer 100 mL/min >60 [facility] Comment on above: GFR Calc Estimated GFR (MDRD) Non-Af Amer 82 mL/min >60 [facility] Comment on above: Non- GFR Calc Platelets bldOrdered By: Warren Preciado on 08-07-2023 Platelets (Bld) [#/Vol] 243 10*3/uL 150-450 [facility] Serum or plasma albumin britni urement (mass/volume)Ordered By: Catherine Preciado on 08-07-2023 Albumin [Mass/Vol] 3.6 g/dL 3.2-5.0 [facility] Serum or plasma albumin/glob ulin mass ratioOrdered By: Catherine Preciado on 08-07-2023 Albumin/Globulin [Mass ratio] 1.0 {ratio} 0.9-2.4 [facility] Serum or plasma calcium britni urement (mass/volume)Ordered By: Catherine Preciado on 08-07-2023 Calcium [Mass/Vol] 8.6 mg/dL 8.5-10.1 [facility] Serum or plasma creatinine m easurement (mass/volume)Ordered By: Catherine Preciado on 08-07-2023 Creatinine [Mass/Vol] 1.00 mg/dL 0.70-1.30 [facility] Comment on above: The validity of the calculated GFR & GFRAA in patients over 70 years has not been determined. Clinical correlation is essential. Serum or plasma urea nitroge n measurement (mass/volume)Ordered By: Catherine Preciado on 08-07-2023 Urea nitrogen [Mass/Vol] 17 mg/dL 7-18 [facility] Thin prep Papanicolaou smear with manual screeningOrdered By: Catherine Preciado on 08-07-2023 Thin prep Papanicolaou smear with manual screening 23 U/L 15-37 [facility] Thin prep Papanicolaou smear with manual screening 7 5-15 [facility] Absolute lymphocyte countOrd ered By: Catherine Preciado on 05-15-2023 Lymphocytes Auto (Unsp spec) [#/Vol] 1.49 10*3/uL 0.83-4.51 [facility] Basophil percentageOrdered B y: Catherine Preciado on 05-15-2023 Basophils/100 WBC (Bld) 1.1 % 0-1 [facility] Bilirubin [Mass/Vol] 0.50 mg/dL 0.20-1.00 [facility] Comment on above: For patients on eltr ombopag therapy, use of Dimension Watson TBIL is not recommended. Chloride [Moles/Vol] 108 mmol/L 98-107 [facility] Eosinophils/100 WBC (Bld) 3.6 % 0-5 [facility] Glucose [Mass/Vol] 90 mg/dL 74-106 [facility] Neutrophils (Bld) [#/Vol] 5.0 10*3/uL 2.0-7.7 [facility] Neutrophils/100 WBC (Bld) 61.2 % 47-70 [facility] Potassium [Moles/Vol] 3.8 mmol/L 3.5-5.1 [facility] Protein [Mass/Vol] 7.3 g/dL 6.4-8.2 [facility] Sodium [Moles/Vol] 139 mmol/L 136-145 [facility] WBC (Bld) [#/Vol] 8.1 10*3/uL 4.4-11.0 [facility] Blood erythrocytes count (nu mber/volume)Ordered By: Catherine Preciado on 05-15-2023 RBC (Bld) [#/Vol] 4.81 10*6/uL 4.6-6.2 [facility] Blood hemoglobin measurement (mass/volume)Ordered By: Catherine Preciado on 05-15-2023 Hemoglobin (Bld) [Mass/Vol] 15.7 g/dL 13.0-16.5 [facility] Blood lymphocytes/100 leukoc ytesOrdered By: Catherine Preciado on 05-15-2023 Lymphocytes/100 WBC (Bld) 18.3 % 19-41 [facility] Blood monocytes/100 leukocyt esOrdered By: Catherine Preciado on 05-15-2023 Monocytes/100 WBC (Bld) 14.6 % 0-10 [facility] Blood platelet mean volumeOr dered By: Catherine Preciado on 05-15-2023 Platelet mean volume (Bld) [Entitic vol] 10.7 fL 6.2-12.0 [facility] Determination of erythrocyte mean corpuscular volume (MCV)Ordered By: Catherine Preciado on 05-15-2023 MCV (RBC) [Entitic vol] 96.0 fL 80-94 [facility] Hematocrit Auto (Bld) [Volum e fraction]Ordered By: Catherine Preciado on 05-15-2023 Hematocrit (Bld) [Volume fraction] 46.2 % 40-54 [facility] Laboratory - Chemistry and C hemistry - challengeOrdered By: Catherinecarlos Preciado on 05-15-2023 ALP [Catalytic activity/Vol] 102 U/L 45-117 [facility] ALT [Catalytic activity/Vol] 35 U/L 16-61 [facility] CO2 [Moles/Vol] 26.0 mmol/L 21.0-32.0 [facility] Globulin (S) [Mass/Vol] 3.4 g/dL 2.2-4.2 [facility] Urea nitrogen/Creatinine [Mass ratio] 16.0 mg/mg 10-20 [facility] Laboratory - Hematology and Cell countsOrdered By: [facility] Ozzy on 05-15-2023 Erythrocyte distribution width (RBC) [Entitic vol] 47.3 fL 35.1-43.9 [facility] Erythrocyte distribution width (RBC) [Ratio] 13.4 % 11.6-14.6 [facility] Immature granulocytes/100 WBC (Bld) 1.200 % 0.0-0.9 [facility] Comment on above: IG% - Immature Granu locytes (promyelocytes, myelocytes and metamyelocytes) > 1% indicates that a LEFT SHIFT is Present. MCH (RBC) [Entitic mass] 32.6 pg 27.0-32.0 [facility] Nucleated RBC/100 WBC (Bld) [Ratio] 0 % 0-5 [facility] MCHC Auto (RBC) [Mass/Vol]Or dered By: Catherine Preciado on 05-15-2023 MCHC (RBC) [Mass/Vol] 34.0 g/dL 32-36 [facility] No Panel InformationOrdered By: Catherine Preciado on 05-15-2023 Estimated GFR (MDRD) Amer 100 mL/min >60 [facility] Comment on above: GFR Calc Estimated GFR (MDRD) Non-Af Amer 82 mL/min >60 [facility] Comment on above: Non- GFR Calc Platelets bldOrdered By: Warren Preciado on 05-15-2023 Platelets (Bld) [#/Vol] 252 10*3/uL 150-450 [facility] Serum or plasma albumin britni urement (mass/volume)Ordered By: Catherine Preciado on 05-15-2023 Albumin [Mass/Vol] 3.9 g/dL 3.2-5.0 [facility] Serum or plasma albumin/glob ulin mass ratioOrdered By: Catherine Preciado on 05-15-2023 Albumin/Globulin [Mass ratio] 1.1 {ratio} 0.9-2.4 [facility] Serum or plasma calcium britni urement (mass/volume)Ordered By: Catherine Preciado on 05-15-2023 Calcium [Mass/Vol] 8.8 mg/dL 8.5-10.1 [facility] Serum or plasma creatinine m easurement (mass/volume)Ordered By: Catherine Preciado on 05-15-2023 Creatinine [Mass/Vol] 1.00 mg/dL 0.70-1.30 [facility] Comment on above: The validity of the calculated GFR & GFRAA in patients over 70 years has not been determined. Clinical correlation is essential. Serum or plasma urea nitroge n measurement (mass/volume)Ordered By: Catherine Preciado on 05-15-2023 Urea nitrogen [Mass/Vol] 16 mg/dL 7-18 [facility] Thin prep Papanicolaou smear with manual screeningOrdered By: Catherine Preciado on 05-15-2023 Thin prep Papanicolaou smear with manual screening 21 U/L 15-37 [facility] Thin prep Papanicolaou smear with manual screening 5 5-15 [facility] Absolute lymphocyte countOrd ered By: Dr. Preciado on 02-12-2023 Lymphocytes Auto (Unsp spec) [#/Vol] 1.71 10*3/uL 0.83-4.51 [facility] Basophil percentageOrdered B y: Dr. Preciado on 02-12-2023 Basophils/100 WBC (Bld) 1.0 % 0-1 [facility] Bilirubin [Mass/Vol] 0.40 mg/dL 0.20-1.00 [facility] Comment on above: For patients on eltr ombopag therapy, use of Dimension Watson TBIL is not recommended. Chloride [Moles/Vol] 110 mmol/L 98-107 [facility] Eosinophils/100 WBC (Bld) 3.0 % 0-5 [facility] Glucose [Mass/Vol] 92 mg/dL 74-106 [facility] Neutrophils (Bld) [#/Vol] 4.3 10*3/uL 2.0-7.7 [facility] Neutrophils/100 WBC (Bld) 59.6 % 47-70 [facility] Potassium [Moles/Vol] 4.2 mmol/L 3.5-5.1 [facility] Protein [Mass/Vol] 7.2 g/dL 6.4-8.2 [facility] Sodium [Moles/Vol] 141 mmol/L 136-145 [facility] WBC (Bld) [#/Vol] 7.2 10*3/uL 4.4-11.0 [facility] Blood erythrocytes count (nu mber/volume)Ordered By: Dr. Preciado on 02-12-2023 RBC (Bld) [#/Vol] 4.80 10*6/uL 4.6-6.2 [facility] Blood hemoglobin measurement (mass/volume)Ordered By: Dr. Preciado on 02-12-2023 Hemoglobin (Bld) [Mass/Vol] 15.7 g/dL 13.0-16.5 [facility] Blood lymphocytes/100 leukoc ytesOrdered By: Dr. Preciado on 02-12-2023 Lymphocytes/100 WBC (Bld) 23.7 % 19-41 [facility] Blood monocytes/100 leukocyt esOrdered By: Dr. Preciado on 02-12-2023 Monocytes/100 WBC (Bld) 12.4 % 0-10 [facility] Blood platelet mean volumeOr dered By: Dr. Preciado on 02-12-2023 Platelet mean volume (Bld) [Entitic vol] 10.5 fL 6.2-12.0 [facility] Determination of erythrocyte mean corpuscular volume (MCV)Ordered By: Dr. Preciado on 02-12-2023 MCV (RBC) [Entitic vol] 96.5 fL 80-94 [facility] Hematocrit Auto (Bld) [Volum e fraction]Ordered By: Dr. Preciado on 02-12-2023 Hematocrit (Bld) [Volume fraction] 46.3 % 40-54 [facility] Laboratory - Chemistry and C hemistry - challengeOrdered By: Dr. Preciado on 02-12-2023 ALP [Catalytic activity/Vol] 97 U/L 45-117 [facility] ALT [Catalytic activity/Vol] 41 U/L 16-61 [facility] CO2 [Moles/Vol] 27.0 mmol/L 21.0-32.0 [facility] Globulin (S) [Mass/Vol] 3.5 g/dL 2.2-4.2 [facility] Urea nitrogen/Creatinine [Mass ratio] 19.0 mg/mg 10-20 [facility] Laboratory - Hematology and Cell countsOrdered By: Dr. Preciado on 02-12-2023 Erythrocyte distribution width (RBC) [Entitic vol] 47.7 fL 35.1-43.9 [facility] Erythrocyte distribution width (RBC) [Ratio] 13.5 % 11.6-14.6 [facility] Immature granulocytes/100 WBC (Bld) 0.300 % 0.0-0.9 [facility] Comment on above: IG% - Immature Granu locytes (promyelocytes, myelocytes and metamyelocytes) > 1% indicates that a LEFT SHIFT is Present. MCH (RBC) [Entitic mass] 32.7 pg 27.0-32.0 [facility] Nucleated RBC/100 WBC (Bld) [Ratio] 0 % 0-5 [facility] MCHC Auto (RBC) [Mass/Vol]Or dered By: Dr. Preciado on 02-12-2023 MCHC (RBC) [Mass/Vol] 33.9 g/dL 32-36 [facility] No Panel InformationOrdered By: Dr. Preciado on 02-12-2023 Estimated GFR (MDRD) Amer 106 mL/min >60 [facility] Comment on above: GFR Calc Estimated GFR (MDRD) Non-Af Amer 88 mL/min >60 [facility] Comment on above: Non- GFR Calc Platelets bldOrdered By: Dr. Preciado on 02-12-2023 Platelets (Bld) [#/Vol] 234 10*3/uL 150-450 [facility] Serum or plasma albumin britni urement (mass/volume)Ordered By: Dr. Preciado on 02-12-2023 Albumin [Mass/Vol] 3.7 g/dL 3.2-5.0 [facility] Serum or plasma albumin/glob ulin mass ratioOrdered By: Dr. Preciado on 02-12-2023 Albumin/Globulin [Mass ratio] 1.1 {ratio} 0.9-2.4 [facility] Serum or plasma calcium britni urement (mass/volume)Ordered By: Dr. Preciado on 02-12-2023 Calcium [Mass/Vol] 8.9 mg/dL 8.5-10.1 [facility] Serum or plasma creatinine m easurement (mass/volume)Ordered By: Dr. Preciado on 02-12-2023 Creatinine [Mass/Vol] 0.94 mg/dL 0.70-1.30 [facility] Comment on above: The validity of the calculated GFR & GFRAA in patients over 70 years has not been determined. Clinical correlation is essential. Serum or plasma urea nitroge n measurement (mass/volume)Ordered By: Dr. Preciado on 02-12-2023 Urea nitrogen [Mass/Vol] 18 mg/dL 7-18 [facility] Thin prep Papanicolaou smear with manual screeningOrdered By: Dr. Preciado on 02-12-2023 Thin prep Papanicolaou smear with manual screening 28 U/L 15-37 [facility] Thin prep Papanicolaou smear with manual screening 4 5-15 [facility] Absolute lymphocyte countOrd ered By: Dr. Preciado on 11-12-2022 Lymphocytes Auto (Unsp spec) [#/Vol] 1.55 10*3/uL 0.83-4.51 [facility] Basophil percentageOrdered B y: Dr. Preciado on 11-12-2022 Basophils/100 WBC (Bld) 0.8 % 0-1 [facility] Bilirubin [Mass/Vol] 0.70 mg/dL 0.20-1.00 [facility] Comment on above: For patients on eltr ombopag therapy, use of Dimension Watson TBIL is not recommended. Chloride [Moles/Vol] 109 mmol/L 98-107 [facility] Eosinophils/100 WBC (Bld) 6.8 % 0-5 [facility] Glucose [Mass/Vol] 96 mg/dL 74-106 [facility] Neutrophils (Bld) [#/Vol] 4.2 10*3/uL 2.0-7.7 [facility] Neutrophils/100 WBC (Bld) 58.5 % 47-70 [facility] Potassium [Moles/Vol] 4.0 mmol/L 3.5-5.1 [facility] Protein [Mass/Vol] 7.3 g/dL 6.4-8.2 [facility] Sodium [Moles/Vol] 142 mmol/L 136-145 [facility] WBC (Bld) [#/Vol] 7.2 10*3/uL 4.4-11.0 [facility] Blood erythrocytes count (nu mber/volume)Ordered By: Dr. Preciado on 11-12-2022 RBC (Bld) [#/Vol] 4.72 10*6/uL 4.6-6.2 [facility] Blood hemoglobin measurement (mass/volume)Ordered By: Dr. Preciado on 11-12-2022 Hemoglobin (Bld) [Mass/Vol] 15.4 g/dL 13.0-16.5 [facility] Blood lymphocytes/100 leukoc ytesOrdered By: Dr. Preciado on 11-12-2022 Lymphocytes/100 WBC (Bld) 21.6 % 19-41 [facility] Blood monocytes/100 leukocyt esOrdered By: Dr. Preciado on 11-12-2022 Monocytes/100 WBC (Bld) 12.0 % 0-10 [facility] Blood platelet mean volumeOr dered By: Dr. Preciado on 11-12-2022 Platelet mean volume (Bld) [Entitic vol] 10.6 fL 6.2-12.0 [facility] Determination of erythrocyte mean corpuscular volume (MCV)Ordered By: Dr. Preciado on 11-12-2022 MCV (RBC) [Entitic vol] 96.6 fL 80-94 [facility] Hematocrit Auto (Bld) [Volum e fraction]Ordered By: Dr. Preciado on 11-12-2022 Hematocrit (Bld) [Volume fraction] 45.6 % 40-54 [facility] - Chemistry and C hemistry - challengeOrdered By: Dr. Preciado on 11-12-2022 ALP [Catalytic activity/Vol] 82 U/L 45-117 [facility] ALT [Catalytic activity/Vol] 35 U/L 16-61 [facility] CO2 [Moles/Vol] 26.0 mmol/L 21.0-32.0 [facility] Globulin (S) [Mass/Vol] 3.6 g/dL 2.2-4.2 [facility] Urea nitrogen/Creatinine [Mass ratio] 17.6 mg/mg 10-20 [facility] Laboratory - Hematology and Cell countsOrdered By: Dr. Preciado on 11-12-2022 Erythrocyte distribution width (RBC) [Entitic vol] 46.7 fL 35.1-43.9 [facility] Erythrocyte distribution width (RBC) [Ratio] 13.0 % 11.6-14.6 [facility] Immature granulocytes/100 WBC (Bld) 0.300 % 0.0-0.9 [facility] Comment on above: IG% - Immature Granu locytes (promyelocytes, myelocytes and metamyelocytes) > 1% indicates that a LEFT SHIFT is Present. MCH (RBC) [Entitic mass] 32.6 pg 27.0-32.0 [facility] Nucleated RBC/100 WBC (Bld) [Ratio] 0 % 0-5 [facility] MCHC Auto (RBC) [Mass/Vol]Or dered By: Dr. Preciado on 11-12-2022 MCHC (RBC) [Mass/Vol] 33.8 g/dL 32-36 [facility] No Panel InformationOrdered By: Dr. Preciado on 11-12-2022 Estimated GFR (MDRD) Amer 98 mL/min >60 [facility] Comment on above: GFR Calc Estimated GFR (MDRD) Non-Af Amer 81 mL/min >60 [facility] Comment on above: Non- GFR Calc Platelets bldOrdered By: Dr. Preciado on 11-12-2022 Platelets (Bld) [#/Vol] 261 10*3/uL 150-450 [facility] Serum or plasma albumin britni urement (mass/volume)Ordered By: Dr. Preciado on 11-12-2022 Albumin [Mass/Vol] 3.7 g/dL 3.2-5.0 [facility] Serum or plasma albumin/glob ulin mass ratioOrdered By: Dr. Preciaod on 11-12-2022 Albumin/Globulin [Mass ratio] 1.0 {ratio} 0.9-2.4 [facility] Serum or plasma calcium britni urement (mass/volume)Ordered By: Dr. Preciado on 11-12-2022 Calcium [Mass/Vol] 9.3 mg/dL 8.5-10.1 [facility] Serum or plasma creatinine m easurement (mass/volume)Ordered By: Dr. Preciado on 11-12-2022 Creatinine [Mass/Vol] 1.02 mg/dL 0.70-1.30 [facility] Comment on above: The validity of the calculated GFR & GFRAA in patients over 70 years has not been determined. Clinical correlation is essential. Serum or plasma urea nitroge n measurement (mass/volume)Ordered By: Dr. Preciado on 11-12-2022 Urea nitrogen [Mass/Vol] 18 mg/dL 7-18 [facility] Thin prep Papanicolaou smear with manual screeningOrdered By: Dr. Preciado on 11-12-2022 Thin prep Papanicolaou smear with manual screening 26 U/L 15-37 [facility] Thin prep Papanicolaou smear with manual screening 7 5-15 [facility] Routine wound cultureOrdered By: Levi Wong on 11-08-2022 Bacteria identified Cx Nom (Wound) No growth aerobically. [facility] Gram stain for investigation of transfusion reactionOrdered By: Levi Wong on 11-06-2022 Microscopic observation Gram stain Nom (Unsp spec) [facility] Absolute lymphocyte countOrd ered By: Dr. Preciado on 08-15-2022 Lymphocytes Auto (Unsp spec) [#/Vol] 1.27 10*3/uL 0.83-4.51 [facility] Basophil percentageOrdered B y: Dr. Preciado on 08-15-2022 Basophils/100 WBC (Bld) 0.9 % 0-1 [facility] Bilirubin [Mass/Vol] 0.50 mg/dL 0.20-1.00 [facility] Comment on above: For patients on eltr ombopag therapy, use of Dimension Watson TBIL is not recommended. Chloride [Moles/Vol] 109 mmol/L 98-107 [facility] Eosinophils/100 WBC (Bld) 4.9 % 0-5 [facility] Glucose [Mass/Vol] 104 mg/dL 74-106 [facility] Comment on above: Fasting Glucose resu lt from 100 to 125 mg/dL suggests IMPAIRED HOMEOSTASIS per A.D.A. criteria. Neutrophils (Bld) [#/Vol] 5.0 10*3/uL 2.0-7.7 [facility] Neutrophils/100 WBC (Bld) 63.5 % 47-70 [facility] Potassium [Moles/Vol] 4.2 mmol/L 3.5-5.1 [facility] Protein [Mass/Vol] 6.8 g/dL 6.4-8.2 [facility] Sodium [Moles/Vol] 141 mmol/L 136-145 [facility] WBC (Bld) [#/Vol] 7.8 10*3/uL 4.4-11.0 [facility] Blood erythrocytes count (nu mber/volume)Ordered By: Dr. Preciado on 08-15-2022 RBC (Bld) [#/Vol] 4.71 10*6/uL 4.6-6.2 [facility] Blood hemoglobin measurement (mass/volume)Ordered By: Dr. Preciado on 08-15-2022 Hemoglobin (Bld) [Mass/Vol] 15.1 g/dL 13.0-16.5 [facility] Blood lymphocytes/100 leukoc ytesOrdered By: Dr. Preciado on 08-15-2022 Lymphocytes/100 WBC (Bld) 16.3 % 19-41 [facility] Blood monocytes/100 leukocyt esOrdered By: Dr. Preciado on 08-15-2022 Monocytes/100 WBC (Bld) 13.6 % 0-10 [facility] Blood platelet mean volumeOr dered By: Dr. Preciado on 08-15-2022 Platelet mean volume (Bld) [Entitic vol] 10.4 fL 6.2-12.0 [facility] Determination of erythrocyte mean corpuscular volume (MCV)Ordered By: Dr. Preciado on 08-15-2022 MCV (RBC) [Entitic vol] 95.8 fL 80-94 [facility] Hematocrit Auto (Bld) [Volum e fraction]Ordered By: Dr. Preciado on 08-15-2022 Hematocrit (Bld) [Volume fraction] 45.1 % 40-54 [facility] Laboratory - Chemistry and C hemistry - challengeOrdered By: Dr. Preciado on 08-15-2022 ALP [Catalytic activity/Vol] 100 U/L 45-117 [facility] ALT [Catalytic activity/Vol] 32 U/L 16-61 [facility] CO2 [Moles/Vol] 27.0 mmol/L 21.0-32.0 [facility] Globulin (S) [Mass/Vol] 3.0 g/dL 2.2-4.2 [facility] Urea nitrogen/Creatinine [Mass ratio] 13.2 mg/mg 10-20 [facility] Laboratory - Hematology and Cell countsOrdered By: Dr. Preciado on 08-15-2022 Erythrocyte distribution width (RBC) [Entitic vol] 47.3 fL 35.1-43.9 [facility] Erythrocyte distribution width (RBC) [Ratio] 13.6 % 11.6-14.6 [facility] Immature granulocytes/100 WBC (Bld) 0.800 % 0.0-0.9 [facility] Comment on above: IG% - Immature Granu locytes (promyelocytes, myelocytes and metamyelocytes) > 1% indicates that a LEFT SHIFT is Present. MCH (RBC) [Entitic mass] 32.1 pg 27.0-32.0 [facility] Nucleated RBC/100 [facility] (Bld) [[facility]] 0 [facility] [Mass/Vol]Or dered By: Dr. Preciado on 08-15-2022 MCHC (RBC) [Mass/Vol] 33.5 g/dL 32-36 [facility] No Panel InformationOrdered By: Dr. Preciado on 08-15-2022 Estimated GFR (MDRD) Amer 111 mL/min >60 [facility] Comment on above: GFR Calc Estimated GFR (MDRD) Non-Af Amer 92 mL/min >60 [facility] Comment on above: Non- GFR Calc Platelets bldOrdered By: Dr. Preciado on 08-15-2022 Platelets (Bld) [#/Vol] 267 10*3/uL 150-450 [facility] Serum or plasma albumin britni urement (mass/volume)Ordered By: Dr. Preciado on 08-15-2022 Albumin [Mass/Vol] 3.8 g/dL 3.2-5.0 [facility] Serum or plasma albumin/glob ulin mass ratioOrdered By: Dr. Preciado on 08-15-2022 Albumin/Globulin [Mass ratio] 1.3 {ratio} 0.9-2.4 [facility] Serum or plasma calcium britni urement (mass/volume)Ordered By: Dr. Preciado on 08-15-2022 Calcium [Mass/Vol] 9.0 mg/dL 8.5-10.1 [facility] Serum or plasma creatinine m easurement (mass/volume)Ordered By: Dr. Preciado on 08-15-2022 Creatinine [Mass/Vol] 0.91 mg/dL 0.70-1.30 [facility] Comment on above: The validity of the calculated GFR & GFRAA in patients over 70 years has not been determined. Clinical correlation is essential. Serum or plasma urea nitroge n measurement (mass/volume)Ordered By: Dr. Preciado on 08-15-2022 Urea nitrogen [Mass/Vol] 12 mg/dL 7-18 [facility] Thin prep Papanicolaou smear with manual screeningOrdered By: Dr. Preciado on 08-15-2022 Thin prep Papanicolaou smear with manual screening 23 U/L 15-37 [facility] Thin prep Papanicolaou smear with manual screening 5 5-15 [facility] Atypical perinuclear antineu trophil cytoplasmic antibodies measurementOrdered By: Dr. Linda on 08-06-2022 Neutrophil cytoplasmic Ab.perinuclear.atypical IF (S) [Titer] <1:20 titer Neg:<1:20 [facility] Comment on above: The atypical pANCA p attern has been observed in asignificant percentage of patients with ulcerative colitis,primary sclerosing cholangitis and autoimmune hepatitis. Serum classic neutrophil cyt oplasmic antibody assay (units/volume)Ordered By: Dr. Linda on 08-06-2022 Neutrophil cytoplasmic Ab.classic Qn (S) <1:20 titer Neg:<1:20 [facility] Serum or plasma angiotensin converting enzyme measurement (enzymatic activity/volume)Ordered By: Dr. Linda on 08-06-2022 Angiotensin converting enzyme [Catalytic activity/Vol] 26 U/L 14-82 [facility] Comment on above: Performed at: [facility] [employer] [place] [id number] Director: Fabricio Ford PhD, Phone: [phone] Serum perinuclear neutrophil cytoplasmic antibody titer by immunofluorescenceOrdered By: Dr. Linda on 08-06-2022 Neutrophil cytoplasmic Ab.perinuclear IF (S) [Titer] <1:20 titer Neg:<1:20 [facility] Comment on above: The presence of posi tive fluorescence exhibiting P-ANCA orC-ANCA patterns alone is not specific for the diagnosis ofWegener's Granulomatosis (WG) or microscopic polyangiitis.Decisions about treatment should not be based solely onANCA IFA results. The [employer] Consensusrecommends follow up testing of positive sera with both MN-3 and MPO-ANCA enzyme immunoassays. As many as 5% serumsamples are positive only by EIA. Ref. AM J Clin Icqfjo6521;111:507-513. XR RIBS/CHEST 3V AP RIB/OBLS /CXR RIGHTon 06-11-2022 [facility] XR Ribs - right Views and Ch est PAon 06-11-2022 IMPRESSION: Unremarkable radiographic right-sided rib series. Training Development Manager: JAZMÍN Transcribe Date/Time: Jun 11 2022 2:40P Dictated by : FRANCES COOL MD This examination was interpreted and the report reviewed and electronically signed by: FRANCES COOL MD on Jun 11 2022 2:41PM EST DIVISION OF RADIOLOGY * * *Final Report* * * DATE OF EXAM: Jun 11 2022 2:11PM WOX 5244 - XR RIB/CHST 3V AP RIB/OBL/CHST R / PROCEDURE REASON: Rib pain on right side * * * * Physician Interpretation * * * * CLINICAL INDICATION: Rib pain TECHNIQUE: 3 view right side of radiographic rib series with inclusion of a single frontal view of the chest for purposes of comparison/symmetry COMPARISON: None FINDINGS: No acute displaced right rib fracture identified. Normal cardiomediastinal silhouette. Incidental note made of azygous fissure, normal anatomic variant. No focal consolidation. No discernible pleural effusion or pneumothorax. DIVISION OF RADIOLOGY Provider, [facility] - 06/11/2022 * * *Final Report* * * DATE OF EXAM: Jun 11 2022 2:11PM WOX 5244 - XR RIB/CHST 3V AP RIB/OBL/CHST R / PROCEDURE REASON: Rib pain on right side * * * * Physician Interpretation * * * * CLINICAL INDICATION: Rib pain TECHNIQUE: 3 view right side of radiographic rib series with inclusion of a single frontal view of the chest for purposes of comparison/symmetry COMPARISON: None FINDINGS: No acute displaced right rib fracture identified. Normal cardiomediastinal silhouette. Incidental note made of azygous fissure, normal anatomic variant. No focal consolidation. No discernible pleural effusion or pneumothorax. IMPRESSION IMPRESSION: Unremarkable radiographic right-sided rib series. Training Development Manager: PSCB Transcribe Date/Time: Jun 11 2022 2:40P Dictated by : FRANCES COOL MD This examination was interpreted and the report reviewed and electronically signed by: FRANCES COOL MD on Jun 11 2022 2:41PM EST [facility] Radiology Study observation (narrative) Adithya Mcelroy XR Ribs - right Views and Ch est PAOrdered By: Cc Provider on 06-11-2022 [facility] Absolute lymphocyte counton 05-16-2022 Lymphocytes Auto (Unsp spec) [#/Vol] 1.55 10*3/uL 0.83-4.51 [facility] Work Phone: Basophil percentageon 2021 Basophils/100 WBC (Bld) 0.6 % 0-1 [facility] Work Phone: Bilirubin [Mass/Vol] 0.50 mg/dL 0.20-1.00 [facility] Work Phone: Comment on above: For patients on eltr ombopag therapy, use of Dimension Watson TBIL is not recommended. Chloride [Moles/Vol] 110 mmol/L 98-107 [facility] Work Phone: Eosinophils/100 WBC (Bld) 2.1 % 0-5 [facility] Work Phone: Glucose [Mass/Vol] 91 mg/dL 74-106 [facility] Work Phone: Neutrophils (Bld) [#/Vol] 6.3 10*3/uL 2.0-7.7 [facility] Work Phone: Neutrophils/100 WBC (Bld) 66.7 % 47-70 [facility] Work Phone: Potassium [Moles/Vol] 3.9 mmol/L 3.5-5.1 [facility] Work Phone: Protein [Mass/Vol] 7.3 g/dL 6.4-8.2 [facility] Work Phone: Sodium [Moles/Vol] 141 mmol/L 136-145 [facility] Work Phone: WBC (Bld) [#/Vol] 9.4 10*3/uL 4.4-11.0 [facility] Work Phone: Blood erythrocytes count (nu mber/volume)on 05-16-2022 RBC (Bld) [#/Vol] 4.75 10*6/uL 4.6-6.2 [facility] Work Phone: Blood hemoglobin measurement (mass/volume)on 05-16-2022 Hemoglobin (Bld) [Mass/Vol] 16.0 g/dL 13.0-16.5 [facility] Work Phone: Blood lymphocytes/100 leukoc yteson 05-16-2022 Lymphocytes/100 WBC (Bld) 16.5 % 19-41 [facility] Work Phone: Blood monocytes/100 leukocyt eson 05-16-2022 Monocytes/100 WBC (Bld) 13.4 % 0-10 [facility] Work Phone: Blood platelet mean volumeon 05-16-2022 Platelet mean volume (Bld) [Entitic vol] 10.7 fL 6.2-12.0 [facility] Work Phone: Determination of erythrocyte mean corpuscular volume (MCV)on 05-16-2022 MCV (RBC) [Entitic vol] 96.6 fL 80-94 [facility] Work Phone: Hematocrit Auto (Bld) [Volum e fraction]on 05-16-2022 Hematocrit (Bld) [Volume fraction] 45.9 % 40-54 [facility] Work Phone: Laboratory - Chemistry and C hemistry - challengeon 05-16-2022 ALP [Catalytic activity/Vol] 93 U/L 45-117 [facility] Work Phone: ALT [Catalytic activity/Vol] 35 U/L 16-61 [facility] Work Phone: CO2 [Moles/Vol] 26.0 mmol/L 21.0-32.0 [facility] Work Phone: Globulin (S) [Mass/Vol] 3.6 g/dL 2.2-4.2 [facility] Work Phone: Urea nitrogen/Creatinine [Mass ratio] 14.2 mg/mg 10-20 [facility] Work Phone: Laboratory - Hematology and Cell countson 05-16-2022 Erythrocyte distribution width (RBC) [Entitic vol] 47.2 fL 35.1-43.9 [facility] Work Phone: Erythrocyte distribution width (RBC) [Ratio] 13.4 % 11.6-14.6 [facility] Work Phone: Immature granulocytes/100 WBC (Bld) 0.700 % 0.0-0.9 [facility] Work Phone: Comment on above: IG% - Immature Granu locytes (promyelocytes, myelocytes and metamyelocytes) > 1% indicates that a LEFT SHIFT is Present. MCH (RBC) [Entitic mass] 33.7 pg 27.0-32.0 [facility] Work Phone: Nucleated RBC/100 WBC (Bld) [Ratio] 0 % 0-5 [facility] Work Phone: MCHC Auto (RBC) [Mass/Vol]on 05-16-2022 MCHC (RBC) [Mass/Vol] 34.9 g/dL 32-36 [facility] Work Phone: No Panel Informationon 05-16 Estimated GFR (MDRD) Amer 101 mL/min >60 [facility] Work Phone: Comment on above: GFR Calc Estimated GFR (MDRD) Non-Af Amer 84 mL/min >60 [facility] Work Phone: Comment on above: Non- GFR Calc Platelets bldon 05-16-2022 Platelets (Bld) [#/Vol] 252 10*3/uL 150-450 [facility] Work Phone: Serum or plasma albumin britni urement (mass/volume)on 05-16-2022 Albumin [Mass/Vol] 3.7 g/dL 3.2-5.0 [facility] Work Phone: Serum or plasma albumin/glob ulin mass ratioon 05-16-2022 Albumin/Globulin [Mass ratio] 1.0 {ratio} 0.9-2.4 [facility] Work Phone: Serum or plasma calcium britni urement (mass/volume)on 05-16-2022 Calcium [Mass/Vol] 9.2 mg/dL 8.5-10.1 [facility] Work Phone: Serum or plasma creatinine m easurement (mass/volume)on 05-16-2022 Creatinine [Mass/Vol] 0.99 mg/dL 0.70-1.30 [facility] Work Phone: Comment on above: The validity of the calculated GFR & GFRAA in patients over 70 years has not been determined. Clinical correlation is essential. Serum or plasma urea nitroge n measurement (mass/volume)on 05-16-2022 Urea nitrogen [Mass/Vol] 14 mg/dL 7-18 [facility] Work Phone: Thin prep Papanicolaou smear with manual screeningon 05-16-2022 Thin prep Papanicolaou smear with manual screening 18 U/L 15-37 [facility] Work Phone: [phone] Thin prep Papanicolaou smear with manual screening 5 5-15 [facility] Work Phone: [phone] Absolute lymphocyte counton 04-11-2022 Lymphocytes Auto (Unsp spec) [#/Vol] 1.60 10*3/uL 0.83-4.51 [facility] Work Phone: Basophil percentageon 2021 Basophils/100 WBC (Bld) 0.8 % 0-1 [facility] Work Phone: Eosinophils/100 WBC (Bld) 2.6 % 0-5 [facility] Work Phone: [phone] Neutrophils (Bld) [#/Vol] 4.7 10*3/uL 2.0-7.7 [facility] Work Phone: [phone] Neutrophils/100 WBC (Bld) 60.8 % 47-70 [facility] Work Phone: WBC (Bld) [#/Vol] 7.7 10*3/uL 4.4-11.0 [facility] Work Phone: Blood erythrocytes count (nu mber/volume)on 04-11-2022 RBC (Bld) [#/Vol] 4.73 10*6/uL 4.6-6.2 [facility] Work Phone: Blood hemoglobin measurement (mass/volume)on 04-11-2022 Hemoglobin (Bld) [Mass/Vol] 15.5 g/dL 13.0-16.5 [facility] Work Phone: Blood lymphocytes/100 leukoc yteson 04-11-2022 Lymphocytes/100 WBC (Bld) 20.8 % 19-41 [facility] Work Phone: Blood monocytes/100 leukocyt eson 04-11-2022 Monocytes/100 WBC (Bld) 14.1 % 0-10 [facility] Work Phone: Blood platelet mean volumeon 04-11-2022 Platelet mean volume (Bld) [Entitic vol] 10.3 fL 6.2-12.0 [facility] Work Phone: Determination of erythrocyte mean corpuscular volume (MCV)on 04-11-2022 MCV (RBC) [Entitic vol] 95.8 fL 80-94 [facility] Work Phone: Erythrocyte sedimentation ra yogi 04-11-2022 ESR (Bld) [Velocity] 3 mm[facility]h 0-20 [facility] Work Phone: Hematocrit Auto (Bld) [Volum e fraction]on 04-11-2022 Hematocrit (Bld) [Volume fraction] 45.3 % 40-54 [facility] Work Phone: Laboratory - Hematology and Cell countson 04-11-2022 Erythrocyte distribution width (RBC) [Entitic vol] 45.4 fL 35.1-43.9 [facility] Work Phone: Erythrocyte distribution width (RBC) [Ratio] 13.2 % 11.6-14.6 [facility] Work Phone: Immature granulocytes/100 WBC (Bld) 0.900 % 0.0-0.9 [facility] Work Phone: Comment on above: IG% - Immature Granu locytes (promyelocytes, myelocytes and metamyelocytes) > 1% indicates that a LEFT SHIFT is Present. MCH (RBC) [Entitic mass] 32.8 pg 27.0-32.0 [facility] Work Phone: Nucleated RBC/100 WBC (Bld) [Ratio] 0 % 0-5 [facility] Work Phone: MCHC Auto (RBC) [Mass/Vol]on 04-11-2022 MCHC (RBC) [Mass/Vol] 34.2 g/dL 32-36 [facility] Work Phone: Platelets bldon 04-11-2022 Platelets (Bld) [#/Vol] 276 10*3/uL 150-450 [facility] Work Phone: Serum or plasma C reactive p rotein measurement (mass/volume)on 04-11-2022 CRP [Mass/Vol] mg/L 0.0-3.0 [facility] Work Phone: Comment on above: C-Reactive Protein ( CRP) provides useful information for thediagnosis, therapy and monitoring of inflammatory processesand associated diseases. For the evaluation of Relative Riskfor Cardiovascular Disease, a High Sensitivity CRP (HSCRP)should be ordered. Absolute lymphocyte counton 02-21-2022 Lymphocytes Auto (Unsp spec) [#/Vol] 2.29 10*3/uL 0.83-4.51 [facility] Work Phone: Basophil percentageon 2021 Basophils/100 WBC (Bld) 1.0 % 0-1 [facility] Work Phone: Bilirubin [Mass/Vol] 0.20 mg/dL 0.20-1.00 [facility] Work Phone: Comment on above: For patients on eltr ombopag therapy, use of Dimension Watson TBIL is not recommended. Chloride [Moles/Vol] 104 mmol/L 98-107 [facility] Work Phone: Eosinophils/100 WBC (Bld) 4.1 % 0-5 [facility] Work Phone: Glucose [Mass/Vol] 92 mg/dL 74-106 [facility] Work Phone: [phone] Neutrophils (Bld) [#/Vol] 5.9 10*3/uL 2.0-7.7 [facility] Work Phone: Neutrophils/100 WBC (Bld) 57.0 % 47-70 [facility] Work Phone: Potassium [Moles/Vol] 3.8 mmol/L 3.5-5.1 [facility] Work Phone: Protein [Mass/Vol] 7.6 g/dL 6.4-8.2 [facility] Work Phone: Sodium [Moles/Vol] 138 mmol/L 136-145 [facility] Work Phone: WBC (Bld) [#/Vol] 10.4 10*3/uL 4.4-11.0 [facility] Work Phone: Blood erythrocytes count (nu mber/volume)on 02-21-2022 RBC (Bld) [#/Vol] 4.82 10*6/uL 4.6-6.2 [facility] Work Phone: Blood hemoglobin measurement (mass/volume)on 02-21-2022 Hemoglobin (Bld) [Mass/Vol] 15.8 g/dL 13.0-16.5 [facility] Work Phone: Blood lymphocytes/100 leukoc yteson 02-21-2022 Lymphocytes/100 WBC (Bld) 22.1 % 19-41 [facility] Work Phone: Blood manual differential co mment interpretation (narrative result)on 02-21-2022 Manual differential comment Andrew (Bld) [Interp] SCANNED [facility] Work Phone: Blood monocytes/100 leukocyt eson 02-21-2022 Monocytes/100 WBC (Bld) 14.6 % 0-10 [facility] Work Phone: Blood platelet mean volumeon 02-21-2022 Platelet mean volume (Bld) [Entitic vol] 10.5 fL 6.2-12.0 [facility] Work Phone: Determination of erythrocyte mean corpuscular volume (MCV)on 02-21-2022 MCV (RBC) [Entitic vol] 96.3 fL 80-94 [facility] Work Phone: Hematocrit Auto (Bld) [Volum e fraction]on 02-21-2022 Hematocrit (Bld) [Volume fraction] 46.4 % 40-54 [facility] Work Phone: Laboratory - Chemistry and C hemistry - challengeon 02-21-2022 ALP [Catalytic activity/Vol] 83 U/L 45-117 [facility] Work Phone: ALT [Catalytic activity/Vol] 50 U/L 16-61 [facility] Work Phone: CO2 [Moles/Vol] 26.0 mmol/L 21.0-32.0 [facility] Work Phone: Globulin (S) [Mass/Vol] 3.8 g/dL 2.2-4.2 [facility] Work Phone: Urea nitrogen/Creatinine [Mass ratio] 16.8 mg/mg 10-20 [facility] Work Phone: Laboratory - Hematology and Cell countson 02-21-2022 Erythrocyte distribution width (RBC) [Entitic vol] 46.4 fL 35.1-43.9 [facility] Work Phone: Erythrocyte distribution width (RBC) [Ratio] 13.2 % 11.6-14.6 [facility] Work Phone: Immature granulocytes/100 WBC (Bld) 1.200 % 0.0-0.9 [facility] Work Phone: Comment on above: IG% - Immature Granu locytes (promyelocytes, myelocytes and metamyelocytes) > 1% indicates that a LEFT SHIFT is Present. MCH (RBC) [Entitic mass] 32.8 pg 27.0-32.0 [facility] Work Phone: Nucleated RBC/100 WBC (Bld) [Ratio] 0 % 0-5 [facility] Work Phone: MCHC Auto (RBC) [Mass/Vol]on 02-21-2022 MCHC (RBC) [Mass/Vol] 34.1 g/dL 32-36 [facility] Work Phone: No Panel Informationon 02-21 Estimated GFR (MDRD) Amer 77 mL/min >60 [facility] Work Phone: Comment on above: GFR Calc Estimated GFR (MDRD) Non-Af Amer 64 mL/min >60 [facility] Work Phone: Comment on above: Non- GFR Calc Platelets bldon 02-21-2022 Platelets (Bld) [#/Vol] 280 10*3/uL 150-450 [facility] Work Phone: Review by pathologiston Pathologist review Andrew (Unsp spec) [Interp] Reviewed [facility] Work Phone: Comment on above: Previous reported re sult: Anita julio Edited by: SERENITY on 02/24/22:1331MacrocytosisClinical correlation necessary.Blake Muñiz M.D. 02/24/22 AMENDED REPORT 02/24/22 1331 PATH REV previously reported as: Anita julio Serum or plasma albumin britni urement (mass/volume)on 02-21-2022 Albumin [Mass/Vol] 3.8 g/dL 3.2-5.0 [facility] Work Phone: Serum or plasma albumin/glob ulin mass ratioon 02-21-2022 Albumin/Globulin [Mass ratio] 1.0 {ratio} 0.9-2.4 [facility] Work Phone: Serum or plasma calcium britni urement (mass/volume)on 02-21-2022 Calcium [Mass/Vol] 9.2 mg/dL 8.5-10.1 [facility] Work Phone: Serum or plasma creatinine m easurement (mass/volume)on 02-21-2022 Creatinine [Mass/Vol] 1.25 mg/dL 0.70-1.30 [facility] Work Phone: Comment on above: The validity of the calculated GFR & GFRAA in patients over 70 years has not been determined. Clinical correlation is essential. Serum or plasma urea nitroge n measurement (mass/volume)on 02-21-2022 Urea nitrogen [Mass/Vol] 21 mg/dL 7-18 [facility] Work Phone: Thin prep Papanicolaou smear with manual screeningon 02-21-2022 Thin prep Papanicolaou smear with manual screening 24 U/L 15-37 [facility] Work Phone: Thin prep Papanicolaou smear with manual screening 8 5-15 [facility] Work Phone: Absolute lymphocyte counton 11-14-2021 Lymphocytes Auto (Unsp spec) [#/Vol] 1.82 10*3/uL 0.83-4.51 [facility] Work Phone: Basophil percentageon 2021 Basophils/100 WBC (Bld) 0.8 % 0-1 [facility] Work Phone: Bilirubin [Mass/Vol] 0.50 mg/dL 0.20-1.00 [facility] Work Phone: Comment on above: For patients on eltr ombopag therapy, use of Dimension Watson TBIL is not recommended. Chloride [Moles/Vol] 105 mmol/L 98-107 [facility] Work Phone: Eosinophils/100 WBC (Bld) 3.7 % 0-5 [facility] Work Phone: Glucose [Mass/Vol] 92 mg/dL 74-106 [facility] Work Phone: Neutrophils (Bld) [#/Vol] 5.4 10*3/uL 2.0-7.7 [facility] Work Phone: [phone] Neutrophils/100 WBC (Bld) 62.6 % 47-70 [facility] Work Phone: Potassium [Moles/Vol] 3.8 mmol/L 3.5-5.1 [facility] Work Phone: Protein [Mass/Vol] 7.5 g/dL 6.4-8.2 [facility] Work [facility]: [phone] Sodium [Moles/Vol] 139 mmol/L 136-145 [facility] Work Phone: WBC (Bld) [#/Vol] 8.6 10*3/uL 4.4-11.0 [facility] Work Phone: Blood erythrocytes count (nu mber/volume)on 11-14-2021 RBC (Bld) [#/Vol] 4.85 10*6/uL 4.6-6.2 [facility]: Blood hemoglobin measurement (mass/volume)on 11-14-2021 Hemoglobin (Bld) [Mass/Vol] 16.2 g/dL 13.0-16.5 [facility] Work Phone: Blood lymphocytes/100 leukoc yteson 11-14-2021 Lymphocytes/100 WBC (Bld) 21.3 % 19-41 [facility] Work Phone: Blood monocytes/100 leukocyt eson 11-14-2021 Monocytes/100 WBC (Bld) 11.1 % 0-10 [facility] Work Phone: Blood platelet mean volumeon 11-14-2021 Platelet mean volume (Bld) [Entitic vol] 10.2 fL 6.2-12.0 [facility] Work Phone: [phone] Determination of erythrocyte mean corpuscular volume (MCV)on 11-14-2021 MCV (RBC) [Entitic vol] 95.3 fL 80-94 [facility] Work Phone: Hematocrit Auto (Bld) [Volum e fraction]on 11-14-2021 Hematocrit (Bld) [Volume fraction] 46.2 % 40-54 [facility] Work Phone: Laboratory - Chemistry and C hemistry - challengeon 11-14-2021 ALP [Catalytic activity/Vol] 95 U/L 45-117 [facility] Work Phone: ALT [Catalytic activity/Vol] 44 U/L 16-61 [facility] Work Phone: CO2 [Moles/Vol] 29.0 mmol/L 21.0-32.0 [facility] Work Phone: Globulin (S) [Mass/Vol] 3.9 g/dL 2.2-4.2 [facility] Work Phone: Urea nitrogen/Creatinine [Mass ratio] 11.8 mg/mg 10-20 [facility] Work Phone: Laboratory - Hematology and Cell countson 11-14-2021 Erythrocyte distribution width (RBC) [Entitic vol] 45.1 fL 35.1-43.9 [facility] Work Phone: Erythrocyte distribution width (RBC) [Ratio] 13.1 % 11.6-14.6 [facility] Work Phone: Immature granulocytes/100 WBC (Bld) 0.500 % 0.0-0.9 [facility] Work Phone: Comment on above: IG% - Immature Granu locytes (promyelocytes, myelocytes and metamyelocytes) > 1% indicates that a LEFT SHIFT is Present. MCH (RBC) [Entitic mass] 33.4 pg 27.0-32.0 [facility] Work Phone: Nucleated RBC/100 WBC (Bld) [Ratio] 0 % 0-5 [facility] Work Phone: MCHC Auto (RBC) [Mass/Vol]on 11-14-2021 MCHC (RBC) [Mass/Vol] 35.1 g/dL 32-36 [facility] Work Phone: No Panel Informationon 11-14 Estimated GFR (MDRD) Amer 98 mL/min >60 [facility] Work Phone: Comment on above: GFR Calc Estimated GFR (MDRD) Non-Af Amer 81 mL/min >60 [facility] Work Phone: Comment on above: Non- GFR Calc Platelets bldon 11-14-2021 Platelets (Bld) [#/Vol] 272 10*3/uL 150-450 [facility] Work Phone: Serum or plasma albumin britni urement (mass/volume)on 11-14-2021 Albumin [Mass/Vol] 3.6 g/dL 3.2-5.0 [facility] Work Phone: Serum or plasma albumin/glob ulin mass ratioon 11-14-2021 Albumin/Globulin [Mass ratio] 0.9 {ratio} 0.9-2.4 [facility] Work Phone: Serum or plasma calcium britni urement (mass/volume)on 11-14-2021 Calcium [Mass/Vol] 8.9 mg/dL 8.5-10.1 [facility] Work Phone: Serum or plasma creatinine m easurement (mass/volume)on 11-14-2021 Creatinine [Mass/Vol] 1.02 mg/dL 0.70-1.30 [facility] Work Phone: Comment on above: The validity of the calculated GFR & GFRAA in patients over 70 years has not been determined. Clinical correlation is essential. Serum or plasma urea nitroge n measurement (mass/volume)on 11-14-2021 Urea nitrogen [Mass/Vol] 12 mg/dL 7-18 [facility] Work Phone: Thin prep Papanicolaou smear with manual screeningon 11-14-2021 Thin prep Papanicolaou smear with manual screening 24 U/L 15-37 [facility] Work Phone: Thin prep Papanicolaou smear with manual screening 5 5-15 [facility] Work Phone: XR CHEST 2 VIEWSon 2 XR CHEST 2 VIEWS ORIGINAL EXAMINATION: TWO XRAY VIEWS OF THE CHEST11/08/2021 4:37 pm XR Chest two views COMPARISON: None HISTORY: ORDERING SYSTEM PROVIDED HISTORY: Reason for Exam: pre op, preop evaluation for hip surgery, no additional history is given FINDINGS: No acute infiltrate, consolidation,mass, pneumothorax, pleural fluid, or vascular congestion is seen. Heart size and mediastinal contours are within normal limits for age and projection. No acute skeletal abnormality. Mild bibasilar hypoventilatory changes. Dorsal spondylosis. IMPRESSION: No acute cardiopulmonary process. RECOMMENDATIONS: Unavailable Interpreted by: Harshil Dwyer MD Preliminary Report By: Harshil Dwyer MD Electronically signed By Harshil Dwyer MD Dictated Date: 11/09/2021 1:34:26 PM Prelim Date: 11/09/2021 1:35:24 PM Sign Date: 11/09/2021 1:35:24 PM Ordering Provider: NEGRO Panchal [facility] ([place]) .Auto Diffon 11-08-2021 Basophil, Absolute 0.10 10 3/mcL Normal 0.00-0.19 [facility] ([place]) Comment on above: Performed By: #### C BC, ADIFF, ANEU, BMP, ALB, GFR #### [address] [address] Basophils/100 WBC (Bld) 0.6 % Normal 0.0-2.[address] [facility] ([place]) Comment on above: Performed By: #### C BC, ADIFF, ANEU, BMP, ALB, GFR #### [address] [address] Eosinophil, Absolute 0.60 10 3/mcL High 0.00-0.[address] [facility] ([place]) Comment on above: Performed By: #### C BC, ADIFF, ANEU, BMP, ALB, GFR #### [address] [address] Eosinophils/100 WBC (Bld) 6.1 % Normal 0.0-7.0 [facility] ([place]) Comment on above: Performed By: #### C BC, ADIFF, ANEU, BMP, ALB, GFR #### [address] [address] Lymphocyte, Absolute 1.80 10 3/mcL Normal 0.77-3.[address] [facility] ([place]) Comment on above: Performed By: #### C BC, ADIFF, ANEU, BMP, ALB, GFR #### [address] [address] Lymphocytes/100 WBC (Bld) 19.1 % Normal 10.0-50.0 [facility] ([place] Comment on above: Performed By: #### C BC, ADIFF, ANEU, BMP, ALB, GFR #### [address] [address] Monocyte, Absolute 1.40 10 3/mcL High 0.15-1.00 [facility] ([place]) Comment on above: Performed By: #### C BC, ADIFF, ANEU, BMP, ALB, GFR #### [address] [address] Monocytes/100 WBC (Bld) 14.4 % High 1.7-13.[address] [facility] ([place]) Comment on above: Performed By: #### C BC, ADIFF, ANEU, BMP, ALB, GFR #### [address] [address] Neutrophils/100 WBC (Bld) 59.8 % Normal 37.0-80.0 [facility] ([place]) Comment on above: Performed By: #### C BC, ADIFF, ANEU, BMP, ALB, GFR #### [address] [address] .GFRon 11-08-2021 GFR 93 ml/min/1.73sqm Normal [facility] ([place]) Comment on above: Result Comment: GFR Population mean for , Non- Americans Ages 20-29 = 116 mL/min/1.73 sq.m. Ages 30-39 = 107 mL/min/1.73 sq.m. Ages 40-49 = 99 mL/min/1.73 sq.m. Ages 50-59 = 93 mL/min/1.73 sq.m. Ages 60-69 = 85 mL/min/1.73 sq.m. Ages 70+ = 75 mL/min/1.73 sq.m. Chronic Kidney Disease: Less than 60 mL/min/1.73 square meters End Stage Renal Disease: Less than 15 mL/min/1.73 square meters Performed By: #### C BC, ADIFF, ANEU, BMP, ALB, GFR #### [address] [address] GFR Non- 76 ml/min/1.73sqm Normal [facility] ([place]) Comment on above: Result Comment: GFR Population mean for , Non- Americans Ages 20-29 = 116 mL/min/1.73 sq.m. Ages 30-39 = 107 mL/min/1.73 sq.m. Ages 40-49 = 99 mL/min/1.73 sq.m. Ages 50-59 = 93 mL/min/1.73 sq.m. Ages 60-69 = 85 mL/min/1.73 sq.m. Ages 70+ = 75 mL/min/1.73 sq.m. Chronic Kidney Disease: Less than 60 mL/min/1.73 square meters End Stage Renal Disease: Less than 15 mL/min/1.73 square meters Performed By: #### C BC, ADIFF, ANEU, BMP, ALB, GFR #### [address] [address] .NEUABSon 11-08-2021 Neutrophil, Absolute 5.60 10 3/mcL Normal 2.85-6.[address] [facility] ([place]) Comment on above: Performed By: #### C BC, ADIFF, ANEU, BMP, ALB, GFR #### [address] [address] ALBon 11-08-2021 Albumin Level 3.9 G/dL Normal 3.5-5.0 [facility] ([place]) Comment on above: Performed By: #### C BC, ADIFF, ANEU, BMP, ALB, GFR #### [address] [address] BMPon 11-08-2021 BUN/Creatinine Ratio 15 ratio Normal 7-27 [facility] ([place]) Comment on above: Performed By: #### C BC, ADIFF, ANEU, BMP, ALB, GFR #### [address] [address] Calcium [Mass/Vol] 8.9 mg/dL Normal 8.4-10.2 [facility] ([place]) Comment on above: Performed By: #### C BC, ADIFF, ANEU, BMP, ALB, GFR #### [place] [id number] Chloride [Moles/Vol] 106 mmol/L Normal 98-107 [facility] ([place]) Comment on above: Performed By: #### C BC, ADIFF, ANEU, BMP, ALB, GFR #### [place] [address] CO2 [Moles/Vol] 27 mmol/L Normal 22-29 [facility] ([place] Comment on above: Performed By: #### C BC, ADIFF, ANEU, BMP, ALB, GFR #### [address] [address] Creatinine [Mass/Vol] 1.02 mg/dL Normal 0.70-1.30 [facility] ([place]) Comment on above: Performed By: #### C BC, ADIFF, ANEU, BMP, ALB, GFR #### [address] [address] Electrolyte Balance 8.0 mEq/L Normal 4.0-15.0 [facility] ([place]) Comment on above: Performed By: #### C BC, ADIFF, ANEU, BMP, ALB, GFR #### [address] [address] Glucose [Mass/Vol] 88 mg/dL Normal 70-105 [facility] ([place]) Comment on above: Performed By: #### C BC, ADIFF, ANEU, BMP, ALB, GFR #### [address] [address] Potassium [Moles/Vol] 4.4 mmol/L Normal 3.5-5.1 [facility] ([place]) Comment on above: Performed By: #### C BC, ADIFF, ANEU, BMP, ALB, GFR #### [address] [address] Sodium [Moles/Vol] 141 mmol/L Normal 136-145 [facility] ([place]) Comment on above: Performed By: #### C BC, ADIFF, ANEU, BMP, ALB, GFR #### [address] [address] Urea nitrogen [Mass/Vol] 15 mg/dL Normal 7-18 [facility] ([place]) Comment on above: Performed By: #### C BC, ADIFF, ANEU, BMP, ALB, GFR #### [address] [address] CBCon 11-08-2021 Erythrocyte distribution width (RBC) [Ratio] 13.7 % Normal 11.5-14.5 [facility] ([place]) Comment on above: Performed By: #### C BC, ADIFF, ANEU, BMP, ALB, GFR #### [place] [address] Hematocrit (Bld) [Volume fraction] 46.1 % Normal 42.0-52.0 [facility] ([place] Comment on above: Performed By: #### C BC, ADIFF, ANEU, BMP, ALB, GFR #### [address] [address] Hgb 15.7 G/dL Normal 14.0-18.0 [facility] ([place]) Comment on above: Performed By: #### C BC, ADIFF, ANEU, BMP, ALB, GFR #### [address] [address] MCH (RBC) [Entitic mass] 32.2 pg High 27.0-31.2 [facility] ([place]) Comment on above: Performed By: #### C BC, ADIFF, ANEU, BMP, ALB, GFR #### [address] [address] MCHC 33.9 G/dL Normal 31.8-35.4 [facility] ([place] Comment on above: Performed By: #### C BC, ADIFF, ANEU, BMP, ALB, GFR #### [address] [address] MCV (RBC) [Entitic vol] 94.9 fL High 80.0-94.[address] [facility] ([place]) Comment on above: Performed By: #### C BC, ADIFF, ANEU, BMP, ALB, GFR #### [address] [address] Platelet 260 10 3/mcL Normal 130-400 [facility] ([place]) Comment on above: Performed By: #### C BC, ADIFF, ANEU, BMP, ALB, GFR #### [place] [id number] Platelet mean volume (Bld) [Entitic vol] 8.1 fL Normal 7.4-10.4 [facility] ([place] Comment on above: Performed By: #### C BC, ADIFF, ANEU, BMP, ALB, GFR #### [place] [id number] RBC 4.86 10 6/mcL Normal 4.04-6.13 [facility] ([place]) Comment on above: Performed By: #### C BC, ADIFF, ANEU, BMP, ALB, GFR #### [address] [address] WBC 9.40 10 3/mcL Normal 4.60-10.80 [facility] ([place]) Comment on above: Performed By: #### C BC, ADIFF, ANEU, BMP, ALB, GFR #### [address] [address] LABORATORYOrdered By: Fracisco Prather on 11-08-2021 Albumin BCP dye [Mass/Vol] 3.9 G/dL Invalid Interpretation Code 3.5 - 5.0 G/dL AO ADM SS Calcium [Mass/Vol] 8.9 mg/dL Invalid Interpretation Code 8.4 - 10.2 mg/dL AO ADM SS Chloride [Moles/Vol] 106 mmol/L Invalid Interpretation Code 98 - 107 mmol/L AO ADM SS CO2 [Moles/Vol] 27 mmol/L Invalid Interpretation Code 22 - 29 mmol/L AO ADM SS Creatinine [Mass/Vol] 1.02 mg/dL Invalid Interpretation Code 0.70 - 1.30 mg/dL AO ADM SS Electrolyte Balance 8.0 mEq/L Invalid Interpretation Code 4.0 - 15.0 mEq/L AO ADM SS Glucose [Mass/Vol] 88 mg/dL Invalid Interpretation Code 70 - 105 mg/dL AO ADM SS Potassium [Moles/Vol] 4.4 mmol/L Invalid Interpretation Code 3.5 - 5.1 mmol/L AO ADM SS Sodium [Moles/Vol] 141 mmol/L Invalid Interpretation Code 136 - 145 mmol/L AO ADM SS Urea nitrogen [Mass/Vol] 15 mg/dL Invalid Interpretation Code 7 - 18 mg/dL AO ADM SS Urea nitrogen/Creatinine [Mass ratio] 15 ratio Invalid Interpretation Code 7 - 27 ratio AO ADM SS LABORATORYOrdered By: Ronen Comer on 11-08-2021 Basophil, Absolute 0.10 103/mcL Invalid Interpretation Code 0.00 - 0.19 10^3/mcL AO Auto Heme SS Basophils/100 WBC (Bld) 0.6 % Invalid Interpretation Code 0.0 - 2.5 % AO Auto Heme SS Eosinophil, Absolute 0.60 103/mcL Invalid Interpretation Code 0.00 - 0.40 10^3/mcL AO Auto Heme SS Eosinophils/100 WBC (Bld) 6.1 % Invalid Interpretation Code 0.0 - 7.0 % AO Auto Heme SS Erythrocyte distribution width (RBC) [Ratio] 13.7 % Invalid Interpretation Code 11.5 - 14.5 % AO Auto Heme SS Hematocrit (Bld) [Volume fraction] 46.1 % Invalid Interpretation Code 42.0 - 52.0 % AO Auto Heme SS Hemoglobin (Bld) [Mass/Vol] 15.7 G/dL Invalid Interpretation Code 14.0 - 18.0 G/dL AO Auto Heme SS Lymphocyte, Absolute 1.80 103/mcL Invalid Interpretation Code 0.77 - 3.85 10^3/mcL AO Auto Heme SS Lymphocytes/100 WBC (Bld) 19.1 % Invalid Interpretation Code 10.0 - 50.0 % AO Auto Heme SS MCH (RBC) [Entitic mass] 32.2 pg Invalid Interpretation Code 27.0 - 31.2 pg AO Auto Heme SS MCHC (RBC) [Mass/Vol] 33.9 G/dL Invalid Interpretation Code 31.8 - 35.4 G/dL AO Auto Heme SS MCV (RBC) [Entitic vol] 94.9 fL Invalid Interpretation Code 80.0 - 94.0 fL AO Auto Heme SS Monocyte, Absolute 1.40 103/mcL Invalid Interpretation Code 0.15 - 1.00 10^3/mcL AO Auto Heme SS Monocytes/100 WBC (Bld) 14.4 % Invalid Interpretation Code 1.7 - 13.0 % AO Auto Heme SS Neutrophil, Absolute 5.60 103/mcL Invalid Interpretation Code 2.85 - 6.16 10^3/mcL AO Auto Heme SS Neutrophils/100 WBC (Bld) 59.8 % Invalid Interpretation Code 37.0 - 80.0 % AO Auto Heme SS Platelet mean volume (Bld) [Entitic vol] 8.1 fL Invalid Interpretation Code 7.4 - 10.4 fL AO Auto Heme SS Platelets (Bld) [#/Vol] 260 103/mcL Invalid Interpretation Code 130 - 400 10^3/mcL AO Auto Heme SS RBC (Bld) [#/Vol] 4.86 106/mcL Invalid Interpretation Code 4.04 - 6.13 10^6/mcL AO Auto Heme SS WBC (Bld) [#/Vol] 9.40 103/mcL Invalid Interpretation Code 4.60 - 10.80 10^3/mcL AO Auto Heme SS LABORATORYOrdered By: SYSTEM SYSTEM on 11-08-2021 GFR 93 ml/min/1.73sqm Invalid Interpretation Code AO Chemistry S GFR Non- 76 ml/min/1.73sqm Inval id Interpretation Code AO Chemistry S Vital Signs Date Time Vital Sign Value Performing Clinician Facility 06-17-2025 18:04-0400 Body temperature 98.5 [degF] Dr. Kaden Diamond MD Work Phone: [facility] 06-17-2025 18:04-0400 Diastolic blood pressure 84 mm[Hg] Dr. Kaden Diamond MD Work Phone: [facility] 06-17-2025 18:04-0400 Heart rate 75 /min Dr. Kaden Diamond MD Work Phone: [facility] 06-17-2025 18:04-0400 Respiratory rate 18 /min Dr. Kaden Diamond MD Work Phone: [facility] 06-17-2025 18:04-0400 SaO2% (BldA) [Mass fraction] 95 % Dr. Kaden Diamond MD Work Phone: [facility] 06-17-2025 18:04-0400 Systolic blood pressure 132 mm[Hg] Dr. Kaden Diamond MD Work Phone: [facility] 06-17-2025 17:24-0400 Body height 175.[address] Kaden Diamond MD Work Phone: [facility] 06-17-2025 17:24-0400 Body mass index (BMI) [Ratio] 29.7 kg/m2 Dr. Kaden Diamond MD Work Phone: [facility] 06-17-2025 17:24-0400 Body weight 91.[address] Kaden Diamond MD Work Phone: [facility] 06-14-2025 15:16-0400 Body height 175.3 cm Karl Nolasco MD Work Phone: [facility] 06-14-2025 15:16-0400 Body mass index (BMI) [Ratio] 28.65 kg/m2 Karl Nolasco MD Work Phone: [facility] 06-14-2025 15:16-0400 Body weight 88 kg Karl Nolasco MD Work Phone: [facility] 06-14-2025 15:16-0400 Diastolic blood pressure 79 mm[Hg] Karl Nolasco MD Work Phone: [facility] 06-14-2025 15:16-0400 Heart rate 61 /min Karl Nolasco MD Work Phone: [facility] 06-14-2025 15:16-0400 Systolic blood pressure 126 mm[Hg] Karl Nolasco MD Work Phone: [facility] 05-16-2025 14:45-0400 Body height 175.3 cm Charissa Corley PA-C Work Phone: [facility] 05-16-2025 14:45-0400 Body mass index (BMI) [Ratio] 28.65 kg/m2 Charissa Mitchellal PA-C Work Phone: [facility] 05-16-2025 14:45-0400 Body weight 88 kg Charissa Mitchellal PA-C Work Phone: [facility] 05-09-2025 14:33-0400 Body height 175.3 cm Charissa Mitchellal PA-C Work Phone: [facility] 05-09-2025 14:33-0400 Body mass index (BMI) [Ratio] 28.65 kg/m2 Charissa Kendallreal PA-C Work Phone: [facility] 05-09-2025 14:33-0400 Body weight 88 kg Charissa Mitchellal PA-C Work Phone: [facility] 05-02-2025 10:30-0400 Body temperature 97.2 [degF] Karl Nolasco MD Work Phone: [facility] 05-02-2025 10:30-0400 Diastolic blood pressure 70 mm[Hg] Karl Nolasco MD Work Phone: [facility] 05-02-2025 10:30-0400 Heart rate 68 /min Karl Nolasco MD Work Phone: [facility] 05-02-2025 10:30-0400 Respiratory rate 24 /min Karl Nolasco MD Work Phone: [facility] 05-02-2025 10:30-0400 SaO2% (BldA) [Mass fraction] 93 % Karl Nolasco MD Work Phone: [facility] 05-02-2025 10:30-0400 Systolic blood pressure 113 mm[Hg] Karl Nolasco MD Work Phone: [facility] 05-02-2025 06:33-0400 Body mass index (BMI) [Ratio] 28.65 kg/m2 Karl Nolasco MD Work Phone: [facility] 05-02-2025 06:33-0400 Body weight 88 kg Karl Nolasco MD Work Phone: [facility] 06-24-2024 11:16-0400 Body height 175.3 cm Kaden Diamond MD Work Phone: [facility] 06-24-2024 11:16-0400 Body mass index (BMI) [Ratio] 28.62 kg/m2 Kaden Diamond MD Work Phone: [facility] 06-24-2024 11:16-0400 Body temperature 98.1 [degF] Kaden Diamond MD Work Phone: [facility] 06-24-2024 11:16-0400 Body weight 87.9 kg Kaden Diamond MD Work Phone: [facility] 06-24-2024 11:16-0400 Diastolic blood pressure 72 mm[Hg] Kaden Diamond MD Work Phone: [facility] 06-24-2024 11:16-0400 Heart rate 70 /min Kaden Diamond MD Work Phone: [facility] 06-24-2024 11:16-0400 Respiratory rate 12 /min Kaden Diamond MD Work Phone: [facility] 06-24-2024 11:16-0400 SaO2% (BldA) [Mass fraction] 97 % Kaden Diamond MD Work Phone: [facility] 06-24-2024 11:16-0400 Systolic blood pressure 130 mm[Hg] Kaden Diamond MD Work Phone: [facility] 05-16-2024 19:01-0400 Body temperature 98.01 [degF] Kaden Diamond MD Work Phone: [facility] 05-16-2024 19:01-0400 Body weight 84 kg Kaden Diamond MD Work Phone: [facility] 05-16-2024 19:01-0400 Diastolic blood pressure 68 mm[Hg] Kaden Diamond MD Work Phone: [facility] 05-16-2024 19:01-0400 Heart rate 68 /min Kaden Diamond MD Work Phone: [facility] 05-16-2024 19:01-0400 Respiratory rate 16 /min Kaden Diamond MD Work Phone: [facility] 05-16-2024 19:01-0400 Systolic blood pressure 98 mm[Hg] Kaden Diamond MD Work Phone: [facility] 05-09-2024 14:11-0400 Body height 177.8 cm Karl Nolasco MD Work Phone: [facility] 05-09-2024 14:11-0400 Body mass index (BMI) [Ratio] 26.83 kg/m2 Karl Nolasco MD Work Phone: [facility] 05-09-2024 14:11-0400 Body weight 84.82 kg Karl Nolasco MD Work Phone: [facility] 05-09-2024 14:11-0400 Diastolic blood pressure 70 mm[Hg] Karl Nolasco MD Work Phone: [facility] 05-09-2024 14:11-0400 Systolic blood pressure 110 mm[Hg] Karl Nolasco MD Work Phone: [facility] 04-12-2024 14:35-0400 Body temperature 98.6 [degF] Kaden Diamond MD Work Phone: [facility] 04-12-2024 14:35-0400 Body weight 87.45 kg Kaden Diamond MD Work Phone: [facility] 04-12-2024 14:35-0400 Diastolic blood pressure 72 mm[Hg] Kaden Diamond MD Work Phone: [facility] 04-12-2024 14:35-0400 Heart rate 68 /min Kaden Diamond MD Work Phone: [facility] 04-12-2024 14:35-0400 Respiratory rate 16 /min Kaden Diamond MD Work Phone: [facility] 04-12-2024 14:35-0400 Systolic blood pressure 104 mm[Hg] Kaden Diamond MD Work Phone: [facility] 12-10-2023 10:56-0400 Body height 175.[address] Kaden Diamond Work Phone: [facility] 12-10-2023 10:56-0400 Body mass index (BMI) [Ratio] 26.6 kg/m2 Dr. Kaden Diamond Work Phone: 1(313)934-901035 [place] [address] 12-10-2023 10:56-0400 Body temperature 97.8 [degF] Dr. Kaden Diamond Work Phone: 1(538)[phone] [place] [address] 12-10-2023 10:56-0400 Body weight 81.[address] Kaden Diamond Work Phone: 1(863)[phone] [place] [address] 12-10-2023 10:56-0400 Heart rate 75 /min Dr. Kaden Diamond Work Phone: 8(180)533-228794 [place] [address] 12-10-2023 10:56-0400 Respiratory rate 16 /min Dr. Kaden Diamond Work Phone: 4(801)[phone] [place] [address] 12-10-2023 10:56-0400 SaO2% (BldA) [Mass fraction] 98 % Dr. Kaden Diamond Work Phone: [facility] 07-03-2023 12:00-0400 Body temperature 98.6 [degF] Dr. Kaden Diamond Work Phone: 0(457)312-620294 [place] [address] 07-03-2023 12:00-0400 Diastolic blood pressure 89 mm[Hg] Dr. Kaden Diamond Work Phone: 3(896)[phone] [place] [address] 07-03-2023 12:00-0400 Heart rate 60 /min Dr. Kaden Diamond Work Phone: 5(886)[phone] [place] [address] 07-03-2023 12:00-0400 Respiratory rate 16 /min Dr. Kaden Diamond Work Phone: [facility] 07-03-2023 12:00-0400 SaO2% (BldA) [Mass fraction] 94 % Dr. Kaden Diamond Work Phone: [facility] 07-03-2023 12:00-0400 Systolic blood pressure 139 mm[Hg] Dr. Kaden Diamond Work Phone: [facility] 12-15-2022 19:18-0400 Body temperature 97.3 [degF] Kaden Diamond MD Work Phone: [facility] 12-15-2022 19:18-0400 Body weight 91.17 kg Kaden Diamond MD Work Phone: [facility] 12-15-2022 19:18-0400 Diastolic blood pressure 70 mm[Hg] Kaden Diamond MD Work Phone: [facility] 12-15-2022 19:18-0400 Heart rate 56 /min Kaden Diamond MD Work Phone: [facility] 12-15-2022 19:18-0400 Respiratory rate 16 /min Kaden Diamond MD Work Phone: [facility] 12-15-2022 19:18-0400 Systolic blood pressure 116 mm[Hg] Kaden Diamond MD Work Phone: [facility] 11-24-2022 10:52-0500 Body temperature 98.2 [degF] Dr. Kaden Diamond Work Phone: [facility] 11-24-2022 10:52-0500 Diastolic blood pressure 78 mm[Hg] Dr. Kaden Diamond Work Phone: [facility] 11-24-2022 10:52-0500 Heart rate 67 /min Dr. Kaden Diamond Work Phone: [facility] 11-24-2022 10:52-0500 Respiratory rate 16 /min Dr. Kaden Diamond Work Phone: 7(650)146-186894 [place] [address] 11-24-2022 10:52-0500 SaO2% (BldA) [Mass fraction] 97 % Dr. Kaden Diamond Work Phone: 4(673)640-883994 [place] [address] 11-24-2022 10:52-0500 Systolic blood pressure 116 mm[Hg] Dr. Kaden Diamond Work Phone: 6(425)938-990835 [place] [address] 11-12-2022 10:56-0500 Body temperature 98.1 [degF] Dr. Kaden Diamond Work Phone: 8(514)955-643135 [place] [address] 11-12-2022 10:56-0500 Diastolic blood pressure 82 mm[Hg] Dr. Kaden Diamond Work Phone: 9(250)928-631935 [place] [address] 11-12-2022 10:56-0500 Heart rate 70 /min Dr. Kaden Diamond Work Phone: 1(553)761-508335 [place] [address] 11-12-2022 10:56-0500 Respiratory rate 14 /min Dr. Kaden Diamond Work Phone: 8(236)195-141635 [place] [address] 11-12-2022 10:56-0500 Systolic blood pressure 122 mm[Hg] Dr. Kaden Diamond Work Phone: 8(788)910-161035 [place] [address] 10-29-2022 11:10-0500 Body temperature 98 [degF] Dr. Kaden Diamond Work Phone: 9(616)967-983735 [place] [address] 10-29-2022 11:10-0500 Diastolic blood pressure 78 mm[Hg] Dr. Kaden Diamond Work Phone: 1(372)835-363035 [place] [address] 10-29-2022 11:10-0500 Heart rate 73 /min Dr. Kaden Diamond Work Phone: 5(673)108-345035 [place] [address] 10-29-2022 11:10-0500 Respiratory rate 14 /min Dr. Kaden Diamond Work Phone: 5(101)260-855435 [place] [address] 10-29-2022 11:10-0500 SaO2% (BldA) [Mass fraction] 98 % Dr. Kaden Diamond Work Phone: 0(236)667-143194 [place] [address] 10-29-2022 11:10-0500 Systolic blood pressure 128 mm[Hg] Dr. Kaden Diamond Work Phone: 1(967)867-465135 [place] [address] 10-22-2022 09:51-0500 Body temperature 98.1 [degF] Dr. Kaden Diamond Work Phone: 8(771)442-142835 [place] [address] 10-22-2022 09:51-0500 Diastolic blood pressure 76 mm[Hg] Dr. Kaden Diamond Work Phone: 7(978)778-269235 [place] [address] 10-22-2022 09:51-0500 Heart rate 79 /min Dr. Kaden Diamond Work Phone: 8(336)128-536435 [place] [address] 10-22-2022 09:51-0500 Respiratory rate 14 /min Dr. Kaden Diamond Work Phone: 9(104)560-171235 [place] [address] 10-22-2022 09:51-0500 SaO2% (BldA) [Mass fraction] 97 % Dr. Kaden Diamond Work Phone: 9(464)581-662035 [place] [address] 10-22-2022 09:51-0500 Systolic blood pressure 138 mm[Hg] Dr. Kaden Diamond Work Phone: 6(361)433-599535 [place] [address] 10-13-2022 17:59-0500 Body height 175.[address] Kaden Diamond Work Phone: 0(487)723-172535 [place] [address] 10-13-2022 17:59-0500 Body mass index (BMI) [Ratio] 28.3 kg/m2 Dr. Kaden Diamond Work Phone: 0(912)675-114735 [place] [address] 10-13-2022 17:59-0500 Body temperature 97 [degF] Dr. Kaden Diamond Work Phone: 8(459)046-171635 [place] [address] 10-13-2022 17:59-0500 Body weight 87.[address] Kaden Diamond Work Phone: 6(362)277-561535 [place] [address] 10-13-2022 17:59-0500 Diastolic blood pressure 77 mm[Hg] Dr. Kaden Diamond Work Phone: 7(954)493-320994 [place] [address] 10-13-2022 17:59-0500 Heart rate 84 /min Dr. Kaden Diamond Work Phone: 7(633)959-778435 [place] [address] 10-13-2022 17:59-0500 Respiratory rate 18 /min Dr. Kaden Diamond Work Phone: 2(709)914-616535 [place] [address] 10-13-2022 17:59-0500 SaO2% (BldA) [Mass fraction] 95 % Dr. Kaden Diamond Work Phone: 9(700)257-050835 [place] [address] 10-13-2022 17:59-0500 Systolic blood pressure 130 mm[Hg] Dr. Kaden Diamond Work Phone: 6(192)716-125035 [place] [address] 08-28-2022 14:42-0500 Body temperature 98 [degF] Dr. Kaden Diamond Work Phone: 0(840)091-576435 [place] [address] 08-28-2022 14:42-0500 Diastolic blood pressure 80 mm[Hg] Dr. Kaden Diamond Work Phone: 1(222)040-592935 [place] [address] 08-28-2022 14:42-0500 Heart rate 81 /min Dr. Kaden Diamond Work Phone: 2(959)366-031335 [place] [address] 08-28-2022 14:42-0500 Respiratory rate 16 /min Dr. Kaden Diamond Work Phone: 4(633)371-995835 [place] [address] 08-28-2022 14:42-0500 SaO2% (BldA) [Mass fraction] 97 % Dr. Kaden Diamond Work Phone: 3(907)941-964035 [place] [address] 08-28-2022 14:42-0500 Systolic blood pressure 138 mm[Hg] Dr. Kaden Diamond Work Phone: 2(763)100-498094 [place] [address] 06-11-2022 13:33-0400 Body temperature 97.5 [degF] Jessica Vegas APRN.CNP Work Phone: 7(744)765-766527 [place] [address] 06-11-2022 13:33-0400 Body weight 86.18 kg Jessica Older CRT.PUBLICATIONS DESIGNER Work Phone: [facility] 06-11-2022 13:33-0400 Diastolic blood pressure 78 mm[Hg] Jessica Older CRT.PUBLICATIONS DESIGNER Work Phone: [facility] 06-11-2022 13:33-0400 Heart rate 64 /min Jessica Older CRT.PUBLICATIONS DESIGNER Work Phone: [facility] 06-11-2022 13:33-0400 Respiratory rate 12 /min Jessica Older CRT.PUBLICATIONS DESIGNER Work Phone: [facility] 06-11-2022 13:33-0400 Systolic blood pressure 116 mm[Hg] Jessica Older CRT.PUBLICATIONS DESIGNER Work Phone: [facility] Encounters Encounter Date Encounter Type Care Provider Facility Start: 06-29-[address] Facility:[facility] Start: 06-17-2025 End: 06-17-2025 Emergency department patient visit Dr. Travis Pike DO -Emergency Department Work Phone: Start: 06-15-[address] Angelica Diamond MD Work Phone: -Occupational Therapy Work Phone: Start: 06-14-2025 End: 06-14-2025 Postop follow up visit related to original px Karl Nolasco MD Work Phone: [facility] Comment on above: Traumatic rupture of radial collateral ligament (Primary Dx); S/P ligament repair Start: 06-14-2025 End: 06-14-2025 ambulatory KARL NOLASCO [facility] Start: 05-26-2025 End: 05-26-[address] Kaden Diamond MD Work Phone: [facility] Start: 05-26-2025 End: 05-26-[address] Catherine Preciado MD -[facility] Work Phone: Start: 05-26-2025 End: 05-26-2025 ambulatory Kaden Diamond Facility:[facility] Start: 05-16-2025 End: 05-16-2025 Postop follow up visit related to original px Charissa Mitchelldanisha SOLARES-Robert Work Phone: [facility] Comment on above: Traumatic rupture of radial collateral ligament (Primary Dx); S/P ligament repair Start: 05-16-2025 End: 05-16-2025 ambulatory CHARISSA CORLEY [facility] Start: 05-09-2025 End: 05-09-2025 Postop follow up visit related to original px Charissa Mitchelldanisha SOLARES-C Work Phone: [facility] Comment on above: Traumatic rupture of radial collateral ligament (Primary Dx); S/P ligament repair Start: 05-09-2025 End: 05-09-2025 ambulatory Karl Nolasco MD Work Phone: [facility] [employer] [facility] Comment on above: Traumatic rupture of radial collateral ligament Start: 05-02-2025 End: 05-02-2025 Anesthesia consultation No Anesthesiologist - Lucinda/Brian BARROSO Work Phone: [facility] Start: 05-02-2025 End: 05-02-2025 ambulatory KARL NOLASCO [facility] Start: 05-02-2025 End: 05-02-2025 Subsequent hospital visit by physician Karl Nolasco MD Work Phone: [facility] Comment on above: S/P ligament repair (Primary Dx) Start: 04-18-2025 End: 04-18-2025 ambulatory KADEN DIAMOND [facility] Start: 03-27-2025 End: 03-27-[address] Kaden Diamond MD Work Phone: [facility] Start: 03-27-2025 End: 03-27-[address] Catherine Preciado MD -[facility] Work Phone: Start: 03-27-2025 End: 03-27-2025 ambulatory Kaden Diamond Facility:[facility] Start: 12-29-2024 End: 12-29-[address] Kaden Diamond MD Work Phone: [facility] Work Phone: Start: 12-29-2024 End: 12-29-[address] Catherine Preciado MD -[facility] Work Phone: Start: 12-29-2024 End: 12-29-2024 ambulatory Kaden Diamond Facility:[facility] Start: 10-05-2024 End: 10-05-[address] Catherine Preciado MD -[facility] Work Phone: Start: 10-05-2024 End: 10-05-2024 ambulatory Catherine Preciado Facility:[facility] Start: 07-26-2024 End: 07-26-2024 ambulatory Bridger Justice PA-C Work Phone: [facility] Orthopedics [facility] Sports [facility] Start: 07-26-2024 End: 08-09-2024 Telephone encounter Karl Nolasco MD Work Phone: [facility] Comment on above: Surgery Scheduling ( 11/01 @ 8am [facility] (pt choice for date)) Surgery Scheduling ( 05/02 @ 8am [facility] (pt choice for date)) Start: 07-15-2024 End: 07-15-2024 ambulatory Kaden Diamond Facility:[facility] Start: 06-27-2024 End: 06-30-2024 Telephone encounter Kaden Diamond MD Work Phone: [facility] [place] Comment on above: Patient Update; Jess ent Question Start: 06-24-2024 End: 06-24-2024 ambulatory KADEN DIAMOND Facility:[facility] Start: 06-24-2024 End: 06-24-2024 Patient encounter procedure Kaden Diamond MD Work Phone: [facility] [place] Comment on above: Routine medical exam (Primary Dx); Need for influenza vaccination; Screening for depression; Encounter for screening examination for other mental health and behavioral disorders; Clostridium difficile colitis; Psoriatic arthritis (HCC); Mild intermittent asthma with acute exacerbation; Need for vaccination Start: 06-24-2024 End: 06-24-2024 Patient encounter status Kaden Diamond MD Work Phone: [facility] Start: 06-07-2024 End: 06-07-2024 Telephone encounter Kaden Diamond MD Work Phone: [facility] [place] Comment on above: Patient Update Start: 05-27-2024 End: 05-27-2024 ambulatory KADEN DIAMOND Facility:[facility] Start: 05-27-2024 End: 05-27-2024 Subsequent hospital visit by physician Ct Prep [facility] Comment on above: Abdominal pain, lowe r [R10.30] Start: 05-21-2024 End: 05-21-2024 Telephone encounter Kaden Diamond MD Work Phone: [facility] [place] Comment on above: Results Start: 05-20-2024 End: 05-20-2024 Orders Only Kaden Diamond MD Work Phone: [facility] [place] Comment on above: Clostridium difficil e colitis (Primary Dx) Start: 05-18-2024 End: 05-18-2024 Orders Only Kaden Diamond MD Work Phone: [facility] [place] Comment on above: Abdominal pain, lowe r (Primary Dx); Diarrhea, unspecified type Start: 05-17-2024 End: 05-17-2024 ambulatory KADEN DIAMOND Facility:[facility] Start: 05-16-2024 End: 05-16-2024 ambulatory KADEN DIAMOND Facility:[facility] Start: 05-16-2024 End: 05-16-2024 Patient encounter procedure Kaden Diamond MD Work Phone: [facility] [place] Comment on above: Diarrhea, unspecifie d type (Primary Dx); Abdominal pain, lower; Urinary hesitancy Start: 05-09-2024 End: 05-09-2024 Office outpatient new 30 minutes Karl Nolasco MD Work Phone: [facility] Comment on above: Traumatic rupture of radial collateral ligament Start: 04-12-2024 End: 04-12-2024 ambulatory KADEN DIAMOND Facility:[facility] Start: 04-12-2024 End: 04-12-2024 Patient encounter procedure Kaden Diamond MD Work Phone: [facility] [place] Comment on above: Visit for suture rem oval (Primary Dx); Laceration of right index finger without foreign body with damage to nail, subsequent encounter; Open nondisplaced fracture of distal phalanx of right index finger with routine healing, subsequent encounter; Psoriatic arthritis (HCC); Screening for lipid disorders Start: 12-10-2023 End: 12-10-[address] Kaden Diamond Work Phone: [facility] Work Phone: Start: 12-10-2023 End: 12-10-[address] Kaden Diamond Work Phone: [facility] Work Phone: Start: 11-06-2023 End: 11-06-2023 ambulatory [facility] Work Phone: Start: 11-06-2023 End: 11-06-2023 Patient encounter procedure [facility] Work Phone: Start: 08-07-2023 End: 08-07-[address] Kaden Diamond Work Phone: [facility] Work Phone: Start: 08-07-2023 End: 08-07-[address] Kaden Diamond Work Phone: [facility] Work Phone: Start: 07-03-2023 End: 07-03-[address] Kaden Diamond Work Phone: [facility] Work Phone: Start: 05-15-2023 End: 05-15-2023 ambulatory [facility] Work Phone: Start: 05-15-2023 End: 05-15-2023 Patient encounter procedure [facility] Work Phone: Start: 02-12-2023 End: 02-12-[address] Kaden Diamond Work Phone: [facility] Work Phone: Start: 02-12-2023 End: 02-12-[address] Kaden Diamond Work Phone: [facility] Start: 01-09-2023 End: 01-09-[address] Kaden Diamond Work Phone: [facility] Start: 12-15-2022 End: 12-15-2022 Patient encounter procedure Kaden Diamond MD Work Phone: [facility] [place] Comment on above: Rhinosinusitis (Prim saba Dx); Mild intermittent asthma with acute exacerbation Start: 11-24-2022 End: 11-24-[address] Kaden Diamond Work Phone: [facility] Start: 11-12-2022 End: 11-12-[address] Kaden Diamond Work Phone: [facility] Work Phone: Start: 11-12-2022 End: 11-12-[address] Kaden Diamond Work Phone: [facility] Start: 11-05-2022 End: 11-05-[address] Kaden Diamond Work Phone: [facility] Work Phone: Start: 11-05-2022 End: 11-05-[address] [facility] Start: 11-05-2022 End: 11-05-[address] Kaden Diamond Work Phone: [facility] Start: 10-29-2022 End: 10-29-[address] Kaden Diamond Work Phone: [facility] Start: 10-22-2022 End: 10-22-[address] Kaden Diamond Work Phone: [facility] Start: 10-13-2022 End: 10-13-2022 Emergency department patient visit Dr. Kaden Diamond Work Phone: [facility]-Emergency Department Start: 08-28-2022 End: 08-28-[address] Kaden Diamond Work Phone: [facility] Start: 08-19-2022 Non-patient / Non-visit Dr. Shameka Diamond Work Phone: [facility] Start: 08-19-2022 End: 08-19-[address] Kaden Diamond Work Phone: [facility] Work Phone: Start: 08-19-2022 End: 08-19-[address] Kaden Diamond Work Phone: [facility]Cardiov[facility] Start: 08-15-2022 End: 08-15-2022 ambulatory [facility] Work Phone: Start: 08-15-2022 End: 08-15-2022 Patient encounter procedure [facility] Start: 08-06-2022 End: 08-06-2022 ambulatory [facility] Work Phone: Start: 08-06-2022 End: 08-06-2022 Patient encounter procedure [facility] Start: 06-11-2022 End: 06-11-2022 Subsequent hospital visit by physician Daniele [facility] Work Phone: Radiology Comment on above: Rib pain on right si de [R07.81] Start: 06-11-2022 End: 06-11-2022 Patient encounter procedure Jessica Vegas APRN.CNP Work Phone: [facility] [place] Comment on above: Rib pain on right si de (Primary Dx); Chronic cough; Need for influenza vaccination Start: 05-16-2022 End: 05-16-2022 Patient encounter procedure [facility] Start: 04-11-2022 End: 04-11-2022 Patient encounter procedure [facility] Start: 02-21-2022 End: 02-21-2022 Patient encounter procedure [facility] Start: 11-14-2021 End: 11-14-2021 Patient encounter procedure [facility] Start: 11-08-2021 End: 11-08-2021 Patient encounter procedure NEGRO PHILIP PA-C [facility] Procedures Date Procedure Procedure Detail Performing Clinician Start: 05-02-2025 MN AN ELECTIVE SUPRAGLOTTIC AIRWAY Josie Williamson RN Start: 05-02-2025 Peripheral block anesthesia Edy Campbell APRN - SKATESMAN Work Phone: Start: 06-24-2024 Adult depression scr eening assessment Kaden Diamond MD Work Phone: Start: 05-27-2024 Ct abdomen & pelvis w/contrast material Kaden Diamond MD Work Phone: Start: 05-17-2024 Lipid 1996 panel - S ariel or Plasma Kaden Diamond MD Work Phone: Start: 05-16-2024 Urnls dip stick/tabl et rgnt auto w/o microscopy Kaden Diamond MD Work Phone: Start: 12-10-2023 Plain x-ray of hand Dr. Kaden Diamond Work Phone: Start: 01-09-[address] Kaden Diamond Work Phone: Start: 08-19-2022 CT of chest without contrast Dr. Kaden Diamond Work Phone: Start: 06-11-2022 Radex ribs uni w/posteroant ch minimum 3 views Jessica M Michelle CRT.PUBLICATIONS DESIGNER Work Phone: Start: 06-11-2022 INFLUENZA VACCINE QUADRIVALENT 6 MO - 64 YRS IM Jessica Older CRT.PUBLICATIONS DESIGNER Work Phone: Start: 11-23-2021 Adult depression scr eening assessment Jessica Older CRT.PUBLICATIONS DESIGNER Work Phone: Start: 04-23-2020 Colonoscopy Jessica Older CRT.PUBLICATIONS DESIGNER Work Phone: Start: 11-24-2019 Lipid 1996 panel - S ariel or Plasma Kaden Diamond MD Work Phone: Investigation of transfusion reaction Dr. Kaden Diamond Work Phone: Microbial culture, routine D flavio Diamond Work Phone: Plan of Treatment Date Care Activity Detail Author Start: 12-05-2042 RSV Immunization for Adults (1 - 1-dose 75+ series) RSV Immunization for Adults (1 - 1-dose 75+ series) [facility] Start: 04-05-2034 DTaP/Tdap/Td Vaccines (4 - Td or Tdap) DTaP/Tdap/Td Vaccines (4 - Td or Tdap) [facility] Start: 04-05-2034 Urine microalbumin profile DTaP,Tdap,Td Vaccine (4 - Td or Tdap) [facility] Start: 10-13-2032 Urine microalbumin profile DTAP,TDAP,TD (3 - Td or Tdap) [facility] Start: 05-17-2029 Lipid panel Lipid Screening [facility] Start: 05-17-2029 Prostate specific antigen measurement Prostate Cancer Screening Discussion [facility] Start: 2027 RSV Immunization aged 60 or older (1 - 1-dose 60+ series) RSV Immunization aged 60 or older (1 - 1-dose 60+ series) [facility] Start: 05-17-2027 Diabetes Screening Diabetes Screening [facility] Start: 06-24-2025 Annual PCP Team Chronic Disease Visit Annual PCP Team Chronic Disease Visit [facility] Start: 06-24-2025 Anxiety Screening Anxiety Screening [facility] Start: 06-24-2025 Depression Screening Depression Screening [facility] Start: 06-17-2025 [facility] Start: 06-17-2025 End: 06-17-2025 Emergency department patient visit Departed Emergency -Emergency Department Work Phone: Start: 06-15-2025 Registered Recurring Registered Recurring -Occupational Therapy Work Phone: Start: 06-14-2025 End: 06-14-2025 Patient encounter procedure 06/14/2025 3:10 PM EDT Office Visit [facility] [employer] [employer] [address] [place] [address] Karl Nolasco MD [address] [facility] [address] [place] [address] [facility] Start: 05-22-2025 COVID-19 Vaccine ( season) COVID-19 Vaccine ( season) [facility] Start: 05-22-2025 Influenza vaccination Influenza Vaccine (#1) [facility] Start: 05-16-2025 End: 05-16-2025 Patient encounter procedure 05/16/2025 2:30 PM EDT Office Visit [facility] [employer] [address] [place] [address] Charissa Corley PA-C [address] [facility] [address] [place] [address] [facility] Start: 05-16-2025 Annual PCP Team Chronic Disease Visit Annual PCP Team Chronic Disease Visit [facility] Start: 05-09-2025 End: 05-09-2025 ambulatory 05/09/2025 4:00 PM EDT [facility] [address] [place] [phone] Karl Nolasco MD [address] [facility] [address] [place] [address] Vikas Tran OT [facility] Start: 05-09-2025 End: 05-09-2025 Patient encounter procedure 05/09/2025 2:45 PM EDT Office Visit [facility] [address] [place] [phone] Charissa Corley PA-C [address] [facility] [address] [place], [place] [id number] [facility] Start: 05-08-2025 End: 05-08-2025 ambulatory [facility] Start: 05-08-2025 End: 05-08-2025 Patient encounter procedure 05/08/2025 11:00 AM EDT Office Visit [facility] Orthopedics and Sports Medicine - [place] [address] [facility] [address] [place] [id number] Bridger Justice PA-C [address] [facility] [address] [place] [address] [facility] Orthopedics [facility] Sports Medicine - [place] Start: 05-02-2025 End: 05-02-2025 Admission to same day surgery center [facility] Comment on above: LEFT INDEX FINGER METACARPOPHALANGEAL RA DIAL COLLATERAL LIGAMENT RECONSTRUCTION USING PALMARIS LONGUS AUTOGRAFT [98960 (CPT )] Start: 05-02-2025 End: 05-02-2025 Anesthesia consultation 05/02/2025 7:30 AM EDT Anesthesia Event [facility] [address] [place] [id number] Kavitha Kimble, CRT - SKATESMAN [address] [place] [address] [facility] Start: 05-02-2025 Subsequent hospital visit by physician [facility] Start: 05-02-2025 End: 05-02-2025 Rcnstj coltrl ligm mtcarphlngl 1 w/tdn/fscal grf [facility] Operating Room Start: 04-23-2025 Colonoscopy COLONOSCOPY [facility] Start: 04-23-2025 COLORECTAL CANCER SCREENING COLORECTAL CANCER SCREENING [facility] Start: 04-23-2025 Screening for malignant neoplasm of colon [facility] Start: 04-18-2025 End: 04-18-2025 Admission to establishment 04/18/2025 10:30 AM EDT Pre-Admission Testing [facility] Pre-Admit Testing [address] [place] [phone] [facility] Start: 04-12-2025 Annual PCP Team Chronic Disease Visit Annual PCP Team Chronic Disease Visit [facility] Start: 11-23-2024 Lipid panel Lipid Screening [facility] Start: 11-23-2024 LIPID SCREEN LIPID SCREEN [facility] Start: 11-23-2024 PROSTATE CANCER SCREENING DISCUSSION PROSTATE CANCER SCREENING DISCUSSION [facility] Start: 11-23-2024 Prostate specific antigen measurement Prostate Cancer Screening Discussion [facility] Start: 11-07-2024 End: 11-07-2024 ambulatory 11/07/2024 2:30 PM EST [facility] [address] [facility] [address] [place] [phone] Linda Reeves OT [facility] Start: 11-07-2024 End: 11-07-2024 Patient encounter procedure 11/07/2024 2:00 PM EST Office Visit [facility] Orthopedics and Sports Medicine - [place] [address] [facility] [address] [place] [phone] Bridger Justice PA-C [address] [facility] [address] [place] [address] [facility] Orthopedics and Sports Medicine [facility] Start: 11-01-2024 End: 11-01-2024 Admission to same day surgery center 11/01/2024 8:00 AM EST - 11/01/2024 10:00 AM EST Surgery [facility] [address] [place] [phone] Karl Nolasco MD 1 [facility] [address] [place], [place] [id number] LEFT INDEX FINGER METACARPOPHALANGEAL RADIAL COLLATERAL LIGAMENT RECONSTRUCTION USING PALMARIS LONGUS AUTOGRAFT [46347 (CPT )] [facility] Comment on above: LEFT INDEX FINGER METACARPOPHALANGEAL RA DIAL COLLATERAL LIGAMENT RECONSTRUCTION USING PALMARIS LONGUS AUTOGRAFT [88137 (CPT )] Start: 11-01-2024 End: 11-01-2024 Rcnstj coltrl ligm mtcarphlngl 1 w/tdn/fscal grf RECONSTRUCTION OF COLLATERAL LIGAMENT METACARPOPHALANGEAL JOINT WITH TENDON OR FASCIAL GRAFT Traumatic rupture of unspecified radial collateral ligament, initial encounter 11/01/2024 8:00 AM EST [facility] Operating Room Start: 11-01-2024 Subsequent hospital visit by physician 11/01/2024 8:00 AM EST Hospital Encounter [facility] [address] [place] [phone] Karl Nolasco MD 1 [facility] [address] [place], [place] [id number] [facility] Start: 10-14-2024 End: 10-14-2024 Admission to establishment 10/14/2024 10:00 AM EST Pre-Admission Testing [facility] Pre-Admit Testing [address] [place] [address] [facility] Pre-Admit Testing Start: 06-24-2024 End: 06-24-2024 Patient encounter procedure 06/24/2024 11:00 AM EDT Office Visit Internal Medicine [facility] [address] [place] [address] Kaden Diamond MD [address] [facility] [place] [address] Physical w/fasting lab prior [facility] Comment on above: Physical w/fasting lab prior Start: 05-27-2024 End: 05-27-2024 Patient encounter procedure Cat Scan Comment on above: Abdominal pain, lower [R10.30] Start: 05-24-2024 End: 08-23-2024 Basic metabolic 2000 panel - Serum or Plasma BASIC METABOLIC PANEL Lab Routine Psoriatic arthritis (HCC) Expected: 05/24/2024, Expires: 08/23/2024 [facility] Comment on above: Expected: 05/24/2024, Expires: 4 Start: 05-24-2024 End: 08-23-2024 CBC panel - Blood by Automated count COMPLETE BLOOD COUNT Lab Routine Psoriatic arthritis (HCC) Expected: 05/24/2024, Expires: 08/23/2024 [facility] Work Phone: Comment on above: Expected: 05/24/2024, Expires: 4 Start: 05-24-2024 End: 08-23-2024 Lipid 1996 panel - Serum or Plasma LIPID PANEL BASIC Lab Routine Screening for lipid disorders Expected: 05/24/2024, Expires: 08/23/2024 [facility] Comment on above: Expected: 05/24/2024, Expires: Start: 05-22-2024 Covid-19 Vaccine ( season) Covid-19 Vaccine ( season) [facility] Start: 05-22-2024 Covid-19 Vaccine ( season) Covid-19 Vaccine ( season) [facility] Start: 05-22-2024 [facility] Start: 05-17-2024 End: 08-16-2024 C reactive protein [Mass/volume] in Serum or Plasma C-REACTIVE PROTEIN Lab Routine Abdominal pain, lower Expected: 05/17/2024, Expires: 08/16/2024 [facility] Comment on above: Expected: 05/17/2024, Expires: 4 Start: 05-17-2024 End: 08-16-2024 Comprehensive metabolic 2000 panel - Serum or Plasma COMPREHENSIVE METABOLIC PANEL Lab Routine Diarrhea, unspecified type Abdominal pain, lower Expected: 05/17/2024, Expires: 08/16/2024 [facility] Comment on above: Expected: 05/17/2024, Expires: 4 Start: 05-17-2024 End: 08-16-2024 Erythrocyte sedimentation rate SEDIMENTATION RATE, WESTERGREN Lab Routine Abdominal pain, lower Expected: 05/17/2024, Expires: 08/16/2024 [facility] Comment on above: Expected: 05/17/2024, Expires: Start: 05-17-2024 End: 08-16-2024 PSA/PROSTATE SPECIFIC ANTIGEN SCREENING PSA/PROSTATE SPECIFIC ANTIGEN SCREENING Lab Routine Urinary hesitancy Expected: 05/17/2024, Expires: 08/16/2024 [facility] Work Phone: Comment on above: Expected: 05/17/2024, Expires: 4 Start: 12-16-2023 ANNUAL PCP TEAM CHRONIC DISEASE VISIT ANNUAL PCP TEAM CHRONIC DISEASE VISIT [facility] Start: 09-21-2023 Behavioral Health Screening Behavioral Health Screening [facility] Start: 06-11-2023 ANNUAL PCP TEAM CHRONIC DISEASE VISIT ANNUAL PCP TEAM CHRONIC DISEASE VISIT [facility] Start: 05-22-2023 Covid-19 Vaccine () Covid-19 Vaccine () [facility] Start: 05-12-2023 Urine microalbumin profile DTAP,TDAP,TD (2 - Td or Tdap) [facility] Start: 11-23-2022 Adult depression screening assessment DEPRESSION SCREENING [facility] Start: 10-13-2022 Smpl repair scalp/neck/ax/genit/trunk 2.6-7.5cm RPR S/N/AX/GEN/TRNK2.6-7.5CM [facility] Start: 09-29-2022 DIABETES SCREEN DIABETES SCREEN [facility] Start: 09-29-2022 Diabetes Screening Diabetes Screening [facility] Start: 09-21-2022 DEPRESSION ASSESSMENT DEPRESSION ASSESSMENT [facility] Start: 01-10-2022 COVID-19 VACCINE (5 - Booster for Moderna series) COVID-19 VACCINE (5 - Booster for Moderna series) [facility] Start: 11-06-2021 COVID-19 VACCINE (5 - Booster for Moderna series) COVID-19 VACCINE (5 - Booster for Moderna series) [facility] Start: 12-05-2017 Zoster Vaccines (1 of 2) Zoster Vaccines (1 of 2) [facility] Start: 12-05-2012 COLOGUARD (FIT-DNA) COLOGUARD (FIT-DNA) [facility] Start: 12-05-[address] COLONOGRAPHY [facility] Start: 12-05-2012 FECAL OCCULT BLOOD FECAL OCCULT BLOOD [facility] Start: 12-05-2012 Screening for malignant neoplasm of colon [facility] Start: 12-05-2012 SIGMOIDOSCOPY SIGMOIDOSCOPY [facility] Start: 12-05-1986 Hepatitis B Vaccine (1 of 3 - 19+ 3-dose series) Hepatitis B Vaccine (1 of 3 - 19+ 3-dose series) [facility] Start: 12-05-1986 Hepatitis B Vaccines (1 of 3 - 19+ 3-dose series) Hepatitis B Vaccines (1 of 3 - 19+ 3-dose series) [facility] Start: 12-05-1986 Pneumococcal Vaccine: 50+ Years (1 of 2 - PCV) Pneumococcal Vaccine: 50+ Years (1 of 2 - PCV) [facility] Start: 12-05-1986 SHINGRIX VACCINE (1 of 2) SHINGRIX VACCINE (1 of 2) [facility] Start: 12-05-1985 Anxiety Screening Anxiety Screening [facility] Start: 12-05-1985 Depression Screening Depression Screening [facility] Start: 12-05-1985 Diabetes mellitus screening Diabetes Screening [facility] Start: 12-05-1985 Hepatitis C screening Hepatitis C Screening [facility] Start: 12-05-1985 SPIROMETRY SPIROMETRY [facility] Start: 1979 Depression Screening Depression Screening [facility] Start: 12-05-1973 PNEUMOCOCCAL (1 - PCV) PNEUMOCOCCAL (1 - PCV) [facility] Start: 12-05-1973 Pneumococcal vaccination Pneumococcal Vaccine (1 of 2 - PCV) [facility] Start: 12-05-1973 Pneumococcal Vaccine: Pediatrics (0 to 5 Years) and At-Risk Patients (6 to 64 Years) (1 of 2 - PCV) Pneumococcal Vaccine: Pediatrics (0 to 5 Years) and At-Risk Patients (6 to 64 Years) (1 of 2 - PCV) [facility] Start: 12-05-1968 MMR Vaccines (1 of 1 - Standard series) MMR Vaccines (1 of 1 - Standard series) [facility] Start: 1967 HEPATITIS B (1 of 3 - 3-dose series) HEPATITIS B (1 of 3 - 3-dose series) [facility] Start: 1967 HIV screening HIV Screening [facility] Start: 1967 Lipid panel Lipid Panel [facility] Start: 1967 Screening for malignant neoplasm of colon [facility] Clostridioides diffi cile toxin genes [Presence] in Stool by ERIC with probe detection C. DIFFICILE PCR Lab Routine Diarrhea, unspecified type Ordered: 05/17/2024 [facility] Comment on above: Ordered: 05/17/2024 End: 06-17-2025 CT Abdomen and Pelvis W contrast IV CT ABD/PEL W IVCON Radiology Routine Abdominal pain, lower Diarrhea, unspecified type 1 Occurrences starting 05/18/2024 until 06/17/2025 [facility] Work Phone: Comment on above: 1 Occurrences starting 05/18/2024 until 06/17/2025 Patient Education ED Laceration Extremity [facility] Work Phone: Patient referral [facility] Work Phone: Immunizations Immunization Date Immunization Notes Care Provider [facility] 06-24-2024 influenza, seasonal, injectable Kaden Diamond MD Work Phone: [facility] 06-24-2024 pneumococcal conjuga te (PCV20) vaccine, 20 valent (PREVNAR 20) Kaden Diamond MD Work Phone: [facility] 06-24-2024 pneumococcal Conjugate, unspecified formulation Kaden Diamond MD Work Phone: [facility] Work Phone: 06-24-2024 influenza virus vaccine, unspecified formulation Karl Nolasco MD Work Phone: [facility] 04-05-2024 tetanus toxoid, reduced diphtheria toxoid, and acellular pertussis vaccine, adsorbed Kaden Diamond MD Work Phone: [facility] 10-13-2022 tetanus toxoid, reduced diphtheria toxoid, and acellular pertussis vaccine, adsorbed Dr. 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 Work Phone: [facility] Work Phone: 06-11-2022 influenza virus vaccine, unspecified formulation Kaden Diamond MD Work Phone: [facility] 11-21-2020 COVID-19 original vaccine, full dose, monovalent (MODERNA) Jessica Older [employer].PUBLICATIONS DESIGNER Work Phone: [facility] Work Phone: 08-20-2020 Seasonal, quadrivalent, recombinant, injectable influenza vaccine, preservative free Kaden Diamond MD Work Phone: [facility] Work Phone: 05-12-2013 tetanus toxoid, reduced diphtheria toxoid, and acellular pertussis vaccine, adsorbed Jessica Older [employer].PUBLICATIONS DESIGNER Work Phone: [facility] Payers Date Payer Category Payer Self-pay [id number] 2022 [facility] [id number] 2022 Unknown [id number] 2020 Unknown [id number] Unknown [id number] Unknown [id number] Unknown [id number] Unknown [id number] Unknown [id number] Unknown [id number] 462 Unknown [id number] 462 Unknown [id number] 462 Unknown [id number] 462 Unknown [id number] 462 Social History Date Type Detail Facility Start: 08-10-2015 End: 12-10-2023 Tobacco smoking status SDIS Unknown if ever smoked [facility] Start: 1965 Sex Assigned At Male [facility] Start: 05-12-2013 End: 06-17-2025 Tobacco smoking status NHIS Never smoked tobacco [facility] Work Phone: Start: 05-12-2013 End: 05-09-2024 Tobacco use and exposure Smokeless tobacco non-user [facility] Work Phone: Start: 06-11-2022 End: 06-14-2025 Alcohol intake Current drinker of alcohol (finding) [facility] Start: 11-23-2021 History SDOH Alcohol Frequency 2 [facility] Start: 11-23-2021 History SDOH Alcohol Std Drinks 1 [facility] Start: 11-23-2021 History SDOH Alcohol Comment occasional [facility] Start: 1965 Sex Assigned At Not on file [facility] Start: 11-23-2021 End: 06-14-2025 History of Social function [facility] Start: 11-23-2021 End: 06-14-2025 Alcohol Use Disorder Identification Test - Consumption [AUDIT-C] [facility] How often to you hav e a drink containing alcohol? Monthly or less [facility] How many standard dr inks containing alcohol do you have on a typical day? 1 or 2 [facility] How often do you hav e 6 or more drinks on 1 occasion? Less than monthly [facility] National Score (1-10 0), lower number is lower risk 36 [facility] Start: 05-09-2024 Alcoholic beverage intake Ex-drinker (finding) [facility] How often do you hav e 6 or more drinks on 1 occasion? Never [facility] Start: 04-21-2022 End: 12-30-2024 Sex Male (finding) [facility] Start: 04-18-2025 Alcohol Comment LESS THAN ONCE A MONTH 1-2 DRINKS [facility] Medical Equipment Procedure Code Equipment Code Equipment Origin al Text Equipment Identifier Dates Sys Implant Ib Forefoot Peek - [id number] Start: 05-02-2025 Clinical Notes 06-11-2022 to 06-17-2025 Note Date & Type Note Facility 06-17-2025 Discharge summary [facility] 06-17-2025 Discharge summary Note Date/Time June 17, 2025 5:58pm [facility] Medical Records Department [address] [place] [address] Emergency Department Summary 06/17/25 MR#: [id number] Acct: [id number] Name: HOLLIS MASCORRO Rep #:[id number] : 1965 59 From: Travis Pike DO PCP: Dr. Kaden Diamond MD Status:P RE ER Location: ED HPI History of Present Illness Chief Complaint: Laceration Narrative Narrative: Patient is a 59-year-old male who presents to the emergency department chief complaint of cut to his right finger. According to the patient he was attempting to open a hay hawk when a knife slipped and cut his finger. He states that his tetanus shot is up-to-date was recently updated. He noted that since it was continuously bleeding they came here for further evaluation management. [facility] Medical History Laceration of left forearm URI (upper respiratory infection) Acute pharyngitis, unspecified Arthritis Knee pain Home Medications ?Medication ?Instructions ?Recorded ?Last Taken ?Type folic acid 1 mg tablet 1 mg PO DAILY 07/31/20 Unkno wn History fluticasone furoate 200 inhalation 11/16/20 Unknown History mcg-vilanterol 25 mcg/dose inhalation powder methotrexate sodium 2.5 mg tablet mg PO 11/16/20 Unkno wn History pramipexole 0.25 mg tablet 0.25 mg PO QHS 08/28/22 Unk nown History budesonide 0.25 mg/2 mL suspension 0.25 mg inhalation BID PRN 07/03/23 Unknown History for nebulization clobetasol 0.05 % scalp solution topical 12/10/23 Unkn own History ipratropium bromide 21 mcg (0.03 1 spray intranasal BI D 12/10/23 Unknown History %) nasal spray montelukast 10 mg tablet 10 mg PO QHS 12/10/23 Unknow n History dicyclomine 20 mg tablet 20 mg PO TID PRN abdominal p ain 05/13/24 Unknown Rx #20 tabs Allergy/AdvReac Type Severity Reaction Status Date / Time bee venom protein (honey bee) Allergy Mild unknown Verified 06/17/25 17:24 Latex, Natural Rubber Allergy Mild unknown Verified 06/17/25 17:24 ampicillin Allergy Unknown Other Verified 06/17/25 17:24 Surgical History Hx of foot surgery History of total hip replacement Social History Smoking Status: Never smoker ROS ROS ED ROS Narrative Neurological: Denies any numbness, weakness, tingling Skin: Complains of cut to the right index finger EXAM Physical Exam Narrative Exam Narrative: General: Patient is lying in bed rest comfortably did not appear to be acute distress Head: Atraumatic, normocephalic Eyes: PERRL bilaterally, EOMI bilaterally Cardiovascular: Regular rate Extremities: Radial pulses +2/4 in the bilateral extremities, +5/5 strength noted in the bilateral lower extremities, patient has full flexion extension of his fingers in his right hand Neurological: Patient has sensation grossly intact in the median, ulnar and radial nerve distribution bilaterally Skin: Patient has a chunk of skin missing out of the right index finger with no active bleeding noted there is no laceration to be repaired Const Vital Signs: 06/17/25 17:24 Temperature 97.9 F Temperature Source Oral Pulse Rate 96 Respiratory Rate 18 Blood Pressure 151/99 H Blood Pressure Mean 116 Pulse Ox 98 Oxygen Delivery Method Room Air MDM MDM MDM Narrative Medical decision making narrative: Patient is a 59-year-old male who presents to the emergency department the chiefcomplaint of right index finger wound. On the differential diagnose includes but limited to laceration, abrasion. At this point time there is no repairable laceration and there is a chunk of skin missing out of his right finger. He is advised to keep the area dry and clean wound was cleaned here in the emergency department and Xeroform applied. He is advised to watch out for signs of infection and if this is to occur he is to return to the emergency department orfollow-up with his doctor in outpatient setting. He is advised to do Dreft soaks as well. He is agreeable this plan as well as significant other at bedside he is discharged home in stable condition. Once again the patient's tetanus shot is up-to-date. Discharge Plan Triage Chief Complaint: Laceration ED Provider: Travis Pike Dx/Rx/DC Orders Clinical Impression: Injury of right index finger, History of IBS, Abrasion of right index finger Prescriptions: No Action folic acid 1 mg tablet 1 mg PO DAILY fluticasone furoate-vilanterol 200-25 mcg/dose blister with device INHALATION methotrexate sodium 2.5 mg tablet PO pramipexole 0.25 mg tablet 0.25 mg PO QHS budesonide 0.25 mg/2 mL suspension for nebulization 0.25 mg inhalation BID PRN montelukast 10 mg tablet 10 mg PO QHS ipratropium bromide 21 mcg (0.03 %) spray,non-aerosol 1 spray intranasal BID clobetasol 0.05 % solution topical Patient Comments: PLEASE SEE ATTACHED FOR DETAILED DIRECTIONS dicyclomine 20 mg tablet 20 mg PO TID PRN (Reason: abdominal pain) Qty: 20 0RF Primary Care Provider: Kaden Diamond Referrals: Kaden Diamond MD [Primary Care Provider, Internal Medicine] Activity Restrictions/Additional Instructions: Keep the area dry and clean. Follow-up your doctor in outpatient setting. Return to worsening symptoms or any concerns. Do Dreft soaks as we discussed here. If you develop surrounding redness purulent drainage out of the wound your whole finger becomes very swollen red and painful you need to return to theemergency department immediately Print Language: Nepali Disposition Disposition: Home, Self Care What to do if you have Problems For any increased pain, shortness of breath, bleeding, nausea or vomiting, chestpain, or any unexpected problems, contact your Primary Care Provider. Call [facility] ([phone]) or report to the closest Emergency Room. Call 911 if necessary. 06/17/251757 <Electronically signed by Travis Pike DO> Cosigner Signature (if applicable): CC: Dr. Kaden Diamond MD ~ Signed [facility] Work Phone: [phone] 373-477909-24-2025 History of Present illness Narrative* Karl Nolasco MD - 06/14/2025 3:10 PM EDT Images from the original note were not included. [facility] [address] [facility] [address] [facility] [address] Dept: [phone] Dept 06/14/2025 Chief Complaint Patient presents with Post-op Left index finger MCP radial collateral ligament reconstruction using palmaris longus autograft DOS05/02/2025 SUBJECTIVE Hollis is approximately 6 week(s) s/p Left index finger MCP radial collateral ligament reconstruction using palmaris longus autograft. Pain is minimal. He is no longer taking anything for pain. He denies significant complaints other than the expected amount of pain. Feels pain is improving. OBJECTIVE BP 126/79 (BP Location: Right arm, Patient Position: Sitting) Pulse 61 Ht 5' 9 (1.753 m) Wt 194 lb (88 kg) BMI 28.65 kg/m Ortho Exam Focused Exam of the LEFT Upper Extremity Skin: appropriately healed incision(s) without evidence of infection Edema: mild edema surrounding the at the surgical site Palpation: non tender to palpation throughout ROM: full functional ROM of the shoulder, elbow, and wrist. Clinical ROM Photo(s): Stability: no evidence of joint instabilities, firm end point with stability testing Motor: Intact in the hand - able to fire AIN, PIN, and Ulnar nerves Sensation: intact to light touch in all fingers Perfusion: Brisk capillary refill in all 5 digits Examination of the contralateral upper extremity reveals skin to be warm, dry, and intact. There isno evidence of edema. He has full range of motion without apparent instabilities. There is no apparent tenderness to palpation. Excellent strength without deficit. Normal coordination and sensation throughout his upper extremity. Easily palpable radial pulse. IMAGING No new Xray images obtained this visit. ASSESSMENT (S53.20XA) Traumatic rupture of radial collateral ligament (Z98.890) S/P ligament repair 1. Traumatic rupture of radial collateral ligament 2. S/P ligament repair PLAN Hollis is to continue with slow gradual strength in the hand. Given option for another follow-up at 3 months from surgery but he states he would call the office to be reevaluated if he feels necessary.. Immobilization: NO immobilization required at this point - FULL ROM encouraged without resitrictions Weight Bearing: Progress per therapy protocol Rehabilitation: Continue with therapy as scheduled. Follow-up: Hollis will followup with me on an as needed basis. He knows to call the office with any questions or concerns in the interim. Future Imaging: NONE Karl Nolasco MD Hand and Upper Extremity Surgery [facility] Department of Orthopaedics and Sports Medicine 06/14/2025 at 3:40 PM (Please note that portions of this note may have been completed with a voice recognition program. Efforts were made to edit the dictations but occasionally words are mis-transcribed.) documented in this [facility]08-26-2025 History of Present illness Narrative* Charissa Corley PA-C - 05/16/2025 2:30 PM EDT Subjective: Hollis is approximately 2 week(s) s/p Left index MCP radial collateral ligament reconstruction usingpalmaris longus autograft and Tenolysis EDC and EIP [...] Wt 194 lb (88 kg) BMI 28.65 kg/m Focused Exam of the LEFT Upper Extremity Skin: healing incision without evidence of infection Edema: moderate edema surrounding the hand, mildly increased in areas surrounding the custom splintstraps Palpation: tender to palpation over the surgical sites as expected postoperatively ROM: LEFT index finger MCP (nl 0-45 H/90 ) PIP (nl 0 /100 ) DIP (nl 0 -80 ) Tip to Palm EXTENSION -15 0 0 FLEXION 20 70 80 Not measured *(Passive values entered only if different than active; otherwise = AROM) Remaining fingers flex to palm excluding the middle finger which is approximately 2 cm tip to palm.Active wrist range of motion: full flexion/ full [...] collateral ligament 2. S/P ligament repair Plan Hollis is healing his incision well without signs of infection underwent suture removal today without complication. He will continue with stockinettes under his hand-based custom splint. We did discuss that his splint can be adjusted to allow full MCP motion of his ring and small fingers but if thishelps inhibit attempted use of his hand to avoid noncompliance, we can leave the custom splint as is. He can begin coming out of the splint to work active finger flexion and extension but is to avoidpassive range of motion of the index MCP joint. Finger range of motion was encouraged within the confines of the splint. He will proceed with formal occupational therapy as scheduled and continue home exercises. The patient is to remain nonweightbearing through the hand. He was advised to avoid anytype of pinching or gripping with his index [...] OT/PT Rx given: To follow protocol. Dr. Nolasco/Thalia will see Hollis back in 4 weeks to see how he is doing. Hollis knows to call the office with any questions or concerns in the interim. Future Imaging: NONE Electronically signed by Charissa Corley PA-C to Karl Nolasco M.D. Hand & Upper Extremity Surgery 05/16/2025 at 3:38 PM. (Please note that portions of this note may have been completed with a voice recognition program. Efforts were made to edit the dictations but occasionally words are mis-transcribed.) documented in this [facility]08-19-2025 History of Present illness Narrative* Vikas Tran, OT - 05/09/2025 4:00 PM EDT Images from the original note were not included. [facility] THERAPY AT [address] [facility] [address] Dept: [phone] Dept OCCUPATIONAL THERAPY Orthotic Only Evaluation Patient Name: Hollis Mascorro : 1965 Date of Service: 05/09/2025 Referring Provider: Karl Nolasco MD Diagnosis: Traumatic rupture of radial collateral ligament Visit Info / PMH Hollis Mascorro is a 59 y.o. male presents to clinic for a custom orthosis fabrication in order to protect healing structures. General Visit Information History of Injury: Pt is R hand dominant male. DOI: November 2023. ARNULFO: Injury involving a Steer ramming into his L hand. 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 DOS: 05/02 for RCL repair with PL graft withtenolysis EDC and EIP left index finger . Pt referred for custom orthosis and initiation of formal therapy. Reason for Referral: Custom uqqxoves-ljod-ydkjw MP extension with IP joints free to move-confirmed by Dr. Nolasco. Treatment Guidelines: Protocol in op note. Paper copy given to patient is a will continue with a hand specialist closer to their home. 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 Precautions/Red Flags: Gentle MP AROM initiated at [...] move. Splinting: Fabrication Splinting Education: Fitting, Donning, P[place]ar, Wear schedule, Precautions Splinting Comments: Patient satisfied [...] Splint Time Entry: 37 Vikas Tran OT documented in this [facility]08-19-2025 History of Present illness Narrative* Charissa Rajiv Corley PA-C - 05/09/2025 2:45 PM EDT Images from the original note were not included. Subjective: Hollis is approximately 6 day(s) s/p Left index MCP radial collateral ligament reconstruction using palmaris longus autograft and Tenolysis EDC and EIP left index finger. Pain is minimal. He is takingTylenol for pain relief. He reports improvement in pain. The patient has been compliant with non-weight bearing restrictions in post operative splint. He denies numbness and tingling. The patient is scheduled for a custom splint with occupational therapy today at 3:45. The patient feels that his hand is recovering well postoperatively. He has little to no discomfort.He comes out of his postoperative splint for the first time today and reports compliance with his postoperative restrictions. He would like to attend formal therapy closer to [place] where he lives. He is accompanied today by his . 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 He states that he mostly performs desk work and can avoid lifting through his operative hand. Objective: Ht 5' 9 (1.753 m) Wt 194 lb (88 kg) BMI 28.65 kg/m Focused Exam of the LEFT Upper Extremity Skin: healing incision without evidence of infection Clinical Picture: Edema: mild edema surrounding the surgical site ROM: LEFT index finger MCP (nl 0-45 H/90 ) PIP (nl 0 /100 ) DIP (nl 0 -80 ) Tip to Palm EXTENSION 0 0 0 FLEXION Not measured Not measured Not measured [...] to Occupational Therapy Plan I would like Hollis to be fit with custom splint with [...] demonstrated to the patient today in the office.Finger range of motion was encouraged within the [...] given: To follow protocol. I will see Hollis back in 1 week to see how he is doing. Hollis knows to call the office with any questions or concerns in the interim. Future Imaging: NONE Electronically signed by Charissa Corley PA-C to Karl Nolasco M.D. Hand & Upper Extremity Surgery 05/09/2025 at 3:04 PM. (Please note that portions of this note may have been completed with a voice recognition program. Efforts were made to edit the dictations but occasionally words are mis-transcribed.) documented in this [facility]08-12-2025 History and physical note* Edy Campbell APRN - SKATESMAN - 05/02/2025 11:08 AM EDT [facility] Comprehensive PreSurgical History and Physical Name: Hollis Mascorro : 1965 (Age-59 y.o.) Date of [...] Patient Position: Lying) Pulse 68 Temp 36.2 C (97.2 F) (Temporal) Resp 24 Wt 88 kg (194 lb) SpO2 93% BMI 28.65 kg/m Physical Examination: Constitutional: No apparent distress, well [...] Use Smoking Status Never Smokeless Tobacco Never [facility] [employer] Work Phone: 1(256) 575-316108-12-2025 History and physical note* Edy CampbellCHRISTOPHER CRNA - 05/02/2025 11:08 AM EDT [facility] Comprehensive PreSurgical History and Physical Name: Hollis Mascorro : 1965 (Age-59 y.o.) Date of [...] Patient Position: Lying) Pulse 68 Temp 36.2 C (97.2 F) (Temporal) Resp 24 Wt 88 kg (194 lb) SpO2 93% BMI 28.65 kg/m Physical Examination: Constitutional: No apparent distress, well [...] Use Smoking Status Never Smokeless Tobacco Never * Bridger Justice PA-C - 05/02/2025 7:25 AM EDT [facility] Pre-Surgical History and Physical Name: Hollis Mascorro : 1965 (Age-59 y.o.) Date of Service: Pt seen/examined on 05/02/2025 Chief Complaint: 59 y.o. male who we are asked to see/evaluate Hollis Mascorro for pre-procedure evaluation prior to Procedure Information Date/Time: 05/02/25 22 Procedure: LEFT INDEX FINGER METACARPOPHALANGEAL RADIAL COLLATERAL LIGAMENT RECONSTRUCTION USING PALMARIS LONGUS AUTOGRAFT (Left: Hand) - 120 minutes total Location: [address] Operating Room Surgeons: Karl Nolasco MD History Of Present Illness: HPI: Pt here for LEFT INDEX FINGER METACARPOPHALANGEAL RADIAL COLLATERAL LIGAMENT RECONSTRUCTION USING PALMARIS LONGUS AUTOGRAFT BP 118/74 Pulse 54 Temp 36.2 C (97.2 F) (Temporal) Resp 16 Wt 194 lb (88 kg) SpO2 94% BMI 28.65 kg/m Medical History[1] There are no active problems to display for this patient. Surgical History[2] Family History[3] Medications: Prior to Admission medications Medication Sig Start Date End Date Taking? Authorizing Provider Keyla Ortiz 100-25 MCG/ACT aerosol powder Inhale. Yes Historical Provider, MD fexofenadine (Rachell) 180 MG tablet Take 180 [...] morning and 300 mg at noon and 300mg in the evening and 300 mg before bedtime. Historical Provider, methotrexate 2.5 MG tablet Take 6 tablets by mouth 1 (one) time per week . TAKES ON THURSDAY Historical ProviderMD montelukast (Singulair) 10 MG tablet Take 1 tablet by mouth Nightly. Patient not taking: Reported on 05/02/2025 12/15/22 Historical ProviderMD predniSONE (Deltasone) 10 MG tablet Take 10 [...] Use Smoking Status Never Smokeless Tobacco Never Cosigned by Karl Nolasco MD at 05/02/2025 9:07 AM EDT documented in this [facility]08-12-2025 [facility] Comprehensive PreSurgical History and Physical Name: Hollis Mascorro : 1965 (Age-59 y.o.) Date of [...] Tobacco Use Smoking Status Never Smokeless Tobacco [facility]08-12-2025 Miscellaneous Notes* Perioperative Nursing Note - Angela Monique RN - 05/02/2025 11:00 AM EDT Pt dressed with little assist-Tolerated activity well. States he is ready to go home. * Perioperative Nursing Note - Angela Monique RN - 05/02/2025 10:49 AM EDT Homegoing isntrucitons given to pt and spouse verbally and written. Both verbalize understanding, no questions at this time. Pt set up on side of cart- denies any dizziness,pain,nausea. * Perioperative Nursing Note - Angela Monique RN - 05/02/2025 10:17 AM EDT Pt awake and drinking soda-tolerating well. * Perioperative Nursing Note - Angela Monique RN - 05/02/2025 10:07 AM EDT Pt opens eyes and answers questions appropriately. * Perioperative Nursing Note - Yessi Barragan RN - 05/02/2025 9:26 AM EDT Pt received from OR via cart, spont. Resp. With SKATESMAN in attendance. Placed on monitor. Monitor alarms on in PACU * Op Note - Karl Nolasco MD - 05/02/2025 7:29 AM EDT [facility] MAIN OR [address] [address] Dept: [phone] Loc: [phone] Operative Report Patient Name: Hollis Mascorro Date of : 1965 Date of [...] after intra operative cultures obtained Indications: Mr. Hollis Mascorro is a 59 y.o. year-old male who presents today for surgical intervention. I have discussed with him, preoperatively, the complications, limitations, expectations, alternatives, and risks of surgical intervention which he has demonstrated understanding. No guarantees were given or implied. After having all of his questions answered to his satisfaction, Mr. Hollis Mascorro hasprovided written informed consent to proceed. Please see previous notes for full operative risk discussion. Procedure: Hollis Mascorro was identified in the preoperative waiting [...] patient's ASA was verified by the nurse boot maker and the anesthesia staff. Fire risk was [...] blade scalpel in order to release peritendinous adhesionsof both tendons to allow for normal tendinous [...] I was able to access the joint whichappeared healthy without chondral wear. Attention was then [...] excellent stability to the radial collateral ligament withfull impingement free passive range of motion. The joint was augustina irrigated normal saline. The [place] RCL tissue was repaired in an imbricated fashion over top of the reconstruction using 3-0 FiberWire suture. The sagittal band was repaired using 3-0 FiberWire suture and the tourniquet plated. Thewound was irrigated and saline hemostasis achieved with bipolar cautery and gentle compression. Theskin was closed in layers followed by an MCP blocking splint. Mr. Hollis Mascorro was taken to the recovery room in stable condition. POST OPERATIVE PLAN Phase 1: Immediate Postoperative (Days 0-14) Splint Type: Forearm-based radial gutter splint Positioning: Wrist: ~20 extension MCP joint: ~45 flexion IP joints: free to move Purpose: [...] during the day to allow controlled motion whilepreventing ulnar deviation. Phase 3: Intermediate Recovery (Weeks [...] Karl Nolasco MD 05/02/2025 , 9:25 AM documented in this [facility]08-12-2025 Nurse Note* Perioperative Nursing Note - Angela Monique RN - 05/02/2025 11:00 AM EDT Pt dressed with little assist-Tolerated activity well. States he is ready to go home. [facility] [id number] Nurse Note* Perioperative Nursing Note - Angela Monique RN - 05/02/2025 10:49 AM EDT Homegoing isntrucitons given to pt and spouse verbally and written. Both verbalize understanding, no questions at this time. Pt set up on side of cart- denies any dizziness,pain,nausea. [facility] [id number] Note* Anesthesia Discharge Note - Josie Williamson RN - 05/02/2025 10:17 AM EDT Patient: Hollis Mascorro Procedure Summary Date: 05/02/25 Room / Location: [address] Operating Room Anesthesia Start: 728 Anesthesia Stop: 929 Procedure: LEFT INDEX FINGER METACARPOPHALANGEAL RADIAL COLLATERAL LIGAMENT RECONSTRUCTION USING PALMARIS LONGUS AUTOGRAFT (Left: Hand) Diagnosis: Traumatic rupture of unspecified radial collateral ligament, initial encounter Surgeons: Karl Nolasco MD Responsible Provider: No Anesthesiologist - Lucinda/Msc, MD Anesthesia Type: TIVA, regional ASA Status: 2 Anesthesia Type: TIVA, regional Vitals Value Taken Time BP 120/79 05/02/25 10:10 Temp 36.4 C (97.5 F) 05/02/25 10:00 Pulse 72 05/02/25 10:16 Resp [...] once all PACU criteria has been met. Cosigned by Edy Campbell APRN - SKATESMAN at 05/02/2025 1:05 PM EDT [facility] [id number] NotePatient: Hollis Mascorro Procedure Summary Date: 05/02/25 Room / Location: [address] Operating Room Anesthesia Start: 728 Anesthesia Stop: 929 Procedure: LEFT INDEX FINGER METACARPOPHALANGEAL RADIAL COLLATERAL LIGAMENT RECONSTRUCTION USING PALMARIS LONGUS AUTOGRAFT (Left: Hand) Diagnosis: Traumatic rupture of unspecified radial collateral ligament, initial encounter Surgeons: Karl Nolasco MD Responsible Provider: Samantha Anesthesiologist - Lucinda/MD Brian Anesthesia Type: TIVA, [...] discharged once all PACU criteria has been met.[facility]08-12-2025 Nurse Note* Perioperative Nursing Note - Angela Monique RN - 05/02/2025 10:17 AM EDT Pt awake and drinking soda-tolerating well. [facility] [id number] Miscellaneous Notes* Anesthesia Discharge Note - Josie Williamson RN - 05/02/2025 10:17 AM EDT Patient: Hollis Mascorro Procedure Summary Date: 05/02/25 Room / Location: [address] Operating Room Anesthesia Start: 728 Anesthesia Stop: 929 Procedure: LEFT INDEX FINGER METACARPOPHALANGEAL RADIAL COLLATERAL LIGAMENT RECONSTRUCTION USING PALMARIS LONGUS AUTOGRAFT (Left: Hand) Diagnosis: Traumatic rupture of unspecified radial collateral ligament, initial encounter Surgeons: Karl Nolasco MD Responsible Provider: No Anesthesiologist - MD Leonie Anesthesia Type: TIVA, regional ASA Status: 2 Anesthesia Type: TIVA, regional Vitals Value Taken Time BP 120/79 05/02/25 10:10 Temp 36.4 C (97.5 F) 05/02/25 10:00 Pulse 72 05/02/25 10:16 Resp [...] once all PACU criteria has been met. Cosigned by CHRISTOPHER Plascencia CRNA at 05/02/2025 1:05 PM EDT documented in this [facility]08-12-2025 Anesthesiology Postoperative evaluation and management note* Anesthesia Postprocedure Evaluation - Josie Williamson RN - 05/02/2025 10:15 AM EDT Patient: Hollis Mascorro Procedure Summary Date: 05/02/25 Room / Location: [address] Operating Room Anesthesia Start: 728 Anesthesia [...] Time BP 120/79 05/02/25 10:10 Temp 36.4 C (97.5 F) 05/02/25 10:00 Pulse 74 05/02/25 10:14 Resp [...] factors for PONV (4556F) Patient received at [facility] 2 prophylactic Rx PONV anti-emtic agents of [...] a current smoker (e.g. cigarette, cigar, pipe, e- cigarette/vaping/marijuana) If no stop here (XX404) I completed my handoff to the receiving clinician during which we: 1. Identified the patient 2. Identified the responsible provider 3. Reviewed the pertinent medical history 4. Discussed the surgical course 5. Reviewed intra-op anesthesia management and issues during anesthesia 6. Set expectations for post-procedure period 7. Allowed opportunity for questions and acknowledgement of understanding. Cosigned by CHRISTOPHER Plascencia CRNA at 05/02/2025 1:05 PM EDT [facility] [id number] NotePatient: Hollis Mascorro Procedure Summary Date: 05/02/25 Room / Location: [address] Operating Room Anesthesia Start: 728 Anesthesia Stop: 929 Procedure: LEFT INDEX FINGER METACARPOPHALANGEAL RADIAL COLLATERAL LIGAMENT RECONSTRUCTION USING PALMARIS LONGUS AUTOGRAFT (Left: Hand) Diagnosis: Traumatic rupture of unspecified radial collateral ligament, initial encounter Surgeons: Karl Nolasco MD Responsible Provider: Samantha Anesthesiologist - Lucinda/MD Brian Anesthesia Type: TIVA, [...] factors for PONV (4556F) Patient received at [facility] 2 prophylactic Rx PONV anti-emtic agents of [...] Allowed opportunity for questions and acknowledgement of understanding.[facility]08-12-2025 Surgical operation note* Anesthesia Postprocedure Evaluation - Josie Williamson RN - 05/02/2025 10:15 AM EDT Patient: Hollis Mascorro Procedure Summary Date: 05/02/25 Room / Location: [address] Operating Room Anesthesia Start: 728 Anesthesia [...] Time BP 120/79 05/02/25 10:10 Temp 36.4 C (97.5 F) 05/02/25 10:00 Pulse 74 05/02/25 10:14 Resp [...] factors for PONV (4556F) Patient received at [facility] 2 prophylactic Rx PONV anti-emtic agents of [...] a current smoker (e.g. cigarette, cigar, pipe, e- cigarette/vaping/marijuana) If no stop here (XX404) I completed my handoff to the receiving clinician during which we: 1. Identified the patient 2. Identified the responsible provider 3. Reviewed the pertinent medical history 4. Discussed the surgical course 5. Reviewed intra-op anesthesia management and issues during anesthesia 6. Set expectations for post-procedure period 7. Allowed opportunity for questions and acknowledgement of understanding. Cosigned by CHRISTOPHER Plascencia CRNA at 05/02/2025 1:05 PM EDT * Anesthesia Procedure Notes - CHRISTOPHER Plascencia CRNA - 05/02/2025 8:05 AM EDTAssociated Order(s): Peripheral Block Peripheral Block Time Out: 05/02/2025 7:11 AM Patient location during procedure: Procedural Start time: 05/02/2025 7:12 AM End time: 05/02/2025 7:18 AM Reason for block: at surgeon's request and post-op pain management Staffing Performed: ZULEYMA Resident/SKATESMAN: CHRISTOPHER Plascencia CRNA, RN Preanesthetic Checklist Completed: patient identified, IV [...] - IntraVENous 2 mg - 05/02/2025 7:12:00 KXhnuQVTPLhksdu-zayscribjiv-udwnnbwshgg (TAP) syringe - Injection 25 mL - 05/02/2025 7:12:00 AM * Anesthesia Procedure Notes - Josie Williamson RN - 05/02/2025 7:43 AM EDT Associated Order(s): Airway Airway Date/Time: 05/02/2025 7:34 AM Reason: scheduled General Information and Staff Patient location during procedure: Procedural Performed: SRNA Patient Condition Indications for airway management: anesthesia Patient position: sniffing Sedation level: Asleep Final Airway Details Preoxygenated: yes Final airway type: supraglottic airway Successful airway: Igel Size: 4 Number of attempts at approach: 1 Cosigned by CHRISTOPHER Plascencia CRNA at 05/02/2025 8:07 AM EDT * Anesthesia Preprocedure Evaluation - CHRISTOPHER Plascencia CRNA - 05/02/2025 7:03 AM EDT Patient: Hollis Mascorro Procedure Information Date/Time: 05/02/25729 Procedure: LEFT INDEX FINGER METACARPOPHALANGEAL RADIAL COLLATERAL LIGAMENT RECONSTRUCTION USING PALMARIS LONGUS AUTOGRAFT (Left: Hand) - 120 minutes total Location: [address] Operating Room Surgeons: Karl Nolasco MD [...] Requests [1] No family history on file. documented in this encounterSumma [id number] Nurse Note* Perioperative Nursing Note - Angela Monique RN - 05/02/2025 10:07 AM EDT Pt opens eyes and answers questions appropriately. [facility] [id number] Procedure anesthesia Narrative* Procedure Summary Procedure Name Responsible Anesthesiologist Anesthesia Start Time Anesthesia Stop Time LEFT INDEX FINGER METACARPOPHALANGEAL RADIAL COLLATERAL LIGAMENT RECONSTRUCTION USING PALMARIS LONGUS AUTOGRAFT (Left: Hand) No Anesthesiologist - Lucinda/MD Brian 05/02/25 0729 05/02/25 0930 Events Date Time Event Comment 05/02/2025 0641 AN Preop Started 0704 0729 An Start 0729 In Room 0729 An Start Data 0732 An Induction The patient was reevaluated immediately before moderate or deep sedation use and before anesthesia induction. 0734 An Intubation 0734 Anesthesia Ready 0748 Proc Start 0921 Proc Fin 0922 An Extubation - Spontaneous ventilation - Patient suctioned - Airway removed without difficulty - Spontaneous ventilation maintained 0923 an stop data 0924 Out of Room 0930 An Stop Meds Name Total lidocaine PF (Xylocaine-MPF) local injec tion 2 % 100 mg propofol (Diprivan) injection 10 mg/mL 2 00 mg dexAMETHasone (Decadron) PF injection 10 mg/mL 8 mg ondansetron (Zofran) 2 mg/mL injection 4 mg ketorolac (Toradol) injection 30 mg 15 m g clindamycin in D5W (Cleocin) IVPB 600 mg 600 mg bkpMPQQQivhwl-gjcznodguky-uprffqgtava (T AP) syringe 25 mL midazolam (Versed) injection 2 mg lactated Ringer's (LR) infusion 400 mL * Agents Name O2 N2O Air Isoflurane * Blood No blood administrations on file. Lines, Drains, and Airways Type Details Placement Removal Wound/Incision Incision; Finger - index; Anterior, Left 05/02/25 0842 by Peripheral IV Placement Date: 05/02/25; Placement Time: 641; Catheter Size: 20 G; Orientation: Posterior, Right; Location: Hand; Site Prep: Chlorhexidine, Alcohol; Local Anesth: None; Technique: Anatomical landmarks; Inserted by: Rashid Wu RN; Insertion Attempts: 1; Difficult Venous Access? No; Removal Date: 05/02/25; Removal Time: 1103 05/02/25 0642 by Jere Perales RN 05/02/25 110 by Angela Monique RN Supraglottic Airway Placement Date: 05/02/25; Placement Time: 733 (created via procedure documentation); Mask Ventilation: 0; Size: 4; Insertion Attempts: 1; Removal Date: 05/02/25; Removal Time: 92105/02/25 07 by Josie Williamson RN 05/02/25 09 by Josie Williamson RN documented in this encounter [facility] [id number] Nurse Note* Perioperative Nursing Note - Yessi Barragan RN - 05/02/2025 9:26 AM EDT Pt received from OR via cart, spont. Resp. With SKATESMAN in attendance. Placed on monitor. Monitor alarms on in PACU [facility] [employer] Work Phone: 1(354) 913-846008-12-2025 Anesthesiology procedure note* Anesthesia Procedure Notes - CHRISTOPHER Plascencia CRNA - 05/02/2025 8:05 AM EDT Associated Order(s): Peripheral Block Peripheral Block Time Out: 05/02/2025 7:11 AM Patient location during procedure: Procedural Start time: 05/02/2025 7:12 AM End time: 05/02/2025 7:18 AM Reason for block: at surgeon's request and post-op pain management Staffing Performed: ZULEYMA Resident/SKATESMAN: CHRISTOPHER Plascencia CRNA, RN Preanesthetic Checklist Completed: patient identified, IV [...] - IntraVENous 2 mg - 05/02/2025 7:12:00 KZynzGUKMEafaee-mrcjsxkhpjb-mxlscioldel (TAP) syringe - Injection 25 mL - 05/02/2025 7:12:00 AM [employer] Phone: 1(697) 992-932208-12-2025 NotePeripheral Block Time Out: 05/02/2025 7:11 AM Patient location during procedure: Procedural Start time: 05/02/2025 7:12 AM End time: 05/02/2025 7:18 AM Reason for block: at surgeon's request and post-op pain management Staffing Performed: ZULEYMA Resident/SKATESMAN: CHRISTOPHER Plascencia CRNA, RN Preanesthetic Checklist Completed: patient identified, IV [...] - IntraVENous 2 mg - 05/02/2025 7:12:00 YZtuyRZKGEqmowm-uoybycjdqwt-rmmpnfzmcza (TAP) syringe - Injection 25 mL - 05/02/2025 7:12:00 [facility]08-12-2025 Anesthesiology procedure note* Anesthesia Procedure Notes - Josie Williamson RN - 05/02/2025 7:43 AM EDTAssociated Order(s): Airway Airway Date/Time: 05/02/2025 7:34 AM Reason: scheduled General Information and Staff Patient location during procedure: Procedural Performed: SRNA Patient Condition Indications for airway management: anesthesia Patient position: sniffing Sedation level: Asleep Final Airway Details Preoxygenated: yes Final airway type: supraglottic airway Successful airway: Igel Size: 4 Number of attempts at approach: 1 Cosigned by CHRISTOPHER Plascencia CRNA at 05/02/2025 8:07 AM EDT [facility] [id number] NoteAirway Date/Time: 05/02/2025 7:34 AM Reason: scheduled General Information and Staff Patient location during procedure: Procedural Performed: SRNA Patient Condition Indications for airway management: anesthesia Patient position: sniffing Sedation level: Asleep Final Airway Details Preoxygenated: yes Final airway type: supraglottic airway Successful airway: Igel Size: 4 Number of attempts at approach: [address] [place], [place] 7142408-12-2025 Procedure note* Op Note - Karl Nolasco MD - 05/02/2025 7:29 AM EDT [facility] MAIN OR [address] [address] Dept: [phone] Loc: [phone] Operative Report Patient Name: Hollis Mascorro Date of : 1965 Date of [...] after intra operative cultures obtained Indications: Mr. Hollis Mascorro is a 59 y.o. year-old male who presents today for surgical intervention. I have discussed with him, preoperatively, the complications, limitations, expectations, alternatives, and risks of surgical intervention which he has demonstrated understanding. No guarantees were given or implied. After having all of his questions answered to his satisfaction, Mr. Hollis Mascorro hasprovided written informed consent to proceed. Please see previous notes for full operative risk discussion. Procedure: Hollis Mascorro was identified in the preoperative waiting [...] patient's ASA was verified by the nurse boot maker and the anesthesia staff. Fire risk was [...] blade scalpel in order to release peritendinous adhesionsof both tendons to allow for normal tendinous [...] I was able to access the joint whichappeared healthy without chondral wear. Attention was then [...] excellent stability to the radial collateral ligament withfull impingement free passive range of motion. The joint was augustina irrigated normal saline. The [place] RCL tissue was repaired in an imbricated fashion over top of the reconstruction using 3-0 FiberWire suture. The sagittal band was repaired using 3-0 FiberWire suture and the tourniquet plated. Thewound was irrigated and saline hemostasis achieved with bipolar cautery and gentle compression. Theskin was closed in layers followed by an MCP blocking splint. Mr. Hollis Mascorro was taken to the recovery room in stable condition. POST OPERATIVE PLAN Phase 1: Immediate Postoperative (Days 0-14) Splint Type: Forearm-based radial gutter splint Positioning: Wrist: ~20 extension MCP joint: ~45 flexion IP joints: free to move Purpose: [...] during the day to allow controlled motion whilepreventing ulnar deviation. Phase 3: Intermediate Recovery (Weeks [...] Karl Nolasco MD 05/02/2025 , 9:25 AM [place] Phone: [phone]) 433-275208-12-2025 Hospital Discharge instructions* Discharge Instructions* Bridger Justice PA-C - 05/02/2025 7:28 AM EDT Bandage: Keep operative splint/dressing on, clean, and dry until follow up appointment in 1-2 weeks. Swelling control: Elevate and Ice for pain control. Immobilization: Encourage range of motion of last two joints of index finger, long finger, ring finger, little finger, thumb in splint/dressing with goal of touching finger tips to splint material/dressing in palm by initial post op appointment. Encourage elbow range of motion. Weightbearing: Non weight bearing in operative extremity. Nerve block for pain control: If you have any questions regarding your nerve block and/or catheter, please refer to the information packet provided in your post op folder. You can also call (generic nurse) or [phone] and page [facility] long distance billing operator for further questions or concerns. Okay to discontinue sling once the nerve block has worn off and motor function as well as sensation has returned to your arm. * Attachments The following attachments cannot be sent through Care Everywhere. * General Anesthesia Discharge Instructions (Nepali) documented in this [facility]08-12-2025 History and physical note* Bridger Justice PA-C - 05/02/2025 7:25 AM EDT [facility] Pre-Surgical History and Physical Name: Hollis Mascorro : 1965 (Age-59 y.o.) Date of Service: Pt seen/examined on 05/02/2025 Chief Complaint: 59 y.o. male who we are asked to see/evaluate Hollis Mascorro for pre-procedure evaluation prior to Procedure Information Date/Time: 05/02/25 0730 Procedure: LEFT INDEX FINGER METACARPOPHALANGEAL RADIAL COLLATERAL LIGAMENT RECONSTRUCTION USING PALMARIS LONGUS AUTOGRAFT (Left: Hand) - 120 minutes total Location: [address] Operating Room Surgeons: Karl Nolasco MD History Of Present Illness: HPI: Pt here for LEFT INDEX FINGER METACARPOPHALANGEAL RADIAL COLLATERAL LIGAMENT RECONSTRUCTION USING PALMARIS LONGUS AUTOGRAFT BP 118/74 Pulse 54 Temp 36.2 C (97.2 F) (Temporal) Resp 16 Wt 194 lb (88 kg) SpO2 94% BMI 28.65 kg/m Medical History[1] There are no active problems to display for this patient. Surgical History[2] Family History[3] Medications: Prior to Admission medications Medication Sig Start Date End Date Taking? Authorizing Provider Keyla Ellipmacario 100-25 MCG/ACT aerosol powder Inhale. Yes Historical [...] morning and 300 mg at noon and 300mg in the evening and 300 mg before [...] Use Smoking Status Never Smokeless Tobacco Never Cosigned by Karl Nolasco MD at 05/02/2025 9:07 AM EDT [facility] [id number] [facility] Pre-Surgical History and Physical Name: Hollis Mascorro : 1965 (Age-59 y.o.) Date of Service: Pt seen/examined on 05/02/2025 Chief Complaint: 59 y.o. male who we are asked to see/evaluate Hollis Mascorro for pre-procedure evaluation prior to Procedure Information Date/Time: 05/02/25729 Procedure: LEFT INDEX FINGER METACARPOPHALANGEAL RADIAL COLLATERAL LIGAMENT RECONSTRUCTION USING PALMARIS LONGUS AUTOGRAFT (Left: Hand) - 120 minutes total Location: [address] Operating Room Surgeons: Karl Nolasco MD [...] Date End Date Taking? Authorizing Provider Keyla Ellipmacario 100-25 MCG/ACT aerosol powder Inhale. Yes Historical [...] Tobacco Use Smoking Status Never Smokeless Tobacco [facility]08-12-2025 Anesthesiology Preoperative evaluation and management note* Anesthesia Preprocedure Evaluation - Edy Campbell APRN - SKATESMAN - 05/02/2025 7:03 AM EDT Patient: Hollis Mascorro Procedure Information Date/Time: 05/02/25729 Procedure: LEFT INDEX FINGER METACARPOPHALANGEAL RADIAL COLLATERAL LIGAMENT RECONSTRUCTION USING PALMARIS LONGUS AUTOGRAFT (Left: Hand) - 120 minutes total Location: [address] Operating Room Surgeons: Karl Nolasco MD [...] Requests [1] No family history on file. [facility]08-12-2025 NotePatient: Hollis Subha Procedure Information Date/Time: 05/02/2530 Procedure: LEFT INDEX FINGER METACARPOPHALANGEAL RADIAL COLLATERAL LIGAMENT RECONSTRUCTION USING PALMARIS LONGUS AUTOGRAFT (Left: Hand) - 120 minutes total Location: [address] Operating Room Surgeons: Karl Nolasco MD [...] Equipment Requests [1] No family history on file.[facility]08-07-2025 Note* Addendum Note - Carolyn Rodriguez ATC - 04/27/2025 1:43 PM EDTAddended by: CAROLYN RODRIGUEZ on: 04/27/2025 01:43 PM Modules accepted: Orders [facility] [id number] Note* Addendum Note - Carolyn Rodriguez ATC - 04/27/2025 1:43 PM EDTAddended by: CAROLYN RODRIGUEZ on: 04/27/2025 01:43 PM Modules accepted: Orders [place] [id number] Miscellaneous Notes* Addendum Note - Carolyn Rodriguez ATC - 04/27/2025 1:43 PM EDTAddended by: CAROLYN RODRIGUEZ on: 04/27/2025 01:43 PM Modules accepted: Orders * Telephone Encounter - Carolyn Rodriguez ATC - 04/27/2025 1:42 PM EDT Custom splint order placed * Telephone Encounter - Yessi Don - 04/27/2025 1:39 PM EDT Images from the original note were not included. Can you place another order for a custom splint? Please hand based radial gutter * Telephone Encounter - Bridger Justice PA-C - 07/26/2024 11:29 AM EST PAT and Splint Order Signed. * Telephone Encounter - Yessi Don - 07/26/2024 8:10 AM EST Images from the original note were not included. Please enter PAT orders, please Sx-05/02 @8a Consent- Left index finger MCP radial collateral ligament reconstruction using palmaris longus autograft Dx-(S53.20XA) Traumatic rupture of radial collateral ligament Anesthesia- MAC , Regional PAT- 04/18 @ 10:30a Surgery Checklist Details Calendar done Clearance no Case # [id number] Authorization Jess Armendariz [id number] clinicals PAT Day/Time done PAT Orders to Christianity done Splint yes IPO 05/08 @ 11a [facility] SURGERY SCHEDULING SLIP Patient: Hollis Mascorro Date of : 1965 Date of Surgery: Next available Day of Surgery: [facility]: [place] Duration: 2hrs Type: Outpatient PAT: Yes - tele Med Clearance: No Anesthesia: MAC Block: Regional Position: Supine Table: Stretcher Arm Board: Roll-up arm table Radiology: Small C-Arm CPT Code: 71386 Consent: Left index finger MCP radial collateral ligament reconstruction using palmaris longus autograft FollowUp: Any P.A. in 5-7 days XRays: No OT Splint needed at first PO appointment: Yes - hand based radial gutter Special Requests Hand tray Arthrex 3mm tenodesis screws Krunal needles Looped 4-0 fiberwire documented in this encounterSReg[facility] Hospital [id number] Telephone encounter Note* Telephone Encounter - Carolyn Rodriguez ATC - 04/27/2025 1:42 PM EDT Custom splint order placed [facility] [id number] Telephone encounter Note* Telephone Encounter - Yessi Don - 04/27/2025 1:39 PM EDT Images from the original note were not included. Can you place another order for a custom splint? Please hand based radial gutter [facility] [id number] Telephone encounter Note* Telephone Encounter - Bridger Justice PA-C - 07/26/2024 11:29 AM EST PAT and Splint Order Signed. [facility] [id number] Miscellaneous Notes* Telephone Encounter - Bridger Justice PA-C - 07/26/2024 11:29 AM EST PAT and Splint Order Signed. * Telephone Encounter - Yessi Don - 07/26/2024 8:10 AM EST Please enter PAT orders, please Sx- 11/01 @ 8a Consent- Left index finger MCP radial collateral ligament reconstruction using palmaris longus autograft Dx-(S53.20XA) Traumatic rupture of radial collateral ligament Anesthesia- MAC , Regional PAT- tele Surgery Checklist Details Calendar done Clearance no Case # [id number] Authorization 09/19 unable to start auth due to anthem hold up PAT Day/Time PAT Orders to Bridger mir Splint yes IPO 11/07 @ 2pm @ WP (per pt choice) [facility] SURGERY SCHEDULING SLIP Patient: Hollis Mascorro Date of : 1965 Date of Surgery: Next available Day of Surgery: [facility]: [place] Duration: 2hrs Type: Outpatient PAT: Yes - tele Med Clearance: No Anesthesia: MAC Block: Regional Position: Supine Table: Stretcher Arm Board: Roll-up arm table Radiology: Small C-Arm CPT Code: 21835 Consent: Left index finger MCP radial collateral ligament reconstruction using palmaris longus autograft FollowUp: Any P.A. in 5-7 days XRays: No OT Splint needed at first PO appointment: Yes - hand based radial gutter Special Requests Hand tray Arthrex 3mm tenodesis screws Krunal needles Looped 4-0 fiberwire documented in this [place] [address]-05-2024 Miscellaneous Notes* Telephone Encounter - Bridger Justice PA-C - 07/26/2024 11:29 AM EST PAT and Splint Order Signed. * Telephone Encounter - Yessi Don - 07/26/2024 8:10 AM EST Please enter PAT orders, please Sx-05/02 @8a Consent- Left index finger MCP radial collateral ligament reconstruction using palmaris longus autograft Dx-(S53.20XA) Traumatic rupture of radial collateral ligament Anesthesia- MAC , Regional PAT- Surgery Checklist Details Calendar done Clearance no Case # [id number] Authorization PAT Day/Time PAT Orders to Christianity done Splint yes IPO 05/08 @ 11a [facility] SURGERY SCHEDULING SLIP Patient: Hollis Mascorro Date of : 1965 Date of Surgery: Next available Day of Surgery: [facility]: [place] Duration: 2hrs Type: Outpatient PAT: Yes - tele Med Clearance: No Anesthesia: MAC Block: Regional Position: Supine Table: Stretcher Arm Board: Roll-up arm table Radiology: Small C-Arm CPT Code: 65769 Consent: Left index finger MCP radial collateral ligament reconstruction using palmaris longus autograft FollowUp: Any P.A. in 5-7 days XRays: No OT Splint needed at first PO appointment: Yes - hand based radial gutter Special Requests Hand tray Arthrex 3mm tenodesis screws Krunal needles Looped 4-0 fiberwire documented in this [facility]11-05-2024 Miscellaneous Notes* Telephone Encounter - Bridger Justice PA-C - 07/26/2024 11:29 AM EST PAT and Splint Order Signed. * Telephone Encounter - Yessi Don - 07/26/2024 8:10 AM EST Images from the original note were not included. Please enter PAT orders, please Sx-05/02 @8a Consent- Left index finger MCP radial collateral ligament reconstruction using palmaris longus autograft Dx-(S53.20XA) Traumatic rupture of radial collateral ligament Anesthesia- MAC , Regional PAT- 04/18 @ 10:30a Surgery Checklist Details Calendar done Clearance no Case # [id number] Authorization Jess harris PAT Day/Time PAT Orders to Bridger mir Splint yes IPO 05/08 @ 11a [facility] SURGERY SCHEDULING SLIP Patient: Hollis Mascorro Date of : 1965 Date of Surgery: Next available Day of Surgery: [facility]: [place] Duration: 2hrs Type: Outpatient PAT: Yes - tele Med Clearance: No Anesthesia: MAC Block: Regional Position: Supine Table: Stretcher Arm Board: Roll-up arm table Radiology: Small C-Arm CPT Code: 27062 Consent: Left index finger MCP radial collateral ligament reconstruction using palmaris longus autograft FollowUp: Any P.A. in 5-7 days XRays: No OT Splint needed at first PO appointment: Yes - hand based radial gutter Special Requests Hand tray Arthrex 3mm tenodesis screws Krunal needles Looped 4-0 fiberwire documented in this [facility]11-05-2024 Miscellaneous Notes* Telephone Encounter - Bridger Justice PA-C - 07/26/2024 11:29 AM EST PAT and Splint Order Signed. * Telephone Encounter - Yessi Don - 07/26/2024 8:10 AM EST Images from the original note were not included. Please enter PAT orders, please Sx-05/02 @8a Consent- Left index finger MCP radial collateral ligament reconstruction using palmaris longus autograft Dx-(S53.20XA) Traumatic rupture of radial collateral ligament Anesthesia- MAC , Regional PAT- 04/18 @ 10:30a Surgery Checklist Details Calendar done Clearance no Case # [id number] Authorization Jess Armendariz [id number] clinicals PAT Day/Time done PAT Orders to Christianity done Splint yes IPO 05/08 @ 11a [facility] SURGERY SCHEDULING SLIP Patient: Hollis Mascorro Date of : 1965 Date of Surgery: Next available Day of Surgery: [facility]: [place] Duration: 2hrs Type: Outpatient PAT: Yes - tele Med Clearance: No Anesthesia: MAC Block: Regional Position: Supine Table: Stretcher Arm Board: Roll-up arm table Radiology: Small C-Arm CPT Code: 47578 Consent: Left index finger MCP radial collateral ligament reconstruction using palmaris longus autograft FollowUp: Any P.A. in 5-7 days XRays: No OT Splint needed at first PO appointment: Yes - hand based radial gutter Special Requests Hand tray Arthrex 3mm tenodesis screws Krunal needles Looped 4-0 fiberwire documented in this [facility]11-05-2024 Miscellaneous Notes* Telephone Encounter - Bridger Justice PA-C - 07/26/2024 11:29 AM EST PAT and Splint Order Signed. * Telephone Encounter - Yessi Don - 07/26/2024 8:10 AM EST Images from the original note were not included. Please enter PAT orders, please Sx-05/02 @8a Consent- Left index finger MCP radial collateral ligament reconstruction using palmaris longus autograft Dx-(S53.20XA) Traumatic rupture of radial collateral ligament Anesthesia- MAC , Regional PAT- 04/18 @ 10:30a Surgery Checklist Details Calendar done Clearance no Case # [id number] Authorization Jess Armendariz [id number] clinicals PAT Day/Time done PAT Orders to Christianity done Splint yes IPO 05/08 @ 11a [facility] SURGERY SCHEDULING SLIP Patient: Hollis Mascorro Date of : 1965 Date of Surgery: Next available Day of Surgery: [facility]: [place] Duration: 2hrs Type: Outpatient PAT: Yes - tele Med Clearance: No Anesthesia: MAC Block: Regional Position: Supine Table: Stretcher Arm Board: Roll-up arm table Radiology: Small C-Arm CPT Code: 85472 Consent: Left index finger MCP radial collateral ligament reconstruction using palmaris longus autograft FollowUp: Any P.A. in 5-7 days XRays: No OT Splint needed at first PO appointment: Yes - hand based radial gutter Special Requests Hand tray Arthrex 3mm tenodesis screws Krunal needles Looped 4-0 fiberwire documented in this [facility]11-05-2024 Telephone encounter Note* Telephone Encounter - Yessi Don - 07/26/2024 8:10 AM EST Images from the original note were not included. Please enter PAT orders, please Sx-05/02 @8a Consent- Left index finger MCP radial collateral ligament reconstruction using palmaris longus autograft Dx-(S53.20XA) Traumatic rupture of radial collateral ligament Anesthesia- MAC , Regional PAT- 04/18 @ 10:30a Surgery Checklist Details Calendar done Clearance no Case # [id number] Authorization Jess Armendariz [phone] [id number] clinicals PAT Day/Time done PAT Orders to Christianity done Splint yes IPO 05/08 @ 11a [facility] SURGERY SCHEDULING SLIP Patient: Hollis Mascorro Date of : 1965 Date of Surgery: Next available Day of Surgery: [facility]: [place] Duration: 2hrs Type: Outpatient PAT: Yes - tele Med Clearance: No Anesthesia: MAC Block: Regional Position: Supine Table: Stretcher Arm Board: Roll-up arm table Radiology: Small C-Arm CPT Code: 92871 Consent: Left index finger MCP radial collateral ligament reconstruction using palmaris longus autograft FollowUp: Any P.A. in 5-7 days XRays: No OT Splint needed at first PO appointment: Yes - hand based radial gutter Special Requests Hand tray Arthrex 3mm tenodesis screws Krunal needles Looped 4-0 fiberwire [facility] [id number] Telephone encounter Note* Telephone Encounter - Rajiv Alvarez RN - 06/30/2024 10:55 AM EDT Pt returned call and given provider's message below with verbalized understanding. Patient agreeable. [facility]10-10-2024 Miscellaneous Notes* Telephone Encounter - Rajiv Alvarez RN - 06/30/2024 10:55 AM EDT Pt returned call and given provider's message below with verbalized understanding. Patient agreeable. * Telephone Encounter - Miin Peña LPN - 06/30/2024 9:38 AM EDT Left message to call office. 06/30/2024 9:38 AM Mini Peña LPN * Telephone Encounter - Rajiv Alvarez RN - 06/29/2024 4:42 PM EDT Left vm for patient to return call to nurse for provider's message. * Telephone Encounter - Kaden Diamond MD - 06/29/2024 1:31 PM EDT Okay. There may be some irritable bowel for some time. Increase fiber. Return for liquid diarrhea. * Telephone Encounter - Rajiv Alvarez RN - 06/29/2024 12:55 PM EDT Phoned patient and asked for update. Patient reports he is eating 4 norwegian yogarts a day now, instead of taking probiotic pill. Color of stools is darker now, and more formed. Mucous is gone from stools now. Having less stools now, only 1 stool today. Still has a lot of gas. No fever, nausea, vomiting, or abdominal pain. * Telephone Encounter - Kaden Diamond MD - 06/29/2024 9:03 AM EDT Update on patient's condition/symptoms please. * Telephone Encounter - Judith Eason RN - 06/27/2024 4:34 PM EDT Patient calling Dr. Diamond for advise. 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 Last treatment ended 9/27/24. Reports symptoms are returning. Reports loose stools, gas and bloating. Denies fever, abdominal pain nausea or vomiting. Eating healthy diet and taking probiotic. Uses [facility]. Please advise patient. Thank you. documented [facility]10-[facility]-2024 Telephone encounter Note * Telephone Encounter - Mini Peña LPN - 06/30/2024 9:38 AM EDT Left message to call office. 06/30/2024 9:38 AM Mini Peña LPN [facility]10-09-2024 Telephone encounter Note* Telephone Encounter - Rajiv Alvarez RN - 06/29/2024 4:42 PM EDT Left vm for patient to return call to nurse for provider's message. [facility]10-09-2024 Telephone encounter Note* Telephone Encounter - Kaden Diamond MD - 06/29/2024 1:31 PM EDT Okay. There may be some irritable bowel for some time. Increase fiber. Return for liquid diarrhea. [facility]10-09-2024 Telephone encounter Note* Telephone Encounter - Rajiv Alvarez RN - 06/29/2024 12:55 PM EDT Phoned patient and asked for update. Patient reports he is eating 4 norwegian yogarts a day now, instead of taking probiotic pill. Color of stools is darker now, and more formed. Mucous is gone from stools now. Having less stools now, only 1 stool today. Still has a lot of gas. No fever, nausea, vomiting, or abdominal pain. [facility]10-09-2024 Telephone encounter Note* Telephone Encounter - Kaden Diamond MD - 06/29/2024 9:03 AM EDT Update on patient's condition/symptoms please. [facility]10-07-2024 Telephone encounter Note* Telephone Encounter - Judith Eason RN - 06/27/2024 4:34 PM EDT Patient calling Dr. Diamond for advise. 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 Last treatment ended 06/17/24. Reports symptoms are returning. Reports loose stools, gas and bloating. Denies fever, abdominal pain nausea or vomiting. Eating healthy diet and taking probiotic. Uses [facility]. Please advise patient. Thank you. [facility]10-04-2024 NoteHNO ID: [id number] Author: KADEN DIAMOND MD Service: ? Author Type: Physician Type: Progress Notes Filed: 06/24/2024 13:13 Note Text: This note was created using [employer]. Subjective Patient presents with: Yearly Exam Immunizations: Flu vaccination Hollis Mascorro is a 58 year old male. [...] psoriatic arthritis and psoriasis. Dr. Levi Reyes, [facility]. Dr. Karl Nolasco, [facility] (hands) Dr. Robert Montoya, [facility], allergy. Review of Systems PAST MEDICAL HISTORY Diagnosis Date Chronic rhinitis 03/03/2006 Clostridium difficile colitis 05/20/2024 DJD (degenerative joint disease) of hip 05/12/2013 Dr. Moeller Mild intermittent asthma with acute exacerbation 10/21/2007 Osteoarthritis of hip 05/12/2013 Psoriasis 05/12/2013 Dr. Calloway Psoriatic arthritis (HCC) 09/21/2017 Dr. 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 Traumatic rupture of collateral ligament of left index finger 12/09/2023 [facility], [facility] PAST SURGICAL HISTORY Procedure Laterality Date ANKLE LEFT OP SURGERY Left 07/2015 COLONOSCOPY FLX DX W/COLLJ SPEC WHEN PFRMD 04/23/2020 Colonoscopy TOTAL HIP REPLACEMENT Left 11/28/2021 FAMILY HISTORY Problem Relation Age of Onset Cancer Mother 67 lung cancer Hypertension Mother Arthritis Mother psoriatic GI Father diverticulitis Heart Father [place] @ 81 years COPD Father driscoll's lung [...] Clostridium difficile colitis - ICD9: 008.45, ICD10: A04 (more content not included)...[facility]10-04-2024 History of Present illness Narrative* Kaden Diamond MD - 06/24/2024 11:41 AM EDT This note was created using NoteWriter. Subjective Patient presents with: Yearly Exam Immunizations: Flu vaccination Hollis Mascorro is a 58 year old male. He just recovered from C dificile colitis with repeat treatmentcompleted. He was taking probiotics. His labs were mostly normal and CT of the abdomen and pelvis non specific. He gets allergy shots weekly. There are plans to do left index finger surgery in September and another hip replacement down the line. His medications are from his specialists: Dr. Bam Raines for asthma Dr.. Catherine Preciado for psoriatic arthritis and psoriasis. Dr. Levi Reyes, [facility]. Dr. Karl Nolasco, [facility] (hands) Dr. Robert Montoya, [facility], allergy. Review of Systems PAST MEDICAL HISTORY Diagnosis Date Chronic rhinitis 03/03/2006 Clostridium difficile colitis 05/20/2024 DJD (degenerative joint disease) of hip 05/12/2013 Dr. Moeller Mild intermittent asthma with acute exacerbation 10/21/2007 Osteoarthritis of hip 05/12/2013 Psoriasis 05/12/2013 Dr. Calloway Psoriatic arthritis (HCC) 09/21/2017 Dr. 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 Traumatic rupture of collateral ligament of left index finger 12/09/2023 [facility] PAST SURGICAL HISTORY Procedure Laterality Date ANKLE LEFT OP SURGERY Left 07/2015 COLONOSCOPY FLX DX W/COLLJ SPEC WHEN PFRMD 04/23/2020 Colonoscopy TOTAL HIP REPLACEMENT Left 11/28/2021 FAMILY HISTORY Problem Relation Age of Onset Cancer Mother 67 lung cancer Hypertension Mother Arthritis Mother psoriatic GI Father diverticulitis Heart Father [place] @ 81 years COPD Father driscoll's lung [...] Size: Large Adult) Pulse 70 Temp 36.7 C (98.1 F) Resp 12 Ht 175.3 cm (5' 9) Wt 87.9 kg (193 lb 12.6 oz) SpO2 97% BMI 28.62 kg/m Physical Exam HENT: Head: Normocephalic and atraumatic. [...] and benefit of weight loss. BMI 28.62 kg/(m^2) - Risks/benefits of prostate cancer screening discussed. [...] 20 VALENT (PREVNAR 20) Kaden Diamond MD [facility] Tele[facility] encounter Note * Telephone Encounter - Dena Jameson LPN - 06/07/2024 3:28 PM EDT Patient notified, verbalized understanding. Dena Jameson LPN [facility]09-17-2024 Miscellaneous Notes* Telephone Encounter - Dena Jameson LPN - 06/07/2024 3:28 PM EDT Patient notified, verbalized understanding. Dena Jameson LPN * Telephone Encounter - Naomi Garcia APRN.CNS - 06/07/2024 3:19 PM EDT Appears this is the first recurrence. Repeat vancomycin x 10 days. Rx sent. He should let us know how he is doing following the treatment or if not improving while taking the treatment. * Telephone Encounter - Jess Lyman RN - 06/07/2024 3:08 PM EDT Patient calls and states that he had c-diff a couple of weeks ago and was put on antibiotic for this. Patient states that his last dose of Vancomycin was on the weekend on 05/28. Patient reports thathe is starting to not feel well again. Patient noticed that the mucous was back in stool yesterday.Patient has been having a lot of gas and he is starting to feel not well again. Please review and advise, Jess Lyman RN [facility] Telephone encounter Note * Telephone Encounter - Naomi Garcia APRN.CNS - 06/07/2024 3:19 PM EDT Appears this is the first recurrence. Repeat vancomycin x 10 days. Rx sent. He should let us know how he is doing following the treatment or if not improving while taking the treatment. [facility] Telephone encounter Note* Telephone Encounter - Jess Lyman RN - 06/07/2024 3:08 PM EDT Patient calls and states that he had c-diff a couple of weeks ago and was put on antibiotic for this. Patient states that his last dose of Vancomycin was on the weekend on 05/28. Patient reports thathe is starting to not feel well again. Patient noticed that the mucous was back in stool yesterday.Patient has been having a lot of gas and he is starting to feel not well again. Please review and advise, Jess Lyman RN [facility]09-06-2024 History of Present illness Narrative* Monique Mercado, RT(R) - 05/27/2024 11:00 AM EDT Radiology Service Progress Note DATE OF SERVICE: May 27, 2024 TIME: 3:46 PM PATIENT IDENTITY VERIFICATION COMPLETED USING TWO (2) STANDARD IDENTIFIERS: Name and Date of confirmed by patient verbally. FALL SCREENING: Has the patient had 2 falls in the last year or 1 fall with injury or currently using an Ambulatory Assistive Device (Walker, Cane, Wheelchair, Crutches, etc.)? No PATIENT GENDER DATA: Male PATIENT RELEVANT IMPLANT DATA REVIEWED: Yes PATIENT PRESENTS WITH AN IMPLANTABLE OR ATTACHED PASTRY ARTIST: No ALLERGIES: Reviewed and unchanged CONTRAST ALLERGY: NO. EXAM: CT -CONTRAST INDUCED NEPHROPATHY RISK FACTORS: Not applicable CREATININE: Creatinine Date Value Ref Range Status 05/17/2024 0.99 0.73 - 1.22 mg/dL Final Estimated Glomerular Filtration Rate Date Value Ref Range Status 05/17/2024 89 >=60 mL/min/1.73m Final Comment: Estimated Glomerular Filtration Rate (eGFR) is calculated using the 2020 CKD-EPI creatinine equation. This equation utilizes serum creatinine, sex, and age as parameters. The creatinine assay has traceable calibration to isotope dilution- mass spectrometry. Refer to KDIGO guidelines for clinical interpretation. In patients with unstable renal function, e.g. those with acute kidney injury, the eGFRmay not accurately reflect actual GFR. P.O.C.T. RESULTS: POC done: Yes, See Lab Tab May 27, 2024 TREATMENT: N/A PERIPHERAL IV DATA: Ambulatory: A peripheral IV was started in the Left antecubital site with a Angio cath: 22 gauge. RADIOLOGY DEPARTMENT: CT; Exam(s) Completed: Abdomen/Pelvis SIGNATURE: RADHA Lewis) PATIENT NAME: Hollis Mascorro DATE: May 27, 2024 TIME: 3:46 PM documented in this encounterK[facility]24 NoteHNO ID: [id number] Author: MONIQUE MERCADO RT(R) Service: ? Author Type: Conveyor Man Type: Progress Notes Filed: 05/27/2024 15:46 Note Text: Radiology Service Progress Note DATE OF SERVICE: May 27, 2024 TIME: 3:46 PM PATIENT IDENTITY VERIFICATION COMPLETED USING TWO (2) STANDARD IDENTIFIERS: Name and Date of confirmed by patient verbally. FALL SCREENING: Has the patient had 2 falls in the last year or 1 fall with injury or currently using an Ambulatory Assistive Device (Walker, Cane, Wheelchair, Crutches, etc.)? No PATIENT GENDER DATA: Male PATIENT RELEVANT IMPLANT DATA REVIEWED: Yes PATIENT PRESENTS WITH AN IMPLANTABLE OR ATTACHED PASTRY ARTIST: No ALLERGIES: Reviewed and unchanged CONTRAST ALLERGY: NO. EXAM: CT -CONTRAST INDUCED NEPHROPATHY RISK FACTORS: Not applicable CREATININE: Creatinine Date Value Ref Range Status 05/17/2024 0.99 0.73 - 1.22 mg/dL Final Estimated Glomerular Filtration Rate Date Value Ref Range Status 05/17/2024 89 >=60 mL/min/1.73m? Final Comment: Estimated Glomerular Filtration Rate (eGFR) is calculated using the 2020 CKD-EPI creatinine equation. This equation utilizes serum creatinine, sex, and age as parameters. The creatinine assay has traceable calibration to isotope dilution-mass spectrometry. Refer to KDIGO guidelines for clinical interpretation. In patients with unstable renal function, e.g. those with acute kidney injury, the eGFR may not accurately reflect actual GFR. P.O.C.T. RESULTS: POC done: Yes, See Lab Tab May 27, 2024 TREATMENT: N/A PERIPHERAL IV DATA: Ambulatory: A peripheral IV was started in the Left antecubital site with a Angio cath: 22 gauge. RADIOLOGY DEPARTMENT: CT; Exam(s) Completed: Abdomen/Pelvis SIGNATURE: Monique Baer RT(R) PATIENT NAME: Hollis Mascorro DATE: May 27, 2024 TIME: 3:46 [facility]08-31-2024 Telephone encounter Note* Telephone Encounter - Emelina Black LPN - 05/21/2024 10:31 AM EDT Spoke with pt and information listed below given. Pt verbalizes understanding. Pt reports already starting to feel better. Emelina Black LPN [facility]08-[facility] Miscellaneous Notes* Telephone Encounter - Emelina Black LPN - 05/21/2024 10:31 AM EDT Spoke with pt and information listed below given. Pt verbalizes understanding. Pt reports already starting to feel better. Emelina Black LPN * Telephone Encounter - Judith Eason RN - 05/21/2024 8:44 AM EDT Images from the original note were not included. Attempted to contact patient. No answer. Voicemail message left to call PCP office to ensure he is aware message. Kaden Diamond MD 05/20/2024 1:07 PM EDT Result(s) viewed by patient: Yes. Antibiotic associated inflammation of colon. Advise ER for worsening symptoms especially abdominal pain, fever. Contact precautions and frequent hand washing. Hydrate well. Do not take anti diarrhea medication. Start Vancomycin 125 mg 4x per day x 10 days. [facility] in this [facility]24 Telephone encounter Note * Telephone Encounter - Judith Eason RN - 05/21/2024 8:44 AM EDT Images from the original note were not included. Attempted to contact patient. No answer. Voicemail message left to call PCP office to ensure he is aware message. Kaden Diamond MD 05/20/2024 1:07 PM EDT Result(s) viewed by patient: Yes. Antibiotic associated inflammation of colon. Advise ER for worsening symptoms especially abdominal pain, fever. Contact precautions and frequent hand washing. Hydrate well. Do not take anti diarrhea medication. Start Vancomycin 125 mg 4x per day x 10 days. [facility]08-26-[facility] Instructions* Patient Instructions* Kaden Diamond MD - 05/16/2024 7:50 PM EDT DO ALL LABS TOMORROW FASTING. NOTIFY LAB YOU ARE FASTING. documented in this encounterK[facility]08-26-2024 NoteHNO ID: [id number] Author: KADEN DIAMOND MD Service: ? Author Type: Physician Type: Progress Notes Filed: 05/17/2024 07:28 Note Text: This note was created using [employer]Games[employer]. Subjective Patient presents with: Abdominal Pain Hollis Mascorro is a 58 year old male with lower abdominal pressure, cramping, and mucosy diarrhea for one week. He attributed this to stress, as he gave a history of similar issues in the past treated with dicyclomine. [facility] ago, and was prescribed dicyclomine with some improvement. He denied unusual food intake, travel, or antibiotic usage. Review of Systems Constitutional: Negative for appetite change, fatigue and fever. Respiratory: Negative for shortness of breath. Cardiovascular: Negative. Gastrointestinal: Positive for abdominal distention. Negative for anal bleeding, blood in stool, constipation, nausea and vomiting. Genitourinary: Positive for difficulty urinating. Negative for dysuria and flank pain. Neurological: Negative for dizziness and light-headedness. 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 - budesonide (PULMICORT) 0.5 mg/2 mL nebulizer solution Use 0.5 mg via nebulizer once daily. - rOPINIRole (REQUIP) 0.25 mg tablet Take [...] facility-administered medications for this visit. Objective BP 98/68 (BP Site: Left Arm, BP Position: Sitting, BP Cuff Size: Large Adult) Pulse 68 Temp 36.7 ?C (98 ?F) (Temporal) Resp 16 Wt 84 kg (185 lb 3 oz) BMI (P) 26.76 kg/m? Physical Exam Constitutional: General: He is not in acute distress. Appearance: He is not ill-appearing. Cardiovascular: Heart sounds: Normal heart sounds. Pulmonary: Breath sounds: Normal breath sounds. Abdominal: General: Abdomen is flat. Bowel sounds are normal. Palpations: Abdomen is soft. There is no mass. Tenderness: There is abdominal tenderness in the right lower quadrant and suprapubic area. There is rebound. There is no guarding. Hernia: No hernia is present. Neurological: Mental Status: He is alert. Latest Ref Rng 05/16/2024 GLUCOSE UA (POCT) Negative mg/dL Negative BILIRUBIN UA (POCT) Negative Negative KETONE UA (POCT) Negative mg/dL Negative SPECIFIC GRAVITY UA (POCT) 1.005 - 1.030 1.020 HEMOGLOBIN/BLOOD UA (POCT) Negative Negative PH UA (POCT) 4.5 - 8.0 5.5 PROTEIN UA (POCT) Negative mg/dL Negative UROBILINOGEN UA (POCT) Normal E.U./dL 0.2 NITRITE UA (POCT) Negative Negative LEUKOCYTES UA (POCT) Negative Negative COLOR UA (POCT) Yellow CLARITY UA (POCT) Clear Assessment and Plan 1. Diarrhea, unspecified type - ICD9: 787.91, ICD10: R19.7 (primary diagnosis) - Labs tomorrow. If labs benign, treat diarrhea. - After the visit, on med reconciliation, he was prescribed clindamycin last month by some other provider. - COMPREHENSIVE METABOLIC PANEL - C. DIFFICILE PCR- Added late. Patient did not recall antibiotic prescription in March. 2. Abdominal pain, lower - ICD9: 789.09, ICD10: R10.30 History of IBS. See above. - COMPREHENSIVE METABOLIC PANEL - SEDIMENTATION RATE, WESTERGREN - C-REACTIVE PROTEIN 3. Urinary hesitancy - ICD9: 788.64, ICD10: R39.11 - PSA/PROSTATE SPECIFIC ANTIGEN SCREENING [facility]08-26-2024 History of Present illness Narrative* Kaden Diamond MD - 05/16/2024 7:30 PM EDT This note was created using NoteWriter. Subjective Patient presents with: Abdominal Pain Hollis Mascorro is a 58 year old male with lower abdominal pressure, cramping, and mucosy diarrhea forone week. He attributed this to stress, as he gave a history of similar issues in the past treated with dicyclomine. He went to [facility] ago, and was prescribed dicyclomine with some improvement. He denied unusual food intake, travel, or antibiotic usage. Review of Systems Constitutional: Negative for appetite change, fatigue and fever. Respiratory: Negative for shortness of breath. Cardiovascular: Negative. Gastrointestinal: Positive for abdominal distention. Negative for anal bleeding, blood in stool, constipation, nausea and vomiting. Genitourinary: Positive for difficulty urinating. Negative for dysuria and flank pain. Neurological: Negative for dizziness and light-headedness. ACTIVE PROBLEM LIST Chronic Rhinitis Toxic Effect of Venom(989.5) Mild Intermittent Asthma With Acute Exacerbation Osteoarthritis of Hip Psoriasis Psoriatic Arthritis (Hcc) Social History Tobacco Use Smoking status: Never Smokeless tobacco: Never Vaping Use Vaping status: Never Used Substance Use Topics Alcohol use: Yes Comment: occasional Drug use: No Current Outpatient Medications Medication Sig dicyclomine (BENTYL) 20 mg tablet Take 20 mg by mouth three times a day as needed. budesonide (PULMICORT) 0.5 mg/2 mL nebulizer solution [...] facility-administered medications for this visit. Objective BP 98/68 (BP Site: Left Arm, BP Position: Sitting, BP Cuff Size: Large Adult) Pulse 68 Temp 36.7 C (98 F) (Temporal) Resp 16 Wt 84 kg (185 lb 3 oz) BMI (P) 26.76 kg/m Physical Exam Constitutional: General: He is not in acute distress. Appearance: He is not ill-appearing. Cardiovascular: Heart sounds: Normal heart sounds. Pulmonary: Breath sounds: Normal breath sounds. Abdominal: General: Abdomen is flat. Bowel sounds are normal. Palpations: Abdomen is soft. There is no mass. Tenderness: There is abdominal tenderness in the right lower quadrant and suprapubic area. There isrebound. There is no guarding. Hernia: No hernia is present. Neurological: Mental Status: He is alert. Latest Ref Rng 05/16/2024 GLUCOSE UA (POCT) Negative mg/dL Negative BILIRUBIN UA (POCT) Negative Negative KETONE UA (POCT) Negative mg/dL Negative SPECIFIC GRAVITY UA (POCT) 1.005 - 1.030 1.020 HEMOGLOBIN/BLOOD UA (POCT) Negative Negative PH UA (POCT) 4.5 - 8.0 5.5 PROTEIN UA (POCT) Negative mg/dL Negative UROBILINOGEN UA (POCT) Normal E.U./dL 0.2 NITRITE UA (POCT) Negative Negative LEUKOCYTES UA (POCT) Negative Negative COLOR UA (POCT) Yellow CLARITY UA (POCT) Clear Assessment and Plan 1. Diarrhea, unspecified type - ICD9: 787.91, ICD10: R19.7 (primary diagnosis) - Labs tomorrow. If labs benign, treat diarrhea. - After the visit, on med reconciliation, he was prescribed clindamycin last month by some other provider. - COMPREHENSIVE METABOLIC PANEL - C. DIFFICILE PCR- Added late. Patient did not recall antibiotic prescription in March. 2. Abdominal pain, lower - ICD9: 789.09, ICD10: R10.30 History of IBS. See above. - COMPREHENSIVE METABOLIC PANEL - SEDIMENTATION RATE, WESTERGREN - C-REACTIVE PROTEIN 3. Urinary hesitancy - ICD9: 788.64, ICD10: R39.11 - PSA/PROSTATE SPECIFIC ANTIGEN SCREENING Kaden Diamond MD documented in this [facility]08-[facility]24 History of Present illness Narrative* Karl Nolasco MD - 05/09/2024 2:30 PM EDT Images from the original note were not included. [facility] [address] [place] [address] [place] [id number] Dept: [phone] Dept Chief Complaint Patient presents with New Patient LEFT Index finger injury 11/2023; [facility] Referral HPI Hollis Mascorro is a 58 y.o. right handed male that presents for evaluation of pain in his LEFT Index Finger. Symptoms have been present for 6 month(s) DOI 12/09/23. The symptoms started after after fingergot caught in a trap when handling a 1500lb steer. His finger was bent at an awkward angle, unsure of exact mechanism as things happened very fast. He tried shashi taping for a couple weeks but did not see improvement. He did attend formal OT for about 6 weeks to work on ROM. He feels he has functional ROM, but cannot make a tight fist without pain. Previous Treatments NSAIDs: No - Have not tried Injection: No - Has never received an injection Therapy: Yes - Worked with OT x6 weeks- improved ROM. Splinting: No - Has not tried any splinting Surgery: No - Has not had previous surgery on the symptomatic extremity MRI: Yes on disc- uploaded into [employer]. States that his index finger got twisted and turned inward towards his palm. Had immediate pain along the radial side of his MCP joint which is persisted over the last 6 months. No results found for: HGBA1C OBJECTIVE BP 110/70 Ht 5' 10 (1.778 m) Wt 187 lb (84.8 kg) BMI 26.83 kg/m Ortho Exam Focal soft tissue swelling and tenderness along the radial aspect of the index MCP joint. Gross laxity radial collateral ligament. Pulm is longus is present. IMAGING Plain films were reviewed from outside disc. MRI Left Hand no contrast 04/07/24- [facility] PROCEDURE none ASSESSMENT (S53.20XA) Traumatic rupture of radial collateral ligament 1. Traumatic rupture of radial collateral ligament LEFT Index Finger PLAN I discussed with Hollis the natural history, expected outcome, and risks/benefits of both operative and nonoperative management of his particular diagnosis relative to his age, activity level, previous treatment, and physical exam. Hollis had some excellent questions, all of which were answered to his satisfaction. Hollis has an incompetent radial collateral ligament his index MCP. He is now 6 months and. Could benefit from repair versus reconstruction. Understands surgery would yield limitations for 4 to 6 months. He is not sure if he is ready to commit. He will call if he is ready. Otherwise Tylenol and ibuprofen for pain. I had an extensive discussion with Mr. Hollis Mascorro regarding the natural history, etiology, and alf consequences of his condition. We discussed both operative and non operative treatment optionsand Hollis Mascorro elected to proceed with surgical intervention. I have discussed with Mr. Hollis Mascorro the potential complications, limitations, expectations, alternatives, and risks of the proposed surgical procedure. Risks discussed include but are not limited to the risk of infection, iatrogenic injury to normal neurovascular structures, persistent pain and disability, unsightly scar, stiffness, complex regional pain syndrome, malunion, non union, hardware failure, need for hardware removal, loss of limb, myocardial infarction, deep vein thrombosis, pulmonary embolism and even . We also discussed the potential risk of COVID-19 exposure or infection and how it could alter his post operative recovery course. He has had full opportunity to ask his questions. I have answered them all to his satisfaction. I feel that Mr. Hollis Mascorro does understand our discussion today and he is comfortable providing informed consent for the procedure. Follow-up: Hollis will followup with me on an as needed basis. 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 He knows to call the office with any questions or concerns in the interim. Future Imaging: NONE Karl Nolasco MD Hand and Upper Extremity Surgery [facility] Department of Orthopaedics and Sports Medicine 05/09/2024 (Please note that portions of this note may have been completed with a voice recognition program. Efforts were made to edit the dictations but occasionally words are mis-transcribed.) documented in this [facility]08-19-2024 Instructions* Patient Instructions* Jessica Torres ATC - 05/09/2024 2:30 PM EDT - Outpatient surgery at [place]. - Call the office when you are ready to schedule. documented in this [facility]07-23-2024 NoteHNO ID: [id number] Author: KADEN DIAMOND MD Service: ? Author Type: Physician Type: Progress Notes Filed: 04/12/2024 15:25 Note Text: This note was created using NoteWriter. Subjective Hollis Mascorro is a 58 year old male. He was working on a tool at home when he injured his right distal index finger on 04/05/24. He was treated in the ED for finger laceration, nail avulsion, distal phalanx fracture. He was using a finger spilint and was here for suture removal. Review of Systems Constitutional: Negative for fever. Hematological: Does not bruise/bleed easily. ACTIVE PROBLEM LIST Chronic Rhinitis Toxic Effect [...] Take 1 to 2 tablets at bedtime. montelukast (SINGULAIR) 10 mg tablet Take 1 tablet by mouth daily at bedtime. fluticasone (FLONASE) 50 mcg/actuation nasal spray Use 2 Sprays in each nostril once daily. Rinse mouth after use. BREO ELLIPTA 200-25 mcg/dose inhaler fexofenadine (RACHELL ALLERGY) 180 mg tablet Take 1 tablet by mouth once daily. methotrexate 2.5 mg tablet Take 2.5 mg by mouth one time only. 7 tablets once weekly FOLIC ACID ORAL Take 2 tablets by mouth once daily. Dextromethorphan-guaiFENesin (MUCINEX DM) 60-1,200 mg tab ER 12 hr Take by mouth. (Patient not taking: Reported on 04/12/2024) albuterol HFA (PROAIR HFA) 90 mcg/actuation inhaler Inhale 2 Puffs as instructed every 6 hours as needed. (Patient not taking: Reported on 12/15/2022) No current facility-administered medications for this visit. Objective BP 104/72 (BP Site: Left Arm, BP Position: Sitting, BP Cuff Size: Large Adult) Pulse 68 Temp 37 ?C (98.6 ?F) (Temporal) Resp 16 Wt 87.5 kg (192 lb 12.8 oz) BMI (P) 27.86 kg/m? Physical Exam Constitutional: General: He is not in acute distress. Appearance: He is not ill-appearing. Pulmonary: Effort: Pulmonary effort is normal. Musculoskeletal: Comments: Right index finger tip swollen, ecchymotic. Capillary refill within normal limits. Nail splint in place. 4 sutures removed without difficulty. Scant serosanguinous drainage noted. Assessment and Plan 1. Visit for suture removal - ICD9: V58.32, ICD10: Z48.02 (primary diagnosis) Removed.. 2. Laceration of right index finger without foreign body with damage to nail, subsequent encounter - ICD9: V58.89, ICD10: S61.310D Improved. - He was aware the new nail may be deformed. 3. Open nondisplaced fracture of distal phalanx of right index finger with routine healing, subsequent encounter - ICD9: V54.19, ICD10: S62.660D Continue splinting until better. 4. Psoriatic arthritis (HCC) - ICD9: 696.0, ICD10: L40.50 Labs need updating. - COMPLETE BLOOD COUNT - BASIC METABOLIC PANEL 5. Screening for lipid disorders - ICD9: V77.91, ICD10: Z13.220 Labs need updating. - LIPID PANEL BASIC Yearly check up recommended in 2 months. [facility]07-23-2024 History of Present illness Narrative* Kaden Diamond MD - 04/12/2024 2:46 PM EDT This note was created using NoteWriter. Subjective Hollis Mascorro is a 58 year old male. He was working on a tool at home when he injured his right distal index finger on 04/05/24. He was treated in the ED for finger laceration, nail avulsion, distal phalanx fracture. He was using a finger spilint and was here for suture removal. Review of Systems Constitutional: Negative for fever. Hematological: Does not bruise/bleed easily. ACTIVE PROBLEM LIST Chronic Rhinitis Toxic Effect [...] Take 1 to 2 tablets at bedtime. montelukast (SINGULAIR) 10 mg tablet Take 1 tablet by mouth daily at bedtime. fluticasone (FLONASE) 50 mcg/actuation nasal spray Use 2 Sprays in each nostril once daily. Rinse mouth after use. BREO ELLIPTA 200-25 mcg/dose inhaler fexofenadine (RACHELL ALLERGY) 180 mg tablet Take 1 tablet by mouth once daily. methotrexate 2.5 mg tablet Take 2.5 mg by mouth one time only. 7 tablets once weekly FOLIC ACID ORAL Take 2 tablets by mouth once daily. Dextromethorphan-guaiFENesin (MUCINEX DM) 60-1,200 mg tab ER 12 hr Take by mouth. (Patient not taking: Reported on 04/12/2024) albuterol HFA (PROAIR HFA) 90 mcg/actuation inhaler Inhale 2 Puffs as instructed every 6 hours as needed. (Patient not taking: Reported on 12/15/2022) No current facility-administered medications for this visit. Objective BP 104/72 (BP Site: Left Arm, BP Position: Sitting, BP Cuff Size: Large Adult) Pulse 68 Temp 37C (98.6 F) (Temporal) Resp 16 Wt 87.5 kg (192 lb 12.8 oz) BMI (P) 27.86 kg/m Physical Exam Constitutional: General: He is not in acute distress. Appearance: He is not ill-appearing. Pulmonary: Effort: Pulmonary effort is normal. Musculoskeletal: Comments: Right index finger tip swollen, ecchymotic. Capillary refill within normal limits. Nail splint in place. 4 sutures removed without difficulty. Scant serosanguinous drainage noted. Assessment and Plan 1. Visit for suture removal - ICD9: V58.32, ICD10: Z48.02 (primary diagnosis) Removed.. 2. Laceration of right index finger without foreign body with damage to nail, subsequent encounter - ICD9: V58.89, ICD10: S61.310D Improved. - He was aware the new nail may be deformed. 3. Open nondisplaced fracture of distal phalanx of right index finger with routine healing, subsequent encounter - ICD9: V54.19, ICD10: S62.660D Continue splinting until better. 4. Psoriatic arthritis (HCC) - ICD9: 696.0, ICD10: L40.50 Labs need updating. - COMPLETE BLOOD COUNT - BASIC METABOLIC PANEL 5. Screening for lipid disorders - ICD9: V77.91, ICD10: Z13.220 Labs need updating. - LIPID PANEL BASIC Yearly check up recommended in 2 months. Kaden Diamond MD [facility] History of Present illness Narrative* Kaden Diamond MD - 12/16/2022 10:37 AM EDT This note was created using [employer]. Subjective Patient presents with: Nasal Congestion Hollis Mascorro is a 57 year old male is [...] mouth. BREO ELLIPTA 200-25 mcg/dose inhaler fexofenadine (RACHELL [...] ER 60 MG-1,200 MG TAB,EXTEND RELEASE,12HR Kaden Diamond MD documented in [facility]-[address] Encinas [facility] October 13, 2022 9:04pm Note Date/Time October 13, 2022 8 :03pm [facility] Medical Records Department [address] [place] [address] Emergency Department Summary 10/13/22 MR#: [id number] Acct: [id number] Name: HOLLIS MASCORRO Rep #:[id number] : [id number] 56 From: José Encinas MD PCP: Dr. Kaden Diamond MD Status:R EG ER Location: ED HPI History of Present Illness Chief Complaint: Laceration Narrative Narrative: 56-year-old male who denies significant past medical history, [id number], presents with laceration to his left forearm that he sustained approximately 5 hours ago. He states he was at work, using a safety knife, trying to open a bottle. As he was doing so, the bottle broke, and the safety knife lacerated his left forearm. He denies other injury. No significant past medical history. He put Band-Aids on his laceration and continue to work, he presents to the emergency department for closure of his laceration as he states it was still seeping a small amount of blood. He is unsure of his last tetanus immunization but thinks it may have been in the last 10 years but is not sure. [facility] Medical History Acute pharyngitis, unspecified Arthritis Knee pain URI (upper respiratory infection) Home Medications folic acid 1 mg tablet 1 mg PO DAILY 07/31/20 [History Last Taken Unknown] fluticasone furoate 200 mcg-vilanterol 25 mcg/dose inhalation powder inhalation 11/16/20 [History Last Taken Unknown] methotrexate sodium 2.5 mg tablet mg PO 11/16/20 [History Last Taken Unknown] pramipexole 0.25 mg tablet 0.25 mg PO QHS 08/28/22 [History Last Taken Unknown] Allergy/AdvReac Type Severity Reaction Status Date / Time bee venom protein (honey bee) Allergy Mild unknown Verified 10/13/22 17:59 Latex, Natural Rubber Allergy Mild unknown Verified 10/13/22 17:59 Social History Smoking Status: Never smoker ROS ROS ED ROS Narrative Constitutional: No fever, no chills. HEENT: No sore throat. No neck pain. No loss of vision. No rhinorrhea. Cardiovascular: No chest pain. No palpitations. No pedal edema. Respiratory: No cough, no shortness of breath. Abdominal: No abdominal pain. No nausea. No vomiting. Genitourinary: No dysuria. No hematuria. Musculoskeletal: No myalgias. No arthralgias. Neurologic: No headaches. No dizziness. No lightheadedness. Skin: No rash. No change in color. Laceration to left forearm, distal Psychiatric: No depression. No anxiety. EXAM Physical Exam Narrative Exam Narrative: Afebrile. Vital signs noted. HEENT: Normocephalic. Atraumatic. PERRL, EOMI. Neck soft and supple. No pointtenderness or step off. Cardiovascular: Regular rate and rhythm. No murmurs, rubs, or gallops appreciated. Respiratory: No tachypnea. Lungs clear to auscultation bilaterally. Gastrointestinal: Abdomen soft, nontender, with normoactive bowel sounds. No rebound or guarding. Neurological: Awake. Alert. Nonfocal, nonlateralizing. Skin: No rash. Normal color. No pallor. 3 cm laceration, more linear in nature on distal radius area. Musculoskeletal: No pedal edema. Full range of motion extremities. No tendon rupture through full range of motion of wrist or fifth digit flexion and extension. He may have a small laceration in the muscle, but no active bleeding. Const Vital Signs: 10/13/22 17:59 Temperature 97 F L Temperature Source Temporal Pulse Rate 84 Respiratory Rate 18 Blood Pressure 130/77 H Blood Pressure Mean 94 Pulse Ox 95 Oxygen Delivery Method Room Air MDM MDM MDM Narrative Medical decision making narrative: As this is a work-related injury, he will follow-up with the [facility]. He wastold of the risk of infection and scarring and acknowledges an understanding. He was immunized with Boostrix 0.5 mL intramuscularly. Wound closure will be performed. See procedure note for detail. I do not feel x-ray is indicated to look for foreign body. Procedure note: Lidocaine 1% was used as local anesthetic. Area was irrigated with chlorhexidine normal saline a moderate amount. There is no evidence of foreign body, no apparent tendon involvement. Wound edges approximated with 8 simple interrupted sutures using five-point 0 nylon. Patient tolerated procedure well. Patient will have his sutures removed in 7 to 10 days. He was told to look for signs of infection including redness, drainage of pus from the wound. He will return to work tomorrow and keep the area clean, dry, and covered. I feel he bedischarged safely home with follow-up. Return instructions to the emergency department were reviewed. Disposition is discharged home in stable condition. Discharge Plan Triage Chief Complaint: Laceration ED Provider: José Encinas Dx/Rx/DC Orders Clinical Impression: Laceration of forearm, left Instructions: ED Laceration Extremity Prescriptions: No Action folic acid 1 mg tablet 1 mg PO DAILY fluticasone furoate-vilanterol 200-25 mcg/dose blister with device INHALATION methotrexate sodium 2.5 mg tablet PO pramipexole 0.25 mg tablet 0.25 mg PO QHS Primary Care Provider: Kaden Diamond Referrals: Kaden Diamond MD [Primary Care Provider] - [facility] [Non-Staff] - 10 Day for suture removal Disposition Disposition: Home, Self Care What to do if you have Problems For any increased pain, shortness of breath, bleeding, nausea or vomiting, chestpain, or any unexpected problems, contact your Primary Care Provider. Call [facility] ([phone]) or report to the closest Emergency Room. Call 911 if necessary. 10/13/222103 <Electronically signed by José Encnias MD> Cosigner Signature (if applicable): CC: Dr. Kaden Diamond MD ~ Signed [facility] Work Phone: 1(185) 510-597009-21-2022 Instructions* Patient Instructions* Jessica Vegas APRN.CNP - 06/11/2022 1:46 PM EDT Over the counter medications: ibuprofen (Motrin , Advil ) or naproxen (Aleve ), take routinely for the next 3-4 days. Can also try topical medications such as Icy Hot, Biofreeze or Lidocaine. Non-medication measures: Ice for localized pain/tenderness and/or heat. Splinting with pillow when coughing or deep breathing documented in this encounter[facility]09-[facility]22 History of Present illness Narrative* Jessica Vegas APRN.CNP - 06/11/2022 1:38 PM EDT CC: Patient presents with: Immunizations: Flu vaccination HPI Hollis Mascorro is a 56 year old male who presents today for rib pain. Patient reports his rib on the right side popped out of place due to coughing fits from asthma. He went to chriopractor initially who popped it back into place however it has come out of place several more times since then. He isable to pop it back in. Reports constant pain right postero lateral lower rib, aggravated by deepbreathing and coughing. He has not taken anything for the pain or cough. He is using inhalers and medications prescribed by his internal revenue agent and has follow-up scheduled with Dr. Linda on Thursday. Denies fever, chills, SOB, chest pain, palpitations, hemoptysis, wheezing. REVIEW OF SYSTEMS See [facility] PAST MEDICAL HISTORY Diagnosis Date Asthma ASTHMA [...] MEDICATIONS BREO ELLIPTA 200-25 mcg/dose inhaler fexofenadine (RACHELL [...] Mother psoriatic GI Father diverticulitis Heart Father [place] @ 81 years COPD Father driscoll's lung [...] asthma. Recommend starting Mucinex OTC. Follow-up with internal revenue agent as scheduled 3. Need for influenza vaccination - ICD9: V04.81, ICD10: Z23 - INFLUENZA VACCINE QUADRIVALENT 6 MO - 64 YRS IM Prescription instructions reviewed with patient as applicable. Potential red flag symptoms discussed with the patient. Reviewed appropriate action plan to take if red flag symptoms occur. Patient agreeable to treatment plan. Jessica Vegas APRN.CNP [facility] No data available for this section [facility] Evaluation noteNo assessment information available [facility] Work Phone: Evaluation note* Diagnosis Rib pain on right side- Primary Chest pain, unspecified Chronic cough Cough Need for influenza vaccination Need for prophylactic vaccination and inoculation against influenza documented in this encounter [facility] note* Diagnosis Onset Date Resolution Status Acute pharyngitis, unspecified acute URI (upper respiratory infection) acute [facility] Work Phone: Evaluation note* Diagnosis Onset Date Resolution Status Acute pharyngitis, unspecified acute URI (upper respiratory infection) acute Laceration of left forearm a cute [facility] Work Phone: Evaluation note* Diagnosis Rhinosinusitis- Primary Unspecified sinusitis (chronic) Mild intermittent asthma with acute exacerbation Unspecified asthma, with exacerbation documented in this encounter [facility] note* Diagnosis Onset Date Resolution Status Acute sinusitis acute [facility] Work Phone: Evaluation note* Diagnosis Onset Date Resolution Status Injury of left index finger acute Injury of left middle finger acute [facility] Work Phone: Evaluation note* Diagnosis Visit for suture removal- Primary Encounter for removal of sutures Laceration of right index finger without foreign body with damage to nail, subsequent encounter Open nondisplaced fracture of distal phalanx of right index finger with routine healing, subsequent encounter Psoriatic arthritis (HCC) Psoriatic arthropathy Screening for lipid disorders documented in this encounter [facility] note* Diagnosis Diarrhea, unspecified type- Primary Abdominal pain, lower Abdominal pain, other specified site Urinary hesitancy documented in this encounter [facility] note* Diagnosis Abdominal pain, lower- Primary Abdominal pain, other specified site Diarrhea, unspecified type documented in this encounter [facility] note* Diagnosis Traumatic rupture of radial collateral ligament documented in this encounter [facility] note* Diagnosis Clostridium difficile colitis- Primary Intestinal infection due to clostridium difficile documented in this encounter [facility] note* Diagnosis Abdominal pain, lower Abdominal pain, other specified site Diarrhea, unspecified type [facility] Diagnosis Clostridium difficile colitis Intestinal infection due to clostridium difficile [facility]* Diagnosis Rib pain on right side Chest pain, unspecified [facility]* Diagnosis Routine medical exam- Primary Routine general medical examination at a health care facility Need for influenza vaccination Need for prophylactic vaccination and inoculation against influenza Screening for depression Encounter for screening examination for other mental health and behavioral disorders Clostridium difficile colitis Intestinal infection due to clostridium difficile Psoriatic arthritis (HCC) Psoriatic arthropathy Mild intermittent asthma with acute exacerbation Unspecified asthma, with exacerbation Need for vaccination Need for prophylactic vaccination and inoculation against unspecified single disease [facility]* Diagnosis Traumatic rupture of radial collateral ligament- Primary Traumatic rupture of unspecified radial collateral ligament, initial encounter documented in this encounter [facility] note* Diagnosis Traumatic rupture of radial collateral ligament- Primary Traumatic rupture of unspecified radial collateral ligament, initial encounter documented in this encounter [facility] note* Diagnosis Traumatic rupture of radial collateral ligament- Primary Traumatic rupture of unspecified radial collateral ligament, initial encounter [facility] Diagnosis Traumatic rupture of radial collateral ligament- Primary Traumatic rupture of unspecified radial collateral ligament, initial encounter [facility] Diagnosis Traumatic rupture of radial collateral ligament- Primary Traumatic rupture of unspecified radial collateral ligament, initial encounter [facility]* Diagnosis Traumatic rupture of radial collateral ligament- Primary Traumatic rupture of unspecified radial collateral ligament, initial encounter [facility] Diagnosis S/P ligament repair- Primary [facility]* Diagnosis Traumatic rupture of radial collateral ligament- Primary S/P ligament repair [facility]* Diagnosis Traumatic rupture of radial collateral ligament [facility]* Diagnosis Traumatic rupture of radial collateral ligament- Primary S/P ligament repair [facility] Diagnosis Traumatic rupture of radial collateral ligament- Primary S/P ligament repair [facility] instructions No data available for this section [facility] Discharge instructionsAdditional Instructions Keep the area dry and clean. Follow-up your doctor in outpatient setting. Return to worsening symptoms or any concerns. Do Dreft soaks as we discussed here. If you develop surrounding redness purulent drainage out of the wound your whole finger becomes very swollen red and painful you need to return to the emergency [facility] Work Phone: Reason for referral (narrative)* Diagnostic Procedure Only (Urgent) - Closed Specialty Diagnoses / Procedures Referred By Carole reece Referred To Contact XR IMAGING Diagnoses Rib pain on right side Procedures XR RIBS/CHEST 3V AP RIB/OBLS/CXR RIGHT RADEX RIBS UNI W/POSTEROANT CH MINIMUM 3 VIEWS Jessica Vegas APRN.CNP [address] [place] [address] Xr Imaging Referral ID Status Reason Start Date Expiration Date V isits Requested Visits Authorized [id number] Closed Auto-Generate d Referral 06/11/2022 07/11/2023 1 1 [facility] for referral (narrative)* Diagnostic Procedure Only (Urgent) - Closed Specialty Diagnoses / Procedures Referred By Contac t Referred To Contact XR IMAGING Diagnoses Rib pain on right side Procedures XR RIBS/CHEST 3V AP RIB/OBLS/CXR RIGHT RADEX RIBS UNI W/POSTEROANT CH MINIMUM 3 VIEWS Jessica Martinez, CRT.PUBLICATIONS DESIGNER [address] [place] [address] [place] [address] Referral ID Status Reason Start Date Expiration Date V isits Requested Visits Authorized [id number] Closed Auto-Generate d Referral 06/11/2022 07/11/2023 1 1 [facility] for referral (narrative)No reason for referral information availableWProvidence [facility] Work Phone: [facility] Narrative* Diagnostic Procedure Only (Urgent) - Closed Specialty Diagnoses / Procedures Referred By Contac t Referred To Contact XR IMAGING Diagnoses Rib pain on right side Procedures XR RIBS/CHEST 3V AP RIB/OBLS/CXR RIGHT RADEX RIBS UNI W/POSTEROANT CH MINIMUM 3 VIEWS Jessica Martinez APRN.PUBLICATIONS DESIGNER [address] [place] [address] [place] [address] Referral ID Status Reason Start Date Expiration Date V isits Requested Visits Authorized [id number] Closed Auto-Generate d Referral 06/11/2022 07/11/2023 1 1 [facility] for visit Narrative* Auth/Cert (Routine) Specialty Diagnoses / Procedures Referred By Contac t Referred To Contact Diagnoses Traumatic rupture of unspecified radial collateral ligament, initial encounter Procedures MN RCNSTJ COLTRL LIGM MTCARPHLNGL 1 W/TDN/FSCAL GRF LEFT INDEX FINGER METACARPOPHALANGEAL RADIAL COLLATERAL LIGAMENT RECONSTRUCTION USING PALMARIS LONGUS AUTOGRAFT Karl Nolasco MD [address] [facility] [address] [place] [address] Phone: tel: fax: Referral ID Status Reason Start Date Expiration Date Visits Re quested Visits Authorized 07/26/2024 1 1 [facility] for visit Narrative* Therapy (Routine) - Authorized Specialty Diagnoses / Procedures Referred By Carole reece Referred To Contact Occupational Therapy Diagnoses Traumatic rupture of unspecified radial collateral ligament, subsequent encounter Procedures MN OFFICE/OUTPATIENT [facility] 60 MINUTES Karl Nolasco MD [address] [facility] [address] [place] [address] Phone: tel: fax: [facility] Therapy at [address] [place] [address] Phone: tel: fax: Referral ID Status Reason Start Date Expiration Date Visits Requested Visits Authorized Authorized Eval and Treat 04/27/2025 04/27/2026 40 40 [facility] Summary Purpose Family History No Family History Records FoundNo Family History Records FoundNo Family History Records FoundNo Family History Records Found Advance Directives No Advanced Directives Records Found Advance Directive Response Recorded Date/ Time Living Will No October 13 7:57pm Power of Mop Worker No October 13, 2022 7:57pm Advance Directive Response Recorded Date/ Time Living Will No October 13 8:57pm Power of Mop Worker No October 13, 2022 8:57pm Date Activated Date Inactivated Comments 05/02/2025 6:05 AM 05/02/2025 1:16 PM Date Activated Date Inactivated Comments 05/02/2025 6:05 AM 05/02/2025 1:16 PM Advance Directive Response Recorded Date/ Time Do you have a Healthcare Power of Mop Worker? 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 SORE THROAT laceration Reason for Visit Acute pharyngitis, u nspecified URI (upper respiratory infection) Chief Complaint PAIN- COPY PCP Psoriatic arthritis mutilans SORE THROAT laceration OBWC/SUTURE REMOVAL/GOJO BWC/WOUND CHECK/GOJO 1 W FU Reason for Visit Acute pharyngitis, u nspecified URI (upper respiratory infection) Laceration of left forearm Chief Complaint PAIN- COPY PCP Psoriatic arthritis mutilans SORE THROAT laceration OBWC/SUTURE REMOVAL/GOJO BWC/WOUND CHECK/GOJO 1 W FU 1 W FU STANDING ORDER Reason for Visit Acute pharyngitis, u nspecified URI (upper respiratory infection) Laceration of left forearm Chief Complaint BWC/WOUND CHECK/GOJO 1 W FU 1 W FU STANDING ORDER 2 W FU SINUSITIS S/O- PAIN- COPY PCP Chief Complaint S/O- PAIN- COPY PCP SO- PAIN- COPY PCP Chief Complaint SO- PAIN- COPY PCP SINUS PAIN/PRESSURE S/O- PAIN- COPY PCP Reason for Visit Acute sinusitis Chief Complaint S/O- PAIN- COPY PCP S/O- PAIN- COPY PCP Chief Complaint S/O- PAIN- COPY PCP 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/ LFT HAND hand injury- LEFT Reason for Visit Injury of left index finger Injury of left middle finger Chief Complaint Admit Date S/O- PAIN- COPY PCP October 05, 2024 2 :08pm Chief Complaint Admit Date S/O- PAIN- COPY PCP March 27, 2025 1:48p m Chief Complaint Admit Date S/O- PAIN- COPY PCP March 27, 2025 1:48p m S/O- PAIN- COPY PCP May 26, 2025 2:03pm RADIAL RUPTURE RX HERE June 15, 2 025 1:30pm lac June 17, 2025 5:24pm Reason for Referral Specialty Diagnoses / Procedures Referred By Carole reece Referred To Contact CT IMAGING Diagnoses Abdominal pain, lower Diarrhea, unspecified type Procedures CT ABD/PEL W IVCON CT ABD & PELVIS W/CONTRAST Kaden Diamond MD [address] [place] [id number] [place] [address] Referral ID Status Reason Start Date Expiration Date Visits Requested Visits Authorized [id number] Authorized Auto-Generat ed Referral 05/18/2024 06/17/2025 1 1 Specialty Diagnoses / Procedures Referred By Carole reece Referred To Contact Ent - Otolaryngology Diagnoses Rhinosinusitis Procedures CONSULT TO ENT Kaden Diamond MD [address] [place] [id number] Referral ID Status Reason Start Date Expiration Date Visits Requested Visits Authorized [id number] Ref Not Required PCP Requested Referral 12/15/2022 12/15/2023 1 1 Additional Source Comments (unrecognized sect ion and content) No Status Records FoundNo Status Records FoundNo Status Records FoundNo Status Records Found INFORMATION SOURCE (unrecogn ized section and content) DATE CREATED AUTHOR 11/13/2021 [facility] ([place]) DATE CREATED AUTHOR AUTHOR'S ORGANIZ ATION 07/02/2024 [facility] DATE CREATED AUTHOR AUTHOR'S ORGANIZ ATION 06/26/2025 [facility] DATE CREATED AUTHOR AUTHOR'S ORGANIZ ATION 07/01/2025 [facility] Goals (unrecognized section and content) Goals may be documented in a n alternate section Source Comments (unrecognize d section and content) In the event this informatio n is protected by the Federal Confidentiality of Alcohol and Drug Abuse Patient Records regulations: The Federal rules restrict any use of the information to criminally investigate or prosecute any alcohol or drug abuse patient.[facility] HealthIn the event this information is protected by the Federal Confidentiality of Alcohol and Drug Abuse Patient Records regulations: The Federal rules restrict any use of the information to criminally investigate or prosecute any alcohol or drug abuse patient.[facility] HealthIn the event this information is protected by the Federal Confidentiality of Alcohol and Drug Abuse Patient Records regulations: The Federal rules restrict any use of the information to criminally investigate or prosecute any alcohol or drug abuse patient.[facility] HealthIn the event this information is protected by the Federal Confidentiality of Alcohol and Drug Abuse Patient Records regulations: The Federal rules restrict any use of the information to criminally investigate or prosecute any alcohol or drug abuse patient.[facility] HealthIn the event this information is protected by the Federal Confidentiality of Alcohol and Drug Abuse Patient Records regulations: The Federal rules restrict any use of the information to criminally investigate or prosecute any alcohol or drug abuse patient.[facility] HealthIn the event this information is protected by the Federal Confidentiality of Alcohol and Drug Abuse Patient Records regulations: The Federal rules restrict any use of the information to criminally investigate or prosecute any alcohol or drug abuse patient.[facility] HealthIn the event this information is protected by the Federal Confidentiality of Alcohol and Drug Abuse Patient Records regulations: The Federal rules restrict any use of the information to criminally investigate or prosecute any alcohol or drug abuse patient.[facility] HealthIn the event this information is protected by the Federal Confidentiality of Alcohol and Drug Abuse Patient Records regulations: The Federal rules restrict any use of the information to criminally investigate or prosecute any alcohol or drug abuse patient.[facility] HealthIn the event this information is protected by the Federal Confidentiality of Alcohol and Drug Abuse Patient Records regulations: The Federal rules restrict any use of the information to criminally investigate or prosecute any alcohol or drug abuse patient.[facility] HealthIn the event this information is protected by the Federal Confidentiality of Alcohol and Drug Abuse Patient Records regulations: The Federal rules restrict any use of the information to criminally investigate or prosecute any alcohol or drug abuse patient.[facility] HealthIn the event this information is protected by the Federal Confidentiality of Alcohol and Drug Abuse Patient Records regulations: The Federal rules restrict any use of the information to criminally investigate or prosecute any alcohol or drug abuse patient.[facility] HealthIn the event this information is protected by the Federal Confidentiality of Alcohol and Drug Abuse Patient Records regulations: The Federal rules restrict any use of the information to criminally investigate or prosecute any alcohol or drug abuse patient.[facility] HealthIn the event this information is protected by the Federal Confidentiality of Alcohol and Drug Abuse Patient Records regulations: The Federal rules restrict any use of the information to criminally investigate or prosecute any alcohol or drug abuse patient.[facility] Reason for Visit (unrecogniz ed section and content) Reason Comments Radiology CT Specialty Diagnoses / Procedures Referred By Carole t Referred To Contact CT IMAGING Diagnoses Abdominal pain, lower Diarrhea, unspecified type Procedures CT ABD/PEL W IVCON CT ABD & PELVIS W/CONTRAST Kaden Diamond MD [address] [place] [address] [place] [address] Referral ID Status Reason Start Date Expiration Date V isits Requested Visits Authorized [id number] Closed Auto-Generate d Referral 05/18/2024 06/17/2025 1 1 Reason Onset Date Comments Immunizations 06/11/2022 Flu vaccination Reason Comments Nasal Congestion Reason Comments Suture Removal Reason Comments Abdominal Pain Reason Comments New Patient LEFT Index finger in jury 11/2023; [facility] Referral Reason Comments Results Reason Comments Patient Update Reason Onset Date Comments Yearly Exam Immunizations 06/24/2024 Flu vaccination Reason Comments Patient Update Patient Question Reason Comments Surgery Scheduling 11/01 @ 8am [facility] (pt choice for date) Reason Comments Surgery Scheduling 05/02 @ 8am [facility] (pt choice for date) Reason Comments Surgery Scheduling 05/02 @ 8am [facility] (pt choice for date) Reason Comments Post-op Left index MCP radia l collateral ligament reconstruction using palmaris longus autograft and Tenolysis EDC and EIP left index finger on 05/02/25 Reason Comments Post-op Left index MCP radia l collateral ligament reconstruction using palmaris longus autograft and Tenolysis EDC and EIP left index finger Reason Comments Post-op Left index finger MC P radial collateral ligament reconstruction using palmaris longus autograft DOS 05/02/2025 Care Teams (unrecognized sec tion and content) Sample Prep Technician Relationship Specialty Start Date End Date Kaden Diamond MD [address] [place] [address] PCP - General Internal Medicine 04/03/14 Team Status: Active Member Role Status Dates Dr. Kaden Diamond MD Family Provider Active Dr. Kaden Diamond MD Primary Care Provider Active Team Status: Active Member Role Status Dates Dr. Kaden Diamond MD Primary Care Provider Active Dr. Janes Hammond MD Attending Provider Active Team Status: Inactive Member Role Status Dates Dr. Kaden Diamond MD Primary Care Provider, Refer [facility] Provider Active Levi Wong PA, PA Attending Provider Active Team Status: Inactive Member Role Status Dates Dr. Kaden Diamond MD Primary Care Provider Active Dr. Bam Linda MD [facility]ending [facility], [facility] Active Team Status: Inactive Member Role Status Dates Dr. Kdaen Diamond MD Primary Care Provider Active Dr. Catherine Preciado MD Attending Provider, Referring Provider Active Team Status: Inactive Member Role Status Dates Dr. Kaden Diamond MD Primary Care Provider Active José Encinas MD Emergency Provider Active Team Status: Inactive Member Role Status Dates Dr. Kaden Diamond MD Primary Care Provider Active José Encinas MD Attending Provider, Emergency Provid er Active Team Status: Inactive Member Role Status Dates Dr. Kaden Diamond MD Primary Care Provider Active Levi SOLARES PA Attending Provider, Referring Pr ovider Active Team Status: Inactive Member Role Status Dates Dr. Kaden Diamond MD Primary Care Provider Active Dr. Catherine Preciado MD Attending Provider Active Sample Prep Technician Relationship Specialty Start Date End Date Kaden Diamond MD [address] [place], [place] [address] PCP - General Internal Medicine 04/03/14 Team Status: Inactive Member Role Status Dates Dr. Kaden Diamond MD Primary Care Provider Active Dr. Jeremy Montoya MD Attending Provider, Refe rring Provider Active Dr. Bam Linda MD Other Provider Active Team Status: Inactive Member Role Status Dates Dr. Kaden Diamond MD Primary Care Provider, Refer ring Provider Active BECK Figueroa Attending Provider Active Team Status: Inactive Member Role Status Dates Dr. Kaden Diamond MD Primary Care Provider Active Joo SOLARES PA Attending Provider, Referring Provi pk Active Sample Prep Technician Relationship Specialty Start Date End Date Kaden Diamond MD [address] [place], [place] [id number] PCP - General Internal Medicine 04/03/14 Sample Prep Technician Relationship Specialty Start Date End Date Kaden Diamond MD [address] [place], [place] [address] PCP - General Internal Medicine 04/03/14 Sample Prep Technician Relationship Specialty Start Date End Date Kaden Diamond MD [address] [place], [place] [id number] PCP - General Internal Medicine 04/03/14 Sample Prep Technician Relationship Specialty Start Date End Date Kaden Diamond [address] [place] [address] PCP - General Internal Medicine 05/09/24 Catherine Preciado MD [address] [facility] [address] [place] [address] Internal Medicine 05/09/24 Sample Prep Technician Relationship Specialty Start Date End Date Kaden Diamond MD [address] [place] [address] PCP - General Internal Medicine 04/03/14 Sample Prep Technician Relationship Specialty Start Date End Date Kaden Diamond MD [address] [place] [address] PCP - General Internal Medicine 04/03/14 Sample Prep Technician Relationship Specialty Start Date End Date Kaden Diamond MD [address] [place] [address] PCP - General Internal Medicine 04/03/14 Sample Prep Technician Relationship Specialty Start Date End Date Kaden Diamond MD [address] [place] [address] PCP - General Internal Medicine 04/03/14 Sample Prep Technician Relationship Specialty Start Date End Date Kaden Diamond MD [address] [place] [address] PCP - General Internal Medicine 04/03/14 Sample Prep Technician Relationship Specialty Start Date End Date Kaden Diamond MD [address] [place] [address] PCP - General Internal Medicine 04/03/14 Sample Prep Technician Relationship Specialty Start Date End Date Kaden Diamond [address] [place] [address] PCP - General Internal Medicine 05/09/24 Catherine Preciado MD [address] [facility] [address] [place] [phone] Internal Medicine 05/09/24 Sample Prep Technician Relationship Specialty Start Date End Date Kaden iDamond [address] [place] [address] PCP - General Internal Medicine 05/09/24 Catherine Preciado MD [address] [facility] [address] [place] [phone] Internal Medicine 05/09/24 Team Status: Inactive Member Role Status Dates Dr. Kaden Diamond MD Primary Care Provider Active Start: October 05, 2024 End: October 05, 2024 Dr. Catherine Preciado MD Attending Provider Active Start: October 05, 2024 End: October 05, 2024 Dr. Catherine Preciado MD Referring Provider Active Start: October 05, 2024 End: October 05, 2024 Team Status: Inactive Member Role Status Dates Dr. Kaden Diamond MD Primary Care Provider Active Start: December 29, 2024 End: December 29, 2024 Dr. Catherine Preciado MD Attending Provider Active Start: December 29, 2024 End: December 29, 2024 Dr. Catherine Preciado MD Referring Provider Active Start: December 29, 2024 End: December 29, 2024 Team Status: Active Member Role/Relationship Status Dates Dr. Kaden Diamond MD Family Provider Active Dr. Kaden Diamond MD Primary Care Provider Active Team Status: Inactive Member Role/Relationship Status Dates Dr. Kaden Diamond MD Primary Care Provider Active Start: December 29, 2024 End: December 29, 2024 Dr. Catherine Preciado MD Attending Provider Active Start: December 29, 2024 End: December 29, 2024 Dr. Catherine Preciado MD Referring Provider Active Start: December 29, 2024 End: December 29, 2024 Team Status: Inactive Member Role/Relationship Status Dates Dr. Kaden Diamond MD Primary Care Provider Active Start: March 27, 2025 End: March 27, 2025 Dr. Catherine Preciado MD Attending Provider Active Start: March 27, 2025 End: March 27, 2025 Dr. Catherine Preciado MD Referring Provider Active Start: March 27, 2025 End: March 27, 2025 Sample Prep Technician Relationship Specialty Start Date End Date Kaden Diamond [address] [place], [place] [id number] PCP - General Internal Medicine 05/09/24 Catherine Preciado MD [address] [facility] [address] [place] [phone] Internal Medicine 05/09/24 Sample Prep Technician Relationship Specialty Start Date End Date Kaden Diamond [address] [place], [place] [id number] PCP - General Internal Medicine 05/09/24 Catherine Preciado MD [address] [facility] [address] [place] [phone] Internal Medicine 05/09/24 Sample Prep Technician Relationship Specialty Start Date End Date Kaden Diamond [address] [place], [place] [id number] PCP - General Internal Medicine 05/09/24 Catherine Preciado MD [address] [facility] [address] [place] [phone] Internal Medicine 05/09/24 Sample Prep Technician Relationship Specialty Start Date End Date Kaden Diamond [address] [facility] [place] [address] PCP - General Internal Medicine 05/09/24 Catherine Preciado MD [address] [facility] [address] [place] [phone] Internal Medicine 05/09/24 Sample Prep Technician Relationship Specialty Start Date End Date Kaden Diamond [address] [facility] [place] [address] PCP - General Internal Medicine 05/09/24 Catherine Preciado MD [address] [facility] [address] [place] [phone] Internal Medicine 05/09/24 Sample Prep Technician Relationship Specialty Start Date End Date Kaden Diamond [address] [facility] [place] [address] PCP - General Internal Medicine 05/09/24 Catherine Preciado MD [address] [facility] [address] [place] [phone] Internal Medicine 05/09/24 Sample Prep Technician Relationship Specialty Start Date End Date Kaden Diamond [address] [facility] [place] [id number] PCP - General Internal Medicine 05/09/24 Catherine Preciado MD [address] [facility] [address] [place] [phone] Internal Medicine 05/09/24 Sample Prep Technician Relationship Specialty Start Date End Date Kaden Diamond [address] [place] [address] PCP - General Internal Medicine 05/09/24 Catherine Preciado MD [address] [facility] [address] [place] [phone] Internal Medicine 05/09/24 Team Status: Active Member Role/Relationship Status Dates Dr. Kaden Diamond MD Primary care physician Activ e Team Status: Inactive Member Role/Relationship Status Dates Dr. Kaden Diamond MD Primary care physician Activ e Start: March 27, 2025 End: March 27, 2025 Dr. Catherine Preciado MD Attending physician Active Start: March 27, 2025 End: March 27, 2025 Dr. Catherine Preciado MD Referring Provider Active Start: March 27, 2025 End: March 27, 2025 Team Status: Inactive Member Role/Relationship Status Dates Dr. Kaden Diamond MD Primary care physician Activ e Start: May 26, 2025 End: May 26, 2025 Dr. Catherine Preciado MD Attending physician Active Start: May 26, 2025 End: May 26, 2025 Dr. Catherine Preciado MD Referring Provider Active Start: May 26, 2025 End: May 26, 2025 Team Status: Active Member Role/Relationship Status Dates Dr. Kaden Diamond MD Primary care physician Activ e Start: June 15, 2025 DEION CARRINGTON Attending physician Active Star t: June 15, 2025 DEION CARRINGTON Referring Provider Active Start : June 15, 2025 Team Status: Inactive Member Role/Relationship Status Dates Dr. Kaden Diamond MD Primary care physician Activ e Start: June 17, 2025 End: June 17, 2025 Dr. Travis Pike DO Emergency Departhi nt Physician Active Start: June 17, 2025 End: June 17, 2025 Sample Prep Technician Relationship Specialty Start Date End Date Kaden Diamond [address] [place] [address] PCP - General Internal Medicine 05/09/24 Catherine Preciado MD [address] [facility] [address] [place] [phone] Internal Medicine 05/09/24 Team Status: Inactive Member Role/Relationship Status Dates Dr. Kaden Diamond MD Primary care physician Activ e Start: June 17, 2025 End: June 17, 2025 Dr. Travis Pike DO Attending physician Active Start: June 17, 2025 End: June 17, 2025 Dr. Travis Pike DO Emergency Departme nt Physician Active Start: June 17, 2025 End: June 17, 2025 Scheduled Active and Recently Administ ered Medications (unrecognized section and content) Medication Order 04/30/2025 05/01/2025 05/02/2025 acetaminophen (Tylenol) tablet 1,000 mg (COMPLETED) 1,000 mg, Oral, Once, On Thu05/02/25 at 0615, For 1 dose, Preprocedure, Administer 60 minutes prior to surgery. 0643 (Given - Provid er: Jere Perales RN) clindamycin in D5W (Cleocin) IVPB 600 mg (COMPLETED) 600 mg, IntraVENous, at 100 mL/hr, Administer over 30 Minutes, Once, On Thu05/02/25 at 0615, For 1 dose, Preprocedure, Administer within 1 hour prior to Incision. premix bag, Suspected Indication (Select all that apply): Surgical Prophylaxis 0735 (Given - Provid er: Josie Williamson RN) famotidine (Pepcid) tablet 20 mg (COMPLETED)(Linked Group 1) 20 mg, Oral, Once, On Thu05/02/25 at 0615, For 1 dose, Preprocedure, IV or Oral - Use PO option as first line. If unable to tolerate PO, then okay to use IV. 0644 (Given - Provid er: Jere Perales RN) lidocaine PF (Xylocaine) 1 % injection 5 mL 5 mL, Infiltration, Once, On Thu05/02/25 at 0615, For 1 dose, Preprocedure, Draw up for block placement. 0615 (Canceled Entry - Provider: Automatic Discharge Provider - Comment: Automatically canceled at discontinue of medication order) sodium chloride 0.9% (NS) flush 10 mL 10 mL, IntraVENous, Every 12 hours scheduled (2 times per day), First dose on Thu05/02/25 at 0900, Preprocedure 0900 (Canceled Entry - Provider: Automatic Discharge Provider - Comment: Automatically canceled at discontinue of medication order) sodium chloride 0.9% (NS) flush 5-40 mL 5-40 mL, IntraVENous, Every 12 hours, First dose on Thu05/02/25 at 0615, Preprocedure, For Line Patency: Peripheral IV = 5 mL; Midline or Central Line = 10 mL/lumen. If following IV push medication, administer flush at same rate as the IV push. Flush volume is determined by type of infusion therapy being given. For non-viscous solutions use: Peripheral IV = 5 mL Midline or Central Line = 10 mL/lumen For viscous solutions (i.e. blood components, parenteral nutrition, contrast media, or after obtaining blood sample) use: Peripheral IV = 10 mL Midline or Central Line = 20 mL/lumen 0615 (Canceled Entry - Provider: Automatic Discharge Provider - Comment: Automatically canceled at discontinue of medication order) Continuous Medication Order 04/30/2025 05/01/2025 05/02/2025 lactated Ringer's (LR) infusion 50 mL/hr, IntraVENous, Continuous, Starting on Thu05/02/25 at 0615, Preprocedure, Upon admission to sameday - please start iv if patient does not have iv access. Use 500ml NS for patients on dialysis. 0643 (New Bag - Prov ider: Jere Perales RN)0729 (Continued by Anesthesia - Provider: Josie Williamson RN)0930 (Anesthesia Volume Adjustment - Provider: Josie Williamson RN)1316 (Due: Order Ending - Provider: Automatic Discharge Provider - Comment: [Order ends at this time. Document the following action when infusion is complete: Stopped]) PRN Medication Order 04/30/2025 05/01/2025 05/02/2025 kozRNDYSyryjm-ofnzwgspymn-ntgfxlaob ne (TAP) syringe 30 mL 30 mL, Transabdominal Plane, Once PRN, Nerve Block, Starting on Thu05/02/25 at 0605, For 1 dose, Preprocedure diphenhydrAMINE (BENADryl) injection 12.5 mg 12.5 mg, IntraVENous, Once PRN, itching, Starting on Thu05/02/25 at 0944, For 1 dose, Recovery (only) hydrALAZINE (Apresoline) injection 5 mg(Linked Group 2) 5 mg, IntraVENous, Every 15 min PRN, high blood pressure, for SBP greater than 160 mmHg for 2 consecutive measurements taken from different sites, Starting on Thu05/02/25 at 0944, For 2 doses, Recovery (only), PRN for SBP > 160 for 2 consecutive measurements, and if one of the following conditions is met: 1) If IV labetolol is ineffective. 2) If HR is under 60. 3) If patient has heart block, COPD or asthma. If both labetalol and hydralazine ineffective, notify anesthesia provider. HYDROmorphone (Dilaudid) injection 0.25 mg 0.25 mg, IntraVENous, Every 5 min PRN, moderate pain (4-6), Starting on Thu05/02/25 at 0944, For 4 doses, Recovery (only), For Phase I. If Phase II oral narcotics have been administered in the last 60 minutes, do not administer IV narcotics unless specifically approved by provider. HYDROmorphone (Dilaudid) injection 0.5 mg 0.5 mg, IntraVENous, Every 5 min PRN, severe pain (7-10), Starting on Thu05/02/25 at 0944, For 4 doses, Recovery (only), For Phase I. If Phase II oral narcotics have been administered in the last 60 minutes, do not administer IV narcotics unless specifically approved by provider. labetalol (Normodyne,Trandate) injection 5 mg(Linked Group 2) 5 mg, IntraVENous, Every 10 min PRN, high blood pressure, for SBP greater than 160 mmHg for 2 consecutive measurements taken from different sites., Starting on Thu05/02/25 at 0944, For 2 doses, Recovery (only), PRN for SBP >160 for 2 consecutive measurements, if HR is 60 or greater. If beta chuy is contraindicated (HR less than 60, heart block, COPD or asthma) use hydralazine IV order. LORazepam (Ativan) injection 0.5 mg 0.5 mg, IntraVENous, Once PRN, for anxiety or muscle spasm., Starting on Thu05/02/25 at 0944, For 1 dose, Recovery (only), For IV doses dilute dose with 1ml NS. midazolam (Versed) injection 2 mg 2 mg, IntraVENous, PRN, anxiety, administration per anesthesiologist direction. Up to two mg., Starting on Thu05/02/25 at 0605, Preprocedure, Pull 2 mg vial of midazolam draw up for anesthesia block placement with administration per anesthesiologist direction. mineral oil external liquid (CANCELED) As needed, Starting on Thu05/02/25 at 0753, Intraprocedure 0753 (Given - Provid er: Karl Nolasco MD - Comment: Surgical site) ondansetron (Zofran) injection 4 mg 4 mg, IntraVENous, Once PRN, nausea, Starting on Thu05/02/25 at 0944, For 1 dose, Recovery (only), Initial antiemetic therapy. oxyCODONE (Roxicodone) immediate release tablet 10 mg(Linked Group 3) 10 mg, Oral, Every 4 hours PRN, severe pain (7-10), Starting on Thu05/02/25 at 0944, For 1 dose, Recovery (only), PHASE II oxyCODONE (Roxicodone) immediate release tablet 5 mg(Linked Group 3) 5 mg, Oral, Every 4 hours PRN, moderate pain (4-6), Starting on Thu05/02/25 at 0944, For 1 dose, Recovery (only), PHASE II sodium chloride 0.9 % bolus 500 mL 500 mL, IntraVENous, at 1,000 mL/hr, Administer over 0.5 Hours, PRN, Anti-nausea, Starting on Thu05/02/25 at 0944, Recovery (only), Indications: Anti-nausea sodium chloride 0.9 % infusion 5-250 mL/hr, IntraVENous, PRN, if patient receiving piggyback infusions and maintenance fluids are not ordered OR KVO fluids to protect IV site / prevent frequent line interruptions / long duration, Starting on Thu05/02/25 at 0605, Preprocedure, For piggyback infusion, administer at same rate as piggyback for a total of 25 mL. Enter 25 mL into dose field and piggyback rate into rate field of order. If piggyback is infusing at a rate less than 100 mL/hr, enter 25 mL into dose field and 100 mL/hr into rate field of order. For KVO fluids, enter rate of 20 mL/hr or less into rate field of order. sodium chloride 0.9 % infusion 5-250 mL/hr, IntraVENous, PRN, if patient receiving piggyback infusions and maintenance fluids are not ordered OR KVO fluids to protect IV site / prevent frequent line interruptions/ long duration, Starting on Thu05/02/25 at 0605, Preprocedure, For piggyback infusion, administer at same rate as piggyback for a total of 25 mL. Enter 25 mL into dose field and piggyback rate into rate field of order. If piggyback is infusing at a rate less than 100 mL/hr, enter 25 mL into dose field and 100 mL/hr into rate field of order. For KVO fluids, enter rate of 20 mL/hr or less into rate field of order. sodium chloride 0.9 % irrigation solution (CANCELED) As needed, Starting on Thu05/02/25 at 0753, Intraprocedure 0753 (Given - Provid er: Karl Nolasco MD - Comment: Surgical site) sodium chloride 0.9% (NS) flush 10 mL 10 mL, IntraVENous, PRN, line care, Starting on Thu05/02/25 at 0605, Preprocedure, After every IV line use sodium chloride 0.9% (NS) flush 5-40 mL 5-40 mL, IntraVENous, PRN, line care, After every IV line use, Starting on Thu05/02/25 at 0605, Preprocedure, For Line Patency: Peripheral IV = 5 mL; Midline or Central Line = 10 mL/lumen. If following IV push medication, administer flush at same rate as the IV push. Flush volume is determined by type of infusion therapy being given. For non-viscous solutions use: Peripheral IV = 5 mL Midline or Central Line = 10 mL/lumen For viscous solutions (i.e. blood components, parenteral nutrition, contrast media, or after obtaining blood sample) use: Peripheral IV = 10 mL Midline or Central Line = 20 mL/lumen Linked Groups Order Group 1: famotidine (Pepcid) tablet 20 mg (COMPLETED)Jump to med 20 mg, Oral, Once, On Thu05/02/25 at 0615, For 1 dose, Preprocedure, IV or Oral - Use PO option as first line. If unable to tolerate PO, then okay to use IV. Or famotidine (Pepcid) 20 mg in sodium chloride (PF) 0.9 % 10 mL injection (COMPLETED) 20 mg, IntraVENous, Administer over 2 Minutes, Once, On Thu05/02/25 at 0615, For 1 dose, Preprocedure, IV or Oral Group 2: labetalol (Normodyne,Trandate) injection 5 mgJump to med 5 mg, IntraVENous, Every 10 min PRN, high blood pressure, for SBP greater than 160 mmHg for 2 consecutive measurements taken from different sites., Starting on Thu05/02/25 at 0944, For 2 doses, Recovery (only), PRN for SBP >160 for 2 consecutive measurements, if HR is 60 or greater. If beta chuy is contraindicated (HR less than 60, heart block, COPD or asthma) use hydralazine IV order. Or hydrALAZINE (Apresoline) injection 5 mgJump to med 5 mg, IntraVENous, Every 15 min PRN, high blood pressure, for SBP greater than 160 mmHg for 2 consecutive measurements taken from different sites, Starting on Thu05/02/25 at 0944, For 2 doses, Recovery (only), PRN for SBP > 160 for 2 consecutive measurements, and if one of the following conditions is met: 1) If IV labetolol is ineffective. 2) If HR is under 60. 3) If patient has heart block, COPD or asthma. If both labetalol and hydralazine ineffective, notify anesthesia provider. Group 3: oxyCODONE (Roxicodone) immediate release tablet 5 mgJump to med 5 mg, Oral, Every 4 hours PRN, moderate pain (4-6), Starting on Thu05/02/25 at 0944, For 1 dose, Recovery (only), PHASE II Or oxyCODONE (Roxicodone) immediate release tablet 10 mgJump to med 10 mg, Oral, Every 4 hours PRN, severe pain (7-10), Starting on Thu05/02/25 at 0944, For 1 dose, Recovery (only), PHASE II FOR RECORDS PERTAINING TO PATIENTS WHO ARE [...] BE BASED ON THE PRIMARY CLINICAL RECORDS. [facility]. provides no warranty or guarantee of the accuracy or completeness of information in this document.
--- OUTSIDE RECORDS SUMMARY | 2025-07-07 13:22 | XMS RPT_ITS | CCD ---
Author Organization [facility] Care Team Providers Care Materials Clerk Name Role Phone DR KADEN DIAMOND MD [...] drake Dr. Travis Pike DO Attending Physician CHARISSA CORLEY Attending Unavailable DIAMOND, KADEN Primary [...] Natural Rubber] Allergy to substance 1 unknown [facility] (20 sources) bee venom protein (honey bee) Allergy to substance 1 Unknown [facility] (20 sources) Ampicillin; Translations: [AMPICILLIN] Drug Allergy 6 Other [facility] Work Phone: Comment on above: Pt was told he was a llergic unknown reaction to medication. Pt was told to stay away from it. (13 sources) bandaid [Other] Propensity to adverse reactions 9 Rash [facility] Work Phone: (13 sources) bee stings [Other] Propensity to adverse reactions 6 Shortness of Breath [facility] Work Phone: (13 sources) Seasonal Allergies [Other] Propensity to adverse reactions 7 [facility] (1 source) OTHER; Translations: [OTHER] Propensity to adverse reactions (disorder) 9 [facility] Repository (13 sources) bee venom Allergy to substance 1 Unknown, Hives, Swelling [facility] (1 source) Ampicillin Drug Allergy 5 [facility] Repository (1 source) bee venom protein (honey bee) Drug allergy (disorder) 5 [facility] Repository Medications Current Medications Medication Drug Class(es) [...] Comment on above: Take 1 tablet by [facility] once daily. 30 actuat fluticasone furoate 0.2 [...] Preprocedure, Administer 60 minutes prior to surgery. [id number] 200 actuat albuterol 0.09 mg/actuat metered dose [...] extended release oral tablet (3 sources) Uncompetitive K-zsjgfu-Y-aspartat e Receptor Antagonist, Sigma-1 Agonist End: 05-16-2024 [...] Department Summary on 06-17-2025 Emergency Department Summary [facility] Medical Records Department [address] [place] [address] Emergency Department Summary 06/17/25 MR#: [id number] Acct: [id number] Name: HOLLIS MASCORRO Rep #: [id number] : 1965 59 From: Travis Pike DO [...] they came here for further evaluation management. [facility] Medical History Laceration of left forearm URI [...] 10 mg (more content not included)... Normal [facility] Office Visiton 06-14-2025 Follow-up visit [id number] Hollis Mascorro 1965 M Date Provider Department Center 06/14/2025 [id number] NOLASCO MG GRN ORT None No family history on file Level of Service:77221 [place] POSTOP FOLLOW UP VISIT RELATED TO ORIGINAL PX Reason for Visit and Comments: Post-op [483] - Left index finger MCP radial collateral ligament reconstruction using palmaris longus autograft DOS 05/02/2025 Normal [facility] [employer] System [facility] Progress Noteon 06-14-2025 Progress Note [facility] ORTHOPE [facility] - [facility] [address] [facility] [address] Dept: [phone] Dept 06/14/2025 Chief Complaint Patient presents with [...] dictations but occasionally words are mis-transcribed.) Normal [facility] Re-Evalution OTon 06-13-2025 Re-Evalution OT [facility] Occupational Therapy [facility] [address] [place] [address] / REEVALUATION / MEDICARE RECERTIFICATION OCCUPATIONAL THERAPY MR#: [id number] Acct: [id number] Name: HOLLIS MASCORRO Rep #: [id number] : 1965 59 From: Tatum Atkins OTR/ROBERT MorrowT Referring Dr.: OUT OF TOWN DOCTOR Status: REG R CR [facility] Date: SELF PAY INSURANCE Re-Evaluation Intro: CHARISSA [...] Yes Goal:ROM equal to unaffected hand: Yes Goal:Inclusion Internship/Pinch strength at least 75% of unaffected hand: [...] do not hesitate to contact me at [phone] by phone or if you have questions or concerns regarding this new plan of care! Sincerely, Tatum Atkins OTR/L, [facility] 06/13/25 7970 CC: Dr. Kaden Diamond MD; CHARISSA CORLEY MK Signed For Medicare only, by signing this I certify the plan of care. ___ Physicians Signature Date Normal [facility] Absolute lymphocyte countOrd ered By: Catherine Preciado on 05-26-2025 Lymphocytes Auto (Unsp spec) [#/Vol] 1.80 10*3/uL 0.83-4.51 [facility] Absolute neutrophil countOrd ered By: Catherine Preciado on 05-26-2025 Neutrophils (Bld) [#/Vol] 5.3 10*3/uL 2.0-7.7 [facility] Anion gap in Serum or Plasma Ordered By: Catherine Preciado on 05-26-2025 Anion gap [Moles/Vol] 15 mmol/L 5-15 [facility] Automated lymphocyte count a s percentage of total leukocytesOrdered By: Catherine Preciado on 05-26-2025 Lymphocytes/100 WBC Auto (Unsp spec) 20.7 % 19- [facility] BUN/creatinine ratioOrdered By: Catherinecarlos Preciado on 05-26-2025 Urea nitrogen/Creatinine [Mass ratio] 16.7 mg/mg 10- [facility] Basophil percentageOrdered B y: Catherine Preciado on 05-26-2025 Basophils/100 WBC (Bld) 0.9 % 0-1 [facility] Bilirubin, totalOrdered By: Catherinecarlos Preciado on 05-26-2025 Bilirubin [Mass/Vol] 0.41 mg/dL 0.00-1.30 [facility] CBC W/Diff, Automatedon Absolute Lymph 1.80 X10 3/uL Normal 0.83-4.51 [facility] Comment on above: Performed By: #### L 500.4050, L100.0100 #### [facility] [address] [facility] [place], [address] Absolute Neut 5.3 X10 3/uL Normal 2.0-7.7 [facility] Comment on above: Performed By: #### L 500.4050, L100.0100 #### [facility] [address] [place], [address] Basophils/100 WBC (Bld) 0.9 % Normal 0-1 [facility] Comment on above: Performed By: #### L 500.4050, L100.0100 #### [facility] [address] [place], [address] Eosinophils/100 WBC (Bld) 3.8 % Normal 0-5 [facility] Comment on above: Performed By: #### L 500.4050, L100.0100 #### [facility] [address] [place], [address] Erythrocyte distribution width (RBC) [Ratio] 13.3 % Normal 11.6-14.6 [facility] Comment on above: Performed By: #### L 500.4050, L100.0100 #### [facility] [address] [place], [address] Hematocrit (Bld) [Volume fraction] 44.6 % Normal 40-54 [facility] Comment on above: Performed By: #### L 500.4050, L100.0100 #### [facility] [address] [place], [address] Hemoglobin (Bld) [Mass/Vol] 15.6 g/dL Normal 13.0-16.5 [facility] Comment on above: Performed By: #### L 500.4050, L100.0100 #### [facility] [address] [place], [address] IG% 1.200 High 0.0-0.9 [facility] Comment on above: Result Comment: IG% - Immature Granulocytes (promyelocytes, myelocytes and metamyelocytes) > 1% indicates that a LEFT SHIFT is Present. Performed By: #### L 500.4050, L100.0100 #### [facility] [address] [place], [address] Lymphocytes/100 WBC (Bld) 20.7 % Normal 19-41 [facility] Comment on above: Performed By: #### L 500.4050, L100.0100 #### [facility] [address] [place], [address] MCH (RBC) [Entitic mass] 32.6 pg High 27.0-32.0 [facility] Comment on above: Performed By: #### L 500.4050, L100.0100 #### [facility] [address] [place], [address] MCHC (RBC) [Mass/Vol] 35.0 g/dL Normal 32-36 [facility] Comment on above: Performed By: #### L 500.4050, L100.0100 #### [facility] [address] [place], [address] MCV (RBC) [Entitic vol] 93.1 fL Normal 80-94 [facility] Comment on above: Performed By: #### L 500.4050, L100.0100 #### [facility] [address] [place], [address] Monocytes/100 WBC (Bld) 12.1 % High 0-10 [facility] Comment on above: Performed By: #### L 500.4050, L100.0100 #### [facility] [address] [place], [address] Neutrophils/100 WBC (Bld) 61.3 % Normal 47-70 [facility] Comment on above: Performed By: #### L 500.4050, L100.0100 #### [facility] [address] [place], [address] Nucleated RBC (Bld) [#/Vol] 0 10*3/uL Normal 0-5 [facility] Comment on above: Performed By: #### L 500.4050, L100.0100 #### [facility] [address] [place], [address] Platelet mean volume (Bld) [Entitic vol] 10.2 fL Normal 6.2-12.0 [facility] Comment on above: Performed By: #### L 500.4050, L100.0100 #### [facility] [address] [place], [address] Platelets (Bld) [#/Vol] 258 10*3/uL Normal 150-450 [facility] Comment on above: Performed By: #### L 500.4050, L100.0100 #### [facility] [address] [place], [address] RBC (Bld) [#/Vol] 4.79 10*6/uL Normal 4.6-6.2 [facility] Comment on above: Performed By: #### L 500.4050, L100.0100 #### [facility] [address] [place], [address] RDW SD 45.2 fl High 35.1-43.9 [facility] Comment on above: Performed By: #### L 500.4050, L100.0100 #### [facility] [address] [place], [address] WBC (Bld) [#/Vol] 8.7 10*3/uL Normal 4.4-11.0 [facility] Comment on above: Performed By: #### L 500.4050, L100.0100 #### [facility] [address] [place], [address] Carbon dioxide, total [Moles /volume] in Central venous bloodOrdered By: Catherine Precidao on 05-26-2025 CO2 [Moles/Vol] 20.5 mmol/L Low 21.0-32.0 [facility] Chloride assayOrdered By: Beck Preciado on 05-26-2025 Chloride [Moles/Vol] 102 mmol/L 98-108 [facility] Comprehensive Metabolic Prof ilon 05-26-2025 Albumin [Mass/Vol] 4.2 g/dL Normal 3.5-5.0 [facility] Comment on above: Performed By: #### L 500.4050, L100.0100 #### [facility] [address] [place], [address] Albumin/Globulin [Mass ratio] 1.4 {ratio} Normal 0.9-2.4 [facility] Comment on above: Performed By: #### L 500.4050, L100.0100 #### [facility] [address] [place], [address] ALK PHOS 82 U/L Normal 40-129 [facility] Comment on above: Performed By: #### L 500.4050, L100.0100 #### [facility] [address] [place], [address] ALT [Catalytic activity/Vol] 34 U/L Normal <=46 [facility] Comment on above: Performed By: #### L 500.4050, L100.0100 #### [facility] [address] [place], [address] AST [Catalytic activity/Vol] 31 U/L Normal <=37 [facility] Comment on above: Performed By: #### L 500.4050, L100.0100 #### [facility] [address] [place], [address] Bilirubin [Mass/Vol] 0.41 mg/dL Normal 0.00-1.30 [facility] Comment on above: Performed By: #### L 500.4050, L100.0100 #### [facility] [address] [place], [address] BUN/CRE 16.7 RATIO Normal 10-20 [facility] Comment on above: Performed By: #### L 500.4050, L100.0100 #### [facility] [address] [place], [address] Calcium [Mass/Vol] 9.1 mg/dL Normal 7.6-11.0 [facility] Comment on above: Performed By: #### L 500.4050, L100.0100 #### [facility] [address] [place], [address] Chloride [Moles/Vol] 102 mmol/L Normal 98-108 [facility] Comment on above: Performed By: #### L 500.4050, L100.0100 #### [facility] [address] [place], [address] CO2 [Moles/Vol] 20.5 mmol/L Low 21.0-32.0 [facility] Comment on above: Performed By: #### L 500.4050, L100.0100 #### [facility] [address] [place], [address] Creatinine [Mass/Vol] 1.00 mg/dL Normal 0.70-1.20 [facility] Comment on above: Performed By: #### L 500.4050, L100.0100 #### [facility] [address] [place], [address] GAP 15 Normal 5-15 [facility] Comment on above: Performed By: #### L 500.4050, L100.0100 #### [facility] [address] [place], [address] GFR/1.73 sq M.predicted among non-blacks MDRD (S/P/Bld) [Vol rate/Area] 88 mL/min/{1.73_m2} Normal >60 [facility] Comment on above: Result Comment: mL/m in/1.73m2 CKD-EPI Creatinine Equation (2020) Performed By: #### L 500.4050, L100.0100 #### [facility] [address] [place], [address] Globulin (S) [Mass/Vol] 3.1 g/dL Normal 2.2-4.2 [facility] Comment on above: Performed By: #### L 500.4050, L100.0100 #### [facility] [address] [place], [address] Glucose [Mass/Vol] 128 mg/dL High 70-99 [facility] Comment on above: Performed By: #### L 500.4050, L100.0100 #### [facility] [address] [place], [address] Potassium [Moles/Vol] 3.7 mmol/L Normal 3.3-5.1 [facility] Comment on above: Performed By: #### L 500.4050, L100.0100 #### [facility] [address] [place], [address] Sodium [Moles/Vol] 138 mmol/L Normal 133-145 [facility] Comment on above: Performed By: #### L 500.4050, L100.0100 #### [facility] [address] [place], [address] T PROT 7.4 g/dL Normal 5.9-8.4 [facility] Comment on above: Performed By: #### L 500.4050, L100.0100 #### [facility] [address] [place], [address] Urea nitrogen [Mass/Vol] 17 mg/dL Normal 4-19 [facility] Comment on above: Performed By: #### L 500.4050, L100.0100 #### [facility] [address] [place], [address] Eosinophil percentageOrdered By: Catherine Preciado on 05-26-2025 Eosinophils/100 WBC (Bld) 3.8 % 0-5 [facility] Erythrocyte distribution wid th ratioOrdered By: Catherine Preciado on 05-26-2025 Erythrocyte distribution width (RBC) [Ratio] 13.3 % 11.6-14.6 [facility] Erythrocyte distribution wid th standard deviationOrdered By: Catherine Preciado on 05-26-2025 Erythrocyte distribution width (RBC) [Ratio] 45.2 fl High 35.1-43.9 [facility] Glomerular filtration rate ( GFR) estimation/1.73 sq m using serum, plasma, or whole bOrdered By: Catherine Preciado on 05-26-2025 GFR/1.73 sq M.predicted among non-blacks MDRD (S/P/Bld) [Vol rate/Area] 88 mL/min/{1.73_m2} >60 [facility] Comment on above: mL/min/1.73m2 CKD-EP I Creatinine Equation (2020) Hematocrit Auto (Bld) [Volum e fraction]Ordered By: Catherine Preciado on 05-26-2025 Hematocrit (Bld) [Volume fraction] 44.6 % 40-54 [facility] Hemoglobin measurementOrdere d By: Catherine Preciado on 05-26-2025 Hemoglobin (Bld) [Mass/Vol] 15.6 g/dL 13.0-16.5 [facility] Immature granulocytes/100 WB C Auto (Bld)Ordered By: Catherine Preciado on 05-26-2025 Immature granulocytes/100 WBC (Bld) 1.200 % High 0.0-0.9 [facility] Comment on above: IG% - Immature Granu locytes (promyelocytes, myelocytes and metamyelocytes) > 1% indicates that a LEFT SHIFT is Present. Laboratory - Chemistry and C hemistry - challengeOrdered By: Catherine Preciado on 05-26-2025 AST [Catalytic activity/Vol] 31 U/L <38 [facility] MCV (mean corpuscular volume ) determinationOrdered By: Catherine Preciado on 05-26-2025 MCV (RBC) [Entitic vol] 93.1 fL 80-94 [facility] Mean corpuscular hemoglobin (MCH) determinationOrdered By: Catherine Preciado on 05-26-2025 MCH (RBC) [Entitic mass] 32.6 pg High 27.0-32.0 [facility] Mean corpuscular hemoglobin concentration (MCHC) determinationOrdered By: Catherine Preciado 05-26-2025 MCHC (RBC) [Mass/Vol] 35.0 g/dL 32-36 [facility] Mean platelet volume determi nationOrdered By: Catherine Preciado on 05-26-2025 Platelet mean volume (Bld) [Entitic vol] 10.2 fL 6.2-12.0 [facility] Monocyte percentageOrdered B y: Catherine Preciado on 05-26-2025 Monocytes/100 WBC (Bld) 12.1 % High 0-10 [facility] Neutrophil percentageOrdered By: Catherine Preciado on 05-26-2025 Neutrophils/100 WBC (Bld) 61.3 % 47-70 [facility] Nucleated red blood cell per centageOrdered By: Catherine Preciado on 05-26-2025 Nucleated RBC/100 WBC (Bld) [Ratio] 0 % 0-5 [facility] Platelet countOrdered By: Beck Preciado on 05-26-2025 Platelets (Bld) [#/Vol] 258 10*3/uL 150-450 [facility] Potassium measurement (mass/ volume)Ordered By: Catherine Preciado on 05-26-2025 Potassium (Unsp spec) [Mass/Vol] 3.7 mmol/L 3.3-5.1 [facility] RBC Auto (Bld) [#/Vol]Ordere d By: Catherine Preciado on 05-26-2025 RBC (Bld) [#/Vol] 4.79 10*6/uL 4.6-6.2 [facility] Serum creatinine measurement (mass/volume)Ordered By: Catherine Preciado on 05-26-2025 Creatinine [Mass/Vol] 1.00 mg/dL 0.70-1.20 [facility] Serum globulin measurementOr dered By: Catherine Preciado on 05-26-2025 Globulin (S) [Mass/Vol] 3.1 g/dL 2.2-4.2 [facility] Serum glucose measurement (m ass/volume)Ordered By: Catherine Preciado on 05-26-2025 Glucose [Mass/Vol] 128 mg/dL High 70-99 [facility] Serum or plasma alanine rivera otransferase (ALT) measurementOrdered By: Catherine Preciado on 05-26-2025 ALT [Catalytic activity/Vol] 34 U/L <47 [facility] Serum or plasma albumin britni urement (mass/volume)Ordered By: Catherine Preciado on 05-26-2025 Albumin [Mass/Vol] 4.2 g/dL 3.5-5.0 [facility] Serum or plasma albumin/glob ulin mass ratioOrdered By: Catherine Preciado on 05-26-2025 Albumin/Globulin [Mass ratio] 1.4 {ratio} 0.9-2.4 [facility] Serum or plasma alkaline addie sphatase measurementOrdered By: Catherine Preciado on 05-26-2025 ALP [Catalytic activity/Vol] 82 U/L 40-129 [facility] Serum or plasma calcium britni urement (mass/volume)Ordered By: Catherine Preciado on 05-26-2025 Calcium [Mass/Vol] 9.1 mg/dL 7.6-11.0 [facility] Serum or plasma urea nitroge n measurement (mass/volume)Ordered By: Catherine Preciado on 05-26-2025 Urea nitrogen [Mass/Vol] 17 mg/dL 4-19 [facility] Sodium levelOrdered By: Gloria Preciado on 05-26-2025 Sodium [Moles/Vol] 138 mmol/L 133-145 [facility] Total proteinOrdered By: Warren Preciado on 05-26-2025 Protein [Mass/Vol] 7.4 g/dL 5.9-8.4 [facility] White blood cell (WBC) count Ordered By: Catherine Preciado on 05-26-2025 WBC (Bld) [#/Vol] 8.7 10*3/uL 4.4-11.0 [facility] OT General Evaluationon 04-22 OT General Evaluation [facility] Occupational Therapy [address] [place] [address] / REHABILITATION SERVICES INITIAL EVALUATION MR#: [id number] Acct: [id number] Name: HOLLIS MASCORRO Rep #: [id number] : 1965 59 From: Tatum Atkins OTR/L, [...] pt is right handed. 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 pt arrives 2 weeks and 2 days s/p. ROM MP: right IF 0/85 left -5/15 PIP: right IF 0/93 left 0/40 DIP: right 0/60 left 0/35 Strength Inclusion Internship: right 90# left NT Lateral Pinch: right 22# left NT Tripod Pinch: right 22# left NT Strength Comments: will test strength at later date Edema PIP: right IF 7.0 left 7.5 Sensation Sensation Comments: denies Quick DASH-Disab of Arm,Shoulder Hand Quick DASH Score: 30.0000 Goals Goal:Daily scar massage when approriate: Yes Goal:ROM equal to unaffected hand: Yes Goal:Inclusion Internship/Pinch strength at least 75% of unaffected hand: [...] use: splint Shashi Loop Option: introduce wide shahsi loop splint during the day to allow [...] to be FAXED BACK to us at [phone] for Medicare purposes. Please let me know if there are questions or concerns regarding this plan of care. Physician Signature: Date: _ 05/19/25 1159 CC: Dr. Kaden Diamond MD; CHARISSA CORLEY AYAKA Signed For Medicare only, by signing this I certify the plan of care. ___ Physicians Signature Date [facility] Office Visiton 05-16-2025 Follow-up visit [id number] Hollis Mascorro 1965 M Date Provider Department Center 05/16/2025 [id number]-UZUEMTWCHARISSA CORLEY SHMG GRN ORT None No family history on file Level of Service:31922 [place] POSTOP FOLLOW UP VISIT RELATED TO ORIGINAL PX Reason for Visit and Comments: Post-op [483] - Left index MCP radial collateral ligament reconstruction using palmaris longus autograft and Tenolysis EDC and EIP left index finger Normal [facility] Progress Noteon 05-16-2025 Progress Note Subjective: Hollis [...] 36on 05-11-2025 36 Faxed and scanned to [employer] [facility] 36 Patient would like h is PT/OT order to be faxed to [facility] Physical therapy. States that location is closer and easier for him. FAX: [phone] Attn: Vaishnavi Atkins [facility] Office Visiton 05-09-2025 Follow-up visit [id number] Hollis Mascorro 1965 M Date Provider Department Center 05/09/2025 57513-VIZSTCHCHARISSA CORLEY SHMG GRN ORT None No family history on file Level of Service:26994 [place] POSTOP FOLLOW UP VISIT RELATED TO ORIGINAL PX Reason for Visit and Comments: Post-op [483] - Left index MCP radial collateral ligament reconstruction using palmaris longus autograft and Tenolysis EDC and EIP left index finger on 05/02/25 [facility] Progress Noteon 05-09-2025 Progress Note [facility] AT [facility] [address] [facility] [address] Dept: [phone] Dept OCCUPATIONAL THERAPY Orthotic Only Evaluation Patient [...] of formal therapy. Reason for Referral: Custom [id number]-[id number]-[id number] MP extension with IP joints free to move-confirmed by Dr. Nolasco. Treatment Guidelines: Protocol in op note. Paper copy given to patient is a will continue with a hand specialist closer to their home. 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 Precautions/Red Flags: Gentle MP AROM initiated [...] move. Splinting: Fabrication Splinting Education: Fitting, [place], [place], Wear schedule, Precautions Splinting Comments: Patient satisfied [...] like to attend formal therapy closer to [place] where he lives. He is accompanied today by his . 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 He states [...] 4 Number of attempts at approach: 1 [facility] Nursing Noteon 05-02-2025 Nursing Note Pt dressed with tom le assist-Tolerated activity well. States he is ready to go home. Normal [facility] Nursing Note Homegoing isntrucito ns given to pt and spouse verbally and written. Both verbalize understanding, no questions at this time. Pt set up on side of cart-denies any dizziness,pain,nausea. Normal [facility] Nursing Note Pt awake and drinkin g soda-tolerating well. Normal [facility] Nursing Note Pt opens eyes and an swers questions appropriately. Normal [facility] Nursing Note Pt received from OR via cart, spont. Resp. With MEMBERSHIP ADMINISTRATOR in attendance. Placed on monitor. Monitor alarms on in PACU Normal [facility] Op Noteon 05-02-2025 Op Note [facility] MA[facility] OR [address] [facility] [id number] Dept: [phone] Loc: [phone] Operative Report Patient Name: Hollis Mascorro Date [...] 1st Assist: Elva Heart MD 2nd Assist: Bridegr Justice PA-C Implants: Arthrex 3 mm tenodesis [...] patient's ASA was verified by the nurse waitress and the anesthesia staff. Fire risk was [...] joint was augustina irrigated normal saline. The crow RCL tissue was repaired in an imbricated [...] and post-op pain management Staffing Performed: ZULEYMA Resident/MEMBERSHIP ADMINISTRATOR: CHRISTOPHER Plascencia CRNA, RN Preanesthetic Checklist Completed: [...] Injection 25 mL - 05/02/2025 7:12:00 AM [facility] 2904-27-2025 29 Addended by: CAROLYN RODRIGUEZ on: 04/27/2025 01:43 PM Modules accepted: Orders [facility] 36on 04-27-2025 36 Custom splint order placed [facility] [address] anothe r order for a custom splint? Please hand based radial gutter [facility] [id number] 04-18-2025 [id number] Medication List Accurate as of April 18, [...] your scheduled surgery time. Please bring your [facility] Surgical folder and medication list with you [...] located here Patient will be escorted to [facility] [place] does not open before 6am [facility] [...] Auto (Unsp spec) [#/Vol] 1.69 10*3/uL 0.83-4.51 [facility] Absolute neutrophil countOrd ered By: Catherine Preciado on 03-27-2025 Neutrophils (Bld) [#/Vol] 3.7 10*3/uL 2.0-7.7 [facility] Anion gap in Serum or Plasma Ordered By: Catherine Preciado on 03-27-2025 Anion gap [Moles/Vol] 10 mmol/L 5-15 [facility] Automated lymphocyte count a s percentage of total leukocytesOrdered By: Catherine Preciado on 03-27-2025 Lymphocytes/100 WBC Auto (Unsp spec) 26.3 % 19-41 [facility] BUN/creatinine ratioOrdered By: Catherine Preciado on 03-27-2025 Urea nitrogen/Creatinine [Mass ratio] 14.2 mg/mg 10-20 [facility] Basophil percentageOrdered B y: Catherine Ozzy on 03-27-2025 Basophils/100 WBC (Bld) 0.8 % 0-1 [facility] Bilirubin, totalOrdered By: Catherine Ozzy on 03-27-2025 Bilirubin [Mass/Vol] 0.47 mg/dL 0.00-1.30 [facility] CBC W/Diff, Automatedon Absolute Lymph 1.69 X10 3/uL Normal 0.83-4.51 [facility] Comment on above: Performed By: #### L 500.4050, L100.0100 ####[facility] [address] [place], [address] Absolute Neut 3.7 X10 3/uL Normal 2.0-7.7 [facility] Comment on above: Performed By: #### L 500.4050, L100.0100 ####[facility] [address] [place], [address] Basophils/100 WBC (Bld) 0.8 % Normal 0-1 [facility] Comment on above: Performed By: #### L 500.4050, L100.0100 ####[facility] [address] [place], [address] Eosinophils/100 WBC (Bld) 4.7 % Normal 0-5 [facility] Comment on above: Performed By: #### L 500.4050, L100.0100 ####[facility] [address] [place], [address] Erythrocyte distribution width (RBC) [Ratio] 13.4 % Normal 11.6-14.6 [facility] Comment on above: Performed By: #### L 500.4050, L100.0100 ####[facility] [address] [place], [address] Hematocrit (Bld) [Volume fraction] 45.8 % Normal 40-54 [facility] Comment on above: Performed By: #### L 500.4050, L100.0100 ####[facility] [address] [place], [address] Hemoglobin (Bld) [Mass/Vol] 15.5 g/dL Normal 13.0-16.5 [facility] Comment on above: Performed By: #### L 500.4050, L100.0100 ####[facility] [address] [place], [address] IG% 0.500 Normal 0.0-0.9 [facility] Comment on above: Result Comment: IG% - Immature Granulocytes (promyelocytes, myelocytes and metamyelocytes) > 1% indicates that a LEFT SHIFT is Present. Performed By: #### L 500.4050, L100.0100 ####[facility] [address] [place], [address] Lymphocytes/100 WBC (Bld) 26.3 % Normal 19-41 [facility] Comment on above: Performed By: #### L 500.4050, L100.0100 ####[facility] [address] [place], [address] MCH (RBC) [Entitic mass] 32.3 pg High 27.0-32.0 [facility] Comment on above: Performed By: #### L 500.4050, L100.0100 ####[facility] [address] [place], [address] MCHC (RBC) [Mass/Vol] 33.8 g/dL Normal 32-36 [facility] Comment on above: Performed By: #### L 500.4050, L100.0100 ####[facility] [address] [place], [address] MCV (RBC) [Entitic vol] 95.4 fL High 80-94 [facility] Comment on above: Performed By: #### L 500.4050, L100.0100 ####[facility] [address] [place], [address] Monocytes/100 WBC (Bld) 10.9 % High 0-10 [facility] Comment on above: Performed By: #### L 500.4050, L100.0100 ####[facility] [address] [place], [address] Neutrophils/100 WBC (Bld) 56.8 % Normal 47-70 [facility] Comment on above: Performed By: #### L 500.4050, L100.0100 ####[facility] [address] [place], [address] Nucleated RBC (Bld) [#/Vol] 0 10*3/uL Normal 0-5 [facility] Comment on above: Performed By: #### L 500.4050, L100.0100 ####[facility] [address] [place], [address] Platelet mean volume (Bld) [Entitic vol] 10.4 fL Normal 6.2-12.0 [facility] Comment on above: Performed By: #### L 500.4050, L100.0100 ####[facility] [address] [place], [address] Platelets (Bld) [#/Vol] 244 10*3/uL Normal 150-450 [facility] Comment on above: Performed By: #### L 500.4050, L100.0100 ####[facility] [address] [place], [address] RBC (Bld) [#/Vol] 4.80 10*6/uL Normal 4.6-6.2 [facility] Comment on above: Performed By: #### L 500.4050, L100.0100 ####[facility] [address] [place], [address] RDW SD 47.0 fl High 35.1-43.9 [facility] Comment on above: Performed By: #### L 500.4050, L100.0100 ####[facility] [address] [place], [address] WBC (Bld) [#/Vol] 6.4 10*3/uL Normal 4.4-11.0 [facility] Comment on above: Performed By: #### L 500.4050, L100.0100 ####[facility] [address] [place], [address] Carbon dioxide, total [Moles /volume] in Central venous bloodOrdered By: Catherine Preciado on 03-27-2025 CO2 [Moles/Vol] 23.4 mmol/L 21.0-32.0 [facility] Chloride assayOrdered By: Beck Preciado on 03-27-2025 Chloride [Moles/Vol] 109 mmol/L High 98-108 [facility] Comprehensive Metabolic Prof ilon 03-27-2025 Albumin [Mass/Vol] 4.2 g/dL Normal 3.5-5.0 [facility] Comment on above: Performed By: #### L 500.4050, L100.0100 ####[facility] [address] [place], [address] Albumin/Globulin [Mass ratio] 1.5 {ratio} Normal 0.9-2.4 [facility] Comment on above: Performed By: #### L 500.4050, L100.0100 ####[facility] [address] [place], [address] ALK PHOS 92 U/L Normal 40-129 [facility] Comment on above: Performed By: #### L 500.4050, L100.0100 ####[facility] [address] [place], [address] ALT [Catalytic activity/Vol] 32 U/L Normal <=46 [facility] Comment on above: Performed By: #### L 500.4050, L100.0100 ####[facility] [address] [place], [address] AST [Catalytic activity/Vol] 32 U/L Normal <=37 [facility] Comment on above: Performed By: #### L 500.4050, L100.0100 ####[facility] [address] [place], [address] Bilirubin [Mass/Vol] 0.47 mg/dL Normal 0.00-1.30 [facility] Comment on above: Performed By: #### L 500.4050, L100.0100 ####[facility] [address] [place], [address] BUN/CRE 14.2 RATIO Normal 10-20 [facility] Comment on above: Performed By: #### L 500.4050, L100.0100 ####[facility] [address] [place], [address] Calcium [Mass/Vol] 9.2 mg/dL Normal 7.6-11.0 [facility] Comment on above: Performed By: #### L 500.4050, L100.0100 ####[facility] [address] [place], [address] Chloride [Moles/Vol] 109 mmol/L High 98-108 [facility] Comment on above: Performed By: #### L 500.4050, L100.0100 ####[facility] [address] [place], [address] CO2 [Moles/Vol] 23.4 mmol/L Normal 21.0-32.0 [facility] Comment on above: Performed By: #### L 500.4050, L100.0100 ####[facility] [address] [place], [address] Creatinine [Mass/Vol] 1.36 mg/dL High 0.70-1.20 [facility] Comment on above: Performed By: #### L 500.4050, L100.0100 ####[facility] [address] [place], [address] GAP 10 Normal 5-15 [facility] Comment on above: Performed By: #### L 500.4050, L100.0100 ####[facility] [address] [place], [address] GFR/1.73 sq M.predicted among non-blacks MDRD (S/P/Bld) [Vol rate/Area] 61 mL/min/{1.73_m2} Normal >60 [facility] Comment on above: Result Comment: mL/m in/1.73m2 CKD-EPI Creatinine Equation (2020) Performed By: #### L 500.4050, L100.0100 ####[facility] [address] [place], [address] Globulin (S) [Mass/Vol] 2.9 g/dL Normal 2.2-4.2 [facility] Comment on above: Performed By: #### L 500.4050, L100.0100 ####[facility] [address] [place], [address] Glucose [Mass/Vol] 135 mg/dL High 70-99 [facility] Comment on above: Performed By: #### L 500.4050, L100.0100 ####[facility] [address] [place], [address] Potassium [Moles/Vol] 4.1 mmol/L Normal 3.3-5.1 [facility] Comment on above: Performed By: #### L 500.4050, L100.0100 ####[facility] [address] [place], [address] Sodium [Moles/Vol] 143 mmol/L Normal 133-145 [facility] Comment on above: Performed By: #### L 500.4050, L100.0100 ####[facility] [address] [place], [address] T PROT 7.1 g/dL Normal 5.9-8.4 [facility] Comment on above: Performed By: #### L 500.4050, L100.0100 ####[facility] [address] [place], [address] Urea nitrogen [Mass/Vol] 19 mg/dL Normal 4-19 [facility] Comment on above: Performed By: #### L 500.4050, L100.0100 ####[facility] [address] [place], [address] Eosinophil percentageOrdered By: Catherine Preciado on 03-27-2025 Eosinophils/100 WBC (Bld) 4.7 % 0-5 [facility] Erythrocyte distribution wid th ratioOrdered By: [facility] Ozzy on 03-27-2025 Erythrocyte distribution width (RBC) [Ratio] 13.4 % 11.6-14.6 [facility] Erythrocyte distribution wid th standard deviationOrdered By: Catherine Preciado on 03-27-2025 Erythrocyte distribution width (RBC) [Ratio] 47.0 fl High 35.1-43.9 [facility] Glomerular filtration rate ( GFR) estimation/1.73 sq m using serum, plasma, or whole bOrdered By: Catherine Preciado on 03-27-2025 GFR/1.73 sq M.predicted among non-blacks MDRD (S/P/Bld) [Vol rate/Area] 61 mL/min/{1.73_m2} >60 [facility] Comment on above: mL/min/1.73m2 CKD-EP I Creatinine Equation (2020) Hematocrit Auto (Bld) [Volum e fraction]Ordered By: Catherine Preciado on 03-27-2025 Hematocrit (Bld) [Volume fraction] 45.8 % 40-54 [facility] Hemoglobin measurementOrdere d By: Catherine Preciado on 03-27-2025 Hemoglobin (Bld) [Mass/Vol] 15.5 g/dL 13.0-16.5 [facility] Immature granulocytes/100 WB C Auto (Bld)Ordered By: Catherine Preciado on 03-27-2025 Immature granulocytes/100 WBC (Bld) 0.500 % 0.0-0.9 [facility] Comment on above: IG% - Immature Granu locytes (promyelocytes, myelocytes and metamyelocytes) > 1% indicates that a LEFT SHIFT is Present. Laboratory - Chemistry and C hemistry - challengeOrdered By: Catherine Preciado on 03-27-2025 AST [Catalytic activity/Vol] 32 U/L <38 [facility] MCV (mean corpuscular volume ) determinationOrdered By: Catherine Preciado on 03-27-2025 MCV (RBC) [Entitic vol] 95.4 fL High 80-94 [facility] Mean corpuscular hemoglobin (MCH) determinationOrdered By: Catherine Preciado on 03-27-2025 MCH (RBC) [Entitic mass] 32.3 pg High 27.0-32.0 [facility] Mean corpuscular hemoglobin concentration (MCHC) determinationOrdered By: Catherine Preciado on 03-27-2025 MCHC (RBC) [Mass/Vol] 33.8 g/dL 32-36 [facility] Mean platelet volume determi nationOrdered By: Catherine Preciado on 03-27-2025 Platelet mean volume (Bld) [Entitic vol] 10.4 fL 6.2-12.0 [facility] Monocyte percentageOrdered B y: Catherine Preciado on 03-27-2025 Monocytes/100 WBC (Bld) 10.9 % High 0-10 [facility] Neutrophil percentageOrdered By: Catherine Preciado on 03-27-2025 Neutrophils/100 WBC (Bld) 56.8 % 47-70 [facility] Nucleated red blood cell per centageOrdered By: Catherine Preciado on 03-27-2025 Nucleated RBC/100 WBC (Bld) [Ratio] 0 % 0-5 [facility] Platelet countOrdered By: Beck Preciado on 03-27-2025 Platelets (Bld) [#/Vol] 244 10*3/uL 150-450 [facility] Potassium measurement (mass/ volume)Ordered By: Catherine Preciado on 03-27-2025 Potassium (Unsp spec) [Mass/Vol] 4.1 mmol/L 3.3-5.1 [facility] RBC Auto (Bld) [#/Vol]Ordere d By: Catherine Preciado on 03-27-2025 RBC (Bld) [#/Vol] 4.80 10*6/uL 4.6-6.2 [facility] Serum creatinine measurement (mass/volume)Ordered By: Catherine Preciado on 03-27-2025 Creatinine [Mass/Vol] 1.36 mg/dL High 0.70-1.20 [facility] Serum globulin measurementOr dered By: Catherine Preciado on 03-27-2025 Globulin (S) [Mass/Vol] 2.9 g/dL 2.2-4.2 [facility] Serum glucose measurement (m ass/volume)Ordered By: Catherine Preciado on 03-27-2025 Glucose [Mass/Vol] 135 mg/dL High 70-99 [facility] Serum or plasma alanine rivera otransferase (ALT) measurementOrdered By: Catherine Preciado on 03-27-2025 ALT [Catalytic activity/Vol] 32 U/L <47 [facility] Serum or plasma albumin britni urement (mass/volume)Ordered By: Catherine Preciado on 03-27-2025 Albumin [Mass/Vol] 4.2 g/dL 3.5-5.0 [facility] Serum or plasma albumin/glob ulin mass ratioOrdered By: Catherine Preciado on 03-27-2025 Albumin/Globulin [Mass ratio] 1.5 {ratio} 0.9-2.4 [facility] Serum or plasma alkaline addie sphatase measurementOrdered By: Catherine Preciado on 03-27-2025 ALP [Catalytic activity/Vol] 92 U/L 40-129 [facility] Serum or plasma calcium britni urement (mass/volume)Ordered By: Catherine Preciado on 03-27-2025 Calcium [Mass/Vol] 9.2 mg/dL 7.6-11.0 [facility] Serum or plasma urea nitroge n measurement (mass/volume)Ordered By: Catherine Preciado on 03-27-2025 Urea nitrogen [Mass/Vol] 19 mg/dL 4-19 [facility] Sodium levelOrdered By: Gloria Preciado on 03-27-2025 Sodium [Moles/Vol] 143 mmol/L 133-145 [facility] Total proteinOrdered By: Warren Preciado on 03-27-2025 Protein [Mass/Vol] 7.1 g/dL 5.9-8.4 [facility] White blood cell (WBC) count Ordered By: Catherine Preciado on 03-27-2025 WBC (Bld) [#/Vol] 6.4 10*3/uL 4.4-11.0 [facility] Absolute lymphocyte countOrd ered By: Catherine Preciado on 12-29-2024 Lymphocytes Auto (Unsp spec) [#/Vol] 1.97 10*3/uL 0.83-4.51 [facility] Absolute neutrophil countOrd ered By: Catherine Preciado on 12-29-2024 Neutrophils (Bld) [#/Vol] 5.1 10*3/uL 2.0-7.7 [facility] Anion gap in Serum or Plasma Ordered By: Catherine Preciado on 12-29-2024 Anion gap [Moles/Vol] 11 mmol/L 5-15 [facility] Automated lymphocyte count a s percentage of total leukocytesOrdered By: Catherine Preciado on 12-29-2024 Lymphocytes/100 WBC Auto (Unsp spec) 22.6 % 19-41 [facility] BUN/creatinine ratioOrdered By: Catherine Preciado on 12-29-2024 Urea nitrogen/Creatinine [Mass ratio] 16.8 mg/mg 10-20 [facility] Basophil percentageOrdered B y: Catherine Preciado on 12-29-2024 Basophils/100 WBC (Bld) 1.0 % 0-1 [facility] Bilirubin, totalOrdered By: Catherine Preciado on 12-29-2024 Bilirubin [Mass/Vol] 0.31 mg/dL 0.00-1.30 [facility] CBC W/Diff, Automatedon 04-1 0-2024 Absolute Lymph 1.97 X10 3/uL Normal 0.83-4.51 [facility] Comment on above: Performed By: #### L 500.4050, L100.0100 #### [facility] [address] [place], [address] Absolute Neut 5.1 X10 3/uL Normal 2.0-7.7 [facility] Comment on above: Performed By: #### L 500.4050, L100.0100 #### [facility] [address] [place], [address] Basophils/100 WBC (Bld) 1.0 % Normal 0-1 [facility] Comment on above: Performed By: #### L 500.4050, L100.0100 #### [facility] [address] [place], [address] Eosinophils/100 WBC (Bld) 3.2 % Normal 0-5 [facility] Comment on above: Performed By: #### L 500.4050, L100.0100 #### [facility] [address] [place], [address] Erythrocyte distribution width (RBC) [Ratio] 12.9 % Normal 11.6-14.6 [facility] Comment on above: Performed By: #### L 500.4050, L100.0100 #### [facility] [address] [place], [address] Hematocrit (Bld) [Volume fraction] 45.5 % Normal 40-54 [facility] Comment on above: Performed By: #### L 500.4050, L100.0100 #### [facility] [address] [place], [address] Hemoglobin (Bld) [Mass/Vol] 15.8 g/dL Normal 13.0-16.5 [facility] Comment on above: Performed By: #### L 500.4050, L100.0100 #### [facility] [address] [place], [address] IG% 0.800 Normal 0.0-0.9 [facility] Comment on above: Result Comment: IG% - Immature Granulocytes (promyelocytes, myelocytes and metamyelocytes) > 1% indicates that a LEFT SHIFT is Present. Performed By: #### L 500.4050, L100.0100 #### [facility] [address] [place], [address] Lymphocytes/100 WBC (Bld) 22.6 % Normal 19-41 [facility] Comment on above: Performed By: #### L 500.4050, L100.0100 #### [facility] [address] [place], [address] MCH (RBC) [Entitic mass] 32.6 pg High 27.0-32.0 [facility] Comment on above: Performed By: #### L 500.4050, L100.0100 #### [facility] [address] [place], [address] MCHC (RBC) [Mass/Vol] 34.7 g/dL Normal 32-36 [facility] Comment on above: Performed By: #### L 500.4050, L100.0100 #### [facility] [address] [place], [address] MCV (RBC) [Entitic vol] 94.0 fL Normal 80-94 [facility] Comment on above: Performed By: #### L 500.4050, L100.0100 #### [facility] [address] [place], [address] Monocytes/100 WBC (Bld) 14.3 % High 0-10 [facility] Comment on above: Performed By: #### L 500.4050, L100.0100 #### [facility] [address] [place], [address] Neutrophils/100 WBC (Bld) 58.1 % Normal 47-70 [facility] Comment on above: Performed By: #### L 500.4050, L100.0100 #### [facility] [address] [place], [address] Nucleated RBC (Bld) [#/Vol] 0 10*3/uL Normal 0-5 [facility] Comment on above: Performed By: #### L 500.4050, L100.0100 #### [facility] [address] [place], [address] Platelet mean volume (Bld) [Entitic vol] 10.1 fL Normal 6.2-12.0 [facility] Comment on above: Performed By: #### L 500.4050, L100.0100 #### [facility] [address] [place], [address] Platelets (Bld) [#/Vol] 249 10*3/uL Normal 150-450 [facility] Comment on above: Performed By: #### L 500.4050, L100.0100 #### [facility] [address] [place], [address] RBC (Bld) [#/Vol] 4.84 10*6/uL Normal 4.6-6.2 [facility] Comment on above: Performed By: #### L 500.4050, L100.0100 #### [facility] [address] [place], [address] RDW SD 44.2 fl High 35.1-43.9 [facility] Comment on above: Performed By: #### L 500.4050, L100.0100 #### [facility] [address] [place], [address] WBC (Bld) [#/Vol] 8.7 10*3/uL Normal 4.4-11.0 [facility] Comment on above: Performed By: #### L 500.4050, L100.0100 #### [facility] [address] [place], [address] Carbon dioxide, total [Moles /volume] in Central venous bloodOrdered By: Catherine Preciado on 12-29-2024 CO2 [Moles/Vol] 23.5 mmol/L 21.0-32.0 [facility] Chloride assayOrdered By: Beck Preciado on 12-29-2024 Chloride [Moles/Vol] 105 mmol/L 98-108 [facility] Comprehensive Metabolic Prof ilon 12-29-2024 Albumin [Mass/Vol] 4.2 g/dL Normal 3.5-5.0 [facility] Comment on above: Performed By: #### L 500.4050, L100.0100 #### [facility] [address] [place], [address] Albumin/Globulin [Mass ratio] 1.3 {ratio} Normal 0.9-2.4 [facility] Comment on above: Performed By: #### L 500.4050, L100.0100 #### [facility] [address] [place], [address] ALK PHOS 82 U/L Normal 40-129 [facility] Comment on above: Performed By: #### L 500.4050, L100.0100 #### [facility] [address] [place], [address] ALT [Catalytic activity/Vol] 25 U/L Normal <=46 [facility] Comment on above: Performed By: #### L 500.4050, L100.0100 #### [facility] [address] [place], [address] AST [Catalytic activity/Vol] 26 U/L Normal <=37 [facility] Comment on above: Performed By: #### L 500.4050, L100.0100 #### [facility] [address] [place], [address] Bilirubin [Mass/Vol] 0.31 mg/dL Normal 0.00-1.30 [facility] Comment on above: Performed By: #### L 500.4050, L100.0100 #### [facility] [address] [place], [address] BUN/CRE 16.8 RATIO Normal 10-20 [facility] Comment on above: Performed By: #### L 500.4050, L100.0100 #### [facility] [address] [place], [address] Calcium [Mass/Vol] 9.1 mg/dL Normal 7.6-11.0 [facility] Comment on above: Performed By: #### L 500.4050, L100.0100 #### [facility] [address] [place], [address] Chloride [Moles/Vol] 105 mmol/L Normal 98-108 [facility] Comment on above: Performed By: #### L 500.4050, L100.0100 #### [facility] [facility] [address] [place], [address] CO2 [Moles/Vol] 23.5 mmol/L Normal 21.0-32.0 [facility] Comment on above: Performed By: #### L 500.4050, L100.0100 #### [facility] [address] [place], [address] Creatinine [Mass/Vol] 1.06 mg/dL Normal 0.70-1.20 [facility] Comment on above: Performed By: #### L 500.4050, L100.0100 #### [facility] [address] [place], [address] GAP 11 Normal 5-15 [facility] Comment on above: Performed By: #### L 500.4050, L100.0100 #### [facility] [address] [place], [address] GFR/1.73 sq M.predicted among non-blacks MDRD (S/P/Bld) [Vol rate/Area] 82 mL/min/{1.73_m2} Normal >60 [facility] Comment on above: Result Comment: mL/m in/1.73m2 CKD-EPI Creatinine Equation (2020) Performed By: #### L 500.4050, L100.0100 #### [facility] [address] [place], [address] Globulin (S) [Mass/Vol] 3.1 g/dL Normal 2.2-4.2 [facility] Comment on above: Performed By: #### L 500.4050, L100.0100 #### [facility] [address] [place], [address] Glucose [Mass/Vol] 96 mg/dL Normal 70-99 [facility] Comment on above: Performed By: #### L 500.4050, L100.0100 #### [facility] [address] [place], [address] Potassium [Moles/Vol] 4.3 mmol/L Normal 3.3-5.1 [facility] Comment on above: Performed By: #### L 500.4050, L100.0100 #### [facility] [address] [place], [address] Sodium [Moles/Vol] 139 mmol/L Normal 133-145 [facility] Comment on above: Performed By: #### L 500.4050, L100.0100 #### [facility] [address] [place], [address] T PROT 7.3 g/dL Normal 5.9-8.4 [facility] Comment on above: Performed By: #### L 500.4050, L100.0100 #### [facility] [address] [place], [address] Urea nitrogen [Mass/Vol] 18 mg/dL Normal 4-19 [facility] Comment on above: Performed By: #### L 500.4050, L100.0100 #### [facility] [address] [place], [address] Eosinophil percentageOrdered By: Catherine Preciado on 12-29-2024 Eosinophils/100 WBC (Bld) 3.2 % 0-5 [facility] Erythrocyte distribution wid th (RBC) [Ratio]Ordered By: Catherine Preciado on 12-29-2024 Erythrocyte distribution width (RBC) [Entitic vol] 44.2 fL High 35.1-43.9 [facility] Erythrocyte distribution wid th ratioOrdered By: Catherine Preciado on 12-29-2024 Erythrocyte distribution width (RBC) [Ratio] 12.9 % 11.6-14.6 [facility] Erythrocyte distribution wid th standard deviationOrdered By: Catherine Preciado on 12-29-2024 Erythrocyte distribution width (RBC) [Ratio] 44.2 fl High 35.1-43.9 [facility] GFR/1.73 sq M.predicted derrick g non-blacks MDRD (S/P/Bld) [Vol rate/Area]Ordered By: Catherine Preciado on 12-29-2024 Estimated GFR (MDRD) Non-Af Amer 82 >60 [facility] Comment on above: mL/min/1.73m2 CKD-EP I Creatinine Equation (2020) Glomerular filtration rate ( GFR) estimation/1.73 sq m using serum, plasma, or whole bOrdered By: Catherine Preciado on 12-29-2024 GFR/1.73 sq M.predicted among non-blacks MDRD (S/P/Bld) [Vol rate/Area] 82 mL/min/{1.73_m2} >60 [facility] Comment on above: mL/min/1.73m2 CKD-EP I Creatinine Equation (2020) Hematocrit Auto (Bld) [Volum e fraction]Ordered By: Catherine Preciado on 12-29-2024 Hematocrit (Bld) [Volume fraction] 45.5 % 40-54 [facility] Hemoglobin measurementOrdere d By: Catherine Preciado on 12-29-2024 Hemoglobin (Bld) [Mass/Vol] 15.8 g/dL 13.0-16.5 [facility] Immature granulocytes/100 WB C Auto (Bld)Ordered By: Catherine Preciado on 12-29-2024 Immature granulocytes/100 WBC (Bld) 0.800 % 0.0-0.9 [facility] Comment on above: IG% - Immature Granu locytes (promyelocytes, myelocytes and metamyelocytes) > 1% indicates that a LEFT SHIFT is Present. Laboratory - Chemistry and C hemistry - challengeOrdered By: Catherine Preciado on 12-29-2024 AST [Catalytic activity/Vol] 26 U/L <38 [facility] Lymphocytes Auto (Unsp spec) [#/Vol]Ordered By: Catherine Preciado on 12-29-2024 Lymphocytes (Bld) [#/Vol] 1.97 10*3/uL 0.83-4.51 [facility] Lymphocytes/100 WBC Auto (Un sp spec)Ordered By: Catherine Preciado on 12-29-2024 Lymphocytes/100 WBC (Bld) 22.6 % 19-41 [facility] MCV (mean corpuscular volume ) determinationOrdered By: Catherine Preciado on 12-29-2024 MCV (RBC) [Entitic vol] 94.0 fL 80-94 [facility] Mean corpuscular hemoglobin (MCH) determinationOrdered By: Catherine Preciado on 12-29-2024 MCH (RBC) [Entitic mass] 32.6 pg High 27.0-32.0 [facility] Mean corpuscular hemoglobin concentration (MCHC) determinationOrdered By: Catherine Preciado on 12-29-2024 MCHC (RBC) [Mass/Vol] 34.7 g/dL 32-36 [facility] Mean platelet volume determi nationOrdered By: Catherine Preciado on 12-29-2024 Platelet mean volume (Bld) [Entitic vol] 10.1 fL 6.2-12.0 [facility] Monocyte percentageOrdered B y: Catherine Preciado on 12-29-2024 Monocytes/100 WBC (Bld) 14.3 % High 0-10 [facility] Neutrophil percentageOrdered By: Catherine Preciado on 12-29-2024 Neutrophils/100 WBC (Bld) 58.1 % 47-70 [facility] Nucleated red blood cell per centageOrdered By: Catherine Preciado on 12-29-2024 Nucleated RBC/100 WBC (Bld) [Ratio] 0 % 0-5 [facility] Platelet countOrdered By: Beck Preciado on 12-29-2024 Platelets (Bld) [#/Vol] 249 10*3/uL 150-450 [facility] Potassium (Unsp spec) [Mass/ Vol]Ordered By: Catherine Preciado on 12-29-2024 Potassium [Moles/Vol] 4.3 mmol/L 3.3-5.1 [facility] Potassium measurement (mass/ volume)Ordered By: Catherine Preciado on 12-29-2024 Potassium (Unsp spec) [Mass/Vol] 4.3 mmol/L 3.3-5.1 [facility] RBC Auto (Bld) [#/Vol]Ordere d By: Catherine Preciado on 12-29-2024 RBC (Bld) [#/Vol] 4.84 10*6/uL 4.6-6.2 [facility] Serum creatinine measurement (mass/volume)Ordered By: Catherine Preciado on 12-29-2024 Creatinine [Mass/Vol] 1.06 mg/dL 0.70-1.20 [facility] Serum globulin measurementOr dered By: Catherine Preciado on 12-29-2024 Globulin (S) [Mass/Vol] 3.1 g/dL 2.2-4.2 [facility] Serum glucose measurement (m ass/volume)Ordered By: Catherine Preciado on 12-29-2024 Glucose [Mass/Vol] 96 mg/dL 70-99 [facility] Serum or plasma alanine rivera otransferase (ALT) measurementOrdered By: Catherine Preciado on 12-29-2024 ALT [Catalytic activity/Vol] 25 U/L <47 [facility] Serum or plasma albumin britni urement (mass/volume)Ordered By: Catherine Preciado on 12-29-2024 Albumin [Mass/Vol] 4.2 g/dL 3.5-5.0 [facility] Serum or plasma albumin/glob ulin mass ratioOrdered By: Catherine Preciado on 12-29-2024 Albumin/Globulin [Mass ratio] 1.3 {ratio} 0.9-2.4 [facility] Serum or plasma alkaline addie sphatase measurementOrdered By: Catherine Preciado on 12-29-2024 ALP [Catalytic activity/Vol] 82 U/L 40-129 [facility] Serum or plasma calcium britni urement (mass/volume)Ordered By: Catherine Preciado on 12-29-2024 Calcium [Mass/Vol] 9.1 mg/dL 7.6-11.0 [facility] Serum or plasma urea nitroge n measurement (mass/volume)Ordered By: Catherine Preciado on 12-29-2024 Urea nitrogen [Mass/Vol] 18 mg/dL 4-19 [facility] Sodium levelOrdered By: Gloria Preciado on 12-29-2024 Sodium [Moles/Vol] 139 mmol/L 133-145 [facility] Total proteinOrdered By: Warren Preciado on 12-29-2024 Protein [Mass/Vol] 7.3 g/dL 5.9-8.4 [facility] White blood cell (WBC) count Ordered By: Catherine Preciado on 12-29-2024 WBC (Bld) [#/Vol] 8.7 10*3/uL 4.4-11.0 [facility] Absolute neutrophil countOrd ered By: Catherine Preciado on 10-05-2024 Neutrophils (Bld) [#/Vol] 5.1 10*3/uL 2.0-7.7 [facility] Albumin to globulin ratioOrd ered By: Catherine Preciado on 10-05-2024 Albumin/Globulin [Mass ratio] 1.0 {ratio} 0.9-2.4 [facility] Basophil percentageOrdered B y: Catherine Preciado on 10-05-2024 Basophils/100 WBC (Bld) 0.9 % 0-1 [facility] Bilirubin, totalOrdered By: Catherine Preciado on 10-05-2024 Bilirubin [Mass/Vol] 0.40 mg/dL 0.20-1.00 [facility] Comment on above: For patients on eltr ombopag therapy, use of Dimension [place] TBIL is not recommended. Blood urea nitrogen (BUN)/cr eatinine ratioOrdered By: Catherine Preciado on 10-05-2024 Urea nitrogen/Creatinine [Mass ratio] 16.0 mg/mg 10-20 [facility] CBC W/Diff, Automatedon 09-21 Absolute Lymph 2.23 X10 3/uL Normal 0.83-4.51 [facility] Comment on above: Performed By: #### L 100.0100, L500.4050 #### [facility] [address] [place], [address] Absolute Neut 5.1 X10 3/uL Normal 2.0-7.7 [facility] Comment on above: Performed By: #### L 100.0100, L500.4050 #### [facility] [address] [place], [address] Basophils/100 WBC (Bld) 0.9 % Normal 0-1 [facility] Comment on above: Performed By: #### L 100.0100, L500.4050 #### [facility] [address] [place], [address] Eosinophils/100 WBC (Bld) 2.8 % Normal 0-5 [facility] Comment on above: Performed By: #### L 100.0100, L500.4050 #### [facility] [address] [place], [address] Erythrocyte distribution width (RBC) [Ratio] 13.2 % Normal 11.6-14.6 [facility] Comment on above: Performed By: #### L 100.0100, L500.4050 #### [facility] [address] [place], [address] Hematocrit (Bld) [Volume fraction] 46.7 % Normal 40-54 [facility] Comment on above: Performed By: #### L 100.0100, L500.4050 #### [facility] [address] [place], [address] Hemoglobin (Bld) [Mass/Vol] 16.2 g/dL Normal 13.0-16.5 [facility] Comment on above: Performed By: #### L 100.0100, L500.4050 #### [facility] [address] [place], [address] IG% 0.300 Normal 0.0-0.9 [facility] Comment on above: Result Comment: IG% - Immature Granulocytes (promyelocytes, myelocytes and metamyelocytes) > 1% indicates that a LEFT SHIFT is Present. Performed By: #### L 100.0100, L500.4050 #### [facility] [address] [place], [address] Lymphocytes/100 WBC (Bld) 25.8 % Normal 19-41 [facility] Comment on above: Performed By: #### L 100.0100, L500.4050 #### [facility] [address] [place], [address] MCH (RBC) [Entitic mass] 32.2 pg High 27.0-32.0 [facility] Comment on above: Performed By: #### L 100.0100, L500.4050 #### [facility] [address] [place], [address] MCHC (RBC) [Mass/Vol] 34.7 g/dL Normal 32-36 [facility] Comment on above: Performed By: #### L 100.0100, L500.4050 #### [facility] [address] [place], [address] MCV (RBC) [Entitic vol] 92.8 fL Normal 80-94 [facility] Comment on above: Performed By: #### L 100.0100, L500.4050 #### [facility] [address] [place], [address] Monocytes/100 WBC (Bld) 11.4 % High 0-10 [facility] Comment on above: Performed By: #### L 100.0100, L500.4050 #### [facility] [address] [place], [address] Neutrophils/100 WBC (Bld) 58.8 % Normal 47-70 [facility] Comment on above: Performed By: #### L 100.0100, L500.4050 #### [facility] [address] [place], [address] Nucleated RBC (Bld) [#/Vol] 0 10*3/uL Normal 0-5 [facility] Comment on above: Performed By: #### L 100.0100, L500.4050 #### [facility] [address] [place], [address] Platelet mean volume (Bld) [Entitic vol] 9.6 fL Normal 6.2-12.0 [facility] Comment on above: Performed By: #### L 100.0100, L500.4050 #### [facility] [address] [place], [address] Platelets (Bld) [#/Vol] 263 10*3/uL Normal 150-450 [facility] Comment on above: Performed By: #### L 100.0100, L500.4050 #### [facility] [address] [place], [address] RBC (Bld) [#/Vol] 5.03 10*6/uL Normal 4.6-6.2 [facility] Comment on above: Performed By: #### L 100.0100, L500.4050 #### [facility] [address] [place], [address] RDW SD 45.0 fl High 35.1-43.9 [facility] Comment on above: Performed By: #### L 100.0100, L500.4050 #### [facility] [address] [place], [address] WBC (Bld) [#/Vol] 8.7 10*3/uL Normal 4.4-11.0 [facility] Comment on above: Performed By: #### L 100.0100, L500.4050 #### [facility] [address] [place], [address] Carbon dioxide measurementOr dered By: Catherine Preciado on 10-05-2024 CO2 [Moles/Vol] 26.0 mmol/L 21.0-32.0 [facility] Chloride measurementOrdered By: Catherine Preciado on 10-05-2024 Chloride [Moles/Vol] 107 mmol/L 98-107 [facility] Comprehensive Metabolic Prof ilon 10-05-2024 Albumin [Mass/Vol] 3.9 g/dL Normal 3.2-5.0 [facility] Comment on above: Performed By: #### L 100.0100, L500.4050 ####[facility] [address] [place], [address] Albumin/Globulin [Mass ratio] 1.0 {ratio} Normal 0.9-2.4 [facility] Comment on above: Performed By: #### L 100.0100, L500.4050 ####[facility] [address] [place], [address] ALK P 93 U/L Normal 45-117 [facility] Comment on above: Performed By: #### L 100.0100, L500.4050 ####[facility] [address] [place], [address] ALT [Catalytic activity/Vol] 31 U/L Normal 16-61 [facility] Comment on above: Performed By: #### L 100.0100, L500.4050 ####[facility] [address] [place], [address] AST [Catalytic activity/Vol] 24 U/L Normal 15-37 [facility] Comment on above: Performed By: #### L 100.0100, L500.4050 ####[facility] [address] [place], [address] Bilirubin [Mass/Vol] 0.40 mg/dL Normal 0.20-1.00 [facility] Comment on above: Result Comment: For patients on eltrombopag therapy, use of Dimension [place] TBIL is not recommended. Performed By: #### L 100.0100, L500.4050 ####[facility] [address] [place], [address] BUN/CRE 16.0 RATIO Normal 10-20 [facility] Comment on above: Performed By: #### L 100.0100, L500.4050 ####[facility] [address] [place], [address] CA,Total 9.3 mg/dL Normal 8.5-10.1 [facility] Comment on above: Performed By: #### L 100.0100, L500.4050 ####[facility] [address] [place], [address] Chloride [Moles/Vol] 107 mmol/L Normal 98-107 [facility] Comment on above: Performed By: #### L 100.0100, L500.4050 ####[facility] [address] [place], [address] CO2 [Moles/Vol] 26.0 mmol/L Normal 21.0-32.0 [facility] Comment on above: Performed By: #### L 100.0100, L500.4050 ####[facility] [address] [place], [address] Creatinine [Mass/Vol] 1.00 mg/dL Normal 0.70-1.30 [facility] Comment on above: Result Comment: The validity of the calculated GFR GFRAA in patients over 70 years has not been determined. Clinical correlation is essential. Performed By: #### L 100.0100, L500.4050 ####[facility] [address] [place], [address] EST GFR - AA 99 mL/min Normal >60 [facility] Comment on above: Result Comment: Afri can [place] GFR Calc Performed By: #### L 100.0100, L500.4050 ####[facility] [address] [place], [address] GAP 6 Normal 5-15 [facility] Comment on above: Performed By: #### L 100.0100, L500.4050 ####[facility] [address] [place], [address] GFR/1.73 sq M.predicted among non-blacks MDRD (S/P/Bld) [Vol rate/Area] 82 mL/min/{1.73_m2} Normal >60 [facility] Comment on above: Result Comment: Non- GFR Calc Performed By: #### L 100.0100, L500.4050 ####[facility] [address] [place], [address] Globulin (S) [Mass/Vol] 3.9 g/dL Normal 2.2-4.2 [facility] Comment on above: Performed By: #### L 100.0100, L500.4050 ####[facility] [address] [place], [address] Glucose [Mass/Vol] 95 mg/dL Normal 74-106 [facility] Comment on above: Performed By: #### L 100.0100, L500.4050 ####[facility] [address] [place], [address] Potassium [Moles/Vol] 3.6 mmol/L Normal 3.5-5.1 [facility] Comment on above: Performed By: #### L 100.0100, L500.4050 ####[facility] [address] [place], [address] Sodium [Moles/Vol] 139 mmol/L Normal 136-145 [facility] Comment on above: Performed By: #### L 100.0100, L500.4050 ####[facility] [address] [place], [address] T PROT 7.8 g/dL Normal 6.4-8.2 [facility] Comment on above: Performed By: #### L 100.0100, L500.4050 ####[facility] [address] [place], [address] Urea nitrogen [Mass/Vol] 16 mg/dL Normal 7-18 [facility] Comment on above: Performed By: #### L 100.0100, L500.4050 ####[facility] [address] [place], [address] Eosinophil percentageOrdered By: Catherine Precidao on 10-05-2024 Eosinophils/100 WBC (Bld) 2.8 % 0-5 [facility] Erythrocyte distribution wid th (RBC) [Ratio]Ordered By: Catherine Preciado on 10-05-2024 Erythrocyte distribution width (RBC) [Entitic vol] 45.0 fL High 35.1-43.9 [facility] Erythrocyte distribution wid th ratioOrdered By: Catherine Preciado on 10-05-2024 Erythrocyte distribution width (RBC) [Ratio] 13.2 % 11.6-14.6 [facility] Estimated glomerular filtrat ion rate (GFR) AmericanOrdered By: Catherine Preciado on 10-05-2024 Estimated GFR (MDRD) Amer 99 mL/min >60 [facility] Comment on above: GFR Calc Glomerular filtration rate ( GFR) estimationOrdered By: Catherine Preciado on 10-05-2024 Estimated GFR (MDRD) Non-Af Amer 82 mL/min >60 [facility] Comment on above: Non- GFR Calc Glucose measurementOrdered B y: Catherine Preciado on 10-05-2024 Glucose [Mass/Vol] 95 mg/dL 74-106 [facility] Hematocrit Auto (Bld) [Volum e fraction]Ordered By: Catherine Preciado on 10-05-2024 Hematocrit (Bld) [Volume fraction] 46.7 % 40-54 [facility] Hemoglobin measurementOrdere d By: Catherine Preciado on 10-05-2024 Hemoglobin (Bld) [Mass/Vol] 16.2 g/dL 13.0-16.5 [facility] Immature granulocytes/100 WB C Auto (Bld)Ordered By: Catherine Preciado on 10-05-2024 Immature granulocytes/100 WBC (Bld) 0.300 % 0.0-0.9 [facility] Comment on above: IG% - Immature Granu locytes (promyelocytes, myelocytes and metamyelocytes) > 1% indicates that a LEFT SHIFT is Present. Laboratory - Chemistry and C hemistry - challengeOrdered By: Catherine Preciado on 10-05-2024 AST [Catalytic activity/Vol] 24 U/L 15-37 [facility] Lymphocytes Auto (Unsp spec) [#/Vol]Ordered By: Catherine Preciado on 10-05-2024 Lymphocytes (Bld) [#/Vol] 2.23 10*3/uL 0.83-4.51 [facility] Lymphocytes/100 WBC Auto (Un sp spec)Ordered By: Catherine Preciado on 10-05-2024 Lymphocytes/100 WBC (Bld) 25.8 % 19-41 [facility] MCV (mean corpuscular volume ) determinationOrdered By: Catherine Preciado on 10-05-2024 MCV (RBC) [Entitic vol] 92.8 fL 80-94 [facility] Mean corpuscular hemoglobin (MCH) determinationOrdered By: Catherine Preciado on 10-05-2024 MCH (RBC) [Entitic mass] 32.2 pg High 27.0-32.0 [facility] Mean corpuscular hemoglobin concentration (MCHC) determinationOrdered By: Catherine Preciado on 10-05-2024 MCHC (RBC) [Mass/Vol] 34.7 g/dL 32-36 [facility] Mean platelet volume determi nationOrdered By: Catherine Preciado on 10-05-2024 Platelet mean volume (Bld) [Entitic vol] 9.6 fL 6.2-12.0 [facility] Monocyte percentageOrdered B y: Catherine Preciado on 10-05-2024 Monocytes/100 WBC (Bld) 11.4 % High 0-10 [facility] Neutrophil percentageOrdered By: Catherine Preciado on 10-05-2024 Neutrophils/100 WBC (Bld) 58.8 % 47-70 [facility] Nucleated red blood cell per centageOrdered By: Catherine Preciado on 10-05-2024 Nucleated RBC/100 WBC (Bld) [Ratio] 0 % 0-5 [facility] Platelet countOrdered By: Beck Preciado on 10-05-2024 Platelets (Bld) [#/Vol] 263 10*3/uL 150-450 [facility] Potassium measurementOrdered By: Catherine Preciado on 10-05-2024 Potassium [Moles/Vol] 3.6 mmol/L 3.5-5.1 [facility] RBC Auto (Bld) [#/Vol]Ordere d By: Catherine Preciado on 10-05-2024 RBC (Bld) [#/Vol] 5.03 10*6/uL 4.6-6.2 [facility] Serum anion gap measurementO rdered By: Catherine Preciado on 10-05-2024 Anion gap [Moles/Vol] 6 mmol/L 5-15 [facility] Serum globulin measurementOr dered By: Catherine Preciado on 10-05-2024 Globulin (S) [Mass/Vol] 3.9 g/dL 2.2-4.2 [facility] Serum or plasma alanine rivera otransferase (ALT) measurementOrdered By: Catherine Preciado on 10-05-2024 ALT [Catalytic activity/Vol] 31 U/L 16-61 [facility] Serum or plasma albumin britni urement (mass/volume)Ordered By: Catherine Preciado on 10-05-2024 Albumin [Mass/Vol] 3.9 g/dL 3.2-5.0 [facility] Serum or plasma alkaline addie sphatase measurementOrdered By: Catherine Preciado on 10-05-2024 ALP [Catalytic activity/Vol] 93 U/L 45-117 [facility] Serum or plasma calcium britni urement (mass/volume)Ordered By: Catherine Preciado on 10-05-2024 Calcium [Mass/Vol] 9.3 mg/dL 8.5-10.1 [facility] Serum or plasma creatinine m easurement (mass/volume)Ordered By: Catherine Preciado on 10-05-2024 Creatinine [Mass/Vol] 1.00 mg/dL 0.70-1.30 [facility] Comment on above: The validity of the calculated GFR & GFRAA in patients over 70 years has not been determined. Clinical correlation is essential. Serum or plasma urea nitroge n measurement (mass/volume)Ordered By: Catherine Preciado on 10-05-2024 Urea nitrogen [Mass/Vol] 16 mg/dL 7-18 [facility] Sodium levelOrdered By: Gloria Preciado on 10-05-2024 Sodium [Moles/Vol] 139 mmol/L 136-145 [facility] Total proteinOrdered By: Warren Preciado on 10-05-2024 Protein [Mass/Vol] 7.8 g/dL 6.4-8.2 [facility] White blood cell (WBC) count Ordered By: Catherine Preciado on 10-05-2024 WBC (Bld) [#/Vol] 8.7 10*3/uL 4.4-11.0 [facility] 36on 10-03-2024 36 Pt is rescheduled fo [...] Details Calendar done Clearance no Case # [id number] Authorization Jess Armendariz [id number] clinicals PAT Day/Time done PAT Orders to Jain done Splint yes IPO 05/08 @ 11a [facility] SCHEDULING SLIP Patient: Hollis Mascorro Date of : 1965 Date of Surgery: Next available Day of Surgery: [facility]: [place] Duration: 2hrs Type: Outpatient PAT: Yes - tele Med Clearance: No Anesthesia: MAC Block: Regional Position: Supine Table: Stretcher Arm Board: Roll-up arm table Radiology: Small C-Arm CPT Code: 96351 Consent: Left index finger MCP radial collateral [...] of caller: Lily Mascorro Contact phone number: [phone] Relationship to Patient: patient Provider: Dr. Nolasco Practice: Ortho Chief Complaint/Reason for Call: Patient was requesting a call back, as he saw Dr. Nolasco on 05/09, he is wanting to go ahead with surgery. Please advise Best time of day caller can be reached: any Patient advised that office/PCP has 24-48 business hours to return their call: Yes Normal [facility] CBC W/Diff, Automatedon 10-2 -2023 Absolute Lymph 1.73 X10 3/uL Normal 0.83-4.51 [facility] Comment on above: Performed By: #### L 500.4050, L100.0100 #### [facility] [address] [place], [address] Absolute Neut 5.2 X10 3/uL Normal 2.0-7.7 [facility] Comment on above: Performed By: #### L 500.4050, L100.0100 #### [facility] [address] [place], [address] Basophils/100 WBC (Bld) 0.9 % Normal 0-1 [facility] Comment on above: Performed By: #### L 500.4050, L100.0100 #### [facility] [address] [place], [address] Eosinophils/100 WBC (Bld) 3.7 % Normal 0-5 [facility] Comment on above: Performed By: #### L 500.4050, L100.0100 #### [facility] [address] [place], [address] Erythrocyte distribution width (RBC) [Ratio] 13.5 % Normal 11.6-14.6 [facility] Comment on above: Performed By: #### L 500.4050, L100.0100 #### [facility] [address] [place], [address] Hematocrit (Bld) [Volume fraction] 44.2 % Normal 40-54 [facility] Comment on above: Performed By: #### L 500.4050, L100.0100 #### [facility] [address] [place], [address] Hemoglobin (Bld) [Mass/Vol] 15.1 g/dL Normal 13.0-16.5 [facility] Comment on above: Performed By: #### L 500.4050, L100.0100 #### [facility] [address] [place], [address] IG% 0.600 Normal 0.0-0.9 [facility] Comment on above: Result Comment: IG% - Immature Granulocytes (promyelocytes, myelocytes and metamyelocytes) > 1% indicates that a LEFT SHIFT is Present. Performed By: #### L 500.4050, L100.0100 #### [facility] [address] [place], [address] Lymphocytes/100 WBC (Bld) 20.1 % Normal 19-41 [facility] Comment on above: Performed By: #### L 500.4050, L100.0100 #### [facility] [address] [place], [address] MCH (RBC) [Entitic mass] 32.3 pg High 27.0-32.0 [facility] Comment on above: Performed By: #### L 500.4050, L100.0100 #### [facility] [address] [place], [address] MCHC (RBC) [Mass/Vol] 34.2 g/dL Normal 32-36 [facility] Comment on above: Performed By: #### L 500.4050, L100.0100 #### [facility] [address] [place], [address] MCV (RBC) [Entitic vol] 94.6 fL High 80-94 [facility] Comment on above: Performed By: #### L 500.4050, L100.0100 #### [facility] [address] [place], [address] Monocytes/100 WBC (Bld) 14.6 % High 0-10 [facility] Comment on above: Performed By: #### L 500.4050, L100.0100 #### [facility] [address] [place], [address] Neutrophils/100 WBC (Bld) 60.1 % Normal 47-70 [facility] Comment on above: Performed By: #### L 500.4050, L100.0100 #### [facility] [address] [place], [address] Nucleated RBC (Bld) [#/Vol] 0 10*3/uL Normal 0-5 [facility] Comment on above: Performed By: #### L 500.4050, L100.0100 #### [facility] [address] [place], [address] Platelet mean volume (Bld) [Entitic vol] 10.0 fL Normal 6.2-12.0 [facility] Comment on above: Performed By: #### L 500.4050, L100.0100 #### [facility] [address] [place], [address] Platelets (Bld) [#/Vol] 263 10*3/uL Normal 150-450 [facility] Comment on above: Performed By: #### L 500.4050, L100.0100 #### [facility] [address] [place], [address] RBC (Bld) [#/Vol] 4.67 10*6/uL Normal 4.6-6.2 [facility] Comment on above: Performed By: #### L 500.4050, L100.0100 #### [facility] [address] [place], [address] RDW SD 46.6 fl High 35.1-43.9 [facility] Comment on above: Performed By: #### L 500.4050, L100.0100 #### [facility] [address] [place], [address] WBC (Bld) [#/Vol] 8.6 10*3/uL Normal 4.4-11.0 [facility] Comment on above: Performed By: #### L 500.4050, L100.0100 #### [facility] [address] [place], [address] Comprehensive Metabolic Prof scon 07-15-2024 Albumin [Mass/Vol] 3.7 g/dL Normal 3.2-5.0 [facility] Comment on above: Performed By: #### L 500.4050, L100.0100 #### [facility] [address] [place], [address] Albumin/Globulin [Mass ratio] 1.0 {ratio} Normal 0.9-2.4 [facility] Comment on above: Performed By: #### L 500.4050, L100.0100 #### [facility] [address] [place], [address] ALK P 99 U/L Normal 45-117 [facility] Comment on above: Performed By: #### L 500.4050, L100.0100 #### [facility] [address] [place], [address] ALT [Catalytic activity/Vol] 39 U/L Normal 16-61 [facility] Comment on above: Performed By: #### L 500.4050, L100.0100 #### [facility] [address] [place], [address] AST [Catalytic activity/Vol] 23 U/L Normal 15-37 [facility] Comment on above: Performed By: #### L 500.4050, L100.0100 #### [facility] [address] [place], [address] Bilirubin [Mass/Vol] 0.20 mg/dL Normal 0.20-1.00 [facility] Comment on above: Result Comment: For patients on eltrombopag therapy, use of Dimension [place] TBIL is not recommended. Performed By: #### L 500.4050, L100.0100 #### [facility] [address] [place], [address] BUN/CRE 19.3 RATIO Normal 10-20 [facility] Comment on above: Performed By: #### L 500.4050, L100.0100 #### [facility] [address] [place], [address] CA,Total 9.1 mg/dL Normal 8.5-10.1 [facility] Comment on above: Performed By: #### L 500.4050, L100.0100 #### [facility] [address] [place], [address] Chloride [Moles/Vol] 110 mmol/L High 98-107 [facility] Comment on above: Performed By: #### L 500.4050, L100.0100 #### [facility] [address] [place], [address] CO2 [Moles/Vol] 24.0 mmol/L Normal 21.0-32.0 [facility] Comment on above: Performed By: #### L 500.4050, L100.0100 #### [facility] [address] [place], [address] Creatinine [Mass/Vol] 0.88 mg/dL Normal 0.70-1.30 [facility] Comment on above: Result Comment: The validity of the calculated GFR GFRAA in patients over 70 years has not been determined. Clinical correlation is essential. Performed By: #### L 500.4050, L100.0100 #### [facility] [address] [place], [address] EST GFR - AA 115 mL/min Normal >60 [facility] Comment on above: Result Comment: Afri can Nauruan GFR Calc Performed By: #### L 500.4050, L100.0100 #### [facility] [address] [place], [address] GAP 7 Normal 5-15 [facility] Comment on above: Performed By: #### L 500.4050, L100.0100 #### [facility] [address] [place], [address] GFR/1.73 sq M.predicted among non-blacks MDRD (S/P/Bld) [Vol rate/Area] 95 mL/min/{1.73_m2} Normal >60 [facility] Comment on above: Result Comment: Non- GFR Calc Performed By: #### L 500.4050, L100.0100 #### [facility] [address] [place], [address] Globulin (S) [Mass/Vol] 3.6 g/dL Normal 2.2-4.2 [facility] Comment on above: Performed By: #### L 500.4050, L100.0100 #### [facility] [address] [place], [address] Glucose [Mass/Vol] 88 mg/dL Normal 74-106 [facility] Comment on above: Performed By: #### L 500.4050, L100.0100 #### [facility] [address] [place], [address] Potassium [Moles/Vol] 3.7 mmol/L Normal 3.5-5.1 [facility] Comment on above: Performed By: #### L 500.4050, L100.0100 #### [facility] [address] [place], [address] Sodium [Moles/Vol] 140 mmol/L Normal 136-145 [facility] Comment on above: Performed By: #### L 500.4050, L100.0100 #### [facility] [address] [place], [address] T PROT 7.3 g/dL Normal 6.4-8.2 [facility] Comment on above: Performed By: #### L 500.4050, L100.0100 #### [facility] [address] [place], [address] Urea nitrogen [Mass/Vol] 17 mg/dL Normal 7-18 [facility] Comment on above: Performed By: #### L 500.4050, L100.0100 #### [facility] [address] [place], [address] [facility] 06-27-2024 [facility] Telephone (INTMWS) ----- HOLLIS MASCORRO ([id number]) 1965 M Date Time Provider Department 06/27/24 [...] healthy diet and taking probiotic. Uses [facility]. Please advise patient. Thank you. Kaden Diamond MD 06/29/2024 9:03 AM Signed Update on patient's condition/symptoms please. Rajiv Alvarez RN 06/29/2024 12:58 PM Signed Phoned patient and asked for update. Patient reports he is eating 4 nicaraguan yogarts a day now, instead of taking [...] for Visit: Patient Update [1234] Patient Question [3857] Prescriptions as of 06/30/2024 - rOPINIRole (REQUIP) [...] Encounter Status:Closed by Rajiv ALVAREZ on 06/30/24 [facility] CNOVon 06-24-2024 CNOV Office Visit (INTMWS ) ----- HOLLIS MASCORRO ([id number]) 1965 M Date Time Provider Department 06/24/24 11:00 AM KADEN DIAMOND INTMWS During your visit today, we recorded the following information about you: Temperature Pulse Respiration Blood pressure 98.1 degrees 70/minute 12/minute 130/72 Weight Height 87.9 kg 1.753 m Kaden Diamond MD 06/24/2024 1:13 PM Signed This note was created using [employer]. Subjective Patient presents with: Yearly Exam Immunizations: [...] Levi Reyes, [facility]. Dr. Karl Nolasco, [facility] (hands) [facility], allergy. Review [...] collateral ligament of left index finger 12/09/2023 [facility] PAST SURGICAL HISTORY Procedure Laterality Date ANKLE LEFT OP SURGERY Left 07/2015 COLONOSCOPY FLX DX W/COLLJ SPEC WHEN PFRMD 04/23/2020 Colonoscopy TOTAL HIP REPLACEMENT Left 11/28/2021 FAMILY HISTORY Problem Relation Age of Onset Cancer Mother 67 lung cancer Hypertension Mother Arthritis Mother psoriatic GI Father diverticulitis Heart Father [place] @ 81 years COPD Father driscoll's lung [...] TRIVALENT (AFLURI (more content not included)... Normal [facility] 06-07-2024 [facility] (INTMWS) ----- HOLLIS MASCORRO ([id number]) 1965 M Date Time Provider Department 06/07/24 [...] well again. Please review and advise, LIZ Hidalgo Terri, CHRISTOPHER.COMPOSITION MIXER 06/07/2024 3:20 PM Signed Appears this is [...] Status:Closed by DENA JAMESON on 06/07/24 Normal [facility] CT ABD/PEL W IVCONon 024 CT ABD/PEL W IVCON * * *Final Report* * * DATE OF EXAM: May 27 2024 11:24AM [facility] 0530 - CT ABD/PEL W IVCON [...] stool burden. Fatty infiltration of the liver. Clothes Ironer: JAZMÍN Transcribe Date/Time: May 27 2024 12:45P Dictated by : DEDRICK YEAGER MD This examination was interpreted and the report reviewed and electronically signed by: DEDRICK YEAGER MD on May 27 2024 12:52PM EST [id number] Normal [facility] CT Abdomen and Pelvis W cont rast Denisha 05-27-2024 IMPRESSION: Normal appendix. Sigmoid colon diverticulosis. Mild fat stranding is seen involving the sigmoid colon and mild colitis is not excluded. No evidence for bowel perforation, abscess, or bowel obstruction. Moderate stool burden. Fatty infiltration of the liver. Clothes Ironer: JAZMÍN Transcribe Date/Time: May 27 2024 12:45P Dictated by : DEDRICK YEAGER MD This examination was interpreted and the report reviewed and electronically signed by: DEDRICK YEAGER MD on May 27 2024 12:52PM EST DIVISION OF RADIOLOGY * * *Final Report* * * DATE OF EXAM: May 27 2024 11:24AM [facility] 0530 - CT ABD/PEL W IVCON [...] lobe. DIVISION OF RADIOLOGY Provider, Fabby Flaherty [facility] - 05/27/2024 * * *Final Report* * * DATE OF EXAM: May 27 2024 11:24AM [facility] 0530 - CT ABD/PEL W IVCON [...] stool burden. Fatty infiltration of the liver. Clothes Ironer: PSCB Transcribe Date/Time: May 27 2024 12:45P Dictated by : DEDRICK YEAGER MD This examination was interpreted and the report reviewed and electronically signed by: DEDRICK YEAGER MD on May 27 2024 12:52PM EST [facility] Radiology Study observation (narrative) [facility] CT Abdomen and Pelvis W cont rast IVOrdered By: [facility]cf Provider on 05-27-2024 [facility] 05-21-2024 [facility] Tele[facility] (JOSHMWS) ----- HOLLIS MASCORRO ([id number]) 1965 M Date Time Provider Department 05/21/24 [...] Status:Closed by EMELINA BLACK on 05/21/24 Normal [facility] C diff Tox gens Stl Ql ERIC+p robeon 05-19-2024 C. difficile toxin genes ERIC+probe Ql (Stl) Positive Abnormal Negative for C. difficile toxin by PCR [facility] Comment on above: Order Comment: Marcos rolon Type: BLOOD SPECIMEN Ordering Facility: [facility] Address: [address] [place] [address] Result Comment: A po sitive PCR result [...] specimen submission. Performed By: #### 4 537-7, 31811-1 #### [facility] CLIA [id number] [address] [place] [address] [place] C. DIFFICILE TOXIN BY EIAon 05-19-2024 C. difficile toxin A+B IA Ql (Stl) Detected Abnormal Negative for C. difficile toxin [facility] Comment on above: Order Comment: Marcos rolon Type: BLOOD SPECIMEN Ordering Facility: [facility] Address: [address] [place] [address] Performed By: #### 4 537-7, 80116-9 #### [facility] CLIA [id number] [address] [place] [address] [place] CBC panel Auto (Bld)on 05-17 Erythrocyte distribution width (RBC) [Ratio] 12.9 % Normal 11.5-15.0 [facility] Comment on above: Order Comment: Marcos rolon Type: BLOOD SPECIMEN Ordering Facility: [facility] Address: [address] [place] [address] Performed By: #### 4 537-7, 15887-0 #### [facility] CLIA [id number] [address] [place] [address] [place] Hematocrit (Bld) [Volume fraction] 44.8 % Normal 39.0-51.0 [facility] Comment on above: Order Comment: Speci men Type: BLOOD SPECIMEN Ordering Facility: [facility] Address: [address] [place] [address] Performed By: #### 4 537-7, 09923-1 #### [facility] CLIA [id number] [address] [place] [address] [place] Hemoglobin (Bld) [Mass/Vol] 15.3 g/dL Normal 13.0-17.0 [facility] Comment on above: Order Comment: Speci men Type: BLOOD SPECIMEN Ordering Facility: [facility] Address: [address] [place] [address] Performed By: #### 4 537-7, 33909-1 #### [facility] CLIA [id number] [address] [place] [address] [place] MCH (RBC) [Entitic mass] 32.1 pg Normal 26.0-34.0 [facility] Comment on above: Order Comment: Speci men Type: BLOOD SPECIMEN Ordering Facility: [facility] Address: [address] [place] [address] Performed By: #### 4 537-7, 49903-0 #### [facility] CLIA [id number] [address] [place] [address] [place] MCHC (RBC) [Mass/Vol] 34.2 g/dL Normal 30.5-36.0 [facility] Comment on above: Order Comment: Speci men Type: BLOOD SPECIMEN Ordering Facility: [facility] Address: [address] [place] [address] Performed By: #### 4 537-7, 12330-3 #### [facility] CLIA [id number] [address] [place] [address] [place] MCV (RBC) [Entitic vol] 94.1 fL Normal 80.0-100.0 [facility] Comment on above: Order Comment: Speci men Type: BLOOD SPECIMEN Ordering Facility: [facility] Address: [address] [place] [address] Performed By: #### 4 537-7, 47873-3 #### [facility] CLIA [id number] [address] [place] [address] [place] Nucleated RBC (Bld) [#/Vol] 10*3/uL Normal <0.01 [facility] Comment on above: Order Comment: Speci men Type: BLOOD SPECIMEN Ordering Facility: [facility] Address: [address] [place] [address] Performed By: #### 4 537-7, 94183-4 #### [facility] CLIA [id number] [address] [place] [address] [place] Platelet mean volume (Bld) [Entitic vol] 10.1 fL Normal 9.0-12.7 [facility] Comment on above: Order Comment: Speci men Type: BLOOD SPECIMEN Ordering Facility: [facility] Address: [address] [place] [address] Performed By: #### 4 537-7, 57540-1 #### [facility] CLIA [id number] [address] [place] [address] [place] Platelets (Bld) [#/Vol] 268 10*3/uL Normal 150-400 [facility] Comment on above: Order Comment: Speci men Type: BLOOD SPECIMEN Ordering Facility: [facility] Address: [address] [place] [address] Performed By: #### 4 537-7, 93572-4 #### [facility] CLIA [id number] [address] [place] [address] [place] RBC (Bld) [#/Vol] 4.76 10*6/uL Normal 4.20-6.00 [facility] Comment on above: Order Comment: Speci men Type: BLOOD SPECIMEN Ordering Facility: [facility] Address: [address] [place] [address] Performed By: #### 4 537-7, 30521-2 #### [facility] CLIA [id number] [address] [place] [address] [place] WBC (Bld) [#/Vol] 14.68 10*3/uL High 3.70-11.00 [facility] Comment on above: Order Comment: Speci men Type: BLOOD SPECIMEN Ordering Facility: [facility] Address: [address] [place] [address] Performed By: #### 4 537-7, 08309-2 #### [facility] CLIA [id number] [address] [place] [address] [place] CRP SerPl-mCncon 05-17-2024 CRP [Mass/Vol] 2.0 mg/dL High <0.9 [facility] Comment on above: Order Comment: Speci men Type: BLOOD SPECIMEN Ordering Facility: [facility] Address: [address] [place] [address] Performed By: #### 4 537-7, 01218-4 #### [facility] CLIA [id number] [address] [place] [address] [place] Comprehensive metabolic 2000 panelon 05-17-2024 Albumin [Mass/Vol] 4.1 g/dL Normal 3.9-4.9 [facility] Comment on above: Order Comment: Speci men Type: BLOOD SPECIMEN Ordering Facility: [facility] Address: [address] [place] [address] Performed By: #### 4 537-7, 18979-0 #### [facility] CLIA [id number] [address] [place] [address] [place] ALP [Catalytic activity/Vol] 87 U/L Normal 38-113 [facility] Comment on above: Order Comment: Speci men Type: BLOOD SPECIMEN Ordering Facility: [facility] Address: [address] [place] [address] Performed By: #### 4 537-7, 51467-1 #### [facility] CLIA [id number] [address] [place] [address] [place] ALT [Catalytic activity/Vol] 15 U/L Normal 10-54 [facility] Comment on above: Order Comment: Speci men Type: BLOOD SPECIMEN Ordering Facility: [facility] Address: [address] [place] [address] Performed By: #### 4 537-7, 74856-2 #### [facility] CLIA [id number] [address] [place] [address] [place] Anion gap [Moles/Vol] 10 mmol/L Normal 8-15 [facility] Comment on above: Order Comment: Speci men Type: BLOOD SPECIMEN Ordering Facility: [facility] Address: [address] [place] [address] Performed By: #### 4 537-7, 82959-5 #### [facility] CLIA [id number] [address] [place] [address] [place] AST [Catalytic activity/Vol] 16 U/L Normal 14-40 [facility] Comment on above: Order Comment: Speci men Type: BLOOD SPECIMEN Ordering Facility: [facility] Address: [address] [place] [address] Performed By: #### 4 537-7, 61797-2 #### [facility] CLIA [id number] [address] [place] [address] [place] Bilirubin [Mass/Vol] 0.5 mg/dL Normal 0.2-1.3 [facility] Comment on above: Order Comment: Speci men Type: BLOOD SPECIMEN Ordering Facility: [facility] Address: [address] [place] [address] Performed By: #### 4 537-7, 36733-7 #### [facility] CLIA [id number] [address] [place] [address] [place] Calcium [Mass/Vol] 9.4 mg/dL Normal 8.5-10.2 [facility] Comment on above: Order Comment: Speci men Type: BLOOD SPECIMEN Ordering Facility: [facility] Address: [address] [place] [address] Performed By: #### 4 537-7, 79925-4 #### [facility] CLIA [id number] [address] [place] [address] [place] Chloride [Moles/Vol] 104 mmol/L Normal 98-107 [facility] Comment on above: Order Comment: Speci men Type: BLOOD SPECIMEN Ordering Facility: [facility] Address: [address] [place] [address] Performed By: #### 4 537-7, 11289-9 #### [facility] CLIA [id number] [address] [place] [address] [place] CO2 [Moles/Vol] 26 mmol/L Normal 22-30 [facility] Comment on above: Order Comment: Speci men Type: BLOOD SPECIMEN Ordering Facility: [facility] Address: [address] [place] [address] Performed By: #### 4 537-7, 75272-7 #### [facility] CLIA [id number] [address] [place] [address] [place] Creatinine [Mass/Vol] 0.99 mg/dL Normal 0.73-1.22 [facility] Comment on above: Order Comment: Speci men Type: BLOOD SPECIMEN Ordering Facility: [facility] Address: [address] [place] [address] Performed By: #### 4 537-7, 02788-9 #### [facility] CLIA [id number] [address] [place] [address] [place] Creatinine and Glomerular filtration rate.predicted panel (S/P/Bld) 89 mL/min/1.73m??? Normal >=60 [facility] Comment on above: Order Comment: Marcos rolon Type: BLOOD SPECIMEN Ordering Facility: [facility] Address: [address] [place] [address] Result Comment: Mary mated Glomerular Filtration Rate [...] actual GFR. Performed By: #### 4 537-7, 72471-8 #### [facility] CLIA [id number] [address] [place] [address] [place] Glucose [Mass/Vol] 86 mg/dL Normal 74-99 [facility] Comment on above: Order Comment: Marcos rolon Type: BLOOD SPECIMEN Ordering Facility: [facility] Address: [address] [place] [address] Result Comment: The [place] Diabetes Association (ADA) provides guidance for cutoff [...] Standards of Medical Care in Diabetes 2016, [place] [employer] Association. Diabetes Care. 2016.39(Suppl 1). Performed By: #### 4 537-7, 25936-5 #### [facility] CLIA [id number] [address] [place], [place] [id number] [place] Potassium [Moles/Vol] 4.4 mmol/L Normal 3.7-5.1 [facility] Comment on above: Order Comment: Speci men Type: BLOOD SPECIMEN Ordering Facility: [facility] Address: [address] [place] [address] Performed By: #### 4 537-7, 35463-1 #### [facility] CLIA [id number] [address] [place] [address] [place] Protein [Mass/Vol] 7.4 g/dL Normal 6.3-8.0 [facility] Comment on above: Order Comment: Speci men Type: BLOOD SPECIMEN Ordering Facility: [facility] Address: [address] [place] [address] Performed By: #### 4 537-7, 78915-9 #### [facility] CLIA [id number] [address] [place] [address] [place] Sodium [Moles/Vol] 140 mmol/L Normal 136-144 [facility] Comment on above: Order Comment: Speci men Type: BLOOD SPECIMEN Ordering Facility: [facility] Address: [address] [place] [address] Performed By: #### 4 537-7, 50581-6 #### [facility] CLIA [id number] [address] [place] [address] [place] Urea nitrogen [Mass/Vol] 11 mg/dL Normal 9-24 [facility] Comment on above: Order Comment: Speci men Type: BLOOD SPECIMEN Ordering Facility: [facility] Address: [address] [place] [address] Performed By: #### 4 537-7, 69104-2 #### [facility] CLIA [id number] [address] [place] [address] [place] ESR Westergren method (Bld) [Velocity]on 05-17-2024 ESR (Bld) [Velocity] 13 mm/h Normal 0-15 [facility] Comment on above: Order Comment: Speci men Type: BLOOD SPECIMEN Ordering Facility: [facility] Address: [address] [place] [address] Performed By: #### 4 537-7, 32714-9 #### [facility] CLIA [id number] [address] [place] [address] [place] Lipid 1996 panelon 4 Cholesterol [Mass/Vol] 114 mg/dL Normal <200 [facility] Comment on above: Order Comment: Speci men Type: BLOOD SPECIMEN Ordering Facility: [facility] Address: [address] [place] [address] Result Comment: <200 mg/dL, Desirable 200-239 mg/dL, Borderline high >239 mg/dL, High Performed By: #### 4 537-7, 12087-2 #### [facility] CLIA [id number] [address] [place] [address] [place] Cholesterol in HDL [Mass/Vol] 41 mg/dL Normal >39 [facility] Comment on above: Order Comment: Speci men Type: BLOOD SPECIMEN Ordering Facility: [facility] Address: [address] [place] [address] Result Comment: 40-5 9 mg/dL, Acceptable >59 mg/dL, High: Negative risk factor for coronary heart disease <40 mg/dL, Low: Positive risk factor for coronary heart disease Performed By: #### 4 537-7, 22724-4 #### [facility] CLIA [id number] [address] [place] [address] [place] Cholesterol in LDL [Mass/Vol] 56 mg/dL Normal <100 [facility] Comment on above: Order Comment: Speci men Type: BLOOD SPECIMEN Ordering Facility: [facility] Address: [address], [place] [address] Result Comment: <100 mg/dL, Optimal 100-129 mg/dL, Near optimal/above optimal 130-159 mg/dL, Borderline high 160-189 mg/dL, High >189 mg/dL, Very high Secondary prevention optimal LDL Cholesterol levels are recommended to be < 70 mg/dL Performed By: #### 4 537-7, 04908-5 #### [facility] CLIA [id number] [address] [place] [address] [place] Cholesterol in LDL/Cholesterol in HDL [Mass ratio] 1.37 {ratio} Normal <2.54 [facility] Comment on above: Order Comment: Marcos rolon Type: BLOOD SPECIMEN Ordering Facility: [facility] Address: [address] [place] [address] Result Comment: Refe richiece: 1. National Cholesterol Education Program ATP III Guideline At-A-Glance Quick Desk Reference: National Heart, Lung, and Blood [place]. National Institutes of Health. 2001: NIH Publication No. 01-3305. 2. An International Atherosclerosis Society position paper: global recommendations for the management of dyslipidemia: executive summary, Atherosclerosis. 2014: 232(2):410-413. Performed By: #### 4 537-7, 96293-9 #### [facility] CLIA [id number] [address] [place] [address] [place] Cholesterol in VLDL [Mass/Vol] 17 mg/dL Normal <30 [facility] Comment on above: Order Comment: Macros rolon Type: BLOOD SPECIMEN Ordering Facility: [facility] Address: [address] [place] [address] Performed By: #### 4 537-7, 08746-8 #### [facility] CLIA [id number] [address] [place] [address] [place] Cholesterol non HDL [Mass/Vol] 73 mg/dL Normal <130 [facility] Comment on above: Order Comment: Marcos rolon Type: BLOOD SPECIMEN Ordering Facility: [facility] Address: [address] [place] [address] Result Comment: <130 mg/dL, Optimal 130-159 mg/dL, Near optimal/above optimal 160-189 mg/dL, Borderline high 190-219 mg/dL, High >219 mg/dL, Very high Secondary prevention optimal non HDL Cholesterol levels are recommended to be <100 mg/dL Performed By: #### 4 537-7, 13334-8 #### [facility] CLIA [id number] [address] [place] [address] [place] Cholesterol.total/Choles terol in HDL [Mass ratio] 2.78 {ratio} Normal <5.10 [facility] Comment on above: Order Comment: Speci men Type: BLOOD SPECIMEN Ordering Facility: [facility] Address: [address] [place] [address] Performed By: #### 4 537-7, 16467-5 #### [facility] CLIA [id number] [address] [place] [address] [place] FASTING TIME 12 hrs Normal [facility] Comment on above: Order Comment: Speci men Type: BLOOD SPECIMEN Ordering Facility: [facility] Address: [address] [place] [address] Performed By: #### 4 537-7, 33113-4 #### [facility] CLIA [id number] [address] [place] [address] [place] Triglyceride [Mass/Vol] 86 mg/dL Normal <150 [facility] Comment on above: Order Comment: Speci men Type: BLOOD SPECIMEN Ordering Facility: [facility] Address: [address] [place] [address] Result Comment: <150 mg/dL, Normal 150-199 mg/dL, Borderline high 200-499 mg/dL, High >499 mg/dL, Very high Performed By: #### 4 537-7, 55539-0 #### [facility] CLIA [id number] [address] [place], [place] [id number] [place] PSA/PROSTATE SPECIFIC ANTIGE N SCREENINGon 05-17-2024 Prostate specific Ag [Mass/Vol] 1.35 ng/mL Normal <2.60 [facility] Comment on above: Order Comment: Speci men Type: BLOOD SPECIMEN Ordering Facility: [facility] Address: [address] [place] [address] Result Comment: Jessica morrow PSA test methodology used is the Electrochemiluminescence Immunoassay by [employer]. Total PSA values by differing methodologies cannot be interchanged. Performed By: #### P SAS1 #### [facility] CLIA [id number] [address] [place] [address] [place] CNOVon 05-16-2024 CNOV Office Visit (INTMWS ) ----- HOLLIS MASCORRO ([id number]) 1965 M Date Time Provider Department 05/16/24 6:20 PM KADEN DIAMOND INTMWS During your visit today, we recorded the following information about you: Temperature Pulse Respiration Blood pressure 98 degrees 68/minute 16/minute 98/68 Weight 84 kg Kaden Diamond MD 05/17/2024 7:28 AM Signed This note was created using [employer]. Subjective Patient presents with: Abdominal Pain Hollis [...] Primary Visit (more content not included)... [facility], UR[facility] (POC)on 2023 BILIRUBIN UA (POCT) Negative Negative [facility] CLARITY UA (POCT) Clear [facility] COLOR UA (POCT) Yellow [facility] GLUCOSE UA (POCT) Negative Negative mg/dL [facility] Hemoglobin Ql (U) Negative Negative [facility] KETONE UA (POCT) Negative Negative mg/dL [facility] LEUKOCYTES UA (POCT) Negative Negative [facility] NITRITE UA (POCT) Negative Negative [facility] PH UA (POCT) 5.5 4.5 - 8.0 [facility] Protein Ql (U) Negative Negative mg/dL [facility] SPECIFIC GRAVITY UA (POCT) 1.020 1.005 - 1.030 [facility] UROBILINOGEN UA (POCT) 0.2 Lisa l E.U./dL [facility] Location:[facility], [address] [place] [address], [place], [place], [id number] [place] [address] POINT OF CARE [facility] CNOVon 04-12-2024 CNOV Office Visit (INTMWS ) ----- HOLLIS MASCORRO ([id number]) 1965 M Date Time Provider Department 04/12/24 2:40 PM KADEN DIAMOND INTMWS During your visit today, we recorded the following information about you: Temperature Pulse Respiration Blood pressure 98.6 degrees 68/minute 16/minute 104/72 Weight 87.5 kg Kaden Diamond MD 04/12/2024 3:25 PM Signed This note was created using [employer]. Subjective Hollis Mascorro is a 58 year [...] [Z13.220] Order(s):COMPLETE BLOOD COUNT [SQCBC] Order #: [id number] FUTURE BASIC METABOLIC PANEL [SQBMP] Order #: [id number] FUTURE LIPID PANEL BASIC [SQLIPB] Order #: [id number] FUTURE Prescriptions as of 04/12/2024 - budesonide (PULMICORT) 0.5 mg/2 mL nebulizer solution Use 0.5 mg via nebulizer once daily. - rOPINIRole (REQUIP) 0.25 mg tablet Take 0.5 mg by mouth daily at bedtime. Take 1 to 2 tablets at bedtime. - Dextromethorphan-guaiFENe sin (MUCINEX DM) 60-1,200 mg tab ER 12 hr Take by mouth. - (more content not included)... Normal [facility] Absolute lymphocyte countOrd ered By: Catherine Preciado on 11-06-2023 Lymphocytes Auto (Unsp spec) [#/Vol] 1.26 10*3/uL 0.83-4.51 [facility] Automated lymphocyte count a s percentage of total leukocytesOrdered By: Catherine Preciado on 11-06-2023 Lymphocytes/100 WBC Auto (Unsp spec) 15.2 % 19-41 [facility] Basophil percentageOrdered B y: Catherine Preciado on 11-06-2023 Basophils/100 WBC (Bld) 0.8 % 0-1 [facility] Bilirubin [Mass/Vol] 0.60 mg/dL 0.20-1.00 [facility] Comment on above: For patients on eltr ombopag therapy, use of Dimension [place] TBIL is not recommended. Chloride [Moles/Vol] 107 mmol/L 98-107 [facility] Eosinophils/100 WBC (Bld) 2.2 % 0-5 [facility] Glucose [Mass/Vol] 81 mg/dL 74-106 [facility] Hemoglobin (Bld) [Mass/Vol] 15.7 g/dL 13.0-16.5 [facility] Monocytes/100 WBC (Bld) 12.9 % 0-10 [facility] Neutrophils (Bld) [#/Vol] 5.7 10*3/uL 2.0-7.7 [facility] Neutrophils/100 WBC (Bld) 68.3 % 47-70 [facility] Potassium [Moles/Vol] 3.9 mmol/L 3.5-5.1 [facility] Protein [Mass/Vol] 7.6 g/dL 6.4-8.2 [facility] Sodium [Moles/Vol] 138 mmol/L 136-145 [facility] WBC (Bld) [#/Vol] 8.3 10*3/uL 4.4-11.0 [facility] Determination of erythrocyte mean corpuscular volume (MCV)Ordered By: Catherine Preciado on 11-06-2023 MCV (RBC) [Entitic vol] 96.7 fL 80-94 [facility] Erythrocyte distribution wid th ratioOrdered By: Catherine Preciado on 11-06-2023 Erythrocyte distribution width (RBC) [Ratio] 13.1 % 11.6-14.6 [facility] Erythrocyte distribution wid th standard deviationOrdered By: Catherine Preciado on 11-06-2023 Erythrocyte distribution width (RBC) [Entitic vol] 46.4 fL 35.1-43.9 [facility] Hematocrit Auto (Bld) [Volum e fraction]Ordered By: Catherine Preciado on 11-06-2023 Hematocrit (Bld) [Volume fraction] 47.1 % 40-54 [facility] Immature granulocytes/100 WB C Auto (Bld)Ordered By: Catherinecarlos Preciado on 11-06-2023 Immature granulocytes/100 WBC (Bld) 0.600 % 0.0-0.9 [facility] Comment on above: IG% - Immature Granu locytes (promyelocytes, myelocytes and metamyelocytes) > 1% indicates that a LEFT SHIFT is Present. Laboratory - Chemistry and C hemistry - challengeOrdered By: Catherine Preciado on 11-06-2023 Albumin/Globulin [Mass ratio] 0.9 {ratio} 0.9-2.4 [facility] ALP [Catalytic activity/Vol] 107 U/L 45-117 [facility] ALT [Catalytic activity/Vol] 28 U/L 16-61 [facility] CO2 [Moles/Vol] 29.0 mmol/L 21.0-32.0 [facility] Globulin (S) [Mass/Vol] 3.9 g/dL 2.2-4.2 [facility] Urea nitrogen/Creatinine [Mass ratio] 15.6 mg/mg 10-20 [facility] Laboratory - Hematology and Cell countsOrdered By: Catherine Preciado on 11-06-2023 MCH (RBC) [Entitic mass] 32.2 pg 27.0-32.0 [facility] MCHC (RBC) [Mass/Vol] 33.3 g/dL 32-36 [facility] Nucleated RBC/100 WBC (Bld) [Ratio] 0 % 0-5 [facility] Platelet mean volume (Bld) [Entitic vol] 10.8 fL 6.2-12.0 [facility] Platelets (Bld) [#/Vol] 279 10*3/uL 150-450 [facility] No Panel InformationOrdered By: Catherine Preciado on 11-06-2023 Estimated GFR (MDRD) Amer 104 mL/min >60 [facility] Comment on above: GFR Calc Estimated GFR (MDRD) Non-Af Amer 86 mL/min >60 [facility] Comment on above: Non- GFR Calc RBC Auto (Bld) [#/Vol]Ordere d By: Catherine Preciado on 11-06-2023 RBC (Bld) [#/Vol] 4.87 10*6/uL 4.6-6.2 [facility] Serum or plasma calcium britni urement (mass/volume)Ordered By: Catherine Preciado on 11-06-2023 Calcium [Mass/Vol] 9.2 mg/dL 8.5-10.1 [facility] Serum or plasma creatinine m easurement (mass/volume)Ordered By: Catherine Preciado on 11-06-2023 Creatinine [Mass/Vol] 0.96 mg/dL 0.70-1.30 [facility] Comment on above: The validity of the calculated GFR & GFRAA in patients over 70 years has not been determined. Clinical correlation is essential. Serum or plasma urea nitroge n measurement (mass/volume)Ordered By: Catherine Preciado on 11-06-2023 Urea nitrogen [Mass/Vol] 15 mg/dL 7-18 [facility] Thin prep Papanicolaou smear with manual screeningOrdered By: Catherine Preciado on 11-06-2023 Thin prep Papanicolaou smear with manual screening 3.7 g/dL 3.2-5.0 [facility] Thin prep Papanicolaou smear with manual screening 24 U/L 15-37 [facility] Thin prep Papanicolaou smear with manual screening 2 5-15 [facility] Absolute lymphocyte countOrd ered By: Catherine Preciado on 08-07-2023 Lymphocytes Auto (Unsp spec) [#/Vol] 1.62 10*3/uL 0.83-4.51 [facility] Basophil percentageOrdered B y: Catherine Preciado on 08-07-2023 Basophils/100 WBC (Bld) 0.8 % 0-1 [facility] Bilirubin [Mass/Vol] 0.50 mg/dL 0.20-1.00 [facility] Comment on above: For patients on eltr ombopag therapy, use of Dimension [place] TBIL is not recommended. Chloride [Moles/Vol] 109 mmol/L 98-107 [facility] Eosinophils/100 WBC (Bld) 2.8 % 0-5 [facility] Glucose [Mass/Vol] 105 mg/dL 74-106 [facility] Comment on above: Fasting Glucose resu lt from 100 to 125 mg/dL suggests IMPAIRED HOMEOSTASIS per A.D.A. criteria. Neutrophils (Bld) [#/Vol] 5.0 10*3/uL 2.0-7.7 [facility] Neutrophils/100 WBC (Bld) 63.5 % 47-70 [facility] Potassium [Moles/Vol] 3.7 mmol/L 3.5-5.1 [facility] Protein [Mass/Vol] 7.1 g/dL 6.4-8.2 [facility] Sodium [Moles/Vol] 141 mmol/L 136-145 [facility] WBC (Bld) [#/Vol] 7.9 10*3/uL 4.4-11.0 [facility] Blood erythrocytes count (nu mber/volume)Ordered By: Catherine Preciado on 08-07-2023 RBC (Bld) [#/Vol] 4.76 10*6/uL 4.6-6.2 [facility] Blood hemoglobin measurement (mass/volume)Ordered By: Catherine Preciado on 08-07-2023 Hemoglobin (Bld) [Mass/Vol] 15.3 g/dL 13.0-16.5 [facility] Blood lymphocytes/100 leukoc ytesOrdered By: Catherine Preciado on 08-07-2023 Lymphocytes/100 WBC (Bld) 20.5 % 19-41 [facility] Blood monocytes/100 leukocyt esOrdered By: Catherine Preciado on 08-07-2023 Monocytes/100 WBC (Bld) 11.8 % 0-10 [facility] Blood platelet mean volumeOr dered By: Catherine Preciado on 08-07-2023 Platelet mean volume (Bld) [Entitic vol] 10.5 fL 6.2-12.0 [facility] Determination of erythrocyte mean corpuscular volume (MCV)Ordered By: Catherine Preciado on 08-07-2023 MCV (RBC) [Entitic vol] 95.6 fL 80-94 [facility] Hematocrit Auto (Bld) [Volum e fraction]Ordered By: Catherinecarlos Preciado on 08-07-2023 Hematocrit (Bld) [Volume fraction] 45.5 % 40-54 [facility] Laboratory - Chemistry and C hemistry - challengeOrdered By: [facility] Ozzy on 08-07-2023 ALP [Catalytic activity/Vol] 79 U/L 45-117 [facility] ALT [Catalytic activity/Vol] 33 U/L 16-61 [facility] CO2 [Moles/Vol] 25.0 mmol/L 21.0-32.0 [facility] Globulin (S) [Mass/Vol] 3.5 g/dL 2.2-4.2 [facility] Urea nitrogen/Creatinine [Mass ratio] 17.0 mg/mg 10-20 [facility] Laboratory - Hematology and Cell countsOrdered By: [facility] on 08-07-2023 Erythrocyte distribution width (RBC) [Entitic vol] 44.4 fL 35.1-43.9 [facility] Erythrocyte distribution width (RBC) [Ratio] 12.6 % 11.6-14.6 [facility] Immature granulocytes/100 WBC (Bld) 0.600 % 0.0-0.9 [facility] Comment on above: IG% - Immature Granu locytes (promyelocytes, myelocytes and metamyelocytes) > 1% indicates that a LEFT SHIFT is Present. MCH (RBC) [Entitic mass] 32.1 pg 27.0-32.0 [facility] Nucleated RBC/100 WBC (Bld) [Ratio] 0 % 0-5 [facility] MCHC Auto (RBC) [Mass/Vol]Or dered By: Catherinecarlos Preciado on 08-07-2023 MCHC (RBC) [Mass/Vol] 33.6 g/dL 32-36 [facility] No Panel InformationOrdered By: Catherinecarlos Preciado on 08-07-2023 Estimated GFR (MDRD) Amer 100 mL/min >60 [facility] Comment on above: GFR Calc Estimated GFR (MDRD) Non-Af Amer 82 mL/min >60 [facility] Comment on above: Non- GFR Calc Platelets bldOrdered By: Warren Preciado on 08-07-2023 Platelets (Bld) [#/Vol] 243 10*3/uL 150-450 [facility] Serum or plasma albumin britni urement (mass/volume)Ordered By: Catherine Preciado on 08-07-2023 Albumin [Mass/Vol] 3.6 g/dL 3.2-5.0 [facility] Serum or plasma albumin/glob ulin mass ratioOrdered By: Catherine Preciado on 08-07-2023 Albumin/Globulin [Mass ratio] 1.0 {ratio} 0.9-2.4 [facility] Serum or plasma calcium britni urement (mass/volume)Ordered By: Catherine Preciado on 08-07-2023 Calcium [Mass/Vol] 8.6 mg/dL 8.5-10.1 [facility] Serum or plasma creatinine m easurement (mass/volume)Ordered By: Catherine Preciado on 08-07-2023 Creatinine [Mass/Vol] 1.00 mg/dL 0.70-1.30 [facility] Comment on above: The validity of the calculated GFR & GFRAA in patients over 70 years has not been determined. Clinical correlation is essential. Serum or plasma urea nitroge n measurement (mass/volume)Ordered By: Catherine Preciado on 08-07-2023 Urea nitrogen [Mass/Vol] 17 mg/dL 7-18 [facility] Thin prep Papanicolaou smear with manual screeningOrdered By: Catherine Preciado on 08-07-2023 Thin prep Papanicolaou smear with manual screening 23 U/L 15-37 [facility] Thin prep Papanicolaou smear with manual screening 7 5-15 [facility] Absolute lymphocyte countOrd ered By: Catherine Preciado on 05-15-2023 Lymphocytes Auto (Unsp spec) [#/Vol] 1.49 10*3/uL 0.83-4.51 [facility] Basophil percentageOrdered B y: Catherine Preciado on 05-15-2023 Basophils/100 WBC (Bld) 1.1 % 0-1 [facility] Bilirubin [Mass/Vol] 0.50 mg/dL 0.20-1.00 [facility] Comment on above: For patients on eltr ombopag therapy, use of Dimension [place] TBIL is not recommended. Chloride [Moles/Vol] 108 mmol/L 98-107 [facility] Eosinophils/100 WBC (Bld) 3.6 % 0-5 [facility] Glucose [Mass/Vol] 90 mg/dL 74-106 [facility] Neutrophils (Bld) [#/Vol] 5.0 10*3/uL 2.0-7.7 [facility] Neutrophils/100 WBC (Bld) 61.2 % 47-70 [facility] Potassium [Moles/Vol] 3.8 mmol/L 3.5-5.1 [facility] Protein [Mass/Vol] 7.3 g/dL 6.4-8.2 [facility] Sodium [Moles/Vol] 139 mmol/L 136-145 [facility] WBC (Bld) [#/Vol] 8.1 10*3/uL 4.4-11.0 [facility] Blood erythrocytes count (nu mber/volume)Ordered By: Catherine Preciado on 05-15-2023 RBC (Bld) [#/Vol] 4.81 10*6/uL 4.6-6.2 [facility] Blood hemoglobin measurement (mass/volume)Ordered By: Catherine Preciado on 05-15-2023 Hemoglobin (Bld) [Mass/Vol] 15.7 g/dL 13.0-16.5 [facility] Blood lymphocytes/100 leukoc ytesOrdered By: Catherine Preciado on 05-15-2023 Lymphocytes/100 WBC (Bld) 18.3 % 19-41 [facility] Blood monocytes/100 leukocyt esOrdered By: Catherine Preciado on 05-15-2023 Monocytes/100 WBC (Bld) 14.6 % 0-10 [facility] Blood platelet mean volumeOr dered By: Catherine Preciado on 05-15-2023 Platelet mean volume (Bld) [Entitic vol] 10.7 fL 6.2-12.0 [facility] Determination of erythrocyte mean corpuscular volume (MCV)Ordered By: Catherine Preciado on 05-15-2023 MCV (RBC) [Entitic vol] 96.0 fL 80-94 [facility] Hematocrit Auto (Bld) [Volum e fraction]Ordered By: Catherine Preciado on 05-15-2023 Hematocrit (Bld) [Volume fraction] 46.2 % 40-54 [facility] Laboratory - Chemistry and C hemistry - challengeOrdered By: Catherinecarlos Preciado on 05-15-2023 ALP [Catalytic activity/Vol] 102 U/L 45-117 [facility] ALT [Catalytic activity/Vol] 35 U/L 16-61 [facility] CO2 [Moles/Vol] 26.0 mmol/L 21.0-32.0 [facility] Globulin (S) [Mass/Vol] 3.4 g/dL 2.2-4.2 [facility] Urea nitrogen/Creatinine [Mass ratio] 16.0 mg/mg 10-20 [facility] Laboratory - Hematology and Cell countsOrdered By: [facility] Ozzy on 05-15-2023 Erythrocyte distribution width (RBC) [Entitic vol] 47.3 fL 35.1-43.9 [facility] Erythrocyte distribution width (RBC) [Ratio] 13.4 % 11.6-14.6 [facility] [facility] Immature granulocytes/100 WBC (Bld) 1.200 % 0.0-0.9 [facility] Comment on above: IG% - Immature Granu locytes (promyelocytes, myelocytes and metamyelocytes) > 1% indicates that a LEFT SHIFT is Present. MCH (RBC) [Entitic mass] 32.6 pg 27.0-32.0 [facility] Nucleated RBC/100 WBC (Bld) [Ratio] 0 % 0-5 [facility] MCHC Auto (RBC) [Mass/Vol]Or dered By: Catherine Preciado on 05-15-2023 MCHC (RBC) [Mass/Vol] 34.0 g/dL 32-36 [facility] No Panel InformationOrdered By: Catherine Preciado on 05-15-2023 Estimated GFR (MDRD) Amer 100 mL/min >60 [facility] Comment on above: GFR Calc Estimated GFR (MDRD) Non-Af Amer 82 mL/min >60 [facility] Comment on above: Non- GFR Calc Platelets bldOrdered By: Warren Preciado on 05-15-2023 Platelets (Bld) [#/Vol] 252 10*3/uL 150-450 [facility] Serum or plasma albumin britni urement (mass/volume)Ordered By: Catherine Preciado on 05-15-2023 Albumin [Mass/Vol] 3.9 g/dL 3.2-5.0 [facility] Serum or plasma albumin/glob ulin mass ratioOrdered By: Catherine Preciado on 05-15-2023 Albumin/Globulin [Mass ratio] 1.1 {ratio} 0.9-2.4 [facility] Serum or plasma calcium britni urement (mass/volume)Ordered By: Catherine Preciado on 05-15-2023 Calcium [Mass/Vol] 8.8 mg/dL 8.5-10.1 [facility] Serum or plasma creatinine m easurement (mass/volume)Ordered By: Catherine Preciado on 05-15-2023 Creatinine [Mass/Vol] 1.00 mg/dL 0.70-1.30 [facility] Comment on above: The validity of the calculated GFR & GFRAA in patients over 70 years has not been determined. Clinical correlation is essential. Serum or plasma urea nitroge n measurement (mass/volume)Ordered By: Catherine Preciado on 05-15-2023 Urea nitrogen [Mass/Vol] 16 mg/dL 7-18 [facility] Thin prep Papanicolaou smear with manual screeningOrdered By: Catherine Preciado on 05-15-2023 Thin prep Papanicolaou smear with manual screening 21 U/L 15-37 [facility] Thin prep Papanicolaou smear with manual screening 5 5-15 [facility] Absolute lymphocyte countOrd ered By: Dr. Preciado on 02-12-2023 Lymphocytes Auto (Unsp spec) [#/Vol] 1.71 10*3/uL 0.83-4.51 [facility] Basophil percentageOrdered B y: Dr. Preciado on 02-12-2023 Basophils/100 WBC (Bld) 1.0 % 0-1 [facility] Bilirubin [Mass/Vol] 0.40 mg/dL 0.20-1.00 [facility] Comment on above: For patients on eltr ombopag therapy, use of Dimension [place] TBIL is not recommended. Chloride [Moles/Vol] 110 mmol/L 98-107 [facility] Eosinophils/100 WBC (Bld) 3.0 % 0-5 [facility] Glucose [Mass/Vol] 92 mg/dL 74-106 [facility] Neutrophils (Bld) [#/Vol] 4.3 10*3/uL 2.0-7.7 [facility] Neutrophils/100 WBC (Bld) 59.6 % 47-70 [facility] Potassium [Moles/Vol] 4.2 mmol/L 3.5-5.1 [facility] Protein [Mass/Vol] 7.2 g/dL 6.4-8.2 [facility] Sodium [Moles/Vol] 141 mmol/L 136-145 [facility] WBC (Bld) [#/Vol] 7.2 10*3/uL 4.4-11.0 [facility] Blood erythrocytes count (nu mber/volume)Ordered By: Dr. Preciado on 02-12-2023 RBC (Bld) [#/Vol] 4.80 10*6/uL 4.6-6.2 [facility] Blood hemoglobin measurement (mass/volume)Ordered By: Dr. Preciado on 02-12-2023 Hemoglobin (Bld) [Mass/Vol] 15.7 g/dL 13.0-16.5 [facility] Blood lymphocytes/100 leukoc ytesOrdered By: Dr. Preciado on 02-12-2023 Lymphocytes/100 WBC (Bld) 23.7 % 19-41 [facility] Blood monocytes/100 leukocyt esOrdered By: Dr. Preciado on 02-12-2023 Monocytes/100 WBC (Bld) 12.4 % 0-10 [facility] Blood platelet mean volumeOr dered By: Dr. Preciado on 02-12-2023 Platelet mean volume (Bld) [Entitic vol] 10.5 fL 6.2-12.0 [facility] Determination of erythrocyte mean corpuscular volume (MCV)Ordered By: Dr. Preciado on 02-12-2023 MCV (RBC) [Entitic vol] 96.5 fL 80-94 [facility] Hematocrit Auto (Bld) [Volum e fraction]Ordered By: Dr. Preciado on 02-12-2023 Hematocrit (Bld) [Volume fraction] 46.3 % 40-54 [facility] Laboratory - Chemistry and C hemistry - challengeOrdered By: Dr. Preciado on 02-12-2023 ALP [Catalytic activity/Vol] 97 U/L 45-117 [facility] ALT [Catalytic activity/Vol] 41 U/L 16-61 [facility] CO2 [Moles/Vol] 27.0 mmol/L 21.0-32.0 [facility] Globulin (S) [Mass/Vol] 3.5 g/dL 2.2-4.2 [facility] Urea nitrogen/Creatinine [Mass ratio] 19.0 mg/mg 10-20 [facility] Laboratory - Hematology and Cell countsOrdered By: Dr. Preciado on 02-12-2023 Erythrocyte distribution width (RBC) [Entitic vol] 47.7 fL 35.1-43.9 [facility] Erythrocyte distribution width (RBC) [Ratio] 13.5 % 11.6-14.6 [facility] Immature granulocytes/100 WBC (Bld) 0.300 % 0.0-0.9 [facility] Comment on above: IG% - Immature Granu locytes (promyelocytes, myelocytes and metamyelocytes) > 1% indicates that a LEFT SHIFT is Present. MCH (RBC) [Entitic mass] 32.7 pg 27.0-32.0 [facility] Nucleated RBC/100 WBC (Bld) [Ratio] 0 % 0-5 [facility] MCHC Auto (RBC) [Mass/Vol]Or dered By: Dr. Preciado on 02-12-2023 MCHC (RBC) [Mass/Vol] 33.9 g/dL 32-36 [facility] No Panel InformationOrdered By: Dr. Preciado on 02-12-2023 Estimated GFR (MDRD) Amer 106 mL/min >60 [facility] Comment on above: GFR Calc Estimated GFR (MDRD) Non-Af Amer 88 mL/min >60 [facility] Comment on above: Non- GFR Calc Platelets bldOrdered By: Dr. Preciado on 02-12-2023 Platelets (Bld) [#/Vol] 234 10*3/uL 150-450 [facility] Serum or plasma albumin britni urement (mass/volume)Ordered By: Dr. Preciado on 02-12-2023 Albumin [Mass/Vol] 3.7 g/dL 3.2-5.0 [facility] Serum or plasma albumin/glob ulin mass ratioOrdered By: Dr. Preciado on 02-12-2023 Albumin/Globulin [Mass ratio] 1.1 {ratio} 0.9-2.4 [facility] Serum or plasma calcium britni urement (mass/volume)Ordered By: Dr. Preciado on 02-12-2023 Calcium [Mass/Vol] 8.9 mg/dL 8.5-10.1 [facility] Serum or plasma creatinine m easurement (mass/volume)Ordered By: Dr. Preciado on 02-12-2023 Creatinine [Mass/Vol] 0.94 mg/dL 0.70-1.30 [facility] Comment on above: The validity of the calculated GFR & GFRAA in patients over 70 years has not been determined. Clinical correlation is essential. Serum or plasma urea nitroge n measurement (mass/volume)Ordered By: Dr. Preciado on 02-12-2023 Urea nitrogen [Mass/Vol] 18 mg/dL 7-18 [facility] Thin prep Papanicolaou smear with manual screeningOrdered By: Dr. Preciado on 02-12-2023 Thin prep Papanicolaou smear with manual screening 28 U/L 15-37 [facility] Thin prep Papanicolaou smear with manual screening 4 5-15 [facility] Absolute lymphocyte countOrd ered By: Dr. rPeciado on 11-12-2022 Lymphocytes Auto (Unsp spec) [#/Vol] 1.55 10*3/uL 0.83-4.51 [facility] Basophil percentageOrdered B y: Dr. Preciado on 11-12-2022 Basophils/100 WBC (Bld) 0.8 % 0-1 [facility] Bilirubin [Mass/Vol] 0.70 mg/dL 0.20-1.00 [facility] Comment on above: For patients on eltr ombopag therapy, use of Dimension [place] TBIL is not recommended. Chloride [Moles/Vol] 109 mmol/L 98-107 [facility] Eosinophils/100 WBC (Bld) 6.8 % 0-5 [facility] Glucose [Mass/Vol] 96 mg/dL 74-106 [facility] Neutrophils (Bld) [#/Vol] 4.2 10*3/uL 2.0-7.7 [facility] Neutrophils/100 WBC (Bld) 58.5 % 47-70 [facility] Potassium [Moles/Vol] 4.0 mmol/L 3.5-5.1 [facility] Protein [Mass/Vol] 7.3 g/dL 6.4-8.2 [facility] Sodium [Moles/Vol] 142 mmol/L 136-145 [facility] WBC (Bld) [#/Vol] 7.2 10*3/uL 4.4-11.0 [facility] Blood erythrocytes count (nu mber/volume)Ordered By: Dr. Preciado on 11-12-2022 RBC (Bld) [#/Vol] 4.72 10*6/uL 4.6-6.2 [facility] Blood hemoglobin measurement (mass/volume)Ordered By: Dr. Preciado on 11-12-2022 Hemoglobin (Bld) [Mass/Vol] 15.4 g/dL 13.0-16.5 [facility] Blood lymphocytes/100 leukoc ytesOrdered By: Dr. Preciado on 11-12-2022 Lymphocytes/100 WBC (Bld) 21.6 % 19-41 [facility] Blood monocytes/100 leukocyt esOrdered By: Dr. Preciado on 11-12-2022 Monocytes/100 WBC (Bld) 12.0 % 0-10 [facility] Blood platelet mean volumeOr dered By: Dr. Preciado on 11-12-2022 Platelet mean volume (Bld) [Entitic vol] 10.6 fL 6.2-12.0 [facility] Determination of erythrocyte mean corpuscular volume (MCV)Ordered By: Dr. Preciado on 11-12-2022 MCV (RBC) [Entitic vol] 96.6 fL 80-94 [facility] Hematocrit Auto (Bld) [Volum e fraction]Ordered By: Dr. Preciado on 11-12-2022 Hematocrit (Bld) [Volume fraction] 45.6 % 40-54 [facility] Laboratory - Chemistry and C hemistry - challengeOrdered By: Dr. Preciado on 11-12-2022 ALP [Catalytic activity/Vol] 82 U/L 45-117 [facility] ALT [Catalytic activity/Vol] 35 U/L 16-61 [facility] CO2 [Moles/Vol] 26.0 mmol/L 21.0-32.0 [facility] Globulin (S) [Mass/Vol] 3.6 g/dL 2.2-4.2 [facility] Urea nitrogen/Creatinine [Mass ratio] 17.6 mg/mg 10-20 [facility] Laboratory - Hematology and Cell countsOrdered By: Dr. Preciado on 11-12-2022 Erythrocyte distribution width (RBC) [Entitic vol] 46.7 fL 35.1-43.9 [facility] Erythrocyte distribution width (RBC) [Ratio] 13.0 % 11.6-14.6 [facility] Immature granulocytes/100 WBC (Bld) 0.300 % 0.0-0.9 [facility] Comment on above: IG% - Immature Granu locytes (promyelocytes, myelocytes and metamyelocytes) > 1% indicates that a LEFT SHIFT is Present. MCH (RBC) [Entitic mass] 32.6 pg 27.0-32.0 [facility] Nucleated RBC/100 WBC (Bld) [Ratio] 0 % 0-5 [facility] MCHC Auto (RBC) [Mass/Vol]Or dered By: Dr. Preciado on 11-12-2022 MCHC (RBC) [Mass/Vol] 33.8 g/dL 32-36 [facility] No Panel InformationOrdered By: Dr. Preciado on 11-12-2022 Estimated GFR (MDRD) Amer 98 mL/min >60 [facility] Comment on above: GFR Calc Estimated GFR (MDRD) Non-Af Amer 81 mL/min >60 [facility] Comment on above: Non- GFR Calc Platelets bldOrdered By: Dr. Preciado on 11-12-2022 Platelets (Bld) [#/Vol] 261 10*3/uL 150-450 [facility] Serum or plasma albumin britni urement (mass/volume)Ordered By: Dr. Preciado on 11-12-2022 Albumin [Mass/Vol] 3.7 g/dL 3.2-5.0 [facility] Serum or plasma albumin/glob ulin mass ratioOrdered By: Dr. Preciado on 11-12-2022 Albumin/Globulin [Mass ratio] 1.0 {ratio} 0.9-2.4 [facility] Serum or plasma calcium britni urement (mass/volume)Ordered By: Dr. Preciado on 11-12-2022 Calcium [Mass/Vol] 9.3 mg/dL 8.5-10.1 [facility] Serum or plasma creatinine m easurement (mass/volume)Ordered By: Dr. Preciado on 11-12-2022 Creatinine [Mass/Vol] 1.02 mg/dL 0.70-1.30 [facility] Comment on above: The validity of the calculated GFR & GFRAA in patients over 70 years has not been determined. Clinical correlation is essential. Serum or plasma urea nitroge n measurement (mass/volume)Ordered By: Dr. Preciado on 11-12-2022 Urea nitrogen [Mass/Vol] 18 mg/dL 7-18 [facility] Thin prep Papanicolaou smear with manual screeningOrdered By: Dr. Preciado on 11-12-2022 Thin prep Papanicolaou smear with manual screening 26 U/L 15-37 [facility] Thin prep Papanicolaou smear with manual screening 7 5-15 [facility] Routine wound cultureOrdered By: Levi Wong on 11-08-2022 Bacteria identified Cx Nom (Wound) No growth aerobically. [facility] Gram stain for investigation of transfusion reactionOrdered By: Levi Wong on 11-06-2022 Microscopic observation Gram stain Nom (Unsp spec) [facility] Absolute lymphocyte countOrd ered By: Dr. Preciado on 08-15-2022 Lymphocytes Auto (Unsp spec) [#/Vol] 1.27 10*3/uL 0.83-4.51 [facility] Basophil percentageOrdered B y: Dr. Preciado on 08-15-2022 Basophils/100 WBC (Bld) 0.9 % 0-1 [facility] Bilirubin [Mass/Vol] 0.50 mg/dL 0.20-1.00 [facility] Comment on above: For patients on eltr ombopag therapy, use of Dimension [place] TBIL is not recommended. Chloride [Moles/Vol] 109 mmol/L 98-107 [facility] Eosinophils/100 WBC (Bld) 4.9 % 0-5 [facility] Glucose [Mass/Vol] 104 mg/dL 74-106 [facility] Comment on above: Fasting Glucose resu lt from 100 to 125 mg/dL suggests IMPAIRED HOMEOSTASIS per A.D.A. criteria. Neutrophils (Bld) [#/Vol] 5.0 10*3/uL 2.0-7.7 [facility] Neutrophils/100 WBC (Bld) 63.5 % 47-70 [facility] Potassium [Moles/Vol] 4.2 mmol/L 3.5-5.1 [facility] Protein [Mass/Vol] 6.8 g/dL 6.4-8.2 [facility] Sodium [Moles/Vol] 141 mmol/L 136-145 [facility] WBC (Bld) [#/Vol] 7.8 10*3/uL 4.4-11.0 [facility] Blood erythrocytes count (nu mber/volume)Ordered By: Dr. Preciado on 08-15-2022 RBC (Bld) [#/Vol] 4.71 10*6/uL 4.6-6.2 [facility] Blood hemoglobin measurement (mass/volume)Ordered By: Dr. Preciado on 08-15-2022 Hemoglobin (Bld) [Mass/Vol] 15.1 g/dL 13.0-16.5 [facility] Blood lymphocytes/100 leukoc ytesOrdered By: Dr. Preciado on 08-15-2022 Lymphocytes/100 WBC (Bld) 16.3 % 19-41 [facility] Blood monocytes/100 leukocyt esOrdered By: Dr. Preciado on 08-15-2022 Monocytes/100 WBC (Bld) 13.6 % 0-10 [facility] Blood platelet mean volumeOr dered By: Dr. Preciado on 08-15-2022 Platelet mean volume (Bld) [Entitic vol] 10.4 fL 6.2-12.0 [facility] Determination of erythrocyte mean corpuscular volume (MCV)Ordered By: Dr. Preciado on 08-15-2022 MCV (RBC) [Entitic vol] 95.8 fL 80-94 [facility] Hematocrit Auto (Bld) [Volum e fraction]Ordered By: Dr. Preciado on 08-15-2022 Hematocrit (Bld) [Volume fraction] 45.1 % 40-54 [facility] Laboratory - Chemistry and C hemistry - challengeOrdered By: Dr. Preciado on 08-15-2022 ALP [Catalytic activity/Vol] 100 U/L 45-117 [facility] ALT [Catalytic activity/Vol] 32 U/L 16-61 [facility] CO2 [Moles/Vol] 27.0 mmol/L 21.0-32.0 [facility] Globulin (S) [Mass/Vol] 3.0 g/dL 2.2-4.2 [facility] Urea nitrogen/Creatinine [Mass ratio] 13.2 mg/mg 10-20 [facility] Laboratory - Hematology and Cell countsOrdered By: Dr. Preciado on 08-15-2022 Erythrocyte distribution width (RBC) [Entitic vol] 47.3 fL 35.1-43.9 [facility] Erythrocyte distribution width (RBC) [Ratio] 13.6 % 11.6-14.6 [facility] Immature granulocytes/100 WBC (Bld) 0.800 % 0.0-0.9 [facility] Comment on above: IG% - Immature Granu locytes (promyelocytes, myelocytes and metamyelocytes) > 1% indicates that a LEFT SHIFT is Present. MCH (RBC) [Entitic mass] 32.1 pg 27.0-32.0 [facility] Nucleated RBC/100 [facility] (Bld) [[facility]] 0 [facility] [Mass/Vol]Or dered By: Dr. Preciado on 08-15-2022 MCHC (RBC) [Mass/Vol] 33.5 g/dL 32-36 [facility] No Panel InformationOrdered By: Dr. Preciado on 08-15-2022 Estimated GFR (MDRD) Amer 111 mL/min >60 [facility] Comment on above: GFR Calc Estimated GFR (MDRD) Non-Af Amer 92 mL/min >60 [facility] Comment on above: Non- GFR Calc Platelets bldOrdered By: Dr. Preciado on 08-15-2022 Platelets (Bld) [#/Vol] 267 10*3/uL 150-450 [facility] Serum or plasma albumin britni urement (mass/volume)Ordered By: Dr. Preciado on 08-15-2022 Albumin [Mass/Vol] 3.8 g/dL 3.2-5.0 [facility] Serum or plasma albumin/glob ulin mass ratioOrdered By: Dr. Preciado on 08-15-2022 Albumin/Globulin [Mass ratio] 1.3 {ratio} 0.9-2.4 [facility] Serum or plasma calcium britni urement (mass/volume)Ordered By: Dr. Preciado on 08-15-2022 Calcium [Mass/Vol] 9.0 mg/dL 8.5-10.1 [facility] Serum or plasma creatinine m easurement (mass/volume)Ordered By: Dr. Preciado on 08-15-2022 Creatinine [Mass/Vol] 0.91 mg/dL 0.70-1.30 [facility] Comment on above: The validity of the calculated GFR & GFRAA in patients over 70 years has not been determined. Clinical correlation is essential. Serum or plasma urea nitroge n measurement (mass/volume)Ordered By: Dr. Preciado on 08-15-2022 Urea nitrogen [Mass/Vol] 12 mg/dL 7-18 [facility] Thin prep Papanicolaou smear with manual screeningOrdered By: Dr. Preciado on 08-15-2022 Thin prep Papanicolaou smear with manual screening 23 U/L 15-37 [facility] Thin prep Papanicolaou smear with manual screening 5 5-15 [facility] Atypical perinuclear antineu trophil cytoplasmic antibodies measurementOrdered By: Dr. Linda on 08-06-2022 Neutrophil cytoplasmic Ab.perinuclear.atypical IF (S) [Titer] <1:20 titer Neg:<1:20 [facility] Comment on above: The atypical pANCA p attern has been observed in asignificant percentage of patients with ulcerative colitis,primary sclerosing cholangitis and autoimmune hepatitis. Serum classic neutrophil cyt oplasmic antibody assay (units/volume)Ordered By: Dr. Linda on 08-06-2022 Neutrophil cytoplasmic Ab.classic Qn (S) <1:20 titer Neg:<1:20 [facility] Serum or plasma angiotensin converting enzyme measurement (enzymatic activity/volume)Ordered By: Dr. Linda on 08-06-2022 Angiotensin converting enzyme [Catalytic activity/Vol] 26 U/L 14-82 [facility] Comment on above: Performed at: [facility] [employer] [id number] Director: Fabricio Ford PhD, Phone: [phone] Serum perinuclear neutrophil cytoplasmic antibody titer by immunofluorescenceOrdered By: Dr. Linda on 08-06-2022 Neutrophil cytoplasmic Ab.perinuclear IF (S) [Titer] <1:20 titer Neg:<1:20 [facility] Comment on above: The presence of posi tive fluorescence exhibiting P-ANCA orC-ANCA patterns alone is not specific for the diagnosis ofWegener's Granulomatosis (WG) or microscopic polyangiitis.Decisions about treatment should not be based solely onANCA IFA results. The [employer] ANCA [employer] Consensusrecommends follow up testing of positive sera with both [place]-3 and MPO-ANCA enzyme immunoassays. As many as 5% serumsamples are positive only by EIA. Ref. AM J Clin Oesiul6886;111:507-513. XR RIBS/CHEST 3V AP RIB/OBLS /CXR RIGHTon 06-11-2022 [facility] XR Ribs - right Views and Ch est PAon 06-11-2022 IMPRESSION: Unremarkable radiographic right-sided rib series. Clothes Ironer: JAZMÍN Transcribe Date/Time: Jun 11 2022 2:40P [...] effusion or pneumothorax. DIVISION OF RADIOLOGY Provider, [facility] - 06/11/2022 * * *Final Report* * [...] IMPRESSION IMPRESSION: Unremarkable radiographic right-sided rib series. Clothes Ironer: PSCB Transcribe Date/Time: Jun 11 2022 2:40P Dictated by : FRANCES COOL MD This examination was interpreted and the report reviewed and electronically signed by: FRANCES COOL MD on Jun 11 2022 2:41PM EST [facility] Radiology Study observation (narrative) Adithya Mcelroy XR Ribs - right Views and Ch est PAOrdered By: Cc Provider on 06-11-2022 [facility] Absolute lymphocyte counton 05-16-2022 Lymphocytes Auto (Unsp spec) [#/Vol] 1.55 10*3/uL 0.83-4.51 [facility] Work Phone: Basophil percentageon 2021 Basophils/100 WBC (Bld) 0.6 % 0-1 [facility] Work Phone: Bilirubin [Mass/Vol] 0.50 mg/dL 0.20-1.00 [facility] Work Phone: Comment on above: For patients on eltr ombopag therapy, use of Dimension [place] TBIL is not recommended. Chloride [Moles/Vol] 110 mmol/L 98-107 [facility] Work Phone: Eosinophils/100 WBC (Bld) 2.1 % 0-5 [facility] Work Phone: Glucose [Mass/Vol] 91 mg/dL 74-106 [facility] Work Phone: Neutrophils (Bld) [#/Vol] 6.3 10*3/uL 2.0-7.7 [facility] Work Phone: Neutrophils/100 WBC (Bld) 66.7 % 47-70 [facility] Work Phone: Potassium [Moles/Vol] 3.9 mmol/L 3.5-5.1 [facility] Work Phone: Protein [Mass/Vol] 7.3 g/dL 6.4-8.2 [facility] Work Phone: Sodium [Moles/Vol] 141 mmol/L 136-145 [facility] Work Phone: WBC (Bld) [#/Vol] 9.4 10*3/uL 4.4-11.0 [facility] Work Phone: Blood erythrocytes count (nu mber/volume)on 05-16-2022 RBC (Bld) [#/Vol] 4.75 10*6/uL 4.6-6.2 [facility] Work Phone: Blood hemoglobin measurement (mass/volume)on 05-16-2022 Hemoglobin (Bld) [Mass/Vol] 16.0 g/dL 13.0-16.5 [facility] Work Phone: Blood lymphocytes/100 leukoc yteson 05-16-2022 Lymphocytes/100 WBC (Bld) 16.5 % 19-41 [facility] Work Phone: Blood monocytes/100 leukocyt eson 05-16-2022 Monocytes/100 WBC (Bld) 13.4 % 0-10 [facility] Work Phone: Blood platelet mean volumeon 05-16-2022 Platelet mean volume (Bld) [Entitic vol] 10.7 fL 6.2-12.0 [facility] Work Phone: Determination of erythrocyte mean corpuscular volume (MCV)on 05-16-2022 MCV (RBC) [Entitic vol] 96.6 fL 80-94 [facility] Work Phone: Hematocrit Auto (Bld) [Volum e fraction]on 05-16-2022 Hematocrit (Bld) [Volume fraction] 45.9 % 40-54 [facility] Work Phone: Laboratory - Chemistry and C hemistry - challengeon 05-16-2022 ALP [Catalytic activity/Vol] 93 U/L 45-117 [facility] Work Phone: ALT [Catalytic activity/Vol] 35 U/L 16-61 [facility] Work Phone: CO2 [Moles/Vol] 26.0 mmol/L 21.0-32.0 [facility] Work Phone: Globulin (S) [Mass/Vol] 3.6 g/dL 2.2-4.2 [facility] Work Phone: Urea nitrogen/Creatinine [Mass ratio] 14.2 mg/mg 10-20 [facility] Work Phone: Laboratory - Hematology and Cell countson 05-16-2022 Erythrocyte distribution width (RBC) [Entitic vol] 47.2 fL 35.1-43.9 [facility] Work Phone: Erythrocyte distribution width (RBC) [Ratio] 13.4 % 11.6-14.6 [facility] Work Phone: Immature granulocytes/100 WBC (Bld) 0.700 % 0.0-0.9 [facility] Work Phone: Comment on above: IG% - Immature Granu locytes (promyelocytes, myelocytes and metamyelocytes) > 1% indicates that a LEFT SHIFT is Present. MCH (RBC) [Entitic mass] 33.7 pg 27.0-32.0 [facility] Work Phone: Nucleated RBC/100 WBC (Bld) [Ratio] 0 % 0-5 [facility] Work Phone: MCHC Auto (RBC) [Mass/Vol]on 05-16-2022 MCHC (RBC) [Mass/Vol] 34.9 g/dL 32-36 [facility] Work Phone: No Panel Informationon 05-16 Estimated GFR (MDRD) Amer 101 mL/min >60 [facility] Work Phone: Comment on above: GFR Calc Estimated GFR (MDRD) Non-Af Amer 84 mL/min >60 [facility] Work Phone: Comment on above: Non- GFR Calc Platelets bldon 05-16-2022 Platelets (Bld) [#/Vol] 252 10*3/uL 150-450 [facility] Work Phone: Serum or plasma albumin britni urement (mass/volume)on 05-16-2022 Albumin [Mass/Vol] 3.7 g/dL 3.2-5.0 [facility] Work Phone: Serum or plasma albumin/glob ulin mass ratioon 05-16-2022 Albumin/Globulin [Mass ratio] 1.0 {ratio} 0.9-2.4 [facility] Work Phone: Serum or plasma calcium britni urement (mass/volume)on 05-16-2022 Calcium [Mass/Vol] 9.2 mg/dL 8.5-10.1 [facility] Work Phone: Serum or plasma creatinine m easurement (mass/volume)on 05-16-2022 Creatinine [Mass/Vol] 0.99 mg/dL 0.70-1.30 [facility] Work Phone: Comment on above: The validity of the calculated GFR & GFRAA in patients over 70 years has not been determined. Clinical correlation is essential. Serum or plasma urea nitroge n measurement (mass/volume)on 05-16-2022 Urea nitrogen [Mass/Vol] 14 mg/dL 7-18 [facility] Work Phone: [phone] Thin prep Papanicolaou smear with manual screeningon 05-16-2022 Thin prep Papanicolaou smear with manual screening 18 U/L 15-37 [facility] Work Phone: Thin prep Papanicolaou smear with manual screening 5 5-15 [facility] Work Phone: Absolute lymphocyte counton 04-11-2022 Lymphocytes Auto (Unsp spec) [#/Vol] 1.60 10*3/uL 0.83-4.51 [facility] Work Phone: Basophil percentageon 2021 Basophils/100 WBC (Bld) 0.8 % 0-1 [facility] Work Phone: Eosinophils/100 WBC (Bld) 2.6 % 0-5 [facility] Work Phone: [phone] Neutrophils (Bld) [#/Vol] 4.7 10*3/uL 2.0-7.7 [facility] Work Phone: [phone] Neutrophils/100 WBC (Bld) 60.8 % 47-70 [facility] Work Phone: WBC (Bld) [#/Vol] 7.7 10*3/uL 4.4-11.0 [facility] Work Phone: [phone] Blood erythrocytes count (nu mber/volume)on 04-11-2022 RBC (Bld) [#/Vol] 4.73 10*6/uL 4.6-6.2 [facility] Work Phone: Blood hemoglobin measurement (mass/volume)on 04-11-2022 Hemoglobin (Bld) [Mass/Vol] 15.5 g/dL 13.0-16.5 [facility] Work Phone: Blood lymphocytes/100 leukoc yteson 04-11-2022 Lymphocytes/100 WBC (Bld) 20.8 % 19-41 [facility] Work Phone: Blood monocytes/100 leukocyt eson 04-11-2022 Monocytes/100 WBC (Bld) 14.1 % 0-10 [facility] Work Phone: Blood platelet mean volumeon 04-11-2022 Platelet mean volume (Bld) [Entitic vol] 10.3 fL 6.2-12.0 [facility] Work Phone: Determination of erythrocyte mean corpuscular volume (MCV)on 04-11-2022 MCV (RBC) [Entitic vol] 95.8 fL 80-94 [facility] Work Phone: Erythrocyte sedimentation ra yogi 04-11-2022 ESR (Bld) [Velocity] 3 mm/h 0-20 [facility]: Hematocrit Auto (Bld) [Volum e fraction]on 04-11-2022 Hematocrit (Bld) [Volume fraction] 45.3 % 40-54 [facility] Work Phone: Laboratory - Hematology and Cell countson 04-11-2022 Erythrocyte distribution width (RBC) [Entitic vol] 45.4 fL 35.1-43.9 [facility] Work Phone: Erythrocyte distribution width (RBC) [Ratio] 13.2 % 11.6-14.6 [facility] Work Phone: Immature granulocytes/100 WBC (Bld) 0.900 % 0.0-0.9 [facility] Work Phone: Comment on above: IG% - Immature Granu locytes (promyelocytes, myelocytes and metamyelocytes) > 1% indicates that a LEFT SHIFT is Present. MCH (RBC) [Entitic mass] 32.8 pg 27.0-32.0 [facility] Work Phone: Nucleated RBC/100 WBC (Bld) [Ratio] 0 % 0-5 [facility] Work Phone: MCHC Auto (RBC) [Mass/Vol]on 04-11-2022 MCHC (RBC) [Mass/Vol] 34.2 g/dL 32-36 [facility] Work Phone: Platelets bldon 04-11-2022 Platelets (Bld) [#/Vol] 276 10*3/uL 150-450 [facility] Work Phone: Serum or plasma C reactive p rotein measurement (mass/volume)on 04-11-2022 CRP [Mass/Vol] mg/L 0.0-3.0 [facility] Work Phone: Comment on above: C-Reactive Protein ( CRP) provides useful information for thediagnosis, therapy and monitoring of inflammatory processesand associated diseases. For the evaluation of Relative Riskfor Cardiovascular Disease, a High Sensitivity CRP (HSCRP)should be ordered. Absolute lymphocyte counton 02-21-2022 Lymphocytes Auto (Unsp spec) [#/Vol] 2.29 10*3/uL 0.83-4.51 [facility] Work Phone: Basophil percentageon 2021 Basophils/100 WBC (Bld) 1.0 % 0-1 [facility] Work Phone: Bilirubin [Mass/Vol] 0.20 mg/dL 0.20-1.00 [facility] Work Phone: Comment on above: For patients on eltr ombopag therapy, use of Dimension [place] TBIL is not recommended. Chloride [Moles/Vol] 104 mmol/L 98-107 [facility] Work Phone: Eosinophils/100 WBC (Bld) 4.1 % 0-5 [facility] Work Phone: Glucose [Mass/Vol] 92 mg/dL 74-106 [facility] Work Phone: [phone] Neutrophils (Bld) [#/Vol] 5.9 10*3/uL 2.0-7.7 [facility] Work Phone: Neutrophils/100 WBC (Bld) 57.0 % 47-70 [facility] Work Phone: Potassium [Moles/Vol] 3.8 mmol/L 3.5-5.1 [facility] Work Phone: Protein [Mass/Vol] 7.6 g/dL 6.4-8.2 [facility] Work Phone: Sodium [Moles/Vol] 138 mmol/L 136-145 [facility] Work Phone: WBC (Bld) [#/Vol] 10.4 10*3/uL 4.4-11.0 [facility] Work Phone: Blood erythrocytes count (nu mber/volume)on 02-21-2022 RBC (Bld) [#/Vol] 4.82 10*6/uL 4.6-6.2 [facility] Work Phone: Blood hemoglobin measurement (mass/volume)on 02-21-2022 Hemoglobin (Bld) [Mass/Vol] 15.8 g/dL 13.0-16.5 [facility] Work Phone: Blood lymphocytes/100 leukoc yteson 02-21-2022 Lymphocytes/100 WBC (Bld) 22.1 % 19-41 [facility] Work Phone: Blood manual differential co mment interpretation (narrative result)on 02-21-2022 Manual differential comment Andrew (Bld) [Interp] SCANNED [facility] Work Phone: Blood monocytes/100 leukocyt eson 02-21-2022 Monocytes/100 WBC (Bld) 14.6 % 0-10 [facility] Work Phone: Blood platelet mean volumeon 02-21-2022 Platelet mean volume (Bld) [Entitic vol] 10.5 fL 6.2-12.0 [facility] Work Phone: Determination of erythrocyte mean corpuscular volume (MCV)on 02-21-2022 MCV (RBC) [Entitic vol] 96.3 fL 80-94 [facility] Work Phone: Hematocrit Auto (Bld) [Volum e fraction]on 02-21-2022 Hematocrit (Bld) [Volume fraction] 46.4 % 40-54 [facility] Work Phone: Laboratory - Chemistry and C hemistry - challengeon 02-21-2022 ALP [Catalytic activity/Vol] 83 U/L 45-117 [facility] Work Phone: ALT [Catalytic activity/Vol] 50 U/L 16-61 [facility] Work Phone: CO2 [Moles/Vol] 26.0 mmol/L 21.0-32.0 [facility] Work Phone: Globulin (S) [Mass/Vol] 3.8 g/dL 2.2-4.2 [facility] Work Phone: Urea nitrogen/Creatinine [Mass ratio] 16.8 mg/mg 10-20 [facility] Work Phone: Laboratory - Hematology and Cell countson 02-21-2022 Erythrocyte distribution width (RBC) [Entitic vol] 46.4 fL 35.1-43.9 [facility] Work Phone: Erythrocyte distribution width (RBC) [Ratio] 13.2 % 11.6-14.6 [facility] Work Phone: Immature granulocytes/100 WBC (Bld) 1.200 % 0.0-0.9 [facility] Work Phone: Comment on above: IG% - Immature Granu locytes (promyelocytes, myelocytes and metamyelocytes) > 1% indicates that a LEFT SHIFT is Present. MCH (RBC) [Entitic mass] 32.8 pg 27.0-32.0 [facility] Work Phone: Nucleated RBC/100 WBC (Bld) [Ratio] 0 % 0-5 [facility] Work Phone: MCHC Auto (RBC) [Mass/Vol]on 02-21-2022 MCHC (RBC) [Mass/Vol] 34.1 g/dL 32-36 [facility] Work Phone: No Panel Informationon 02-21 Estimated GFR (MDRD) Amer 77 mL/min >60 [facility] Work Phone: Comment on above: GFR Calc Estimated GFR (MDRD) Non-Af Amer 64 mL/min >60 [facility] Work Phone: Comment on above: Non- GFR Calc Platelets bldon 02-21-2022 Platelets (Bld) [#/Vol] 280 10*3/uL 150-450 [facility] Work Phone: Review by pathologiston Pathologist review Andrew (Unsp spec) [Interp] Reviewed [facility] Work Phone: Comment on above: Previous reported re sult: Anita julio Edited by: SERENITY on 02/24/22:1331MacrocytosisClinical correlation necessary.Blake Muñiz M.D. 02/24/22 AMENDED REPORT 02/24/22 1331 PATH REV previously reported as: Anita julio Serum or plasma albumin britni urement (mass/volume)on 02-21-2022 Albumin [Mass/Vol] 3.8 g/dL 3.2-5.0 [facility] Work Phone: Serum or plasma albumin/glob ulin mass ratioon 02-21-2022 Albumin/Globulin [Mass ratio] 1.0 {ratio} 0.9-2.4 [facility] Work Phone: Serum or plasma calcium britni urement (mass/volume)on 02-21-2022 Calcium [Mass/Vol] 9.2 mg/dL 8.5-10.1 [facility] Work Phone: Serum or plasma creatinine m easurement (mass/volume)on 02-21-2022 Creatinine [Mass/Vol] 1.25 mg/dL 0.70-1.30 [facility] Work Phone: Comment on above: The validity of the calculated GFR & GFRAA in patients over 70 years has not been determined. Clinical correlation is essential. Serum or plasma urea nitroge n measurement (mass/volume)on 02-21-2022 Urea nitrogen [Mass/Vol] 21 mg/dL 7-18 [facility] Work Phone: Thin prep Papanicolaou smear with manual screeningon 02-21-2022 Thin prep Papanicolaou smear with manual screening 24 U/L 15-37 [facility] Work Phone: Thin prep Papanicolaou smear with manual screening 8 5-15 [facility] Work Phone: Absolute lymphocyte counton 11-14-2021 Lymphocytes Auto (Unsp spec) [#/Vol] 1.82 10*3/uL 0.83-4.51 [facility] Work Phone: Basophil percentageon 2021 Basophils/100 WBC (Bld) 0.8 % 0-1 [facility] Work Phone: Bilirubin [Mass/Vol] 0.50 mg/dL 0.20-1.00 [facility] Work Phone: Comment on above: For patients on eltr ombopag therapy, use of Dimension [place] TBIL is not recommended. Chloride [Moles/Vol] 105 mmol/L 98-107 [facility] Work Phone: Eosinophils/100 WBC (Bld) 3.7 % 0-5 [facility] Work Phone: Glucose [Mass/Vol] 92 mg/dL 74-106 [facility] Work Phone: Neutrophils (Bld) [#/Vol] 5.4 10*3/uL 2.0-7.7 [facility] Work Phone: Neutrophils/100 WBC (Bld) 62.6 % 47-70 [facility] Work Phone: Potassium [Moles/Vol] 3.8 mmol/L 3.5-5.1 [facility] Work Phone: Protein [Mass/Vol] 7.5 g/dL 6.4-8.2 [facility] Work [facility]: Sodium [Moles/Vol] 139 mmol/L 136-145 [facility] Work Phone: WBC (Bld) [#/Vol] 8.6 10*3/uL 4.4-11.0 [facility] Work Phone: Blood erythrocytes count (nu mber/volume)on 11-14-2021 RBC (Bld) [#/Vol] 4.85 10*6/uL 4.6-6.2 [facility]: Blood hemoglobin measurement (mass/volume)on 11-14-2021 Hemoglobin (Bld) [Mass/Vol] 16.2 g/dL 13.0-16.5 [facility] Work Phone: Blood lymphocytes/100 leukoc yteson 11-14-2021 Lymphocytes/100 WBC (Bld) 21.3 % 19-41 [facility] Work Phone: Blood monocytes/100 leukocyt eson 11-14-2021 Monocytes/100 WBC (Bld) 11.1 % 0-10 [facility] Work Phone: Blood platelet mean volumeon 11-14-2021 Platelet mean volume (Bld) [Entitic vol] 10.2 fL 6.2-12.0 [facility] Work Phone: Determination of erythrocyte mean corpuscular volume (MCV)on 11-14-2021 MCV (RBC) [Entitic vol] 95.3 fL 80-94 [facility] Work Phone: Hematocrit Auto (Bld) [Volum e fraction]on 11-14-2021 Hematocrit (Bld) [Volume fraction] 46.2 % 40-54 [facility] Work Phone: Laboratory - Chemistry and C hemistry - challengeon 11-14-2021 ALP [Catalytic activity/Vol] 95 U/L 45-117 [facility] Work Phone: ALT [Catalytic activity/Vol] 44 U/L 16-61 [facility] Work Phone: CO2 [Moles/Vol] 29.0 mmol/L 21.0-32.0 [facility] Work Phone: Globulin (S) [Mass/Vol] 3.9 g/dL 2.2-4.2 [facility] Work Phone: Urea nitrogen/Creatinine [Mass ratio] 11.8 mg/mg 10-20 [facility] Work Phone: Laboratory - Hematology and Cell countson 11-14-2021 Erythrocyte distribution width (RBC) [Entitic vol] 45.1 fL 35.1-43.9 [facility] Work Phone: Erythrocyte distribution width (RBC) [Ratio] 13.1 % 11.6-14.6 [facility] Work Phone: Immature granulocytes/100 WBC (Bld) 0.500 % 0.0-0.9 [facility] Work Phone: Comment on above: IG% - Immature Granu locytes (promyelocytes, myelocytes and metamyelocytes) > 1% indicates that a LEFT SHIFT is Present. MCH (RBC) [Entitic mass] 33.4 pg 27.0-32.0 [facility] Work Phone: Nucleated RBC/100 WBC (Bld) [Ratio] 0 % 0-5 [facility] Work Phone: MCHC Auto (RBC) [Mass/Vol]on 11-14-2021 MCHC (RBC) [Mass/Vol] 35.1 g/dL 32-36 [facility] Work Phone: No Panel Informationon 11-14 Estimated GFR (MDRD) Amer 98 mL/min >60 [facility] Work Phone: Comment on above: GFR Calc Estimated GFR (MDRD) Non-Af Amer 81 mL/min >60 [facility] Work Phone: Comment on above: Non- GFR Calc Platelets bldon 11-14-2021 Platelets (Bld) [#/Vol] 272 10*3/uL 150-450 [facility] Work Phone: Serum or plasma albumin britni urement (mass/volume)on 11-14-2021 Albumin [Mass/Vol] 3.6 g/dL 3.2-5.0 [facility] Work Phone: Serum or plasma albumin/glob ulin mass ratioon 11-14-2021 Albumin/Globulin [Mass ratio] 0.9 {ratio} 0.9-2.4 [facility] Work Phone: Serum or plasma calcium britni urement (mass/volume)on 11-14-2021 Calcium [Mass/Vol] 8.9 mg/dL 8.5-10.1 [facility] Work Phone: Serum or plasma creatinine m easurement (mass/volume)on 11-14-2021 Creatinine [Mass/Vol] 1.02 mg/dL 0.70-1.30 [facility] Work Phone: Comment on above: The validity of the calculated GFR & GFRAA in patients over 70 years has not been determined. Clinical correlation is essential. Serum or plasma urea nitroge n measurement (mass/volume)on 11-14-2021 Urea nitrogen [Mass/Vol] 12 mg/dL 7-18 [facility] Work Phone: Thin prep Papanicolaou smear with manual screeningon 11-14-2021 Thin prep Papanicolaou smear with manual screening 24 U/L 15-37 [facility] Work Phone: Thin prep Papanicolaou smear with manual screening 5 5-15 [facility] Work Phone: XR CHEST 2 VIEWSon 2 [...] 11/09/2021 1:35:24 PM Ordering Provider: NEGRO [facility] ([place]) .Auto Diffon 11-08-2021 Basophil, Absolute 0.10 10 3/mcL Normal 0.00-0.19 [facility] ([place]) Comment on above: Performed By: #### C BC, ADIFF, ANEU, BMP, ALB, GFR #### [address] [address] Basophils/100 WBC (Bld) 0.6 % Normal 0.0-2.5 [facility] ([place]) Comment on above: Performed By: #### C BC, ADIFF, ANEU, BMP, ALB, GFR #### [address] [address] Eosinophil, Absolute 0.60 10 3/mcL High 0.00-0.40 [facility] ([place]) Comment on above: Performed By: #### C BC, ADIFF, ANEU, BMP, ALB, GFR #### [address] [address] Eosinophils/100 WBC (Bld) 6.1 % Normal 0.0-7.0 [facility] ([place]) Comment on above: Performed By: #### C BC, ADIFF, ANEU, BMP, ALB, GFR #### [address] [address] Lymphocyte, Absolute 1.80 10 3/mcL Normal 0.77-3.85 [facility] ([place]) Comment on above: Performed By: #### C BC, ADIFF, ANEU, BMP, ALB, GFR #### [address] [address] Lymphocytes/100 WBC (Bld) 19.1 % Normal 10.0-50.0 [facility] ([place]) Comment on above: Performed By: #### C BC, ADIFF, ANEU, BMP, ALB, GFR #### [address] [address] Monocyte, Absolute 1.40 10 3/mcL High 0.15-1.00 [facility] ([place]) Comment on above: Performed By: #### C BC, ADIFF, ANEU, BMP, ALB, GFR #### [address] [address] Monocytes/100 WBC (Bld) 14.4 % High 1.7-13.0 [facility] ([place]) Comment on above: Performed By: #### C BC, ADIFF, ANEU, BMP, ALB, GFR #### [address] [address] Neutrophils/100 WBC (Bld) 59.8 % Normal 37.0-80.0 [facility] ([place]) Comment on above: Performed By: #### C BC, ADIFF, ANEU, BMP, ALB, GFR #### [address] [address] .GFRon 11-08-2021 GFR 93 ml/min/1.73sqm Normal [facility] ([place]) Comment on above: Result Comment: GFR Population [...] BC, ADIFF, ANEU, BMP, ALB, GFR #### [address] [address] GFR Non- 76 ml/min/1.73sqm Normal [facility] ([place]) Comment on above: Result Comment: GFR Population [...] BC, ADIFF, ANEU, BMP, ALB, GFR #### [address] [address] .NEUABSon 11-08-2021 Neutrophil, Absolute 5.60 10 3/mcL Normal 2.85-6.16 [facility] ([place]) Comment on above: Performed By: #### C BC, ADIFF, ANEU, BMP, ALB, GFR #### [address] [address] ALBon 11-08-2021 Albumin Level 3.9 G/dL Normal 3.5-5.0 [facility] ([place]) Comment on above: Performed By: #### C BC, ADIFF, ANEU, BMP, ALB, GFR #### [address] [address] BMPon 11-08-2021 BUN/Creatinine Ratio 15 ratio Normal 7-27 [facility] ([place]) Comment on above: Performed By: #### C BC, ADIFF, ANEU, BMP, ALB, GFR #### [address] [address] Calcium [Mass/Vol] 8.9 mg/dL Normal 8.4-10.2 [facility] ([place]) Comment on above: Performed By: #### C BC, ADIFF, ANEU, BMP, ALB, GFR #### [place] [id number] Chloride [Moles/Vol] 106 mmol/L Normal 98-107 [facility] ([place]) Comment on above: Performed By: #### C BC, ADIFF, ANEU, BMP, ALB, GFR #### [place] [address] CO2 [Moles/Vol] 27 mmol/L Normal 22-29 [facility] ([place]) Comment on above: Performed By: #### C BC, ADIFF, ANEU, BMP, ALB, GFR #### [address] [address] Creatinine [Mass/Vol] 1.02 mg/dL Normal 0.70-1.30 [facility] ([place]) Comment on above: Performed By: #### C BC, ADIFF, ANEU, BMP, ALB, GFR #### [address] [address] Electrolyte Balance 8.0 mEq/L Normal 4.0-15.0 [facility] ([place]) Comment on above: Performed By: #### C BC, ADIFF, ANEU, BMP, ALB, GFR #### [address] [address] Glucose [Mass/Vol] 88 mg/dL Normal 70-105 [facility] ([place]) Comment on above: Performed By: #### C BC, ADIFF, ANEU, BMP, ALB, GFR #### [address] [address] Potassium [Moles/Vol] 4.4 mmol/L Normal 3.5-5.1 [facility] ([place]) Comment on above: Performed By: #### C BC, ADIFF, ANEU, BMP, ALB, GFR #### [address] [address] Sodium [Moles/Vol] 141 mmol/L Normal 136-145 [facility] ([place]) Comment on above: Performed By: #### C BC, ADIFF, ANEU, BMP, ALB, GFR #### [address] [address] Urea nitrogen [Mass/Vol] 15 mg/dL Normal 7-18 [facility] ([place]) Comment on above: Performed By: #### C BC, ADIFF, ANEU, BMP, ALB, GFR #### [address] [address] CBCon 11-08-2021 Erythrocyte distribution width (RBC) [Ratio] 13.7 % Normal 11.5-14.5 [facility] ([place]) Comment on above: Performed By: #### C BC, ADIFF, ANEU, BMP, ALB, GFR #### [place] [address] Hematocrit (Bld) [Volume fraction] 46.1 % Normal 42.0-52.0 [facility] ([place]) Comment on above: Performed By: #### C BC, ADIFF, ANEU, BMP, ALB, GFR #### [address] [address] Hgb 15.7 G/dL Normal 14.0-18.0 [facility] ([place]) Comment on above: Performed By: #### C BC, ADIFF, ANEU, BMP, ALB, GFR #### [address] [address] MCH (RBC) [Entitic mass] 32.2 pg High 27.0-31.2 [facility] ([place]) Comment on above: Performed By: #### C BC, ADIFF, ANEU, BMP, ALB, GFR #### [address] [address] MCHC 33.9 G/dL Normal 31.8-35.4 [facility] ([place]) Comment on above: Performed By: #### C BC, ADIFF, ANEU, BMP, ALB, GFR #### [address] [address] MCV (RBC) [Entitic vol] 94.9 fL High 80.0-94.0 [facility] ([place]) Comment on above: Performed By: #### C BC, ADIFF, ANEU, BMP, ALB, GFR #### [address] [address] Platelet 260 10 3/mcL Normal 130-400 [facility] ([place]) Comment on above: Performed By: #### C BC, ADIFF, ANEU, BMP, ALB, GFR #### [place] [id number] Platelet mean volume (Bld) [Entitic vol] 8.1 fL Normal 7.4-10.4 [facility] ([place]) Comment on above: Performed By: #### C BC, ADIFF, ANEU, BMP, ALB, GFR #### [place] [phone] RBC 4.86 10 6/mcL Normal 4.04-6.13 [facility] ([place]) Comment on above: Performed By: #### C BC, ADIFF, ANEU, BMP, ALB, GFR #### [address] [address] WBC 9.40 10 3/mcL Normal 4.60-10.80 [facility] ([place]) Comment on above: Performed By: #### C BC, ADIFF, ANEU, BMP, ALB, GFR #### [address] [address] LABORATORYOrdered By: Fracisco Prather on 11-08-2021 Albumin [...] [degF] Dr. Kaden Diamond MD Work Phone: [facility] 06-17-2025 18:04-0400 Diastolic blood pressure 84 mm[Hg] Dr. Kaden Diamond MD Work Phone: [facility] 06-17-2025 18:04-0400 Heart rate 75 /min Dr. Kaden Diamond MD Work Phone: [facility] 06-17-2025 18:04-0400 Respiratory rate 18 /min Dr. Kaden Diamond MD Work Phone: [facility] 06-17-2025 18:04-0400 SaO2% (BldA) [Mass fraction] 95 % Dr. Kaden Diamond MD Work Phone: [facility] 06-17-2025 18:04-0400 Systolic blood pressure 132 mm[Hg] Dr. Kaden Diamond MD Work Phone: [facility] 06-17-2025 17:24-0400 Body height 175.[address] Kaden Diamond MD Work Phone: [facility] 06-17-2025 17:24-0400 Body mass index (BMI) [Ratio] 29.7 kg/m2 Dr. Kaden Diamond MD Work Phone: [facility] 06-17-2025 17:24-0400 Body weight 91.[address] Kaden Diamond MD Work Phone: [facility] 06-14-2025 15:16-0400 Body height 175.3 cm Karl Nolasco MD Work Phone: [facility] 06-14-2025 15:16-0400 Body mass index (BMI) [Ratio] 28.65 kg/m2 Karl Nolasco MD Work Phone: [facility] 06-14-2025 15:16-0400 Body weight 88 kg Karl Nolasco MD Work Phone: [facility] 06-14-2025 15:16-0400 Diastolic blood pressure 79 mm[Hg] Karl Nolasco MD Work Phone: [facility] 06-14-2025 15:16-0400 Heart rate 61 /min Karl Nolasco MD Work Phone: [facility] 06-14-2025 15:16-0400 Systolic blood pressure 126 mm[Hg] Karl Nolasco MD Work Phone: [facility] 05-16-2025 14:45-0400 Body height 175.3 cm Charissa Corley PA-C Work Phone: [facility] [employer] 05-16-2025 14:45-0400 Body mass index (BMI) [Ratio] 28.65 kg/m2 Charissa Mitchellal PA-C Work Phone: [facility] [employer] 05-16-2025 14:45-0400 Body weight 88 kg Charissa Mitchellal PA-C Work Phone: [facility] [employer] 05-09-2025 14:33-0400 Body height 175.3 cm Charissa Mitchellal PA-C Work Phone: [facility] [employer] 05-09-2025 14:33-0400 Body mass index (BMI) [Ratio] 28.65 kg/m2 Charissa Kendallreal PA-C Work Phone: [facility] [employer] 05-09-2025 14:33-0400 Body weight 88 kg Charissa Mitchellal PA-C Work Phone: [facility] [employer] 05-02-2025 10:30-0400 Body temperature 97.2 [degF] Karl Nolasco MD Work Phone: [facility] [employer] 05-02-2025 10:30-0400 Diastolic blood pressure 70 mm[Hg] Karl Nolasco MD Work Phone: [facility] [employer] 05-02-2025 10:30-0400 Heart rate 68 /min Karl Nolasco MD Work Phone: [facility] [employer] 05-02-2025 10:30-0400 Respiratory rate 24 /min Karl Nolasco MD Work Phone: [facility] [employer] 05-02-2025 10:30-0400 SaO2% (BldA) [Mass fraction] 93 % Karl Nolasco MD Work Phone: [facility] [employer] 05-02-2025 10:30-0400 Systolic blood pressure 113 mm[Hg] Kral Nolasco MD Work Phone: [facility] [employer] 05-02-2025 06:33-0400 Body mass index (BMI) [Ratio] 28.65 kg/m2 Karl Nolasco MD Work Phone: [facility] 05-02-2025 06:33-0400 Body weight 88 kg Karl Nolasco MD Work Phone: [facility] 06-24-2024 11:16-0400 Body height 175.3 cm Kaden Diamond MD Work Phone: [facility] 06-24-2024 11:16-0400 Body mass index (BMI) [Ratio] 28.62 kg/m2 Kaden Diamond MD Work Phone: [facility] 06-24-2024 11:16-0400 Body temperature 98.1 [degF] Kaden Diamond MD Work Phone: [facility] 06-24-2024 11:16-0400 Body weight 87.9 kg Kaden Diamond MD Work Phone: [facility] 06-24-2024 11:16-0400 Diastolic blood pressure 72 mm[Hg] Kaden Diamond MD Work Phone: [facility] 06-24-2024 11:16-0400 Heart rate 70 /min Kaden Diamond MD Work Phone: [facility] 06-24-2024 11:16-0400 Respiratory rate 12 /min Kaden Diamond MD Work Phone: [facility] 06-24-2024 11:16-0400 SaO2% (BldA) [Mass fraction] 97 % Kaden Diamond MD Work Phone: [facility] 06-24-2024 11:16-0400 Systolic blood pressure 130 mm[Hg] Kaden Diamond MD Work Phone: [facility] 05-16-2024 19:01-0400 Body temperature 98.01 [degF] Kaden Diamond MD Work Phone: [facility] 05-16-2024 19:01-0400 Body weight 84 kg Kaden Diamond MD Work Phone: [facility] 05-16-2024 19:01-0400 Diastolic blood pressure 68 mm[Hg] Kaden Diamond MD Work Phone: [facility] 05-16-2024 19:01-0400 Heart rate 68 /min Kaden Diamond MD Work Phone: [facility] 05-16-2024 19:01-0400 Respiratory rate 16 /min Kaden Diamond MD Work Phone: [facility] 05-16-2024 19:01-0400 Systolic blood pressure 98 mm[Hg] Kaden Diamond MD Work Phone: [facility] 05-09-2024 14:11-0400 Body height 177.8 cm Karl Nolasco MD Work Phone: [facility] 05-09-2024 14:11-0400 Body mass index (BMI) [Ratio] 26.83 kg/m2 Karl Nolasco MD Work Phone: [facility] 05-09-2024 14:11-0400 Body weight 84.82 kg Karl Nolasco MD Work Phone: [facility] 05-09-2024 14:11-0400 Diastolic blood pressure 70 mm[Hg] Karl Nolasco MD Work Phone: [facility] 05-09-2024 14:11-0400 Systolic blood pressure 110 mm[Hg] Karl Nolasco MD Work Phone: [facility] 04-12-2024 14:35-0400 Body temperature 98.6 [degF] Kaden Diamond MD Work Phone: [facility] 04-12-2024 14:35-0400 Body weight 87.45 kg Kaden Diamond MD Work Phone: [facility] 04-12-2024 14:35-0400 Diastolic blood pressure 72 mm[Hg] Kaden Diamond MD Work Phone: [facility] 04-12-2024 14:35-0400 Heart rate 68 /min Kaden Diamond MD Work Phone: [facility] 04-12-2024 14:35-0400 Respiratory rate 16 /min Kaden Diamond MD Work Phone: [facility] 04-12-2024 14:35-0400 Systolic blood pressure 104 mm[Hg] Kaden Diamond MD Work Phone: [facility] 12-10-2023 10:56-0400 Body height 175.[address] Kaden Diamond Work Phone: [facility] 12-10-2023 10:56-0400 Body mass index (BMI) [Ratio] 26.6 kg/m2 Dr. Kaden Diamond Work Phone: 5(995)566-079920 [place] [address] 12-10-2023 10:56-0400 Body temperature 97.8 [degF] Dr. Kaden Diamond Work Phone: 3(834)759-308620 [place] [address] 12-10-2023 10:56-0400 Body weight 81.[address] Kaden Diamond Work Phone: 1(258)765-183011 [place] [address] 12-10-2023 10:56-0400 Heart rate 75 /min Dr. Kaden Diamond Work Phone: 6(984)752-093411 [place] [address] 12-10-2023 10:56-0400 Respiratory rate 16 /min Dr. Kaden Diamond Work Phone: 4(769)914-696311 [place] [address] 12-10-2023 10:56-0400 SaO2% (BldA) [Mass fraction] 98 % Dr. Kaden Diamond Work Phone: [facility] 07-03-2023 12:00-0400 Body temperature 98.6 [degF] Dr. Kaden Diamond Work Phone: 2(389)303-232511 [place] [address] 07-03-2023 12:00-0400 Diastolic blood pressure 89 mm[Hg] Dr. Kaden Diamond Work Phone: 6(663)723-553111 [place] [address] 07-03-2023 12:00-0400 Heart rate 60 /min Dr. Kaden Diamond Work Phone: 3(241)519-985811 [place] [address] 07-03-2023 12:00-0400 Respiratory rate 16 /min Dr. Kaden Diamond Work Phone: [facility] 07-03-2023 12:00-0400 SaO2% (BldA) [Mass fraction] 94 % Dr. Kaden Diamond Work Phone: [facility] 07-03-2023 12:00-0400 Systolic blood pressure 139 mm[Hg] Dr. Kaden Diamond Work Phone: [facility] 12-15-2022 19:18-0400 Body temperature 97.3 [degF] Kaden Diamond MD Work Phone: [facility] 12-15-2022 19:18-0400 Body weight 91.17 kg Kaden Diamond MD Work Phone: [facility] 12-15-2022 19:18-0400 Diastolic blood pressure 70 mm[Hg] Kaden Diamond MD Work Phone: [facility] 12-15-2022 19:18-0400 Heart rate 56 /min Kaden Diamond MD Work Phone: [facility] 12-15-2022 19:18-0400 Respiratory rate 16 /min Kaden Diamond MD Work Phone: [facility] 12-15-2022 19:18-0400 Systolic blood pressure 116 mm[Hg] Kaden Diamond MD Work Phone: [facility] 11-24-2022 10:52-0500 Body temperature 98.2 [degF] Dr. Kaden Diamond Work Phone: [facility] 11-24-2022 10:52-0500 Diastolic blood pressure 78 mm[Hg] Dr. Kaden Diamond Work Phone: [facility] 11-24-2022 10:52-0500 Heart rate 67 /min Dr. Kaden Diamond Work Phone: [facility] 11-24-2022 10:52-0500 Respiratory rate 16 /min Dr. Kaden Diamond Work Phone: 5(259)320-103411 [place] [address] 11-24-2022 10:52-0500 SaO2% (BldA) [Mass fraction] 97 % Dr. Kaden Diamond Work Phone: 3(688)894-847611 [place] [address] 11-24-2022 10:52-0500 Systolic blood pressure 116 mm[Hg] Dr. Kaden Diamond Work Phone: 8(771)687-901120 [place] [address] 11-12-2022 10:56-0500 Body temperature 98.1 [degF] Dr. Kaden Diamond Work Phone: 5(753)670-983720 [place] [address] 11-12-2022 10:56-0500 Diastolic blood pressure 82 mm[Hg] Dr. Kaden Diamond Work Phone: 7(569)607-618220 [place] [address] 11-12-2022 10:56-0500 Heart rate 70 /min Dr. Kaden Diamond Work Phone: 9(060)863-652320 [place] [address] 11-12-2022 10:56-0500 Respiratory rate 14 /min Dr. Kaden Diamond Work Phone: 8(613)654-905420 [place] [address] 11-12-2022 10:56-0500 Systolic blood pressure 122 mm[Hg] Dr. Kaden Diamond Work Phone: 7(736)369-650920 [place] [address] 10-29-2022 11:10-0500 Body temperature 98 [degF] Dr. Kaden Diamond Work Phone: 1(358)011-901620 [place] [address] 10-29-2022 11:10-0500 Diastolic blood pressure 78 mm[Hg] Dr. Kaden Diamond Work Phone: 7(806)464-146420 [place] [address] 10-29-2022 11:10-0500 Heart rate 73 /min Dr. Kaden Diamond Work Phone: 5(100)927-727420 [place] [address] 10-29-2022 11:10-0500 Respiratory rate 14 /min Dr. Kaden Diamond Work Phone: 5(174)916-665320 [place] [address] 10-29-2022 11:10-0500 SaO2% (BldA) [Mass fraction] 98 % Dr. Kaden Diamond Work Phone: 7(252)796-409011 [place] [address] 10-29-2022 11:10-0500 Systolic blood pressure 128 mm[Hg] Dr. Kaden Diamond Work Phone: 1(726)716-947020 [place] [address] 10-22-2022 09:51-0500 Body temperature 98.1 [degF] Dr. Kaden Diamond Work Phone: 9(541)018-357620 [place] [address] 10-22-2022 09:51-0500 Diastolic blood pressure 76 mm[Hg] Dr. Kaden Diamond Work Phone: 3(961)852-066120 [place] [address] 10-22-2022 09:51-0500 Heart rate 79 /min Dr. Kaden Diamond Work Phone: 0(147)099-75[address] [place] [address] 10-22-2022 09:51-0500 Respiratory rate 14 /min Dr. Kaden Diamond Work Phone: 0(500)307-45[address] [place] [address] 10-22-2022 09:51-0500 SaO2% (BldA) [Mass fraction] 97 % Dr. Kaden Diamond Work Phone: 2(211)169-839920 [place] [address] 10-22-2022 09:51-0500 Systolic blood pressure 138 mm[Hg] Dr. Kaden Diamond Work Phone: 8(475)319-223720 [place] [address] 10-13-2022 17:59-0500 Body height 175.[address] Kaden Diamond Work Phone: 1(405)387-225220 [place] [address] 10-13-2022 17:59-0500 Body mass index (BMI) [Ratio] 28.3 kg/m2 Dr. Kaden Diamond Work Phone: 3(820)923-770320 [place] [address] 10-13-2022 17:59-0500 Body temperature 97 [degF] Dr. Kaden Diamond Work Phone: 1(257)351-675120 [place] [address] 10-13-2022 17:59-0500 Body weight 87.[address] Kaden Diamond Work Phone: 3(191)792-510320 [place] [address] 10-13-2022 17:59-0500 Diastolic blood pressure 77 mm[Hg] Dr. Kaden Diamond Work Phone: 1(528)400-501011 [place] [address] 10-13-2022 17:59-0500 Heart rate 84 /min Dr. Kaden Diamond Work Phone: 2(872)472-800820 [place] [address] 10-13-2022 17:59-0500 Respiratory rate 18 /min Dr. Kaden Diamond Work Phone: 9(838)289-774320 [place] [address] 10-13-2022 17:59-0500 SaO2% (BldA) [Mass fraction] 95 % Dr. Kaden Diamond Work Phone: 7(942)348-863820 [place] [address] 10-13-2022 17:59-0500 Systolic blood pressure 130 mm[Hg] Dr. Kaden Diamond Work Phone: 2(462)438-309720 [place] [address] 08-28-2022 14:42-0500 Body temperature 98 [degF] Dr. Kaden Diamond Work Phone: 9(718)212-026620 [place] [address] 08-28-2022 14:42-0500 Diastolic blood pressure 80 mm[Hg] Dr. Kaden Diamond Work Phone: 9(660)952-303720 [place] [address] 08-28-2022 14:42-0500 Heart rate 81 /min Dr. Kaden Diamond Work Phone: 4(932)607-406920 [place] [address] 08-28-2022 14:42-0500 Respiratory rate 16 /min Dr. Kaden Diamond Work Phone: 1(340)703-795220 [place] [address] 08-28-2022 14:42-0500 SaO2% (BldA) [Mass fraction] 97 % Dr. Kaden Diamond Work Phone: 4(995)341-218920 [place] [address] 08-28-2022 14:42-0500 Systolic blood pressure 138 mm[Hg] Dr. Kaden Diamond Work Phone: 6(721)797-329811 [place] [address] 06-11-2022 13:33-0400 Body temperature 97.5 [degF] Jessica Vegas APRN.CNP Work Phone: 3(879)589-434149 [place] [address] 06-11-2022 13:33-0400 Body weight 86.18 kg Jessica Older VAULT SERVICE MECHANIC.RESIDENTIAL NURSE Work Phone: [facility] 06-11-2022 13:33-0400 Diastolic blood pressure 78 mm[Hg] Jessica Older VAULT SERVICE MECHANIC.RESIDENTIAL NURSE Work Phone: [facility] 06-11-2022 13:33-0400 Heart rate 64 /min Jessica Older VAULT SERVICE MECHANIC.RESIDENTIAL NURSE Work Phone: [facility] 06-11-2022 13:33-0400 Respiratory rate 12 /min Jessica Older VAULT SERVICE MECHANIC.RESIDENTIAL NURSE Work Phone: [facility] 06-11-2022 13:33-0400 Systolic blood pressure 116 mm[Hg] Jessica Older VAULT SERVICE MECHANIC.RESIDENTIAL NURSE Work Phone: [facility] Encounters Encounter Date Encounter Type Care Provider Facility Start: 06-29-[address] Facility:[facility] Start: 06-17-2025 End: 06-17-2025 Emergency department patient visit Dr. Travis Pike DO -Emergency Department Work Phone: Start: 06-15-[address] Angelica Diamond MD Work Phone: -Occupational Therapy Work Phone: Start: 06-14-2025 End: 06-14-2025 Postop follow up visit related to original px Karl Nolasco MD Work Phone: [facility] Comment on above: Traumatic rupture of radial collateral ligament (Primary Dx); S/P ligament repair Start: 06-14-2025 End: 06-14-2025 ambulatory KARL NOLASCO [facility] Start: 05-26-2025 End: 05-26-[address] Kaden Diamond MD Work Phone: -[facility] [place] Start: 05-26-2025 End: 05-26-[address] Catherine Preciado MD -[facility] [place] Work Phone: Start: 05-26-2025 End: 05-26-2025 ambulatory Kaden Diamond Facility:[facility] Start: 05-16-2025 End: 05-16-2025 Postop follow up visit related to original px Charissa Mitchelldanisha SOLARES-Robert Work Phone: [facility] Comment on above: Traumatic rupture of radial collateral ligament (Primary Dx); S/P ligament repair Start: 05-16-2025 End: 05-16-2025 ambulatory CHARISSA CORLEY [facility] Start: 05-09-2025 End: 05-09-2025 Postop follow up visit related to original px Charissa Mitchelldanisha SOLARES-C Work Phone: [facility] Comment on above: Traumatic rupture of radial collateral ligament (Primary Dx); S/P ligament repair Start: 05-09-2025 End: 05-09-2025 ambulatory Karl Nolasco MD Work Phone: [facility] [employer] [facility] Comment on above: Traumatic rupture of radial collateral ligament Start: 05-02-2025 End: 05-02-2025 Anesthesia consultation No Anesthesiologist - Lucinda/Brian BARROSO Work Phone: [facility] Start: 05-02-2025 End: 05-02-2025 ambulatory KARL NOLASCO [facility] Start: 05-02-2025 End: 05-02-2025 Subsequent hospital visit by physician Karl Nolasco MD Work Phone: [facility] Comment on above: S/P ligament repair (Primary Dx) Start: 04-18-2025 End: 04-18-2025 ambulatory KADEN DIAMOND [facility] Start: 03-27-2025 End: 03-27-[address] Kaden Diamond MD Work Phone: -[facility] [place] Start: 03-27-2025 End: 03-27-[address] Catherine Preciado MD -[facility] [place] Work Phone: Start: 03-27-2025 End: 03-27-2025 ambulatory Kaden Diamond Facility:[facility] Start: 12-29-2024 End: 12-29-[address] Kaden Diamond MD Work Phone: [facility] Work Phone: Start: 12-29-2024 End: 12-29-[address] Catherine Preciado MD -Laboratory, [place] Work Phone: Start: 12-29-2024 End: 12-29-2024 ambulatory Kaden Diamond Facility:[facility] Start: 10-05-2024 End: 10-05-[address] Catherine Preciado MD -Laboratory, [place] Work Phone: Start: 10-05-2024 End: 10-05-2024 ambulatory Catherine Preciado Facility:[facility] Start: 07-26-2024 End: 07-26-2024 ambulatory Bridger Justice PA-C Work Phone: [facility] Start: 07-26-2024 End: 08-09-2024 Telephone encounter Karl Nolasco MD Work Phone: [facility] Comment on above: Surgery Scheduling ( 11/01 @ 8am [facility] (pt choice for date)) Surgery Scheduling ( 05/02 @ 8am [facility] (pt choice for date)) Start: 07-15-2024 End: 07-15-2024 ambulatory Kaden Diamond Facility:[facility] Start: 06-27-2024 End: 06-30-2024 Telephone encounter Kaden Diamond MD Work Phone: [facility] [place] Comment on above: Patient Update; Jess ent Question Start: 06-24-2024 End: 06-24-2024 ambulatory KADEN DIAMOND Facility:[facility] Start: 06-24-2024 End: 06-24-2024 Patient encounter procedure Kaden Diamond MD Work Phone: [facility] [place] Comment on above: Routine medical exam (Primary Dx); Need for influenza vaccination; Screening for depression; Encounter for screening examination for other mental health and behavioral disorders; Clostridium difficile colitis; Psoriatic arthritis (HCC); Mild intermittent asthma with acute exacerbation; Need for vaccination Start: 06-24-2024 End: 06-24-2024 Patient encounter status Kaden Diamond MD Work Phone: [facility] Start: 06-07-2024 End: 06-07-2024 Telephone encounter Kaden Diamond MD Work Phone: [facility] [place] Comment on above: Patient Update Start: 05-27-2024 End: 05-27-2024 ambulatory KADEN DIAMOND Facility:[facility] Start: 05-27-2024 End: 05-27-2024 Subsequent hospital visit by physician [facility] Comment on above: Abdominal pain, lowe r [R10.30] Start: 05-21-2024 End: 05-21-2024 Telephone encounter Kaden Diamond MD Work Phone: [facility] [place] Comment on above: Results Start: 05-20-2024 End: 05-20-2024 Orders Only Kaden Diamond MD Work Phone: [facility] [place] Comment on above: Clostridium difficil e colitis (Primary Dx) Start: 05-18-2024 End: 05-18-2024 Orders Only Kaden Diamond MD Work Phone: [facility] [place] Comment on above: Abdominal pain, lowe r (Primary Dx); Diarrhea, unspecified type Start: 05-17-2024 End: 05-17-2024 ambulatory KADEN DIAMOND Facility:[facility] Start: 05-16-2024 End: 05-16-2024 ambulatory KADEN DIAOMND Facility:[facility] Start: 05-16-2024 End: 05-16-2024 Patient encounter procedure Kaden Diamond MD Work Phone: [facility] [place] Comment on above: Diarrhea, unspecifie d type (Primary Dx); Abdominal pain, lower; Urinary hesitancy Start: 05-09-2024 End: 05-09-2024 Office outpatient new 30 minutes Karl Nolasco MD Work Phone: [facility] Comment on above: Traumatic rupture of radial collateral ligament Start: 04-12-2024 End: 04-12-2024 ambulatory KADEN DIAMOND Facility:[facility] Start: 04-12-2024 End: 04-12-2024 Patient encounter procedure Kaden Diamond MD Work Phone: [facility] [place] Comment on above: Visit for suture rem oval (Primary Dx); Laceration of right index finger without foreign body with damage to nail, subsequent encounter; Open nondisplaced fracture of distal phalanx of right index finger with routine healing, subsequent encounter; Psoriatic arthritis (HCC); Screening for lipid disorders Start: 12-10-2023 End: 12-10-[address] Kaden Diamond Work Phone: [facility] Work Phone: Start: 12-10-2023 End: 12-10-[address] Kaden Diamond Work Phone: [facility] Work Phone: Start: 11-06-2023 End: 11-06-2023 ambulatory [facility] Work Phone: Start: 11-06-2023 End: 11-06-2023 Patient encounter procedure [facility] Work Phone: Start: 08-07-2023 End: 08-07-[address] Kaden Diamond Work Phone: [facility] Work Phone: Start: 08-07-2023 End: 08-07-[address] Kaden Diamond Work Phone: [facility] Work Phone: Start: 07-03-2023 End: 07-03-[address] Kaden Diamond Work Phone: [facility] Work Phone: Start: 05-15-2023 End: 05-15-2023 ambulatory [facility] Work Phone: Start: 05-15-2023 End: 05-15-2023 Patient encounter procedure [facility] Work Phone: Start: 02-12-2023 End: 02-12-[address] Kaden Diamond Work Phone: [facility] Work Phone: Start: 02-12-2023 End: 02-12-[address] Kaden Diamond Work Phone: [facility] Start: 01-09-2023 End: 01-09-[address] Kaden Diamond Work Phone: [facility] Start: 12-15-2022 End: 12-15-2022 Patient encounter procedure Kaden Diamond MD Work Phone: [facility] [place] Comment on above: Rhinosinusitis (Prim saba Dx); Mild intermittent asthma with acute exacerbation Start: 11-24-2022 End: 11-24-[address] Kaden Diamond Work Phone: [facility] Start: 11-12-2022 End: 11-12-[address] Kaden Diamond Work Phone: [facility] Work Phone: Start: 11-12-2022 End: 11-12-[address] Kaden Diamond Work Phone: [facility] Start: 11-05-2022 End: 11-05-[address] Kaden Diamond Work Phone: [facility] Work Phone: Start: 11-05-2022 End: 11-05-[address] [facility] Start: 11-05-2022 End: 11-05-[address] Kaden Diamond Work Phone: [facility] Start: 10-29-2022 End: 10-29-[address] Kaden Diamond Work Phone: [facility] Start: 10-22-2022 End: 10-22-[address] Kaden Diamond Work Phone: [facility] Start: 10-13-2022 End: 10-13-2022 Emergency department patient visit Dr. Kaden Diamond Work Phone: [facility] Start: 08-28-2022 End: 08-28-[address] Kaden Diamond Work Phone: [facility] Start: 08-19-2022 Non-patient / Non-visit Dr. Shameka Diamond Work Phone: [facility] Start: 08-19-2022 End: 08-19-[address] Kaden Diamond Work Phone: [facility] Work Phone: Start: 08-19-2022 End: 08-19-[address] Kaden Diamond Work Phone: [facility] Start: 08-15-2022 End: 08-15-2022 ambulatory [facility] Work Phone: Start: 08-15-2022 End: 08-15-2022 Patient encounter procedure [facility] [place] Start: 08-06-2022 End: 08-06-2022 ambulatory [facility] Work Phone: Start: 08-06-2022 End: 08-06-2022 Patient encounter procedure [facility] Start: 06-11-2022 End: 06-11-2022 Subsequent hospital visit by physician Daniele [facility] Work Phone: Radiology Comment on above: Rib pain on right si de [R07.81] Start: 06-11-2022 End: 06-11-2022 Patient encounter procedure Jessica Vegas APRN.CNP Work Phone: [facility] [place] Comment on above: Rib pain on right si de (Primary Dx); Chronic cough; Need for influenza vaccination Start: 05-16-2022 End: 05-16-2022 Patient encounter procedure [facility] Start: 04-11-2022 End: 04-11-2022 Patient encounter procedure [facility] Start: 02-21-2022 End: 02-21-2022 Patient encounter procedure [facility] Start: 11-14-2021 End: 11-14-2021 Patient encounter procedure [facility] Start: 11-08-2021 End: 11-08-2021 Patient encounter procedure NEGRO PHILIP PA-C [facility] Procedures Date Procedure Procedure Detail Performing Clinician Start: 05-02-2025 [place] AN ELECTIVE SUPRAGLOTTIC AIRWAY Josie Williamson RN Start: 05-02-2025 Peripheral block anesthesia Edy Campbell APRN - MEMBERSHIP ADMINISTRATOR Work Phone: Start: 06-24-2024 Adult depression scr [...] ch minimum 3 views Jessica M Michelle VAULT SERVICE MECHANIC.RESIDENTIAL NURSE Work Phone: Start: 06-11-2022 INFLUENZA VACCINE QUADRIVALENT 6 MO - 64 YRS IM Jessica Older VAULT SERVICE MECHANIC.RESIDENTIAL NURSE Work Phone: Start: 11-23-2021 Adult depression scr eening assessment Jessica Older VAULT SERVICE MECHANIC.RESIDENTIAL NURSE Work Phone: Start: 04-23-2020 Colonoscopy Jessica Older VAULT SERVICE MECHANIC.RESIDENTIAL NURSE Work Phone: Start: 11-24-2019 Lipid 1996 panel - S ariel or Plasma Kaden Diamond MD Work Phone: Investigation of transfusion reaction Dr. Kaden Diamond Work Phone: Microbial culture, routine D flavio Diamond Work Phone: Plan of Treatment Date Care Activity Detail Author Start: 12-05-2042 RSV Immunization for Adults (1 - 1-dose 75+ series) RSV Immunization for Adults (1 - 1-dose 75+ series) [facility] Start: 04-05-2034 DTaP/Tdap/Td Vaccines (4 - Td or Tdap) DTaP/Tdap/Td Vaccines (4 - Td or Tdap) [facility] Start: 04-05-2034 Urine microalbumin profile DTaP,Tdap,Td Vaccine (4 - Td or Tdap) [facility] Start: 10-13-2032 Urine microalbumin profile DTAP,TDAP,TD (3 - Td or Tdap) [facility] Start: 05-17-2029 Lipid panel Lipid Screening [facility] Start: 05-17-2029 Prostate specific antigen measurement Prostate Cancer Screening Discussion [facility] Start: 2027 RSV Immunization aged 60 or older (1 - 1-dose 60+ series) RSV Immunization aged 60 or older (1 - 1-dose 60+ series) [facility] Start: 05-17-2027 Diabetes Screening Diabetes Screening [facility] Start: 06-24-2025 Annual PCP Team Chronic Disease Visit Annual PCP Team Chronic Disease Visit [facility] Start: 06-24-2025 Anxiety Screening Anxiety Screening [facility] Start: 06-24-2025 Depression Screening Depression Screening [facility] Start: 06-17-2025 [facility] Start: 06-17-2025 End: 06-17-2025 Emergency department patient visit Departed Emergency -Emergency Department Work Phone: Start: 06-15-2025 Registered Recurring Registered Recurring -Occupational Therapy Work Phone: Start: 06-14-2025 End: 06-14-2025 Patient encounter procedure 06/14/2025 3:10 PM EDT Office Visit [facility] [address] [place] [address] Karl Nolasco MD [address] [facility] [address] [place] [address] [facility] Start: 05-22-2025 COVID-19 Vaccine ( season) COVID-19 Vaccine ( season) [facility] Start: 05-22-2025 Influenza vaccination Influenza Vaccine (#1) [facility] Start: 05-16-2025 End: 05-16-2025 Patient encounter procedure 05/16/2025 2:30 PM EDT Office Visit [facility] [employer] [address] [place] [address] Charissa Corley PA-C [address] [facility] [address] [place] [address] [facility] Start: 05-16-2025 Annual PCP Team Chronic Disease Visit Annual PCP Team Chronic Disease Visit [facility] Start: 05-09-2025 End: 05-09-2025 ambulatory 05/09/2025 4:00 PM EDT Evaluation [facility] [address] [place] [phone] Karl Nolasco MD [address] [facility] [address] [place] [address] Vikas Tran OT [facility] Start: 05-09-2025 End: 05-09-2025 Patient encounter procedure 05/09/2025 2:45 PM EDT Office Visit [facility] [address] [place] [phone] Charissa Corley PA-C [address] [facility] [address] [place], [place] [id number] [facility] Start: 05-08-2025 End: 05-08-2025 ambulatory [facility] Therapy at [facility] Start: 05-08-2025 End: 05-08-2025 Patient encounter procedure 05/08/2025 11:00 AM EDT Office Visit [facility] - [place] [address] [facility] [address] [place] [phone] Bridger Justice PA-C [address] [facility] [address] [place] [address] [facility] Orthoped[facility] - [place] Start: 05-02-2025 End: 05-02-2025 Admission to same day surgery center [facility] MA[facility] Comment on above: LEFT INDEX FINGER METACARPOPHALANGEAL RA DIAL COLLATERAL LIGAMENT RECONSTRUCTION USING PALMARIS LONGUS AUTOGRAFT [01932 (CPT )] Start: 05-02-2025 End: 05-02-2025 Anesthesia consultation 05/02/2025 7:30 AM EDT Anesthesia Event [facility] MA[facility] [place] [address] [place] [phone] Kavitha Kimble, VAULT SERVICE MECHANIC - MEMBERSHIP ADMINISTRATOR [address] [place] [address] [facility] MA[facility] OR Start: 05-02-2025 Subsequent hospital visit by physician [facility] MA[facility] OR Start: 05-02-2025 End: 05-02-2025 Rcnstj coltrl ligm mtcarphlngl 1 w/tdn/fscal grf [facility] Operating Room Start: 04-23-2025 Colonoscopy COLONOSCOPY [facility] Start: 04-23-2025 COLORECTAL CANCER SCREENING COLORECTAL CANCER SCREENING [facility] Start: 04-23-2025 Screening for malignant neoplasm of colon [facility] Start: 04-18-2025 End: 04-18-2025 Admission to establishment 04/18/2025 10:30 AM EDT Pre-Admission Testing [facility] Pre-Admit Testing [address] [place] [phone] [facility] Start: 04-12-2025 Annual PCP Team Chronic Disease Visit Annual PCP Team Chronic Disease Visit [facility] Start: 11-23-2024 Lipid panel Lipid Screening [facility] Start: 11-23-2024 LIPID SCREEN LIPID SCREEN [facility] Start: 11-23-2024 PROSTATE CANCER SCREENING DISCUSSION PROSTATE CANCER SCREENING DISCUSSION [facility] Start: 11-23-2024 Prostate specific antigen measurement Prostate Cancer Screening Discussion [facility] Start: 11-07-2024 End: 11-07-2024 ambulatory 11/07/2024 2:30 PM EST Evaluation [facility] at [facility] [address] [facility] [address] [place] [phone] Linda Reeves OT [facility] Start: 11-07-2024 End: 11-07-2024 Patient encounter procedure 11/07/2024 2:00 PM EST Office Visit [facility] - [place] [address] [facility] [address] [place] [phone] Bridger Justice PA-C [address] [facility] [address] [place] [address] [facility] Orthoped[facility] Start: 11-01-2024 End: 11-01-2024 Admission to same day surgery center 11/01/2024 8:00 AM EST - 11/01/2024 10:00 AM EST Surgery [facility] MA[facility] OR [address] [place] [phone] Karl Nolasco MD [address] [facility] [address] [place], [place] [phone] LEFT INDEX FINGER METACARPOPHALANGEAL RADIAL COLLATERAL LIGAMENT RECONSTRUCTION USING PALMARIS LONGUS AUTOGRAFT [67259 (CPT )] [facility] MA[facility] OR Comment on above: LEFT INDEX FINGER METACARPOPHALANGEAL RA DIAL COLLATERAL LIGAMENT RECONSTRUCTION USING PALMARIS LONGUS AUTOGRAFT [51770 (CPT )] Start: 11-01-2024 End: 11-01-2024 Rcnstj coltrl ligm mtcarphlngl 1 w/tdn/fscal grf RECONSTRUCTION OF COLLATERAL LIGAMENT METACARPOPHALANGEAL JOINT WITH TENDON OR FASCIAL GRAFT Traumatic rupture of unspecified radial collateral ligament, initial encounter 11/01/2024 8:00 AM EST [facility] Operating Room Start: 11-01-2024 Subsequent hospital visit by physician 11/01/2024 8:00 AM EST Hospital Encounter [facility] MA[facility] OR [address] [place] [phone] Karl Nolasco MD [address] [facility] [address] [place], [place] [phone] [facility] MAIN OR Start: 10-14-2024 End: 10-14-2024 Admission to establishment 10/14/2024 10:00 AM EST Pre-Admission Testing [facility] [address] [place] [address] [facility] Start: 06-24-2024 End: 06-24-2024 Patient encounter procedure 06/24/2024 11:00 AM EDT Office Visit [facility] [address] [place] [address] Kaden Diamond MD [address] [facility] [address] Physical w/fasting lab prior [facility] Comment on above: Physical w/fasting lab prior Start: 05-27-2024 End: 05-27-2024 Patient encounter procedure Cat Scan Comment on above: Abdominal pain, lower [R10.30] Start: 05-24-2024 End: 08-23-2024 Basic metabolic 2000 panel - Serum or Plasma BASIC METABOLIC PANEL Lab Routine Psoriatic arthritis (HCC) Expected: 05/24/2024, Expires: 08/23/2024 [facility] Comment on above: Expected: 05/24/2024, Expires: 4 Start: 05-24-2024 End: 08-23-2024 CBC panel - Blood by Automated count COMPLETE BLOOD COUNT Lab Routine Psoriatic arthritis (HCC) Expected: 05/24/2024, Expires: 08/23/2024 [facility] Work Phone: Comment on above: Expected: 05/24/2024, Expires: 4 Start: 05-24-2024 End: 08-23-2024 Lipid 1996 panel - Serum or Plasma LIPID PANEL BASIC Lab Routine Screening for lipid disorders Expected: 05/24/2024, Expires: 08/23/2024 [facility] Comment on above: Expected: 05/24/2024, Expires: Start: 05-22-2024 Covid-19 Vaccine ( season) Covid-19 Vaccine ( season) [facility] Start: 05-22-2024 Covid-19 Vaccine ( season) Covid-19 Vaccine ( season) [facility] Start: 05-22-2024 Influenza vaccination [facility] Start: 05-17-2024 End: 08-16-2024 C reactive protein [Mass/volume] in Serum or Plasma C-REACTIVE PROTEIN Lab Routine Abdominal pain, lower Expected: 05/17/2024, Expires: 08/16/2024 [facility] Comment on above: Expected: 05/17/2024, Expires: 4 Start: 05-17-2024 End: 08-16-2024 Comprehensive metabolic 2000 panel - Serum or Plasma COMPREHENSIVE METABOLIC PANEL Lab Routine Diarrhea, unspecified type Abdominal pain, lower Expected: 05/17/2024, Expires: 08/16/2024 [facility] Comment on above: Expected: 05/17/2024, Expires: 4 Start: 05-17-2024 End: 08-16-2024 Erythrocyte sedimentation rate SEDIMENTATION RATE, WESTERGREN Lab Routine Abdominal pain, lower Expected: 05/17/2024, Expires: 08/16/2024 [facility] Comment on above: Expected: 05/17/2024, Expires: Start: 05-17-2024 End: 08-16-2024 PSA/PROSTATE SPECIFIC ANTIGEN SCREENING PSA/PROSTATE SPECIFIC ANTIGEN SCREENING Lab Routine Urinary hesitancy Expected: 05/17/2024, Expires: 08/16/2024 [facility] Work Phone: Comment on above: Expected: 05/17/2024, Expires: 4 Start: 12-16-2023 ANNUAL PCP TEAM CHRONIC DISEASE VISIT ANNUAL PCP TEAM CHRONIC DISEASE VISIT [facility] Start: 09-21-2023 Behavioral Health Screening Behavioral Health Screening [facility] Start: 06-11-2023 ANNUAL PCP TEAM CHRONIC DISEASE VISIT ANNUAL PCP TEAM CHRONIC DISEASE VISIT [facility] Start: 05-22-2023 Covid-19 Vaccine () Covid-19 Vaccine () [facility] Start: 05-12-2023 Urine microalbumin profile DTAP,TDAP,TD (2 - Td or Tdap) [facility] Start: 11-23-2022 Adult depression screening assessment DEPRESSION SCREENING [facility] Start: 10-13-2022 Smpl repair scalp/neck/ax/genit/trunk 2.6-7.5cm RPR S/N/AX/GEN/TRNK2.6-7.5CM [facility] Start: 09-29-2022 DIABETES SCREEN DIABETES SCREEN [facility] Start: 09-29-2022 Diabetes Screening Diabetes Screening [facility] Start: 09-21-2022 DEPRESSION ASSESSMENT DEPRESSION ASSESSMENT [facility] Start: 01-10-2022 COVID-19 VACCINE (5 - Booster for Moderna series) COVID-19 VACCINE (5 - Booster for Moderna series) [facility] Start: 11-06-2021 COVID-19 VACCINE (5 - Booster for Moderna series) COVID-19 VACCINE (5 - Booster for Moderna series) [facility] Start: 12-05-2017 Zoster Vaccines (1 of 2) Zoster Vaccines (1 of 2) [facility] Start: 12-05-2012 COLOGUARD (FIT-DNA) COLOGUARD (FIT-DNA) [facility] Start: 12-05-[address] COLONOGRAPHY [facility] Start: 12-05-2012 FECAL OCCULT BLOOD FECAL OCCULT BLOOD [facility] Start: 12-05-2012 Screening for malignant neoplasm of colon [facility] Start: 12-05-2012 SIGMOIDOSCOPY SIGMOIDOSCOPY [facility] Start: 12-05-1986 Hepatitis B Vaccine (1 of 3 - 19+ 3-dose series) Hepatitis B Vaccine (1 of 3 - 19+ 3-dose series) [facility] Start: 12-05-1986 Hepatitis B Vaccines (1 of 3 - 19+ 3-dose series) Hepatitis B Vaccines (1 of 3 - 19+ 3-dose series) [facility] Start: 12-05-1986 Pneumococcal Vaccine: 50+ Years (1 of 2 - PCV) Pneumococcal Vaccine: 50+ Years (1 of 2 - PCV) [facility] Start: 12-05-1986 SHINGRIX VACCINE (1 of 2) SHINGRIX VACCINE (1 of 2) [facility] Start: 12-05-1985 Anxiety Screening Anxiety Screening [facility] Start: 12-05-1985 Depression Screening Depression Screening [facility] Start: 12-05-1985 Diabetes mellitus screening Diabetes Screening [facility] Start: 12-05-1985 Hepatitis C screening Hepatitis C Screening [facility] Start: 12-05-1985 SPIROMETRY SPIROMETRY [facility] Start: 1979 Depression Screening Depression Screening [facility] Start: 12-05-1973 PNEUMOCOCCAL (1 - PCV) PNEUMOCOCCAL (1 - PCV) [facility] Start: 12-05-1973 Pneumococcal vaccination Pneumococcal Vaccine (1 of 2 - PCV) [facility] Start: 12-05-1973 Pneumococcal Vaccine: Pediatrics (0 to 5 Years) and At-Risk Patients (6 to 64 Years) (1 of 2 - PCV) Pneumococcal Vaccine: Pediatrics (0 to 5 Years) and At-Risk Patients (6 to 64 Years) (1 of 2 - PCV) [facility] Start: 12-05-1968 MMR Vaccines (1 of 1 - Standard series) MMR Vaccines (1 of 1 - Standard series) [facility] Start: 1967 HEPATITIS B (1 of 3 - 3-dose series) HEPATITIS B (1 of 3 - 3-dose series) [facility] Start: 1967 HIV screening HIV Screening [facility] Start: 1967 Lipid panel Lipid Panel [facility] Start: 1967 Screening for malignant neoplasm of colon [facility] Clostridioides diffi cile toxin genes [Presence] in Stool by ERIC with probe detection C. DIFFICILE PCR Lab Routine Diarrhea, unspecified type Ordered: 05/17/2024 [facility] Comment on above: Ordered: 05/17/2024 End: 06-17-2025 CT Abdomen and Pelvis W contrast IV CT ABD/PEL W IVCON Radiology Routine Abdominal pain, lower Diarrhea, unspecified type 1 Occurrences starting 05/18/2024 until 06/17/2025 [facility] Work Phone: Comment on above: 1 Occurrences starting 05/18/2024 until 06/17/2025 Patient Education ED Laceration Extremity [facility] Work Phone: Patient referral [facility] Work Phone: Immunizations Immunization Date Immunization Notes Care Provider Fa [facility] 06-24-2024 influenza, seasonal, injectable Kaden Diamond MD Work Phone: [facility] 06-24-2024 pneumococcal conjuga te (PCV20) vaccine, 20 valent (PREVNAR 20) Kaden Diamond MD Work Phone: [facility] 06-24-2024 pneumococcal Conjugate, unspecified formulation Kaden Diamond MD Work Phone: [facility] Work Phone: 06-24-2024 influenza virus vaccine, unspecified formulation Karl Nolasco MD Work Phone: [facility] 04-05-2024 tetanus toxoid, reduced diphtheria toxoid, and acellular pertussis vaccine, adsorbed Kaden Diamond MD Work Phone: [facility] 10-13-2022 tetanus toxoid, reduced diphtheria toxoid, and acellular pertussis vaccine, adsorbed Dr. Kaden Diamond Work Phone: [facility] 06-11-2022 influenza, injectabl e, quadrivalent, contains preservative Jessica Older VAULT SERVICE MECHANIC.RESIDENTIAL NURSE Work Phone: [facility] Work Phone: 06-11-2022 influenza virus vaccine, unspecified formulation Kaden Diamond MD Work Phone: [facility] 11-21-2020 COVID-19 original vaccine, full dose, monovalent (MODERNA) Jessica Older VAULT SERVICE MECHANIC.RESIDENTIAL NURSE Work Phone: [facility] Work Phone: 08-20-2020 Seasonal, quadrivalent, recombinant, injectable influenza vaccine, preservative free Kaden Diamond MD Work Phone: [facility] Work Phone: 05-12-2013 tetanus toxoid, reduced diphtheria toxoid, and acellular pertussis vaccine, adsorbed Jessica Older VAULT SERVICE MECHANIC.RESIDENTIAL NURSE Work Phone: [facility] Payers Date Payer Category Payer Self-pay [id number] 2022 [facility] Care - [facility] [id number] 2022 Unknown [id number] 2020 Unknown [id number] Unknown [id number] Unknown [id number] Unknown [id number] Unknown [id number] Unknown [id number] Unknown [id number] Unknown [id number] Unknown [id number] Unknown [id number] Unknown [id number] Social History Date Type Detail Facility Start: 08-10-2015 End: 12-10-2023 Tobacco smoking status GAIS Unknown if ever smoked [facility] Start: 1965 Sex Assigned At Male [facility] Start: 05-12-2013 End: 06-17-2025 Tobacco smoking status NHIS Never smoked tobacco [facility] Work Phone: Start: 05-12-2013 End: 05-09-2024 Tobacco use and exposure Smokeless tobacco non-user [facility] Work Phone: Start: 06-11-2022 End: 06-14-2025 Alcohol intake Current drinker of alcohol (finding) [facility] Start: 11-23-2021 History SDOH Alcohol Frequency 2 [facility] Start: 11-23-2021 History SDOH Alcohol Std Drinks 1 [facility] Start: 11-23-2021 History SDOH Alcohol Comment occasional [facility] Start: 1965 Sex Assigned At Not on file [facility] Start: 11-23-2021 End: 06-14-2025 History of Social function [facility] Start: 11-23-2021 End: 06-14-2025 Alcohol Use Disorder Identification Test - Consumption [AUDIT-C] [facility] How often to you hav e a drink containing alcohol? Monthly or less [facility] How many standard dr inks containing alcohol do you have on a typical day? 1 or 2 [facility] How often do you hav e 6 or more drinks on 1 occasion? Less than monthly [facility] National Score (1-10 0), lower number is lower risk 36 [facility] Start: 05-09-2024 Alcoholic beverage intake Ex-drinker (finding) [facility] How often do you hav e 6 or more drinks on 1 occasion? Never [facility] Start: 04-21-2022 End: 12-30-2024 Sex Male (finding) [facility] Start: 04-18-2025 Alcohol Comment LESS THAN ONCE A MONTH 1-2 DRINKS [facility] Medical Equipment Procedure Code Equipment Code Equipment Origin al Text Equipment Identifier Dates Sys Implant Ib Forefoot Peek - [id number] Start: 05-02-2025 Clinical Notes 06-11-2022 to 06-17-2025 Note Date & Type Note Facility 06-17-2025 Discharge summary [facility] 06-17-2025 Discharge summary Note Date/Time June 17, 2025 5:58pm [facility] Medical Records Department [address] [place] [address] Emergency Department Summary 06/17/25 MR#: [id number] Acct: [id number] Name: HOLLIS MASCORRO Rep #:[id number] : [id number] 59 From: Travis Pike DO [...] they came here for further evaluation management. [facility] Medical History Laceration of left forearm URI [...] pain) Qty: 20 0RF Primary Care Provider: aKden Diamond Referrals: Kaden Diamond MD [Primary Care [...] return to theemergency department immediately Print Language: Frisian Disposition Disposition: Home, Self Care What to do if you have Problems For any increased pain, shortness of breath, bleeding, nausea or vomiting, chestpain, or any unexpected problems, contact your Primary Care Provider. Call [facility] ([phone]) or report to the closest Emergency Room. Call 911 if necessary. 06/17/251757 <Electronically signed by Travis Pike DO> Cosigner Signature (if applicable): CC: Dr. Kaden Diamond MD ~ Signed [facility] Work Phone: [phone] 704-152809-24-2025 History of Present illness Narrative* Karl Nolasco MD - 06/14/2025 3:10 PM EDT Images from the original note were not included. [facility] [address] [place] [address] Dept: [phone] Dept 06/14/2025 Chief Complaint Patient presents with [...] Nolasco MD Hand and Upper Extremity Surgery [facility] Department of Orthopaedics and Sports Medicine 06/14/2025 at 3:40 PM (Please note that portions of this note may have been completed with a voice recognition program. Efforts were made to edit the dictations but occasionally words are mis-transcribed.) documented in this [facility]08-26-2025 History of Present illness Narrative* Charissa Corley [...] occasionally words are mis-transcribed.) documented in this [facility]08-19-2025 History of Present illness Narrative* Vikas Tran, OT - 05/09/2025 4:00 PM EDT Images from the original note were not included. [facility] THERAPY AT [address] [place] [address] Dept: [phone] Dept OCCUPATIONAL THERAPY Orthotic Only Evaluation Patient [...] of formal therapy. Reason for Referral: Custom eoeaawxu-wlbh-nctjo MP extension with IP joints free to move-confirmed by Dr. Nolasco. Treatment Guidelines: Protocol in op note. Paper copy given to patient is a will continue with a hand specialist closer to their home. 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 Precautions/Red Flags: Gentle MP AROM initiated [...] move. Splinting: Fabrication Splinting Education: Fitting, Don[place], [place], Wear schedule, Precautions Splinting Comments: Patient satisfied [...] 37 Vikas Tran OT documented in this [facility]08-19-2025 History of Present illness Narrative* Charissa Rajiv [...] like to attend formal therapy closer to [place] where he lives. He is accompanied today by his . 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 He states [...] occasionally words are mis-transcribed.) documented in this [facility]08-12-2025 History and physical note* Edy Campbell APRN - MEMBERSHIP ADMINISTRATOR - 05/02/2025 11:08 AM EDT [facility] Comprehensive PreSurgical History and Physical Name: [...] Use Smoking Status Never Smokeless Tobacco Never [facility] [employer] Work Phone: 1(731) 229-163308-12-2025 History and physical note* Edy CampbellCHRISTOPHER CRNA - 05/02/2025 11:08 AM EDT [facility] Comprehensive PreSurgical History and Physical Name: [...] Justice PA-C - 05/02/2025 7:25 AM EDT [facility] Pre-Surgical History and Physical Name: Hollis Mascorro : 1965 (Age-59 y.o.) Date of Service: Pt seen/examined on 05/02/2025 Chief Complaint: 59 y.o. male who we are asked to see/evaluate Hollis Mascorro for pre-procedure evaluation prior to Procedure Information Date/Time: 05/02/25 95 Procedure: LEFT INDEX FINGER METACARPOPHALANGEAL RADIAL COLLATERAL LIGAMENT RECONSTRUCTION USING PALMARIS LONGUS AUTOGRAFT (Left: Hand) - 120 minutes total Location: [address] Operating Room Surgeons: Karl Nolasco MD [...] 05/02/2025 9:07 AM EDT documented in this [facility]08-12-2025 [facility] Comprehensive PreSurgical History and Physical Name: [...] Tobacco Use Smoking Status Never Smokeless Tobacco [facility]08-12-2025 Miscellaneous Notes* Perioperative Nursing Note - [...] from OR via cart, spont. Resp. With MEMBERSHIP ADMINISTRATOR in attendance. Placed on monitor. Monitor alarms on in PACU * Op Note - Karl Nolasco MD - 05/02/2025 7:29 AM EDT [facility] [address] [address] Dept: [phone] Loc: [phone] Operative Report Patient Name: Hollis Mascorro Date [...] patient's ASA was verified by the nurse waitress and the anesthesia staff. Fire risk was [...] joint was augustina irrigated normal saline. The crow RCL tissue was repaired in an imbricated [...] 05/02/2025 , 9:25 AM documented in this [facility]08-12-2025 Nurse Note* Perioperative Nursing Note - Angela Monique RN - 05/02/2025 11:00 AM EDT Pt dressed with little assist-Tolerated activity well. States he is ready to go home. [id number] Nurse Note* Perioperative Nursing Note - Angela Monique RN - 05/02/2025 10:49 AM EDT Homegoing isntrucitons given to pt and spouse verbally and written. Both verbalize understanding, no questions at this time. Pt set up on side of cart- denies any dizziness,pain,nausea. [facility] [id number] Note* Anesthesia Discharge Note - Josie Williamson RN - 05/02/2025 10:17 AM EDT Patient: Hollis Mascorro Procedure Summary Date: 05/02/25 Room / Location: [address] Operating Room Anesthesia Start: 728 Anesthesia [...] met. Cosigned by Edy Campbell APRN - MEMBERSHIP ADMINISTRATOR at 05/02/2025 1:05 PM EDT [facility] [id number] NotePatient: Hollis Mascorro Procedure Summary Date: 05/02/25 Room / Location: [address] Operating Room Anesthesia Start: 728 Anesthesia [...] discharged once all PACU criteria has been met.[facility]08-12-2025 Nurse Note* Perioperative Nursing Note - Angela Monique RN - 05/02/2025 10:17 AM EDT Pt awake and drinking soda-tolerating well. [facility] [id number] Miscellaneous Notes* Anesthesia Discharge Note - Josie Williamson RN - 05/02/2025 10:17 AM EDT Patient: Hollis Mascorro Procedure Summary Date: 05/02/25 Room / Location: [address] Operating Room Anesthesia Start: 728 Anesthesia [...] 05/02/2025 1:05 PM EDT documented in this [facility]08-12-2025 Anesthesiology Postoperative evaluation and management note* Anesthesia Postprocedure Evaluation - Josie Williamson RN - 05/02/2025 10:15 AM EDT Patient: Hollis Mascorro Procedure Summary Date: 05/02/25 Room / Location: [address] Operating Room Anesthesia Start: 728 Anesthesia [...] Plascencia CRNA at 05/02/2025 1:05 PM EDT [facility] [id number] NotePatient: Hollis Mascorro Procedure Summary Date: 05/02/25 Room / Location: [address] Operating Room Anesthesia Start: 728 Anesthesia [...] Allowed opportunity for questions and acknowledgement of understanding.[facility]08-12-2025 Surgical operation note* Anesthesia Postprocedure Evaluation - Josie Williamson RN - 05/02/2025 10:15 AM EDT Patient: Hollis Mascorro Procedure Summary Date: 05/02/25 Room / Location: [address] Operating Room Anesthesia Start: 728 Anesthesia [...] and post-op pain management Staffing Performed: ZULEYMA Resident/MEMBERSHIP ADMINISTRATOR: CHRISTOPHER Plascencia CRNA, RN Preanesthetic Checklist Completed: [...] - IntraVENous 2 mg - 05/02/2025 7:12:00 YCmbnRKGTVfgrjc-bidtfxuccle-twlkowklunl (TAP) syringe - Injection 25 mL - [...] (Left: Hand) - 120 minutes total Location: [address] Operating Room Surgeons: Karl Nolasco MD [...] history on file. documented in this encounterSumma [id number] Nurse Note* Perioperative Nursing Note - Angela Monique RN - 05/02/2025 10:07 AM EDT Pt opens eyes and answers questions appropriately. [facility] [id number] Procedure anesthesia Narrative* Procedure Summary Procedure Name [...] D5W (Cleocin) IVPB 600 mg 600 mg fmzGEMHElredv-bnmknioqqve-pqvyudcvrku (T AP) syringe 25 mL midazolam (Versed) [...] Josie Williamson RN documented in this encounter [facility] [id number] Nurse Note* Perioperative Nursing Note - Yessi Barragan RN - 05/02/2025 9:26 AM EDT Pt received from OR via cart, spont. Resp. With MEMBERSHIP ADMINISTRATOR in attendance. Placed on monitor. Monitor alarms on in PACU [facility] [employer] Work Phone: 1(499) 613-851808-12-2025 Anesthesiology procedure note* Anesthesia Procedure Notes - CHRISTOPHER Plascencia CRNA - 05/02/2025 8:05 AM EDT Associated Order(s): Peripheral Block Peripheral Block Time Out: 05/02/2025 7:11 AM Patient location during procedure: Procedural Start time: 05/02/2025 7:12 AM End time: 05/02/2025 7:18 AM Reason for block: at surgeon's request and post-op pain management Staffing Performed: ZULEYMA Resident/MEMBERSHIP ADMINISTRATOR: CHRISTOPHER Plascencia CRNA, RN Preanesthetic Checklist Completed: [...] - IntraVENous 2 mg - 05/02/2025 7:12:00 CIvghDVEGMhvrlx-qvrslokrunw-dhjgzejcbzl (TAP) syringe - Injection 25 mL - 05/02/2025 7:12:00 AM [employer] Phone: 1(876) 662-835808-12-2025 NotePeripheral Block Time Out: 05/02/2025 7:11 AM Patient location during procedure: Procedural Start time: 05/02/2025 7:12 AM End time: 05/02/2025 7:18 AM Reason for block: at surgeon's request and post-op pain management Staffing Performed: ZULEYMA Resident/MEMBERSHIP ADMINISTRATOR: CHRISTOPHER Plascencia CRNA, RN Preanesthetic Checklist Completed: [...] - IntraVENous 2 mg - 05/02/2025 7:12:00 QEzqdQTHMChczab-eylyydbbdqh-trgttnwacnf (TAP) syringe - Injection 25 mL - 05/02/2025 7:12:00 [facility]08-12-2025 Anesthesiology procedure note* Anesthesia Procedure Notes - [...] Plascencia CRNA at 05/02/2025 8:07 AM EDT [id number] NoteAirway Date/Time: 05/02/2025 7:34 AM Reason: scheduled General Information and Staff Patient location during procedure: Procedural Performed: SRNA Patient Condition Indications for airway management: anesthesia Patient position: sniffing Sedation level: Asleep Final Airway Details Preoxygenated: yes Final airway type: supraglottic airway Successful airway: Igel Size: 4 Number of attempts at approach: [address] [place], [place] 5396508-12-2025 Procedure note* Op Note - Karl Nolasco MD - 05/02/2025 7:29 AM EDT [facility] OR [address] [address] Dept: [phone] Loc: [phone] Operative Report Patient Name: Hollis Mascorro Date [...] patient's ASA was verified by the nurse waitress and the anesthesia staff. Fire risk was [...] joint was augustina irrigated normal saline. 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 Okay to discontinue sling once the nerve block has worn off and motor function as well as sensation has returned to your arm. * Attachments The following attachments cannot be sent through Care Everywhere. * General Anesthesia Discharge Instructions (Frisian) documented in this [facility]08-12-2025 History and physical note* Bridger Justice PA-C - 05/02/2025 7:25 AM EDT [facility] Pre-Surgical History and Physical Name: Hollis Mascorro : 1965 (Age-59 y.o.) Date of Service: Pt seen/examined on 05/02/2025 Chief Complaint: 59 y.o. male who we are asked to see/evaluate Hollis Mascorro for pre-procedure evaluation prior to Procedure Information Date/Time: 05/02/25 0730 Procedure: LEFT INDEX FINGER METACARPOPHALANGEAL RADIAL COLLATERAL LIGAMENT RECONSTRUCTION USING PALMARIS LONGUS AUTOGRAFT (Left: Hand) - 120 minutes total Location: [address] Operating Room Surgeons: Karl Nolasco MD [...] aerosol powder Inhale. Yes Historical Provider, fexofenadine (Archell) 180 MG tablet Take 180 mg by [...] Nolasco MD at 05/02/2025 9:07 AM EDT [id number] [facility] Pre-Surgical History and Physical Name: Hollis Mascorro : 1965 (Age-59 y.o.) Date of Service: Pt seen/examined on 05/02/2025 Chief Complaint: 59 y.o. male who we are asked to see/evaluate Hollis Mascorro for pre-procedure evaluation prior to Procedure Information Date/Time: 05/02/25729 Procedure: LEFT INDEX FINGER METACARPOPHALANGEAL RADIAL COLLATERAL LIGAMENT RECONSTRUCTION USING PALMARIS LONGUS AUTOGRAFT (Left: Hand) - 120 minutes total Location: [address] Operating Room Surgeons: Karl Nolasco MD [...] Tobacco Use Smoking Status Never Smokeless Tobacco [facility]08-12-2025 Anesthesiology Preoperative evaluation and management note* Anesthesia Preprocedure Evaluation - Edy Campbell APRN - MEMBERSHIP ADMINISTRATOR - 05/02/2025 7:03 AM EDT Patient: Hollis Mascorro Procedure Information Date/Time: 05/02/25729 Procedure: LEFT INDEX FINGER METACARPOPHALANGEAL RADIAL COLLATERAL LIGAMENT RECONSTRUCTION USING PALMARIS LONGUS AUTOGRAFT (Left: Hand) - 120 minutes total Location: [address] Operating Room Surgeons: Karl Nolasco MD [...] Requests [1] No family history on file. [facility]08-12-2025 NotePatient: Hollis Subha Procedure Information Date/Time: 05/02/2530 Procedure: LEFT INDEX FINGER METACARPOPHALANGEAL RADIAL COLLATERAL LIGAMENT RECONSTRUCTION USING PALMARIS LONGUS AUTOGRAFT (Left: Hand) - 120 minutes total Location: [address] Operating Room Surgeons: Karl Nolasco MD [...] Equipment Requests [1] No family history on file.[facility]08-07-2025 Note* Addendum Note - Carolyn Rodriguez ATC - 04/27/2025 1:43 PM EDTAddended by: CAROLYN RODRIGUEZ on: 04/27/2025 01:43 PM Modules accepted: Orders [facility] [id number] Note* Addendum Note - Carolyn Rodriguez ATC - 04/27/2025 1:43 PM EDTAddended by: CAROLYN RODRIGUEZ on: 04/27/2025 01:43 PM Modules accepted: Orders [place] [id number] Miscellaneous Notes* Addendum Note - Carolyn Rodriguez [...] Details Calendar done Clearance no Case # [id number] Authorization Jess Armendariz [id number] clinicals PAT Day/Time done PAT Orders to Jain done Splint yes IPO 05/08 @ 11a [facility] SURGERY SCHEDULING SLIP Patient: Hollis Mascorro Date of : 1965 Date of Surgery: Next available Day of Surgery: [facility]: [place] Duration: 2hrs Type: Outpatient PAT: Yes - tele Med Clearance: No Anesthesia: MAC Block: Regional Position: Supine Table: Stretcher Arm Board: Roll-up arm table Radiology: Small C-Arm CPT Code: 26228 Consent: Left index finger MCP radial collateral ligament reconstruction using palmaris longus autograft FollowUp: Any P.A. in 5-7 days XRays: No OT Splint needed at first PO appointment: Yes - hand based radial gutter Special Requests Hand tray Arthrex 3mm tenodesis screws Krunal needles Looped 4-0 fiberwire documented in this encounterSUniversity Hospitals Portage Medical [id number] Telephone encounter Note* Telephone Encounter - Carolyn Rodriguez ATC - 04/27/2025 1:42 PM EDT Custom splint order placed [facility] [id number] Telephone encounter Note* Telephone Encounter - Yessi Don - 04/27/2025 1:39 PM EDT Images from the original note were not included. Can you place another order for a custom splint? Please hand based radial gutter [facility] [id number] Telephone encounter Note* Telephone Encounter - Bridger Justice PA-C - 07/26/2024 11:29 AM EST PAT and Splint Order Signed. [facility] [id number] Miscellaneous Notes* Telephone Encounter - Bridger Justice [...] Details Calendar done Clearance no Case # [id number] Authorization 09/19 unable to start auth due to anthem hold up PAT Day/Time PAT Orders to Bridger mir Splint yes IPO 11/07 @ 2pm @ [facility] (per pt choice) [facility] SURGERY SCHEDULING SLIP Patient: Hollis Mascorro Date of : 1965 Date of Surgery: Next available Day of Surgery: [facility] [place] Duration: 2hrs Type: Outpatient PAT: Yes - tele Med Clearance: No Anesthesia: MAC Block: Regional Position: Supine Table: Stretcher Arm Board: Roll-up arm table Radiology: Small C-Arm CPT Code: 88281 Consent: Left index finger MCP radial collateral ligament reconstruction using palmaris longus autograft FollowUp: Any P.A. in 5-7 days XRays: No OT Splint needed at first PO appointment: Yes - hand based radial gutter Special Requests Hand tray Arthrex 3mm tenodesis screws Krunal needles Looped 4-0 fiberwire documented in this [place] [address]-05-2024 Miscellaneous Notes* Telephone Encounter - Bridger Justice [...] Details Calendar done Clearance no Case # [id number] Authorization PAT Day/Time PAT Orders to Jain done Splint yes IPO 05/08 @ 11a [facility] SURGERY SCHEDULING SLIP Patient: Hollis Mascorro Date of : 1965 Date of Surgery: Next available Day of Surgery: [facility] [place] Duration: 2hrs Type: Outpatient PAT: Yes - tele Med Clearance: No Anesthesia: MAC Block: Regional Position: Supine Table: Stretcher Arm Board: Roll-up arm table Radiology: Small C-Arm CPT Code: 37555 Consent: Left index finger MCP radial collateral ligament reconstruction using palmaris longus autograft FollowUp: Any P.A. in 5-7 days XRays: No OT Splint needed at first PO appointment: Yes - hand based radial gutter Special Requests Hand tray Arthrex 3mm tenodesis screws Krunal needles Looped 4-0 fiberwire documented in this [facility]11-05-2024 Miscellaneous Notes* Telephone Encounter - Bridger Justice [...] Details Calendar done Clearance no Case # [id number] Authorization Jess harris PAT Day/Time PAT Orders to Bridger mir Splint yes IPO 05/08 @ 11a [facility] SURGERY SCHEDULING SLIP Patient: Hollis Mascorro Date of : 1965 Date of Surgery: Next available Day of Surgery: [facility] [place] Duration: 2hrs Type: Outpatient PAT: Yes - tele Med Clearance: No Anesthesia: MAC Block: Regional Position: Supine Table: Stretcher Arm Board: Roll-up arm table Radiology: Small C-Arm CPT Code: 26377 Consent: Left index finger MCP radial collateral ligament reconstruction using palmaris longus autograft FollowUp: Any P.A. in 5-7 days XRays: No OT Splint needed at first PO appointment: Yes - hand based radial gutter Special Requests Hand tray Arthrex 3mm tenodesis screws Krunal needles Looped 4-0 fiberwire documented in this [facility]11-05-2024 Miscellaneous Notes* Telephone Encounter - Bridger Justice [...] Details Calendar done Clearance no Case # [id number] Authorization Jess Armendariz [id number] clinicals PAT Day/Time done PAT Orders to Jain done Splint yes IPO 05/08 @ 11a [facility] SURGERY SCHEDULING SLIP Patient: Hollis Mascorro Date of : 1965 Date of Surgery: Next available Day of Surgery: [facility] [place] Duration: 2hrs Type: Outpatient PAT: Yes - tele Med Clearance: No Anesthesia: MAC Block: Regional Position: Supine Table: Stretcher Arm Board: Roll-up arm table Radiology: Small C-Arm CPT Code: 08192 Consent: Left index finger MCP radial collateral ligament reconstruction using palmaris longus autograft FollowUp: Any P.A. in 5-7 days XRays: No OT Splint needed at first PO appointment: Yes - hand based radial gutter Special Requests Hand tray Arthrex 3mm tenodesis screws Krunal needles Looped 4-0 fiberwire documented in this [facility]11-05-2024 Miscellaneous Notes* Telephone Encounter - Bridegr Justice PA-C - 07/26/2024 11:29 AM EST [...] Details Calendar done Clearance no Case # [id number] Authorization Jess Armendariz [id number] clinicals PAT Day/Time done PAT Orders to Jain done Splint yes IPO 05/08 @ 11a [facility] SURGERY SCHEDULING SLIP Patient: Hollis Mascorro Date of : 1965 Date of Surgery: Next available Day of Surgery: [facility] [place] Duration: 2hrs Type: Outpatient PAT: Yes - tele Med Clearance: No Anesthesia: MAC Block: Regional Position: Supine Table: Stretcher Arm Board: Roll-up arm table Radiology: Small C-Arm CPT Code: 58130 Consent: Left index finger MCP radial collateral ligament reconstruction using palmaris longus autograft FollowUp: Any P.A. in 5-7 days XRays: No OT Splint needed at first PO appointment: Yes - hand based radial gutter Special Requests Hand tray Arthrex 3mm tenodesis screws Krunal needles Looped 4-0 fiberwire documented in this [facility]11-05-2024 Telephone encounter Note* Telephone Encounter - Yessi [...] Details Calendar done Clearance no Case # [id number] Authorization Jess Armendariz [id number] clinicals PAT Day/Time done PAT Orders to Jain done Splint yes IPO 05/08 @ 11a [facility] SURGERY SCHEDULING SLIP Patient: Hollis Mascorro Date of : 1965 Date of Surgery: Next available Day of Surgery: [facility] [place] Duration: 2hrs Type: Outpatient PAT: Yes - tele Med Clearance: No Anesthesia: MAC Block: Regional Position: Supine Table: Stretcher Arm Board: Roll-up arm table Radiology: Small C-Arm CPT Code: 31520 Consent: Left index finger MCP radial collateral ligament reconstruction using palmaris longus autograft FollowUp: Any P.A. in 5-7 days XRays: No OT Splint needed at first PO appointment: Yes - hand based radial gutter Special Requests Hand tray Arthrex 3mm tenodesis screws Krunal needles Looped 4-0 fiberwire [facility] OhioFutpof03-10-3792 Telephone encounter Note* Telephone Encounter - Rajiv Alvarez RN - 06/30/2024 10:55 AM EDT Pt returned call and given provider's message below with verbalized understanding. Patient agreeable. [facility]10-10-2024 Miscellaneous Notes* Telephone Encounter - Rajiv Alvarez RN - 06/30/2024 10:55 AM EDT Pt returned call and given provider's message below with verbalized understanding. Patient agreeable. * Telephone Encounter - Mini Peña LPN [...] update. Patient reports he is eating 4 nicaraguan yogarts a day now, instead of taking [...] healthy diet and taking probiotic. Uses [facility]. Please advise patient. Thank you. documented in this encounterGrand [facility]10-[facility]-2024 Telephone encounter Note * Telephone Encounter - Mini Peña LPN - 06/30/2024 9:38 AM EDT Left message to call office. 06/30/2024 9:38 AM Mini Peña LPN [facility]10-09-2024 Telephone encounter Note* Telephone Encounter - Rajiv Alvarez RN - 06/29/2024 4:42 PM EDT Left vm for patient to return call to nurse for provider's message. [facility]10-09-2024 Telephone encounter Note* Telephone Encounter - Kaden Diamond MD - 06/29/2024 1:31 PM EDT Okay. There may be some irritable bowel for some time. Increase fiber. Return for liquid diarrhea. [facility]10-09-2024 Telephone encounter Note* Telephone Encounter - Rajiv Alvarez RN - 06/29/2024 12:55 PM EDT Phoned patient and asked for update. Patient reports he is eating 4 nicaraguan yogarts a day now, instead of taking probiotic pill. Color of stools is darker now, and more formed. Mucous is gone from stools now. Having less stools now, only 1 stool today. Still has a lot of gas. No fever, nausea, vomiting, or abdominal pain. [facility]10-09-2024 Telephone encounter Note* Telephone Encounter - Kaden Diamond MD - 06/29/2024 9:03 AM EDT Update on patient's condition/symptoms please. [facility]10-07-2024 Telephone encounter Note* Telephone Encounter - Judith Eason RN - 06/27/2024 4:34 PM EDT Patient calling Dr. Diamond for advise. 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 Last treatment ended 06/17/24. Reports symptoms are returning. Reports loose stools, gas and bloating. Denies fever, abdominal pain nausea or vomiting. Eating healthy diet and taking probiotic. Uses [facility]. Please advise patient. Thank you. [facility]10-04-2024 NoteHNO ID: [id number] Author: KADEN DIAMOND MD Service: ? Author Type: Physician Type: Progress Notes Filed: 06/24/2024 13:13 Note Text: This note was created using [employer]. Subjective Patient presents with: Yearly Exam Immunizations: [...] Levi Reyes, [facility]. Dr. Karl Nolasco, [facility] (hands) Dr. Robert Montoya, [facility], [...] collateral ligament of left index finger 12/09/2023 [facility], [facility] PAST SURGICAL HISTORY Procedure Laterality Date ANKLE LEFT OP SURGERY Left 07/2015 COLONOSCOPY FLX DX W/COLLJ SPEC WHEN PFRMD 04/23/2020 Colonoscopy TOTAL HIP REPLACEMENT Left 11/28/2021 FAMILY HISTORY Problem Relation Age of Onset Cancer Mother 67 lung cancer Hypertension Mother Arthritis Mother psoriatic GI Father diverticulitis Heart Father [place] @ 81 years COPD Father driscoll's lung [...] ICD9: 008.45, ICD10: A04 (more content not included)...[facility]10-04-2024 History of Present illness Narrative* Kaden Diamond [...] psoriatic arthritis and psoriasis. Dr. Levi Reyes, [facility]. Dr. Karl Nolasco, [facility] (hands) Dr. Robert Montoya, [facility], allergy. Review of Systems PAST MEDICAL HISTORY Diagnosis Date Chronic rhinitis 03/03/2006 Clostridium difficile colitis 05/20/2024 DJD (degenerative joint disease) of hip 05/12/2013 Dr. Moeller Mild intermittent asthma with acute exacerbation 10/21/2007 Osteoarthritis of hip 05/12/2013 Psoriasis 05/12/2013 Dr. Calloway Psoriatic arthritis (HCC) 09/21/2017 Dr. 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 Traumatic rupture of collateral ligament of left index finger 12/09/2023 [facility] PAST SURGICAL HISTORY Procedure Laterality Date ANKLE LEFT OP SURGERY Left 07/2015 COLONOSCOPY FLX DX W/COLLJ SPEC WHEN PFRMD 04/23/2020 Colonoscopy TOTAL HIP REPLACEMENT Left 11/28/2021 FAMILY HISTORY Problem Relation Age of Onset Cancer Mother 67 lung cancer Hypertension Mother Arthritis Mother psoriatic GI Father diverticulitis Heart Father [place] @ 81 years COPD Father driscoll's lung [...] 20) Kaden Diamond MD documented in [facility] encounter[facility] Telephone encounter Note * Telephone Encounter - Dena Jameson LPN - 06/07/2024 3:28 PM EDT Patient notified, verbalized understanding. Dena Jameson LPN [facility]09-17-2024 Miscellaneous Notes* Telephone Encounter - Dena Jameson [...] advise, Jess Lyman RN documented in this encounterGrand [facility] Telephone encounter Note * Telephone Encounter - Naomi Garcia APRN.CNS - 06/07/2024 3:19 PM EDT Appears this is the first recurrence. Repeat vancomycin x 10 days. Rx sent. He should let us know how he is doing following the treatment or if not improving while taking the treatment. [facility]09-17-2024 Telephone encounter Note* Telephone Encounter - Jess [...] Please review and advise, Jess Lyman RN [facility]09-06-2024 History of Present illness Narrative* Monique Mercado, [...] PATIENT PRESENTS WITH AN IMPLANTABLE OR ATTACHED BRUSH FINISHER: No ALLERGIES: Reviewed and unchanged CONTRAST ALLERGY: [...] 2024 TIME: 3:46 PM documented in this encounterGrand [facility]09-06-2024 NoteHNO ID: [id number] Author: MONIQUE MERCADO RT(R) Service: ? Author Type: Hairspring Adjuster Type: Progress Notes Filed: 05/27/2024 15:46 Note [...] PATIENT PRESENTS WITH AN IMPLANTABLE OR ATTACHED BRUSH FINISHER: No ALLERGIES: Reviewed and unchanged CONTRAST ALLERGY: [...] Mascorro DATE: May 27, 2024 TIME: 3:46 [facility]08-31-2024 Telephone encounter Note* Telephone Encounter - Emelina Black LPN - 05/21/2024 10:31 AM EDT Spoke with pt and information listed below given. Pt verbalizes understanding. Pt reports already starting to feel better. Emelina Black LPN [facility]08-31-2024 Miscellaneous Notes* Telephone Encounter - Emelina Black [...] day x 10 days. documented in this encounterGrand [facility]08-31-2024 Telephone encounter Note * Telephone Encounter - [...] mg 4x per day x 10 days. [facility]08-26-2024 Instructions* Patient Instructions* Kaden Diamond MD - 05/16/2024 7:50 PM EDT DO ALL LABS TOMORROW FASTING. NOTIFY LAB YOU ARE FASTING. documented in this encounterGrand [facility]08-26-2024 NoteHNO ID: [id number] Author: KADEN DIAMOND MD Service: ? Author Type: Physician Type: Progress Notes Filed: 05/17/2024 07:28 Note Text: This note was created using citibuddiesriter. Subjective Patient presents with: Abdominal Pain Hollis [...] - PSA/PROSTATE SPECIFIC ANTIGEN SCREENING Kaden Diamond [facility]08-26-2024 History of Present illness Narrative* Kaden Diamond [...] SCREENING Kaden Diamond MD documented in this encounterGrand [facility]08-19-2024 History of Present illness Narrative* Karl Nolasco MD - 05/09/2024 2:30 PM EDT Images from the original note were not included. [facility] [address] [place] [address] [place] [id number] Dept: [phone] Dept Chief Complaint Patient presents with New Patient LEFT Index finger injury 11/2023; [facility] Referral HPI Hollis Mascorro is a [...] extremity MRI: Yes on disc- uploaded into [employer]. States that his index finger got [...] disc. MRI Left Hand no contrast 04/07/24- [facility] PROCEDURE none ASSESSMENT (S53.20XA) Traumatic rupture [...] Mascorro regarding the natural history, etiology, and chcf consequences of his condition. We discussed both [...] Nolasco MD Hand and Upper Extremity Surgery [facility] Department of Orthopaedics and Sports Medicine 05/09/2024 (Please note that portions of this note may have been completed with a voice recognition program. Efforts were made to edit the dictations but occasionally words are mis-transcribed.) documented in this [facility]08-19-2024 Instructions* Patient Instructions* Jessica Torres ATC - 05/09/2024 2:30 PM EDT - Outpatient surgery at [place]. - Call the office when you are ready to schedule. documented in this [facility]07-23-2024 NoteHNO ID: [id number] Author: KADEN DIAMOND MD Service: ? Author [...] up recommended in 2 months. Kaden Diamond [facility]07-23-2024 History of Present illness Narrative* Kaden Diamond [...] months. Kaden Diamond MD documented in this encounterGrand [facility]03-28-2023 History of Present illness Narrative* Kaden Diamond MD - 12/16/2022 10:37 AM EDT This note was created using [employer]. Subjective Patient presents with: Nasal Congestion Hollis [...] RELEASE,12HR Kaden Diamond MD documented in this encounterGrand [facility]01-23-[address] Encinas [facility] October 13, 2022 9:04pm Note Date/Time October 13, 2022 8 :03pm [facility] Medical Records Department [address] [place] [address] Emergency Department Summary 10/13/22 MR#: [id number] Acct: [id number] Name: HOLLIS MASCORRO Rep #:[id number] : [id number] 56 From: José Encinas MD PCP: Dr. Kaden Diamond MD Status:R EG ER Location: ED HPI History of Present Illness Chief Complaint: Laceration Narrative Narrative: 56-year-old male who denies significant past medical history, [id number], presents with laceration to his left forearm [...] last 10 years but is not sure. [facility] Medical History Acute pharyngitis, unspecified Arthritis Knee [...] your Primary Care Provider. Call [facility] ([phone]) or report to the closest Emergency Room. Call 911 if necessary. 10/13/222103 <Electronically signed by José Enicnas MD> Cosigner Signature (if applicable): CC: Dr. Kaden Diamond MD ~ Signed [facility] Work Phone: [phone] Instructions* Patient Instructions* Jessica Vegas APRN.CNP - 06/11/2022 1:46 PM EDT Over the counter medications: ibuprofen (Motrin , Advil ) or naproxen (Aleve ), take routinely for the next 3-4 days. Can also try topical medications such as Icy Hot, Biofreeze or Lidocaine. Non-medication measures: Ice for localized pain/tenderness and/or heat. Splinting with pillow when coughing or deep breathing documented in this encounterGrand [facility]09-21-2022 History of Present illness Narrative* Jessica Vegas [...] using inhalers and medications prescribed by his chicken handler and has follow-up scheduled with Dr. Linda on Thursday. Denies fever, chills, SOB, chest pain, palpitations, hemoptysis, wheezing. REVIEW OF SYSTEMS See [facility] PAST MEDICAL HISTORY Diagnosis Date Asthma [...] Mother psoriatic GI Father diverticulitis Heart Father [place] @ 81 years COPD Father driscoll's lung [...] asthma. Recommend starting Mucinex OTC. Follow-up with chicken handler as scheduled 3. Need for influenza vaccination - ICD9: V04.81, ICD10: Z23 - INFLUENZA VACCINE QUADRIVALENT 6 MO - 64 YRS IM Prescription instructions reviewed with patient as applicable. Potential red flag symptoms discussed with the patient. Reviewed appropriate action plan to take if red flag symptoms occur. Patient agreeable to treatment plan. Jessica Vegas APRN.CNP [facility] No data available for this section [facility] Evaluation noteNo assessment information available [facility] Work Phone: Evaluation note* Diagnosis Rib pain on right side- Primary Chest pain, unspecified Chronic cough Cough Need for influenza vaccination Need for prophylactic vaccination and inoculation against influenza documented in this encounter [facility] note* Diagnosis Onset Date Resolution Status Acute pharyngitis, unspecified acute URI (upper respiratory infection) acute [facility] Work Phone: Evaluation note* Diagnosis Onset Date Resolution Status Acute pharyngitis, unspecified acute URI (upper respiratory infection) acute Laceration of left forearm a cute [facility] Work Phone: Evaluation note* Diagnosis Rhinosinusitis- Primary Unspecified sinusitis (chronic) Mild intermittent asthma with acute exacerbation Unspecified asthma, with exacerbation documented in this encounter [facility] note* Diagnosis Onset Date Resolution Status Acute sinusitis acute [facility] Work Phone: Evaluation note* Diagnosis Onset Date Resolution Status Injury of left index finger acute Injury of left middle finger acute [facility] Work Phone: Evaluation note* Diagnosis Visit for suture removal- Primary Encounter for removal of sutures Laceration of right index finger without foreign body with damage to nail, subsequent encounter Open nondisplaced fracture of distal phalanx of right index finger with routine healing, subsequent encounter Psoriatic arthritis (HCC) Psoriatic arthropathy Screening for lipid disorders documented in this encounter [facility] note* Diagnosis Diarrhea, unspecified type- Primary Abdominal pain, lower Abdominal pain, other specified site Urinary hesitancy documented in this encounter [facility] note* Diagnosis Abdominal pain, lower- Primary Abdominal pain, other specified site Diarrhea, unspecified type documented in this encounter [facility] note* Diagnosis Traumatic rupture of radial collateral ligament documented in this encounter [facility] note* Diagnosis Clostridium difficile colitis- Primary Intestinal infection due to clostridium difficile documented in this encounter [facility] note* Diagnosis Abdominal pain, lower Abdominal pain, other specified site Diarrhea, unspecified type [facility] Diagnosis Clostridium difficile colitis Intestinal infection due to clostridium difficile [facility]* Diagnosis Rib pain on right side Chest pain, unspecified documented in this [facility]* Diagnosis Routine medical exam- Primary Routine [...] unspecified single disease documented in this [facility]* Diagnosis Traumatic rupture of radial collateral ligament- Primary Traumatic rupture of unspecified radial collateral ligament, initial encounter documented in this encounter [facility] note* Diagnosis Traumatic rupture of radial collateral ligament- Primary Traumatic rupture of unspecified radial collateral ligament, initial encounter documented in this encounter [facility] note* Diagnosis Traumatic rupture of radial collateral ligament- Primary Traumatic rupture of unspecified radial collateral ligament, initial encounter [facility] Diagnosis Traumatic rupture of radial collateral ligament- Primary Traumatic rupture of unspecified radial collateral ligament, initial encounter documented in this encounter [facility]* Diagnosis Traumatic rupture of radial collateral ligament- Primary Traumatic rupture of unspecified radial collateral ligament, initial encounter documented in this encounter [facility]* Diagnosis Traumatic rupture of radial collateral ligament- Primary Traumatic rupture of unspecified radial collateral ligament, initial encounter [facility] Diagnosis S/P ligament repair- Primary documented in this encounter [facility]* Diagnosis Traumatic rupture of radial collateral ligament- Primary S/P ligament repair documented in this encounter [facility]* Diagnosis Traumatic rupture of radial collateral ligament documented in this encounter [facility]* Diagnosis Traumatic rupture of radial collateral ligament- Primary S/P ligament repair [facility] Diagnosis Traumatic rupture of radial collateral ligament- Primary S/P ligament repair [facility] No data available for this section [facility] Discharge instructionsAdditional Instructions Keep the area dry and clean. Follow-up your doctor in outpatient setting. Return to worsening symptoms or any concerns. Do Dreft soaks as we discussed here. If you develop surrounding redness purulent drainage out of the wound your whole finger becomes very swollen red and painful you need to return to the emergency department immediatelyWFlower Hospital Work Phone: Reason for referral (narrative)* Diagnostic Procedure Only (Urgent) - Closed Specialty Diagnoses / Procedures Referred By Carole reece Referred To Contact XR IMAGING Diagnoses Rib pain on right side Procedures XR RIBS/CHEST 3V AP RIB/OBLS/CXR RIGHT RADEX RIBS UNI W/POSTEROANT CH MINIMUM 3 VIEWS Jessica Vegas APRN.CNP [address] [place] [address] Xr Imaging Referral ID Status Reason Start Date Expiration Date V isits Requested Visits Authorized [id number] Closed Auto-Generate d Referral 06/11/2022 07/11/2023 1 1 [facility] for referral (narrative)* Diagnostic Procedure Only (Urgent) - Closed Specialty Diagnoses / Procedures Referred By Contac t Referred To Contact XR IMAGING Diagnoses Rib pain on right side Procedures XR RIBS/CHEST 3V AP RIB/OBLS/CXR RIGHT RADEX RIBS UNI W/POSTEROANT CH MINIMUM 3 VIEWS Jessica Martinez, VAULT SERVICE MECHANIC.RESIDENTIAL NURSE [address] [place] [address] [place] [address] Referral ID Status Reason Start Date Expiration Date V isits Requested Visits Authorized [id number] Closed Auto-Generate d Referral 06/11/2022 07/11/2023 1 1 [facility] for referral (narrative)No reason for referral information availableWFlower Hospital Work Phone[facility]* Diagnostic Procedure Only (Urgent) - Closed Specialty Diagnoses / Procedures Referred By Contac t Referred To Contact XR IMAGING Diagnoses Rib pain on right side Procedures XR RIBS/CHEST 3V AP RIB/OBLS/CXR RIGHT RADEX RIBS UNI W/POSTEROANT CH MINIMUM 3 VIEWS Jessica Martinez APRN.RESIDENTIAL NURSE [address] [place] [address] [place] [address] Referral ID Status Reason Start Date Expiration Date V isits Requested Visits Authorized [id number] Closed Auto-Generate d Referral 06/11/2022 07/11/2023 1 1 [facility] for visit Narrative* Auth/Cert (Routine) Specialty Diagnoses / Procedures Referred By Contac t Referred To Contact Diagnoses Traumatic rupture of unspecified radial collateral ligament, initial encounter Procedures [place] RCNSTJ COLTRL LIGM MTCARPHLNGL 1 W/TDN/FSCAL GRF LEFT INDEX FINGER METACARPOPHALANGEAL RADIAL COLLATERAL LIGAMENT RECONSTRUCTION USING PALMARIS LONGUS AUTOGRAFT Karl Nolasco MD [address] [facility] [address] [place] [address] Phone: tel: fax: Referral ID Status Reason Start Date Expiration Date Visits Re quested Visits Authorized 07/26/2024 1 1 [facility] for visit Narrative* Therapy (Routine) - Authorized Specialty Diagnoses / Procedures Referred By Carole reece Referred To Contact Occupational Therapy Diagnoses Traumatic rupture of unspecified radial collateral ligament, subsequent encounter Procedures [place] OFFICE/OUTPATIENT [facility] 60 MINUTES Karl Nolasco MD [address] [facility] [address] [place] [address] Phone: tel: fax: [facility] Therapy at [address] [place] [address] Phone: tel: fax: Referral ID Status Reason Start Date Expiration Date Visits Requested Visits Authorized Authorized Eval and Treat 04/27/2025 04/27/2026 40 40 [facility] Summary Purpose Family History No Family History Records FoundNo Family History Records FoundNo Family History Records FoundNo Family History Records Found Advance Directives No Advanced Directives Records Found Advance Directive Response Recorded Date/ Time Living Will No October 13 7:57pm Power of Pilot Plant Research Technician No October 13, 2022 7:57pm Advance Directive Response Recorded Date/ Time Living Will No October 13 8:57pm Power of Pilot Plant Research Technician No October 13, 2022 8:57pm Date Activated Date Inactivated Comments 05/02/2025 6:05 AM 05/02/2025 1:16 PM Date Activated Date Inactivated Comments 05/02/2025 6:05 AM 05/02/2025 1:16 PM Advance Directive Response Recorded Date/ Time Do you have a Healthcare Power of Pilot Plant Research Technician? No June 17, 2025 5:29pm Chief Complaint [...] ABD & PELVIS W/CONTRAST Kaden Diamond MD [address] [place] [address] [place] [id number] Referral ID Status Reason Start Date Expiration Date Visits Requested Visits Authorized [id number] Authorized Auto-Generat ed Referral 05/18/2024 06/17/2025 1 1 Specialty Diagnoses / Procedures Referred By Carole reece Referred To Contact Ent - Otolaryngology Diagnoses Rhinosinusitis Procedures CONSULT TO ENT Kaden Diamond MD [address] [place] [address] Referral ID Status Reason Start Date Expiration Date Visits Requested Visits Authorized [id number] Ref Not Required PCP Requested Referral 12/15/2022 12/15/2023 1 1 Additional Source Comments (unrecognized sect ion and content) No Status Records FoundNo Status Records FoundNo Status Records FoundNo Status Records Found INFORMATION SOURCE (unrecogn ized section and content) DATE CREATED AUTHOR 11/13/2021 [facility] ([place]) DATE CREATED AUTHOR AUTHOR'S ORGANIZ ATION 07/02/2024 [facility] DATE CREATED AUTHOR AUTHOR'S ORGANIZ ATION 06/26/2025 [facility] DATE CREATED AUTHOR AUTHOR'S ORGANIZ ATION 07/01/2025 [facility] Goals (unrecognized section and content) Goals may be documented in a n alternate section Source Comments (unrecognize d section and content) In the event this informatio n is protected by the Federal Confidentiality of Alcohol and Drug Abuse Patient Records regulations: The Federal rules restrict any use of the information to criminally investigate or prosecute any alcohol or drug abuse patient.[facility] Hospital[facility] the event this information is protected by the Federal Confidentiality of Alcohol and Drug Abuse Patient Records regulations: The Federal rules restrict any use of the information to criminally investigate or prosecute any alcohol or drug abuse patient.[facility] HospitalIn the event this information is protected by the Federal Confidentiality of Alcohol and Drug Abuse Patient Records regulations: The Federal rules restrict any use of the information to criminally investigate or prosecute any alcohol or drug abuse patient.[facility] HospitalIn the event this information is protected by the Federal Confidentiality of Alcohol and Drug Abuse Patient Records regulations: The Federal rules restrict any use of the information to criminally investigate or prosecute any alcohol or drug abuse patient.[facility] HospitalIn the event this information is protected by the Federal Confidentiality of Alcohol and Drug Abuse Patient Records regulations: The Federal rules restrict any use of the information to criminally investigate or prosecute any alcohol or drug abuse patient.[facility] HospitalIn the event this information is protected by the Federal Confidentiality of Alcohol and Drug Abuse Patient Records regulations: The Federal rules restrict any use of the information to criminally investigate or prosecute any alcohol or drug abuse patient.[facility] HospitalIn the event this information is protected by the Federal Confidentiality of Alcohol and Drug Abuse Patient Records regulations: The Federal rules restrict any use of the information to criminally investigate or prosecute any alcohol or drug abuse patient.[facility] HospitalIn the event this information is protected by the Federal Confidentiality of Alcohol and Drug Abuse Patient Records regulations: The Federal rules restrict any use of the information to criminally investigate or prosecute any alcohol or drug abuse patient.[facility] HospitalIn the event this information is protected by the Federal Confidentiality of Alcohol and Drug Abuse Patient Records regulations: The Federal rules restrict any use of the information to criminally investigate or prosecute any alcohol or drug abuse patient.[facility] HospitalIn the event this information is protected by the Federal Confidentiality of Alcohol and Drug Abuse Patient Records regulations: The Federal rules restrict any use of the information to criminally investigate or prosecute any alcohol or drug abuse patient.[facility] HospitalIn the event this information is protected by the Federal Confidentiality of Alcohol and Drug Abuse Patient Records regulations: The Federal rules restrict any use of the information to criminally investigate or prosecute any alcohol or drug abuse patient.[facility] HospitalIn the event this information is protected by the Federal Confidentiality of Alcohol and Drug Abuse Patient Records regulations: The Federal rules restrict any use of the information to criminally investigate or prosecute any alcohol or drug abuse patient.[facility] HospitalIn the event this information is protected by the Federal Confidentiality of Alcohol and Drug Abuse Patient Records regulations: The Federal rules restrict any use of the information to criminally investigate or prosecute any alcohol or drug abuse patient.[facility] Reason for Visit (unrecogniz ed section and content) Reason Comments Radiology CT Specialty Diagnoses / Procedures Referred By Carole t Referred To Contact CT IMAGING Diagnoses Abdominal pain, lower Diarrhea, unspecified type Procedures CT ABD/PEL W IVCON CT ABD & PELVIS W/CONTRAST Kaden Diamond MD [address] [place] [address] [place] [id number] Referral ID Status Reason Start Date Expiration Date V isits Requested Visits Authorized [id number] Closed Auto-Generate d Referral 05/18/2024 06/17/2025 1 [...] Care Teams (unrecognized sec tion and content) Materials Clerk Relationship Specialty Start Date End Date Kaden Diamond MD [address] [place] [address] PCP - General Internal Medicine 04/03/14 Team [...] Kaden Diamond MD Primary Care Provider, Refer [facility] Provider Active Levi Wong PA, PA Attending Provider Active Team Status: Inactive Member Role Status Dates Dr. Kaden Diamond MD Primary Care Provider Active Dr. Bam Linda MD Attending Provider, [facility] Active Team Status: Inactive Member [...] Dr. Catherine Preciado MD Attending Provider Active Materials Clerk Relationship Specialty Start Date End Date Kaden Diamond MD [address] [place], [place] [id number] PCP - General Internal Medicine 04/03/14 Team [...] PA Attending Provider, Referring Provi pk Active Materials Clerk Relationship Specialty Start Date End Date Kaden Diamond MD [address] [place], [place] [id number] PCP - General Internal Medicine 04/03/14 Materials Clerk Relationship Specialty Start Date End Date Kaden Diamond MD [address] [place], [place] [id number] PCP - General Internal Medicine 04/03/14 Materials Clerk Relationship Specialty Start Date End Date Kaden Diamond MD [address] [place], [place] [id number] PCP - General Internal Medicine 04/03/14 Materials Clerk Relationship Specialty Start Date End Date Kaden Diamond [address] [place] [address] PCP - General Internal Medicine 05/09/24 Catherine Preciado MD [address] [facility] [address] [place] [address] Internal Medicine 05/09/24 Materials Clerk Relationship Specialty Start Date End Date Kaden Diamond MD [address] [place] [address] PCP - General Internal Medicine 04/03/14 Materials Clerk Relationship Specialty Start Date End Date Kaden Diamond MD [address] [place] [address] PCP - General Internal Medicine 04/03/14 Materials Clerk Relationship Specialty Start Date End Date Kaden Diamond MD [address] [place] [address] PCP - General Internal Medicine 04/03/14 Materials Clerk Relationship Specialty Start Date End Date Kaden Diamond MD [address] [place] [address] PCP - General Internal Medicine 04/03/14 Materials Clerk Relationship Specialty Start Date End Date Kaden Diamond MD [address] [place] [address] PCP - General Internal Medicine 04/03/14 Materials Clerk Relationship Specialty Start Date End Date Kaden Diamond MD [address] [place] [address] PCP - General Internal Medicine 04/03/14 Materials Clerk Relationship Specialty Start Date End Date Kaden Diamond [address] [place] [address] PCP - General Internal Medicine 05/09/24 Catherine Preciado MD [address] [facility] [address] [place] [phone] Internal Medicine 05/09/24 Materials Clerk Relationship Specialty Start Date End Date Kaden Diamond [address] [place] [address] PCP - General Internal Medicine 05/09/24 Catherine Preciado MD [address] [facility] [address] [place] [phone] Internal Medicine 05/09/24 Team Status: Inactive Member [...] March 27, 2025 End: March 27, 2025 Materials Clerk Relationship Specialty Start Date End Date Kaden Diamond [address] [place], [place] [id number] PCP - General Internal Medicine 05/09/24 Catherine Preciado MD [address] [facility] [address] [place] [phone] Internal Medicine 05/09/24 Materials Clerk Relationship Specialty Start Date End Date Kaden Diamond [address] [place], [place] [id number] PCP - General Internal Medicine 05/09/24 Catherine Preciado MD [address] [facility] [address] [place] [phone] Internal Medicine 05/09/24 Materials Clerk Relationship Specialty Start Date End Date Kaden Diamond [address] [place], [place] [id number] PCP - General Internal Medicine 05/09/24 Catherine Preciado MD [address] [facility] [address] [place] [phone] Internal Medicine 05/09/24 Materials Clerk Relationship Specialty Start Date End Date Kaden Diamond [address] [facility] MD [id number] PCP - General Internal Medicine 05/09/24 Catherine Preciado MD [address] [facility] [address] [place] [phone] Internal Medicine 05/09/24 Materials Clerk Relationship Specialty Start Date End Date Kaden Diamond [address] [id number] PCP - General Internal Medicine 05/09/24 Catherine Preciado MD [address] [facility] [address] [place] [phone] Internal Medicine 05/09/24 Materials Clerk Relationship Specialty Start Date End Date Kaden Diamond [address] [facility] [id number] PCP - General Internal Medicine 05/09/24 Catherine Preciado MD [address] [facility] [address] [place] [phone] Internal Medicine 05/09/24 Materials Clerk Relationship Specialty Start Date End Date Kaden Diamond [address] [facility] [id number] PCP - General Internal Medicine 05/09/24 Cahterine Preciado MD [address] [facility] [address] [place] [phone] Internal Medicine 05/09/24 Materials Clerk Relationship Specialty Start Date End Date Kaden Diamond [address] [place] [address] PCP - General Internal Medicine 05/09/24 Catherine Preciado MD [address] [facility] [address] [place] [phone] Internal Medicine 05/09/24 Team Status: Active Member [...] 17, 2025 Dr. Travis Pike DO Emergency Departwy nt Physician Active Start: June 17, 2025 End: June 17, 2025 Materials Clerk Relationship Specialty Start Date End Date Kaden Diamond [address] [place] [address] PCP - General Internal Medicine 05/09/24 Catherine Preciado MD [address] [facility] [address] [place] [phone] Internal Medicine 05/09/24 Team Status: Inactive Member [...] Stopped]) PRN Medication Order 04/30/2025 05/01/2025 05/02/2025 [id number] (TAP) syringe 30 mL 30 mL, [...] BE BASED ON THE PRIMARY CLINICAL RECORDS. [employer] [facility]. provides no warranty or guarantee of the accuracy or completeness of information in this document.
[2025-07-07 14:56] LABS: Hematocrit 47.4 % (40-54); Hemoglobin 16.3 g/dL (13.0-16.5); Immature Granulocytes Count 0.050 X10^3/uL (0.0-0.0); Mean Corp Hgb Conc 34.4 g/dL (32-36); Mean Corpuscular Volume 94.0 fL (80-94); Mean Platelet Vol. 10.3 fl (6.2-12.0); NRBC Flagged by Analyzer 0 % (0-5); Platelet Count 280 K/mm3 (150-450); RBC Distribution Width CV 13.3 % (11.6-14.6); RBC Distribution Width SD 45.6 fl (35.1-43.9); Red Blood Count 5.04 M/mm3 (4.6-6.2); White Blood Count 7.9 K/mm3 (4.4-11.0)
== END | disposition home or self-care (01) ==
LOC: MTLAB 12:56
PROVIDERS: PCP Internal Medicine; Referring Provider Internal Medicine Pulmonary Disease; Visit Provider Internal Medicine Pulmonary Disease
DX: R05.9 Cough, unspecified (principal); J45.50 Severe persistent asthma, uncomplicated
CPT/HCPCS: 36415; 85025

== ENCOUNTER 2025-07-27 13:00 | Outpatient (RCR) | payer BC, SELFPAY ==
--- NOTE | 2025-05-19 11:59 | HP.OTEVAL_ITS ---
Patient's Visit Information Visit Information Visit Information: RUFINA MASCORRO is a 59 year old M, referred to Occupational Therapy by CHARISSA ALBARRAN, with a diagnosis of left IF radial collateral lig. Date of Evaluation: 05/18/25 Occupational Therapist: Lissa Atkins, FERNANDO/Elisa, CHT Subjective Subjective: This 59 year old male was seen for OT eval with dx of traumatic rupture of radial collateral ligament of right IF. Pt states DOI was November 2023. 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 pt states following failed conservative therapy. pt did see Dr. Gaurav Pate for Left IF radial collateral ligament reconstruction using palmaris longus autograft- tenolysis of EDC and EIP of IF. pt is right handed. 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 pt arrives 2 weeks and 2 days s/p. ROM MP: right IF 0/85 left -5/15 PIP: right IF 0/93 left 0/40 DIP: right 0/60 left 0/35 Strength Airways Control Specialist: right 90# left NT Lateral Pinch: right 22# left NT Tripod Pinch: right 22# left NT Strength Comments: will test strength at later date Edema PIP: right IF 7.0 left 7.5 Sensation Sensation Comments: denies Quick DASH-Disab of Arm,Shoulder& Hand Quick DASH Score: 30.0000 Goals Goal:Daily scar massage when approriate: Yes Goal:ROM equal to unaffected hand: Yes Goal:Airways Control Specialist/Pinch strength at least 75% of unaffected hand: Yes Comment: will not initiate until week 8 or otherwise indicated by Goal:No pain with affected hand use: Yes Goal:PIP Circumferences equal to unaffected hand: Yes Goal:Full use of affected hand in daily activities including work: Yes Goal:Decrease scar hypersensitivity: Yes Rehabilitation General Assessment: pt arrives 2 weeks and 2 days s/p Left IF radial collateral ligament reconstruction using palmaris longus autograft- tenolysis of EDC and EIP of IF. pt is unbale to use left UE for ADLs and IADLs at this time due to newly healing structures. Pt demo need for skilled OT services 1-2x week for 8 weeks to return pt to functional use of left UE. Today therapist ed. pt on surgical guidelines, reviewed use of orthosis, and ed. pt on edema control. pt demo understanding and agree to POC. Rehabilitation Potential: Good Anticipated Interventions Anticipated Interventions: Early Active Motion, A/AAROM/PROM, Strengthening, Scar Care, Triggerpoint Release, Modalities, Orthoses, Joint Protection/Energy Conservation, Ergonomic Education, Education re assistive Equipment, Education re Diagnosis, Caregiver Training and Home Program Visit Plan Frequency: 1-2x /Week Duration: 2 Months General Plan: Phase 1: Day 0-14 splint all times phase 2 ( week 2-4) early mobilization Splint to custom orthosis (MP ext) allowing PIP and DIP motion- May begin protected AROM of MCP joint in flexion/extension only Night use: splint Shashi Loop Option: introduce wide shashi loop splint during the day to allow for controlled motion while preventing ulnar deviation Phase 3: Intermediate Recovery (week 5-8) daytime: continue shashi loop splint for protection during light activity nighttime: may contnue MP extension splint if instability or painful Goal gradual increase in MCP joint motion wile maintaining ligament integrity Phase 4 late recovery (week 8-12) D/C splint if MCP joint is stable and pain-free Functional splint: optional use of shashi loop during high-risk activity ( gripping/lifting) Therapy focus on strengthening and proprioception: TEXT: Thank you for the opportunity to evaluate your patient. For Medicare and Medicare HMO plans, please review the plan of care and approve it. It will need to be FAXED BACK to us at [phone] for Medicare purposes. Please let me know if there are questions or concerns regarding this plan of care. Physician Signature:__ Date:
--- NOTE | 2025-06-13 13:46 | OTREVAL_ITS ---
Re-Evaluation Intro: CHARISSA ALBARRAN, It has been my pleasure to treat RUFINA MASCORRO over the last 6 visits for left IF radial collateral lig. Please see the progress note below for an update on the occupational therapy plan of care! Subjective Subjective: pt arrives 6 weeks s/p from left IF radial collateral lig repair. Objective Objective/Function: L hand prior to tx: IF MP 0/75 PIP -5/85 DIP 65 L hand after tx: IF MP 83 PIP PIP 90 DIP 70 pt is using his hand IND with bathing/dressing pt is progressing well and will transition pt to light PRE still wearing shashi splint for protection around others and pets. Plan Plan Frequency: 1-2x /Week Duration: 2 Months Visits in this POC: 16 Plan: General Plan: Phase 1: Day 0-14 splint all times phase 2 ( week 2-4) early mobilization Splint to custom orthosis (MP ext) allowing PIP and DIP motion- May begin protected AROM of MCP joint in flexion/extension only Night use: splint Shashi Loop Option: introduce wide shashi loop splint during the day to allow for controlled motion while preventing ulnar deviation Phase 3: Intermediate Recovery (week 5-8) daytime: continue shashi loop splint for protection during light activity nighttime: may contnue MP extension splint if instability or painful Goal gradual increase in MCP joint motion wile maintaining ligament integrity Phase 4 late recovery (week 8-12) D/C splint if MCP joint is stable and pain-free Functional splint: optional use of shashi loop during high-risk activity ( gripping/lifting) Therapy focus on strengthening and proprioception: Goals Goals Patient Goals: Regain Mobility, Decrease Pain, Improve Fine Motor Skills, Use Hand/Wrist/Arm Normally Again and Be More Independent in ADLS Goal:Daily scar massage when approriate: Yes Goal:ROM equal to unaffected hand: Yes Goal:Home Sales Consultant/Pinch strength at least 75% of unaffected hand: Yes Goal:No pain with affected hand use: Yes Goal:PIP Circumferences equal to unaffected hand: Yes Goal:Full use of affected hand in daily activities including work: Yes Goal:Decrease scar hypersensitivity: Yes Anticipated Interventions Anticipated Interventions Anticipated Interventions: Early Active Motion, A/AAROM/PROM, Strengthening, Scar Care, Triggerpoint Release, Modalities, Orthoses, Joint Protection/Energy Conservation, Ergonomic Education, Education re assistive Equipment, Education re Diagnosis, Caregiver Training and Home Program Re-Evaluation Ending Re-evaluation ending: Please do not hesitate to contact me at [phone] by phone or if you have questions or concerns regarding this new plan of care! Sincerely, Lissa Atkins, OTR/L, CHT
--- NOTE | 2025-07-13 14:02 | OTREVAL_ITS ---
Re-Evaluation Intro: CHARISSA ALBARRAN, It has been my pleasure to treat RUFINA MASCORRO over the last 11 visits for left IF radial collateral lig. Please see the progress note below for an update on the occupational therapy plan of care! Subjective Subjective: pt arrives doing well overall 10 weeks and 2 days Objective Objective/Function: pt has been progressing well in POC. working toward improved ROM now able to make full composite fist. does demo -10 ext at PIP of IF L hand. ed on reverse blocking as well as rubber band ex to strengthen extensors. working on improving overall medical records administrator of L hand at this time. L IF MP 80 PIP -10/95 DIP 65 medical records administrator L 60 R 85 Plan Plan Frequency: 1x/Week Duration: 4 Weeks Visits in this POC: 16 Plan: General Plan: Phase 1: Day 0-14 splint all times phase 2 ( week 2-4) early mobilization Splint to custom orthosis (MP ext) allowing PIP and DIP motion- May begin protected AROM of MCP joint in flexion/extension only Night use: splint Shashi Loop Option: introduce wide shashi loop splint during the day to allow for controlled motion while preventing ulnar deviation Phase 3: Intermediate Recovery (week 5-8) daytime: continue shashi loop splint for protection during light activity nighttime: may contnue MP extension splint if instability or painful Goal gradual increase in MCP joint motion wile maintaining ligament integrity Phase 4 late recovery (week 8-12) D/C splint if MCP joint is stable and pain-free Functional splint: optional use of shashi loop during high-risk activity ( gripping/lifting) Therapy focus on strengthening and proprioception: Goals Goals Patient Goals: Regain Mobility, Decrease Pain, Improve Fine Motor Skills, Use Hand/Wrist/Arm Normally Again and Be More Independent in ADLS Goal:Daily scar massage when approriate: Yes Goal:ROM equal to unaffected hand: Yes Goal:Icu Tech/Pinch strength at least 75% of unaffected hand: Yes Goal:No pain with affected hand use: Yes Goal:PIP Circumferences equal to unaffected hand: Yes Goal:Full use of affected hand in daily activities including work: Yes Goal:Decrease scar hypersensitivity: Yes Anticipated Interventions Anticipated Interventions Anticipated Interventions: Early Active Motion, A/AAROM/PROM, Strengthening, Scar Care, Triggerpoint Release, Modalities, Orthoses, Joint Protection/Energy Conservation, Ergonomic Education, Education re assistive Equipment, Education re Diagnosis, Caregiver Training and Home Program Re-Evaluation Ending Re-evaluation ending: Please do not hesitate to contact me at [phone] by phone or if you have questions or concerns regarding this new plan of care! Sincerely, Trudi Go
--- NOTE | 2025-08-03 14:52 | HP.OT.NRP ---
Patient Information Patient Information: RUFINA MSACORRO was seen in my office for initial evaluation on 05/18/25. The following Plan of Care was established for this patient: POC Established Initial Frequency: 1x/Week Initial Duration: 4 Weeks Plan: General Plan: Phase 1: Day 0-14 splint all times phase 2 ( week 2-4) early mobilization Splint to custom orthosis (MP ext) allowing PIP and DIP motion- May begin protected AROM of MCP joint in flexion/extension only Night use: splint Shashi Loop Option: introduce wide shashi loop splint during the day to allow for controlled motion while preventing ulnar deviation Phase 3: Intermediate Recovery (week 5-8) daytime: continue shashi loop splint for protection during light activity nighttime: may contnue MP extension splint if instability or painful Goal gradual increase in MCP joint motion wile maintaining ligament integrity Phase 4 late recovery (week 8-12) D/C splint if MCP joint is stable and pain-free Functional splint: optional use of shashi loop during high-risk activity ( gripping/lifting) Therapy focus on strengthening and proprioception: Anticipated Interventions Anticipated Interventions: Early Active Motion, A/AAROM/PROM, Strengthening, Scar Care, Triggerpoint Release, Modalities, Orthoses, Joint Protection/Energy Conservation, Ergonomic Education, Education re assistive Equipment, Education re Diagnosis, Caregiver Training and Home Program Last Seen Last Seen: This patient was last seen in our office 07/27/25. Pertinent comments regarding their Occupational therapy will appear below: This 59 year old male seen by OT with dx of L hand IF radial rupture. Pt progressed throughout POC in ROM as well as strength decreased pain as well as swelling with gradual resume of day to day activities. 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 discharge from OT caseload at this time with pt in agreeance. At this point I will be discontinuing this patient from occupational therapy. I would be happy to see this patient again in the future if found appropriate by the physician. Thank you! Trudi Go
== END 2025-07-27 19:00 | disposition home or self-care (01) ==
LOC: OT 13:00
PROVIDERS: PCP Internal Medicine
DX: S53.20XD Traumatic rupture of unspecified radial collateral ligament, subsequent encounter (principal); Z98.890 Other specified postprocedural states
CPT/HCPCS: 97110; 97140; 97167; 97530

== ENCOUNTER → 2025-08-23 | Outpatient (CLI) | payer BC, SELFPAY ==
[2025-08-23 17:56] LABS: Hematocrit 43.2 % (40-54); Hemoglobin 15.2 g/dL (13.0-16.5); Immature Granulocytes Count 0.030 X10^3/uL (0.0-0.0); Mean Corp Hgb Conc 35.2 g/dL (32-36); Mean Corpuscular Volume 93.1 fL (80-94); Mean Platelet Vol. 9.9 fl (6.2-12.0); NRBC Flagged by Analyzer 0 % (0-5); Platelet Count 259 K/mm3 (150-450); RBC Distribution Width CV 13.1 % (11.6-14.6); RBC Distribution Width SD 44.3 fl (35.1-43.9); Red Blood Count 4.64 M/mm3 (4.6-6.2); White Blood Count 9.0 K/mm3 (4.4-11.0)
[2025-08-23 18:00] LABS: AST(SGOT) 29 U/L (<=37); Alanine Aminotransfer ALT/SGPT 37 U/L (<=46); Albumin, Serum 4.2 g/dL (3.5-5.0); Alkaline Phosphatase 79 U/L (40-129); Anion Gap 11 (5-15); BUN 13 mg/dL (4-19); BUN/Creat Ratio 12.3 RATIO (10-20); Calcium,Total 9.4 mg/dL (7.6-11.0); Carbon Dioxide 24.7 mmol/L (21.0-32.0); Chloride 104 mmol/L (98-108); Globulin 3.0 g/dL (2.2-4.2); Glucose 101 mg/dL (70-99); Potassium 4.4 mmol/L (3.3-5.1)
== END | disposition home or self-care (01) ==
LOC: MTLAB 13:59
PROVIDERS: PCP Internal Medicine; Referring Provider Internal Medicine Rheumatology; Visit Provider Internal Medicine Rheumatology
DX: L40.59 Other psoriatic arthropathy (principal); Z79.899 Other long term (current) drug therapy; L40.8 Other psoriasis
CPT/HCPCS: 36415; 80053; 85025